=== PATIENT | female | born 1980 | race Caucasian/White ===

== ENCOUNTER → 2020-04-21 08:24 | Outpatient (BNVA) | payer MEDICAID, SELFPAY | PROVIDERS: Family Provider Physician Assistant Medical; PCP Physician Assistant Medical; Referring Provider Family Medicine; Visit Provider Anesthesiology Pain Medicine | DX: G89.29 Other chronic pain (principal); M54.41 Lumbago with sciatica, right side; M51.36 Other intervertebral disc degeneration, lumbar region; M47.816 Spondylosis without myelopathy or radiculopathy, lumbar region; M54.9 Dorsalgia, unspecified; M51.9 Unspecified thoracic, thoracolumbar and lumbosacral intervertebral disc disorder; M54.16 Radiculopathy, lumbar region; F17.210 Nicotine dependence, cigarettes, uncomplicated; Z79.899 Other long term (current) drug therapy | CPT/HCPCS: 99203 ==

== ENCOUNTER 2020-04-28 08:48 | Outpatient (CLI) | payer MEDICAID, SELFPAY ==
--- NOTE | 2020-04-28 09:00 | MR_ITS ---
WS: [id number] MRI LUMBAR SPINE NONCONTRAST TECHNIQUE: Sagittal T1, T2 and STIR imaging. Axial T1 and T2 imaging. CLINICAL INFORMATION: LUMBAR RADICULOPATHY COMPARISON: None. FINDINGS: Mild lumbar curve. No acute compression. No high-grade central canal stenosis. L1-L2: Normal L2-L3: No significant disc bulging. Mild facet arthropathy. Spinal canal and foramen are patent. L3-L4: No significant disc bulging. Moderate facet arthropathy. Spinal canal and foramen are patent. L4-L5: Minimal annular bulging. Mild left and no significant right foraminal narrowing. Moderate face t arthropathy. Slight narrowing of the subarticular recess bilaterally. L5-S1: Minimal annular bulging. Slight effacement of ventral thecal sac. Spinal canal and foramen are patent. Mild to moderate facet arthropathy. Visualized pelvic bony structures: Normal. Paravertebral soft tissues: Normal. MR/MR lumbar spine wo con* [id number] IMPRESSION: 1. Mild lumbar curve. No acute compression. No high-grade central canal stenos is. 2. Mild annular bulging L4-5 with slight narrowing of the subarticular recess bilaterally. Mild left foraminal narrowing. Moderate facet arthropathy at this level. 3. Minimal annular bulging L5-S1. Spinal canal and foramen are patent. 4. Mild to moderate facet arthropathy L3-L4 and L5-S1.
== END 2020-04-28 08:49 | disposition home or self-care (01) ==
LOC: RADWPI 08:52
PROVIDERS: PCP Physician Assistant Medical; Visit Provider Anesthesiology Pain Medicine
DX: M54.16 Radiculopathy, lumbar region (principal); M51.27 Other intervertebral disc displacement, lumbosacral region; M47.816 Spondylosis without myelopathy or radiculopathy, lumbar region; M47.817 Spondylosis without myelopathy or radiculopathy, lumbosacral region
CPT/HCPCS: 72148

== ENCOUNTER 2020-05-19 11:33 | Outpatient (CLI) | payer MEDICAID, SELFPAY ==
--- NOTE | 2020-05-19 12:15 | XR_ITS ---
WS: [id number] KUB, 05/19/2020 Clinical Data: RENAL STONE Comparison: CT abdomen and pelvis, 05/18/2020 Findings: No abnormal intraabdominal masses or calcifications are seen. There is no dilatated small bowel or ev idence of obstruction. There is a large amount of fecal material throughout the colon obscuring detail. The patient has had upper abdominal surgery. There are also clips overlying the sacrum from surgery. XR/XR KUB [id number] Impression: Negative KUB.
== END 2020-05-19 11:34 | disposition home or self-care (01) ==
LOC: RAD 11:35
PROVIDERS: PCP Physician Assistant Medical; Visit Provider Urology
DX: N20.0 Calculus of kidney (principal); G89.29 Other chronic pain; M54.41 Lumbago with sciatica, right side; F17.210 Nicotine dependence, cigarettes, uncomplicated; M47.816 Spondylosis without myelopathy or radiculopathy, lumbar region; M51.36 Other intervertebral disc degeneration, lumbar region; M54.16 Radiculopathy, lumbar region; M51.9 Unspecified thoracic, thoracolumbar and lumbosacral intervertebral disc disorder; M54.9 Dorsalgia, unspecified; Z79.891 Long term (current) use of opiate analgesic
CPT/HCPCS: 74018; 81003; 87635; 99214

== ENCOUNTER 2020-05-20 11:02 | Day surgery (SDC) | payer MEDICAID, SELFPAY ==
[2020-05-19 17:09] VITALS: BMI 46.5
[2020-05-20] VITALS (9 sets, daily range): BP systolic 133–168; BP diastolic 82–121; PULSE 88–100; RESP 12–18; TEMP 36.2–36.3; O2SAT 93–98
--- NOTE | 2020-05-20 | SCC_ITS ---
Procedure Done: 1. Right retrograde ureteropyelogram 2. Cystoscopy, ureteroscopy, laser lithotripsy, stent 78.5 seconds of fluoroscopic guidance, for a cumulative dose of 40.56 mGy, was provided to Dr. Muhammad by the radiology department. C-arm images of the abdomen were saved for the patient's permanent record. [facility]
--- NOTE | 2020-05-20 11:14 | SC_ITS ---
WS: [id number] C-arm fluoroscopy view of the abdomen for right retrograde urogram, 05/20/2020 Clinical Data: Right ureteroscopy, stone Comparison: KUB, 05/19/2020. Findings: Dr. Muhammad injected contrast into the right ureter and then placed a right ureteral stent. SC/C-arm FL for Urology Impression: Placement of right ureteral stent.
[2020-05-20] MEDS: sodium chloride 0.9% 1,000 ML 30 ML IV (12:05)
--- NOTE | 2020-05-20 12:24 | ANES.PREANE2 ---
Pre-Anesthetic Assessment Pre-Anesthetic Assessment: Height/Weight: Height 1.63 m Weight 122.924 kg Temp Pulse Resp BP Pulse Ox 97.4 F L 100 18 133/91 93 05/20/20 11:32 05/20/20 11:32 05/20/20 11:32 05/20/20 11:32 05/20/20 11:32 Preop Diagnosis: Refractory, symptomatic, right ureteral calculus Proposed Procedure: Operation Date: 05/20/20 12:55 Proposed Procedures p Laser Lithotripsy 85280 [id number] N20.1(Not Applicable) - Aleksey Muhammad MD s Cystoscopy(Not Applicable) - MD jean-claude Sanabria right Retrograde Pyelogram(Right) - MD jean-claude Sanabria Ureteroscopy(Not Applicable) - MD jean-claude Sanabria Ureteral Stent Placement(Not Applicable) - Aleksey Muhammad MD Familial anesthetic complications: none Was Beta Micheline taken within 24 hours: N/A Last intake: Intake Last Liquid Date 05/19/20 Last Liquid Time 20:00 Last Solid Date 05/19/20 Last Solid Time 13:00 Social: Social History: Tobacco and No alcohol Exam: Pre-Anes Outpt Exam: alert, oriented x 3, clear to auscultation bilaterally and regular rate & rhythm Airway: Cervical ROM: WNL MP: 4 Dentition: Other (no teeth) Metabolic: Metabolic: Morbid obesity and Thyroid Anesthetic Plan: ASA status: 2 Anesthesia: General Risk of > 500 ml blood loss (7ml/kg in children): No Meds/Allergies Current Medications: Current Medications Generic Name Dose Route Start Last Admin Trade Name Freq PRN Reason Stop Dose Admin Sodium Chloride 1,000 mls @ 30 ml s/hr 05/20/20 08:00 05/20/20 12:05 Sodium Chloride 0.9% IV 05/21/20 07:59 30 mls/hr .Q24H TOD Administration PFSH Anesthesia PFSH: Medical History History of abdominal hernia X2 Hypothyroidism Renal stones Right ureteral calculus Surgical History H/O: hysterectomy Hx of appendectomy Hx of knee surgery right Hx of laparoscopic gastric banding Family History Mother CAD (coronary artery disease) Stroke Father CAD (coronary artery disease) Other Cancer Diabetes Hypertension Social History Smoking and tobacco status: current every day smoker cigarettes Packs smoked per day: 1 Years cigarettes smoked: 28 Alcohol intake: never Marital status: Legally Current occupational status: disabled History of recent travel: No Data Anesthesia Cardiac Studies: No Data to Display
--- NOTE | 2020-05-20 12:33 | P.HPUD_ITS ---
Surgery/Procedure H&P Update DATE OF PROCEDURE: May 20, 2020 DATE H&P PERFORMED: 05/19/20 H&P UPDATE INFORMATION: I have reviewed H&P completed within last 30 days, I have examined patient prior to procedure, No changes to prior documentation and H&P is in [facility] [place] EMR on date indicated PREOP DIAGNOSIS: Refractory, symptomatic, right ureteral calculus PLANNED PROCEDURE: Operation Date: 05/20/20 12:55 Proposed Procedures p Laser Lithotripsy [id number] N20.1(Not Applicable) - Aleksey Muhammad MD s Cystoscopy(Not Applicable) - MD jean-claude Sanabria right Retrograde Pyelogram(Right) - MD jean-claude Sanabria Ureteroscopy(Not Applicable) - MD jean-claude Sanabria Ureteral Stent Placement(Not Applicable) - Aleksey Muhammad MD
[2020-05-20] MEDS: levofloxacin-dextrose 5 % 500 MG/100 ML PREMIX 100 MG IV (14:09)
--- NOTE | 2020-05-20 14:15 | P.OP_ITS ---
Operative Report Date of procedure: May 20, 2020 Pre-op Diagnosis: Refractory, symptomatic, right ureteral calculus Post-op diagnosis: same Procedure Done: 1. Right retrograde ureteropyelogram 2. Cystoscopy, ureteroscopy, laser lithotripsy, stent Implants: Right ureteral stent Pathology: Only tiny sand particles Surgeon: Sabina Anesthesia: General Estimated blood loss: minimal Urine output: Not measured Complications: None Condition: stable Disposition: PACU Brief History: Julissa is a very pleasant 39-year-old white female recently diagnosed at [place] emergency department with a large obstructing right ureteral calculus with severe pain. She was able to be managed as an outpatient but persisted having severe pain that she could marginally control at best. Thankfully she had no infection. We reviewed the option for ESWL when the machine was available on 05/24/2020 versus urgent endoscopy and because of the severity of her pain and the degree of obstruction she elected to proceed with endoscopic laser lithotripsy. Covid test is pending. Appropriate precautions will be taken. - Procedure: After urgent evaluation examination and obtaining of informed consent she was taken to the operating suite on 05/21/2020 where general anesthesia was administered without difficulty after appropriate timeout was performed, SCDs confirmed to be functioning, preoperative antibiotics administered, beta-davi protocol confirmed. Prepped and draped in usual sterile fashion in dorsolithotomy position paying careful attention to avoiding pressure points. The 21 Peruvian cystoscope with 30 degree lens was introduced into the urethral meatus and advanced into the bladder under videoscopy. The bladder was systematically examined. No stones were seen. An 8 Peruvian cone-tipped catheter was intubated into the right ureteral orifice for right retrograde ureteropyelogram: The distal ureter showed normal course and caliber. The stone was identified as a filling defect in the expected position in the ureter proximal to that point was severely dilated. No other obvious filling defects were identified. A flexible tip guidewire was then advanced up the right ureter bypassing the stone and secured to the drapes as a safety wire. A second guidewire was passed in the distal ureter was dilated with a 15 Peruvian 4 cm balloon. The second wire was also utilized forAttempted passage of a 24 cm ureteral access sheath but the sheath would not easily advanced beyond the distal ureter and for that reason it was abandoned. A 7.5 Peruvian offset semirigid ureteroscope was then advanced up the sheath over the working wire and the stone was encountered in the expected position. A 365 ?m thulium superpulse laser fiber was utilized to fragment the stone with excellent change. The fragments were flushed out of the ureter and also removed with the combination of basketing and grasping forceps. Some of the fragments migrated into the renal pelvis. The scope was then passed into the proximal ureter and no additional fragments were seen. The scope was removed and no significant fragments were identified in the ureter distal to the UPJ. A flexible ureteroscope was then passed over the safety wire into the renal pelvis and contrast was injected. Sequential examination of the renal pelvis and calyceal system revealed several stone fragments that were then completely fragmented into sand. These included the upper pole and lower pole calyx as well. Because of the inflammation at the site of the stone lodging it was decided to leave a stent indwelling and a 7 Peruvian by 26 cm double-pigtail stent without string was then advanced over the guidewire through the cystoscope into appropriate position as confirmed via fluoroscopy and cystoscopy. The procedure was completed. She tolerated the procedure well without complications and was awakened in the operating room and returned to recovery in stable condition. PLANS: 1. Anticipate discharge from outpatient surgery 2. Follow-up late next week in my office for cystoscopy and stent removal. KUB first. -
[2020-05-20] MEDS: iohexol 300 mg/mL 50 mL Btl (OR ONLY) XX (14:56)
--- NOTE | 2020-05-20 15:36 | SUR.PHASEI ---
1536- ORAL AIRWAY OUT, SIMPLE MASK AT 10LPM SAT 97%
[2020-05-20] MEDS: HYDROcodone-acetaminophen 5-325 mg Tablet 1 TAB PO (16:17)
--- NOTE | 2020-05-20 17:26 | ANE.PACU2 ---
Inpatient post-anesthesia follow up: Airway intact: Yes Vital signs: Temperature 97.2 F Pulse Rate 97 Respiratory Rate 18 Blood Pressure 160/121 Pulse Oximetry 98 Oxygen Delivery Me thod Nasal Cannula Oxygen Flow Rate 2 Fraction of Inspir ed Oxygen Hydration adequate: Yes Nausea and vomiting: No Pain level: 2 Mental status: Baseline
[2020-05-26 21:43] LABS: Stone Source RIGHT URETER STONE
== END 2020-05-20 16:45 | disposition home or self-care (01) ==
PROVIDERS: PCP Physician Assistant Medical; Visit Provider Urology
PROC: (CPT 52356; principal; 2020-05-20 12:55)
PROC: 0TJB8ZZ Inspection of Bladder, Via Natural or Artificial Opening Endoscopic (ICD-10-PCS; CPT 52000; 2020-05-20 12:55)
PROC: (CPT 74420; 2020-05-20 12:55)
PROC: 0TJ98ZZ Inspection of Ureter, Via Natural or Artificial Opening Endoscopic (ICD-10-PCS; CPT 52351; 2020-05-20 12:55)
PROC: (CPT 50605; 2020-05-20 12:55)
DX: N20.1 Calculus of ureter (principal); E66.01 Morbid (severe) obesity due to excess calories; Z68.42 Body mass index [BMI] 45.0-49.9, adult; E03.9 Hypothyroidism, unspecified; F17.210 Nicotine dependence, cigarettes, uncomplicated
CPT/HCPCS: 52356; 12345; 76000; 82365; 88300; C1725; C2625; J0330; J1100; J1956; J2405; J2704; J3010; J7030

== ENCOUNTER 2020-05-28 08:44 | Outpatient (CLI) | payer MEDICAID, SELFPAY ==
--- NOTE | 2020-05-28 09:30 | XR_ITS ---
WS: [id number] XR KUB [id number] REASON FOR EXAM: URETERAL STONE FINDINGS: Small calculus over the lower pole the right kidney confirmed with CT scan 05/18/2020. Ureteral stent in place on the right. The right ureteral calculus demonstrated on the CT scan is not identified along the course of the ureteral stent or within the confines of the bladder. No other significant findings. XR/XR KUB [id number] IMPRESSION: Right ureteral stent. Previously identified right ureteral calculus no longer i dentifiable. Small right renal calculus.
== END 2020-05-28 08:45 | disposition home or self-care (01) ==
LOC: RAD 08:45
PROVIDERS: PCP Physician Assistant Medical; Visit Provider Urology
DX: N20.1 Calculus of ureter (principal); N20.0 Calculus of kidney; Z96.0 Presence of urogenital implants
CPT/HCPCS: 74018; 81003

== ENCOUNTER 2020-09-28 13:26 | Outpatient (CLI) | payer MEDICAID, SELFPAY ==
--- NOTE | 2020-09-28 13:15 | XRR_ITS ---
PROCEDURE INFORMATION: Exam: XR Abdomen Exam date and time: 09/28/2020 1:33 PM Age: 39 years old Clinical indication: Condition or disease; Kidney or ureter condition; Calculus (stone) in kidney; Prior surgery; Surgery type: Hernia, lap band, appendectomy, hyst; Additional info: Renal stones TECHNIQUE: Imaging protocol: XR of the abdomen. Views: Frontal supine view of the abdomen. 1 View. COMPARISON: CR XR KUB [id number] 05/28/2020 8:53 AM FINDINGS: Tubes, catheters and devices: Interval removal of previously visualized right double-J catheter. Surgical clips overlying the right pelvis. Gastrointestinal tract: Prominent stool. Mild gaseous dilatation of the stomach with underlying lap band. Organs: Evaluation of the renal fossa is limited due to overlying bowel gas and stool. Vasculature: Multiple subcentimeter pelvic calcifications, the majority of which are believed to be vascular in etiology. If urolithiasis is of clinical concern, CT may be of benefit for further evaluation. Bones/joints: Mild degenerative change. Asymmetric right sacroiliac joint sclerosis. XR/XR KUB [id number] IMPRESSION: 1. Evaluation of the renal fossa is limited due to overlying bowel gas and stool. 2. Multiple subcentimeter pelvic calcifications, the majority of which are believed to be vascular in etiology. 3. Additional findings as described above.
== END 2020-09-28 13:27 | disposition home or self-care (01) ==
LOC: RAD 13:28
PROVIDERS: PCP Physician Assistant Medical; Visit Provider Urology
DX: N20.0 Calculus of kidney (principal)
CPT/HCPCS: 74018; 81003

== ENCOUNTER 2020-10-25 10:27 | Outpatient (CLI) | payer MEDICAID, SELFPAY ==
--- NOTE | 2020-10-25 10:34 | XRR_ITS ---
PROCEDURE INFORMATION: Exam: XR Lumbosacral Spine Exam date and time: 10/25/2020 10:37 AM Age: 39 years old Clinical indication: Low back pain; Prior surgery; Surgery type: Lap band TECHNIQUE: Imaging protocol: XR of the lumbosacral spine. Views: 2 or 3 views. COMPARISON: MR lumbar spine wo con* [id number] 04/28/2020 9:06 AM FINDINGS: Bones/joints: Mild degenerative change. Anatomic alignment, without instability. Other: Vascular calcification. XR/XR lumbar spine f/e only [id number] IMPRESSION: Mild degenerative change.
== END 2020-10-25 10:28 | disposition home or self-care (01) ==
LOC: RAD 10:31
PROVIDERS: PCP Physician Assistant Medical; Visit Provider Nurse Practitioner
DX: M54.5 Low back pain (principal)
CPT/HCPCS: 72120

== ENCOUNTER 2020-10-29 18:31 | Emergency (ER) | payer MEDICAID, SELFPAY ==
[2020-10-29 18:57] VITALS: BP 145/93; PULSE 85; RESP 21; TEMP 36.6; O2SAT 96; BMI 46.7
--- NOTE | 2020-10-29 19:09 | ED_ITS ---
HPI - Abdominal Pain General: Chief Complaint: Abdominal Pain Stated Complaint: ab pain Time Seen by Provider: 10/29/20 19:06 Source: patient Mode of arrival: ambulatory Limitations: no limitations History of Present Illness: HPI narrative: 39-year-old female states been having left side abdominal pain over the last 2 weeks. States she had a cough and she has been concerned that she may have disrupted mesh she has in her abdomen for hernia. States she has had sharp pain is worse with movement and cough. States improved respiratory the pain is currently 7 out of 10. Denies any vomiting or diarrhea. Associated Symptoms: Denies chills, dysuria and fever(s) Review of Systems Const: Denies: fever(s), chills, body aches or change in appetite Eyes: Denies: blurry vision or eye discomfort ENMT: Denies: throat pain or dental pain Card: Denies: chest pain Resp: Denies: dyspnea GI: Reports: abdominal pain : Denies: dysuria Musc: Denies: neck pain or back pain Skin/Breast: Denies: rash Neuro: Denies: headache(s) Psych: Denies: depression Ney/Lymph: Denies: easy bruising All/Imm: Denies: urticaria PFSH ED 2 PFSH: Medical History DM2 (diabetes mellitus, type 2) Dyslipidemia History of abdominal hernia X2 Hypothyroidism Low back pain with sciatica Major depressive disorder without psychotic features Renal stones Right ureteral calculus Surgical History H/O: hysterectomy Hx of appendectomy Hx of knee surgery right Hx of laparoscopic gastric banding Family History Mother CAD (coronary artery disease) Stroke Father CAD (coronary artery disease) Other Cancer Diabetes Hypertension Social History Smoking and tobacco status: current every day smoker cigarettes Packs smoked per day: 1 Years cigarettes smoked: 28 Alcohol intake: never Marital status: Legally Current occupational status: disabled History of recent travel: No Physical Exam Const: COMMON NORMALS: no acute distress, patient oriented x3 and healthy appearing HENMT: COMMON NORMALS: normocephalic and atraumatic HEAD & SCALP: normocephalic and atraumatic Eye: COMMON NORMALS: Equal, round and reactive pupils present and EOMs intact bilaterally PUPIL: Yes Equal, round and reactive pupils present Neck/C-Spine: COMMON NORMALS: full ROM and supple Chest: COMMONS NORMALS: normal inspection of the chest and normal palpation of entire chest wall Resp: COMMON NORMALS: normal respiratory effort, No retractions, No use of accessory muscles and clear to auscultation bilaterally AUSCULTATION: clear to auscultation bilaterally Cardio: COMMON NORMALS: regular rate, regular rhythm and No murmurs present (Cardio) RATE: regular rate RHYTHM: regular rhythm GI: COMMON NORMALS: Normal to inspection, nondistended, normoactive bowel sounds present, Soft to palpation and no masses PALPATION: Yes Soft to palpation OTHER: diffuse tenderness Extremity: COMMON NORMALS: normal to inspection and full ROM Neuro: COMMON NORMALS: patient oriented x3, moves all extremities and no focal motor deficits Psych: COMMON NORMALS: mental status grossly normal, Normal thought process present and cooperative THOUGHT PROCESS: Normal thought process present Skin: COMMON NORMALS: no rashes or lesions noted and no wounds GENERAL SKIN EXAM: no rashes or lesions noted Course Vital Signs: Vital signs: Vital Signs Temperature 97.8 F 10/29/20 18:57 Pulse Rate 85 10/29/20 18:57 Respiratory Rate 21 H 10/29/20 18:57 Blood Pressure 145/93 10/29/20 18:57 Pulse Oximetry 96 10/29/20 18:57 MDM - Abdominal Pain MDM Narrative: Medical decision making narrative: Patient presents here with abdominal pain. CT showed a possible small kidney stone. Her pain is much improved here. Other findings are all normal. She is stable for discharge and return if worsening. She understands agrees to plan. Lab Data: Labs: Lab Results 10/29/20 10/29/20 10/29/20 Range/Units 19:15 19:15 19:26 WBC 11.7 H (4.0-10.0) 10^3/ uL RBC 5.58 H (4.1-5.3) 10^6/u L Hgb 16.0 H (11.5-15.3) g/dL Hct 47.9 H (37.0-47.0) % MCV 85.8 (81-99) fL MCH 28.7 (28.0-34.0) pg MCHC 33.4 (30.0-36.0) g/dL RDW 13.0 (12.1-15.1) % Plt Count 213 (130-400) 10^3/c mm MPV 13.0 H (7.4-10.4) fL Neut % (Auto) 61.7 % Lymph % (Auto) 28.9 % [place] % (Auto) 6.2 % Eos % (Auto) 2.4 % Baso % (Auto) 0.5 % Neut # (Auto) 7.19 (1.8-7.7) 10^3/u L Lymph # (Auto) 3.4 (0.8-4.8) 10^3/u L [place] # (Auto) 0.7 (0.2-0.9) 10^3/u L Eos # (Auto) 0.3 (0.0-0.8) 10^3/u L Baso # (Auto) 0.1 (0.0-0.1) 10^3/u L Nucleated RBC % (a uto) 0 % Nucleated RBCs # 0.0 /100WBC Sodium (136-145) mmol/L Potassium (3.5-5.1) mmol/L Chloride (98-107) mmol/L Carbon Dioxide (22-29) mmol/L Anion Gap (5-19) BUN (6-20) mg/dL Creatinine (0.5-0.9) mg/dL GFR Calculation (90-130) mL/min Glucose (65-115) mg/dL Calculated Osmolal ity (285-295) mOsm/k g Calcium (8.5-10.5) mg/dL Total Bilirubin (0.15-1.2) mg/dL AST (0-32) U/L ALT (0-33) U/L Alkaline Phosphata se (35-105) IU/L Total Protein (6.6-8.7) g/dL Albumin (3.5-5.2) g/dL Globulin (1.3-4.6) g/dL Lipase (13-60) U/L HCG, Qual Negative (Negative) Urine Color Yellow (Yellow) Urine Appearance Clear (CLEAR) Urine pH 5 (5-7) Ur Specific Gravit y 1.010 (1.005-1.030) Urine Protein Neg (Negative) Urine Glucose (UA) Norm (Normal) Urine Ketones Negative (Negative) Urine Blood Neg (Negative) Urine Nitrate Negative (Negative) Urine Bilirubin Neg (Negative) Urine Urobilinogen Norm (Negative) mg/dL Ur Leukocyte Quynh ase 1+ H (Negative) Urine RBC 0-4 H (0-2) /hpf Urine WBC 5-10 H (0-5) /hpf Ur Squamous Epith Cells 5-10 H (0-5) /hpf Amorphous Sediment Not Reportable Urine Bacteria Trace (NONE) /hpf 10/29/20 Range/Units 19:26 WBC (4.0-10.0) 10^3/ uL RBC (4.1-5.3) 10^6/u L Hgb (11.5-15.3) g/dL Hct (37.0-47.0) % MCV (81-99) fL MCH (28.0-34.0) pg MCHC (30.0-36.0) g/dL RDW (12.1-15.1) % Plt Count (130-400) 10^3/c mm MPV (7.4-10.4) fL Neut % (Auto) % Lymph % (Auto) % [place] % (Auto) % Eos % (Auto) % Baso % (Auto) % Neut # (Auto) (1.8-7.7) 10^3/u L Lymph # (Auto) (0.8-4.8) 10^3/u L [place] # (Auto) (0.2-0.9) 10^3/u L Eos # (Auto) (0.0-0.8) 10^3/u L Baso # (Auto) (0.0-0.1) 10^3/u L Nucleated RBC % (a uto) % Nucleated RBCs # /100WBC Sodium 135 L (136-145) mmol/L Potassium 4.1 (3.5-5.1) mmol/L Chloride 98 (98-107) mmol/L Carbon Dioxide 26 (22-29) mmol/L Anion Gap 15.1 (5-19) BUN 8 (6-20) mg/dL Creatinine 0.6 (0.5-0.9) mg/dL GFR Calculation 110.2 (90-130) mL/min Glucose 111 (65-115) mg/dL Calculated Osmolal ity 279 L (285-295) mOsm/k g Calcium 9.0 (8.5-10.5) mg/dL Total Bilirubin 0.2 (0.15-1.2) mg/dL AST 15 (0-32) U/L ALT 20 (0-33) U/L Alkaline Phosphata se 83 (35-105) IU/L Total Protein 7.3 (6.6-8.7) g/dL Albumin 4.0 (3.5-5.2) g/dL Globulin 3.3 (1.3-4.6) g/dL Lipase 28 (13-60) U/L HCG, Qual (Negative) Urine Color (Yellow) Urine Appearance (CLEAR) Urine pH (5-7) Ur Specific Gravit y (1.005-1.030) Urine Protein (Negative) Urine Glucose (UA) (Normal) Urine Ketones (Negative) Urine Blood (Negative) Urine Nitrate (Negative) Urine Bilirubin (Negative) Urine Urobilinogen (Negative) mg/dL Ur Leukocyte Quynh ase (Negative) Urine RBC (0-2) /hpf Urine WBC (0-5) /hpf Ur Squamous Epith Cells (0-5) /hpf Amorphous Sediment Urine Bacteria (NONE) /hpf Imaging Data ^: CT Abd/Pel: Attestation: I personally reviewed and interpreted this imaging study as follows: Radiologist's impression: [address] [address] [address] Scan Report Signed Patient: Julissa Avalos Unit #: [id number] : 1980 Age/Sex: 39 / F ADM Date: 10/29/20 Loc: ER Room/Bed: Attending Dr: Ordering Provider/Ordering MD: Ajay Coffman MD Date of Service: 10/29/20 Procedure(s): CT abdomen pelvis w con* [id number] Accession Number(s): [id number] Report Number: [id number] PROCEDURE INFORMATION: Exam: CT Abdomen And Pelvis With Contrast Exam date and time: 10/29/2020 7:56 PM Age: 39 years old Clinical indication: Abdominal pain; Localized; Left lower quadrant (llq); Prior surgery; Surgery type: Hernia. Appy. Hyst. Lap band. ; Patient HX: Llq pain. ; Additional info: Abd pain TECHNIQUE: Imaging protocol: Computed tomography of the abdomen and pelvis with contrast. Total images: 273 Radiation optimization: All CT scans at this facility use at least one of these dose optimization techniques: automated exposure control; mA and/or kV adjustment per patient size (includes targeted exams where dose is matched to clinical indication); or iterative reconstruction. Contrast material: OMNI 300; Contrast volume: 95 ml; Contrast route: INTRAVENOUS (IV); COMPARISON: CT Abdomen/Pelvis Renal [id number] 05/18/2020 8:03 AM RADIATION DOSE METRICS: Total DLP (mGy-cm): 1821.42 FINDINGS: Lungs: Limited assessment of the lung bases fails to reveal evidence for acute cardiopulmonary process. Scant right pleural effusion. Liver: Diffuse fatty infiltration of the liver with hepatomegaly. No visible hepatic mass or cystic structure. Gallbladder and bile ducts: Normal. No calcified stones. No ductal dilation. Pancreas: Pancreas unremarkable. No visible pancreatic ductal ectasia. Spleen: Normal. No splenomegaly. Adrenal glands: Adrenal glands unremarkable. Kidneys and ureters: Minimal left pelvicaliectasis to a tiny 2 mm proximal left ureterolithiasis (series 2, image 48 and series 602, image 37). No visible residual nephrolithiasis. No hydronephrosis, nephrolithiasis, or ureterolithiasis right kidney. Stomach and bowel: Gastric banding procedure. Assessment of the hollow viscus fails to reveal evidence of active or acute pathology. Nonobstructed bowel pattern. No visible acute diverticulitis. No visible adynamic or reactive ileus. Appendix: Status post appendectomy. Intraperitoneal space: No visible pneumoperitoneum or intraperitoneal ascites. No visible evidence of mesenteric lymphadenitis or active mesenteritis/panniculitis. Vasculature: Portal vein patent. The abdominal aorta is nonaneurysmal. Mild arterial sclerotic disease. Lymph nodes: No current visible evidence of active mesenteric or retroperitoneal lymphadenopathy. Urinary bladder: Urinary bladder unremarkable. Reproductive: Status post hysterectomy. Bones/joints: No visible active or acute osseous pathology. Mild scoliotic curvature of the spine. Soft tissues: Unremarkable. Other findings: Marked obesity. CT/CT abdomen pelvis w con* [id number] IMPRESSION: Minimal left pelvicaliectasis to a tiny 2 mm proximal left ureterolithiasis. No visible residual nephrolithiasis. Radiation Dose CTDIVOL = (mGy): DLP = 1821 Discharge Plan Discharge Patient Disposition: Home Clinical Impression: Abdominal pain Qualifiers: Abdominal location: left upper quadrant Qualified Code(s): R10.12 - Left upper quadrant pain Condition: Stable Prescriptions: New ondansetron 4 mg tablet,disintegrating 4 mg PO Q6H PRN (Reason: nausea and vomiting) Qty: 14 RF: 0 tramadol 50 mg tablet 50 mg PO Q8H PRN (Reason: pain) Qty: 20 RF: 0 No Action Vraylar 3 mg capsule 3 mg PO DAILY@0900 RF: 0 doxazosin 2 mg tablet 2 mg PO DAILY@1999 RF: 0 propranolol 10 mg tablet 10 mg PO BID@ RF: 0 levothyroxine 88 mcg capsule 88 mcg PO DAILY@0900 RF: 0 metformin 1,000 mg tablet 1,000 mg PO BID@ RF: 0 cetirizine 10 mg Tablet 10 mg PO DAILY@0900 RF: 0 gabapentin 300 mg Capsule 300 mg PO TID@,, RF: 0 glipizide 5 mg Tablet 5 mg PO DAILY@0900 RF: 0 Lunesta 1 mg Tablet 1 mg PO BEDTIME@1999 RF: 0 hydrochlorothiazide 12.5 mg Tablet 12.5 mg PO DAILY@0900 RF: 0 Discharge Orders: Discharge ED (Routine); Ordered 10/29/20 Ordered By: Ajay Coffman Referrals: Joe White [Primary Care Provider] - Discharge Diet: Advance as tolerated Discharge Activity: Resume usual activity Patient Instructions: Abdominal Pain (ED), Opioid Safety Coding Level of Care Code ED [employer] for [employer] Fwd Exam Comprehensive
[2020-10-29] MEDS: HYDROmorphone 1 mg/mL INJ 1 mL IVP (19:26)
[2020-10-29] MEDS: ondansetron 2 mg/ML SDV 2 mL 4 MG IVP (19:26)
[2020-10-29 19:30] LABS: Basophils # 0.1 10^3/uL (0.0-0.1); Basophils % 0.5 %; Eosinophils # 0.3 10^3/uL (0.0-0.8); Eosinophils % 2.4 %; Hematocrit 47.9 % (37.0-47.0); Lymphocytes # 3.4 10^3/uL (0.8-4.8); Lymphocytes % 28.9 %; Mean Corpuscular HGB Conc 33.4 g/dL (30.0-36.0); Mean Corpuscular Hemoglobin 28.7 pg (28.0-34.0); Mean Corpuscular Volume 85.8 fL (81-99); Monocytes # 0.7 10^3/uL (0.2-0.9); Monocytes % 6.2 %; Neutrophils # 7.19 10^3/uL (1.8-7.7); Neutrophils % 61.7 %; Nucleated Red Blood Cells % 0 %; Platelet Count 213 10^3/cmm (130-400); Red Blood Count 5.58 10^6/uL (4.1-5.3); White Blood Count 11.7 10^3/uL (4.0-10.0)
[2020-10-29 19:35] LABS: Add Urine Microscopic? YES; Bilirubin Urine Neg (Negative); Blood Urine Neg (Negative); Glucose Urine UA Norm (Normal); Ketones Urine Negative (Negative); Leukocyte Esterase Urine 1+ (Negative); Nitrate Urine Negative (Negative); Protein Urine Neg (Negative); Urine Appearance Clear (CLEAR); Urine Color Yellow (Yellow); Urobilinogen Urine Norm (Negative); pH Urine 5 (5-7)
[2020-10-29 19:37] LABS: Add Urine Culture? No; Bacteria Urine TRACE /hpf; RBC Urine 0-4 /hpf (0-2)
[2020-10-29 19:38] LABS: HCG Qualitative Urine. Negative (Negative)
[2020-10-29 19:45] LABS: Alanine Aminotransferase 20 U/L (0-33); Alkaline Phosphatase 83 IU/L (35-105); Anion Gap 15.1 (5-19); Aspartate Amino Transferase 15 U/L (0-32); Blood Urea Nitrogen 8 mg/dL (6-20); Carbon Dioxide 26 mmol/L (22-29); Chloride 98 mmol/L (98-107); Globulin 3.3 g/dL (1.3-4.6); Glomerular Filtration Rate 110.2 mL/min (90-130); Glucose 111 mg/dL (65-115); Lipase 28 U/L (13-60); Osmolality Calculated 279 mOsm/kg (285-295); Potassium 4.1 mmol/L (3.5-5.1); Sodium 135 mmol/L (136-145); Total Bilirubin 0.2 mg/dL (0.15-1.2); Total Protein 7.3 g/dL (6.6-8.7)
[2020-10-29] MEDS: iohexol 300 mg/mL 100 mL Btl IV (20:02)
[2020-10-29 20:50] VITALS: BP 153/115; PULSE 72; RESP 18; O2SAT 96
== END 2020-10-29 20:50 | disposition home or self-care (01) ==
PROVIDERS: Emergency Provider Emergency Medicine; PCP Physician Assistant Medical
DX: R10.12 Left upper quadrant pain (principal); Z79.84 Long term (current) use of oral hypoglycemic drugs; E11.9 Type 2 diabetes mellitus without complications; E78.5 Hyperlipidemia, unspecified; F17.210 Nicotine dependence, cigarettes, uncomplicated; Z87.442 Personal history of urinary calculi
CPT/HCPCS: 74177; 80053; 81001; 81025; 83690; 85025; 96374; 96375; 99283; J1170; J2405; Q9967

== ENCOUNTER 2020-11-23 14:20 | Outpatient (CLI) | payer MEDICAID, SELFPAY ==
--- NOTE | 2020-11-23 14:45 | XRR_ITS ---
PROCEDURE INFORMATION: Exam: XR Abdomen Exam date and time: 11/23/2020 2:31 PM Age: 39 years old Clinical indication: Condition or disease; Kidney or ureter condition; Calculus (stone) in kidney; Prior surgery; Surgery type: Lab band, hernia mesh, appendectomy, hysterectomy; Additional info: N20.0 - calculus of kidney TECHNIQUE: Imaging protocol: XR of the abdomen. Views: Frontal supine view of the abdomen. 1 View. COMPARISON: CT abdomen pelvis w con* [id number] 10/29/2020 8:00 PM FINDINGS: Gastrointestinal tract: Normal. No bowel dilation. There is a evidence of bariatric surgical procedure present in the EG junction area. Organs: The kidneys are obscured by colonic contents. No definite right side urinary tract stones are documented. There is a faint density in the left upper quadrant which appears to be a 2 mm stone in the projection of the the left kidney. This finding was not seen on prior CT examination Bones/joints: Unremarkable. XR/XR KUB [id number] IMPRESSION: 1. No acute findings. 2. Possible left renal stone 3. Status post bariatric surgery
== END 2020-11-23 14:21 | disposition home or self-care (01) ==
PROVIDERS: PCP Physician Assistant Medical; Visit Provider Urology
DX: N20.0 Calculus of kidney (principal); Z98.84 Bariatric surgery status
CPT/HCPCS: 74018; 81003

== ENCOUNTER 2021-02-25 12:19 | Emergency (ER) | payer MEDICAID, SELFPAY ==
[2021-02-25 13:36] VITALS: BP 135/91; PULSE 76; RESP 18; TEMP 36.7; O2SAT 95; BMI 46.0
--- NOTE | 2021-02-25 13:52 | XR_ITS ---
WS: [id number] Thoracic spine, AP and lateral views, 02/25/2021 Clinical Data: bilateral mid back pain Comparison: None. Findings: No compression fractures are seen. The disc heights are normal. The paravertebral regions are normal. 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 A gastric band is noted in the left upper quadrant. 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
--- NOTE | 2021-02-25 13:53 | W.ED.BACK ---
HPI - Back Pain/Injury General: Chief Complaint: Back Pain/Injury Stated Complaint: ABD N/V Time Seen by Provider: 02/25/21 13:49 Source: patient Mode of arrival: ambulatory Limitations: no limitations History of Present Illness: HPI Narrative: 40-year-old female presents to the ER today for mid back pain that started 5 days ago. Patient reports she woke up with this pain but denies any injury or new activities over the weekend that might have caused it. Patient reports it started on her sides and radiates into her mid back. It is located on both sides however the right is worse than the left. She reports it is worse with movement and with deep breathing. Patient reports the pain is gotten so bad over the last 2 days she has had nausea and vomiting due to pain. She denies any urinary symptoms at this time. She reports no other symptoms associated with this pain. Patient denies taking anything for the pain at home at this time. Denies headache, fever, shortness of breath, chest pain, diarrhea, constipation, change in bowel or bladder habits. MD elicited complaint: back pain Onset (ago): day(s) (5) Timing: constant Severity: moderate Similar Symptoms Previously: No Quality: sharp Location: thoracic spine Exacerbating factors: movement Relieving factors: none Associated symptoms: Reports nausea (secondary to pain) and vomiting; Deny abdominal pain, chills, dysuria, fatigue, fever(s), hematuria or urinary urgency Review of Systems Const: Denies: fever(s), chills or fatigue ENMT: Denies: throat pain, nasal discharge or nasal congestion Card: Denies: chest pain or palpitations Resp: Denies: dyspnea or wheezing GI: Reports: nausea (secondary to pain) and vomiting; Denies: abdominal pain, diarrhea or constipation : Reports: flank pain (Bilateral); Denies: difficulty voiding, dysuria, urinary frequency, urinary urgency, urinary hesitancy or hematuria Musc: Reports: back pain (Thoracic, bilateral); Denies: limited range of motion Skin/Breast: Denies: rash Neuro: Denies: headache(s) Psych: Denies: anxiety or depression [facility] ED PFSH: Medical History DM2 (diabetes mellitus, type 2) Dyslipidemia History of abdominal hernia X2 Hypothyroidism Low back pain with sciatica Major depressive disorder without psychotic features Renal stones Right ureteral calculus Surgical History H/O: hysterectomy Hx of appendectomy Hx of knee surgery right Hx of laparoscopic gastric banding Family History Mother CAD (coronary artery disease) Stroke Father CAD (coronary artery disease) Other Cancer Diabetes Hypertension Social History Smoking and tobacco status: current every day smoker cigarettes Packs smoked per day: 1 Years cigarettes smoked: 28 Alcohol intake: never Marital status: Legally Current occupational status: disabled History of recent travel: No Physical Exam Const: COMMON NORMALS: no acute distress and patient oriented x3 GENERAL APPEARANCE: cooperative and comfortable NUTRITIONAL APPEARANCE: obese Neck/C-Spine: COMMON NORMALS: no JVD Lymph: LYMPHATIC: no lymphadenopathy noted Chest: COMMONS NORMALS: normal inspection of the chest and normal palpation of entire chest wall Resp: COMMON NORMALS: normal respiratory effort, No retractions, No use of accessory muscles and clear to auscultation bilaterally AUSCULTATION: clear to auscultation bilaterally, no rales, no rhonchi and no wheezes Cardio: COMMON NORMALS: no JVD, regular rate, regular rhythm and No murmurs present (Cardio) RATE: regular rate RHYTHM: regular rhythm GI: COMMON NORMALS: Normal to inspection, nondistended, normoactive bowel sounds present, Soft to palpation and non-tender PALPATION: Yes Soft to palpation : COMMON NORMALS: Yes no CVA tenderness and Yes normal external appearance BLADDER/KIDNEY EXAM: Yes no CVA tenderness Back/Pelvis: COMMON NORMALS: no CVA tenderness and thoracic and lumbar spine normal to inspection THORACIC SPINE/UPPER BACK: Yes ROM limited (secondary to pain), Yes pain with ROM and No thoracic spinal tenderness Extremity: COMMON NORMALS: normal to inspection and full ROM Neuro: COMMON NORMALS: patient oriented x3 Psych: COMMON NORMALS: mental status grossly normal and Normal thought process present THOUGHT PROCESS: Normal thought process present Skin: COMMON NORMALS: no rashes or lesions noted GENERAL SKIN EXAM: no rashes or lesions noted Course ED course: We will get x-ray of thoracic spine. Vital Signs: Vital signs: Vital Signs Temperature 98.1 F 02/25/21 13:36 Pulse Rate 76 02/25/21 13:36 Respiratory Rate 18 02/25/21 13:36 Blood Pressure 135/91 02/25/21 13:36 Pulse Oximetry 95 02/25/21 13:36 MDM - Back Pain/Injury Imaging Data^: xray t spine: Radiologist's impression: [address] [place] [address] XRay Report Signed Patient: Julissa Avalos Unit #: [id number] : 1980 Age/Sex: 40 / F ADM Date: 02/25/21 Loc: ER Room/Bed: Attending Dr: Ordering Provider/Ordering MD: Brianne Buckner Date of Service: 02/25/21 Procedure(s): XR thoracic spine 2V [id number] Accession Number(s): [id number] Report Number: [id number] WS: [id number] Thoracic spine, AP and lateral views, 02/25/2021 Clinical Data: bilateral mid back pain Comparison: None. Findings: No compression fractures are seen. The disc heights are normal. The paravertebral regions are normal. 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 A gastric band is noted in the left upper quadrant. 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 Dictated By: Kerline Talbot MD Signed By: Kerline Talbot MD Signed Date/Time: 02/25/211410 DD/ 09 Critical Care Time Critical Care Time: Critical Care Time: No Discharge Plan Discharge Patient Disposition: Home Clinical Impression: Acute costochondritis Condition: Stable Prescriptions: New naproxen 500 mg tablet 500 mg PO BID PRN (Reason: pain) Qty: 20 RF: 0 Medrol ([place]) 4 mg tablets,dose pack See Rx Instructions PO .COMPLEX Qty: 21 RF: 0 Zofran 4 mg tablet 4 mg PO Q8H PRN (Reason: nausea and vomiting) 4 Days RF: 0 No Action Vraylar 3 mg capsule 3 mg PO DAILY@0900 RF: 0 doxazosin 2 mg tablet 2 mg PO DAILY@2000 RF: 0 propranolol 10 mg tablet 10 mg PO BID@09,20 RF: 0 levothyroxine 88 mcg capsule 88 mcg PO DAILY@00 RF: 0 eszopiclone [Lunesta] 3 mg tablet PO RF: 0 hydrocodone-acetaminophen 10-325 mg tablet 1 tab PO Q4H PRNRF: 0 metformin 1,000 mg tablet 1,000 mg PO BID@ RF: 0 cetirizine 10 mg Tablet 10 mg PO DAILY@00 RF: 0 gabapentin 300 mg Capsule 300 mg PO TID@ RF: 0 glipizide 5 mg Tablet 5 mg PO DAILY@899 RF: 0 hydrochlorothiazide 12.5 mg Tablet 12.5 mg PO DAILY@0900 RF: 0 ondansetron 4 mg tablet,disintegrating 4 mg PO Q6H PRN (Reason: nausea and vomiting) Qty: 14 RF: 0 Discharge Orders: Discharge ED (Routine); Ordered 02/25/21 Ordered By: Brianne Buckner Referrals: Joe White [Primary Care Provider] - Discharge Diet: Diabetic Discharge Activity: Resume usual activity Patient Instructions: Pleurisy (ED), Opioid Safety Activity Restrictions/Additional Instructions: Take Medrol Dosepak and naproxen as prescribed. Take Zofran as prescribed. Warm moist heat and muscle rub topically recommended but do not use together. Follow-up with PCP next week as discussed if no improvement. Return to the ER with any new or worsening symptoms. Coding Level of Care Code ED [employer] for [employer] Exam Comprehensive
--- NOTE | 2021-02-25 14:31 | ED_ITS ---
HPI - Back Pain/Injury General: Chief Complaint: Back Pain/Injury Stated Complaint: ABD N/V Time Seen by Provider: 02/25/21 13:49 Source: patient Limitations: no limitations History of Present Illness: Severity: moderate Similar Symptoms Previously: No Quality: sharp Exacerbating factors: movement Relieving factors: none PFSH ED PFSH: Medical History DM2 (diabetes mellitus, type 2) Dyslipidemia History of abdominal hernia X2 Hypothyroidism Low back pain with sciatica Major depressive disorder without psychotic features Renal stones Right ureteral calculus Surgical History H/O: hysterectomy Hx of appendectomy Hx of knee surgery right Hx of laparoscopic gastric banding Family History Mother CAD (coronary artery disease) Stroke Father CAD (coronary artery disease) Other Cancer Diabetes Hypertension Social History Smoking and tobacco status: current every day smoker cigarettes Packs smoked per day: 1 Years cigarettes smoked: 28 Alcohol intake: never Marital status: Legally Current occupational status: disabled History of recent travel: No Course Vital Signs: Vital signs: Vital Signs Temperature 98.1 F 02/25/21 13:36 Pulse Rate 76 02/25/21 13:36 Respiratory Rate 18 02/25/21 13:36 Blood Pressure 135/91 02/25/21 13:36 Pulse Oximetry 95 02/25/21 13:36 MDM - Back Pain/Injury MDM Narrative: Medical decision making narrative: X-ray of thoracic spine done in ER. Normal thoracic spine x-ray other than mild degenerative disease. Based on history and physical exam this is likely a costochondritis given bilateral radiating pain. We will treat with anti-inflammatory and steroid at this time I am aware patient is a diabetic and we discussed that this will likely raise her sugars while taking them. Follow-up with primary care in 1 week if no improvement. Discharge Plan Discharge Patient Disposition: Home Clinical Impression: Acute costochondritis Condition: Stable Prescriptions: New naproxen 500 mg tablet 500 mg PO BID PRN (Reason: pain) Qty: 20 RF: 0 Medrol (Eduardo) 4 mg tablets,dose pack See Rx Instructions PO .COMPLEX Qty: 21 RF: 0 Zofran 4 mg tablet 4 mg PO Q8H PRN (Reason: nausea and vomiting) 4 Days RF: 0 No Action Vraylar 3 mg capsule 3 mg PO DAILY@0900 RF: 0 doxazosin 2 mg tablet 2 mg PO DAILY@1999 RF: 0 propranolol 10 mg tablet 10 mg PO BID@,20 RF: 0 levothyroxine 88 mcg capsule 88 mcg PO DAILY@0900 RF: 0 eszopiclone [Lunesta] 3 mg tablet PO RF: 0 hydrocodone-acetaminophen 10-325 mg tablet 1 tab PO Q4H PRNRF: 0 metformin 1,000 mg tablet 1,000 mg PO BID@, RF: 0 cetirizine 10 mg Tablet 10 mg PO DAILY@00 RF: 0 gabapentin 300 mg Capsule 300 mg PO TID@,, RF: 0 glipizide 5 mg Tablet 5 mg PO DAILY@0900 RF: 0 hydrochlorothiazide 12.5 mg Tablet 12.5 mg PO DAILY@0900 RF: 0 ondansetron 4 mg tablet,disintegrating 4 mg PO Q6H PRN (Reason: nausea and vomiting) Qty: 14 RF: 0 Discharge Orders: Discharge ED (Routine); Ordered 02/25/21 Ordered By: Brianne Buckner Referrals: Joe White [Primary Care Provider] - Discharge Diet: Diabetic Discharge Activity: Resume usual activity Patient Instructions: Pleurisy (ED), Opioid Safety Activity Restrictions/Additional Instructions: Take Medrol Dosepak and naproxen as prescribed. Take Zofran as prescribed. Warm moist heat and muscle rub topically recommended but do not use together. Follow-up with PCP next week as discussed if no improvement. Return to the ER with any new or worsening symptoms. Coding Level of Care Code ED Scarfer Operator for Alcides Biggs
[2021-02-25] MEDS: ondansetron 4 MG Tablet PO (14:36)
[2021-02-25 14:41] VITALS: BP 139/90; PULSE 72; RESP 18; O2SAT 95
== END 2021-02-25 14:38 | disposition home or self-care (01) ==
PROVIDERS: Emergency Provider Physician Assistant; PCP Physician Assistant Medical
DX: M94.0 Chondrocostal junction syndrome [Tietze] (principal); Z79.84 Long term (current) use of oral hypoglycemic drugs; E11.9 Type 2 diabetes mellitus without complications; E78.5 Hyperlipidemia, unspecified; F17.210 Nicotine dependence, cigarettes, uncomplicated
CPT/HCPCS: 72070; 99282; Q0162

== ENCOUNTER 2021-03-17 07:42 | Outpatient (CLI) | payer MEDICAID, SELFPAY ==
--- NOTE | 2021-03-17 | XR_ITS ---
WS: [id number] Exam: XR KUB [id number] Date/Time of Exam: 03/17/2021 8:01 AM Reason For Exam: KIDNEY PAIN Comparison 11/23/2020. No bowel obstruction or free air. No calcifications seen in the region of the kidneys. Moderate amoun t retained stool throughout the colon. Surgical clips in the right abdomen and pelvis. No sign of org an enlargement. Regional bony structures are intact. XR/XR KUB [id number] IMPRESSION: 1. No acute abdominal finding. 2. Constipation.
== END 2021-03-17 07:43 | disposition home or self-care (01) ==
LOC: RAD 07:45
PROVIDERS: PCP Physician Assistant Medical; Visit Provider Urology
DX: N23 Unspecified renal colic (principal); K59.00 Constipation, unspecified
CPT/HCPCS: 74018; 81003

== ENCOUNTER 2021-04-02 23:22 | Emergency (ER) | payer MEDICAID, SELFPAY ==
--- NOTE | 2021-04-02 23:25 | XRR_ITS ---
PROCEDURE INFORMATION: Exam: XR Chest Exam date and time: 04/02/2021 11:25 PM Age: 40 years old Clinical indication: Pain; Chest pressure; Additional info: Cp TECHNIQUE: Imaging protocol: XR of the chest. Views: 1 view. COMPARISON: CR Chest 1 [place] [id number] 02/03/2019 1:10 AM FINDINGS: Lungs: Strandy opacities are seen in lower hemithoraces bilaterally likely representing atelectasis. Pleural spaces: Unremarkable. No pleural effusion. No pneumothorax. Heart/Mediastinum: Unremarkable. No cardiomegaly. Bones/joints: Unremarkable. XR/XR chest 1V portable [id number] IMPRESSION: Probable bilateral basilar atelectasis Radiation Dose CTDIVOL = (mGy): DLP = (mGy-cm)
[2021-04-02 23:36] VITALS: BP 138/88; PULSE 86; RESP 18; TEMP 36.6; O2SAT 95; BMI 51.0
[2021-04-03 00:19] LABS: Basophils % 0.5 %; Eosinophils # 0.2 10^3/uL (0.0-0.8); Eosinophils % 2.1 %; Hematocrit 45.4 % (37.0-47.0); Lymphocytes # 2.9 10^3/uL (0.8-4.8); Lymphocytes % 33.3 %; Mean Corpuscular Hemoglobin 29.2 pg (28.0-34.0); Mean Corpuscular Volume 88.5 fl (81-99); Mean Platelet Volume 13.2 fL (7.4-10.4); Monocytes # 0.6 10^3/uL (0.2-0.9); Monocytes % 7.1 %; Neutrophils # 4.94 10^3/uL (1.8-7.7); Neutrophils % 56.5 %; Nucleated Red Blood Cells % 0 %; Platelet Count 190 10^3/cmm (130-400); Red Blood Count 5.13 10^6/uL (4.1-5.3); Red Cell Distribution Width 13.2 % (12.1-15.1); White Blood Count 8.7 10^3/uL (4.0-10.0)
--- NOTE | 2021-04-03 00:19 | W.ED.CHESTPA ---
HPI - Chest Pain General: Chief Complaint: Chest Pain Stated Complaint: Chest Pains For 20 Hours Time Seen by Provider: 04/02/21 23:26 Source: patient Mode of arrival: ambulatory Limitations: no limitations History of Present Illness: HPI narrative: 40-year-old female states she been having constant chest pain over the last 20 hours. States been a pressure type pain in the left side of her chest. She denies any nausea or shortness of breath. States been worsening with exertion. She denies any history of heart issues. She does have a history of high blood pressure, high cholesterol and diabetes. Denies any vomiting or diarrhea. Associated symptoms: Deny abdominal pain, dyspnea, fever(s), nausea or vomiting Review of Systems Const: Denies: fever(s), chills, body aches or change in appetite Eyes: Denies: blurry vision or eye discomfort ENMT: Denies: throat pain or dental pain Card: Reports: chest pain Resp: Denies: dyspnea GI: Denies: abdominal pain, nausea, vomiting or diarrhea : Denies: dysuria Musc: Denies: neck pain or back pain Skin/Breast: Denies: rash Neuro: Denies: headache(s) Psych: Denies: depression Ney/Lymph: Denies: easy bruising All/Imm: Denies: urticaria PFSH ED PFSH: Medical History DM2 (diabetes mellitus, type 2) Dyslipidemia History of abdominal hernia X2 Hypothyroidism Low back pain with sciatica Major depressive disorder without psychotic features Renal stones Right ureteral calculus Surgical History H/O: hysterectomy Hx of appendectomy Hx of knee surgery right Hx of laparoscopic gastric banding Family History Mother CAD (coronary artery disease) Stroke Father CAD (coronary artery disease) Other Cancer Diabetes Hypertension Social History Smoking and tobacco status: current every day smoker cigarettes Packs smoked per day: 1 Years cigarettes smoked: 28 Alcohol intake: never Marital status: Legally Current occupational status: disabled History of recent travel: No Physical Exam Const: COMMON NORMALS: no acute distress, patient oriented x3 and healthy appearing HENMT: COMMON NORMALS: normocephalic and atraumatic HEAD & SCALP: normocephalic and atraumatic Eye: COMMON NORMALS: Equal, round and reactive pupils present and EOMs intact bilaterally PUPIL: Yes Equal, round and reactive pupils present Neck/C-Spine: COMMON NORMALS: full ROM and supple Chest: COMMONS NORMALS: normal inspection of the chest and normal palpation of entire chest wall Resp: COMMON NORMALS: normal respiratory effort, No retractions, No use of accessory muscles and clear to auscultation bilaterally AUSCULTATION: clear to auscultation bilaterally Cardio: COMMON NORMALS: regular rate, regular rhythm and No murmurs present (Cardio) RATE: regular rate RHYTHM: regular rhythm GI: COMMON NORMALS: Normal to inspection, nondistended, normoactive bowel sounds present, Soft to palpation, non-tender and no masses PALPATION: Yes Soft to palpation Extremity: COMMON NORMALS: normal to inspection and full ROM Neuro: COMMON NORMALS: patient oriented x3, moves all extremities and no focal motor deficits Psych: COMMON NORMALS: mental status grossly normal, Normal thought process present and cooperative THOUGHT PROCESS: Normal thought process present Skin: COMMON NORMALS: no rashes or lesions noted and no wounds GENERAL SKIN EXAM: no rashes or lesions noted Course Vital Signs: Vital signs: Vital Signs Temperature 97.8 F 04/02/21 23:36 Pulse Rate 86 04/02/21 23:36 Respiratory Rate 18 04/02/21 23:36 Blood Pressure 138/88 04/02/21 23:36 Pulse Oximetry 95 04/02/21 23:36 MDM - Chest Pain MDM Narrative: Medical decision making narrative: Patient presents with chest pain that is atypical in nature. Its been constant both of her troponins here are negative. Her pain is resolved I feel she is stable for discharge at this point. I informed her she needs to follow-up with PCP and have an outpatient stress test. I states if her pain returns she is return to the ER immediately. She understands agrees to plan. Lab Data: Labs: Lab Results 04/03/21 04/03/21 04/03/21 00:08 00:08 00:08 WBC 8.7 10^3/uL 10^3/ uL (4.0-10.0) RBC 5.13 10^6/uL 10^6 /uL (4.1-5.3) Hgb 15.0 g/dL g/dL (11.5-15.3) Hct 45.4 % % (37.0-47.0) MCV 88.5 fl fl (81-99) MCH 29.2 pg pg (28.0-34.0) MCHC 33.0 g/dL g/dL (30.0-36.0) RDW 13.2 % % (12.1-15.1) Plt Count 190 10^3/cmm 10^3 /cmm (130-400) MPV 13.2 fL H fL (7.4-10.4) Neut % (Auto) 56.5 % % Lymph % (Auto) 33.3 % % [place] % (Auto) 7.1 % % Eos % (Auto) 2.1 % % Baso % (Auto) 0.5 % % Neut # (Auto) 4.94 10^3/uL 10^3 /uL (1.8-7.7) Lymph # (Auto) 2.9 10^3/uL 10^3/ uL (0.8-4.8) [place] # (Auto) 0.6 10^3/uL 10^3/ uL (0.2-0.9) Eos # (Auto) 0.2 10^3/uL 10^3/ uL (0.0-0.8) Baso # (Auto) 0.0 10^3/uL 10^3/ uL (0.0-0.1) Nucleated RBC % (a uto) 0 % % Nucleated RBCs # 0.0 /100WBC /100W BC Sodium 138 mmol/L mmol/L (136-145) Potassium 4.3 mmol/L mmol/L (3.5-5.1) Chloride 102 mmol/L mmol/L (98-107) Carbon Dioxide 25 mmol/L mmol/L (22-29) Anion Gap 15.3 (5-19) BUN 8 mg/dL mg/dL (6-20) Creatinine 0.6 mg/dL mg/dL (0.5-0.9) GFR Calculation 109.6 mL/min mL/m in (90-130) Glucose 162 mg/dL H mg/dL (65-115) Calculated Osmolal ity 288 mOsm/kg mOsm/ kg (285-295) Calcium 9.3 mg/dL mg/dL (8.5-10.5) Total Bilirubin 0.2 mg/dL mg/dL (0.15-1.2) AST 18 U/L U/L (0-32) ALT 18 U/L U/L (0-33) Alkaline Phosphata se 66 IU/L IU/L (35-105) Troponin T Baselin e 6 ng/L ng/L (0-10) Troponin T 120 Min [place] Troponin T Total Protein 6.8 g/dL g/dL (6.6-8.7) Albumin 4.2 g/dL g/dL (3.5-5.2) Globulin 2.6 g/dL g/dL (1.3-4.6) 04/03/21 02:05 WBC RBC Hgb Hct MCV MCH MCHC RDW Plt Count MPV Neut % (Auto) Lymph % (Auto) [place] % (Auto) Eos % (Auto) Baso % (Auto) Neut # (Auto) Lymph # (Auto) [place] # (Auto) Eos # (Auto) Baso # (Auto) Nucleated RBC % (a uto) Nucleated RBCs # Sodium Potassium Chloride Carbon Dioxide Anion Gap BUN Creatinine GFR Calculation Glucose Calculated Osmolal ity Calcium Total Bilirubin AST ALT Alkaline Phosphata se Troponin T Baselin e Troponin T 120 Min [place] 6.00 ng/L ng/L (0-10) Delta Troponin T 0 ABS# ABS# (0-10) Total Protein Albumin Globulin Imaging Data^: CXR: Attestation: I personally reviewed and interpreted this imaging study as follows: Radiologist's impression: [address] [place] [id number] XRay Report Signed Patient: Julissa Avalos Unit #: [id number] : 1980 Age/Sex: 40 / F ADM Date: 04/02/21 Loc: ER Room/Bed: Attending Dr: Ordering Provider/Ordering MD: Ajay Coffman MD Date of Service: 04/02/21 Procedure(s): XR chest 1V portable [id number] Accession Number(s): [id number] Report Number: [id number] PROCEDURE INFORMATION: Exam: XR Chest Exam date and time: 04/02/2021 11:25 PM Age: 40 years old Clinical indication: Pain; Chest pressure; Additional info: Cp TECHNIQUE: Imaging protocol: XR of the chest. Views: 1 view. COMPARISON: CR Chest 1 [place] [id number] 02/03/2019 1:10 AM FINDINGS: Lungs: Strandy opacities are seen in lower hemithoraces bilaterally likely representing atelectasis. Pleural spaces: Unremarkable. No pleural effusion. No pneumothorax. Heart/Mediastinum: Unremarkable. No cardiomegaly. Bones/joints: Unremarkable. XR/XR chest 1V portable [id number] IMPRESSION: Probable bilateral basilar atelectasis Radiation Dose CTDIVOL = (mGy): DLP = (mGy-cm) Dictated By: Hema Gore MD Signed By: Hema Gore MD Signed Date/Time: 04/03/216 DD/ EKG Data^: EKG 1: Attestation: I personally reviewed and interpreted this EKG as follows: EKG interpretation date: 04/02/21 EKG interpretation time: 23:34 Interpretation: nsr hr [address] or t wave abnormalities qrs 97 qtc 394 EKG 2: Attestation: I personally reviewed and interpreted this EKG as follows: EKG interpretation date: 04/03/21 EKG interpretation time: 02:15 Interpretation: nsr hr [address] or t wave abnormalities qrs 86 qtc 389 Discharge Plan Discharge Patient Disposition: Home Clinical Impression: Chest pain Qualifiers: Chest pain type: unspecified Qualified Code(s): R07.9 - Chest pain, unspecified Condition: Stable Prescriptions: No Action doxazosin 2 mg tablet 2 mg PO DAILY@1999 RF: 0 propranolol 10 mg tablet 10 mg PO BID@ RF: 0 levothyroxine 88 mcg capsule 88 mcg PO DAILY@899 RF: 0 eszopiclone [Lunesta] 3 mg tablet PO RF: 0 hydrocodone-acetaminophen 10-325 mg tablet 1 tab PO Q4H PRNRF: 0 metformin 1,000 mg tablet 1,000 mg PO BID@ RF: 0 cetirizine 10 mg Tablet 10 mg PO DAILY@00 RF: 0 gabapentin 300 mg Capsule 300 mg PO TID@09,12,20 RF: 0 glipizide 5 mg Tablet 5 mg PO DAILY@0900 RF: 0 hydrochlorothiazide 12.5 mg Tablet 12.5 mg PO DAILY@0900 RF: 0 ondansetron 4 mg tablet,disintegrating 4 mg PO Q6H PRN (Reason: nausea and vomiting) Qty: 14 RF: 0 Discharge Orders: Discharge ED (Routine); Ordered 04/03/21 Ordered By: Ajay Coffman Discharge Diet: Advance as tolerated Discharge Activity: Resume usual activity Patient Instructions: Chest Pain (ED) Coding Level of Care Code ED Customer Support Technician for Alcides Fwd Exam Comprehensive
[2021-04-03 00:42] VITALS: BP 138/88; PULSE 94; RESP 20; O2SAT 97
[2021-04-03] MEDS: nitroglycerin 0.4 mg sublingual Tablet SUBLINGUAL ×2 (00:45→01:27)
[2021-04-03 00:47] LABS: Alanine Aminotransferase 18 U/L (0-33); Albumin Level 4.2 g/dL (3.5-5.2); Alkaline Phosphatase 66 IU/L (35-105); Anion Gap 15.3 (5-19); Aspartate Amino Transferase 18 U/L (0-32); Blood Urea Nitrogen 8 mg/dL (6-20); Calcium 9.3 mg/dL (8.5-10.5); Carbon Dioxide 25 mmol/L (22-29); Chloride 102 mmol/L (98-107); Globulin 2.6 g/dL (1.3-4.6); Glomerular Filtration Rate 109.6 mL/min (90-130); Glucose 162 mg/dL (65-115); Osmolality Calculated 288 mOsm/kg (285-295); Potassium 4.3 mmol/L (3.5-5.1); Sodium 138 mmol/L (136-145); Total Bilirubin 0.2 mg/dL (0.15-1.2); Total Protein 6.8 g/dL (6.6-8.7)
[2021-04-03 00:48] LABS: Troponin(5th) Baseline 6 ng/L (0-10)
--- NOTE | 2021-04-03 01:25 | ECG_ITS ---
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 Measurements Intervals [place] Rate: 70 P: 60 OK: 206 QRS: -68 QRSD: 86 T: 59 QT: 368 QTc: 399 Interpretive Statements SINUS RHYTHM LOW QRS VOLTAGE IN PRECORDIAL LEADS [QRS DEFLECTION < 1.0 mV IN CHEST LEADS] POSSIBLE RIGHT VENTRICULAR CONDUCTION DELAY [RSR (QR) IN V1/V2] LEFT ANTERIOR FASCICULAR BLOCK [QRS AXIS <= -45, QR IN I, RS IN II] Compared to ECG 02/03/2019 00:21:35 Low QRS voltage now present Left anterior fascicular block now present Electronically Signed On 04-03-2021 21:26:56 CDT by Nancy Bowser M.D. [email or web address]
[2021-04-03 01:42] VITALS: BP 152/91
[2021-04-03 02:42] VITALS: BP 122/84
[2021-04-03 02:57] LABS: Troponin 5 2HR Delta 0 ABS# (0-10)
[2021-04-03 03:43] VITALS: BP 134/88; PULSE 84; RESP 20; O2SAT 97
== END 2021-04-03 03:30 | disposition home or self-care (01) ==
PROVIDERS: Emergency Provider Emergency Medicine
DX: R07.9 Chest pain, unspecified (principal); Z79.84 Long term (current) use of oral hypoglycemic drugs; E11.9 Type 2 diabetes mellitus without complications; E78.5 Hyperlipidemia, unspecified; F17.210 Nicotine dependence, cigarettes, uncomplicated
CPT/HCPCS: 71045; 80053; 84484; 85025; 93005; 99283

== ENCOUNTER 2021-05-09 11:17 | Outpatient (CLI) | payer MEDICAID, SELFPAY ==
--- NOTE | 2021-05-09 | USCV_ITS ---
Dobutamine Stress Echo Julissa Avalos Age: 40 Gender: F : 1980 Exam Date: 05/09/2021 13:06 Ordering Phys: Annamarie Laboy MD Technologist: Pippa Watters Exam Location: [facility] [place] Indication: CHEST PAIN Rhythm: Sinus Patient History: HTN, DLD Cardiac Medications: PROPANOLOL Medications in past 24 hours: NONE Contrast: Optison Total Dose (mL): 3 Stress Results Protocol: Pharmacologic Peak Dose (???g/kg/min): 60 Duration (min:sec): 17:48 Atropine:(mg) 0.5 Target HR: 151 Double Product: 62075 Resting HR: 62 Resting BP: 132 / 86 Peak HR: 155 Peak BP: 153 / 86 Max Predicted HR: 178 87 % Max Predicted HR Stress Summary: The hemodynamic response to stress was normal. BP Response: Normal Reason for Termination: The patients target heart rate was achieved Cardiac Symptoms: Short of Breath ECG Analysis Resting EKG: Stress EKG: Arrhythmia: MEASUREMENTS (Male/Female) Normal Values FINDINGS Baseline: Normal left ventricle ejection fraction estimated EF of 60%. No wall motion abnormality. At low mid and peak dose of dobutamine no significant wall motion abnormality noted, augmentation of cavity was good. Left ventricle ejection fraction improved and hyperdynamic Post dobutamine recovery: No new wall motion abnormality noted. CONCLUSIONS Echocardiographic portion of the dobutamine stress echo was not suggestive of ischemia. EKG segment will be documented separately. Isabela Garcia MD (Electronically Signed) Final Date: 10 May 2021 10:42 S
[2021-05-09 12:10] VITALS: BMI 49.2
--- NOTE | 2021-05-09 12:42 | ECG_ITS ---
[facility] Test Date: 2021-05-09 Pat Name: Julissa Avalos Department: Room: Gender: Female Grab Operator: : 1980 Requested By: Annamarie Roberts Order Number: [id number] Andrew MD: EUGENIO CRAWFORD Interpretive Statements NAME OF STUDY: DOBUTAMINE STRESS ECHOCARDIOGRAM INDICATION: Chest Pain EXERCISE DATA: The patient was exercised by dobutamine protocol. Baseline heart rate was 72 beats per minute. Baseline blood pressure was 128/88 millimeters of mercury. Target heart rate was 178 beats per minute. Maximum heart rate achieved was 158, which was 88 % of the target heart rate. Maximum blood pressure was 158/97 millimeters of mercury. The reason for ending the test was completion of the protocol. The patient did not report any symptoms. ELECTROCARDIOGRAM: BASELINE: Showed sinus rhythm, normal axis, incomplete right bundle branch bloc, no significant ST-T changes at the baseline noted. EXERCISE: At the peak exercise level, no significant ST-T changes suggestive of ischemia noted. RECOVERY: During the recovery period, heart rate dropped appropriately. No significant ST-T changes in the recovery suggestive of ischemia noted. CONCLUSION: 1. Dobutamine infusion unremarkable 2. Heart rate response was appropriate. 3. Blood pressure response was appropriate. 4. Symptoms not suggestive of ischemia. 5. Electrocardiogram portion of the stress test was not suggestive of ischemia. 6. Nuclear scan will be documented separately. Electronically Signed On 05-10-2021 17:10:10 MUD ANALYSIS WELL LOGGING CAPTAIN by EUGENIO CRAWFORD [id number]
[2021-05-09] MEDS: sodium chloride 0.9% 250 ML 75 ML IV (13:06)
[2021-05-09] MEDS: DOBUTamine drip 500 MG/250 ML PREMIX 40 MG IV (13:13)
[2021-05-09] MEDS: atropine 0.1 mg/mL Syr 10 mL 0.5 MG IVP (13:26)
[2021-05-09] MEDS: metoprolol tartrate 1 mg/1 mL SDV 5 mL 5 MG IVP (13:38)
[2021-05-09] MEDS: perflutren protein-a microsphr 0.22 mg/mL SDV 3 mL IV (13:56)
--- NOTE | 2021-05-09 14:09 | SUR.PHASEII ---
DOBUTAMINE INFUSIONS Unable to document on the MAR for Dobutrex infusion. Protocol followed for CDL infusion of Dobutrex at 10 mcg/kg/min every three minutes. Patient received a total of 60 mcg/kg/min on the protocol to achieve desired HR.
[2021-05-09 14:12] VITALS: BP 115/75; PULSE 99
== END 2021-05-09 11:18 | disposition home or self-care (01) ==
LOC: CDL 11:20
PROVIDERS: PCP Family Medicine; Visit Provider Family Medicine
DX: R07.9 Chest pain, unspecified (principal)
CPT/HCPCS: 93017; 93350; 93352; J0461; J1250; J3490; J7050; Q9956

== ENCOUNTER 2021-05-31 12:25 | Outpatient (CLI) | payer MEDICAID, SELFPAY ==
--- NOTE | 2021-05-31 12:00 | XR_ITS ---
WS: [id number] XR KUB [id number] REASON FOR EXAM: RIGHT FLANK PAIN FINDINGS: Gastric lap band device remains in place. No urinary tract calculi are identified. No free air or retroperitoneal air. Bowel gas pattern is unremarkable. No mass identified. XR/XR KUB [id number] IMPRESSION: No urinary tract calculi. No other significant abdominal abnormality.
== END 2021-05-31 12:26 | disposition home or self-care (01) ==
LOC: RAD 12:27
PROVIDERS: PCP Family Medicine; Visit Provider Urology
DX: R10.9 Unspecified abdominal pain (principal); N20.0 Calculus of kidney
CPT/HCPCS: 74018; 81003

== ENCOUNTER → 2021-07-06 11:21 | Outpatient (BNVA) | payer MEDICAID, SELFPAY | PROVIDERS: PCP Family Medicine; Visit Provider Nurse Practitioner | DX: F43.12 Post-traumatic stress disorder, chronic (principal); F31.81 Bipolar II disorder; F17.210 Nicotine dependence, cigarettes, uncomplicated | CPT/HCPCS: 99215 ==

== ENCOUNTER → 2021-08-17 08:23 | Outpatient (BNVA) | payer MEDICAID, SELFPAY | PROVIDERS: PCP Family Medicine; Visit Provider Nurse Practitioner | DX: F43.12 Post-traumatic stress disorder, chronic (principal); F31.81 Bipolar II disorder; F17.210 Nicotine dependence, cigarettes, uncomplicated | CPT/HCPCS: 99214 ==

== ENCOUNTER → 2021-09-28 09:10 | Outpatient (BNVA) | payer MEDICAID, SELFPAY | PROVIDERS: PCP Family Medicine; Visit Provider Nurse Practitioner | DX: F43.12 Post-traumatic stress disorder, chronic (principal); F31.81 Bipolar II disorder; F17.210 Nicotine dependence, cigarettes, uncomplicated | CPT/HCPCS: 99214 ==

== ENCOUNTER 2021-11-21 05:26 | Emergency (ER) | payer MEDICAID, SELFPAY ==
[2021-11-21 05:44] VITALS: BP 102/65; PULSE 74; RESP 16; TEMP 36.8; O2SAT 95; BMI 49.4
--- NOTE | 2021-11-21 07:05 | ED_ITS ---
HPI - Extremity Problem General: Chief complaint: Extremity Injury, Lower Stated complaint: Leg Pains Time Seen by Provider: 11/21/21 06:06 Source: patient Mode of arrival: ambulatory Limitations: no limitations History of Present Illness: 40-year-old female presents emergency room with complaint of bilateral lower extremity pain. She denies any swelling no shortness of breath. She complains of pain. Over the low back radiating bilaterally into lower extremities down to the level of her feet. She has no previous injury no previous surgeries. MD Complaint: extremity pain Onset (ago): minute(s) Pain Consistency: constant Location: lower extremity (Bilateral) Quality: burning Radiation: distal Relieving factors: other (Supine) Exacerbating factors: weight bearing and walking Associated symptoms: Deny arthralgias, chest pain, fever(s), myalgias, rash or short of breath Review of Systems Const: Denies: fever(s) or chills ENMT: Denies: throat pain, ear or mastoid pain, nasal discharge or nasal congestion Card: Denies: chest pain Resp: Denies: dyspnea, productive cough or non-productive cough GI: Denies: abdominal pain, nausea, vomiting, hematemesis, coffee ground emesis, diarrhea, constipation, bloating, hematochezia or melena : Denies: flank pain, difficulty voiding, dysuria, urinary frequency or urinary urgency Skin/Breast: Denies: rash PFSH ED PFSH: Medical History Bipolar 2 disorder DM2 (diabetes mellitus, type 2) Dyslipidemia History of abdominal hernia X2 Hypothyroidism Low back pain with sciatica Major depressive disorder without psychotic features Nicotine dependence, cigarettes, uncomplicated Post-traumatic stress disorder, chronic Psychiatric care Renal stones Right ureteral calculus Urgency incontinence Surgical History H/O: hysterectomy Hx of appendectomy Hx of knee surgery right Hx of laparoscopic gastric banding Family History Mother CAD (coronary artery disease) Stroke Father CAD (coronary artery disease) Other Cancer Diabetes Hypertension Social History Alcohol intake: never Marital status: Legally Current occupational status: disabled History of recent travel: No Physical Exam Const: COMMON NORMALS: no acute distress GENERAL APPEARANCE: cooperative and comfortable ORIENTATION/CONSCIOUSNESS: Yes awake, Yes oriented to person, Yes oriented to place and Yes oriented to time HENMT: COMMON NORMALS: normocephalic, atraumatic and hearing grossly normal bilaterally HEAD & SCALP: normocephalic and atraumatic Neck/C-Spine: COMMON NORMALS: no JVD Resp: COMMON NORMALS: normal respiratory effort, No retractions, No use of accessory muscles and clear to auscultation bilaterally AUSCULTATION: clear to auscultation bilaterally Cardio: COMMON NORMALS: no JVD, regular rate, regular rhythm and No murmurs present (Cardio) RATE: regular rate RHYTHM: regular rhythm Back/Pelvis: OTHER: Straight leg raising bilaterally elicits pain down the lateral portion of the mid thigh down to the great toe. Dorsum plantar flex strength is 5 of 5 sensation normal, unable to elicit deep tendon reflexes in lower extremities here is a scar on the right knee from a total knee arthroplasty. Extremity: COMMON NORMALS: normal to inspection, capillary refill normal, no clubbing, cyanosis or edema, no calf tenderness and no pedal edema Neuro: SENSORIUM/ORIENTATION: Yes oriented to person, Yes oriented to place and Yes oriented to time Skin: COMMON NORMALS: no rashes or lesions noted GENERAL SKIN EXAM: no rashes or lesions noted Course Vital Signs: Vital signs: Vital Signs Temperature 98.2 F 11/21/21 05:44 Pulse Rate 74 11/21/21 05:44 Respiratory Rate 16 11/21/21 05:44 Blood Pressure 102/65 11/21/21 05:44 Pulse Oximetry 95 11/21/21 05:44 MDM - Extremity (Nontraumatic) Medical Decision Making Patient lists allergies to NSAIDs she has hydrocodone at home she is already taking baclofen. Put her on a prednisone taper gave her dexamethasone 10 mg IM started on a p.o. taper and follow-up with her primary care doctor to evaluate further symptoms persist. Medical Records I reviewed the patient's medical records. Lab Data I reviewed the patient's lab results. Discharge Plan Discharge Patient Disposition: Home Clinical Impression: Lumbar radiculopathy Condition: Stable Prescriptions: New prednisone 20 mg tablet 20 mg PO TID Qty: 15 0RF Rx Instructions: 1 p.o. 3 times daily x3 days, 1 p.o. twice daily x2 days, 1 p.o. daily x2 days No Action Lantus U-100 Insulin 100 unit/mL solution 8 unit SUBCUT TID 0RF insulin aspart U-100 [Novolog Flexpen U-100 Insulin] 100 unit/mL (3 mL) insulin pen 10 unit SUBCUT .at bed 0RF trazodone 100 mg tablet 300 mg PO .HS Qty: 90 2RF Rx Instructions: take 2 to 3 tabs at bedtime as needed for sleep. prazosin 2 mg capsule 4 mg PO .HS Qty: 60 1RF citalopram [Celexa] 10 mg tablet 10 mg PO DAILY Qty: 30 2RF Vraylar 3 mg capsule 3 mg PO .HS Qty: 30 2RF propranolol 10 mg tablet 10 mg PO BID@09,20 0RF levothyroxine 88 mcg capsule 88 mcg PO DAILY@0900 0RF hydrocodone-acetaminophen 10-325 mg tablet 1 tab PO Q4H PRN0RF metformin 1,000 mg tablet 1,000 mg PO BID@09,20 0RF lisinopril 20 mg tablet 20 mg PO DAILY 0RF oxybutynin chloride 10 mg tablet extended release 24hr 10 mg PO DAILY Qty: 30 12RF baclofen 20 mg tablet 40 mg PO BID 0RF cetirizine 10 mg Tablet 10 mg PO DAILY@0900 0RF gabapentin 300 mg Capsule 300 mg PO TID@09,12,20 0RF Discharge Orders: Discharge ED (Routine); Ordered 11/21/21 Ordered By: Tong Owens Referrals: Annamarie Laboy MD [Primary Care Provider] - Discharge Diet: Usual diet Discharge Activity: Increase activity as tolerated Patient Instructions: Opioid Safety Activity Restrictions/Additional Instructions: Start steroid taper p.o. this evening. Follow-up with your primary care doctor within the next week if symptoms are not improving. Coding Level of Care Code ED [facility]
== END 2021-11-21 07:08 | disposition home or self-care (01) ==
PROVIDERS: Emergency Provider Family Medicine; PCP Family Medicine
DX: M54.16 Radiculopathy, lumbar region (principal)
CPT/HCPCS: 99283

== ENCOUNTER → 2021-11-29 14:14 | Outpatient (BNVA) | payer MEDICAID, SELFPAY | PROVIDERS: PCP Family Medicine; Visit Provider Urology | DX: N20.0 Calculus of kidney (principal); N30.00 Acute cystitis without hematuria; N39.41 Urge incontinence; R33.9 Retention of urine, unspecified | CPT/HCPCS: 51798; 81003; 87077; 87086; 87186; 99213 ==

== ENCOUNTER 2022-02-10 13:14 | Emergency (ER) | payer MEDICAID, SELFPAY ==
[2022-02-10 13:26] VITALS: BP 143/94; PULSE 68; RESP 16; TEMP 36.7; O2SAT 97; BMI 46.8
[2022-02-10 13:33] VITALS: BP 143/94; PULSE 68; RESP 16; TEMP 36.7; O2SAT 97
--- NOTE | 2022-02-10 14:04 | ED_ITS ---
HPI - Headache General: Chief Complaint: Headache Stated Complaint: Extreme Headache Time Seen by Provider: 02/10/22 13:39 Source: patient Mode of arrival: ambulatory Limitations: no limitations History of Present Illness: 41-year-old female presents to the ER today for a headache that began yesterday morning. Patient reports this headache is similar to her typical migraines however in a different location. Patient reports this is behind her ears and in the back of her head. Patient denies any recent illness or anything to have triggered this migraine. She reports she used to have medication at home however they stopped it because it was not effective. Patient did try taking home medication including Tylenol, ibuprofen, and her hydrocodone at home. Patient reports nothing is touching the pain. She reports nausea and vomiting associated. Reports light sensitivity but denies any aura. Patient denies any dizziness. Patient is still taking in fluids okay. Patient reports she did not sleep well due to the headache last night despite taking her trazodone at bedtime. Review of Systems General: Reports: 10 or more systems reviewed and unremarkable except in HPI and below PFSH ED PFSH: Medical History Bipolar 2 disorder DM2 (diabetes mellitus, type 2) Dyslipidemia History of abdominal hernia X2 Hypothyroidism Low back pain with sciatica Major depressive disorder without psychotic features Nicotine dependence, cigarettes, uncomplicated Post-traumatic stress disorder, chronic Psychiatric care Renal stones Right ureteral calculus Urgency incontinence Surgical History H/O: hysterectomy Hx of appendectomy Hx of knee surgery right Hx of laparoscopic gastric banding Family History Mother CAD (coronary artery disease) Stroke Father CAD (coronary artery disease) Other Cancer Diabetes Hypertension Social History Smoking and tobacco status: current every day smoker cigarettes Packs smoked per day: 1 Years cigarettes smoked: 28 Alcohol intake: never Household members: family Housing: House Marital status: Legally Current occupational status: employed History of recent travel: No Physical Exam Const: COMMON NORMALS: patient oriented x3, no limitations and alert; apparent distress (appears uncomfortable) and negative for average body habitus (obese) Eye: COMMON NORMALS: Equal, round and reactive pupils present and conjunctivae normal CONJUNCTIVA: Yes conjunctivae normal PUPIL: Yes Equal, round and reactive pupils present OTHER: L TM slightly injected with fluid behind TM, R TM and canal WNL Neck/C-Spine: COMMON NORMALS: full ROM and no lymphadenopathy Resp: COMMON NORMALS: normal respiratory effort and No retractions Cardio: COMMON NORMALS: regular rate and regular rhythm RATE: regular rate RHYTHM: regular rhythm GI: COMMON NORMALS: Normal to inspection, nondistended, normoactive bowel sounds present, Soft to palpation and non-tender PALPATION: Yes Soft to palpation Back/Pelvis: COMMON NORMALS: thoraco-lumbar ROM normal Extremity: COMMON NORMALS: normal to inspection and full ROM Neuro: COMMON NORMALS: patient oriented x3 SENSORIUM/ORIENTATION: Yes alert SPEECH: speech normal GAIT: Yes Normal gait present Psych: COMMON NORMALS: mental status grossly normal, Normal thought process present and cooperative THOUGHT PROCESS: Normal thought process present Skin: COMMON NORMALS: no rashes or lesions noted and no wounds GENERAL SKIN EXAM: no rashes or lesions noted Course ED course: 41-year-old female presents to the ER today for a headache that has been present for more than 24 hours now. Patient reports this headache is not worse than normal however is in a different location than normal. Patient reports his headache is located between her ears and the back of her head. She has tried taking her home hydrocodone and [id number] meds with no improvement. Patient reports nausea and vomiting, sensitivity to light. Patient reports she was on migraine medication however has been off for quite some time. We will start fluids and give patient Benadryl and Reglan at this time. Reevaluation(s): Reevaluation #1: Patient reports nausea has improved. She reports headache has not changed much. Patient is located in [facility] flow where there is a lot going on and bright lights at this time. I feel patient would be better if she went home and relaxed in a dark room. I discussed with patient this and she feels that would also be beneficial to her. Time: 15:59 Vital Signs: Vital signs: Vital Signs Temperature 98.0 F 02/10/22 13:33 Pulse Rate 65 02/10/22 15:45 Respiratory Rate 16 02/10/22 13:33 Blood Pressure 150/91 08/26/22 15:45 Pulse Oximetry 94 08/26/22 15:45 Oxygen Delivery Me thod 02/10/22 15:45 MDM - Headache Medical Decision Making 41-year-old female presents to the ER today for a headache that has been present for more than 24 hours now. Patient reports this headache is not worse than normal however is in a different location than normal. Patient reports his headache is located between her ears and the back of her head. She has tried taking her home hydrocodone and [id number] meds with no improvement. Patient reports nausea and vomiting, sensitivity to light. Patient reports she was on migraine medication however has been off for quite some time. We will start fluids and give patient Benadryl and Reglan at this time. His headache does not appear to be anything more than her normal headaches, just a different location. Patient was given medications and here today and reports improvement in the nausea while here. Patient is located in [place] flow and there is a lot going on while she is here including bright lights and constant sound. I feel patient would see the most improvement if she was able to go home in a controlled setting where it is dark and quiet. I will send patient home with a prescription for Reglan. Patient should take 50 mg of Benadryl when she gets home. Patient was also given 125 mg of Solu-Medrol while here. Recommended patient continue [id number] medications for symptomatic relief. Sleep recommended. If no improvement in 48 hours follow-up with PCP. Return to the ER with any new or worsening symptoms. Patient verbalized understanding and was in agreement with the treatment plan. Critical Care Time Critical Care Time: Critical Care Time: No Discharge Plan Discharge Patient Disposition: Home Clinical Impression: Migraine headache Qualifiers: Migraine type: without aura Intractability: intractable Condition: Stable Prescriptions: New promethazine 12.5 mg tablet 6.25 mg PO TID PRN (Reason: nausea and vomiting) Qty: 12 0RF Rx Instructions: 3 doses during day; last dose no later than 4 hr before bedtime No Action cyclobenzaprine 5 mg tablet 5 mg PO TID PRN Lantus U-100 Insulin 100 unit/mL solution 8 unit SUBCUT TID insulin aspart U-100 [Novolog Flexpen U-100 Insulin] 100 unit/mL (3 mL) insulin pen 10 unit SUBCUT .at bed propranolol 10 mg tablet 10 mg PO BID@09,20 hydrocodone-acetaminophen 10-325 mg tablet 1 tab PO Q4H PRN metformin 1,000 mg tablet 1,000 mg PO BID@09,20 lisinopril 20 mg tablet 20 mg PO DAILY oxybutynin chloride 10 mg tablet extended release 24hr 10 mg PO DAILY Qty: 30 12RF tizanidine 4 mg capsule 4 mg PO TID PRN Vraylar 3 mg capsule 3 mg PO .HS Qty: 30 2RF citalopram [Celexa] 10 mg tablet 10 mg PO DAILY Qty: 30 2RF prazosin 2 mg capsule 4 mg PO .HS Qty: 60 1RF trazodone 100 mg tablet 300 mg PO .HS Qty: 90 2RF Rx Instructions: take 2 to 3 tabs at bedtime as needed for sleep. cetirizine 10 mg Tablet 10 mg PO DAILY@0900 gabapentin 300 mg Capsule 300 mg PO TID@09,12,20 Discharge Orders: Discharge ED (Routine); Ordered 02/10/22 Ordered By: Brianne Buckner Referrals: Annamarie Laboy MD [Primary Care Provider] - Discharge Diet: Usual diet Discharge Activity: Increase activity as tolerated Patient Instructions: Opioid Safety Activity Restrictions/Additional Instructions: Take Benadryl as discussed. Take promethazine as prescribed. Push fluids. Rest recommended. Follow-up with PCP in 48 hours if no improvement. Return to the ER with any new or worsening symptoms. Coding Level of Care Code ED [facility] Exam Comprehensive
[2022-02-10] MEDS: sodium chloride 0.9% 1,000 ML 999 ML IV (15:14)
[2022-02-10] MEDS: metoclopramide 5 mg/mL SDV 2 mL 10 MG IVP (15:15)
[2022-02-10] MEDS: diphenhydrAMINE 50 mg/mL SDV 1mL 25 MG IVP (15:17)
[2022-02-10 15:45] VITALS: BP 150/91; PULSE 65; O2SAT 94
== END 2022-02-10 16:10 | disposition home or self-care (01) ==
PROVIDERS: Emergency Provider Physician Assistant; PCP Family Medicine
DX: G43.909 Migraine, unspecified, not intractable, without status migrainosus (principal); Z79.84 Long term (current) use of oral hypoglycemic drugs; Z79.4 Long term (current) use of insulin; E11.9 Type 2 diabetes mellitus without complications; E78.5 Hyperlipidemia, unspecified; F17.210 Nicotine dependence, cigarettes, uncomplicated
CPT/HCPCS: 96374; 96375; 99284; J1200; J2765; J2930; J7030

== ENCOUNTER → 2022-03-27 09:51 | Outpatient (BNVA) | payer MEDICAID, SELFPAY | PROVIDERS: Visit Provider Family Medicine | DX: E03.9 Hypothyroidism, unspecified (principal); E78.5 Hyperlipidemia, unspecified; E11.9 Type 2 diabetes mellitus without complications; M54.16 Radiculopathy, lumbar region; M51.36 Other intervertebral disc degeneration, lumbar region | CPT/HCPCS: 80053; 80061; 83036; 83721; 84439; 84443; 85025 ==

== ENCOUNTER 2022-04-04 10:25 | Emergency (ER) | payer MEDICAID, SELFPAY ==
[2022-04-04 10:45] VITALS: BP 172/96; PULSE 71; RESP 16; TEMP 36.4; O2SAT 95; BMI 48.2
[2022-04-04 11:40] LABS: Add Urine Microscopic? NO; Charge for UA Resulting for Rev
[2022-04-04 11:44] VITALS: BP 179/123; PULSE 78; RESP 16; O2SAT 95
--- NOTE | 2022-04-04 11:44 | ED_ITS ---
Documented by User: JACK Bailon 04/05/22 09:16 HPI - Abdominal Pain General: Chief Complaint: Abdominal Pain Stated Complaint: Stomach pain Time Seen by Provider: 04/04/22 11:34 History of Present Illness: Patient is a 41-year-old female comes to the ED with abdominal pain. Past medical history of diabetes type 2, hysterectomy, appendectomy and laparoscopic gastric banding surgery. Abdominal pain started approximately 4 days ago. Patient says she was bent over at work for an extended amount of time and then when she got up she felt a sharp pain in the middle of her abdomen. Since then she has been having 10 out of 10 pain with nausea. Pain worsens with any movement of torso. Pain is located around the periumbilical region and extends across the middle of the abdomen bilaterally. Endorses decreased appetite. Denies any episodes of emesis, fevers, chills, bladder or bowel symptoms. Associated Symptoms: Reports nausea and vomiting; Denies chills, constipation, diarrhea, dysuria, fever(s), hematochezia and hematuria Review of Systems Const: Reports: change in appetite (Decreased appetite); Denies: fever(s), chills or fatigue Eyes: Denies: change in vision or eye discomfort ENMT: Denies: throat pain, odynophagia, nasal discharge or nasal congestion Card: Denies: chest pain, palpitations, edema, swelling of feet/ankles, dyspnea on exertion or orthopnea Resp: Denies: dyspnea, productive cough or non-productive cough GI: Reports: abdominal pain, nausea and vomiting; Denies: diarrhea, constipation or hematochezia : Denies: flank pain, dysuria or hematuria Musc: Denies: neck pain, back pain or extremity swelling Skin/Breast: Denies: rash or new lesions Neuro: Denies: headache(s), numbness in extremities or weakness in extremities PFS ED PFSH: Medical History (Updated 04/04/22 @ 14:53 by Leo Escobar MD) Bipolar 2 disorder DM2 (diabetes mellitus, type 2) Dyslipidemia History of abdominal hernia X2 Hypothyroidism Low back pain with sciatica Major depressive disorder without psychotic features Morbid obesity Nicotine dependence, cigarettes, uncomplicated Post-traumatic stress disorder, chronic Psychiatric care Renal stones Right ureteral calculus Urgency incontinence Surgical History H/O: hysterectomy Hx of appendectomy Hx of knee surgery right Hx of laparoscopic gastric banding Family History Mother CAD (coronary artery disease) Stroke Father CAD (coronary artery disease) Other Cancer Diabetes Hypertension Social History Smoking and tobacco status: never smoked Alcohol intake: never Household members: family Housing: House Marital status: Legally Current occupational status: employed History of recent travel: No Female Reproductive History: Spontaneous abortions: No Physical Exam Const: COMMON NORMALS: patient oriented x3 and alert GENERAL APPEARANCE: cooperative HENMT: COMMON NORMALS: normocephalic HEAD & SCALP: normocephalic MOUTH: Normal oral and palatal mucosa present THROAT: posterior oropharynx normal and uvula midline Neck/C-Spine: COMMON NORMALS: supple GENERAL: Yes normal visual inspection Resp: COMMON NORMALS: normal respiratory effort, No retractions, No use of accessory muscles and clear to auscultation bilaterally AUSCULTATION: clear to auscultation bilaterally Cardio: COMMON NORMALS: regular rate, regular rhythm, S1 normal heart sound present, S2 normal heart sound present, No gallops present (Cardio), No clicks present (Cardio), No murmurs present (Cardio) and Peripheral pulses 2+ throughout RATE: regular rate RHYTHM: regular rhythm HEART SOUNDS: S1 normal heart sound present and S2 normal heart sound present PERIPHERAL PULSES: Peripheral pulses 2+ throughout GI: COMMON NORMALS: Normal to inspection, nondistended, normoactive bowel sounds present, Soft to palpation and no masses INSPECTION: Yes central obesity PALPATION: Yes Soft to palpation and Yes Tenderness to palpation present (GI) (Mild generalized tenderness throughout abdomen.) : COMMON NORMALS: Yes no CVA tenderness BLADDER/KIDNEY EXAM: Yes no CVA tenderness Back/Pelvis: COMMON NORMALS: no CVA tenderness Extremity: COMMON NORMALS: normal to inspection Neuro: COMMON NORMALS: patient oriented x3 SENSORIUM/ORIENTATION: Yes alert GAIT: Yes Normal gait present Skin: GENERAL SKIN EXAM: dry skin Course Vital Signs: Vital signs: Vital Signs Temperature 97.6 F 04/04/22 10:45 Pulse Rate 71 04/04/22 14:51 Respiratory Rate 16 04/04/22 14:51 Blood Pressure 166/70 04/04/22 14:51 Pulse Oximetry 98 04/04/22 14:51 Oxygen Delivery Me thod 04/04/22 10:45 MDM - Abdominal Pain Medical Decision Making Patient is a 41-year-old female comes to the ED with abdominal pain. Past medical history of diabetes type 2, hysterectomy, appendectomy and laparoscopic gastric banding surgery. Abdominal pain started approximately 4 days ago. Patient says she was bent over at work for an extended amount of time and then when she got up she felt a sharp pain in the middle of her abdomen. Vitals are stable. Patient appears nontoxic in no acute distress or pain. She has some generalized mild tenderness throughout her abdomen but rest of exam is benign. Labs are unremarkable. CT of the abdomen shows no acute findings. Patient was diagnosed with abdominal pain and was stable for discharge home. Follow-up with PCP within the next 7 to 10 days for reevaluation. Patient understood and agreed with plan. Lab Data I reviewed the patient's lab results. : 04/04/22 12:30 04/04/22 12:30 Labs/Radiology: Radiology Impressions Abdomen/Pelvis CT 04/04/22 12:33 IMPRESSION: 1. Tiny LEFT proximal ureteral calculus measuring 2 mm unchanged since October 1. No evidence of obstruction. 2. No obstructing RIGHT renal or ureteral calculi. 3. Prior hysterectomy. 4. Prior laparoscopic gastric banding. 5. Normal caliber abdominal aorta. 6. Mild sigmoid constipation. Diverticulosis. No evidence of acute diverticulitis. 7. Hepatomegaly with diffuse fatty infiltration Laboratory Results WBC 9.5 10^3/uL (4.0-10.0) 04/04/22 12:30 RBC 4.84 10^6/uL (4.1-5.3) 04/04/22 12:30 Hgb 14.6 g/dL (11.5-15.3) 04/04/22 12:30 Hct 42.2 % (37.0-47.0) 04/04/22 12:30 MCV 87.2 fl (81-99) 04/04/22 12:30 MCH 30.2 pg (28.0-34.0) 04/04/22 12:30 MCHC 34.6 g/dL (30.0-36.0) 04/04/22 12:30 RDW 12.4 % (12.1-15.1) 04/04/22 12:30 Plt Count 206 10^3/cmm (130-400) 04/04/22 12:30 MPV 12.7 fL (7.4-10.4) H 04/04/22 12:30 Neut % (Auto) 60.1 % 04/04/22 12:30 Lymph % (Auto) 29.9 % 04/04/22 12:30 [place] % (Auto) 6.3 % 04/04/22 12:30 Eos % (Auto) 2.8 % 04/04/22 12:30 Baso % (Auto) 0.5 % 04/04/22 12:30 Neut # (Auto) 5.71 10^3/uL (1.8-7.7) 04/04/22 12:30 Lymph # (Auto) 2.9 10^3/uL (0.8-4.8) 04/04/22 12:30 [place] # (Auto) 0.6 10^3/uL (0.2-0.9) 04/04/22 12:30 Eos # (Auto) 0.3 10^3/uL (0.0-0.8) 04/04/22 12:30 Baso # (Auto) 0.1 10^3/uL (0.0-0.1) 04/04/22 12:30 Nucleated RBC % (auto) 0 % 04/04/22 12:30 Nucleated RBCs # 0.0 /100WBC 04/04/22 12:30 Sodium 133 mmol/L (136-145) L 04/04/22 12:30 Potassium 4.4 mmol/L (3.5-5.1) 04/04/22 12:30 Chloride 96 mmol/L (98-107) L 04/04/22 12:30 Carbon Dioxide 26 mmol/L (22-29) 04/04/22 12:30 Anion Gap 15.4 (5-19) 04/04/22 12:30 BUN 8 mg/dL (6-20) 04/04/22 12:30 Creatinine 0.6 mg/dL (0.5-0.9) 04/04/22 12:30 GFR Calculation 109.1 mL/min (90-130) 04/04/22 12:30 Glucose 193 mg/dL (65-115) H 04/04/22 12:30 Calculated Osmolality 280 mOsm/kg (285-295) L 04/04/22 12:30 Calcium 9.6 mg/dL (8.5-10.5) 04/04/22 12:30 Total Bilirubin 0.3 mg/dL (0.15-1.2) 04/04/22 12:30 AST 17 U/L (0-32) 04/04/22 12:30 ALT 26 U/L (0-33) 04/04/22 12:30 Alkaline Phosphatase 95 U/L (35-105) 04/04/22 12:30 Total Protein 6.8 g/dL (6.6-8.7) 04/04/22 12:30 Albumin 4.2 g/dL (3.5-5.2) 04/04/22 12:30 Globulin 2.6 g/dL (1.3-4.6) 04/04/22 12:30 Lipase 22 U/L (13-60) 04/04/22 12:30 HCG, Qual Negative (Negative) 04/04/22 12:30 Urine Color Yellow (Yellow) 04/04/22 11:30 Urine Appearance Clear (CLEAR) 04/04/22 11:30 Urine pH 5 (5-7) 04/04/22 11:30 Ur Specific [place] 1.015 (1.005-1.030) 04/04/22 11:30 Urine Protein Neg (Negative) 04/04/22 11:30 Urine Glucose (UA) Norm (Normal) 04/04/22 11:30 Urine Ketones Negative (Negative) 04/04/22 11:30 Urine Blood Neg (Negative) 04/04/22 11:30 Urine Nitrate Negative (Negative) 04/04/22 11:30 Urine Bilirubin Neg (Negative) 04/04/22 11:30 Urine Urobilinogen Norm mg/dL (Negative) 04/04/22 11:30 Ur Leukocyte Esterase Negative (Negative) 04/04/22 11:30 Discharge Plan Discharge Patient Disposition: Home Clinical Impression: Abdominal pain Qualifiers: Abdominal location: generalized Qualified Code(s): R10.84 - Generalized abdominal pain Condition: Stable Prescriptions: No Action Lantus U-100 Insulin 100 unit/mL solution 8 unit SUBCUT TID propranolol 10 mg tablet 10 mg PO BID@09,20 metformin 1,000 mg tablet 1,000 mg PO BID@09,20 lisinopril 20 mg tablet 20 mg PO DAILY oxybutynin chloride 10 mg tablet extended release 24hr 10 mg PO DAILY Qty: 30 12RF Vraylar 3 mg capsule 3 mg PO .HS Qty: 30 2RF citalopram [Celexa] 10 mg tablet 10 mg PO DAILY Qty: 30 2RF prazosin 2 mg capsule 4 mg PO .HS Qty: 60 1RF trazodone 100 mg tablet 300 mg PO .HS Qty: 90 2RF Rx Instructions: take 2 to 3 tabs at bedtime as needed for sleep. insulin aspart U-100 [Novolog U-100 Insulin aspart] 100 unit/mL solution 10 unit SUBCUT DAILY Rx Instructions: 10 units at supper cetirizine 10 mg Tablet 10 mg PO DAILY@0900 gabapentin 300 mg Capsule 300 mg PO TID@,,20 Discharge Orders: Discharge ED (Routine); Ordered 04/04/22 Ordered By: Juan Pablo Dempsey Referrals: Moris Null DO [Primary Care Provider] - Discharge Diet: Advance as tolerated Discharge Activity: Resume usual activity Patient Instructions: Abdominal Pain (ED) Activity Restrictions/Additional Instructions: Follow-up with medical provider as directed in the next 5 to 7 days reevaluation. Take [id number] Tylenol and Motrin for any pain or fevers. Return to the ER or your medical provider if condition worsens. Please read and understand discharge instructions. Thank you for choosing [facility] for your healthcare needs today. Please realize this is an emergency room and that we are providing you with a medical screening exam and this may not be complete and all inclusive of all the testing and or work up that you may need to determine your ailment or severity of your illness. It is very important that you follow up as instructed or that you return to the Emergency Department should you have concerns or if your cond ition changes or worsens in any way. 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 [employer] Fwd Exam Comprehensive Documented by User: Tong Owens DO 04/05/22 10:48 HPI - Abdominal Pain General: Chief Complaint: Abdominal Pain Stated Complaint: Stomach pain Time Seen by Provider: 04/04/22 11:34 PFSH ED PFSH: Medical History (Updated 04/04/22 @ 14:53 by Leo Escobar MD) Bipolar 2 disorder DM2 (diabetes mellitus, type 2) Dyslipidemia History of abdominal hernia X2 Hypothyroidism Low back pain with sciatica Major depressive disorder without psychotic features Morbid obesity Nicotine dependence, cigarettes, uncomplicated Post-traumatic stress disorder, chronic Psychiatric care Renal stones Right ureteral calculus Urgency incontinence Surgical History H/O: hysterectomy Hx of appendectomy Hx of knee surgery right Hx of laparoscopic gastric banding Family History Mother CAD (coronary artery disease) Stroke Father CAD (coronary artery disease) Other Cancer Diabetes Hypertension Social History Smoking and tobacco status: never smoked Alcohol intake: never Household members: family Housing: House Marital status: Legally Current occupational status: employed History of recent travel: No Course Vital Signs: Vital signs: Vital Signs Temperature 97.6 F 04/04/22 10:45 Pulse Rate 71 04/04/22 14:51 Respiratory Rate 16 04/04/22 14:51 Blood Pressure 166/70 04/04/22 14:51 Pulse Oximetry 98 04/04/22 14:51 Oxygen Delivery Me thod 04/04/22 10:45 MDM - Abdominal Pain Medical Decision Making Patient is a 41-year-old female comes to the ED with abdominal pain. Past medical history of diabetes type 2, hysterectomy, appendectomy and laparoscopic gastric banding surgery. Abdominal pain started approximately 4 days ago. Patient says she was bent over at work for an extended amount of time and then when she got up she felt a sharp pain in the middle of her abdomen. Vitals are stable. Patient appears nontoxic in no acute distress or pain. She has some generalized mild tenderness throughout her abdomen but rest of exam is benign. Labs are unremarkable. CT of the abdomen shows no acute findings. Patient was diagnosed with abdominal pain and was stable for discharge home. Follow-up with PCP within the next 7 to 10 days for reevaluation. Patient understood and agreed with plan. Chart reviewed and patient discussed with midlevel. Agree with assessment and plan. Lab Data : 04/04/22 12:30 04/04/22 12:30 Labs/Radiology: Radiology Impressions Abdomen/Pelvis CT 04/04/22 12:33 IMPRESSION: 1. Tiny LEFT proximal ureteral calculus measuring 2 mm unchanged since October 2020. No evidence of obstruction. 2. No obstructing RIGHT renal or ureteral calculi. 3. Prior hysterectomy. 4. Prior laparoscopic gastric banding. 5. Normal caliber abdominal aorta. 6. Mild sigmoid constipation. Diverticulosis. No evidence of acute diverticulitis. 7. Hepatomegaly with diffuse fatty infiltration Laboratory Results WBC 9.5 10^3/uL (4.0-10.0) 04/04/22 12:30 RBC 4.84 10^6/uL (4.1-5.3) 04/04/22 12:30 Hgb 14.6 g/dL (11.5-15.3) 04/04/22 12:30 Hct 42.2 % (37.0-47.0) 04/04/22 12:30 MCV 87.2 fl (81-99) 04/04/22 12:30 MCH 30.2 pg (28.0-34.0) 04/04/22 12:30 MCHC 34.6 g/dL (30.0-36.0) 04/04/22 12:30 RDW 12.4 % (12.1-15.1) 04/04/22 12:30 Plt Count 206 10^3/cmm (130-400) 04/04/22 12:30 MPV 12.7 fL (7.4-10.4) H 04/04/22 12:30 Neut % (Auto) 60.1 % 04/04/22 12:30 Lymph % (Auto) 29.9 % 04/04/22 12:30 [place] % (Auto) 6.3 % 04/04/22 12:30 Eos % (Auto) 2.8 % 04/04/22 12:30 Baso % (Auto) 0.5 % 04/04/22 12:30 Neut # (Auto) 5.71 10^3/uL (1.8-7.7) 04/04/22 12:30 Lymph # (Auto) 2.9 10^3/uL (0.8-4.8) 04/04/22 12:30 [place] # (Auto) 0.6 10^3/uL (0.2-0.9) 04/04/22 12:30 Eos # (Auto) 0.3 10^3/uL (0.0-0.8) 04/04/22 12:30 Baso # (Auto) 0.1 10^3/uL (0.0-0.1) 04/04/22 12:30 Nucleated RBC % (auto) 0 % 04/04/22 12:30 Nucleated RBCs # 0.0 /100WBC 04/04/22 12:30 Sodium 133 mmol/L (136-145) L 04/04/22 12:30 Potassium 4.4 mmol/L (3.5-5.1) 04/04/22 12:30 Chloride 96 mmol/L (98-107) L 04/04/22 12:30 Carbon Dioxide 26 mmol/L (22-29) 04/04/22 12:30 Anion Gap 15.4 (5-19) 04/04/22 12:30 BUN 8 mg/dL (6-20) 04/04/22 12:30 Creatinine 0.6 mg/dL (0.5-0.9) 04/04/22 12:30 GFR Calculation 109.1 mL/min (90-130) 04/04/22 12:30 Glucose 193 mg/dL (65-115) H 04/04/22 12:30 Calculated Osmolality 280 mOsm/kg (285-295) L 04/04/22 12:30 Calcium 9.6 mg/dL (8.5-10.5) 04/04/22 12:30 Total Bilirubin 0.3 mg/dL (0.15-1.2) 04/04/22 12:30 AST 17 U/L (0-32) 04/04/22 12:30 ALT 26 U/L (0-33) 04/04/22 12:30 Alkaline Phosphatase 95 U/L (35-105) 04/04/22 12:30 Total Protein 6.8 g/dL (6.6-8.7) 04/04/22 12:30 Albumin 4.2 g/dL (3.5-5.2) 04/04/22 12:30 Globulin 2.6 g/dL (1.3-4.6) 04/04/22 12:30 Lipase 22 U/L (13-60) 04/04/22 12:30 HCG, Qual Negative (Negative) 04/04/22 12:30 Urine Color Yellow (Yellow) 04/04/22 11:30 Urine Appearance Clear (CLEAR) 04/04/22 11:30 Urine pH 5 (5-7) 04/04/22 11:30 Ur Specific [place] 1.015 (1.005-1.030) 04/04/22 11:30 Urine Protein Neg (Negative) 04/04/22 11:30 Urine Glucose (UA) Norm (Normal) 04/04/22 11:30 Urine Ketones Negative (Negative) 04/04/22 11:30 Urine Blood Neg (Negative) 04/04/22 11:30 Urine Nitrate Negative (Negative) 04/04/22 11:30 Urine Bilirubin Neg (Negative) 04/04/22 11:30 Urine Urobilinogen Norm mg/dL (Negative) 04/04/22 11:30 Ur Leukocyte Esterase Negative (Negative) 04/04/22 11:30 Discharge Plan Discharge Patient Disposition: Home Clinical Impression: Abdominal pain Qualifiers: Abdominal location: generalized Qualified Code(s): R10.84 - Generalized abdominal pain Condition: Stable Prescriptions: No Action Lantus U-100 Insulin 100 unit/mL solution 8 unit SUBCUT TID propranolol 10 mg tablet 10 mg PO BID@09,20 metformin 1,000 mg tablet 1,000 mg PO BID@09,20 lisinopril 20 mg tablet 20 mg PO DAILY oxybutynin chloride 10 mg tablet extended release 24hr 10 mg PO DAILY Qty: 30 12RF Vraylar 3 mg capsule 3 mg PO .HS Qty: 30 2RF citalopram [Celexa] 10 mg tablet 10 mg PO DAILY Qty: 30 2RF prazosin 2 mg capsule 4 mg PO .HS Qty: 60 1RF trazodone 100 mg tablet 300 mg PO .HS Qty: 90 2RF Rx Instructions: take 2 to 3 tabs at bedtime as needed for sleep. insulin aspart U-100 [Novolog U-100 Insulin aspart] 100 unit/mL solution 10 unit SUBCUT DAILY Rx Instructions: 10 units at supper cetirizine 10 mg Tablet 10 mg PO DAILY@0900 gabapentin 300 mg Capsule 300 mg PO TID@,, Discharge Orders: Discharge ED (Routine); Ordered 04/04/22 Ordered By: Juan Pablo Dempsey Referrals: Moris Null, [Primary Care Provider] - Discharge Diet: Advance as tolerated Discharge Activity: Resume usual activity Patient Instructions: Abdominal Pain (ED) Activity Restrictions/Additional Instructions: Follow-up with medical provider as directed in the next 5 to 7 days reevaluation. Take [id number] Tylenol and Motrin for any pain or fevers. Return to the ER or your medical provider if condition worsens. Please read and understand discharge instructions. Thank you for choosing [facility] for your healthcare needs today. Please realize this is an emergency room and that we are providing you with a medical screening exam and this may not be complete and all inclusive of all the testing and or work up that you may need to determine your ailment or severity of your illness. It is very important that you follow up as instructed or that you return to the Emergency Department should you have concerns or if your condition changes or worsens in any way. 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
[2022-04-04 12:00] LABS: Bilirubin Urine Neg (Negative); Blood Urine Neg (Negative); Glucose Urine UA Norm (Normal); Ketones Urine Negative (Negative); Nitrate Urine Negative (Negative); Protein Urine Neg (Negative); Specific Gravity, Urine 1.015 (1.005-1.030); Urine Appearance Clear (CLEAR); Urine Color Yellow (Yellow); Urobilinogen Urine Norm (Negative); pH Urine 5 (5-7)
[2022-04-04 12:01] LABS: Leukocyte Esterase Urine Negative (Negative)
--- NOTE | 2022-04-04 12:33 | CT_ITS ---
WS: [id number] CT ABDOMEN PELVIS TECHNIQUE: Noncontrast CT of the abdomen and pelvis with coronal and sagittal reformatted images. CLINICAL INFORMATION: generalized abdominal pain with nausea COMPARISON: October 29, 2020 DLP: 1218.[address] scans at [facility] use at least one of these dose optimization techniques: automated e xposure control; mA and/or kV adjustment per patient size (includes targeted exams where dose is matc hed to clinical indication); or iterative reconstruction. FINDINGS: Hepatomegaly with diffuse fatty infiltration. Enlargement of the RIGHT hepatic lobe. Gallbl adder is contracted. Lung bases are well aerated. Noncontrast spleen is normal. Adrenal glands are no rmal. No hydronephrosis in either kidney. Normal caliber abdominal aorta. No periaortic lymphadenopat hy. Sigmoid diverticulosis. No evidence of acute diverticulitis. Noncontrast pancreas is unremarkable. Tiny calculus LEFT proximal ureter measuring 2 mm unchanged sin ce October 29, 2020. No evidence of significant obstruction. Distal LEFT ureter is normal. Pelvic phlebol iths. Evidence of prior postoperative changes along the ventral abdominal wall. Prior hysterectomy. Prior l aparoscopic banding at the GE junction. CT/CT abdomen pelvis wo con [id number] IMPRESSION: 1. Tiny LEFT proximal ureteral calculus measuring 2 mm unchanged since October 1. No evidence of obstruction. 2. No obstructing RIGHT renal or ureteral calculi. 3. Prior hysterectomy. 4. Prior laparoscopic gastric banding. 5. Normal caliber abdominal aorta. 6. Mild sigmoid constipation. Diverticulosis. No evidence of acute diverticuli tis. 7. Hepatomegaly with diffuse fatty infiltration
[2022-04-04] MEDS: morphine 4 mg/mL SDV 1 mL IVP (12:35)
[2022-04-04] MEDS: ondansetron 2 mg/ML SDV 2 mL 4 MG IVP (12:35)
[2022-04-04] MEDS: sodium chloride 0.9% 500 ML 999 ML IV (12:36)
[2022-04-04 12:38] LABS: Basophils # 0.1 10^3/uL (0.0-0.1); Basophils % 0.5 %; Eosinophils # 0.3 10^3/uL (0.0-0.8); Eosinophils % 2.8 %; Hematocrit 42.2 % (37.0-47.0); Hemoglobin 14.6 g/dL (11.5-15.3); Lymphocytes # 2.9 10^3/uL (0.8-4.8); Lymphocytes % 29.9 %; Mean Corpuscular HGB Conc 34.6 g/dL (30.0-36.0); Mean Corpuscular Hemoglobin 30.2 pg (28.0-34.0); Mean Corpuscular Volume 87.2 fl (81-99); Mean Platelet Volume 12.7 fL (7.4-10.4); Monocytes # 0.6 10^3/uL (0.2-0.9); Monocytes % 6.3 %; Neutrophils # 5.71 10^3/uL (1.8-7.7); Neutrophils % 60.1 %; Nucleated Red Blood Cells % 0 %; Platelet Count 206 10^3/cmm (130-400); Red Blood Count 4.84 10^6/uL (4.1-5.3); Red Cell Distribution Width 12.4 % (12.1-15.1); White Blood Count 9.5 10^3/uL (4.0-10.0)
[2022-04-04 12:49] LABS: HCG, Serum Qual Negative (Negative)
[2022-04-04 12:56] LABS: Alanine Aminotransferase 26 U/L (0-33); Albumin Level 4.2 g/dL (3.5-5.2); Alkaline Phosphatase 95 U/L (35-105); Anion Gap 15.4 (5-19); Aspartate Amino Transferase 17 U/L (0-32); Blood Urea Nitrogen 8 mg/dL (6-20); Calcium 9.6 mg/dL (8.5-10.5); Carbon Dioxide 26 mmol/L (22-29); Chloride 96 mmol/L (98-107); Globulin 2.6 g/dL (1.3-4.6); Glomerular Filtration Rate 109.1 mL/min (90-130); Glucose 193 mg/dL (65-115); Lipase 22 U/L (13-60); Osmolality Calculated 280 mOsm/kg (285-295); Potassium 4.4 mmol/L (3.5-5.1); Sodium 133 mmol/L (136-145); Total Bilirubin 0.3 mg/dL (0.15-1.2); Total Protein 6.8 g/dL (6.6-8.7)
[2022-04-04 14:00] VITALS: BP 168/90
[2022-04-04 14:40] VITALS: BP 172/98
[2022-04-04 14:51] VITALS: BP 166/70; PULSE 71; RESP 16; O2SAT 98
== END 2022-04-04 14:53 | disposition home or self-care (01) ==
PROVIDERS: Emergency Provider Physician Assistant; PCP Family Medicine
DX: R10.84 Generalized abdominal pain (principal); Z79.4 Long term (current) use of insulin; Z79.84 Long term (current) use of oral hypoglycemic drugs; E11.9 Type 2 diabetes mellitus without complications; E78.5 Hyperlipidemia, unspecified
CPT/HCPCS: 74176; 80053; 81003; 83690; 84703; 85025; 96361; 96374; 96375; 99285; J2270; J2405; J7040

== ENCOUNTER 2022-05-13 10:24 | Emergency (ER) | payer MEDICAID, SELFPAY ==
[2022-05-13 10:30] VITALS: BP 160/102; PULSE 86; RESP 18; TEMP 36.6; O2SAT 97; BMI 48.5
--- NOTE | 2022-05-13 10:49 | ED_ITS ---
HPI - Skin/Abscess/Foreign Bdy General: Chief complaint: Skin/Abscess/Foreign Body Stated complaint: Both feet are in pain, had surgery Time Seen by Provider: 05/13/22 10:27 History of Present Illness: Patient is a 41-year-old female who comes to the ED with postsurgical bilateral great toe pain. Patient had both great toenails removed back on May 08. She has been changing the bandages daily and using peroxide to clean him and then applying triple antibiotic and a new bandage. She is having increased pain and erythema of both great toes. Left toe is more painful and red than right great toe. She rates the pain currently at 10 out of 10. Denies any fevers or chills. Associated symptoms: Deny chills, fever(s), nausea or vomiting Review of Systems Const: Denies: fever(s), chills or fatigue Eyes: Denies: change in vision or eye discomfort ENMT: Denies: throat pain, odynophagia, nasal discharge or nasal congestion Card: Denies: chest pain, palpitations, edema, swelling of feet/ankles, dyspnea on exertion or orthopnea Resp: Denies: dyspnea, productive cough or non-productive cough GI: Denies: abdominal pain, nausea, vomiting, diarrhea, constipation or hematochezia : Denies: flank pain, dysuria or hematuria Musc: Reports: extremity pain (Bilateral great toes) and extremity swelling (Bilateral great toe); Denies: neck pain or back pain Skin/Breast: Denies: rash or new lesions Neuro: Denies: headache(s), numbness in extremities or weakness in extremities PFS ED PFSH: Medical History Bipolar 2 disorder DM2 (diabetes mellitus, type 2) Dyslipidemia History of abdominal hernia X2 Hypothyroidism Low back pain with sciatica Major depressive disorder without psychotic features Morbid obesity Nicotine dependence, cigarettes, uncomplicated Post-traumatic stress disorder, chronic Psychiatric care Renal stones Right ureteral calculus Urgency incontinence Surgical History H/O: hysterectomy Hx of appendectomy Hx of knee surgery right Hx of laparoscopic gastric banding Family History Mother CAD (coronary artery disease) Stroke Father CAD (coronary artery disease) Other Cancer Diabetes Hypertension Social History Smoking and tobacco status: current every day smoker cigarettes Packs smoked per day: 1 Years cigarettes smoked: 28 Alcohol intake: never Household members: family Housing: House Marital status: Legally Current occupational status: employed History of recent travel: No Female Reproductive History: Spontaneous abortions: No Physical Exam Const: COMMON NORMALS: no acute distress, patient oriented x3 and alert HENMT: COMMON NORMALS: normocephalic HEAD & SCALP: normocephalic MOUTH: Normal oral and palatal mucosa present THROAT: posterior oropharynx normal and uvula midline Neck/C-Spine: COMMON NORMALS: supple GENERAL: Yes normal visual inspection Resp: COMMON NORMALS: normal respiratory effort, No retractions, No use of accessory muscles and clear to auscultation bilaterally AUSCULTATION: clear to auscultation bilaterally Cardio: COMMON NORMALS: regular rate, regular rhythm, S1 normal heart sound present, S2 normal heart sound present, No gallops present (Cardio), No clicks present (Cardio), No murmurs present (Cardio) and Peripheral pulses 2+ throughout RATE: regular rate RHYTHM: regular rhythm HEART SOUNDS: S1 normal heart sound present and S2 normal heart sound present PERIPHERAL PULSES: Peripheral pulses 2+ throughout GI: COMMON NORMALS: Normal to inspection, nondistended, normoactive bowel sounds present, Soft to palpation, non-tender and no masses PALPATION: Yes Soft to palpation : COMMON NORMALS: Yes no CVA tenderness BLADDER/KIDNEY EXAM: Yes no CVA tenderness Back/Pelvis: COMMON NORMALS: no CVA tenderness Extremity: NARRATIVE EXTREMITY EXAM: Left great toe swelling, erythema and warmth on distal end of toe around cuticle region. Tender to the touch. No red streaking in foot or ankle. Findings suggestive of cellulitis. Right great toe swelling, erythema and warmth on distal end of toe around cuticle region tender to the touch no red streaking in foot or ankle. Finding suggestive of cellulitis. Neuro: COMMON NORMALS: patient oriented x3 SENSORIUM/ORIENTATION: Yes alert GAIT: Yes Normal gait present Skin: GENERAL SKIN EXAM: dry skin Course Vital Signs: Vital signs: Vital Signs Temperature 98 F 05/13/22 10:30 Pulse Rate 88 05/13/22 11:24 Respiratory Rate 16 05/13/22 11:24 Blood Pressure 160/102 05/13/22 10:30 Pulse Oximetry 93 05/13/22 11:24 Oxygen Delivery Me thod 05/13/22 10:30 MDM - Skin/Abscess/Foreign Bdy Medicial Decision Making Patient is a 41-year-old female who comes to the ED with postsurgical bilateral great toe pain. Patient had both great toenails removed back on May 08. Exam of patient shows cellulitis developing on great toes bilaterally. Patient was given a shot of Rocephin here in the ED and discharged home with a prescription for tramadol for pain and Keflex. Told to follow-up with surgeon at next scheduled appointment this coming week. Patient understood and agreed with plan. Discharge Plan Discharge Patient Disposition: Home Clinical Impression: Cellulitis, wound, post-operative Condition: Stable Prescriptions: New cephalexin 500 mg capsule 500 mg PO Q6H 7 Days Qty: 28 0RF No Action propranolol 10 mg tablet 10 mg PO BID@09,20 metformin 1,000 mg tablet 1,000 mg PO BID@09,20 oxybutynin chloride 10 mg tablet extended release 24hr 10 mg PO DAILY Qty: 30 12RF mirtazapine [Remeron] 15 mg tablet 15 mg PO .HS Qty: 30 1RF prazosin 2 mg capsule 4 mg PO .HS Qty: 60 1RF citalopram [Celexa] 20 mg tablet 20 mg PO DAILY Qty: 30 1RF Vraylar 3 mg capsule 3 mg PO .HS Qty: 30 1RF tramadol 50 mg tablet 50 mg PO TID PRN (Reason: pain) Qty: 90 0RF tizanidine 4 mg tablet 4 mg PO TID PRN (Reason: muscle spasticity) Qty: 90 0RF insulin aspart U-100 [Novolog U-100 Insulin aspart] 100 unit/mL solution 10 unit SUBCUT TID Rx Instructions: 10 units with meals. insulin glargine [Lantus U-100 Insulin] 100 unit/mL solution 15 unit SUBCUT DAILY nitrofurantoin macrocrystal 100 mg capsule 100 mg PO BID Qty: 14 0RF Rx Instructions: must administer with a meal/food lidocaine (PF) 20 mg/mL (2 %) solution 20 mg peripheral nerve block ONCE Qty: 2 0RF lidocaine (PF) 20 mg/mL (2 %) solution 20 mg peripheral nerve block ONCE Qty: 2 0RF silver nitrate applicators 75-25 % stick 1 applic topical ONCE Qty: 4 0RF cetirizine 10 mg Tablet 10 mg PO DAILY@0900 gabapentin 300 mg Capsule 300 mg PO TID@09,12,20 Discharge Orders: Discharge ED (Routine); Ordered 05/13/22 Ordered By: Juan Pablo Dempsey Referrals: Moris Null, [Primary Care Provider] - Discharge Diet: Regular Discharge Activity: Increase activity as tolerated Patient Instructions: Cellulitis (ED) Activity Restrictions/Additional Instructions: Follow-up with surgeon at next appointment this coming Sunday. take medications as prescribed. Return to the ER or your medical provider if condition worsens. Please read and understand discharge instructions. Thank you for choosing [facility] for your healthcare needs today. Please realize this is an emergency room and that we are providing you with a medical screening exam and this may not be complete and all inclusive of all the testing and or work up that you may need to determine your ailment or severity of your illness. It is very important that you follow up as instructed or that you return to the Emergency Department should you have concerns or if your condition changes or worsens in any way. Stand Alone Forms: Work/School Release Coding Level of Care Code ED Cone Worker for Alcides Fwd Exam Comprehensive
[2022-05-13] MEDS: cefTRIAXone 1,000 MG in lidocaine 1% 2.1 ML 2 MG IM (11:14)
[2022-05-13] MEDS: HYDROcodone-acetaminophen 7.5-325 mg Tablet 1 TAB PO (11:16)
[2022-05-13 11:24] VITALS: PULSE 88; RESP 16; O2SAT 93
== END 2022-05-13 11:22 | disposition home or self-care (01) ==
PROVIDERS: Emergency Provider Physician Assistant; PCP Family Medicine
DX: L03.032 Cellulitis of left toe (principal); L03.031 Cellulitis of right toe
CPT/HCPCS: 96372; 99284; J0696

== ENCOUNTER 2022-05-30 09:38 | Outpatient (CLI) | payer MEDICAID, SELFPAY ==
--- NOTE | 2022-05-30 09:46 | XR_ITS ---
WS: [id number] KUB, AP view, 05/30/2022 Clinical Data: Renal Stones Comparison: KUB, 05/31/2021 Findings: No abnormal intraabdominal masses or calcifications are seen. There is no dilatated small bowel or ev idence of obstruction. There are surgical clips overlying the right SI joint. There are surgical clips in the left upper antonio drant. There is a radiopaque catheter overlying the left upper quadrant. XR/XR KUB [id number] Impression: Negative KUB.
== END 2022-05-30 09:39 | disposition home or self-care (01) ==
LOC: RAD 09:42
PROVIDERS: PCP Family Medicine; Visit Provider Urology
DX: N20.0 Calculus of kidney (principal); N39.41 Urge incontinence; R35.89 Other polyuria; N30.00 Acute cystitis without hematuria
CPT/HCPCS: 74018; 99214

== ENCOUNTER → 2022-06-20 17:35 | Outpatient (BNVA) | payer MEDICAID, SELFPAY | PROVIDERS: PCP Family Medicine; Visit Provider Nurse Practitioner Family | DX: R39.9 Unspecified symptoms and signs involving the genitourinary system (principal) | CPT/HCPCS: 81000 ==

== ENCOUNTER 2022-07-13 07:41 | Outpatient (CLI) | payer MEDICAID, SELFPAY ==
--- NOTE | 2022-07-13 08:35 | MM_ITS ---
WS: [id number] BILATERAL SCREENING DIGITAL TOMOSYNTHESIS MAMMOGRAM WITH CAD HISTORY: Breast cancer screening COMPARISON: None available. Bilateral CC and MLO views with tomosynthesis and synthetic mammography submitted. Computer aided det ection analyzed. Breast composition: There are scattered areas of fibroglandular density. No suspicious masses, microc alcifications or architectural distortion. There are a few very minimal benign calcifications. MM/[place] [id number] IMPRESSION: BI-RADS: 2-Benign FOLLOW UP: 1 Year Follow-up
== END 2022-07-13 07:42 | disposition home or self-care (01) ==
LOC: RAD 07:41
PROVIDERS: PCP Family Medicine; Visit Provider Family Medicine
DX: Z12.31 Encounter for screening mammogram for malignant neoplasm of breast (principal)
CPT/HCPCS: 77063; 77067

== ENCOUNTER 2022-08-08 01:15 | Emergency (ER) | payer MEDICAID, SELFPAY ==
[2022-08-08 01:20] VITALS: BP 147/100; PULSE 102; RESP 18; TEMP 35.9; O2SAT 90; BMI 47.9
--- NOTE | 2022-08-08 01:31 | W.ED.FEMALGU ---
HPI - Female Genitourinary General: Chief complaint: Urogenital-Female Stated complaint: Private Area Pain Time Seen by Provider: 08/08/22 01:16 History of Present Illness: Patient is a 41-year-old female comes to the ED with left groin pain and swelling. Patient says yesterday she started developing a tender nodule on the left side of her groin. Today pain and swelling got significantly worse. She states she has a history of cysts in this area and has had to have them drained before. She rates the pain currently a 6 out of 10. Today she also endorses having some bloody drainage from tender area. Endorses having some hematuria. Denies fevers, nausea/vomiting, abdominal pain, dysuria. Associated symptoms: Deny abdominal pain, headache(s) or nausea Review of Systems Const: Denies: fever(s), chills or fatigue Eyes: Denies: change in vision or eye discomfort ENMT: Denies: throat pain, odynophagia, nasal discharge or nasal congestion Card: Denies: chest pain, palpitations, edema, swelling of feet/ankles, dyspnea on exertion or orthopnea Resp: Denies: dyspnea, productive cough or non-productive cough GI: Denies: abdominal pain, nausea, vomiting, diarrhea, constipation or hematochezia : Reports: other (Left groin/buttock area pain and swelling); Denies: flank pain, dysuria or hematuria Musc: Denies: neck pain, back pain or extremity swelling Skin/Breast: Denies: rash or new lesions Neuro: Denies: headache(s), numbness in extremities or weakness in extremities PFS ED PFSH: Medical History Bipolar 2 disorder DM2 (diabetes mellitus, type 2) Dyslipidemia History of abdominal hernia X2 Hypothyroidism Low back pain with sciatica Major depressive disorder without psychotic features Morbid obesity Nicotine dependence, cigarettes, uncomplicated Post-traumatic stress disorder, chronic Psychiatric care Urgency incontinence Urolithiasis Surgical History H/O: hysterectomy Hx of appendectomy Hx of knee surgery right Hx of laparoscopic gastric banding Family History Mother CAD (coronary artery disease) Stroke Father CAD (coronary artery disease) Other Cancer Diabetes Hypertension Social History Smoking and tobacco status: current every day smoker cigarettes Packs smoked per day: 1 Years cigarettes smoked: 28 Alcohol intake: never Household members: family Housing: House Marital status: Legally Current occupational status: employed Female Reproductive History: Spontaneous abortions: No Physical Exam Const: COMMON NORMALS: no acute distress, patient oriented x3 and alert GENERAL APPEARANCE: cooperative and comfortable HENMT: COMMON NORMALS: normocephalic HEAD & SCALP: normocephalic MOUTH: Normal oral and palatal mucosa present THROAT: posterior oropharynx normal and uvula midline Neck/C-Spine: COMMON NORMALS: supple GENERAL: Yes normal visual inspection Resp: COMMON NORMALS: normal respiratory effort, No retractions, No use of accessory muscles and clear to auscultation bilaterally AUSCULTATION: clear to auscultation bilaterally Cardio: COMMON NORMALS: regular rate, regular rhythm, S1 normal heart sound present, S2 normal heart sound present, No gallops present (Cardio), No clicks present (Cardio), No murmurs present (Cardio) and Peripheral pulses 2+ throughout RATE: regular rate RHYTHM: regular rhythm HEART SOUNDS: S1 normal heart sound present and S2 normal heart sound present PERIPHERAL PULSES: Peripheral pulses 2+ throughout GI: COMMON NORMALS: Normal to inspection, nondistended, normoactive bowel sounds present, Soft to palpation, non-tender and no masses PALPATION: Yes Soft to palpation : COMMON NORMALS: Yes no CVA tenderness BLADDER/KIDNEY EXAM: Yes no CVA tenderness OTHER: Bottom of left buttock, just inferior to vagina?swollen and tender nodule with some erythema as well. Small open wound with a little bloody drainage. Fluctuant and induration. It appears to be the start of superficial skin abscess. swelling does not involve the vagina and is not a Bartholin cyst. Back/Pelvis: COMMON NORMALS: no CVA tenderness Extremity: COMMON NORMALS: normal to inspection Neuro: COMMON NORMALS: patient oriented x3 SENSORIUM/ORIENTATION: Yes alert GAIT: Yes Normal gait present Skin: GENERAL SKIN EXAM: dry skin Procedures Abscess I/D Site: apollo-rectal (Left buttock-area cleaned with CHG swab) Side (if applicable): left Sedation/analgesia: other (4 mg of morphine given to help with pain) Local Anesthetic: lidocaine 1% Amount of anesthesia used (mL): 3 Technique: incised with #11 blade Amount of fluid expressed (mL): 2 Irrigation: No Packing used?: plain Course Vital Signs: Vital signs: Vital Signs Temperature 98.0 F 08/08/22 02:28 Pulse Rate 78 08/08/22 02:28 Respiratory Rate 18 08/08/22 02:28 Blood Pressure 147/100 08/08/22 01:20 Pulse Oximetry 98 08/08/22 02:28 Oxygen Delivery Me thod 08/08/22 01:20 MDM - Female Medical Decision Making Patient is a 41-year-old female comes to the ED with left groin pain and swelling. Patient says yesterday she started developing a tender nodule on the left side of her groin. Today pain and swelling got significantly worse. She states she has a history of cysts in this area and has had to have them drained before. She rates the pain currently a 6 out of 10. Today she also endorses having some bloody drainage from tender area. Endorses having some hematuria. Denies fevers, nausea/vomiting, abdominal pain, dysuria. Vitals are stable. Patient appears nontoxic in no acute distress or pain. Exam shows Bottom of left buttock, just inferior to vagina?swollen and tender nodule with some erythema as well. Small open wound with a little bloody drainage. Fluctuant and induration. It appears to be the start of superficial skin abscess. Swelling does not involve the vagina and is not a Bartholin cyst. Abscess culture pending. UA unremarkable. Lidocaine 1% was used as local and IM morphine given to help with pain as well. Abscess I&D performed with 11 blade. Packing placed. Patient was given dose of clindamycin here in the ED. She was diagnosed with an abscess and discharged home with a prescription for clindamycin. She was told to have abscess packing removed within the next 24 to 48 hours. Follow-up with PCP within the next couple days for reevaluation. Return to ED precautions given. Patient understood and agreed with plan. Lab Data I reviewed the patient's lab results. Laboratory Results HCG, Qual Negative (Negative) 08/08/22 01:35 Urine Color Yellow (Yellow) 08/08/22 01:35 Urine Appearance Clear (CLEAR) 08/08/22 01:35 Urine pH 6 (5-7) 08/08/22 01:35 Ur Specific [place] 1.010 (1.005-1.030) 08/08/22 01:35 Urine Protein Neg (Negative) 08/08/22 01:35 Urine Glucose (UA) 4+ (Normal) H 08/08/22 01:35 Urine Ketones Negative (Negative) 08/08/22 01:35 Urine Blood 2+ (Negative) H 08/08/22 01:35 Urine Nitrate Negative (Negative) 08/08/22 01:35 Urine Bilirubin Neg (Negative) 08/08/22 01:35 Urine Urobilinogen Norm mg/dL (Negative) 08/08/22 01:35 Ur Leukocyte Esterase Trace (Negative) H 08/08/22 01:35 Urine RBC 0-4 /hpf (0-2) H 08/08/22 01:35 Urine WBC 0-4 /hpf (0-5) H 08/08/22 01:35 Ur Squamous Epith Cells 0-4 /hpf (0-5) H 08/08/22 01:35 Amorphous Sediment Not Reportable 08/08/22 01:35 Urine Bacteria Trace /hpf (NONE) 08/08/22 01:35 Urine Yeast Trace /hpf 08/08/22 01:35 Discharge Plan Discharge Patient Disposition: Home Clinical Impression: Abscess of buttock, left Condition: Stable Prescriptions: New clindamycin HCl 150 mg capsule 300 mg PO Q6H 10 Days Qty: 80 0RF No Action propranolol 10 mg tablet 10 mg PO BID@09,20 metformin 1,000 mg tablet 1,000 mg PO BID@09,20 oxybutynin chloride 10 mg tablet extended release 24hr 10 mg PO DAILY Qty: 30 12RF mirtazapine 45 mg tablet 45 mg PO .HS Qty: 30 2RF Vraylar 3 mg capsule 3 mg PO .HS Qty: 30 2RF citalopram [Celexa] 20 mg tablet 20 mg PO DAILY Qty: 30 2RF prazosin 2 mg capsule 4 mg PO .HS Qty: 60 2RF fluconazole [Diflucan] 150 mg tablet See Rx Instructions .ROUTE .COMPLEX 14 Days Qty: 4 0RF Rx Instructions: Take one tab on day 1, 4, 7, 14. insulin aspart U-100 [Novolog U-100 Insulin aspart] 100 unit/mL solution 10 unit SUBCUT TID Rx Instructions: 10 units with meals. insulin glargine [Lantus U-100 Insulin] 100 unit/mL solution 15 unit SUBCUT DAILY lidocaine (PF) 20 mg/mL (2 %) solution 20 mg peripheral nerve block ONCE Qty: 2 0RF lidocaine (PF) 20 mg/mL (2 %) solution 20 mg peripheral nerve block ONCE Qty: 2 0RF silver nitrate applicators 75-25 % stick 1 applic topical ONCE Qty: 4 0RF tizanidine 4 mg tablet See Rx Instructions .ROUTE .COMPLEX Qty: 90 0RF Dose Instruction: TAKE 1 TABLET BY MOUTH THREE TIMES DAILY NEEDED FOR MUSCLE SPASMS Rx Instructions: TAKE 1 TABLET BY MOUTH THREE TIMES DAILY NEEDED FOR MUSCLE SPASMS tramadol 50 mg tablet 50 mg PO TID PRN (Reason: pain) Qty: 90 0RF cetirizine 10 mg Tablet 10 mg PO DAILY@0900 gabapentin 300 mg Capsule 300 mg PO TID@09,12,20 Discharge Orders: Discharge ED (Routine); Ordered 08/08/22 Ordered By: Juan Pablo Dempsey Referrals: Moris Null DO [Primary Care Provider] - Discharge Diet: Regular Discharge Activity: Increase activity as tolerated Patient Instructions: Abscess (ED), Abscess Follow-up (ED) Activity Restrictions/Additional Instructions: Follow-up with your PCP within the next 2 to 3 days for reevaluation. Have packing removed within the next 24 to 48 hours. Clean area with soap and water daily and cover with bandage. Take medications as prescribed. Return to the ER or your medical provider if condition worsens. Please read and understand discharge instructions. Thank you for choosing [facility] for your healthcare needs today. Please realize this is an emergency room and that we are providing you with a medical screening exam and this may not be complete and all inclusive of all the testing and or work up that you may need to determine your ailment or severity of your illness. It is very important that you follow up as instructed or that you return to the Emergency Department should you have concerns or if your condition changes or worsens in any way. Coding Level of Care Code ED Information Coder for Alcides Biggs
[2022-08-08 01:44] LABS: HCG Qualitative Urine. Negative (Negative)
[2022-08-08 01:48] VITALS: RESP 18
[2022-08-08] MEDS: morphine 4 mg/mL SDV 1 mL IM (01:48)
[2022-08-08 01:52] LABS: Add Urine Culture? Yes; Add Urine Microscopic? YES; Bacteria Urine TRACE /hpf; Bilirubin Urine Neg (Negative); Blood Urine 2+ (Negative); Glucose Urine UA 4+ (Normal); Ketones Urine Negative (Negative); Leukocyte Esterase Urine Trace (Negative); Nitrate Urine Negative (Negative); Protein Urine Neg (Negative); RBC Urine 0-4 /hpf (0-2); Squamous Epithelial Cell Urine 0-4 /hpf (0-5); Urine Appearance Clear (CLEAR); Urine Color Yellow (Yellow); Urobilinogen Urine Norm (Negative); WBC Urine 0-4 /hpf (0-5); pH Urine 6 (5-7)
[2022-08-08] MEDS: clindamycin 150 mg Capsule 300 MG PO (02:16)
[2022-08-08] MEDS: lidocaine 1% INJ 10 mL (per mL) 5 ML INJECTION (02:17)
[2022-08-08 02:28] VITALS: PULSE 78; RESP 18; TEMP 36.7; O2SAT 98
== END 2022-08-08 02:31 | disposition home or self-care (01) ==
PROVIDERS: Emergency Provider Physician Assistant; PCP Family Medicine
DX: L02.31 Cutaneous abscess of buttock (principal); Z79.84 Long term (current) use of oral hypoglycemic drugs; Z79.4 Long term (current) use of insulin; F17.210 Nicotine dependence, cigarettes, uncomplicated; E11.9 Type 2 diabetes mellitus without complications; E78.5 Hyperlipidemia, unspecified
CPT/HCPCS: 81001; 81025; 87070; 87075; 87086; 87205; 96372; 99284; J2270

== ENCOUNTER 2022-08-13 13:29 | Emergency (ER) | payer MEDICAID, SELFPAY ==
[2022-08-13 13:47] VITALS: BP 153/125; PULSE 97; RESP 20; TEMP 36.8; O2SAT 94; BMI 47.9
--- NOTE | 2022-08-13 14:23 | CTR_ITS ---
PROCEDURE INFORMATION: Exam: CT Pelvis With Contrast Exam date and time: 08/13/2022 3:00 PM Age: 41 years old Clinical indication: Pelvic pain; Additional info: Abscess to left perineum area, i d with packing previously, currently on TECHNIQUE: Imaging protocol: Computed tomography of the pelvis with contrast. Radiation optimization: All CT scans at this facility use at least one of these dose optimization techniques: automated exposure control; mA and/or kV adjustment per patient size (includes targeted exams where dose is matched to clinical indication); or iterative reconstruction. Contrast material: OMNI 350; Contrast volume: 100 ml; Contrast route: INTRAVENOUS (IV); REPORTING DATA: Count of CT and Cardiac NM exams in prior 12 months: This patient has received [address] and 0 known cardiac nuclear medicine studies in the 12 months prior to the current study. COMPARISON: CT abdomen pelvis wo con [id number] 04/04/2022 12:53 PM RADIATION DOSE METRICS: Total DLP (mGy-cm): 979.55 FINDINGS: Stomach and bowel: Visualized small bowel and colon are unremarkable. Appendix: No evidence of appendicitis. Intraperitoneal space: Surgical clips noted in the right lower abdomen. Lymph nodes: Unremarkable. No enlarged lymph nodes. Urinary bladder: Normal. No mass. Reproductive: The uterus is surgically absent. Bones/joints: Unremarkable. No acute fracture. No dislocation. Soft tissues: Along the medial aspect of the left upper thigh, there is tiny amount of subcutaneous emphysema, mild stranding of the adjacent fat and thickening of the overlying skin, concerning for cellulitis. No fluid collection seen. CT/CT pelvis w con* [id number] IMPRESSION: Imaging findings of cellulitis with small amount of subcutaneous emphysema about the medial aspect of the left upper thigh. No abscess identified.
--- NOTE | 2022-08-13 14:26 | W.ED.WOUNDLC ---
HPI - Wound/Laceration General: Chief Complaint: Wound/Laceration Stated Complaint: Knot in vaginal area Time Seen by Provider: 08/13/22 13:50 Source: patient Mode of arrival: ambulatory Limitations: no limitations History of Present Illness: Patient presents emergency department today accompanied by family for evaluation treatment of continued and worsening left inner groin/perineal region infection. Patient was originally seen here in the ER on 08/08. She was diagnosed with a skin abscess just inferiorly and towards the left groin which was incised and drained. There is only scant amount of purulent accumulation that came out but, wound culture was obtained. Culture indicated normal jahaira growth with gram-positive cocci present-most likely staph. Patient reports she has a history of these in the past. She has had staph infections and reports she has been hospitalized for several days due to them. Patient is a diabetic on insulin but states her blood sugars seem well controlled. She comes in as she is in significant pain from both the area of wound infection and for the development of a rash in the vulvovaginal region. Patient reports she was in so much pain today her boss came in to relieve her and told her to come to the emergency room. Patient has been taking clindamycin since her last evaluation. She reports she is starting to have some diarrhea from it but has not had any vomiting. Review of Systems General: Reports: 10 or more systems reviewed and unremarkable except in HPI and below Skin/Breast: Reports: rash, pruritus, erythema, skin pain, skin tenderness, skin swelling and non-healing lesions PFSH ED PFSH: Medical History Bipolar 2 disorder DM2 (diabetes mellitus, type 2) Dyslipidemia History of abdominal hernia X2 Hypothyroidism Low back pain with sciatica Major depressive disorder without psychotic features Morbid obesity Nicotine dependence, cigarettes, uncomplicated Post-traumatic stress disorder, chronic Psychiatric care Urgency incontinence Urolithiasis Surgical History H/O: hysterectomy Hx of appendectomy Hx of knee surgery right Hx of laparoscopic gastric banding Family History Mother CAD (coronary artery disease) Stroke Father CAD (coronary artery disease) Other Cancer Diabetes Hypertension Social History Smoking and tobacco status: current every day smoker cigarettes Packs smoked per day: 1 Years cigarettes smoked: 28 Alcohol intake: never Household members: family Housing: House Marital status: Legally Current occupational status: employed Female Reproductive History: Spontaneous abortions: No Physical Exam Const: COMMON NORMALS: no acute distress, patient oriented x3 and alert; negative for average body habitus (Large body habitus) HENMT: COMMON NORMALS: normocephalic, atraumatic, hearing grossly normal bilaterally and moist oral mucous membranes HEAD & SCALP: normocephalic and atraumatic Eye: COMMON NORMALS: Equal, round and reactive pupils present, EOMs intact bilaterally and conjunctivae normal CONJUNCTIVA: Yes conjunctivae normal PUPIL: Yes Equal, round and reactive pupils present Neck/C-Spine: COMMON NORMALS: no JVD Lymph: LYMPHATIC: no lymphadenopathy noted Resp: COMMON NORMALS: normal respiratory effort, No retractions and No use of accessory muscles Cardio: COMMON NORMALS: no JVD and regular rate RATE: regular rate : OTHER: Patient has a beefy red rash affecting the bilateral groins up over the top of the mons, through the vaginal region and up until the anus and perineum. Currently has Desitin on the area so is somewhat difficult to fully ascertain the characteristics but, does not appear to be blistered or vesicular. No signs of bleeding. Patient has a gaping wound proximally 1.25 cm in length and 1 cm wide noted to the left innermost groin/perineum region next to the inferior vaginal opening. There is no active bleeding but, it does appear to have some thick yellow and green accumulation adhered to the geiger of the wound. There is significant erythema and induration to this area different than the characteristics of the all of her groin and vulvovaginal rash the patient has developed. Patient can hardly stand any type of palpation or examination to this area. Extremity: COMMON NORMALS: normal to inspection, full ROM and capillary refill normal Neuro: COMMON NORMALS: patient oriented x3 SENSORIUM/ORIENTATION: Yes alert Psych: COMMON NORMALS: mental status grossly normal, cooperative, normal affect, speech normal and activity/motor behavior normal SPEECH: Yes normal speech Course Vital Signs: Vital signs: Vital Signs Temperature 98.2 F 08/13/22 13:47 Pulse Rate 97 08/13/22 13:47 Respiratory Rate 18 08/13/22 14:49 Blood Pressure 161/111 08/13/22 16:46 Pulse Oximetry 94 08/13/22 13:47 Oxygen Delivery Me thod 08/13/22 13:47 MDM - Wound/Laceration Medical Decision Making Patient presents emergency department today for evaluation treatment of new onset vulvovaginitis and rash as well as continued pain from previous I&D. Patient's previous I&D does appear still open and will most likely need to heal by secondary intention. The area of significantly indurated and erythematous and, given its location and diabetic history, did proceed on with a CT examination to rule out a Rony's gangrene or deeper abscess. Patient's lab work showed her blood sugar was almost 500. She had no significant elevated white blood cell count. CT was negative for Rony's however, does still indicate an area of cellulitis. Patient is most likely experiencing yeast infection secondary to her blood sugars and antibiotic use however, it does appear she is having some GI upset due to to the clindamycin and, does not seem to be working very well for her to cover the infection. After discussing with Dr. Salas, we will switch her to doxycycline and treat for the yeast infection. I also provided her topical nystatin to help with immediate relief of irritation and friction in the area. Patient was also given IV pain medicine while here which worked until discharge when patient indicated her pain was returning. Dr. Salas had provided her a prescription for [place] and we encouraged her to go get the medication picked up. I also encouraged her to have a wound check with her primary care doctor this week and we also discussed return precautions. DDx: Gordon's gangrene, abscess, cellulitis, open wound, side effect of clindamycin, vulvovaginitis/yeast infection Lab Data 08/13/22 14:47 08/13/22 14:[address] 08/13/22 14:23 IMPRESSION: Imaging findings of cellulitis with small amount of subcutaneous emphysema about the medial aspect of the left upper thigh. No abscess identified. Laboratory Results WBC 8.8 10^3/uL (4.0-10.0) 08/13/22 14:47 RBC 5.31 10^6/uL (4.1-5.3) H 08/13/22 14:47 Hgb 15.2 g/dL (11.5-15.3) 08/13/22 14:47 Hct 45.4 % (37.0-47.0) 08/13/22 14:47 MCV 85.5 fl (81-99) 08/13/22 14:47 MCH 28.6 pg (28.0-34.0) 08/13/22 14:47 MCHC 33.5 g/dL (30.0-36.0) 08/13/22 14:47 RDW 12.4 % (12.1-15.1) 08/13/22 14:47 Plt Count 205 10^3/cmm (130-400) 08/13/22 14:47 MPV 12.6 fL (7.4-10.4) H 08/13/22 14:47 Neut % (Auto) 69.1 % 08/13/22 14:47 Lymph % (Auto) 20.9 % 08/13/22 14:47 [place] % (Auto) 6.4 % 08/13/22 14:47 Eos % (Auto) 2.8 % 08/13/22 14:47 Baso % (Auto) 0.5 % 08/13/22 14:47 Neut # (Auto) 6.08 10^3/uL (1.8-7.7) 08/13/22 14:47 Lymph # (Auto) 1.8 10^3/uL (0.8-4.8) 08/13/22 14:47 [place] # (Auto) 0.6 10^3/uL (0.2-0.9) 08/13/22 14:47 Eos # (Auto) 0.3 10^3/uL (0.0-0.8) 08/13/22 14:47 Baso # (Auto) 0.0 10^3/uL (0.0-0.1) 08/13/22 14:47 Nucleated RBC % (auto) 0 % 08/13/22 14:47 Nucleated RBCs # 0.0 /100WBC 08/13/22 14:47 Sodium 129 mmol/L (136-145) L 08/13/22 14:47 Potassium 4.5 mmol/L (3.5-5.1) 08/13/22 14:47 Chloride 90 mmol/L (98-107) L 08/13/22 14:47 Carbon Dioxide 25 mmol/L (22-29) 08/13/22 14:47 Anion Gap 18.5 (5-19) 08/13/22 14:47 BUN 5 mg/dL (6-20) L 08/13/22 14:47 Creatinine 0.7 mg/dL (0.5-0.9) 08/13/22 14:47 GFR Calculation 91.3 mL/min (90-130) 08/13/22 14:47 Glucose 474 mg/dL (65-115) H 08/13/22 14:47 Calculated Osmolality 286 mOsm/kg (285-295) 08/13/22 14:47 Lactic Acid 2.2 mmol/L (0.5-2.2) 08/13/22 14:47 Calcium 9.5 mg/dL (8.5-10.5) 08/13/22 14:47 Total Bilirubin 0.2 mg/dL (0.15-1.2) 08/13/22 14:47 AST 19 U/L (0-32) 08/13/22 14:47 ALT 27 U/L (0-33) 08/13/22 14:47 Alkaline Phosphatase 182 U/L (35-105) H 08/13/22 14:47 Total Protein 6.8 g/dL (6.6-8.7) 08/13/22 14:47 Albumin 4.0 g/dL (3.5-5.2) 08/13/22 14:47 Globulin 2.8 g/dL (1.3-4.6) 08/13/22 14:47 Urine Color Straw (Yellow) 08/13/22 14:50 Urine Appearance Clear (CLEAR) 08/13/22 14:50 Urine pH 5 (5-7) 08/13/22 14:50 Ur Specific [place] 1.010 (1.005-1.030) 08/13/22 14:50 Urine Protein Neg (Negative) 08/13/22 14:50 Urine Glucose (UA) 4+ (Normal) H 08/13/22 14:50 Urine Ketones Negative (Negative) 08/13/22 14:50 Urine Blood Neg (Negative) 08/13/22 14:50 Urine Nitrate Negative (Negative) 08/13/22 14:50 Urine Bilirubin Neg (Negative) 08/13/22 14:50 Urine Urobilinogen Norm mg/dL (Negative) 08/13/22 14:50 Ur Leukocyte Esterase Trace (Negative) H 08/13/22 14:50 Urine RBC None /hpf (0-2) 08/13/22 14:50 Urine WBC 0-4 /hpf (0-5) H 08/13/22 14:50 Ur Squamous Epith Cells 0-4 /hpf (0-5) H 08/13/22 14:50 Amorphous Sediment Not Reportable 08/13/22 14:50 Urine Bacteria Trace /hpf (NONE) 08/13/22 14:50 Discharge Plan Discharge Patient Disposition: Home Clinical Impression: Cellulitis, Yeast dermatitis Condition: Stable Prescriptions: New doxycycline hyclate 100 mg tablet 100 mg PO BID 10 Days Qty: 20 0RF fluconazole 150 mg tablet 150 mg PO Q3D Qty: 2 1RF nystatin 100,000 unit/gram cream 1 applic topical BID Qty: 30 0RF hydrocodone-acetaminophen 5-325 mg tablet 1 tab PO Q8H PRN (Reason: pain) Qty: 10 0RF No Action propranolol 10 mg tablet 10 mg PO BID@09,20 metformin 1,000 mg tablet 1,000 mg PO BID@09,20 oxybutynin chloride 10 mg tablet extended release 24hr 10 mg PO DAILY Qty: 30 12RF mirtazapine 45 mg tablet 45 mg PO .HS Qty: 30 2RF Vraylar 3 mg capsule 3 mg PO .HS Qty: 30 2RF citalopram [Celexa] 20 mg tablet 20 mg PO DAILY Qty: 30 2RF prazosin 2 mg capsule 4 mg PO .HS Qty: 60 2RF fluconazole [Diflucan] 150 mg tablet See Rx Instructions .ROUTE .COMPLEX 14 Days Qty: 4 0RF Rx Instructions: Take one tab on day 1, 4, 7, 14. insulin aspart U-100 [Novolog U-100 Insulin aspart] 100 unit/mL solution 10 unit SUBCUT TID Rx Instructions: 10 units with meals. insulin glargine [Lantus U-100 Insulin] 100 unit/mL solution 15 unit SUBCUT DAILY lidocaine (PF) 20 mg/mL (2 %) solution 20 mg peripheral nerve block ONCE Qty: 2 0RF lidocaine (PF) 20 mg/mL (2 %) solution 20 mg peripheral nerve block ONCE Qty: 2 0RF silver nitrate applicators 75-25 % stick 1 applic topical ONCE Qty: 4 0RF tizanidine 4 mg tablet See Rx Instructions .ROUTE .COMPLEX Qty: 90 0RF Dose Instruction: TAKE 1 TABLET BY MOUTH THREE TIMES DAILY NEEDED FOR MUSCLE SPASMS Rx Instructions: TAKE 1 TABLET BY MOUTH THREE TIMES DAILY NEEDED FOR MUSCLE SPASMS tramadol 50 mg tablet 50 mg PO TID PRN (Reason: pain) Qty: 90 0RF cetirizine 10 mg Tablet 10 mg PO DAILY@0900 gabapentin 300 mg Capsule 300 mg PO TID@09,12,20 clindamycin HCl 150 mg capsule 300 mg PO Q6H 10 Days Qty: 80 0RF Discharge Orders: Discharge ED (Routine); Ordered 08/13/22 Ordered By: Meghan Dyson Referrals: Moris Null, [Primary Care Provider] - Discharge Diet: Diabetic Discharge Activity: Increase activity as tolerated Patient Instructions: Cellulitis (ED), Skin Yeast Infection (ED), Opioid Safety Activity Restrictions/Additional Instructions: CT examination today does not show concerns of Rony's-a deep skin infection of the perineum. You still have signs of a superficial cellulitis affecting the skin without signs of an active abscess however, you do still have an open wound from the incision made several days ago. You may wish to keep bandaging on top of this area as it heals. This area will heal by secondary intention-meaning that the inside will need to fill up with granulation tissue before will fully close. This could take a week or 2. I believe the clindamycin is causing your diarrhea and, your blood sugar was nearly 500 here in the emergency room today and I believe the combination of elevated blood sugars and antibiotic use have caused you to have a severe vulvovaginal yeast infection. I am providing you some oral medication to take to help with the symptoms as you will most likely continue to fight a yeast infection while you are on antibiotics and have elevated blood sugars. However, in the meantime I have also provided you a topical yeast medicine for direct comfort and relief of any rubbing and chafing in the area. I would like you to take a couple of days off to closely watch your condition and recommend a follow-up appointment in 48 hours with your primary care doctor. Stand Alone Forms: Work/School Release Coding Level of Care Code ED Match Up Worker for Alcides Biggs
[2022-08-13 14:49] VITALS: RESP 18
[2022-08-13] MEDS: morphine 4 mg/mL SDV 1 mL IVP (14:49)
[2022-08-13 15:03] LABS: Basophils % 0.5 %; Eosinophils # 0.3 10^3/uL (0.0-0.8); Eosinophils % 2.8 %; Hematocrit 45.4 % (37.0-47.0); Hemoglobin 15.2 g/dL (11.5-15.3); Lymphocytes # 1.8 10^3/uL (0.8-4.8); Lymphocytes % 20.9 %; Mean Corpuscular HGB Conc 33.5 g/dL (30.0-36.0); Mean Corpuscular Hemoglobin 28.6 pg (28.0-34.0); Mean Corpuscular Volume 85.5 fl (81-99); Mean Platelet Volume 12.6 fL (7.4-10.4); Monocytes # 0.6 10^3/uL (0.2-0.9); Monocytes % 6.4 %; Neutrophils # 6.08 10^3/uL (1.8-7.7); Neutrophils % 69.1 %; Nucleated Red Blood Cells % 0 %; Platelet Count 205 10^3/cmm (130-400); Red Blood Count 5.31 10^6/uL (4.1-5.3); Red Cell Distribution Width 12.4 % (12.1-15.1); White Blood Count 8.8 10^3/uL (4.0-10.0)
[2022-08-13] MEDS: iohexol 350 mg/mL 500 mL Btl (per mL) IV (15:04)
[2022-08-13 15:32] LABS: Lactic Sepsis W/Reflex 2.2 mmol/L (0.5-2.2)
[2022-08-13 15:33] LABS: Alanine Aminotransferase 27 U/L (0-33); Alkaline Phosphatase 182 U/L (35-105); Anion Gap 18.5 (5-19); Aspartate Amino Transferase 19 U/L (0-32); Blood Urea Nitrogen 5 mg/dL (6-20); Calcium 9.5 mg/dL (8.5-10.5); Carbon Dioxide 25 mmol/L (22-29); Chloride 90 mmol/L (98-107); Globulin 2.8 g/dL (1.3-4.6); Glomerular Filtration Rate 91.3 mL/min (90-130); Glucose 474 mg/dL (65-115); Osmolality Calculated 286 mOsm/kg (285-295); Potassium 4.5 mmol/L (3.5-5.1); Sodium 129 mmol/L (136-145); Total Bilirubin 0.2 mg/dL (0.15-1.2); Total Protein 6.8 g/dL (6.6-8.7)
[2022-08-13 15:39] LABS: Bilirubin Urine Neg (Negative); Blood Urine Neg (Negative); Glucose Urine UA 4+ (Normal); Ketones Urine Negative (Negative); Leukocyte Esterase Urine Trace (Negative); Nitrate Urine Negative (Negative); Protein Urine Neg (Negative); Urine Appearance Clear (CLEAR); Urine Color Straw (Yellow); Urobilinogen Urine Norm (Negative); pH Urine 5 (5-7)
[2022-08-13 15:40] LABS: Add Urine Culture? No; Add Urine Microscopic? YES; Bacteria Urine TRACE /hpf; Squamous Epithelial Cell Urine 0-4 /hpf (0-5); WBC Urine 0-4 /hpf (0-5)
[2022-08-13 16:31] LABS: Reflex Lactate Order REFLEX LACTIC ORDERD
[2022-08-13 16:46] VITALS: BP 161/111
== END 2022-08-13 16:47 | disposition home or self-care (01) ==
PROVIDERS: Emergency Provider Physician Assistant; PCP Family Medicine
DX: L30.8 Other specified dermatitis (principal); L03.314 Cellulitis of groin; Z79.84 Long term (current) use of oral hypoglycemic drugs; Z79.4 Long term (current) use of insulin; F17.210 Nicotine dependence, cigarettes, uncomplicated; E11.9 Type 2 diabetes mellitus without complications; E78.5 Hyperlipidemia, unspecified
CPT/HCPCS: 36415; 72193; 80053; 81001; 83605; 85025; 87040; 96374; 99285; J2270; Q9967

== ENCOUNTER → 2022-08-16 08:46 | Outpatient (BNVA) | payer MEDICAID, SELFPAY | PROVIDERS: PCP Family Medicine; Visit Provider Family Medicine Adult Medicine | DX: E11.9 Type 2 diabetes mellitus without complications (principal); Z79.4 Long term (current) use of insulin; B37.31 Acute candidiasis of vulva and vagina; Z87.19 Personal history of other diseases of the digestive system; Z98.890 Other specified postprocedural states | CPT/HCPCS: 82962 ==

== ENCOUNTER 2022-09-13 18:36 | Emergency (ER) | payer MEDICAID, SELFPAY ==
[2022-09-13 18:42] VITALS: BP 159/106; PULSE 101; RESP 17; TEMP 36.6; O2SAT 96; BMI 45.6
[2022-09-13 18:49] LABS: Glucose Point of Care > 600 mg/dL (70-110)
[2022-09-13 19:27] LABS: Basophils % 0.2 %; Eosinophils % 0.2 %; Hematocrit 48.2 % (37.0-47.0); Lymphocytes % 10.5 %; Mean Corpuscular HGB Conc 33.2 g/dL (30.0-36.0); Mean Corpuscular Hemoglobin 28.7 pg (28.0-34.0); Mean Corpuscular Volume 86.5 fl (81-99); Mean Platelet Volume 12.8 fL (7.4-10.4); Monocytes # 0.1 10^3/uL (0.2-0.9); Monocytes % 0.8 %; Neutrophils # 8.46 10^3/uL (1.8-7.7); Neutrophils % 87.4 %; Nucleated Red Blood Cells % 0 %; Platelet Count 196 10^3/cmm (130-400); Red Blood Count 5.57 10^6/uL (4.1-5.3); Red Cell Distribution Width 12.5 % (12.1-15.1); White Blood Count 9.7 10^3/uL (4.0-10.0)
[2022-09-13 19:44] LABS: Slide Review Slide Review Perform
[2022-09-13 19:51] LABS: Ketone (Acetest) Serum Negative (Negative)
[2022-09-13 21:10] LABS: Alanine Aminotransferase 34 U/L (0-33); Albumin Level 4.1 g/dL (3.5-5.2); Alkaline Phosphatase 135 U/L (35-105); Anion Gap 21.3 (5-19); Aspartate Amino Transferase 35 U/L (0-32); Blood Urea Nitrogen 7 mg/dL (6-20); Calcium 9.1 mg/dL (8.5-10.5); Carbon Dioxide 20 mmol/L (22-29); Chloride 88 mmol/L (98-107); Glomerular Filtration Rate 91.3 mL/min (90-130); Potassium 4.3 mmol/L (3.5-5.1); Sodium 125 mmol/L (136-145); Total Bilirubin 0.3 mg/dL (0.15-1.2); Total Protein 7.1 g/dL (6.6-8.7)
[2022-09-13 21:19] LABS: Osmolality Calculated 299 mOsm/kg (285-295)
[2022-09-13 21:21] VITALS: BP 161/97; PULSE 91; RESP 16; O2SAT 94
--- NOTE | 2022-09-13 21:23 | ED_ITS ---
HPI - General Adult General: Chief complaint: General Medical Stated complaint: High Glucose Time Seen by Provider: 09/13/22 20:57 Source: patient Mode of arrival: ambulatory Limitations: no limitations History of Present Illness: 41-year-old female who is a diabetic states her sugars been running high over the last 2 days it is over 600 here states she been taking her insulin as prescribed states she has had vomiting over the last 2 days as well. She denies any fever denies any pain anywhere denies any worsening improving factors. Associated symptoms: Reports nausea and vomiting; Deny chest pain, dyspnea, headache(s) or rash Review of Systems Const: Denies: fever(s), chills, body aches or change in appetite Eyes: Denies: blurry vision or eye discomfort ENMT: Denies: throat pain or dental pain Card: Denies: chest pain Resp: Denies: dyspnea GI: Reports: nausea and vomiting : Denies: dysuria Musc: Denies: neck pain or back pain Skin/Breast: Denies: rash Neuro: Denies: headache(s) Psych: Denies: depression Ney/Lymph: Denies: easy bruising All/Imm: Denies: urticaria PFSH ED PFSH: Medical History Bipolar 2 disorder DM2 (diabetes mellitus, type 2) Dyslipidemia History of abdominal hernia X2 Hypothyroidism Low back pain with sciatica Major depressive disorder without psychotic features Morbid obesity Nicotine dependence, cigarettes, uncomplicated Post-traumatic stress disorder, chronic Psychiatric care Uncontrolled diabetes mellitus Urgency incontinence Urolithiasis Surgical History H/O: hysterectomy History of hernia repair Hx of appendectomy Hx of knee surgery right Hx of laparoscopic gastric banding Family History Mother CAD (coronary artery disease) Stroke Father CAD (coronary artery disease) Other Cancer Diabetes Hypertension Social History Smoking and tobacco status: current every day smoker cigarettes Packs smoked per day: 1 Years cigarettes smoked: 28 Alcohol intake: never Household members: family Housing: House Marital status: Legally Current occupational status: employed Female Reproductive History: Spontaneous abortions: No Physical Exam Const: COMMON NORMALS: no acute distress, patient oriented x3 and healthy appearing HENMT: COMMON NORMALS: normocephalic and atraumatic HEAD & SCALP: normocephalic and atraumatic Eye: COMMON NORMALS: Equal, round and reactive pupils present and EOMs intact bilaterally PUPIL: Yes Equal, round and reactive pupils present Neck/C-Spine: COMMON NORMALS: full ROM and supple Chest: COMMONS NORMALS: normal inspection of the chest and normal palpation of entire chest wall Resp: COMMON NORMALS: normal respiratory effort, No retractions, No use of accessory muscles and clear to auscultation bilaterally AUSCULTATION: clear to auscultation bilaterally Cardio: COMMON NORMALS: regular rate, regular rhythm and No murmurs present (Cardio) RATE: regular rate RHYTHM: regular rhythm GI: COMMON NORMALS: Normal to inspection, nondistended, normoactive bowel sounds present, Soft to palpation, non-tender and no masses PALPATION: Yes Soft to palpation Extremity: COMMON NORMALS: normal to inspection and full ROM Neuro: COMMON NORMALS: patient oriented x3, moves all extremities and no focal motor deficits Psych: COMMON NORMALS: mental status grossly normal, Normal thought process present and cooperative THOUGHT PROCESS: Normal thought process present Skin: COMMON NORMALS: no rashes or lesions noted and no wounds GENERAL SKIN EXAM: no rashes or lesions noted Course Vital Signs: Vital signs: Vital Signs Temperature 97.9 F 09/13/22 18:42 Pulse Rate 91 09/13/22 21:21 Respiratory Rate 16 09/13/22 21:21 Blood Pressure 161/97 09/13/22 21:21 Pulse Oximetry 94 09/13/22 21:21 Oxygen Delivery Me thod 09/13/22 18:42 MDM - General Adult Medical Decision Making Patient presents here with hyperglycemia she is not in DKA her blood sugars improved she feels improved she is stable for discharge she is to follow-up with her PCP and return if worsening she understands agrees to plan. Lab Data 09/13/22 19:00 09/13/22 19:00 Laboratory Results WBC 9.7 10^3/uL (4.0-10.0) 09/13/22 19:00 RBC 5.57 10^6/uL (4.1-5.3) H 09/13/22 19:00 Hgb 16.0 g/dL (11.5-15.3) H 09/13/22 19:00 Hct 48.2 % (37.0-47.0) H 09/13/22 19:00 MCV 86.5 fl (81-99) 09/13/22 19:00 MCH 28.7 pg (28.0-34.0) 09/13/22 19:00 MCHC 33.2 g/dL (30.0-36.0) 09/13/22 19:00 RDW 12.5 % (12.1-15.1) 09/13/22 19:00 Plt Count 196 10^3/cmm (130-400) 09/13/22 19:00 MPV 12.8 fL (7.4-10.4) H 09/13/22 19:00 Neut % (Auto) 87.4 % 09/13/22 19:00 Lymph % (Auto) 10.5 % 09/13/22 19:00 [place] % (Auto) 0.8 % 09/13/22 19:00 Eos % (Auto) 0.2 % 09/13/22 19:00 Baso % (Auto) 0.2 % 09/13/22 19:00 Neut # (Auto) 8.46 10^3/uL (1.8-7.7) H 09/13/22 19:00 Lymph # (Auto) 1.0 10^3/uL (0.8-4.8) 09/13/22 19:00 [place] # (Auto) 0.1 10^3/uL (0.2-0.9) L 09/13/22 19:00 Eos # (Auto) 0.0 10^3/uL (0.0-0.8) 09/13/22 19:00 Baso # (Auto) 0.0 10^3/uL (0.0-0.1) 09/13/22 19:00 Nucleated RBC % (auto) 0 % 09/13/22 19:00 Nucleated RBCs # 0.0 /100WBC 09/13/22 19:00 Specimen Type Arterial 09/13/22 23:21 Sample Site Radial, left 09/13/22 23:21 ABG pH 7.38 (7.35-7.45) 09/13/22 23:21 ABG pCO2 38.1 mmHg (35-45) 09/13/22 23:21 ABG pO2 75.5 mmHg (80.0-100.0) L 09/13/22 23:21 ABG HCO3 22.4 mmol/L (22-26) 09/13/22 23:21 ABG Base Excess -2.4 mmol/L (-2.0-2.0) L 09/13/22 23:21 [place] Test Pos 09/13/22 23:21 Hematocrit 48.2 % (37-47) H 09/13/22 23:21 O2 Delivery Device None 09/13/22 23:21 Drilling Field Professional ID [email or web address] 09/13/22 23:21 Sodium 125 mmol/L (136-145) L 09/13/22 19:00 Potassium 4.3 mmol/L (3.5-5.1) 09/13/22 19:00 Chloride 88 mmol/L (98-107) L 09/13/22 19:00 Carbon Dioxide 20 mmol/L (22-29) L 09/13/22 19:00 Anion Gap 21.3 (5-19) H 09/13/22 19:00 BUN 7 mg/dL (6-20) 09/13/22 19:00 Creatinine 0.7 mg/dL (0.5-0.9) 09/13/22 19:00 GFR Calculation 91.3 mL/min (90-130) 09/13/22 19:00 Glucose 840 mg/dL (65-115) H* 09/13/22 19:00 POC Glucose 376 mg/dL (70-110) H 09/14/22 00:00 Calculated Osmolality 299 mOsm/kg (285-295) H 09/13/22 19:00 Calcium 9.1 mg/dL (8.5-10.5) 09/13/22 19:00 Total Bilirubin 0.3 mg/dL (0.15-1.2) 09/13/22 19:00 AST 35 U/L (0-32) H 09/13/22 19:00 ALT 34 U/L (0-33) H 09/13/22 19:00 Alkaline Phosphatase 135 U/L (35-105) H 09/13/22 19:00 Total Protein 7.1 g/dL (6.6-8.7) 09/13/22 19:00 Albumin 4.1 g/dL (3.5-5.2) 09/13/22 19:00 Globulin 3.0 g/dL (1.3-4.6) 09/13/22 19:00 Urine Color Straw (Yellow) 09/13/22 22:24 Urine Appearance Clear (CLEAR) 09/13/22 22:24 Urine pH 5 (5-7) 09/13/22 22:24 Ur Specific [place] 1.010 (1.005-1.030) 09/13/22 22:24 Urine Protein Neg (Negative) 09/13/22 22:24 Urine Glucose (UA) 4+ (Normal) H 09/13/22 22:24 Urine Ketones 1+ (Negative) H 09/13/22 22:24 Urine Blood Neg (Negative) 09/13/22 22:24 Urine Nitrate Negative (Negative) 09/13/22 22:24 Urine Bilirubin Neg (Negative) 09/13/22 22:24 Urine Urobilinogen Norm mg/dL (Negative) 09/13/22 22:24 Ur Leukocyte Esterase Negative (Negative) 09/13/22 22:24 Serum Ketones Negative (Negative) 09/13/22 19:00 Discharge Plan Discharge Patient Disposition: Home Clinical Impression: Hyperglycemia, Vomiting Condition: Stable Prescriptions: New ondansetron 4 mg tablet,disintegrating 4 mg PO Q6H PRN (Reason: nausea and vomiting) Qty: 14 0RF No Action propranolol 10 mg tablet 10 mg PO BID@09,20 oxybutynin chloride 10 mg tablet extended release 24hr 10 mg PO DAILY Qty: 30 12RF fluconazole 150 mg tablet 150 mg PO DAILY 7 Days Qty: 7 1RF (DME) glucometer and strips 100 See Rx Instructions .Route .MEDSUPPLY Qty: 1 0RF Rx Instructions: check her glucose 3 times a day and adjust sliding scale insulin fluconazole [Diflucan] 150 mg tablet See Rx Instructions .ROUTE .COMPLEX Qty: 4 0RF Rx Instructions: Take one tab by mouth on Day 1, 4, 7, 10. nystatin 100,000 unit/gram powder 1 applic topical BID Qty: 60 1RF insulin glargine [Lantus U-100 Insulin] 100 unit/mL solution 30 unit SUBCUT DAILY Qty: 10 1RF (DME) diabetic supplies[facility] See Rx Instructions .ROUTE .MEDSUPPLY Qty: 1 3RF Rx Instructions: Diabetic shoes with 3 pair of inserts lidocaine (PF) 20 mg/mL (2 %) solution 20 mg peripheral nerve block ONCE Qty: 2 0RF lidocaine (PF) 20 mg/mL (2 %) solution 20 mg peripheral nerve block ONCE Qty: 2 0RF silver nitrate applicators 75-25 % stick 1 applic topical ONCE Qty: 4 0RF citalopram [Celexa] 20 mg tablet 20 mg PO DAILY Qty: 30 2RF prazosin 2 mg capsule 4 mg PO .HS Qty: 60 2RF Vraylar 3 mg capsule 3 mg PO .HS Qty: 30 2RF ondansetron 8 mg tablet,disintegrating 8 mg PO Q8H PRN (Reason: nausea and vomiting) 5 Days Qty: 15 0RF prednisone 20 mg tablet 60 mg PO DAILY 5 Days Qty: 15 0RF albuterol sulfate 90 mcg/actuation HFA aerosol inhaler 2 inh inhalation Q6H PRN (Reason: shortness of breath or wheezing) Qty: 6.7 0RF tizanidine 4 mg tablet See Rx Instructions .ROUTE .COMPLEX Qty: 90 0RF Dose Instruction: TAKE 1 TABLET BY MOUTH THREE TIMES DAILY NEEDED FOR MUSCLE SPASMS Rx Instructions: TAKE 1 TABLET BY MOUTH THREE TIMES DAILY NEEDED FOR MUSCLE SPASMS tramadol 50 mg tablet 50 mg PO TID PRN (Reason: pain) Qty: 90 0RF insulin aspart U-100 100 unit/mL (3 mL) insulin pen 20 unit SUBCUT TID Qty: 15 1RF Rx Instructions: Take 20 units TID with meals. gabapentin 300 mg capsule 300 mg PO TID@09,12,20 Qty: 90 2RF mirtazapine 45 mg tablet 45 mg PO .HS Qty: 30 2RF cetirizine 10 mg Tablet 10 mg PO DAILY@0900 nystatin 100,000 unit/gram cream 1 applic topical BID Qty: 30 0RF Discharge Orders: Discharge ED (Routine); Ordered 09/14/22 Ordered By: Ajay Coffman Referrals: Moris Null DO [Primary Care Provider] - 1-3 days Discharge Diet: Advance as tolerated Discharge Activity: Resume usual activity Patient Instructions: Diabetic Hyperglycemia (ED) Coding Level of Care Code ED Survey Research Manager for Alcides Biggs
[2022-09-13] MEDS: sodium chloride 0.9% 1,000 ML 999 ML IV ×2 (21:25→22:25)
[2022-09-13] MEDS: insulin regular-human 100 units/1 mL 10 UNIT IVP ×2 (21:25→21:53)
[2022-09-13 21:26] LABS: Glucose 840 mg/dL (65-115)
[2022-09-13 22:27] LABS: Add Urine Microscopic? NO; Charge for UA Resulting for Rev
[2022-09-13 22:41] LABS: Bilirubin Urine Neg (Negative); Blood Urine Neg (Negative); Glucose Urine UA 4+ (Normal); Leukocyte Esterase Urine Negative (Negative); Nitrate Urine Negative (Negative); Protein Urine Neg (Negative); Urine Appearance Clear (CLEAR); Urine Color Straw (Yellow); Urobilinogen Urine Norm (Negative); pH Urine 5 (5-7)
[2022-09-13 22:42] LABS: Ketones Urine 1+ (Negative)
[2022-09-13] MEDS: insulin regular-human 100 units/1 mL 8 UNIT IVP (23:20)
[2022-09-13 23:32] LABS: ABG PCO2 38.1 mmHg (35-45); ABG PH Result 7.38 (7.35-7.45); Arterial Blood Gas Hematocrit 48.2 % (37-47); Base Excess ABG -2.4 mmol/L (-2.0-2.0); Blood Gas Allen Test Pos; Blood Gas Sample Site Radial, left; Blood Gas Sample Type Arterial; HCO3 ABG 22.4 mmol/L (22-26); PO2 ABG 75.5 mmHg (80.0-100.0)
[2022-09-13 23:35] LABS: Glucose Point of Care 450 mg/dL (70-110)
[2022-09-14] VITALS: BP 132/68; PULSE 102; RESP 16; O2SAT 99
[2022-09-14 00:04] LABS: Glucose Point of Care 376 mg/dL (70-110)
[2022-09-15 15:16] LABS: Glucose Point of Care > 600 mg/dL (70-110)
[2022-09-15 15:16] LABS: Glucose Point of Care 468 mg/dL (70-110)
== END 2022-09-14 00:51 | disposition home or self-care (01) ==
PROVIDERS: Emergency Provider Emergency Medicine; PCP Family Medicine
DX: E11.65 Type 2 diabetes mellitus with hyperglycemia (principal); R11.11 Vomiting without nausea; Z79.4 Long term (current) use of insulin; F17.210 Nicotine dependence, cigarettes, uncomplicated; E78.5 Hyperlipidemia, unspecified
CPT/HCPCS: 36415; 36416; 36600; 80053; 81003; 82009; 82803; 82962; 85025; 96361; 96374; 96376; 99284; J1815; J7030

== ENCOUNTER → 2022-10-02 14:52 | Outpatient (BNVA) | payer MEDICAID, SELFPAY | PROVIDERS: PCP Family Medicine; Visit Provider Family Medicine | DX: N39.41 Urge incontinence (principal); N39.0 Urinary tract infection, site not specified | CPT/HCPCS: 81000 ==

== ENCOUNTER 2022-10-24 11:59 | Emergency (ER) | payer MEDICAID, SELFPAY ==
[2022-10-24 12:13] VITALS: BP 154/83; PULSE 89; RESP 18; TEMP 36.3; O2SAT 97
--- NOTE | 2022-10-24 12:21 | ECG_ITS ---
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 Measurements Intervals [place] Rate: 89 P: 144 OR: 192 QRS: -33 QRSD: 94 T: 147 QT: 359 QTc: 439 Interpretive Statements ECTOPIC ATRIAL RHYTHM LEFT AXIS DEVIATION [QRS AXIS < -30] LOW QRS VOLTAGE IN PRECORDIAL LEADS [QRS DEFLECTION < 1.0 mV IN CHEST LEADS] POSSIBLE ANTERIOR MYOCARDIAL INFARCTION , OF INDETERMINATE AGE [30 ms Q WAVE IN V3/V4, OR R < 0.2 mV IN V4] Compared to ECG 04/03/2021 02:15:32 Ectopic atrial rhythm now present Left-axis deviation now present Myocardial infarct finding now present Sinus rhythm no longer present Left anterior fascicular block no longer present Electronically Signed On 10-24-2022 16:57:37 CDT by Jae Calzada M.D. [email or web address]
--- NOTE | 2022-10-24 12:25 | XRR_ITS ---
PROCEDURE INFORMATION: Exam: XR Chest Exam date and time: 10/24/2022 1:11 PM Age: 41 years old Clinical indication: Pain; Angina pectoris; Additional info: Cp TECHNIQUE: Imaging protocol: Radiologic exam of the chest. Views: 1 view. COMPARISON: CR XR chest 1V portable [id number] 04/02/2021 11:56 PM FINDINGS: Lungs: No consolidation. Pleural spaces: Unremarkable. No pleural effusion. No pneumothorax. Heart/Mediastinum: No cardiomegaly. Bones/joints: No acute findings. XR/XR chest 1V portable [id number] IMPRESSION: No acute findings.
--- NOTE | 2022-10-24 12:25 | ECG_ITS ---
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 Measurements Intervals [place] Rate: 90 P: 147 PA: 191 QRS: -37 QRSD: 85 T: 138 QT: 352 QTc: 431 Interpretive Statements ECTOPIC ATRIAL RHYTHM LEFT AXIS DEVIATION [QRS AXIS < -30] LOW QRS VOLTAGE IN PRECORDIAL LEADS [QRS DEFLECTION < 1.0 mV IN CHEST LEADS] POSSIBLE ANTERIOR MYOCARDIAL INFARCTION , OF INDETERMINATE AGE [30 ms Q WAVE IN V3/V4, OR R < 0.2 mV IN V4] Compared to ECG 04/03/2021 02:15:32 Ectopic atrial rhythm now present Left-axis deviation now present Myocardial infarct finding now present Sinus rhythm no longer present Left anterior fascicular block no longer present Electronically Signed On 10-24-2022 16:57:44 CDT by Jae Calzada M.D. [id number]
[2022-10-24 13:26] LABS: Basophils % 0.2 %; Eosinophils # 0.2 10^3/uL (0.0-0.8); Eosinophils % 2.5 %; Hematocrit 46.5 % (37.0-47.0); Hemoglobin 15.5 g/dL (11.5-15.3); Lymphocytes # 1.9 10^3/uL (0.8-4.8); Mean Corpuscular HGB Conc 33.3 g/dL (30.0-36.0); Mean Corpuscular Hemoglobin 28.5 pg (28.0-34.0); Mean Corpuscular Volume 85.6 fl (81-99); Mean Platelet Volume 12.4 fL (7.4-10.4); Monocytes # 0.5 10^3/uL (0.2-0.9); Monocytes % 5.9 %; Neutrophils # 5.71 10^3/uL (1.8-7.7); Neutrophils % 67.9 %; Nucleated Red Blood Cells % 0 %; Platelet Count 185 10^3/cmm (130-400); Red Blood Count 5.43 10^6/uL (4.1-5.3); White Blood Count 8.4 10^3/uL (4.0-10.0)
[2022-10-24 13:46] LABS: Troponin(5th) Baseline 6 ng/L (0-10)
[2022-10-24 13:54] LABS: Alanine Aminotransferase 23 U/L (0-33); Alkaline Phosphatase 118 U/L (35-105); Anion Gap 16.2 (5-19); Aspartate Amino Transferase 16 U/L (0-32); Blood Urea Nitrogen 9 mg/dL (6-20); Calcium 8.8 mg/dL (8.5-10.5); Carbon Dioxide 26 mmol/L (22-29); Chloride 99 mmol/L (98-107); Globulin 2.6 g/dL (1.3-4.6); Glomerular Filtration Rate 134.7 mL/min (90-130); Glucose 377 mg/dL (65-115); NT Pro B Type Natriuretic Pept 36 pg/mL (0-125); Osmolality Calculated 298 mOsm/kg (285-295); Potassium 4.2 mmol/L (3.5-5.1); Sodium 137 mmol/L (136-145); Total Bilirubin 0.5 mg/dL (0.15-1.2); Total Protein 6.6 g/dL (6.6-8.7)
== END 2022-10-24 16:09 | disposition left against medical advice (07) ==
PROVIDERS: Emergency Provider Family Medicine; PCP Family Medicine
DX: Z53.21 Procedure and treatment not carried out due to patient leaving prior to being seen by health care provider (principal)
CPT/HCPCS: 36415; 71045; 80053; 83880; 84484; 85025; 93005

== ENCOUNTER 2022-11-14 15:29 | Emergency (ER) | payer MEDICAID, SELFPAY ==
[2022-11-14 15:32] VITALS: BP 201/142; PULSE 90; RESP 18; TEMP 36.7; O2SAT 96
--- NOTE | 2022-11-14 15:44 | W.ED.GENADLT ---
HPI - General Adult General: Chief complaint: General Medical Stated complaint: HIGH BLOOD SUGAR Time Seen by Provider: 11/14/22 15:40 History of Present Illness: Patient presents to the ER with complaints of high blood pressure. Patient says her blood pressure was over 500 at work and she is feeling horrible and a coworker called 911. Patient is an insulin requiring diabetic to use both Lantus and NovoLog. Patient's admits to not missing any doses. Patient does states she has not eaten anything today. MD complaint: Hyperglycemia Onset (ago): hour(s) (Just prior to calling EMS) Relieving factors: none Exacerbating factors: none Associated symptoms: Reports no associated symptoms Treatments prior to arrival: none Review of Systems General: Reports: 10 or more systems reviewed and unremarkable except in HPI and below PFSH ED PFSH: Medical History Bipolar 2 disorder DM2 (diabetes mellitus, type 2) Dyslipidemia History of abdominal hernia X2 Hypothyroidism Low back pain with sciatica Major depressive disorder without psychotic features Morbid obesity Nicotine dependence, cigarettes, uncomplicated Post-traumatic stress disorder, chronic Psychiatric care Uncontrolled diabetes mellitus Urgency incontinence Urolithiasis Surgical History H/O: hysterectomy History of hernia repair Hx of appendectomy Hx of knee surgery right Hx of laparoscopic gastric banding Family History Mother CAD (coronary artery disease) Stroke Father CAD (coronary artery disease) Other Cancer Diabetes Hypertension Social History Smoking and tobacco status: current every day smoker cigarettes Packs smoked per day: 1 Years cigarettes smoked: 28 Alcohol intake: never Substance/Drug Use: never Household members: family Housing: House Marital status: Legally Current occupational status: employed Female Reproductive History: Spontaneous abortions: No Physical Exam Const: COMMON NORMALS: no acute distress, average body habitus, patient oriented x3, no limitations, healthy appearing, alert and well nourished HENMT: COMMON NORMALS: normocephalic, atraumatic, hearing grossly normal bilaterally, external ears normal, Normal external nose present and moist oral mucous membranes HEAD & SCALP: normocephalic and atraumatic NOSE: Normal external nose present EXTERNAL EAR: Yes external ears normal Eye: COMMON NORMALS: Equal, round and reactive pupils present, EOMs intact bilaterally, conjunctivae normal and no scleral icterus CONJUNCTIVA: Yes conjunctivae normal PUPIL: Yes Equal, round and reactive pupils present Neck/C-Spine: COMMON NORMALS: full ROM, no lymphadenopathy, supple, no meningeal signs, no JVD and Thyroid normal THYROID: Thyroid normal Lymph: LYMPHATIC: no lymphadenopathy noted Chest: COMMONS NORMALS: normal inspection of the chest and normal palpation of entire chest wall Resp: COMMON NORMALS: normal respiratory effort, No retractions, No use of accessory muscles and clear to auscultation bilaterally AUSCULTATION: clear to auscultation bilaterally Cardio: COMMON NORMALS: no JVD, regular rate, S1 normal heart sound present, S2 normal heart sound present, No gallops present (Cardio), No clicks present (Cardio) and No murmurs present (Cardio) RATE: regular rate HEART SOUNDS: S1 normal heart sound present and S2 normal heart sound present GI: COMMON NORMALS: Normal to inspection, nondistended, normoactive bowel sounds present, Soft to palpation, non-tender, No hepatosplenomegaly present and no masses PALPATION: Yes Soft to palpation and Yes No hepatosplenomegaly present : COMMON NORMALS: Yes no CVA tenderness BLADDER/KIDNEY EXAM: Yes no CVA tenderness Back/Pelvis: COMMON NORMALS: no CVA tenderness Neuro: COMMON NORMALS: patient oriented x3 SENSORIUM/ORIENTATION: Yes alert MENINGEAL SIGNS: Yes no meningeal signs Course Vital Signs: Vital signs: Vital Signs Temperature 98.1 F 11/14/22 15:32 Pulse Rate 90 11/14/22 15:32 Respiratory Rate 18 11/14/22 15:32 Blood Pressure 201/142 11/14/22 15:32 Pulse Oximetry 96 11/14/22 15:32 Oxygen Delivery Me thod Room Air 11/14/22 15:32 [facility] - General Adult Medical Decision Making Patient presents to the ER with complaint of hyperglycemia. Patient is an insulin requiring diabetic. Patient states she did take her normal amount of insulin. Lab work was obtained which did show up glucose of 407. Ketones negative. Urine was negative except for 4+ glucose. Patient was given 15 units of IV insulin and 1 L normal saline fluid. Patient sugar trended down over the next couple hours to the 200s. Patient will be discharged home patient is to check her sugar frequently and adjust her insulin as needed. Patient should follow-up with her family practice doctor within 1 week or as needed. Differential Diagnosis Hyperglycemia, urinary tract infection, uncontrolled diabetes Medical Records I reviewed the patient's medical records. Lab Data I reviewed the patient's lab results. 11/14/22 16:00 11/14/22 16:00 Laboratory Results WBC 9.6 10^3/uL (4.0-10.0) 11/14/22 16:00 RBC 5.35 10^6/uL (4.1-5.3) H 11/14/22 16:00 Hgb 15.7 g/dL (11.5-15.3) H 11/14/22 16:00 Hct 45.7 % (37.0-47.0) 11/14/22 16:00 MCV 85.4 fl (81-99) 11/14/22 16:00 MCH 29.3 pg (28.0-34.0) 11/14/22 16:00 MCHC 34.4 g/dL (30.0-36.0) 11/14/22 16:00 RDW 12.9 % (12.1-15.1) 11/14/22 16:00 Plt Count 201 10^3/cmm (130-400) 11/14/22 16:00 MPV 13.0 fL (7.4-10.4) H 11/14/22 16:00 Neut % (Auto) 69.8 % 11/14/22 16:00 Lymph % (Auto) 22.0 % 11/14/22 16:00 [place] % (Auto) 5.3 % 11/14/22 16:00 Eos % (Auto) 2.0 % 11/14/22 16:00 Baso % (Auto) 0.4 % 11/14/22 16:00 Neut # (Auto) 6.71 10^3/uL (1.8-7.7) 11/14/22 16:00 Lymph # (Auto) 2.1 10^3/uL (0.8-4.8) 11/14/22 16:00 [place] # (Auto) 0.5 10^3/uL (0.2-0.9) 11/14/22 16:00 Eos # (Auto) 0.2 10^3/uL (0.0-0.8) 11/14/22 16:00 Baso # (Auto) 0.0 10^3/uL (0.0-0.1) 11/14/22 16:00 Nucleated RBC % (auto) 0 % 11/14/22 16:00 Nucleated RBCs # 0.0 /100WBC 11/14/22 16:00 Sodium 133 mmol/L (136-145) L 11/14/22 16:00 Potassium 4.0 mmol/L (3.5-5.1) 11/14/22 16:00 Chloride 98 mmol/L (98-107) 11/14/22 16:00 Carbon Dioxide 23 mmol/L (22-29) 11/14/22 16:00 Anion Gap 16.0 (5-19) 11/14/22 16:00 BUN 6 mg/dL (6-20) 11/14/22 16:00 Creatinine 0.5 mg/dL (0.5-0.9) 11/14/22 16:00 GFR Calculation 134.7 mL/min (90-130) H 11/14/22 16:00 Glucose 407 mg/dL (65-115) H 11/14/22 16:00 POC Glucose 360 mg/dL (70-110) H 11/14/22 16:50 Calculated Osmolality 291 mOsm/kg (285-295) 11/14/22 16:00 Calcium 9.2 mg/dL (8.5-10.5) 11/14/22 16:00 Magnesium 1.7 mg/dL (1.7-2.3) 11/14/22 16:00 Total Bilirubin 0.3 mg/dL (0.15-1.2) 11/14/22 16:00 AST 16 U/L (0-32) 11/14/22 16:00 ALT 24 U/L (0-33) 11/14/22 16:00 Alkaline Phosphatase 118 U/L (35-105) H 11/14/22 16:00 Total Protein 7.0 g/dL (6.6-8.7) 11/14/22 16:00 Albumin 4.0 g/dL (3.5-5.2) 11/14/22 16:00 Globulin 3.0 g/dL (1.3-4.6) 11/14/22 16:00 Urine Color Yellow (Yellow) 11/14/22 15:48 Urine Appearance Clear (CLEAR) 11/14/22 15:48 Urine pH 6 (5-7) 11/14/22 15:48 Ur Specific Peak 1.015 (1.005-1.030) 11/14/22 15:48 Urine Protein Neg (Negative) 11/14/22 15:48 Urine Glucose (UA) 4+ (Normal) H 11/14/22 15:48 Urine Ketones Negative (Negative) 11/14/22 15:48 Urine Blood Neg (Negative) 11/14/22 15:48 Urine Nitrate Negative (Negative) 11/14/22 15:48 Urine Bilirubin Neg (Negative) 11/14/22 15:48 Urine Urobilinogen Norm mg/dL (Negative) 11/14/22 15:48 Ur Leukocyte Esterase Negative (Negative) 11/14/22 15:48 Serum Ketones Negative (Negative) 11/14/22 16:00 Discharge Plan Discharge Patient Disposition: Home Clinical Impression: Hyperglycemia due to diabetes mellitus Condition: Stable Prescriptions: No Action propranolol 10 mg tablet 10 mg PO BID@09,20 oxybutynin chloride 10 mg tablet extended release 24hr 10 mg PO DAILY Qty: 30 12RF fluconazole 150 mg tablet 150 mg PO DAILY 7 Days Qty: 7 1RF (DME) glucometer and strips 100 See Rx Instructions .Route .MEDSUPPLY Qty: 1 0RF Rx Instructions: check her glucose 3 times a day and adjust sliding scale insulin nystatin 100,000 unit/gram powder 1 applic topical BID Qty: 60 1RF (DME) [facility] .ROUTE .MEDSUPPLY Qty: 1 3RF Rx Instructions: Diabetic shoes with 3 pair of inserts lidocaine (PF) 20 mg/mL (2 %) solution 20 mg peripheral nerve block ONCE Qty: 2 0RF lidocaine (PF) 20 mg/mL (2 %) solution 20 mg peripheral nerve block ONCE Qty: 2 0RF silver nitrate applicators 75-25 % stick 1 applic topical ONCE Qty: 4 0RF citalopram [Celexa] 20 mg tablet 20 mg PO DAILY Qty: 30 2RF prazosin 2 mg capsule 4 mg PO .HS Qty: 60 2RF Vraylar 3 mg capsule 3 mg PO .HS Qty: 30 2RF ondansetron 8 mg tablet,disintegrating 8 mg PO Q8H PRN (Reason: nausea and vomiting) 5 Days Qty: 15 0RF prednisone 20 mg tablet 60 mg PO DAILY 5 Days Qty: 15 0RF albuterol sulfate 90 mcg/actuation HFA aerosol inhaler 2 inh inhalation Q6H PRN (Reason: shortness of breath or wheezing) Qty: 6.7 0RF insulin glargine [Lantus U-100 Insulin] 100 unit/mL solution 40 unit SUBCUT DAILY Qty: 10 6RF fluconazole [Diflucan] 150 mg tablet See Rx Instructions .ROUTE .COMPLEX Qty: 4 0RF Rx Instructions: Take one tab by mouth on Day 1, 4, 7, 10. metronidazole 500 mg tablet 500 mg PO BID Qty: 14 0RF gabapentin 300 mg capsule 300 mg PO TID@09,12,20 Qty: 90 2RF mirtazapine 45 mg tablet 45 mg PO .HS Qty: 30 2RF insulin aspart U-100 [Novolog FlexPen U-100 Insulin] 100 unit/mL (3 mL) insulin pen See Rx Instructions .ROUTE .COMPLEX Qty: 15 0RF Dose Instruction: ADMINISTER 20 UNITS UNDER THE SKIN THREE TIMES DAILY WITH MEALS Rx Instructions: ADMINISTER 20 UNITS UNDER THE SKIN THREE TIMES DAILY WITH MEALS tizanidine 4 mg tablet See Rx Instructions .ROUTE .COMPLEX Qty: 90 0RF Dose Instruction: TAKE 1 TABLET BY MOUTH THREE TIMES DAILY NEEDED FOR MUSCLE SPASMS Rx Instructions: TAKE 1 TABLET BY MOUTH THREE TIMES DAILY NEEDED FOR MUSCLE SPASMS tramadol 50 mg tablet 50 mg PO TID PRN (Reason: pain) Qty: 90 0RF cetirizine 10 mg Tablet 10 mg PO DAILY@0900 nystatin 100,000 unit/gram cream 1 applic topical BID Qty: 30 0RF ondansetron 4 mg tablet,disintegrating 4 mg PO Q6H PRN (Reason: nausea and vomiting) Qty: 14 0RF Discharge Orders: Discharge ED (Routine); Ordered 11/14/22 Ordered By: Dillon Huerta Referrals: Moris Null DO [Primary Care Provider] - 1 week Patient Instructions: Diabetic Hyperglycemia (ED) Activity Restrictions/Additional Instructions: Please check your sugar frequently. Please push clear liquids. Please follow-up with your family practice doctor within 1 week or sooner as needed. Coding Level of Care Code ED Forging Roll Operator for Alcides Biggs
[2022-11-14] MEDS: sodium chloride 0.9% 1,000 ML 999 ML IV (16:04)
[2022-11-14 16:15] LABS: Add Urine Microscopic? NO; Charge for UA Resulting for Rev
[2022-11-14 16:18] LABS: Basophils % 0.4 %; Eosinophils # 0.2 10^3/uL (0.0-0.8); Hematocrit 45.7 % (37.0-47.0); Hemoglobin 15.7 g/dL (11.5-15.3); Lymphocytes # 2.1 10^3/uL (0.8-4.8); Mean Corpuscular HGB Conc 34.4 g/dL (30.0-36.0); Mean Corpuscular Hemoglobin 29.3 pg (28.0-34.0); Mean Corpuscular Volume 85.4 fl (81-99); Monocytes # 0.5 10^3/uL (0.2-0.9); Monocytes % 5.3 %; Neutrophils # 6.71 10^3/uL (1.8-7.7); Neutrophils % 69.8 %; Nucleated Red Blood Cells % 0 %; Platelet Count 201 10^3/cmm (130-400); Red Blood Count 5.35 10^6/uL (4.1-5.3); Red Cell Distribution Width 12.9 % (12.1-15.1); White Blood Count 9.6 10^3/uL (4.0-10.0)
[2022-11-14 16:20] LABS: Ketone (Acetest) Serum Negative (Negative)
[2022-11-14 16:26] LABS: Urine Appearance Clear (CLEAR); Urine Color Yellow (Yellow)
[2022-11-14 16:27] LABS: Bilirubin Urine Neg (Negative); Blood Urine Neg (Negative); Glucose Urine UA 4+ (Normal); Ketones Urine Negative (Negative); Leukocyte Esterase Urine Negative (Negative); Nitrate Urine Negative (Negative); Protein Urine Neg (Negative); Specific Gravity, Urine 1.015 (1.005-1.030); Urobilinogen Urine Norm (Negative); pH Urine 6 (5-7)
[2022-11-14 16:29] LABS: Alanine Aminotransferase 24 U/L (0-33); Alkaline Phosphatase 118 U/L (35-105); Aspartate Amino Transferase 16 U/L (0-32); Blood Urea Nitrogen 6 mg/dL (6-20); Calcium 9.2 mg/dL (8.5-10.5); Carbon Dioxide 23 mmol/L (22-29); Chloride 98 mmol/L (98-107); Glomerular Filtration Rate 134.7 mL/min (90-130); Glucose 407 mg/dL (65-115); Magnesium 1.7 mg/dL (1.7-2.3); Osmolality Calculated 291 mOsm/kg (285-295); Sodium 133 mmol/L (136-145); Total Bilirubin 0.3 mg/dL (0.15-1.2)
[2022-11-14 16:53] LABS: Glucose Point of Care 360 mg/dL (70-110)
[2022-11-14] MEDS: insulin regular-human 100 units/1 mL 15 UNIT IVP (16:58)
[2022-11-14 17:44] LABS: Glucose Point of Care 237 mg/dL (70-110)
== END 2022-11-14 17:55 | disposition home or self-care (01) ==
PROVIDERS: Emergency Provider Emergency Medicine; PCP Family Medicine
DX: E11.65 Type 2 diabetes mellitus with hyperglycemia (principal); Z79.4 Long term (current) use of insulin; F17.210 Nicotine dependence, cigarettes, uncomplicated; E78.5 Hyperlipidemia, unspecified
CPT/HCPCS: 36415; 36416; 80053; 81003; 82009; 82962; 83735; 85025; 96361; 96374; 99284; J1815; J7030

== ENCOUNTER → 2022-12-27 11:37 | Outpatient (BNVA) | payer MEDICAID, SELFPAY | PROVIDERS: PCP Family Medicine; Visit Provider Nurse Practitioner Family | DX: R30.0 Dysuria (principal); N30.01 Acute cystitis with hematuria | CPT/HCPCS: 81000 ==

== ENCOUNTER 2022-12-29 12:27 | Emergency (ER) | payer MEDICAID, SELFPAY ==
[2022-12-29] VITALS (16 sets, daily range): BP systolic 120–184; BP diastolic 72–120; PULSE 89; RESP 16; TEMP 36.5; O2SAT 87–97; BMI 43.9
[2022-12-29 14:17] LABS: Basophils # 0.1 10^3/uL (0.0-0.1); Basophils % 0.4 %; Eosinophils # 0.2 10^3/uL (0.0-0.8); Eosinophils % 1.4 %; Hematocrit 51.6 % (37.0-47.0); Hemoglobin 17.6 g/dL (11.5-15.3); Lymphocytes # 1.4 10^3/uL (0.8-4.8); Lymphocytes % 12.6 %; Mean Corpuscular HGB Conc 34.1 g/dL (30.0-36.0); Mean Corpuscular Hemoglobin 28.8 pg (28.0-34.0); Mean Corpuscular Volume 84.5 fl (81-99); Mean Platelet Volume 12.2 fL (7.4-10.4); Monocytes # 0.5 10^3/uL (0.2-0.9); Monocytes % 4.7 %; Neutrophils # 9.07 10^3/uL (1.8-7.7); Neutrophils % 80.4 %; Nucleated Red Blood Cells % 0 %; Platelet Count 195 10^3/cmm (130-400); Red Blood Count 6.11 10^6/uL (4.1-5.3); Red Cell Distribution Width 12.1 % (12.1-15.1); White Blood Count 11.3 10^3/uL (4.0-10.0)
--- NOTE | 2022-12-29 14:20 | CTR_ITS ---
PROCEDURE INFORMATION: Exam: CT Abdomen And Pelvis With Contrast Exam date and time: 12/29/2022 3:00 PM Age: 42 years old Clinical indication: Abdominal pain; Prior surgery; Surgery date: 6+ months; Surgery type: Lap band, hysto; Additional info: Central abdominal pain, n/v TECHNIQUE: Imaging protocol: Computed tomography of the abdomen and pelvis with contrast. Radiation optimization: All CT scans at this facility use at least one of these dose optimization techniques: automated exposure control; mA and/or kV adjustment per patient size (includes targeted exams where dose is matched to clinical indication); or iterative reconstruction. Contrast material: OMNI 350; Contrast volume: 100 ml; Contrast route: INTRAVENOUS (IV); REPORTING DATA: Count of CT and Cardiac NM exams in prior 12 months: This patient has received 2 known CTs and 0 known cardiac nuclear medicine studies in the 12 months prior to the current study. COMPARISON: CT pelvis w con* [id number] 08/13/2022 3:00 PM RADIATION DOSE METRICS: Total DLP (mGy-cm): 1213.25 FINDINGS: Liver: Hepatic steatosis. Gallbladder and bile ducts: Normal. No calcified stones. No ductal dilation. Pancreas: Normal. No ductal dilation. Spleen: Normal. No splenomegaly. Adrenal glands: Normal. No mass. Kidneys and ureters: Normal. No hydronephrosis. Stomach and bowel: Prominent fluid in the small bowel without dilation suggestive of an enteritis. Constipation. Gastric band seen in place about the upper stomach. Appendix: No evidence of appendicitis. Intraperitoneal space: Unremarkable. No free air. No significant fluid collection. Vasculature: Unremarkable. No abdominal aortic aneurysm. Lymph nodes: Unremarkable. No enlarged lymph nodes. Urinary bladder: Unremarkable as visualized. Reproductive: Unremarkable as visualized. Bones/joints: Unremarkable. No acute fracture. Soft tissues: Unremarkable. CT/CT abdomen pelvis w con* [id number] IMPRESSION: 1. Prominent fluid in the small bowel without dilation suggestive of an enteritis. 2. Constipation. 3. Gastric band seen in place about the upper stomach.
--- NOTE | 2022-12-29 14:22 | ED_ITS ---
HPI - Abdominal Pain General: Chief Complaint: Abdominal Pain Stated Complaint: N/stomach pain Time Seen by Provider: 12/29/22 13:53 History of Present Illness: Patient is a 42-year-old female comes to the ED with abdominal pain. Symptoms started approximately 4 days ago. Patient says she woke up in the middle the night 4 days ago and was having central abdominal pain with nausea and vomiting. Denies any worsening or improving factors. Denies any fevers, diarrhea, blood in the stool or hematuria. Patient does endorse some dysuria. Associated Symptoms: Reports nausea and vomiting; Denies chills, constipation, diarrhea, dysuria, fever(s), hematochezia and hematuria Review of Systems Const: Denies: fever(s), chills or fatigue Eyes: Denies: change in vision or eye discomfort ENMT: Denies: throat pain, odynophagia, nasal discharge or nasal congestion Card: Denies: chest pain, palpitations, edema, swelling of feet/ankles, dyspnea on exertion or orthopnea Resp: Denies: dyspnea, productive cough or non-productive cough GI: Reports: abdominal pain, nausea and vomiting; Denies: diarrhea, constipation or hematochezia : Denies: flank pain, dysuria or hematuria Musc: Denies: neck pain, back pain or extremity swelling Skin/Breast: Denies: rash or new lesions Neuro: Denies: headache(s), numbness in extremities or weakness in extremities PFSH ED PFSH: Medical History Bipolar 2 disorder DM2 (diabetes mellitus, type 2) Dyslipidemia History of abdominal hernia X2 Hypothyroidism Low back pain with sciatica Major depressive disorder without psychotic features Morbid obesity Nicotine dependence, cigarettes, uncomplicated Post-traumatic stress disorder, chronic Psychiatric care Uncontrolled diabetes mellitus Urgency incontinence Urolithiasis Surgical History H/O: hysterectomy History of hernia repair Hx of appendectomy Hx of knee surgery right Hx of laparoscopic gastric banding Family History Mother CAD (coronary artery disease) Stroke Father CAD (coronary artery disease) Other Cancer Diabetes Hypertension Social History Smoking and tobacco status: current every day smoker cigarettes Packs smoked per day: 1 Years cigarettes smoked: 28 Alcohol intake: never Substance/Drug Use: never Household members: family Housing: House Marital status: Legally Current occupational status: employed Female Reproductive History: Spontaneous abortions: No Physical Exam Const: COMMON NORMALS: patient oriented x3 and alert HENMT: COMMON NORMALS: normocephalic HEAD & SCALP: normocephalic MOUTH: Normal oral and palatal mucosa present THROAT: posterior oropharynx normal and uvula midline Neck/C-Spine: COMMON NORMALS: supple GENERAL: Yes normal visual inspection Resp: COMMON NORMALS: normal respiratory effort, No retractions, No use of accessory muscles and clear to auscultation bilaterally AUSCULTATION: clear to auscultation bilaterally Cardio: COMMON NORMALS: regular rate, regular rhythm, S1 normal heart sound present, S2 normal heart sound present, No gallops present (Cardio), No clicks present (Cardio), No murmurs present (Cardio) and Peripheral pulses 2+ throughout RATE: regular rate RHYTHM: regular rhythm HEART SOUNDS: S1 normal heart sound present and S2 normal heart sound present PERIPHERAL PULSES: Peripheral pulses 2+ throughout GI: COMMON NORMALS: Normal to inspection, nondistended, normoactive bowel sounds present, Soft to palpation and no masses PALPATION: Yes Soft to palpation and Yes Tenderness to palpation present (GI) Details: other (Central abdominal tenderness.) : COMMON NORMALS: Yes no CVA tenderness BLADDER/KIDNEY EXAM: Yes no CVA tenderness Back/Pelvis: COMMON NORMALS: no CVA tenderness Extremity: COMMON NORMALS: normal to inspection Neuro: COMMON NORMALS: patient oriented x3 SENSORIUM/ORIENTATION: Yes alert GAIT: Yes Normal gait present Skin: GENERAL SKIN EXAM: dry skin Course Vital Signs: Vital signs: Vital Signs Temperature 97.7 F 12/29/22 12:35 Pulse Rate 89 12/29/22 12:35 Respiratory Rate 16 12/29/22 15:58 Blood Pressure 130/100 12/29/22 17:15 Pulse Oximetry 92 12/29/22 17:15 Oxygen Delivery Me thod Room Air 12/29/22 12:35 MDM - Abdominal Pain Medical Decision Making Patient is a 42-year-old female comes to the ED with abdominal pain. Symptoms started approximately 4 days ago. Patient says she woke up in the middle the night 4 days ago and was having central abdominal pain with nausea and vomiting. Denies any worsening or improving factors. Denies any fevers, diarrhea, blood in the stool or hematuria. Patient does endorse some dysuria. Vitals are stable. Patient has some central abdominal tenderness but rest of exam is benign. White blood cell count 11.3 and glucose was 362. Rest of CBC and CMP are unremarkable. Lipase is unremarkable. Troponins negative. hCG serum negative. CT of abdomen pelvis shows signs of enteritis and constipation but no other acute findings noted. UA was unremarkable. Patient's symptoms improved after 1 L of IV fluids, nausea meds and pain meds. She was able to tolerate p.o. fluids. Patient was also given 6 units of insulin here in the ED. She was stable for discharge home and diagnosed with enteritis, hyperglycemia due to type 2 diabetes and constipation. She was told to follow-up with her PCP within the next week for reevaluation. She was sent home with a prescription for dicyclomine and nausea med. Patient instructed to continue using her insulin at home as prescribed. Strict return to ED precautions given. Patient understood and agreed with plan. Lab Data I reviewed the patient's lab results. 12/29/22 14:10 12/29/22 14:10 Labs/Radiology: Radiology Impressions Abdomen/Pelvis CT 12/29/22 14:20 IMPRESSION: 1. Prominent fluid in the small bowel without dilation suggestive of an enteritis. 2. Constipation. 3. Gastric band seen in place about the upper stomach. Laboratory Results WBC 11.3 10^3/uL (4.0-10.0) H 12/29/22 14:10 RBC 6.11 10^6/uL (4.1-5.3) H 12/29/22 14:10 Hgb 17.6 g/dL (11.5-15.3) H 12/29/22 14:10 Hct 51.6 % (37.0-47.0) H 12/29/22 14:10 MCV 84.5 fl (81-99) 12/29/22 14:10 MCH 28.8 pg (28.0-34.0) 12/29/22 14:10 MCHC 34.1 g/dL (30.0-36.0) 12/29/22 14:10 RDW 12.1 % (12.1-15.1) 12/29/22 14:10 Plt Count 195 10^3/cmm (130-400) 12/29/22 14:10 MPV 12.2 fL (7.4-10.4) H 12/29/22 14:10 Neut % (Auto) 80.4 % 12/29/22 14:10 Lymph % (Auto) 12.6 % 12/29/22 14:10 Maries % (Auto) 4.7 % 12/29/22 14:10 Eos % (Auto) 1.4 % 12/29/22 14:10 Baso % (Auto) 0.4 % 12/29/22 14:10 Neut # (Auto) 9.07 10^3/uL (1.8-7.7) H 12/29/22 14:10 Lymph # (Auto) 1.4 10^3/uL (0.8-4.8) 12/29/22 14:10 [place]ies # (Auto) 0.5 10^3/uL (0.2-0.9) 12/29/22 14:10 Eos # (Auto) 0.2 10^3/uL (0.0-0.8) 12/29/22 14:10 Baso # (Auto) 0.1 10^3/uL (0.0-0.1) 12/29/22 14:10 Nucleated RBC % (auto) 0 % 12/29/22 14:10 Nucleated RBCs # 0.0 /100WBC 12/29/22 14:10 Sodium 133 mmol/L (136-145) L 12/29/22 14:10 Potassium 4.4 mmol/L (3.5-5.1) 12/29/22 14:10 Chloride 93 mmol/L (98-107) L 12/29/22 14:10 Carbon Dioxide 25 mmol/L (22-29) 12/29/22 14:10 Anion Gap 19.4 (5-19) H 12/29/22 14:10 BUN 8 mg/dL (6-20) 12/29/22 14:10 Creatinine 0.7 mg/dL (0.5-0.9) 12/29/22 14:10 GFR Calculation 90.9 mL/min (90-130) 12/29/22 14:10 Glucose 362 mg/dL (65-115) H 12/29/22 14:10 Calculated Osmolality 289 mOsm/kg (285-295) 12/29/22 14:10 Calcium 9.5 mg/dL (8.5-10.5) 12/29/22 14:10 Total Bilirubin 0.5 mg/dL (0.15-1.2) 12/29/22 14:10 AST 18 U/L (0-32) 12/29/22 14:10 ALT 31 U/L (0-33) 12/29/22 14:10 Alkaline Phosphatase 150 U/L (35-105) H 12/29/22 14:10 Troponin T Baseline 6 ng/L (0-10) 12/29/22 14:10 Troponin T 120 Minute 6.00 ng/L (0-10) 12/29/22 16:00 Delta Troponin T 0 ABS# (0-10) 12/29/22 16:00 Total Protein 7.8 g/dL (6.6-8.7) 12/29/22 14:10 Albumin 4.4 g/dL (3.5-5.2) 12/29/22 14:10 Globulin 3.4 g/dL (1.3-4.6) 12/29/22 14:10 Lipase 34 U/L (13-60) 12/29/22 14:10 HCG, Qual Negative (Negative) 12/29/22 14:10 Urine Color Yellow (Yellow) 12/29/22 15:31 Urine Appearance Clear (CLEAR) 12/29/22 15:31 Urine pH 6 (5-7) 12/29/22 15:31 Ur Specific [place] 1.015 (1.005-1.030) 12/29/22 15:31 Urine Protein Trace (Negative) 12/29/22 15:31 Urine Glucose (UA) 4+ (Normal) H 12/29/22 15:31 Urine Ketones 1+ (Negative) H 12/29/22 15:31 Urine Blood Neg (Negative) 12/29/22 15:31 Urine Nitrate Negative (Negative) 12/29/22 15:31 Urine Bilirubin Neg (Negative) 12/29/22 15:31 Urine Urobilinogen Norm mg/dL (Negative) 12/29/22 15:31 Ur Leukocyte Esterase Trace (Negative) H 12/29/22 15:31 Urine RBC 0-4 /hpf (0-2) H 12/29/22 15:31 Urine WBC 5-10 /hpf (0-5) H 12/29/22 15:31 Ur Squamous Epith Cells 15-25 /hpf (0-5) H 12/29/22 15:31 Amorphous Sediment Not Reportable 12/29/22 15:31 Urine Bacteria 1+ /hpf (NONE) H 12/29/22 15:31 Urine Mucus 1+ /hpf 12/29/22 15:31 EKG Data EKG 1: EKG interpretation date: 12/29/22 Interpretation: Sinus rhythm, 69 bpm, no ST segment elevation or depression seen. Discharge Plan Discharge Patient Disposition: Home Clinical Impression: Enteritis, Hyperglycemia due to type 2 diabetes mellitus Constipation Qualifiers: Constipation type: unspecified constipation type Qualified Code(s): K59.00 - Co nstipation, unspecified Condition: Stable Prescriptions: New ondansetron 4 mg tablet,disintegrating 4 mg PO Q8H PRN (Reason: nausea and vomiting) Qty: 20 0RF dicyclomine 20 mg tablet 20 mg PO QID PRN (Reason: Abdominal cramping pain) Qty: 20 0RF No Action (DME) glucometer and strips 100 See Rx Instructions .Route .MEDSUPPLY Qty: 1 0RF Rx Instructions: check her glucose 3 times a day and adjust sliding scale insulin (DME) diabetic supplies, miscellan. Misc See Rx Instructions .ROUTE .MEDSUPPLY Qty: 1 3RF Rx Instructions: Diabetic shoes with 3 pair of inserts Vraylar 3 mg capsule 3 mg PO .HS Qty: 30 2RF citalopram [Celexa] 20 mg tablet 20 mg PO DAILY Qty: 30 2RF prazosin 2 mg capsule 4 mg PO .HS Qty: 60 2RF hydroxyzine HCl 50 mg tablet 50 mg PO .HS Qty: 30 2RF albuterol sulfate 90 mcg/actuation HFA aerosol inhaler 2 inh inhalation Q6H PRN (Reason: shortness of breath or wheezing) Qty: 6.7 0RF tramadol 50 mg tablet 50 mg PO TID PRN (Reason: pain) Qty: 90 0RF gabapentin 300 mg capsule 300 mg PO TID@09,12,20 Qty: 90 2RF cetirizine 10 mg Tablet 10 mg PO DAILY@0900 PRN (Reason: Allergic Symptoms) Lantus U-100 Insulin 100 unit/mL solution 25 unit SUBCUT DAILY tizanidine 4 mg tablet 4 mg PO TID PRN (Reason: Muscle Spasm) Novolog FlexPen U-100 Insulin 100 unit/mL (3 mL) insulin pen 40 unit SUBCUT TID Discharge Orders: Discharge ED (Routine); Ordered 12/29/22 Ordered By: Juan Pablo Dempsey Referrals: Moris Null, [Primary Care Provider] - Discharge Diet: Advance as tolerated and Clear Liquid Discharge Activity: Increase activity as tolerated Patient Instructions: Constipation (DC), Enteritis (ED) Activity Restrictions/Additional Instructions: Follow-up with medical provider as directed in the next 5-7 days for reevaluation. Wear liquid diet for the next 24 hours and slowly advance diet as tolerated. Take [id number] MiraLAX for the next 2 to 3 days to help with bowel movements. Remember to check your blood sugars daily and to take your insulin. Take medications as prescribed. Return to the ER or your medical provider if condition worsens. Please read and understand discharge instructions. Thank you for choosing [facility] for your healthcare needs today. Please realize this is an emergency room and that we are providing you with a medical screening exam and this may not be complete and all inclusive of all the testing and or work up that you may need to determine your ailment or severity of your illness. It is very important that you follow up as instructed or that you return to the Emergency Department should you have concerns or if your condition changes or worsens in any way. Coding Level of Care Code ED Marine Equipment Design Engineer for Alcides Biggs
[2022-12-29] MEDS: morphine 4 mg/mL SDV 1 mL IVP (14:41)
[2022-12-29] MEDS: ondansetron 2 mg/ML SDV 2 mL 4 MG IVP (14:41)
[2022-12-29] MEDS: sodium chloride 0.9% 1,000 ML 999 ML IV (14:43)
[2022-12-29 14:45] LABS: HCG, Serum Qual Negative (Negative)
--- NOTE | 2022-12-29 14:47 | ECG_ITS ---
[facility] Test Date: 2022-12-29 Pat Name: Julissa Avalos Department: Room: Gender: Female Claim Agent: : 1980 Requested By: Juan Pablo Dempsey Order Number: [id number] Andrew MD: Nancy Bowser M.D. Measurements Intervals [place] Rate: 75 P: 69 MT: 188 QRS: 9 QRSD: 94 T: 67 QT: 391 QTc: 439 Interpretive Statements SINUS RHYTHM INDETERMINATE AXIS LOW QRS VOLTAGE IN PRECORDIAL LEADS [QRS DEFLECTION < 1.0 mV IN CHEST LEADS] POSSIBLE ANTERIOR MYOCARDIAL INFARCTION , OF INDETERMINATE AGE [30 ms Q WAVE IN V3/V4, OR R < 0.2 mV IN V4] Compared to ECG 10/24/2022 12:21:49 Indeterminate axis now present Ectopic atrial rhythm no longer present Left-axis deviation no longer present Myocardial infarct finding still present Electronically Signed On 12-29-2022 21:30:56 CDT by Nancy Bowser M.D. [id number]
[2022-12-29 14:48] LABS: Troponin(5th) Baseline 6 ng/L (0-10)
[2022-12-29 14:49] LABS: Alanine Aminotransferase 31 U/L (0-33); Albumin Level 4.4 g/dL (3.5-5.2); Alkaline Phosphatase 150 U/L (35-105); Anion Gap 19.4 (5-19); Aspartate Amino Transferase 18 U/L (0-32); Blood Urea Nitrogen 8 mg/dL (6-20); Calcium 9.5 mg/dL (8.5-10.5); Carbon Dioxide 25 mmol/L (22-29); Chloride 93 mmol/L (98-107); Globulin 3.4 g/dL (1.3-4.6); Glomerular Filtration Rate 90.9 mL/min (90-130); Glucose 362 mg/dL (65-115); Lipase 34 U/L (13-60); Osmolality Calculated 289 mOsm/kg (285-295); Potassium 4.4 mmol/L (3.5-5.1); Sodium 133 mmol/L (136-145); Total Bilirubin 0.5 mg/dL (0.15-1.2); Total Protein 7.8 g/dL (6.6-8.7)
[2022-12-29] MEDS: iohexol 350 mg/mL 500 mL Btl (per mL) IV (15:13)
[2022-12-29 15:53] LABS: Glucose Urine UA 4+ (Normal); Ketones Urine 1+ (Negative); Protein Urine Trace (Negative); Specific Gravity, Urine 1.015 (1.005-1.030); Urine Appearance Clear (CLEAR); Urine Color Yellow (Yellow); pH Urine 6 (5-7)
[2022-12-29 15:54] LABS: Add Urine Microscopic? YES; Bilirubin Urine Neg (Negative); Blood Urine Neg (Negative); Leukocyte Esterase Urine Trace (Negative); Nitrate Urine Negative (Negative); Urobilinogen Urine Norm (Negative)
[2022-12-29 15:55] LABS: Add Urine Culture? No; Bacteria Urine 1+ /hpf; Mucus Urine 1+ /hpf; RBC Urine 0-4 /hpf (0-2); Squamous Epithelial Cell Urine 15-25 /hpf (0-5)
[2022-12-29] MEDS: HYDROmorphone 1 mg/mL INJ 1 mL IVP (15:58)
[2022-12-29] MEDS: insulin regular-human 100 units/1 mL 6 UNIT IVP (16:18)
--- NOTE | 2022-12-29 16:19 | PC.PHAR ---
PT STATES SHE TAKES VENOLIN PRN, NOVOLOG HAS BEEN INCREASED TO 40 UNITS TID CF, LANTUS HAS BEEN DECREASED TO 25 UNITS.
--- NOTE | 2022-12-29 16:49 | ECG_ITS ---
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 Measurements Intervals [place] Rate: 69 P: 66 CA: 195 QRS: -11 QRSD: 88 T: 65 QT: 396 QTc: 426 Interpretive Statements SINUS RHYTHM INDETERMINATE AXIS LOW QRS VOLTAGE IN PRECORDIAL LEADS [QRS DEFLECTION < 1.0 mV IN CHEST LEADS] POSSIBLE ANTERIOR MYOCARDIAL INFARCTION , PROBABLY OLD [30 ms Q WAVE IN V3/V4, OR R < 0.2 mV IN V4] Compared to ECG 12/29/2022 14:47:16 No significant changes Electronically Signed On 12-29-2022 21:34:04 CDT by Nancy Bowser M.D. [id number]
[2022-12-29 17:10] LABS: Troponin 5 2HR Delta 0 ABS# (0-10)
== END 2022-12-29 17:17 | disposition home or self-care (01) ==
PROVIDERS: Emergency Provider Physician Assistant; PCP Family Medicine
DX: K59.00 Constipation, unspecified (principal); K52.9 Noninfective gastroenteritis and colitis, unspecified; E11.65 Type 2 diabetes mellitus with hyperglycemia; Z79.4 Long term (current) use of insulin; F17.210 Nicotine dependence, cigarettes, uncomplicated; E78.5 Hyperlipidemia, unspecified
CPT/HCPCS: 36415; 74177; 80053; 81001; 83690; 84484; 84703; 85025; 93005; 96361; 96374; 96375; 99285; J1170; J1815; J2270; J2405; J7030; Q9967

== ENCOUNTER 2023-01-09 13:36 | Emergency (ER) | payer MEDICAID, SELFPAY ==
[2023-01-09 13:43] VITALS: BP 138/96; PULSE 94; RESP 18; TEMP 36.4; O2SAT 97; BMI 43.4
[2023-01-09 16:23] VITALS: BP 137/93; PULSE 74; RESP 16; TEMP 36.6; O2SAT 94
[2023-01-09 16:32] LABS: HCG, Serum Qual Negative (Negative)
[2023-01-09 16:36] LABS: Alanine Aminotransferase 31 U/L (0-33); Albumin Level 3.9 g/dL (3.5-5.2); Alkaline Phosphatase 124 U/L (35-105); Anion Gap 14.1 (5-19); Aspartate Amino Transferase 22 U/L (0-32); Blood Urea Nitrogen 7 mg/dL (6-20); Calcium 8.6 mg/dL (8.5-10.5); Carbon Dioxide 26 mmol/L (22-29); Chloride 97 mmol/L (98-107); Globulin 2.9 g/dL (1.3-4.6); Glucose 254 mg/dL (65-115); Lipase 57 U/L (13-60); Osmolality Calculated 283 mOsm/kg (285-295); Potassium 4.1 mmol/L (3.5-5.1); Sodium 133 mmol/L (136-145); Total Bilirubin 0.3 mg/dL (0.15-1.2); Total Protein 6.8 g/dL (6.6-8.7)
--- NOTE | 2023-01-09 16:44 | USR_ITS ---
PROCEDURE INFORMATION: Exam: US Abdomen, Limited; Right Upper Quadrant Exam date and time: 01/09/2023 4:48 PM Age: 42 years old Clinical indication: Abdominal pain; Acute; Additional info: Ruq abd pain, neg CT about 2 weeks ago TECHNIQUE: Imaging protocol: Real time ultrasound of the abdomen with image documentation. Limited exam focused on the right upper quadrant. COMPARISON: CT abdomen pelvis w con* [id number] 12/29/2022 3:00 PM FINDINGS: Liver: Diffuse hyperechogenicity of the liver. The liver measures 22.4 cm in length. Gallbladder: 4 mm nonshadowing sludge ball or polyp. No gallstone. The gallbladder wall thickness is normal. Biliary ducts: The common bile duct measures 4.3 mm. Pancreas: Visualized pancreas is unremarkable. Right kidney: Normal. No mass. No hydronephrosis. Intraperitoneal space: No ascites. US/US abdomen limited [id number] IMPRESSION: 1. Enlarged hyperechoic liver, consistent with steatosis/steatohepatitis. 2. 4 mm polyp or sludge ball in the gallbladder. No evidence for acute cholecystitis.
--- NOTE | 2023-01-09 16:48 | ED_ITS ---
HPI - Abdominal Pain General: Chief Complaint: Abdominal Pain Stated Complaint: abd pain, pt thinks gallbladder Time Seen by Provider: 01/09/23 15:56 History of Present Illness: Presents to the ER with complaints of right upper quadrant abdominal pain that severe in nature as patient rates it a 10 out of 10 sharp pain that [place]. Patient has nausea vomiting. Patient thinks it is her gallbladder. Patient had a CT scan of the abdomen and pelvis approximately 2 weeks ago which was negative for any gallbladder issues. Review of Systems General: Reports: 10 or more systems reviewed and unremarkable except in HPI and below PFSH ED PFSH: Medical History Bipolar 2 disorder DM2 (diabetes mellitus, type 2) Dyslipidemia History of abdominal hernia X2 Hypothyroidism Insomnia Low back pain with sciatica Major depressive disorder without psychotic features Morbid obesity Nicotine dependence, cigarettes, uncomplicated Post-traumatic stress disorder, chronic Psychiatric care Uncontrolled diabetes mellitus Urgency incontinence Urolithiasis Surgical History H/O: hysterectomy History of hernia repair Hx of appendectomy Hx of knee surgery right Hx of laparoscopic gastric banding Family History Mother CAD (coronary artery disease) Stroke Father CAD (coronary artery disease) Other Cancer Diabetes Hypertension Social History Smoking and tobacco status: current every day smoker cigarettes Packs smoked per day: 1 Years cigarettes smoked: 28 Alcohol intake: never Substance/Drug Use: never Household members: family Housing: House Marital status: Legally Current occupational status: employed Female Reproductive History: Spontaneous abortions: No Physical Exam Const: COMMON NORMALS: no acute distress, average body habitus, patient oriented x3, no limitations, healthy appearing, alert and well nourished HENMT: COMMON NORMALS: normocephalic, atraumatic, hearing grossly normal bilaterally, external ears normal, Normal external nose present and moist oral mucous membranes HEAD & SCALP: normocephalic and atraumatic NOSE: Normal external nose present EXTERNAL EAR: Yes external ears normal Eye: COMMON NORMALS: Equal, round and reactive pupils present, EOMs intact bilaterally, conjunctivae normal and no scleral icterus CONJUNCTIVA: Yes conjunctivae normal PUPIL: Yes Equal, round and reactive pupils present Neck/C-Spine: COMMON NORMALS: full ROM, no lymphadenopathy, supple, no meningeal signs, no JVD and Thyroid normal THYROID: Thyroid normal Chest: COMMONS NORMALS: normal inspection of the chest and normal palpation of entire chest wall Resp: COMMON NORMALS: normal respiratory effort, No retractions, No use of accessory muscles and clear to auscultation bilaterally AUSCULTATION: clear to auscultation bilaterally Cardio: COMMON NORMALS: no JVD, regular rate, regular rhythm, S1 normal heart sound present, S2 normal heart sound present, No gallops present (Cardio), No clicks present (Cardio), No murmurs present (Cardio) and No rub (Cardio) RATE: regular rate RHYTHM: regular rhythm HEART SOUNDS: S1 normal heart sound present and S2 normal heart sound present GI: COMMON NORMALS: Normal to inspection, nondistended, normoactive bowel sounds present, Soft to palpation, No hepatosplenomegaly present and no masses; negative for non-tender (Tender to palpation right upper quadrant.) PALPATION: Yes Soft to palpation and Yes No hepatosplenomegaly present : COMMON NORMALS: Yes no CVA tenderness BLADDER/KIDNEY EXAM: Yes no CVA tenderness Back/Pelvis: COMMON NORMALS: no CVA tenderness Neuro: COMMON NORMALS: patient oriented x3 SENSORIUM/ORIENTATION: Yes alert MENINGEAL SIGNS: Yes no meningeal signs Course Vital Signs: Vital signs: Vital Signs Temperature 97.9 F 01/09/23 16:23 Pulse Rate 74 01/09/23 16:23 Respiratory Rate 16 01/09/23 16:23 Blood Pressure 137/93 01/09/23 16:23 Pulse Oximetry 94 01/09/23 16:23 Oxygen Delivery Me thod Room Air 01/09/23 16:23 MDM - Abdominal Pain Medical Decision Making Presents to the ER with complaints of right upper quadrant abdominal pain with nausea. Patient rates pain a 10 out of 10. Patient was seen approximately 2 weeks ago and had a negative CT scan today she had a negative ultrasound as well as blood work that was unremarkable. Patient was given Toradol and Zofran which seemed to help with the pain and nausea. Urine did show she might have a slight urinary tract infection however this was a mildly contaminated specimen. Patie nt be treated with antibiotics and mild pain medicine and sent home to follow-up with her PCP that she already has appointment with in approximately 1 week. Differential Diagnosis Likely abdominal pain; Unlikely acute appendicitis, calculus of kidney, constipation, diverticulitis, endometriosis, gastroenteritis, pancreatitis or small bowel obstruction Medical Records I reviewed the patient's medical records. Lab Data I reviewed the patient's lab results. 01/09/23 16:42 01/09/23 16:00 Labs/Radiology: Radiology Impressions Abdomen Ultrasound 01/09/23 16:44 IMPRESSION: 1. Enlarged hyperechoic liver, consistent with steatosis/steatohepatitis. 2. 4 mm polyp or sludge ball in the gallbladder. No evidence for acute cholecystitis. Laboratory Results WBC 10.3 10^3/uL (4.0-10.0) H 01/09/23 16:42 Corrected WBC Cancelled 01/09/23 16:00 RBC 5.68 10^6/uL (4.1-5.3) H 01/09/23 16:42 Hgb 16.6 g/dL (11.5-15.3) H 01/09/23 16:42 Hct 48.0 % (37.0-47.0) H 01/09/23 16:42 MCV 84.5 fl (81-99) 01/09/23 16:42 MCH 29.2 pg (28.0-34.0) 01/09/23 16:42 MCHC 34.6 g/dL (30.0-36.0) 01/09/23 16:42 RDW 11.9 % (12.1-15.1) L 01/09/23 16:42 Plt Count 197 10^3/cmm (130-400) 01/09/23 16:42 MPV 12.0 fL (7.4-10.4) H 01/09/23 16:42 Gran % Cancelled 01/09/23 16:00 Neut % (Auto) 64.7 % 01/09/23 16:42 Lymph % (Auto) 27.3 % 01/09/23 16:42 Elbert % (Auto) 4.8 % 01/09/23 16:42 Eos % (Auto) 2.5 % 01/09/23 16:42 Baso % (Auto) 0.3 % 01/09/23 16:42 Neut # (Auto) 6.65 10^3/uL (1.8-7.7) 01/09/23 16:42 Lymph # (Auto) 2.8 10^3/uL (0.8-4.8) 01/09/23 16:42 Elbert # (Auto) 0.5 10^3/uL (0.2-0.9) 01/09/23 16:42 Eos # (Auto) 0.3 10^3/uL (0.0-0.8) 01/09/23 16:42 Baso # (Auto) 0.0 10^3/uL (0.0-0.1) 01/09/23 16:42 Absolute Gran (auto) Cancelled 01/09/23 16:00 Nucleated RBC % (auto) 0 % 01/09/23 16:42 Nucleated RBCs # 0.0 /100WBC 01/09/23 16:42 Sodium 133 mmol/L (136-145) L 01/09/23 16:00 Potassium 4.1 mmol/L (3.5-5.1) 01/09/23 16:00 Chloride 97 mmol/L (98-107) L 01/09/23 16:00 Carbon Dioxide 26 mmol/L (22-29) 01/09/23 16:00 Anion Gap 14.1 (5-19) 01/09/23 16:00 BUN 7 mg/dL (6-20) 01/09/23 16:00 Creatinine 0.5 mg/dL (0.5-0.9) 01/09/23 16:00 GFR Calculation 134.0 mL/min (90-130) H 01/09/23 16:00 Glucose 254 mg/dL (65-115) H 01/09/23 16:00 Calculated Osmolality 283 mOsm/kg (285-295) L 01/09/23 16:00 Calcium 8.6 mg/dL (8.5-10.5) 01/09/23 16:00 Total Bilirubin 0.3 mg/dL (0.15-1.2) 01/09/23 16:00 AST 22 U/L (0-32) 01/09/23 16:00 ALT 31 U/L (0-33) 01/09/23 16:00 Alkaline Phosphatase 124 U/L (35-105) H 01/09/23 16:00 Total Protein 6.8 g/dL (6.6-8.7) 01/09/23 16:00 Albumin 3.9 g/dL (3.5-5.2) 01/09/23 16:00 Globulin 2.9 g/dL (1.3-4.6) 01/09/23 16:00 Lipase 57 U/L (13-60) 01/09/23 16:00 HCG, Qual Negative (Negative) 01/09/23 16:00 Urine Color Yellow (Yellow) 01/09/23 17:00 Urine Appearance Hazy (CLEAR) A 01/09/23 17:00 Urine pH 6 (5-7) 01/09/23 17:00 Ur Specific [place] 1.020 (1.005-1.030) 01/09/23 17:00 Urine Protein Neg (Negative) 01/09/23 17:00 Urine Glucose (UA) 2+ (Normal) H 01/09/23 17:00 Urine Ketones 1+ (Negative) H 01/09/23 17:00 Urine Blood Neg (Negative) 01/09/23 17:00 Urine Nitrate Negative (Negative) 01/09/23 17:00 Urine Bilirubin Neg (Negative) 01/09/23 17:00 Urine Urobilinogen 1 mg/dL (Negative) H 01/09/23 17:00 Ur Leukocyte Esterase 1+ (Negative) H 01/09/23 17:00 Urine RBC 0-4 /hpf (0-2) H 01/09/23 17:00 Urine WBC 10-15 /hpf (0-5) H 01/09/23 17:00 Ur Squamous Epith Cells 5-10 /hpf (0-5) H 01/09/23 17:00 Amorphous Sediment Not Reportable 01/09/23 17:00 Urine Bacteria 3+ /hpf (NONE) H 01/09/23 17:00 Urine Mucus 3+ /hpf 01/09/23 17:00 Discharge Plan Discharge Patient Disposition: Home Clinical Impression: Intermittent right upper quadrant abdominal pain Urinary tract infection Qualifiers: Urinary tract infection type: acute cystitis Hematuria presence: with hematuria Qualified Code(s): N30.01 - Acute cystitis with hematuria Nausea & vomiting Qualifiers: Vomiting type: unspecified Qualified Code(s): R11.2 - Nausea with vomiting, unspecified Condition: Stable Prescriptions: New ciprofloxacin HCl 500 mg tablet 500 mg PO Q12H Qty: 20 0RF meloxicam 7.5 mg tablet 7.5 mg PO .Twice daily PRN (Reason: pain) Qty: 14 0RF ondansetron HCl 4 mg tablet 4 mg PO TID PRN (Reason: nausea and vomiting) Qty: 14 0RF No Action (DME) glucometer and strips 100 See Rx Instructions .Route .MEDSUPPLY Qty: 1 0RF Rx Instructions: check her glucose 3 times a day and adjust sliding scale insulin (DME) diabetic supplies, miscellan. Misc See Rx Instructions .ROUTE .MEDSUPPLY Qty: 1 3RF Rx Instructions: Diabetic shoes with 3 pair of inserts Vraylar 3 mg capsule 3 mg PO .HS Qty: 30 2RF citalopram [Celexa] 20 mg tablet 20 mg PO DAILY Qty: 30 2RF prazosin 2 mg capsule 4 mg PO .HS Qty: 60 2RF hydroxyzine HCl 50 mg tablet 50 mg PO .HS Qty: 30 2RF eszopiclone [Lunesta] 1 mg tablet 1 mg PO .HS Qty: 30 1RF albuterol sulfate 90 mcg/actuation HFA aerosol inhaler 2 inh inhalation Q6H PRN (Reason: shortness of breath or wheezing) Qty: 6.7 0RF tramadol 50 mg tablet 50 mg PO TID PRN (Reason: pain) Qty: 90 0RF gabapentin 300 mg capsule 300 mg PO TID@09,12,20 Qty: 90 2RF cetirizine 10 mg Tablet 10 mg PO DAILY@0900 PRN (Reason: Allergic Symptoms) Lantus U-100 Insulin 100 unit/mL solution 25 unit SUBCUT DAILY tizanidine 4 mg tablet 4 mg PO TID PRN (Reason: Muscle Spasm) Novolog FlexPen U-100 Insulin 100 unit/mL (3 mL) insulin pen 40 unit SUBCUT TID ondansetron 4 mg tablet,disintegrating 4 mg PO Q8H PRN (Reason: nausea and vomiting) Qty: 20 0RF dicyclomine 20 mg tablet 20 mg PO QID PRN (Reason: Abdominal cramping pain) Qty: 20 0RF Discharge Orders: Discharge ED (Routine); Ordered 01/09/23 Ordered By: Dillon Huerta Referrals: Moris Null DO [Primary Care Provider] - Patient Instructions: Abdominal Pain (ED), Urinary Tract Infection - Women Activity Restrictions/Additional Instructions: Take all your medicine as prescribed as directed. Please keep your appointment with your primary care physician in approximately 1 week as previously scheduled. Coding Level of Care Code ED Banquet Supervisor for Alcides Biggs
[2023-01-09 17:00] LABS: Basophils % 0.3 %; Eosinophils # 0.3 10^3/uL (0.0-0.8); Eosinophils % 2.5 %; Hemoglobin 16.6 g/dL (11.5-15.3); Lymphocytes # 2.8 10^3/uL (0.8-4.8); Lymphocytes % 27.3 %; Mean Corpuscular HGB Conc 34.6 g/dL (30.0-36.0); Mean Corpuscular Hemoglobin 29.2 pg (28.0-34.0); Mean Corpuscular Volume 84.5 fl (81-99); Monocytes # 0.5 10^3/uL (0.2-0.9); Monocytes % 4.8 %; Neutrophils # 6.65 10^3/uL (1.8-7.7); Neutrophils % 64.7 %; Nucleated Red Blood Cells % 0 %; Platelet Count 197 10^3/cmm (130-400); Red Blood Count 5.68 10^6/uL (4.1-5.3); Red Cell Distribution Width 11.9 % (12.1-15.1); White Blood Count 10.3 10^3/uL (4.0-10.0)
[2023-01-09] MEDS: ketorolac 30 mg/mL INJ IVP (17:01)
[2023-01-09] MEDS: ondansetron 2 mg/ML SDV 2 mL 4 MG IVP (17:01)
[2023-01-09 17:30] LABS: Bilirubin Urine Neg (Negative); Blood Urine Neg (Negative); Glucose Urine UA 2+ (Normal); Ketones Urine 1+ (Negative); Nitrate Urine Negative (Negative); Protein Urine Neg (Negative); Urine Appearance Hazy (CLEAR); Urine Color Yellow (Yellow); Urobilinogen Urine 1 mg/dL (Negative); pH Urine 6 (5-7)
[2023-01-09 17:31] LABS: Add Urine Culture? Yes; Add Urine Microscopic? YES; Bacteria Urine 3+ /hpf; Leukocyte Esterase Urine 1+ (Negative); Mucus Urine 3+ /hpf; RBC Urine 0-4 /hpf (0-2)
== END 2023-01-09 17:58 | disposition home or self-care (01) ==
PROVIDERS: Physician Assistant; Emergency Provider Emergency Medicine; PCP Family Medicine
DX: N30.01 Acute cystitis with hematuria (principal); R10.11 Right upper quadrant pain; R11.2 Nausea with vomiting, unspecified; Z79.4 Long term (current) use of insulin; F17.210 Nicotine dependence, cigarettes, uncomplicated; E11.9 Type 2 diabetes mellitus without complications; E78.5 Hyperlipidemia, unspecified
CPT/HCPCS: 76705; 80053; 81001; 83690; 84703; 85025; 87086; 96374; 96375; 99284; J1885; J2405

== ENCOUNTER → 2023-01-25 08:50 | Outpatient (BNVA) | payer MEDICAID, SELFPAY | PROVIDERS: PCP Family Medicine; Visit Provider Surgery | DX: K80.20 Calculus of gallbladder without cholecystitis without obstruction (principal) | CPT/HCPCS: 99203 ==

== ENCOUNTER → 2023-02-27 09:39 | Outpatient (BNVA) | payer MEDICAID, SELFPAY | PROVIDERS: PCP Family Medicine; Visit Provider Family Medicine | DX: R39.9 Unspecified symptoms and signs involving the genitourinary system (principal) | CPT/HCPCS: 81000 ==

== ENCOUNTER 2023-03-01 07:46 | Day surgery (SDC) | payer MEDICAID, SELFPAY ==
[2023-02-28 12:53] VITALS: BMI 43.0
[2023-03-01] VITALS (15 sets, daily range): BP systolic 85–158; BP diastolic 57–104; PULSE 59–81; RESP 14–23; TEMP 36.1–36.3; O2SAT 90–97
[2023-03-01] MEDS: sodium chloride 0.9% 1,000 ML 30 ML IV (08:27)
[2023-03-01 08:28] LABS: Glucose Point of Care 278 mg/dL (70-110)
--- NOTE | 2023-03-01 08:58 | P.ANESASSM_ITS ---
Pre-Anesthetic Assessment Height/Weight: Height 1.63 m Weight 113.852 kg Temp Pulse Resp BP Pulse Ox O2 Del Method 97 F L 78 18 115/81 97 Room Air 03/01/23 07:56 03/01/23 07:56 03/01/23 07:56 03/01/23 07:56 03/01/23 07:56 03/01/23 07:56 Operation Date: 03/01/23 09:50 Proposed Procedures p [id number] lap kirstie K80.20(Not Applicable) - Holden Alarcon DO Familial anesthetic complications: none Was Beta Micheline taken within 24 hours: N/A Was Clonidine taken within 24 hours: N/A Last intake: Intake Last Liquid Date 02/28/23 Last Liquid Time 20:00 Last Solid Date 02/28/23 Last Solid Time 20:00 Social Tobacco and No alcohol Exam alert, oriented x 3 and regular rate & rhythm Airway Submandibular: within normal limits Cervical ROM: within normal limits Mallampati: Class II Dentition: false Pulmonary Asthma and Chronic Obstructive Pulmonary Disease GI Gastroesophageal Reflux Disease Metabolic Diabetes Mellitus, Hyperlipidemia and Morbid Ob[place] [facility] [place] Lower Back Pain and Osteoarthritis/DJD Neuropsych Anxiety and Depression Anesthetic Plan ASA status: 3 Anesthesia: General Medications/Allergies Home Medications Medication Instructions Recorded Confirmed Last Taken Type cetirizine 10 mg tablet 10 mg PO DAILY@0900 PRN Allergic 10/29/20 02/28/23 02/28/23 History Symptoms glucometer and strips 100 #1 ea 08/16/22 02/27/23 Unknown Rx diabetic supplies, miscellan. #1 ea 08/22/22 02/27/23 Unknown Rx albuterol sulfate 90 mcg/actuation 2 inh inhalation Q6H PRN shortness 09/13/22 02/28/23 Unknown Rx aerosol inhaler of breath or wheezing #6.7 grams cariprazine 3 mg capsule (Vraylar) 3 mg PO .HS #30 caps 12/01/22 02/28/23 02/28/23 Rx citalopram 20 mg tablet (Celexa) 20 mg PO DAILY #30 tabs 12/01/22 02/28/23 02/28/23 Rx prazosin 2 mg capsule 4 mg PO .HS #60 caps 12/01/22 02/28/23 02/28/23 Rx insulin glargine 100 unit/mL 25 unit SUBCUT DAILY 12/29/22 02/28/23 02/28/23 History subcutaneous solution (Lantus U-100 Insulin) ondansetron 4 mg disintegrating 4 mg PO Q8H PRN nausea and 12/29/22 02/28/23 02/28/23 Rx tablet vomiting #20 tabs eszopiclone 1 mg tablet (Lunesta) 1 mg PO .HS #30 tabs 01/08/23 02/28/23 02/28/23 Rx insulin aspart U-100 100 unit/mL 40 unit (0.4 mL) SUBCUT TID #30 mL 01/10/23 02/28/23 02/28/23 Rx (3 mL) subcutaneous pen (Novolog FlexPen U-100 Insulin aspart) omeprazole 40 mg capsule,delayed 40 mg PO DAILY #30 caps 01/16/23 02/28/23 02/28/23 Rx release tramadol 50 mg tablet 50 mg PO TID PRN pain #90 tabs 01/24/23 02/28/23 02/28/23 Rx tizanidine 4 mg tablet See Rx Instructions .Route 02/23/23 02/28/23 02/28/23 Rx .COMPLEX #90 tabs fluconazole 150 mg tablet 150 mg PO Q3D 7 days #3 tabs 02/27/23 02/28/23 Unknown Rx (Diflucan) gabapentin 300 mg capsule See Rx Instructions .Route 02/27/23 02/28/23 02/28/23 Rx .COMPLEX #120 caps Allergies Allergy/AdvReac Type Severity Reaction Status Date / Time codeine Allergy Intermediate HALLUCINATI Verified 03/01/23 07:55 ONS latex Allergy Intermediate HIVES Verified 03/01/23 07:55 aspirin Allergy RASH Verified 03/01/23 07:55 oxycodone [From Percocet] Allergy RASH Verified 03/01/23 07:55 topiramate [From Topamax] Allergy RASH Verified 03/01/23 07:55 sumatriptan AdvReac Intermediate SOB; Verified 03/01/23 07:55 WHEEZING; DIZZINESS Current Medications Generic Name Dose Route Start Last Admin Trade Name Freq PRN Reason Stop Dose Admin Sodium Chloride 1,000 mls @ 30 mls/hr 03/01/23 08:00 03/01/23 08:27 Sodium Chloride 0.9% IV 03/02/23 07:59 30 mls/hr .Q24H TOD Administration PFSH Anesthesia Medical History (Updated 01/25/23 @ 09:43 by Holden Alarcon DO) Bipolar 2 disorder DM2 (diabetes mellitus, type 2) Dyslipidemia History of abdominal hernia X2 Hypothyroidism Insomnia Low back pain with sciatica Major depressive disorder without psychotic features Morbid obesity Nicotine dependence, cigarettes, uncomplicated Post-traumatic stress disorder, chronic Psychiatric care Uncontrolled diabetes mellitus Urgency incontinence Urolithiasis Surgical History (Updated 01/25/23 @ 09:43 by Holden Alarcon DO) H/O: hysterectomy History of hernia repair Hx of appendectomy Hx of colonoscopy 2009 Hx of knee surgery right Hx of laparoscopic gastric banding Family History Mother CAD (coronary artery disease) Stroke Father CAD (coronary artery disease) Other Cancer Diabetes Hypertension Social History Smoking and tobacco status: current every day smoker cigarettes Packs smoked per day: 1 Years cigarettes smoked: 28 Alcohol intake: never Substance/Drug Use: never Household members: family Housing: House Marital status: Legally Current occupational status: employed Female Reproductive History Spontaneous abortions: No Data Anesthesia Cardiac Studies: Stress Echocardiogram 05/09/21
--- NOTE | 2023-03-01 09:07 | PM.HP ---
Providers/Chief Complaint Primary Care Provider: Moris Null DO Chief Complaint: K80.20 History of Present Illness Julissa Avalos is a 42 year old female Review of Systems General: Reports: 10 or more systems reviewed and unremarkable except in HPI and below Medications/Allergies Home Medications Medication Instructions Recorded Confirmed Last Taken Type cetirizine 10 mg tablet 10 mg PO DAILY@0900 PRN Allergic 10/29/20 02/28/23 02/28/23 History Symptoms glucometer and strips 100 #1 ea 08/16/22 02/27/23 Unknown Rx diabetic supplies, miscellan. #1 ea 08/22/22 02/27/23 Unknown Rx albuterol sulfate 90 mcg/actuation 2 inh inhalation Q6H PRN shortness 09/13/22 02/28/23 Unknown Rx aerosol inhaler of breath or wheezing #6.7 grams cariprazine 3 mg capsule (Vraylar) 3 mg PO .HS #30 caps 12/01/22 02/28/23 02/28/23 Rx citalopram 20 mg tablet (Celexa) 20 mg PO DAILY #30 tabs 12/01/22 02/28/23 02/28/23 Rx prazosin 2 mg capsule 4 mg PO .HS #60 caps 12/01/22 02/28/23 02/28/23 Rx insulin glargine 100 unit/mL 25 unit SUBCUT DAILY 12/29/22 02/28/23 02/28/23 History subcutaneous solution (Lantus U-100 Insulin) ondansetron 4 mg disintegrating 4 mg PO Q8H PRN nausea and 12/29/22 02/28/23 02/28/23 Rx tablet vomiting #20 tabs eszopiclone 1 mg tablet (Lunesta) 1 mg PO .HS #30 tabs 01/08/23 02/28/23 02/28/23 Rx insulin aspart U-100 100 unit/mL 40 unit (0.4 mL) SUBCUT TID #30 mL 01/10/23 02/28/23 02/28/23 Rx (3 mL) subcutaneous pen (Novolog FlexPen U-100 Insulin aspart) omeprazole 40 mg capsule,delayed 40 mg PO DAILY #30 caps 01/16/23 02/28/23 02/28/23 Rx release tramadol 50 mg tablet 50 mg PO TID PRN pain #90 tabs 01/24/23 02/28/23 02/28/23 Rx tizanidine 4 mg tablet See Rx Instructions .Route 02/23/23 02/28/23 02/28/23 Rx .COMPLEX #90 tabs fluconazole 150 mg tablet 150 mg PO Q3D 7 days #3 tabs 02/27/23 02/28/23 Unknown Rx (Diflucan) gabapentin 300 mg capsule See Rx Instructions .Route 02/27/23 02/28/23 02/28/23 Rx .COMPLEX #120 caps Allergies Allergy/AdvReac Type Severity Reaction Status Date / Time codeine Allergy Intermediate HALLUCINATI Verified 03/01/23 07:55 ONS latex Allergy Intermediate HIVES Verified 03/01/23 07:55 aspirin Allergy RASH Verified 03/01/23 07:55 oxycodone [From Percocet] Allergy RASH Verified 03/01/23 07:55 topiramate [From Topamax] Allergy RASH Verified 03/01/23 07:55 sumatriptan AdvReac Intermediate SOB; Verified 03/01/23 07:55 WHEEZING; DIZZINESS PFSH Acute PFSH: Medical History (Updated 01/25/23 @ 09:43 by Holden Alarcon DO) Bipolar 2 disorder DM2 (diabetes mellitus, type 2) Dyslipidemia History of abdominal hernia X2 Hypothyroidism Insomnia Low back pain with sciatica Major depressive disorder without psychotic features Morbid obesity Nicotine dependence, cigarettes, uncomplicated Post-traumatic stress disorder, chronic Psychiatric care Uncontrolled diabetes mellitus Urgency incontinence Urolithiasis Surgical History (Updated 01/25/23 @ 09:43 by Holden Alarcon DO) H/O: hysterectomy History of hernia repair Hx of appendectomy Hx of colonoscopy 2009 Hx of knee surgery right Hx of laparoscopic gastric banding Family History Mother CAD (coronary artery disease) Stroke Father CAD (coronary artery disease) Other Cancer Diabetes Hypertension Social History Smoking and tobacco status: current every day smoker cigarettes Packs smoked per day: 1 Years cigarettes smoked: 28 Alcohol intake: never Substance/Drug Use: never Household members: family Housing: House Marital status: Legally Current occupational status: employed Female Reproductive History: Spontaneous abortions: No Vitals/I&O/Wt Last Vital Signs Temp 97 F L 03/01/23 07:56 Pulse 78 03/01/23 07:56 Resp 18 03/01/23 07:56 BP 115/81 03/01/23 07:56 Pulse Ox 97 03/01/23 07:56 O2 Del Method Room Air 03/01/23 07:56 Weight last 48 hrs Weight 251 lb A&P Assessment and plan (1) Symptomatic cholelithiasis: Plan Laparoscopic cholecystectomy Attestations Medical Necessity Statement*: Home Coding Level of Care Code Acute Code for Chg Fwd Diagnoses Symptomatic cholelithiasis K80.20
[2023-03-01] MEDS: ceFAZolin 2,000 MG in sodium chloride 0.9% (plus) 50 ML 100 MG IV (09:43)
[2023-03-01] MEDS: lidocaine-epi 2% 20 mL INJ INJECTION (10:16)
--- NOTE | 2023-03-01 10:37 | PM.OP ---
Operative Report Date of procedure: March 01, 2023 Pre-op diagnosis: Symptomatic cholelithiasis Post-op diagnosis: Symptomatic cholelithiasis Extensive intra-abdominal adhesions Procedure done: Laparoscopic cholecystectomy Extensive laparoscopic lysis of adhesions Implants: None Specimens removed/disposition: Gallbladder Surgeon: Holden Alarcon DO Anesthesia: General Estimated blood loss (mL): 5 Complications: None apparent Brief History: This is a very pleasant 42-year-old female whose had multiple abdominal surgeries that presented to my office with symptomatic cholelithiasis. Laparoscopic cholecystectomy was indicated. The risk and benefits were explained and documented Procedure: Patient was wheeled in operative room placed on the OR table in supine position general endotracheal intubation was achieved by department anesthesia. The abdomen was inspected prepped and draped in usual sterile fashion. Timeout was performed. All present were in agreement. A 5 mm incision was placed over Bell's point in the left upper quadrant and Veress needle was used to bring intra-abdominal insufflation to 15 mmHg. A 5 mm trocar was then placed through this incision using Optiview. There were very extensive adhesions throughout the abdomen. I put a 10 mm trocar just proximal to the previous trocar. I then got the laparoscopic Enseal and spent greater than 30 minutes lysing adhesions to bring down enough of the adhesions to see the gallbladder while also avoiding the Lap-Band tubing. Another 5 mm trocar was placed just medial to the 10 mm trocar. The gallbladder was grasped and elevated the triangle ONEL was isolated bluntly. The cystic duct was triply clipped medially and singly clipped distally. The cystic artery was then doubly clipped medially and singly clipped distally. The cystic duct and cystic artery were then transected with Metzenbaum scissors. Electrocautery was then used to take the gallbladder off the liver bed. Gallbladder was removed via an Endo Catch bag. The liver bed was inspected irrigated and suctioned. Hemostasis was noted. All ports were removed. Skin was closed with 4-0 Monocryl in an interrupted subcuticular fashion. Skin glue was applied. Patient tolerated procedure well.
[2023-03-01] MEDS: ondansetron 2 mg/ML SDV 2 mL 4 MG IVP ×2 (10:57→11:29)
[2023-03-01] MEDS: fentaNYL 50 mcg/mL INJ 2mL IVP ×2 (11:06→11:25)
--- NOTE | 2023-03-01 14:02 | ANE.PACU2 ---
Inpatient post-anesthesia follow up: Airway intact: Yes Vital signs: Temperature 97.3 F Pulse Rate 81 Respiratory Rate 18 Blood Pressure 128/87 Pulse Oximetry 94 Oxygen Delivery Me thod Nasal Cannula Oxygen Flow Rate 4 Fraction of Inspir ed Oxygen Hydration adequate: Yes Nausea and vomiting: No Pain level: 3 Mental status: Baseline
== END 2023-03-01 12:30 | disposition home or self-care (01) ==
PROVIDERS: PCP Family Medicine; Visit Provider Surgery
PROC: 0FT44ZZ Resection of Gallbladder, Percutaneous Endoscopic Approach (ICD-10-PCS; CPT 47562; principal; 2023-03-01 09:40)
DX: K81.1 Chronic cholecystitis (principal); K66.0 Peritoneal adhesions (postprocedural) (postinfection); K21.9 Gastro-esophageal reflux disease without esophagitis; J44.9 Chronic obstructive pulmonary disease, unspecified; E11.9 Type 2 diabetes mellitus without complications; E78.5 Hyperlipidemia, unspecified; E66.01 Morbid (severe) obesity due to excess calories; Z68.41 Body mass index [BMI] 40.0-44.9, adult; Z79.4 Long term (current) use of insulin; Z79.84 Long term (current) use of oral hypoglycemic drugs; F17.210 Nicotine dependence, cigarettes, uncomplicated
CPT/HCPCS: 47562; 36416; 82962; 88304; J0690; J1100; J1170; J1200; J2250; J2405; J2704; J2710; J3010; J3490; J7030

== ENCOUNTER 2023-03-06 17:28 | Emergency (ER) | payer MEDICAID, SELFPAY ==
[2023-03-06 17:41] VITALS: BP 123/81; PULSE 62; RESP 16; TEMP 37.2; O2SAT 95; BMI 43.4
--- NOTE | 2023-03-06 18:34 | W.ED.ABDPA2 ---
HPI - Abdominal Pain General: Chief Complaint: Abdominal Pain Stated Complaint: abd pain, gallbladder surgery on the 14th Time Seen by Provider: 03/06/23 18:31 Source: patient Mode of arrival: ambulatory Limitations: no limitations History of Present Illness: Patient is a nice 42-year-old female who presents to ED today with a complaint of abdominal pain. Patient underwent cholecystectomy by Dr. Alarcon 5 days ago. She states gallbladder was removed secondary to biliary colic-like symptoms and findings of a gallbladder polyp/sludge ball. Patient states since the surgery she has had progressively worsening abdominal pain. She states she has been taking her nausea medications but states she could not fill her hydrocodone because [facility] told her they were out of this medication. She states she has not been able to eat since the surgery stating that she vomits everything up. Looking at Dr. Alarcon's operative note it looks like he also performed extensive lysis of adhesions. Patient has a history of lap band. Patient has been having normal bowel movements and passing flatulence. She states she has not been running fevers although reports she did feel sweaty while waiting in the waiting room. She has not noticed any yellowing to her skin or eyes. MD elicited complaint: abdominal pain Onset (ago): day(s) Pain Consistency: constant Location: RUQ Severity: severe Quality: sharp Radiation: none Migration to: no migration Exacerbating factors: eating and movement Relieving factors: nothing Context: recent surgery/procedure Associated Symptoms: Reports nausea and vomiting; Denies change in bowel habits, chills, diarrhea, dysuria, fever(s), hematochezia, hematemesis and melena Related Data: Patient : No Review of Systems Const: Reports: other (reports she was sweating while in waiting room); Denies: fever(s), chills, body aches, fatigue or malaise Card: Denies: chest pain, palpitations, swelling of feet/ankles, lightheadedness or dyspnea on exertion Resp: Denies: dyspnea GI: Reports: abdominal pain, nausea and vomiting; Denies: hematemesis, diarrhea, change in bowel habits, hematochezia or melena : Denies: flank pain, difficulty voiding, dysuria, urinary frequency, urinary urgency or urinary hesitancy Musc: Denies: neck pain, back pain, extremity pain or joint pain Skin/Breast: Denies: rash Neuro: Denies: headache(s), numbness in extremities, weakness in extremities, sensory changes or dizziness PFSH ED PFSH: Medical History Bipolar 2 disorder DM2 (diabetes mellitus, type 2) Dyslipidemia History of abdominal hernia X2 Hypothyroidism Insomnia Low back pain with sciatica Major depressive disorder without psychotic features Morbid obesity Nicotine dependence, cigarettes, uncomplicated Post-traumatic stress disorder, chronic Psychiatric care Uncontrolled diabetes mellitus Urgency incontinence Urolithiasis Surgical History H/O: hysterectomy History of hernia repair Hx of appendectomy Hx of colonoscopy 2010 Hx of knee surgery right Hx of laparoscopic gastric banding Family History Mother CAD (coronary artery disease) Stroke Father CAD (coronary artery disease) Other Cancer Diabetes Hypertension Social History Smoking and tobacco status: current every day smoker cigarettes Packs smoked per day: 1 Years cigarettes smoked: 28 Alcohol intake: never Substance/Drug Use: never Household members: family Housing: House Marital status: Legally Current occupational status: employed Female Reproductive History: Spontaneous abortions: No Physical Exam Const: COMMON NORMALS: no acute distress, patient oriented x3, no limitations and alert GENERAL APPEARANCE: cooperative NUTRITIONAL APPEARANCE: obese ORIENTATION/CONSCIOUSNESS: Yes awake, Yes oriented to person, Yes oriented to place and Yes oriented to time Resp: COMMON NORMALS: normal respiratory effort and clear to auscultation bilaterally AUSCULTATION: clear to auscultation bilaterally Cardio: COMMON NORMALS: regular rate and regular rhythm RATE: regular rate RHYTHM: regular rhythm GI: INSPECTION: Yes other (lap incisions healing okay; central abdominal ecchymosis) AUSCULTATION: Yes normoactive bowel sounds PALPATION: Yes Tenderness to palpation present (GI) (diffusely but max tenderness to RUQ), Yes Guarding due to palpation present (GI) and No Rigid due to palpation : COMMON NORMALS: Yes no CVA tenderness BLADDER/KIDNEY EXAM: Yes no CVA tenderness Back/Pelvis: COMMON NORMALS: no CVA tenderness, thoracic and lumbar spine normal to inspection, no thoracic nor lumbar tenderness and thoraco-lumbar ROM normal Extremity: COMMON NORMALS: normal to inspection GENERAL: Yes normal exam except as noted Neuro: EMELINA COMA SCALE: document GCS findings [place] coma scale eye opening: Spontaneous [place] coma scale verbal response: Orientated Emelina coma scale motor response: Obey commands [place] coma scale total score: 15 COMMON NORMALS: patient oriented x3, moves all extremities, no focal motor deficits and no sensory deficits noted SENSORIUM/ORIENTATION: Yes alert, Yes oriented to person, Yes oriented to place and Yes oriented to time Course Vital Signs: Vital signs: Vital Signs Temperature 98.9 F 03/06/23 17:41 Pulse Rate 69 03/06/23 21:00 Respiratory Rate 18 03/06/23 19:48 Blood Pressure 118/78 03/06/23 21:00 Pulse Oximetry 93 03/06/23 21:00 Oxygen Delivery Me thod Room Air 03/06/23 21:00 MDM - Abdominal Pain Medical Decision Making Patient's vital signs are stable. Her blood work overall unremarkable. Her liver enzymes as well as her lipase are not concerning for complication. CT scan showing normal postop findings within her gallbladder fossa. Radiologist did comment on some diffuse mild subcutaneous edema anteriorly over her abdomen with mild cellulitis needing to be ruled out. Spoke with Dr. Huerta in regards to findings. We agreed to place patient on oral Keflex. We will have case management get her set up for follow-up with Dr. Alarcon. Return ED precautions given. I will give her a new prescription for pain meds with recommendation she take to a different pharmacy in order to fill. I will give her pain medications for this evening as pharmacies are closed. Lab Data 03/06/23 18:54 03/06/23 18:54 Labs/Radiology: Radiology Impressions Abdomen/Pelvis CT 03/06/23 18:41 IMPRESSION: 1. The patient has had an interval cholecystectomy. Small amount of fluid in the gallbladder fossa with small amount of pneumoperitoneum and small amount of soft tissue emphysema, likely due to recent surgery. 2. Diffuse, mild subcutaneous edema anteriorly over the abdomen. This may also be secondary to recent surgery. Mild cellulitis cannot be ruled out. Recommend clinical correlation. 3. Stable moderate fatty infiltration of the liver. ADDENDUM: 03/06/232036 Urgent results were discussed with Idalmis Ziegler on 03/06/2023 at 8:36 PM CDT. Laboratory Results WBC 12.01 10^3/uL (3.29-11.43) H 03/06/23 18:54 RBC 5.26 10^6/uL (3.85-5.65) 03/06/23 18:54 Hgb 15.20 g/dL (11.27-16.99) 03/06/23 18:54 Hct 44.7 % (36-47) 03/06/23 18:54 MCV 85.0 fl (85-98) 03/06/23 18:54 MCH 28.9 pg (27-33) 03/06/23 18:54 MCHC 34.0 g/dL (30-55) 03/06/23 18:54 RDW 12.3 % (12.1-15.1) 03/06/23 18:54 Plt Count 230 10^3/cmm (157-399) 03/06/23 18:54 MPV 12.4 fL (7.4-10.4) H 03/06/23 18:54 Neut % (Auto) 63.9 % 03/06/23 18:54 Lymph % (Auto) 23.6 % 03/06/23 18:54 [place] % (Auto) 5.9 % 03/06/23 18:54 Eos % (Auto) 5.7 % 03/06/23 18:54 Baso % (Auto) 0.4 % 03/06/23 18:54 Neut # (Auto) 7.67 10^3/uL (1.8-7.7) 03/06/23 18:54 Lymph # (Auto) 2.8 10^3/uL (0.8-4.8) 03/06/23 18:54 [place] # (Auto) 0.7 10^3/uL (0.2-0.9) 03/06/23 18:54 Eos # (Auto) 0.7 10^3/uL (0.0-0.8) 03/06/23 18:54 Baso # (Auto) 0.1 10^3/uL (0.0-0.1) 03/06/23 18:54 Nucleated RBC % (auto) 0 % 03/06/23 18:54 Nucleated RBCs # 0.0 /100WBC 03/06/23 18:54 Sodium 133 mmol/L (136-145) L 03/06/23 18:54 Potassium 4.1 mmol/L (3.5-5.1) 03/06/23 18:54 Chloride 96 mmol/L (98-107) L 03/06/23 18:54 Carbon Dioxide 29 mmol/L (22-29) 03/06/23 18:54 Anion Gap 12.1 (5-19) 03/06/23 18:54 BUN 4 mg/dL (6-20) L 03/06/23 18:54 Creatinine 0.5 mg/dL (0.5-0.9) 03/06/23 18:54 GFR Calculation 134.0 mL/min (90-130) H 03/06/23 18:54 Glucose 363 mg/dL (65-115) H 03/06/23 18:54 Calculated Osmolality 288 mOsm/kg (285-295) 03/06/23 18:54 Calcium 8.9 mg/dL (8.5-10.5) 03/06/23 18:54 Total Bilirubin 0.3 mg/dL (0.15-1.2) 03/06/23 18:54 AST 28 U/L (0-32) 03/06/23 18:54 ALT 36 U/L (0-33) H 03/06/23 18:54 Alkaline Phosphatase 169 U/L (35-105) H 03/06/23 18:54 Total Protein 6.9 g/dL (6.6-8.7) 03/06/23 18:54 Albumin 3.8 g/dL (3.5-5.2) 03/06/23 18:54 Globulin 3.1 g/dL (1.3-4.6) 03/06/23 18:54 Lipase 18 U/L (13-60) 03/06/23 18:54 HCG, Qual Negative (Negative) 03/06/23 18:54 Urine Color Yellow (Yellow) 03/06/23 19:16 Urine Appearance Clear (CLEAR) 03/06/23 19:16 Urine pH 8 (5-7) H 03/06/23 19:16 Ur Specific Bernie 1.010 (1.005-1.030) 03/06/23 19:16 Urine Protein Trace (Negative) 03/06/23 19:16 Urine Glucose (UA) 4+ (Normal) H 03/06/23 19:16 Urine Ketones Negative (Negative) 03/06/23 19:16 Urine Blood Neg (Negative) 03/06/23 19:16 Urine Nitrate Negative (Negative) 03/06/23 19:16 Urine Bilirubin Neg (Negative) 03/06/23 19:16 Prot Sulfosalicylic Acd Negative (Negative) 03/06/23 19:16 Urine Urobilinogen 1 mg/dL (Negative) H 03/06/23 19:16 Ur Leukocyte Esterase Trace (Negative) H 03/06/23 19:16 Urine RBC None /hpf (0-2) 03/06/23 19:16 Urine WBC 0-4 /hpf (0-5) H 03/06/23 19:16 Ur Squamous Epith Cells 0-4 /hpf (0-5) H 03/06/23 19:16 Amorphous Sediment Not Reportable 03/06/23 19:16 Urine Bacteria Trace /hpf (NONE) 03/06/23 19:16 All radiology interpretation(s) finalized by discharge Discharge Plan Discharge Patient Disposition: Home Clinical Impression: Postoperative abdominal pain, Cellulitis of abdominal wall Condition: Stable Prescriptions: New hydrocodone-acetaminophen 5-325 mg tablet 1 tab PO Q6H PRN (Reason: pain) Qty: 14 0RF cephalexin 500 mg capsule 500 mg PO Q6H 7 Days Qty: 28 0RF No Action (DME) glucometer and strips 100 See Rx Instructions .Route .MEDSUPPLY Qty: 1 0RF Rx Instructions: check her glucose 3 times a day and adjust sliding scale insulin (DME) diabetic supplies, miscellan. Misc See Rx Instructions .ROUTE .MEDSUPPLY Qty: 1 3RF Rx Instructions: Diabetic shoes with 3 pair of inserts gabapentin 300 mg capsule See Rx Instructions .ROUTE .COMPLEX Qty: 120 5RF Dose Instruction: TAKE 1 CAPSULE BY MOUTH THREE TIMES DAILY AT 9 AM, NOON, AND 8 PM Rx Instructions: Take 1 capsule by mouth at 9a and 12p and two capsules at bedtime. fluconazole [Diflucan] 150 mg tablet 150 mg PO Q3D 7 Days Qty: 3 0RF albuterol sulfate 90 mcg/actuation HFA aerosol inhaler 2 inh inhalation Q6H PRN (Reason: shortness of breath or wheezing) Qty: 6.7 0RF eszopiclone [Lunesta] 3 mg tablet 3 mg PO .HS Qty: 30 2RF Vraylar 3 mg capsule 3 mg PO .HS Qty: 30 2RF citalopram [Celexa] 20 mg tablet 20 mg PO DAILY Qty: 30 2RF prazosin 2 mg capsule 4 mg PO .HS Qty: 60 2RF omeprazole 40 mg capsule,delayed release(DR/EC) 40 mg PO DAILY Qty: 30 2RF insulin aspart U-100 [Novolog FlexPen U-100 Insulin] 100 unit/mL (3 mL) insulin pen 40 unit SUBCUT TID Qty: 30 6RF tramadol 50 mg tablet 50 mg PO TID PRN (Reason: pain) Qty: 90 5RF Hold Instructions: Resume on 03/06/23. tizanidine 4 mg tablet See Rx Instructions .ROUTE .COMPLEX Qty: 90 0RF Dose Instruction: TAKE 1 TABLET BY MOUTH THREE TIMES DAILY NEEDED FOR MUSCLE SPASMS Rx Instructions: TAKE 1 TABLET BY MOUTH THREE TIMES DAILY NEEDED FOR MUSCLE SPASMS cetirizine 10 mg Tablet 10 mg PO DAILY@0900 PRN (Reason: Allergic Symptoms) insulin glargine [Lantus U-100 Insulin] 100 unit/mL solution 25 unit SUBCUT DAILY ondansetron 4 mg tablet,disintegrating 4 mg PO Q8H PRN (Reason: nausea and vomiting) Qty: 20 0RF hydrocodone-acetaminophen 10-325 mg tablet 1 tab PO Q6H PRN (Reason: pain) Qty: 20 0RF Rx Instructions: May take half of a tab at a time Dulcolax Stool Softener (dss) 100 mg capsule 100 mg PO BID Qty: 14 0RF hydrocodone-acetaminophen 5-325 mg tablet 1 tab PO Q6H PRN (Reason: pain) Qty: 10 0RF Discharge Orders: Discharge ED (Routine); Ordered 03/06/23 Ordered By: Idalmis Gilbert Referrals: Moris Null DO [Primary Care Provider] - Patient Instructions: Abdominal Pain (ED), Opioid Safety, Pain Management Activity Restrictions/Additional Instructions: We will have case management reach out to you and try to get you a sooner appointment with your surgeon Dr. Alarcon. Have written you a new prescription for pain medications that you can take to a different pharmacy to fill. We will place you on antibiotics as your CT scan showed some possible mild cellulitis starting over your abdomen. You need to return to the emergency department for worsening abdominal pain, repetitive episodes of vomiting, fevers, generally feeling worse or unwell, or any other concerns you may have. I hope you begin to feel better soon. Coding Level of Care Code ED Benzene Still Utility Operator for Alcides Biggs
--- NOTE | 2023-03-06 18:41 | CTR_ITS ---
PROCEDURE INFORMATION: Exam: CT Abdomen And Pelvis With Contrast Exam date and time: 03/06/2023 7:01 PM Age: 42 years old Clinical indication: Abdominal pain; Acute; Prior surgery; Surgery date: 3-7 days post-operative; Surgery type: Choley 5 days agosex; Additional info: Severe abdominal pain, n/v, cholecystectomy 5 days ago TECHNIQUE: Imaging protocol: Computed tomography of the abdomen and pelvis with contrast. Radiation optimization: All CT scans at this facility use at least one of these dose optimization techniques: automated exposure control; mA and/or kV adjustment per patient size (includes targeted exams where dose is matched to clinical indication); or iterative reconstruction. Contrast material: OMNI 350; Contrast volume: 100 ml; Contrast route: INTRAVENOUS (IV); REPORTING DATA: Count of CT and Cardiac NM exams in prior 12 months: This patient has received 3 known CTs and 0 known cardiac nuclear medicine studies in the 12 months prior to the current study. COMPARISON: CT abdomen pelvis w con* [id number] 12/29/2022 3:00 PM RADIATION DOSE METRICS: Total DLP (mGy-cm): 1156.03 FINDINGS: Lungs: Visualized lungs are clear. Pleural spaces: No pleural effusion. Heart: Visualized portions of the heart are unremarkable. Liver: Stable moderate enlargement of the liver measuring 23 cm in length (series 5, image 35). Diffuse, moderately decreased density in the liver. Findings are stable and consistent with moderate fatty infiltration. Gallbladder and bile ducts: The patient has had an interval cholecystectomy. Small amount of fluid in the gallbladder fossa with small amount of pneumoperitoneum and small amount of soft tissue emphysema, likely due to recent surgery. No biliary ductal dilatation. Pancreas: The pancreas is unremarkable. No pancreatic ductal dilatation. Spleen: The spleen is unremarkable. Adrenal glands: The right and left adrenal glands are unremarkable. Kidneys and ureters: The right and left kidneys are unremarkable. The right and left ureters are unremarkable. Stomach and bowel: Stable findings consistent with a prior gastric banding procedure. No acute abnormality in the small bowel. No acute abnormality in the colon. Appendix: Stable changes consistent with a previous appendectomy. Intraperitoneal space: No ascites. No loculated fluid collections to suggest an abscess. See also under gallbladder and bile ducts . Vasculature: Stable mild atherosclerotic calcifications in the visualized arteries. No evidence for aortic aneurysm or aortic dissection. Hepatic veins, portal veins, splenic vein, and SMV are patent. Lymph nodes: No lymphadenopathy. Urinary bladder: The bladder is incompletely filled, which can limit evaluation. No focal abnormality in the bladder however. Reproductive: Stable changes consistent with a previous hysterectomy and bilateral oophorectomy. Bones/joints: Degenerative changes in the spine and hips. Soft tissues: Diffuse, mild subcutaneous edema anteriorly over the abdomen. CT/CT abdomen pelvis w con* [id number] IMPRESSION: 1. The patient has had an interval cholecystectomy. Small amount of fluid in the gallbladder fossa with small amount of pneumoperitoneum and small amount of soft tissue emphysema, likely due to recent surgery. 2. Diffuse, mild subcutaneous edema anteriorly over the abdomen. This may also be secondary to recent surgery. Mild cellulitis cannot be ruled out. Recommend clinical correlation. 3. Stable moderate fatty infiltration of the liver.
[2023-03-06] MEDS: iohexol 350 mg/mL 500 mL Btl (per mL) IV (19:13)
[2023-03-06 19:14] LABS: Basophils # 0.1 10^3/uL (0.0-0.1); Basophils % 0.4 %; Eosinophils # 0.7 10^3/uL (0.0-0.8); Eosinophils % 5.7 %; Hematocrit 44.7 % (36-47); Lymphocytes # 2.8 10^3/uL (0.8-4.8); Lymphocytes % 23.6 %; Mean Corpuscular Hemoglobin 28.9 pg (27-33); Mean Platelet Volume 12.4 fL (7.4-10.4); Monocytes # 0.7 10^3/uL (0.2-0.9); Monocytes % 5.9 %; Neutrophils # 7.67 10^3/uL (1.8-7.7); Neutrophils % 63.9 %; Nucleated Red Blood Cells % 0 %; Platelet Count 230 10^3/cmm (157-399); Red Blood Count 5.26 10^6/uL (3.85-5.65); Red Cell Distribution Width 12.3 % (12.1-15.1); White Blood Count 12.01 10^3/uL (3.29-11.43)
[2023-03-06 19:33] LABS: HCG, Serum Qual Negative (Negative)
[2023-03-06 19:44] LABS: Alanine Aminotransferase 36 U/L (0-33); Albumin Level 3.8 g/dL (3.5-5.2); Alkaline Phosphatase 169 U/L (35-105); Anion Gap 12.1 (5-19); Aspartate Amino Transferase 28 U/L (0-32); Blood Urea Nitrogen 4 mg/dL (6-20); Calcium 8.9 mg/dL (8.5-10.5); Carbon Dioxide 29 mmol/L (22-29); Chloride 96 mmol/L (98-107); Globulin 3.1 g/dL (1.3-4.6); Glucose 363 mg/dL (65-115); Lipase 18 U/L (13-60); Osmolality Calculated 288 mOsm/kg (285-295); Potassium 4.1 mmol/L (3.5-5.1); Sodium 133 mmol/L (136-145); Total Bilirubin 0.3 mg/dL (0.15-1.2); Total Protein 6.9 g/dL (6.6-8.7)
[2023-03-06 19:45] LABS: Add Urine Microscopic? YES; Bilirubin Urine Neg (Negative); Blood Urine Neg (Negative); Glucose Urine UA 4+ (Normal); Ketones Urine Negative (Negative); Leukocyte Esterase Urine Trace (Negative); Nitrate Urine Negative (Negative); Protein Urine Trace (Negative); Sulfosalicylic Acid Urine Negative (Negative); Urine Appearance Clear (CLEAR); Urine Color Yellow (Yellow); Urobilinogen Urine 1 mg/dL (Negative); pH Urine 8 (5-7)
[2023-03-06 19:46] LABS: Add Urine Culture? No; Bacteria Urine TRACE /hpf; Squamous Epithelial Cell Urine 0-4 /hpf (0-5); WBC Urine 0-4 /hpf (0-5)
[2023-03-06] MEDS: ondansetron 2 mg/ML SDV 2 mL 4 MG IVP (19:47)
[2023-03-06 19:48] VITALS: RESP 18; O2SAT 92
[2023-03-06] MEDS: morphine 4 mg/mL SDV 1 mL IVP (19:48)
[2023-03-06 19:56] VITALS: BP 118/78; PULSE 69; O2SAT 91
[2023-03-06 21:00] VITALS: BP 118/78; PULSE 69; O2SAT 93
[2023-03-06 21:40] VITALS: BP 136/89; PULSE 80; RESP 16
--- NOTE | 2023-03-07 08:00 | PC.SOCIAL ---
General Surgery Referral Referral message to general surgery at this time. Clinic to contact patient with appt date/time.
== END 2023-03-06 22:00 | disposition home or self-care (01) ==
PROVIDERS: Emergency Medicine; Emergency Provider Physician Assistant; PCP Family Medicine
DX: G89.18 Other acute postprocedural pain (principal); R10.11 Right upper quadrant pain; L03.311 Cellulitis of abdominal wall; Z79.4 Long term (current) use of insulin; F17.210 Nicotine dependence, cigarettes, uncomplicated; E11.9 Type 2 diabetes mellitus without complications; E78.5 Hyperlipidemia, unspecified; Z90.49 Acquired absence of other specified parts of digestive tract
CPT/HCPCS: 74177; 80053; 81001; 83690; 84703; 85025; 96374; 96375; 99285; J2270; J2405; Q9967

== ENCOUNTER → 2023-03-14 14:34 | Outpatient (BNVA) | payer MEDICAID, SELFPAY | PROVIDERS: PCP Family Medicine; Visit Provider Surgery | DX: Z90.49 Acquired absence of other specified parts of digestive tract (principal); Z98.890 Other specified postprocedural states | CPT/HCPCS: 99024 ==

== ENCOUNTER → 2023-04-02 10:44 | Outpatient (BNVA) | payer MEDICAID, SELFPAY | PROVIDERS: PCP Family Medicine; Visit Provider Family Medicine | DX: E11.9 Type 2 diabetes mellitus without complications | CPT/HCPCS: 80048; 83036 ==

== ENCOUNTER → 2023-04-19 08:18 | Outpatient (BNVA) | payer MEDICAID, SELFPAY | PROVIDERS: PCP Family Medicine; Referring Provider Family Medicine; Visit Provider Orthopaedic Surgery | DX: M54.42 Lumbago with sciatica, left side; M54.41 Lumbago with sciatica, right side; G89.29 Other chronic pain | CPT/HCPCS: 72100; 99204 ==

== ENCOUNTER 2023-05-23 07:44 | Outpatient (CLI) | payer MEDICAID, SELFPAY ==
--- NOTE | 2023-05-23 08:00 | MR_ITS ---
WS: [id number] MRI LUMBAR SPINE NONCONTRAST TECHNIQUE: Sagittal T1, T2 and STIR imaging. Axial T1 and T2 imaging. CLINICAL INFORMATION: lumbar pain COMPARISON: MRI 04/28/2020 FINDINGS: Mild lumbar curve. No acute compression. No high-grade central canal stenosis. 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 L1-L2: Normal. L2-L3: Normal. L3-L4: Mild annular bulging. Spinal canal and foramen are patent. Mild facet arthropathy. Mild narrow ing of the LEFT subarticular recess. L4-L5: Mild annular bulging. Moderate facet arthropathy. Spinal canal and foramen are patent. Mild na rrowing of the subarticular recess. L5-S1: Mild annular bulging. Mild arthropathy. Spinal canal and foramen are patent. Visualized pelvic bony structures: Normal. Paravertebral soft tissues: Normal. IMPRESSION: 1. Mild lumbar curve. No acute compression. No high-grade central canal stenosis. 2. Mild annular bulging L3-4 with slight narrowing of the LEFT subarticular recess. 3. Mild annular bulge L4-5 with slight effacement of ventral thecal sac and slight narrowing of the subarticular recess bilaterally. 4. Mild to moderate facet arthropathy L3-L5. 5. Overall no significant changes since 2019
== END 2023-05-23 07:45 | disposition home or self-care (01) ==
LOC: RAD 07:44
PROVIDERS: PCP Family Medicine; Visit Provider Orthopaedic Surgery
DX: M54.40 Lumbago with sciatica, unspecified side (principal); M51.36 Other intervertebral disc degeneration, lumbar region; M48.061 Spinal stenosis, lumbar region without neurogenic claudication; M47.816 Spondylosis without myelopathy or radiculopathy, lumbar region
CPT/HCPCS: 72148

== ENCOUNTER → 2023-05-28 10:05 | Outpatient (BNVA) | payer MEDICAID, SELFPAY | PROVIDERS: PCP Family Medicine; Visit Provider Family Medicine | DX: E11.9 Type 2 diabetes mellitus without complications (principal) | CPT/HCPCS: 80048; 83036 ==

== ENCOUNTER 2023-06-03 11:35 | Emergency (ER) | payer MEDICAID, SELFPAY ==
[2023-06-03 11:44] VITALS: BP 128/86; PULSE 89; RESP 16; TEMP 36.3; O2SAT 92
--- NOTE | 2023-06-03 12:22 | ED_ITS ---
HPI - Nausea/Vomiting/Diarrhea 2 General: Chief complaint: Nausea/Vomiting/Diarrhea Stated complaint: abd pain, N/V Time Seen by Provider: 06/03/23 12:00 Source: patient Mode of arrival: ambulatory Limitations: no limitations History of Present Illness: 42-year-old female states she has had ab dominal pain its been epigastric in nature over the last 2 weeks states she started having nausea vomiting diarrhea last night with some worsening pain rates her pain a 5 out of 10 denies any fevers denies any worsening proving factors. Associated nausea: Yes Associated symtoms: Reports nausea; Denies chest pain or headache(s) Review of Systems 2 Const: Denies: fever(s), chills, body aches or change in appetite ENMT: Denies: throat pain or dental pain Card: Denies: chest pain Resp: Denies: dyspnea GI: Reports: abdominal pain, nausea, vomiting and diarrhea Musc: Denies: neck pain or back pain Skin/Breast: Denies: rash Neuro: Denies: headache(s) PFSH ED 2 PFSH: Medical History Insomnia Uncontrolled diabetes mellitus Urolithiasis Morbid obesity Bipolar 2 disorder Post-traumatic stress disorder, chronic Nicotine dependence, cigarettes, uncomplicated Psychiatric care Urgency incontinence Major depressive disorder without psychotic features DM2 (diabetes mellitus, type 2) Dyslipidemia Low back pain with sciatica Hypothyroidism History of abdominal hernia X2 Surgical History Hx laparoscopic cholecystectomy 03/01/23 Dr. Alarcon Hx of colonoscopy 2010 History of hernia repair Hx of knee surgery right H/O: hysterectomy Hx of appendectomy Hx of laparoscopic gastric banding Family History Mother CAD (coronary artery disease) Stroke Father CAD (coronary artery disease) Other Cancer Diabetes Hypertension Social History Smoking and tobacco/nicotine status: current every day tobacco/nicotine user cigarettes Packs smoked per day: 1 Years cigarettes smoked: 28 Alcohol intake: never Substance/Drug Use: never Household members: family Housing: House Marital status: Legally Current occupational status: employed Female Reproductive History: Spontaneous abortions: No Physical Exam 2 Const: COMMON NORMALS: no acute distress, patient oriented x3 and healthy appearing HENMT: COMMON NORMALS: normocephalic and atraumatic HEAD & SCALP: n ormocephalic and atraumatic Neck/C-Spine: COMMON NORMALS: full ROM and supple Chest: COMMONS NORMALS: normal inspection of the chest and normal palpation of entire chest wall Resp: COMMON NORMALS: normal respiratory effort, No retractions, No use of accessory muscles and clear to auscultation bilaterally AUSCULTATION: clear to auscultation bilaterally Cardio: COMMON NORMALS: regular rate, regular rhythm and No murmurs present (Cardio) RATE: regular rate RHYTHM: regular rhythm GI: COMMON NORMALS: Normal to inspection, nondistended, normoactive bowel sounds present, Soft to palpation, non-tender and no masses PALPATION: Yes Soft to palpation Extremity: COMMON NORMALS: normal to inspection and full ROM Neuro: COMMON NORMALS: patient oriented x3, moves all extremities and no focal motor deficits Psych: COMMON NORMALS: mental status grossly normal, Normal thought process present and cooperative THOUGHT PROCESS: Normal thought process present Skin: COMMON NORMALS: no rashes or lesions noted and no wounds GENERAL SKIN EXAM: no rashes or lesions noted Course 2 Vital Signs: Vital signs: Vital Signs Temperature 97.4 F L 06/03/23 11:44 Pulse Rate 72 06/03/23 14:03 Respiratory Rate 15 06/03/23 12:29 Blood Pressure 129/75 06/03/23 14:03 Pulse Oximetry 93 06/03/23 14:03 Oxygen Delivery Me thod Room Air 06/03/23 12:29 MDM - Nausea/Vomiting/Diarrhea Medical Decision Making Patient presents with vomiting diarrhea abdominal cramping is likely a viral gastroenteritis normal exam here is benign white counts normal no signs of acute surgical abdomen we will prescribe nausea meds for home she is follow-up PCP and return if worsening she understands agrees to plan. Medical Records I reviewed the patient's medical records. Lab Data I reviewed the patient's lab results. 06/03/23 12:19 06/03/23 12:19 Laboratory Results WBC 9.57 10^3/uL (3.29-11.43) 06/03/23 12:19 RBC 5.37 10^6/uL (3.85-5.65) 06/03/23 12:19 Hgb 15.40 g/dL (11.27-16.99) 06/03/23 12:19 Hct 45.8 % (36-47) 06/03/23 12:19 MCV 85.3 fl (85-98) 06/03/23 12:19 MCH 28.7 pg (27-33) 06/03/23 12:19 MCHC 33.6 g/dL (30-55) 06/03/23 12:19 RDW 12.5 % (12.1-15.1) 06/03/23 12:19 Plt Count 209 10^3/cmm (157-399) 06/03/23 12:19 MPV 12.7 fL (7.4-10.4) H 06/03/23 12:19 Neut % (Auto) 67.9 % 06/03/23 12:19 Lymph % (Auto) 22.7 % 06/03/23 12:19 [place] % (Auto) 5.7 % 06/03/23 12:19 Eos % (Auto) 2.8 % 06/03/23 12:19 Baso % (Auto) 0.5 % 06/03/23 12:19 Neut # (Auto) 6.49 10^3/uL (1.8-7.7) 06/03/23 12:19 Lymph # (Auto) 2.2 10^3/uL (0.8-4.8) 06/03/23 12:19 [place] # (Auto) 0.6 10^3/uL (0.2-0.9) 06/03/23 12:19 Eos # (Auto) 0.3 10^3/uL (0.0-0.8) 06/03/23 12:19 Baso # (Auto) 0.1 10^3/uL (0.0-0.1) 06/03/23 12:19 Nucleated RBC % (auto) 0 % 06/03/23 12:19 Nucleated RBCs # 0.0 /100WBC 06/03/23 12:19 Sodium 134 mmol/L (136-145) L 06/03/23 12:19 Potassium 4.4 mmol/L (3.5-5.1) 06/03/23 12:19 Chloride 96 mmol/L (98-107) L 06/03/23 12:19 Carbon Dioxide 29 mmol/L (22-29) 06/03/23 12:19 Anion Gap 13.4 (5-19) 06/03/23 12:19 BUN 9 mg/dL (6-20) 06/03/23 12:19 Creatinine 0.6 mg/dL (0.5-0.9) 06/03/23 12:19 GFR Calculation 108.6 mL/min (90-130) 06/03/23 12:19 Glucose 350 mg/dL (65-115) H 06/03/23 12:19 Calculated Osmolality 291 mOsm/kg (285-295) 06/03/23 12:19 Calcium 9.4 mg/dL (8.5-10.5) 06/03/23 12:19 Total Bilirubin 0.5 mg/dL (0.15-1.2) 06/03/23 12:19 AST 26 U/L (0-32) 06/03/23 12:19 ALT 26 U/L (0-33) 06/03/23 12:19 Alkaline Phosphatase 123 U/L (35-105) H 06/03/23 12:19 Total Protein 6.7 g/dL (6.6-8.7) 06/03/23 12:19 Albumin 4.1 g/dL (3.5-5.2) 06/03/23 12:19 Globulin 2.6 g/dL (1.3-4.6) 06/03/23 12:19 Lipase 26 U/L (13-60) 06/03/23 12:19 HCG, Qual Negative (Negative) 06/03/23 12:19 Urine Color Yellow (Yellow) 06/03/23 12:45 Urine Appearance Cloudy (CLEAR) A 06/03/23 12:45 Urine pH 6 (5-7) 06/03/23 12:45 Ur Specific [place] 1.020 (1.005-1.030) 06/03/23 12:45 Urine Protein Neg (Negative) 06/03/23 12:45 Urine Glucose (UA) 4+ (Normal) H 06/03/23 12:45 Urine Ketones Negative (Negative) 06/03/23 12:45 Urine Blood Neg (Negative) 06/03/23 12:45 Urine Nitrate Negative (Negative) 06/03/23 12:45 Urine Bilirubin Neg (Negative) 06/03/23 12:45 Urine Urobilinogen Norm mg/dL (Negative) 06/03/23 12:45 Ur Leukocyte Esterase Trace (Negative) H 06/03/23 12:45 Urine RBC None /hpf (0-2) 06/03/23 12:45 Urine WBC 5-10 /hpf (0-5) H 06/03/23 12:45 Ur Squamous Epith Cells 10-15 /hpf (0-5) H 06/03/23 12:45 Amorphous Sediment Not Reportable 06/03/23 12:45 Urine Bacteria 1+ /hpf (NONE) H 06/03/23 12:45 No radiology studies performed this visit Discharge Plan Discharge Patient Disposition: Home Clinical Impression: Vomiting Qualifiers: Vomiting type: unspecified Nausea presence: with nausea Qualified Code(s): R 11.2 - Nausea with vomiting, unspecified Diarrhea Qualifiers: Diarrhea type: unspecified type Qualified Code(s): R19.7 - Diarrhea, unspecified Abdominal pain Qualifiers: Abdominal location: generalized Qualified Code(s): R10.84 - Generalized abdominal pain Condition: Stable Prescriptions: New Reglan 10 mg tablet 10 mg PO Q6H PRN (Reason: nausea and vomiting) Qty: 20 0RF No Action (DME) diabetic supplies, miscellan. Misc See Rx Instructions .ROUTE .MEDSUPPLY Qty: 1 3RF Rx Instructions: Diabetic shoes with 3 pair of inserts gabapentin 300 mg capsule See Rx Instructions .ROUTE .COMPLEX Qty: 120 5RF Dose Instruction: TAKE 1 CAPSULE BY MOUTH THREE TIMES DAILY AT 9 AM, NOON, AND 8 PM Rx Instructions: Take 1 capsule by mouth at 9a and 12p and two capsules at bedtime. (DME) glucometer and strips 100 See Rx Instructions .Route .MEDSUPPLY Qty: 1 11RF Rx Instructions: check her glucose 3 times a day and adjust sliding scale insulin omeprazole 40 mg capsule,delayed release(DR/EC) 40 mg PO DAILY Qty: 90 2RF tizanidine 4 mg tablet See Rx Instructions .ROUTE .COMPLEX Qty: 90 2RF Dose Instruction: TAKE 1 TABLET BY MOUTH THREE TIMES DAILY NEEDED FOR MUSCLE SPASMS Rx Instructions: TAKE 1 TABLET BY MOUTH THREE TIMES DAILY NEEDED FOR MUSCLE SPASMS tramadol 50 mg tablet 50 mg PO TID PRN (Reason: pain) Qty: 90 5RF Hold Instructions: Resume on 03/06/23. hydrocortisone 1 % cream 1 applic topical TID PRN (Reason: skin irritation) Qty: 28.35 0RF albuterol sulfate 90 mcg/actuation HFA aerosol inhaler 2 inh inhalation Q6H PRN (Reason: shortness of breath or wheezing) Qty: 6.7 0RF eszopiclone [Lunesta] 3 mg tablet 3 mg PO .HS Qty: 30 2RF Vraylar 3 mg capsule 3 mg PO .HS Qty: 30 2RF citalopram [Celexa] 20 mg tablet 20 mg PO DAILY Qty: 30 2RF prazosin 2 mg capsule 4 mg PO .HS Qty: 60 2RF insulin aspart U-100 [Novolog FlexPen U-100 Insulin] 100 unit/mL (3 mL) insulin pen 40 unit SUBCUT TID Qty: 30 6RF cetirizine 10 mg Tablet 10 mg PO DAILY@0900 PRN (Reason: Allergic Symptoms) insulin glargine [Lantus U-100 Insulin] 100 unit/mL solution 25 unit SUBCUT DAILY ondansetron 4 mg tablet,disintegrating 4 mg PO Q8H PRN (Reason: nausea and vomiting) Qty: 20 0RF Dulcolax Stool Softener (dss) 100 mg capsule 100 mg PO BID Qty: 14 0RF Discharge Orders: Discharge ED (Routine); Ordered 06/03/23 Ordered By: Ajay Coffman Referrals: Moris Null DO [Primary Care Provider] - 1-3 days Discharge Diet: Advance as tolerated Discharge Activity: Resume usual activity Patient Instructions: Gastroenteritis (ED), Abdominal Pain (ED) Coding Level of Care Code ED Biopharmaceutical Rep for Alcides Biggs
[2023-06-03 12:29] VITALS: BP 136/90; RESP 15; O2SAT 97
[2023-06-03] MEDS: metoclopramide 5 mg/mL SDV 2 mL 10 MG IVP (12:37)
[2023-06-03] MEDS: diphenhydrAMINE 50 mg/mL SDV 1mL IVP (12:37)
[2023-06-03] MEDS: sodium chloride 0.9% 1,000 ML 999 ML IV (12:38)
[2023-06-03 12:45] LABS: Basophils # 0.1 10^3/uL (0.0-0.1); Basophils % 0.5 %; Eosinophils # 0.3 10^3/uL (0.0-0.8); Eosinophils % 2.8 %; Hematocrit 45.8 % (36-47); Lymphocytes # 2.2 10^3/uL (0.8-4.8); Lymphocytes % 22.7 %; Mean Corpuscular HGB Conc 33.6 g/dL (30-55); Mean Corpuscular Hemoglobin 28.7 pg (27-33); Mean Corpuscular Volume 85.3 fl (85-98); Mean Platelet Volume 12.7 fL (7.4-10.4); Monocytes # 0.6 10^3/uL (0.2-0.9); Monocytes % 5.7 %; Neutrophils # 6.49 10^3/uL (1.8-7.7); Neutrophils % 67.9 %; Nucleated Red Blood Cells % 0 %; Platelet Count 209 10^3/cmm (157-399); Red Blood Count 5.37 10^6/uL (3.85-5.65); Red Cell Distribution Width 12.5 % (12.1-15.1); White Blood Count 9.57 10^3/uL (3.29-11.43)
[2023-06-03 13:03] LABS: Alanine Aminotransferase 26 U/L (0-33); Albumin Level 4.1 g/dL (3.5-5.2); Alkaline Phosphatase 123 U/L (35-105); Anion Gap 13.4 (5-19); Aspartate Amino Transferase 26 U/L (0-32); Blood Urea Nitrogen 9 mg/dL (6-20); Calcium 9.4 mg/dL (8.5-10.5); Carbon Dioxide 29 mmol/L (22-29); Chloride 96 mmol/L (98-107); Globulin 2.6 g/dL (1.3-4.6); Glomerular Filtration Rate 108.6 mL/min (90-130); Glucose 350 mg/dL (65-115); Lipase 26 U/L (13-60); Osmolality Calculated 291 mOsm/kg (285-295); Potassium 4.4 mmol/L (3.5-5.1); Sodium 134 mmol/L (136-145); Total Bilirubin 0.5 mg/dL (0.15-1.2); Total Protein 6.7 g/dL (6.6-8.7)
[2023-06-03 13:28] LABS: Protein Urine Neg (Negative); Urine Appearance Cloudy (CLEAR); Urine Color Yellow (Yellow); pH Urine 6 (5-7)
[2023-06-03 13:29] LABS: Add Urine Culture? No; Add Urine Microscopic? YES; Bacteria Urine 1+ /hpf; Bilirubin Urine Neg (Negative); Blood Urine Neg (Negative); Glucose Urine UA 4+ (Normal); Ketones Urine Negative (Negative); Leukocyte Esterase Urine Trace (Negative); Nitrate Urine Negative (Negative); Urobilinogen Urine Norm (Negative)
[2023-06-03 13:36] LABS: HCG, Serum Qual Negative (Negative)
[2023-06-03 14:03] VITALS: BP 129/75; PULSE 72; O2SAT 93
== END 2023-06-03 14:10 | disposition home or self-care (01) ==
PROVIDERS: Emergency Provider Emergency Medicine; PCP Family Medicine
DX: R11.2 Nausea with vomiting, unspecified (principal); R19.7 Diarrhea, unspecified; R10.84 Generalized abdominal pain; Z79.4 Long term (current) use of insulin; E11.9 Type 2 diabetes mellitus without complications; E78.5 Hyperlipidemia, unspecified; F17.210 Nicotine dependence, cigarettes, uncomplicated
CPT/HCPCS: 80053; 81001; 83690; 84703; 85025; 96361; 96374; 96375; 99284; J1200; J2765; J7030

== ENCOUNTER → 2023-06-07 08:46 | Outpatient (BNVA) | payer MEDICAID, SELFPAY | PROVIDERS: PCP Family Medicine; Visit Provider Orthopaedic Surgery | DX: M47.816 Spondylosis without myelopathy or radiculopathy, lumbar region; M48.061 Spinal stenosis, lumbar region without neurogenic claudication | CPT/HCPCS: 72100; 99214 ==

== ENCOUNTER → 2023-06-08 15:09 | Outpatient (BNVA) | payer MEDICAID, SELFPAY | PROVIDERS: PCP Family Medicine; Visit Provider Nurse Practitioner Family | DX: R50.9 Fever, unspecified (principal) | CPT/HCPCS: 87426 ==

== ENCOUNTER 2023-08-02 14:38 | Emergency (ER) | payer MEDICAID, SELFPAY ==
--- NOTE | 2023-08-02 14:47 | XR_ITS ---
WS: [id number] Left shoulder, 2 views, 08/02/2023 Clinical Data: pain Comparison: None. Findings: No fractures or dislocations are seen. The AC joint is normal. The adjacent left clavicle, left scapu la and ribs are normal. The soft tissues are unremarkable. Impression: Negative left shoulder.
[2023-08-02 14:52] VITALS: BP 125/85; PULSE 86; RESP 17; TEMP 36.8; O2SAT 95; BMI 41.5
--- NOTE | 2023-08-02 14:56 | W.ED.EXTPRO ---
HPI - Extremity Problem General: Chief complaint: Extremity Problem,Nontraumatic Stated complaint: Left Shoulder Pain Time Seen by Provider: 08/02/23 14:56 History of Present Illness: 42-year-old female comes in today for complaints of injury to the left shoulder area. Patient tripped last this morning around 11 causing her to catch herself with her right arm that hit her left shoulder against the door frame. Since then patient has anterior shoulder pain and discomfort. Patient has not been able to move the shoulder due to pain. No obvious deformity is noted. No obvious dislocation is noted. Review of Systems General: Reports: 10 or more systems reviewed and unremarkable except in HPI and below Musc: Reports: joint pain (Left shoulder) PFSH ED PFSH: Medical History Insomnia Uncontrolled diabetes mellitus Urolithiasis Morbid obesity Bipolar 2 disorder Post-traumatic stress disorder, chronic Nicotine dependence, cigarettes, uncomplicated Psychiatric care Urgency incontinence Major depressive disorder without psychotic features DM2 (diabetes mellitus, type 2) Dyslipidemia Low back pain with sciatica Hypothyroidism History of abdominal hernia X2 Surgical History Hx laparoscopic cholecystectomy 03/01/23 Dr. Alarcon Hx of colonoscopy 2010 History of hernia repair Hx of knee surgery right H/O: hysterectomy Hx of appendectomy Hx of laparoscopic gastric banding Family History Mother CAD (coronary artery disease) Stroke Father CAD (coronary artery disease) Other Cancer Diabetes Hypertension Social History Smoking and tobacco/nicotine status: current every day tobacco/nicotine user cigarettes Packs smoked per day: 1 Years cigarettes smoked: 28 Alcohol intake: never Substance/Drug Use: never Household members: family Housing: House Marital status: Legally Current occupational status: employed Female Reproductive History: Spontaneous abortions: No Physical Exam Const: COMMON NORMALS: alert HENMT: COMMON NORMALS: normocephalic HEAD & SCALP: normocephalic Neck/C-Spine: COMMON NORMALS: full ROM Resp: COMMON NORMALS: normal respiratory effort and clear to auscultation bilaterally AUSCULTATION: clear to auscultation bilaterally Cardio: COMMON NORMALS: regular rate RATE: regular rate GI: COMMON NORMALS: non-tender Back/Pelvis: COMMON NORMALS: thoracic and lumbar spine normal to inspection Extremity: LEFT UPPER EXTREMITY: Yes shoulder joint (No palpable dislocation, no obvious deformity) Left shoulder joint: Yes inspection, Yes palpation, Yes ROM (Guarded and reduced due to pain) and Yes neurovascular exam Neuro: SENSORIUM/ORIENTATION: Yes alert Skin: COMMON NORMALS: turgor normal GENERAL SKIN EXAM: turgor normal Course Vital Signs: Vital signs: Vital Signs Temperature 98.3 F 08/02/23 14:52 Pulse Rate 86 08/02/23 14:52 Respiratory Rate 17 08/02/23 14:52 Blood Pressure 125/85 08/02/23 14:52 Pulse Oximetry 95 08/02/23 14:52 Oxygen Delivery Me thod Room Air 08/02/23 14:52 MDM - Extremity (Nontraumatic) Medical Decision Making 42-year-old female comes in with injury to the left shoulder. On exam patient has anterior tenderness of the shoulder. Guarded movement due to pain. No obvious crepitus of the clavicle, some muscle tenderness noted, no bruising noted, distal pulses and sensation are intact. Differential diagnosis includes dislocation, contusion, fracture. X-rays of the shoulder are unremarkable. Reviewed exam with patient with recommendations for treatment and follow-up. Patient reported understanding agreed to plan. All radiology interpretation(s) finalized by discharge Discharge Plan Discharge Patient Disposition: Home Clinical Impression: Contusion of left shoulder Qualifiers: Encounter type: initial encounter Qualified Code(s): S40.012A - Contusion of left shoulder, initial encounter Condition: Stable Prescriptions: New diclofenac sodium 75 mg tablet,delayed release (DR/EC) 75 mg PO BID Qty: 20 0RF hydrocodone-acetaminophen 5-325 mg tablet 1 tab PO Q8H PRN (Reason: pain) Qty: 7 0RF No Action (DME) diabetic supplies, miscellan. Misc See Rx Instructions .ROUTE .MEDSUPPLY Qty: 1 3RF Rx Instructions: Diabetic shoes with 3 pair of inserts gabapentin 300 mg capsule See Rx Instructions .ROUTE .COMPLEX Qty: 120 5RF Dose Instruction: TAKE 1 CAPSULE BY MOUTH THREE TIMES DAILY AT 9 AM, NOON, AND 8 PM Rx Instructions: Take 1 capsule by mouth at 9a and 12p and two capsules at bedtime. (DME) glucometer and strips 100 See Rx Instructions .Route .MEDSUPPLY Qty: 1 11RF Rx Instructions: check her glucose 3 times a day and adjust sliding scale insulin omeprazole 40 mg capsule,delayed release(DR/EC) 40 mg PO DAILY Qty: 90 2RF hydrocortisone 1 % cream 1 applic topical TID PRN (Reason: skin irritation) Qty: 28.35 0RF (DME) Blood Glucose Test Strip See Rx Instructions .MEDSUPPLY Qty: 200 12RF Rx Instructions: Use as directed with glucometer to check blood sugar Victoza 2-Eduardo 0.6 mg/0.1 mL (18 mg/3 mL) pen injector See Rx Instructions SUBCUT .COMPLEX Qty: 6 2RF Rx Instructions: inject 0.6mg subcutaneously once daily x 7 days; then 1.2mg daily. tizanidine 4 mg tablet See Rx Instructions .ROUTE .COMPLEX Qty: 90 2RF Dose Instruction: TAKE 1 TABLET BY MOUTH THREE TIMES DAILY NEEDED FOR MUSCLE SPASMS Rx Instructions: TAKE 1 TABLET BY MOUTH THREE TIMES DAILY NEEDED FOR MUSCLE SPASMS tramadol 50 mg tablet 50 mg PO TID PRN (Reason: pain) Qty: 90 5RF Hold Instructions: Resume on 03/06/23. albuterol sulfate 90 mcg/actuation HFA aerosol inhaler 2 inh inhalation Q6H PRN (Reason: shortness of breath or wheezing) Qty: 6.7 0RF eszopiclone [Lunesta] 3 mg tablet 3 mg PO .HS Qty: 30 2RF citalopram [Celexa] 20 mg tablet 20 mg PO DAILY Qty: 30 2RF Vraylar 3 mg capsule 3 mg PO .HS Qty: 30 2RF prazosin 2 mg capsule 4 mg PO .HS Qty: 60 2RF insulin aspart U-100 [Novolog FlexPen U-100 Insulin] 100 unit/mL (3 mL) insulin pen 40 unit SUBCUT TID Qty: 30 6RF cetirizine 10 mg Tablet 10 mg PO DAILY@0900 PRN (Reason: Allergic Symptoms) insulin glargine [Lantus U-100 Insulin] 100 unit/mL solution 25 unit SUBCUT DAILY ondansetron 4 mg tablet,disintegrating 4 mg PO Q8H PRN (Reason: nausea and vomiting) Qty: 20 0RF Dulcolax Stool Softener (dss) 100 mg capsule 100 mg PO BID Qty: 14 0RF Reglan 10 mg tablet 10 mg PO Q6H PRN (Reason: nausea and vomiting) Qty: 20 0RF Discharge Orders: Discharge ED (Routine); Ordered 08/02/23 Ordered By: Josh Ruiz Referrals: Moris Null DO [Primary Care Provider] - Discharge Diet: Usual diet Discharge Activity: Increase activity as tolerated Patient Instructions: Contusion in Adults (ED) Activity Restrictions/Additional Instructions: Activity as tolerated. Use acetaminophen and diclofenac to control pain. Do not use diclofenac with ibuprofen or naproxen as these are similar medications and may be harmful for your stomach or kidneys if used together. Use hydrocodone for severe pain. Use ice or heat for further pain relief. Follow-up with primary care in 1 week for recheck. Return to ED for new concerns. Coding Level of Care Code ED Hydrotreater Operator for Alcides Biggs
[2023-08-02] MEDS: HYDROcodone-acetaminophen 7.5-325 mg Tablet 1 TAB PO (15:26)
== END 2023-08-02 15:58 | disposition home or self-care (01) ==
PROVIDERS: Emergency Provider Nurse Practitioner Family; PCP Family Medicine
DX: S40.012A Contusion of left shoulder, initial encounter (principal); Z79.4 Long term (current) use of insulin; F17.210 Nicotine dependence, cigarettes, uncomplicated; E11.9 Type 2 diabetes mellitus without complications; E78.5 Hyperlipidemia, unspecified; W18.49XA Other slipping, tripping and stumbling without falling, initial encounter
CPT/HCPCS: 73030; 99283

== ENCOUNTER 2023-09-23 17:06 | Inpatient (IN) | payer MEDICAID, SELFPAY ==
[2023-09-23] VITALS (7 sets, daily range): BP systolic 142–159; BP diastolic 91–100; PULSE 62–96; RESP 16–18; TEMP 36.3–36.7; O2SAT 91–95; BMI 40.1
--- NOTE | 2023-09-23 17:07 | ECG_ITS ---
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 Measurements Intervals [place] Rate: 89 P: 59 OK: 191 QRS: -52 QRSD: 92 T: 32 QT: 347 QTc: 423 Interpretive Statements SINUS RHYTHM LOW QRS VOLTAGE IN PRECORDIAL LEADS [QRS DEFLECTION < 1.0 mV IN CHEST LEADS] LEFT ANTERIOR FASCICULAR BLOCK [QRS AXIS <= -45, QR IN I, RS IN II] POSSIBLE ANTERIOR MYOCARDIAL INFARCTION , PROBABLY OLD [30 ms Q WAVE IN V3/V4, OR R < 0.2 mV IN V4] Compared to ECG 12/29/2022 16:49:38 Left anterior fascicular block now present Indeterminate axis no longer present Myocardial infarct finding still present Electronically Signed On 09-24-2023 13:16:33 CDT by Jae Calzada M.D. [email or web address]
--- NOTE | 2023-09-23 17:16 | ED_ITS ---
HPI - Chest Pain 2 General: Chief Complaint: Chest Pain Stated Complaint: Chest pains Time Seen by Provider: 09/23/23 17:16 History of Present Illness: 42-year-old female presents to the emerg ency department with complaints of left- sided chest pain that started approximately 20 minutes prior to arrival here in the emergency department. She states her chest pain radiates to her jaw and left arm. She states she did become diaphoretic and nauseated at the time of her chest pain. She states her chest pain is a 6 out of 10 sharp and pressure- like. 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 Patient states that she is currently under significant amount of increased life stressors given that she has recently lost her mother at the end of August 2023. Patient does endorse past medical history of diabetes, hypertension, high cholesterol, morbid obesity, daily cigarette/tobacco use. Associated symptoms: Reports diaphoresis and nausea; Deny syncope Review of Systems 2 General: Reports: 10 or more systems reviewed and unremarkable except in HPI and below Const: Reports: diaphoresis Card: Reports: chest pain; Denies: irregular heart rhythm or syncope GI: Reports: nausea PFSH ED 2 PFSH: Medical History Insomnia Uncontrolled diabetes mellitus Urolithiasis Morbid obesity Bipolar 2 disorder Post-traumatic stress disorder, chronic Nicotine dependence, cigarettes, uncomplicated Psychiatric care Urgency incontinence Major depressive disorder without psychotic features DM2 (diabetes mellitus, type 2) Dyslipidemia Low back pain with sciatica Hypothyroidism History of abdominal hernia X2 Surgical History Hx laparoscopic cholecystectomy 03/01/23 Dr. Alarcon Hx of colonoscopy 2010 History of hernia repair Hx of knee surgery right H/O: hysterectomy Hx of appendectomy Hx of laparoscopic gastric banding Family History Mother CAD (coronary artery disease) Stroke Father CAD (coronary artery disease) Other Cancer Diabetes Hypertension Social History Smoking and tobacco/nicotine status: current every day tobacco/nicotine user cigarettes Packs smoked per day: 1 Years cigarettes smoked: 28 Alcohol intake: never Substance/Drug Use: never Household members: family Housing: House Marital status: Legally Current occupational status: employed Female Reproductive History: Spontaneous abortions: No Physical Exam 2 Narrative: EXAM NARRATIVE: Constitutional: the patient appears well nourished and of normal development. Vital signs as documented. No acute distress at present. Alert and oriented-to person, place, time and situation. Head, eyes, ears, nose, mouth, throat: Normocephalic, atraumatic. Pupils-equal, round, reactive to light. No scleral icterus. Normal-appearing external ears. Normal appearing nasal turbinates, no drainage. No obvious oral lesions, posterior oropharynx without erythema or exudates. Neck: Supple, trachea is midline, no lymphadenopathy, no jugular venous distension, thyromegaly, or carotid bruits. Carotid upstrokes are brisk bilaterally. Lungs: clear to auscultation to all lung snider. Symmetrical rise and fall of chest, no obvious signs of increased work of breathing at present. Cardiac: Regular rate and rhythm, positive S1, S2. No murmurs, rubs or gallops that I can appreciate Abdomen: Soft, non-tender to palpation, normal active bowel sounds to all quadrants. No palpable masses, no organomegaly and abdominal bruits. Extremities: 2+ pulses in the upper extremities that are equal bilaterally, 2+ pulses in the lower extremities that are equal bilaterally. Non-edematous. Moves all extremities well, sensation to all extremities are noted. Skin: Warm, dry, intact. Course 2 Vital Signs: Vital signs: Vital Signs Temperature 97.4 F L 09/23/23 22:48 Pulse Rate 61 09/24/23 00:03 Respiratory Rate 18 09/23/23 22:48 Blood Pressure 152/91 09/23/23 22:48 Pulse Oximetry 98 09/24/23 00:03 Oxygen Delivery Me thod Room Air 09/24/23 00:03 Fraction of Inspir ed Oxygen 21 09/24/23 00:03 MDM - Chest Pain Medical Decision Making Physical exam completed and documented, I will obtain serial cardiac enzymes, serial twelve-lead EKGs, chest x-ray, CBC, CMP, urinalysis, B-type natriuretic peptide, PT/PTT/INR, and a chest x-ray. I have held the cardiac dose aspirin given the patient's allergy. I have ordered loading dose of heparin and heparin drip. I have reviewed previous and pertinent medical records for assist in obtaining beneficial medical information to improved the care and treatment of the patient. I have consulted the hospitalist for admission to the hospital for NSTEMI given the patient's delta change of -12 and her persistent low chest pain. Patient does have a heart score of 5 points concerning for moderate score which ranges from 4-6 points, risk of mace of 12 to 16% with the patient's delta change of 12 patient is considered high risk and consistent with need for admission to the hospital service for additional cardiac evaluation. Differential diagnosis includes NSTEMI, electrolyte abnormality, atypical chest pain, pneumonia, pericarditis, stress response, anxiety, Medical Records I reviewed the patient's medical records. Lab Data I reviewed the patient's lab results. 09/23/23 17:48 09/23/23 17:48 Radiology Impressions Chest X-Ray 09/23/23 17:17 IMPRESSION: No acute cardiopulmonary disease. Laboratory Results WBC 9.17 10^3/uL (3.29-11.43) 09/23/23 17:48 RBC 5.25 10^6/uL (3.85-5.65) 09/23/23 17:48 Hgb 15.40 g/dL (11.27-16.99) 09/23/23 17:48 Hct 45.2 % (36-47) 09/23/23 17:48 MCV 86.1 fl (85-98) 09/23/23 17:48 MCH 29.3 pg (27-33) 09/23/23 17:48 MCHC 34.1 g/dL (30-55) 09/23/23 17:48 RDW 12.3 % (12.1-15.1) 09/23/23 17:48 Plt Count 188 10^3/cmm (157-399) 09/23/23 17:48 MPV 12.8 fL (7.4-10.4) H 09/23/23 17:48 Neut % (Auto) 66.7 % 09/23/23 17:48 Lymph % (Auto) 25.4 % 09/23/23 17:48 Clarke % (Auto) 4.3 % 09/23/23 17:48 Eos % (Auto) 2.7 % 09/23/23 17:48 Baso % (Auto) 0.4 % 09/23/23 17:48 Neut # (Auto) 6.11 10^3/uL (1.8-7.7) 09/23/23 17:48 Lymph # (Auto) 2.3 10^3/uL (0.8-4.8) 09/23/23 17:48 Clarke # (Auto) 0.4 10^3/uL (0.2-0.9) 09/23/23 17:48 Eos # (Auto) 0.3 10^3/uL (0.0-0.8) 09/23/23 17:48 Baso # (Auto) 0.0 10^3/uL (0.0-0.1) 09/23/23 17:48 Nucleated RBC % (auto) 0 % 09/23/23 17:48 Nucleated RBCs # 0.0 /100WBC 09/23/23 17:48 PT 12.30 SECONDS (12.1-14.9) 09/23/23 17:48 INR 0.89 (0.8-1.2) 09/23/23 17:48 Sodium 136 mmol/L (136-145) 09/23/23 17:48 Potassium 4.2 mmol/L (3.5-5.1) 09/23/23 17:48 Chloride 99 mmol/L (98-107) 09/23/23 17:48 Carbon Dioxide 26 mmol/L (22-29) 09/23/23 17:48 Anion Gap 15.2 (5-19) 09/23/23 17:48 BUN 8 mg/dL (6-20) 09/23/23 17:48 Creatinine 0.5 mg/dL (0.5-0.9) 09/23/23 17:48 GFR Calculation 134.0 mL/min (90-130) H 09/23/23 17:48 Glucose 362 mg/dL (65-115) H 09/23/23 17:48 Estimat Average Glucose 266 09/23/23 17:48 Hemoglobin A1c 10.9 % (4.0-6.0) H 09/23/23 17:48 Calculated Osmolality 295 mOsm/kg (285-295) 09/23/23 17:48 Calcium 9.6 mg/dL (8.5-10.5) 09/23/23 17:48 Total Bilirubin 0.3 mg/dL (0.15-1.2) 09/23/23 17:48 AST 20 U/L (0-32) 09/23/23 17:48 ALT 23 U/L (0-33) 09/23/23 17:48 Alkaline Phosphatase 113 U/L (35-105) H 09/23/23 17:48 Troponin T Baseline 18 ng/L (0-10) H 09/23/23 17:48 Troponin T 120 Minute 6.00 ng/L (0-10) 09/23/23 20:00 Delta Troponin T -12.00 ABS# (0-10) L 09/23/23 20:00 NT-Pro-B Natriuret Pep 61 pg/mL (0-125) 09/23/23 17:48 Total Protein 6.1 g/dL (6.6-8.7) L 09/23/23 17:48 Albumin 4.0 g/dL (3.5-5.2) 09/23/23 17:48 Globulin 2.1 g/dL (1.3-4.6) 09/23/23 17:48 Lipase 29 U/L (13-60) 09/23/23 17:48 All radiology interpretation(s) finalized by discharge EKG Data EKG 1: Interpretation: Twelve-lead EKG at 1709 and reviewed at 1710 demonstrates sinus rhythm, ventricular rate 89, MI interval 191, QRS duration 92, QT 347, QTc 394 there is significant motion artifact and respiration variant noted on the EKG. At present there is no significant ST elevation or depression noted. Discharge Plan Discharge Patient Disposition: Admitted As Inpatient Admit Provider: Jeff Edwards Clinical Impression: Acute non-ST elevation myocardial infarction (NSTEMI) Chest pain Qualifiers: Chest pain type: unspecified Qualified Code(s): R07.9 - Chest pain, unspecified Condition: Stable Coding Level of Care Code ED Senior Technical Specialist for Alcides Biggs
--- NOTE | 2023-09-23 17:17 | XRR_ITS ---
PROCEDURE INFORMATION: Exam: XR Chest Exam date and time: 09/23/2023 5:31 PM Age: 42 years old Clinical indication: Chest wall pain; Additional info: Cxp TECHNIQUE: Imaging protocol: Radiologic exam of the chest. Views: 1 view. COMPARISON: CR XR chest 1V portable [id number] 10/24/2022 1:11 PM FINDINGS: Lungs: No consolidation. Pleural spaces: Unremarkable. No pleural effusion. No pneumothorax. Heart/Mediastinum: The cardiomediastinal silhouette is within normal limits. Diaphragm: Stable mild elevation of the right hemidiaphragm. Bones/joints: No acute osseous abnormalities are seen. XR/XR chest 1V portable [id number] IMPRESSION: No acute cardiopulmonary disease.
[2023-09-23 18:03] LABS: Basophils % 0.4 %; Eosinophils # 0.3 10^3/uL (0.0-0.8); Eosinophils % 2.7 %; Hematocrit 45.2 % (36-47); Lymphocytes # 2.3 10^3/uL (0.8-4.8); Lymphocytes % 25.4 %; Mean Corpuscular HGB Conc 34.1 g/dL (30-55); Mean Corpuscular Hemoglobin 29.3 pg (27-33); Mean Corpuscular Volume 86.1 fl (85-98); Mean Platelet Volume 12.8 fL (7.4-10.4); Monocytes # 0.4 10^3/uL (0.2-0.9); Monocytes % 4.3 %; Neutrophils # 6.11 10^3/uL (1.8-7.7); Neutrophils % 66.7 %; Nucleated Red Blood Cells % 0 %; Platelet Count 188 10^3/cmm (157-399); Red Blood Count 5.25 10^6/uL (3.85-5.65); Red Cell Distribution Width 12.3 % (12.1-15.1); White Blood Count 9.17 10^3/uL (3.29-11.43)
[2023-09-23 18:17] LABS: INR 0.89 (0.8-1.2)
[2023-09-23 18:22] LABS: Troponin(5th) Baseline 18 ng/L (0-10)
[2023-09-23 18:24] LABS: Alanine Aminotransferase 23 U/L (0-33); Alkaline Phosphatase 113 U/L (35-105); Anion Gap 15.2 (5-19); Aspartate Amino Transferase 20 U/L (0-32); Blood Urea Nitrogen 8 mg/dL (6-20); Calcium 9.6 mg/dL (8.5-10.5); Carbon Dioxide 26 mmol/L (22-29); Chloride 99 mmol/L (98-107); Creatinine Clr Calc Pharmacy 170.6265; Globulin 2.1 g/dL (1.3-4.6); Glucose 362 mg/dL (65-115); Lipase 29 U/L (13-60); Osmolality Calculated 295 mOsm/kg (285-295); Potassium 4.2 mmol/L (3.5-5.1); Sodium 136 mmol/L (136-145); Total Bilirubin 0.3 mg/dL (0.15-1.2); Total Protein 6.1 g/dL (6.6-8.7)
--- NOTE | 2023-09-23 19:07 | ECG_ITS ---
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 Measurements Intervals [place] Rate: 69 P: 71 AK: 207 QRS: -63 QRSD: 90 T: 51 QT: 395 QTc: 424 Interpretive Statements SINUS RHYTHM LOW QRS VOLTAGE IN PRECORDIAL LEADS [QRS DEFLECTION < 1.0 mV IN CHEST LEADS] POSSIBLE RIGHT VENTRICULAR CONDUCTION DELAY [RSR (QR) IN V1/V2] LEFT ANTERIOR FASCICULAR BLOCK [QRS AXIS <= -45, QR IN I, RS IN II] Compared to ECG 09/23/2023 17:09:44 Myocardial infarct finding no longer present Electronically Signed On 09-24-2023 13:21:43 CDT by Jae Calzada M.D. [id number]
--- NOTE | 2023-09-23 22:21 | PM.HP ---
Providers/Chief Complaint Admitting Physician: Jeff Edwards MD Primary Care Provider: Moris Null DO Chief Complaint: Chest pains History of Present Illness Julissa Avalos is a 42 year old female with a past medical history of obesity, type 2 diabetes mellitus, insulin-dependent, who presents [facility] for chest pain. Patient tells me that recently she has been out under a lot of stress, her mother roughly 3 weeks ago she had been dealing with stress, today she started develop left-sided substernal chest pain radiating down her left arm, no shortness of breath no diaphoresis no prior history of chest pain, her blood sugars have been running higher, in the 300s, she is taking all her medications as prescribed Review of Systems Const: Denies: fever(s) Card: Reports: chest pain Resp: Denies: dyspnea Medications/Allergies Home Medications Medication Instructions Recorded Confirmed Last Taken Type diabetic supplies, miscellan. #1 ea 08/22/22 08/28/23 Unknown Rx albuterol sulfate 90 mcg/actuation 2 inh inhalation Q6H PRN shortness 09/13/22 08/28/23 Unknown Rx aerosol inhaler of breath or wheezing #6.7 grams insulin glargine 100 unit/mL 25 unit SUBCUT DAILY 12/29/22 08/28/23 02/28/23 History subcutaneous solution (Lantus U-100 Insulin) ondansetron 4 mg disintegrating 4 mg PO Q8H PRN nausea and 12/29/22 08/28/23 02/28/23 Rx tablet vomiting #20 tabs insulin aspart U-100 100 unit/mL 40 unit (0.4 mL) SUBCUT TID #30 mL 01/10/23 08/28/23 02/28/23 Rx (3 mL) subcutaneous pen (Novolog FlexPen U-100 Insulin aspart) gabapentin 300 mg capsule See Rx Instructions .Route 02/27/23 08/28/23 02/28/23 Rx .COMPLEX #120 caps docusate sodium 100 mg capsule 100 mg PO BID #14 caps 03/01/23 08/28/23 Unknown Rx (Dulcolax Stool Softener (docusate)) omeprazole 40 mg capsule,delayed 40 mg PO DAILY #90 caps 04/17/23 08/28/23 Unknown Rx release glucometer and strips 100 #1 ea 05/28/23 08/28/23 Unknown Rx metoclopramide HCl 10 mg tablet 10 mg PO Q6H PRN nausea and 06/03/23 08/28/23 Unknown Rx (Reglan) vomiting #20 tabs liraglutide 0.6 mg/0.1 mL (18 mg/3 See Rx Instructions SUBCUT 06/06/23 08/28/23 Unknown Rx mL) subcutaneous pen injector .COMPLEX #6 mL (Victoza 2-Eduardo) tizanidine 4 mg tablet See Rx Instructions .Route 07/03/23 08/28/23 Unknown Rx .COMPLEX #90 tabs tramadol 50 mg tablet 50 mg PO TID PRN pain #90 tabs 07/03/23 08/28/23 Unknown Rx cariprazine 3 mg capsule (Vraylar) 3 mg PO .HS #30 caps 07/18/23 08/28/23 Unknown Rx citalopram 20 mg tablet (Celexa) 20 mg PO DAILY #30 tabs 07/18/23 08/28/23 Unknown Rx eszopiclone 3 mg tablet (Lunesta) 3 mg PO .HS #30 tabs 07/18/23 08/28/23 Unknown Rx prazosin 2 mg capsule 4 mg (2 x 2 mg) PO .HS #60 caps 07/18/23 08/28/23 Unknown Rx diclofenac sodium 75 mg 75 mg PO BID #20 tabs 08/02/23 08/28/23 Unknown Rx tablet,delayed release blood sugar diagnostic (Blood #200 ea 08/09/23 08/28/23 Unknown Rx Glucose Test strips) cetirizine 10 mg tablet 10 mg PO DAILY@0900 PRN Allergic 08/28/23 08/28/23 Unknown Rx Symptoms #30 tabs permethrin 5 % topical cream 1 applic topical Q14D 2 doses #60 08/28/23 08/28/23 Unknown Rx grams pen needle, diabetic 32 gauge x #100 ea 09/05/23 Unknown Rx 5/32 (Comfort EZ Pen [place]) syringe with needle 6 mL (Monoject #300 ea 09/05/23 Unknown Rx Safety Syringes) Allergies Allergy/AdvReac Type Severity Reaction Status Date / Time codeine Allergy Intermediate HALLUCINATI Verified 09/13/23 11:47 ONS latex Allergy Intermediate HIVES Verified 09/13/23 11:47 aspirin Allergy RASH Verified 09/13/23 11:47 oxycodone [From Percocet] Allergy RASH Verified 09/13/23 11:47 topiramate [From Topamax] Allergy RASH Verified 09/13/23 11:47 sumatriptan AdvReac Intermediate SOB; Verified 09/13/23 11:47 WHEEZING; DIZZINESS PFSH Acute PFSH: Medical History Insomnia Uncontrolled diabetes mellitus Urolithiasis Morbid obesity Bipolar 2 disorder Post-traumatic stress disorder, chronic Nicotine dependence, cigarettes, uncomplicated Psychiatric care Urgency incontinence Major depressive disorder without psychotic features DM2 (diabetes mellitus, type 2) Dyslipidemia Low back pain with sciatica Hypothyroidism History of abdominal hernia X2 Surgical History Hx laparoscopic cholecystectomy 03/01/23 Dr. Alarcon Hx of colonoscopy 2010 History of hernia repair Hx of knee surgery right H/O: hysterectomy Hx of appendectomy Hx of laparoscopic gastric banding Family History Mother CAD (coronary artery disease) Stroke Father CAD (coronary artery disease) Other Cancer Diabetes Hypertension Social History Smoking and tobacco/nicotine status: current every day tobacco/nicotine user cigarettes Packs smoked per day: 1 Years cigarettes smoked: 28 Alcohol intake: never Substance/Drug Use: never Household members: family Housing: House Marital status: Legally Current occupational status: employed Female Reproductive History: Spontaneous abortions: No Vitals/I&O/Wt Last Vital Signs Temp 98.1 F 09/23/23 17:09 Pulse 74 09/23/23 21:58 Resp 18 09/23/23 21:58 BP 142/93 09/23/23 21:58 Pulse Ox 91 09/23/23 21:58 O2 Del Method Room Air 09/23/23 21:58 Weight last 48 hrs Weight 106.141 kg Physical Exam Const: COMMON NORMALS: no acute distress and patient oriented x3 HENMT: COMMON NORMALS: normocephalic HEAD & SCALP: normocephalic Eye: COMMON NORMALS: Equal, round and reactive pupils present and EOMs intact bilaterally Neck/C-Spine: COMMON NORMALS: no JVD Resp: COMMON NORMALS: normal respiratory effort, No retractions, No use of accessory muscles and clear to auscultation bilaterally AUSCULTATION: clear to auscultation bilaterally Cardio: COMMON NORMALS: regular rate, regular rhythm, S1 normal heart sound present and S2 normal heart sound present RATE: regular rate RHYTHM: regular rhythm HEART SOUNDS: S1 normal heart sound present and S2 normal heart sound present GI: COMMON NORMALS: Normal to inspection, nondistended, normoactive bowel sounds present, Soft to palpation and non-tender Extremity: COMMON NORMALS: no pedal edema Neuro: COMMON NORMALS: patient oriented x3, CN's II-XII intact bilaterally and moves all extremities Psych: COMMON NORMALS: mental status grossly normal Data 09/23/23 17:48 09/23/23 17:48 A&P Assessment and plan (1) Chest pain: Qualifiers: Chest pain type: unspecified Qualified Code(s): R07.9 - Chest pain, unspecified (2) DM2 (diabetes mellitus, type 2): Qualifiers: Diabetes mellitus long term care phlebotomist insulin use: with mcfp use Diabetes mellitus complication status: without complication Qualified Code(s): E11.9 - Type 2 diabetes mellitus without complications; Z79.4 - technician terminal and repeater (current) use of insulin (3) Hypothyroidism: Qualifiers: Hypothyroidism type: acquired Qualified Code(s): E03.9 - Hypothyroidism, unspecified (4) Morbid obesity: (5) Dyslipidemia: (6) Bipolar 2 disorder: Plan Chest pain -Serial EKGs, serial troponins, telemetry monitoring -Has aspirin allergy, has a rash, will give her 75 mg p.o. Plavix -Continue statin, -Coreg 3.125 twice daily ? Nitro as needed for chest pain -Cardiac echo -N.p.o. midnight, for cardiac stress test tomorrow morning ? Decrease Lantus to 10 units at bedtime, moderate dose sliding scale -Due to increased anxiety I will to add on Xanax 0.25 mg twice daily for anxiety episode ? Check lipid panel, A1c -Full code ? Lovenox for DVT prophylaxis Attestations Medical Necessity Statement*: Patient requires hospitalization, outpatient observation, for chest pain Diagnoses Chest pain R07.9 Chest pain type: unspecified Type 2 diabetes mellitus without complication, with long-term current use of insulin E11.9; Z79.4 Diabetes mellitus long term care phlebotomist insulin use: with mcfp use Diabetes mellitus complication status: without complication Acquired hypothyroidism E03.9 Hypothyroidism type: acquired Morbid obesity E66.01 Dyslipidemia E78.5 Bipolar 2 disorder F31.81
[2023-09-23] MEDS: heparin 5,000 unit/mL INJ 1 mL 4000 UNIT IVP (22:25)
--- NOTE | 2023-09-23 22:36 | ECG_ITS ---
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 Interpretive Statements NAME OF STUDY: LEXISCAN SESTAMIBI STRESS TEST INDICATION: [Chest Pain, ] Procedure: At the baseline, the blood pressure was 112/76 mmHg with a heart rate of 73 bpm. The electrocardiogram showed normal sinus rhythm, normal axis with normal ST and T's. The Lexiscan was infused over a period of 20 seconds. A total of 0.4 mg of Lexiscan was infused. The stress phase was continued for a total of 5 minutes. Heart rate was at the end of stress phase was 91 bpm and a blood pressure of 122/73 mmHg. The EKG at the peak infusion revealed normal sinus rhythm with no significant ST-T wave changes. Sestamibi was injected 20 seconds after the Lexiscan infusion. Blood pressure at the end of recovery phase was 124/81 mmHg with a heart rate of 92 bpm. Conclusion: 1. Normal EKG response to Lexiscan infusion 2. No Lexiscan induced chest pain or cardiac arrhythmia. 3. Normal blood pressure and heart rate response. 4. Sestamibi/sestamibi perfusion scan pending; see separate report. Electronically Signed On 10-04-2023 12:19:57 CDT by Jae Calzada M.D. [id number]
[2023-09-23 22:48] LABS: Glucose Point of Care 194 mg/dL (70-110)
[2023-09-23 22:52] LABS: NT Pro B Type Natriuretic Pept 61 pg/mL (0-125)
[2023-09-23] MEDS: clopidogrel 75 mg Tablet PO (23:00)
[2023-09-23] MEDS: gabapentin 300 mg Capsule 600 MG PO (23:00)
[2023-09-23] MEDS: atorvastatin 40 mg Tablet PO (23:00)
[2023-09-23] MEDS: enoxaparin 40 mg/0.4 mL Syringe SUBCUT (23:00)
[2023-09-23] MEDS: prazosin 1 mg Capsule 4 MG PO (23:00)
[2023-09-23] MEDS: carvedilol 3.125 mg Tablet PO (23:00)
[2023-09-23 23:04] LABS: Estmated Average Glucose 266; Hemoglobin A1C 10.9 % (4.0-6.0)
--- NOTE | 2023-09-23 23:07 | ECG_ITS ---
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 Measurements Intervals [place] Rate: 66 P: 66 ND: 208 QRS: -67 QRSD: 85 T: 33 QT: 386 QTc: 406 Interpretive Statements SINUS RHYTHM LEFT AXIS DEVIATION [QRS AXIS < -30] LOW QRS VOLTAGE IN PRECORDIAL LEADS [QRS DEFLECTION < 1.0 mV IN CHEST LEADS] POSSIBLE RIGHT VENTRICULAR CONDUCTION DELAY [RSR (QR) IN V1/V2] Compared to ECG 09/23/2023 19:21:48 Left-axis deviation now present Left anterior fascicular block no longer present Electronically Signed On 09-24-2023 13:21:30 CDT by Jae Calzada M.D. [id number]
[2023-09-23] MEDS: insulin glargine 100 units/1 mL 10 UNIT SUBCUT (23:28)
[2023-09-23 23:40] LABS: Chol HDL Ratio 6.16 mg/dL (0.0-4.40); Cholesterol 197 mg/dL (0-200); HDL Cholesterol 32 mg/dL (60-100); Thyroid Stimulating Hormone 1.84 uIU/mL (0.27-4.20); Triglycerides 421 mg/dL (0-150)
[2023-09-24] VITALS (13 sets, daily range): BP systolic 107–134; BP diastolic 71–87; PULSE 58–91; RESP 14–20; TEMP 36.3–36.6; O2SAT 92–100
[2023-09-24 00:10] LABS: LDL Cholesterol Direct 102 mg/dL (0-100)
[2023-09-24 00:59] LABS: Basophils % 0.4 %; Eosinophils # 0.3 10^3/uL (0.0-0.8); Eosinophils % 3.1 %; Hematocrit 43.6 % (36-47); Lymphocytes # 3.8 10^3/uL (0.8-4.8); Mean Corpuscular HGB Conc 34.6 g/dL (30-55); Mean Corpuscular Hemoglobin 29.2 pg (27-33); Mean Corpuscular Volume 84.3 fl (85-98); Mean Platelet Volume 13.1 fL (7.4-10.4); Monocytes # 0.5 10^3/uL (0.2-0.9); Monocytes % 4.6 %; Neutrophils # 5.14 10^3/uL (1.8-7.7); Neutrophils % 52.5 %; Nucleated Red Blood Cells % 0 %; Platelet Count 203 10^3/cmm (157-399); Red Blood Count 5.17 10^6/uL (3.85-5.65); Red Cell Distribution Width 12.1 % (12.1-15.1); White Blood Count 9.78 10^3/uL (3.29-11.43)
[2023-09-24 01:04] LABS: Anion Gap 12.2 (5-19); Blood Urea Nitrogen 7 mg/dL (6-20); Calcium 9.3 mg/dL (8.5-10.5); Carbon Dioxide 29 mmol/L (22-29); Chloride 102 mmol/L (98-107); Creatinine Clr Calc Pharmacy 219.7601; Glomerular Filtration Rate 173.4 mL/min (90-130); Glucose 209 mg/dL (65-115); Magnesium 1.8 mg/dL (1.7-2.3); Osmolality Calculated 292 mOsm/kg (285-295); Phosphorus 3.7 mg/dL (2.5-4.5); Potassium 4.2 mmol/L (3.5-5.1); Sodium 139 mmol/L (136-145)
[2023-09-24 06:26] LABS: Glucose Point of Care 214 mg/dL (70-110)
[2023-09-24] MEDS: regadenoson 0.4 Mg/5 ml Syringe 0.400000000000000022 MG IVP (07:23)
--- NOTE | 2023-09-24 08:00 | NMCV_ITS ---
NM bart perf SPECT r/s* [id number] Julissa Avalos Age: 42 Gender: F : 1980 Exam Date: 09/24/2023 06:27 Ordering Phys: Jeff Edwards MD Technologist: IGNACIO Alvarez Exam Location: [facility] Indications: CHEST PAIN STRESS TEST Please [facility] IMAGE PROTOCOL Rest/Stress 1 Lexiscan Day Radiopharmaceutical Dose (mCi) Administration Site Administered by Rest: Tc-99m 10.2 IV IGNACIO Coulter Sestamibi Stress:Tc-99m 33.0 IV IGNACIO Coulter Sestamibi Rest: 24-Sep-2023 60 Discovery 630 Stress: 24-Sep-2023 30 Discovery 630 0.4mg Lexiscan. Images obtained in supine and prone position. SPECT RESULTS Technical Quality: Excellent Raw Data Analysis: Normal Image Corrections: No attenuation or motion correction applied Summed Stress Score: 2 Summed Rest Score: 3 Summed Difference Score: 2 PERFUSION FINDINGS There is a small sized, mild intensity, reversible perfusion defect noted in apical lateral wall. This is consistent with small area of ischemia in left circumflex artery territory. FUNCTIONAL RESULTS (calculated via Gated SPECT) Stress Image LV EF (%): 75 Stress EDV (mL):101 TID: 0.71 Stress ESV (mL):25 FUNCTIONAL FINDINGS: There is normal left ventricular systolic function. IMPRESSIONS 1. Small area of ischemia seen in left circumflex artery territory. 2. LV systolic function is normal Jae Calzada MD (Electronically Signed) Final Date: 24 September 2023 12:03 S
--- NOTE | 2023-09-24 08:07 | PC.PHAR ---
pt in stress test per ms nurse-nurse unsure how long test will take-will check back to complete med rec
[2023-09-24] MEDS: citalopram 20 mg Tablet PO (08:24)
[2023-09-24] MEDS: carvedilol 3.125 mg Tablet PO ×2 (08:24→18:03)
[2023-09-24] MEDS: gabapentin 300 mg Capsule PO ×2 (08:24→13:05)
[2023-09-24] MEDS: insulin lispro 100 unit/1 mL SUBCUT ×3 (08:24→18:03)
[2023-09-24] MEDS: pantoprazole DR 40 mg Tablet PO (08:24)
[2023-09-24] MEDS: acetaminophen 325 mg Tablet 650 MG PO (08:43)
--- NOTE | 2023-09-24 09:50 | PC.PHAR ---
pt states she takes care of her own medications-pt states she no longer has any kind of inhalers-pt states she had a build up of her novolog flexpen and lantus u-100 vial- pt states uses novolog flexpen u-100 ss tid ext shows last filled 40units tid filled 01/10/23 21d/s-pt states uses lantus u-100 35 units hs ext shows last filled 10/03/22 40 units daily- pt states victoza was not covered by insurance never started-notes are made in the pharmacy comments
--- NOTE | 2023-09-24 10:13 | PC.CHAP ---
Pastoral Care Encounter/Spiritual Assessment Type of Contact [] Declined licensed sales assistant visit [] Patient/Family/Request visit [] Outpatient visit [] Follow-up visit [] Physician referral [] Code/Alert [X] Routine visit [] Staff referral [] Actively dying [X] Patient sleeping [] Family support [] [] Out of room [] Palliative care [] [] Receiving care in room [] Pre-surgical visit [] Trauma [] Long length of stay [] ICU visit [] Other: Relational/Emotional Strength [] Patient feels connected with others/family/visitors/staff [] Distress [] Loneliness/isolation [] Abandonment Spirituality of Patient [] Person of Charlene [] Attends Confucianist of their Charlene [] Believes in Prayer [] Reads Bible or Islam materials [] There are Spiritual issues to be addressed Field Service Technician Poultry Interventions [X] Prayer [] Active listening [] Non-anxious presence [] Spiritual/emotional support [] Crisis/trauma care [] Spiritual counseling [] Bereavement support [] Provided bereavement packet [] Provided Bible/devotional materials [] Provided toy/stuffed animal, coloring book to patient or family member [] Provided Communion [] Anointing/[place]ard [] Salvation [] Completed spiritual assessment [] Other: Impact on Illness or Injury [] Angry [] Fearful [] Anxious [] Often cries [] Exhaustion [] Unable to work [] Unable to attend yazdanism [] Unable to walk/stand [] Unable to read [] Unable to drive [] Unable to eat/drink [] Unable to sleep [] Unable to be with family [] Patient intubated [] Other: Summary Time spent with patient
--- NOTE | 2023-09-24 10:30 | USCV_ITS ---
Julissa Avalos Age: 42 Gender: F : 1980 Exam Date: 09/24/2023 10:28 Ordering Phys: Jeff Edwards MD Technologist: [place] [facility] [place]: chest pain BP: 134 / 73 HR: 66 Rhythm: Sinus Technical Quality: Adequate MEASUREMENTS (Male / Female) Normal Values 2D ECHO LV Diastolic Diameter PLAX 4.7 cm 4.2 - 5.9 / 3.9 - 5.3 cm IVS Diastolic Thickness 1.1 cm 0.6 - 1.0 / 0.6 - 0.9 cm IVS Systolic Thickness 1.5 cm LVPW Diastolic Thickness 1.0 cm 0.6 - 1.0 / 0.6 - 0.9 cm LVPW Systolic Thickness 1.5 cm LVOT Diameter 2.1 cm LV Ejection Fraction 2D Teich 65.2 % LV Ejection Fraction MOD 2C 64.7 % LV Ejection Fraction 2C AL 64.8 % LA Diameter 3.7 cm RA Systolic Volume 4C AL 43.2 ml RA Systolic Volume 4C MOD 40.2 ml Aorta at Sinotubular Diameter 3.0 cm M-MODE LA Ao Ratio MM 1.3 AV Cusp Separation MM 3.0 cm DOPPLER AV Peak Velocity 125.0 cm/s LVOT Peak Velocity 89.0 cm/s AV Area Cont Eq vti 2.5 cm squared AV Area Cont Eq pk 2.4 cm squared MV Peak Velocity 99.0 cm/s MV Area PHT 3.7 cm squared Mitral E to A Ratio 1.2 TV Peak Velocity 173.5 cm/s TR Peak Velocity 181.0 cm/s TR Peak Gradient 13.1 mmHg TV Peak E Velocity 111.0 cm/s Right Atrial Pressure 3.0 mmHg Pulmonary Artery Systolic Pressu 16.1 mmHg PV Peak Velocity 98.0 cm/s FINDINGS Left Ventricle Normal left ventricular size and systolic function, 64%. No regional wall motion abnormalities. Right Ventricle The right ventricle is normal in size and function. Right Atrium The right atrium is normal in size. Left Atrium Upper limit of normal size Mitral Valve Trace mitral valve regurgitation. Aortic Valve No gross abnormalities noted Tricuspid Valve Trace tricuspid valve regurgitation. Pulmonic Valve No gross abnormalities noted Pericardium Normal pericardium without effusion. Aorta Normal ascending aorta dimension. IVC The inferior vena cava appears normal. CONCLUSIONS Normal left ventricular size and systolic function, 64%. No regional wall motion abnormalities. Trace mitral valve regurgitation. Trace tricuspid valve regurgitation. There is no pericardial effusion. There are no intracardiac masses. Compared to the study from 04/10/2019, there may not be a significant change Dr Maurisio Andrade MD [facility] (Electronically Signed) Final Date: 24 September 2023 14:27 S
--- NOTE | 2023-09-24 10:45 | P.PN_ITS ---
Subjective 2 Subjective: Seen at bedside this AM after stress test no CP this AM at rest. states when she went to walk to the bathroom she developed some squeezing CP. states it only occures on exertion, not at rest. significant Fx for OK and HF in both parents. Vitals/I&O/Wt Last Vital Signs Temp 97.8 F 09/24/23 08:00 Pulse 70 09/24/23 08:39 Resp 18 09/24/23 08:00 BP 124/81 09/24/23 08:00 Pulse Ox 94 09/24/23 08:39 O2 Del Method Room Air 09/24/23 08:00 FiO2 21 09/24/23 08:39 Weight last 48 hrs Weight 247 lb 8 oz Weight 246 lb 9.6 oz Weight 234 lb Physical Exam 2 Narrative: General: AOx3, no acute distress, well developed, well nourished, appears stated age psych: appropriate mood and affect. good judgment and insight. No suicidal or homicidal ideation. Head: atraumatic, normocephalic, no mass/lesions Ears: clear external auditory canals, Hearing intact Eyes: conjunctiva clear w/o exudate or hemorrhage. non-icteric, EOM intact, PERRLA. no signs of nystagmus Nose: nasal mucosa pink, septum midline Oropharynx: poor dentition, pink moist mucosa, non-deviated tongue, no buccal nodules/lesions. no pharyngeal exudate Neck: FROM, no lymphadenopathy Chest: atraumatic, symmetrical CVD: RRR, normal S1 and S2, no M/R/G. 2+ pulse x 4 extremities, no JVD, no carotid bruit. Lungs: clear lung sounds in all snider, no rhonchi, wheezing, rales. Abdomen: morbid obesity,NT, ND, soft, NABS. No hepatosplenomegaly, no mass. umbilicus midline w/o herniation Skin:? no rash, vesicles, lesions. Data 09/24/23 00:00 09/24/23 00:00 A&P Assessment and plan (1) Chest pain: Qualifiers: Chest pain type: unspecified Qualified Code(s): R07.9 - Chest pain, unspecified (2) DM2 (diabetes mellitus, type 2): Qualifiers: Diabetes mellitus complication status: without complication Diabetes mellitus long-term insulin use: with associate agent insurance sales use Qualified Code(s): E11.9 - Type 2 diabetes mellitus without complications; Z79.4 - [place] se[place] (current) use of insulin (3) Hypothyroidism: Qualifiers: Hypothyroidism type: acquired Qualified Code(s): E03.9 - Hypothyroidism, unspecified (4) Morbid obesity: (5) Dyslipidemia: (6) Bipolar 2 disorder: Plan Chest pain -EKG's, troponins and telemetry negative for abnormalities -chest pain on movement. not at rest. will await Stress test. concerning for CAD. possibly needs angiogram -ECHO: EF 64%. no regional wall abnormalities. trace valvular abnormalities. no significant changes from 2019 plan -continue BIPAP -pending Stress test -continue coreg BID, statin, plavis -lantus 10u qhs, with moderate sliding scale insulin -Xanax added for anxiety -FULL CODE -Lovenox for DVT prophylaxis Attestations 2 Medical Necessity Statement*: will require 2 overnight stays for chest pain and CAD management Coding Level of Care Code Acute Code for Chg Fwd Diagnoses Chest pain R07.9 Chest pain type: unspecified Type 2 diabetes mellitus without complication, with long-term current use of insulin E11.9; Z79.4 Diabetes mellitus complication status: without complication Diabetes mellitus long-term insulin use: with long-term use Acquired hypothyroidism E03.9 Hypothyroidism type: acquired Morbid obesity E66.01 Dyslipidemia E78.5 Bipolar 2 disorder F31.81
[2023-09-24 10:46] LABS: Glucose Point of Care 192 mg/dL (70-110)
[2023-09-24 16:44] LABS: Glucose Point of Care 233 mg/dL (70-110)
[2023-09-24] MEDS: tizanidine 4 mg Tablet PO (18:03)
[2023-09-24] MEDS: prazosin 1 mg Capsule 4 MG PO (20:28)
[2023-09-24] MEDS: gabapentin 300 mg Capsule 600 MG PO (20:28)
[2023-09-24] MEDS: atorvastatin 40 mg Tablet PO (20:29)
[2023-09-24 20:50] LABS: Glucose Point of Care 186 mg/dL (70-110)
[2023-09-24] MEDS: insulin glargine 100 units/1 mL 10 UNIT SUBCUT (21:05)
[2023-09-24] MEDS: enoxaparin 40 mg/0.4 mL Syringe SUBCUT (22:07)
[2023-09-25] VITALS (14 sets, daily range): BP systolic 106–137; BP diastolic 72–92; PULSE 61–73; RESP 14–20; TEMP 36.3–37; O2SAT 91–96
[2023-09-25] MEDS: TRAMadol 50 mg Tablet PO (01:47)
[2023-09-25 05:22] LABS: Basophils % 0.3 %; Eosinophils # 0.3 10^3/uL (0.0-0.8); Eosinophils % 2.9 %; Hematocrit 42.9 % (36-47); Lymphocytes % 33.5 %; Mean Corpuscular HGB Conc 33.8 g/dL (30-55); Mean Corpuscular Hemoglobin 29.1 pg (27-33); Mean Platelet Volume 12.8 fL (7.4-10.4); Monocytes # 0.5 10^3/uL (0.2-0.9); Monocytes % 5.8 %; Neutrophils # 5.15 10^3/uL (1.8-7.7); Neutrophils % 57.2 %; Nucleated Red Blood Cells % 0 %; Platelet Count 211 10^3/cmm (157-399); Red Blood Count 4.99 10^6/uL (3.85-5.65); Red Cell Distribution Width 12.2 % (12.1-15.1); White Blood Count 9.01 10^3/uL (3.29-11.43)
[2023-09-25 05:54] LABS: Alanine Aminotransferase 23 U/L (0-33); Albumin Level 3.5 g/dL (3.5-5.2); Alkaline Phosphatase 97 U/L (35-105); Anion Gap 16.2 (5-19); Aspartate Amino Transferase 26 U/L (0-32); Blood Urea Nitrogen 8 mg/dL (6-20); Calcium 9.2 mg/dL (8.5-10.5); Carbon Dioxide 25 mmol/L (22-29); Chloride 101 mmol/L (98-107); Creatinine Clr Calc Pharmacy 176.1526; Globulin 2.7 g/dL (1.3-4.6); Glucose 253 mg/dL (65-115); Magnesium 1.8 mg/dL (1.7-2.3); Osmolality Calculated 293 mOsm/kg (285-295); Phosphorus 4.6 mg/dL (2.5-4.5); Potassium 4.2 mmol/L (3.5-5.1); Sodium 138 mmol/L (136-145); Total Bilirubin 0.4 mg/dL (0.15-1.2); Total Protein 6.2 g/dL (6.6-8.7)
[2023-09-25 06:28] LABS: Glucose Point of Care 219 mg/dL (70-110)
[2023-09-25] MEDS: carvedilol 3.125 mg Tablet PO ×2 (08:41→17:52)
[2023-09-25] MEDS: gabapentin 300 mg Capsule PO ×2 (08:41→12:34)
[2023-09-25] MEDS: pantoprazole DR 40 mg Tablet PO (08:41)
[2023-09-25] MEDS: insulin lispro 100 unit/1 mL SUBCUT ×3 (08:43→17:53)
[2023-09-25] MEDS: citalopram 20 mg Tablet PO (08:43)
--- NOTE | 2023-09-25 08:54 | PC.CHAP ---
Pastoral Care Encounter/Spiritual Assessment Type of Contact [] Declined loss prevention detective visit [] Patient/Family/Request visit [] Outpatient visit [] Follow-up visit [] Physician referral [] Code/Alert [x] Routine visit [] Staff referral [] Actively dying [] Patient sleeping [] Family support [] [] Out of room [] Palliative care [] [] Receiving care in room [] Pre-surgical visit [] Trauma [] Long length of stay [] ICU visit [] Other: Relational/Emotional Strength [x] Patient feels connected with others/family/visitors/staff [] Distress [] Loneliness/isolation [] Abandonment Spirituality of Patient [x] Person of Charlene [] Attends Restoration of their Charlene [x] Believes in Prayer [] Reads Bible or Mandaeism materials [] There are Spiritual issues to be addressed Orthotist Prosthetist Interventions [x] Prayer [x] Active listening [] Non-anxious presence [x] Spiritual/emotional support [] Crisis/trauma care [] Spiritual counseling [] Bereavement support [] Provided bereavement packet [] Provided Bible/devotional materials [] Provided toy/stuffed animal, coloring book to patient or family member [] Provided Communion [] Anointing/[place] [] Salvation [x] Completed spiritual assessment [] Other: Impact on Illness or Injury [] Angry [] Fearful [] Anxious [] Often cries [] Exhaustion [] Unable to work [] Unable to attend judaism [] Unable to walk/stand [] Unable to read [] Unable to drive [] Unable to eat/drink [] Unable to sleep [] Unable to be with family [] Patient intubated [] Other: Summary Time spent with patient 5 min
--- NOTE | 2023-09-25 09:01 | PM.PN ---
Subjective Subjective: seen this AM sitting at bedside eating lunch. states last night she developed CP while in the shower. stats this AM she is feeling improved. has not attempted much movement thus no CP. Medications: Reviewed: Yes Vitals/I&O/Wt Last Vital Signs Temp 97.8 F 09/25/23 08:00 Pulse 73 09/25/23 08:00 Resp 17 09/25/23 08:00 BP 106/72 09/25/23 08:00 Pulse Ox 91 09/25/23 08:00 O2 Del Method Room Air 09/25/23 08:00 FiO2 21 09/25/23 07:44 09/24/23 09/25/23 09/25/23 22:59 06:59 14:59 Intake Total 480 / 480 240 / 240 Balance 480 / 480 240 / 240 Weight last 48 hrs Weight 247 lb 7 oz Weight 247 lb 8 oz Weight 246 lb 9.6 oz Weight 234 lb Physical Exam Narrative: General: AOx3, no acute distress, well developed, well nourished, appears stated age psych: appropriate mood and affect. good judgment and insight. No suicidal or homicidal ideation. Chest: atraumatic, symmetrical CVD: RRR, normal S1 and S2, no M/R/G. 2+ pulse x 4 extremities, no JVD, no carotid bruit. no MELISSA Lungs: clear lung sounds in all snider, no rhonchi, wheezing, rales. Abdomen: morbid obesity,NT, ND Skin:? no rash, vesicles, lesions. Data 09/25/23 04:42 09/25/23 04:42 A&P Assessment and plan (1) Chest pain: Qualifiers: Chest pain type: unspecified Qualified Code(s): R07.9 - Chest pain, unspecified (2) DM2 (diabetes mellitus, type 2): Qualifiers: Diabetes mellitus complication status: without complication Diabetes mellitus group home insulin use: with demolition engineer use Qualified Code(s): E11.9 - Type 2 diabetes mellitus without complications; Z79.4 - traveling phlebotomist (current) use of insulin (3) Hypothyroidism: Qualifiers: Hypothyroidism type: acquired Qualified Code(s): E03.9 - Hypothyroidism, unspecified (4) Morbid obesity: (5) Dyslipidemia: (6) Bipolar 2 disorder: Plan Chest pain -EKG's, troponins and telemetry negative for abnormalities -chest pain on movement. not at rest. will await Stress test. -ECHO: EF 64%. no regional wall abnormalities. trace valvular abnormalities. no significant changes from 2019 -nuclear perfusion scan 09/24/23 1. Small area of ischemia seen in left circumflex artery territory. 2. LV systolic function is normal plan -continue BIPAP at night -pending Stress test result. -discussed and consulted Dr. Andrade. abnormal nuc perfusion scan with exertional CP. consulted for possible agniogram -continue coreg BID, statin, plavix -lantus 10u qhs, with moderate sliding scale insulin -Xanax added for anxiety -FULL CODE -Lovenox for DVT prophylaxis Attestations Medical Necessity Statement*: will require 2 overnight stays for chest pain Coding Level of Care Code 05402 Diagnoses Chest pain R07.9 Chest pain type: unspecified Type 2 diabetes mellitus without complication, with long-term current use of insulin E11.9; Z79.4 Diabetes mellitus complication status: without complication Diabetes mellitus group home insulin use: with demolition engineer use Acquired hypothyroidism E03.9 Hypothyroidism type: acquired Morbid obesity E66.01 Dyslipidemia E78.5 Bipolar 2 disorder F31.81
[2023-09-25 10:47] LABS: Glucose Point of Care 220 mg/dL (70-110)
[2023-09-25 16:44] LABS: Glucose Point of Care 189 mg/dL (70-110)
--- NOTE | 2023-09-25 18:52 | P.CONIM_ITS ---
Providers/Reason For Consult 2 Consulting Physician/Specialty*: HEIDI Andrade MD/cardiology Reason for Consult*: Patient with a chest pain and abnormal Myocardial perfusion imaging Requesting Physician: Dr. Winters Attending Physician: Delroy Blankenship MD Primary Care Provider: Moris Null DO History of Present Illness History of Present Illness Julissa Avalos is a 42 year old female Is admitted to hospital through the emergency room where she presented with complaints of chest pain. Myocardial infarction was ruled out. She had a Myocardial perfusion imaging which was abnormal. Cardiology consult is requested for further cardiac evaluation recommendations. This patient is known to have type 1 diabetes , morbid obesity, sleep apnea , Dyslipidemiaand essential benign hypertension. She apparently has been in her baseline state of health up until last Sunday when she started having mid substernal chest pain. 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 The pain radiated to the left shoulder, to the left side of the neck and the left arm. Intensity of the pain was moderate. She had associated shortness of breath, nausea, sweating and some palpitations. Because of the persistence of the symptoms, she was brought to the emergency room. The pain may have lasted for couple of hours and then gradually started subsiding. She did not have any other associated symptoms. She has no previous history for coronary disease, myocardial infarction or congestive heart failure. As of now she has no chest pain while resting in the bed. She gets up and walk around the floor, she started having chest tightness/heaviness. This patient has a strong family history for premature atherosclerotic heart disease. Her mother had a myocardial infarction at the age of 49. Father had coronary intervention in his 50s. Details are not available. Patient is with no children. She has been smoking a pack a day for the last 30 years or so. No alcohol abuse or any substance abuse. She may have lost around 50 pounds within the last 1 year. She been trying to lose some weight. She has been under a lot of stress lately especially since she lost her mother a few months ago. Review of Systems 2 Narrative: CONSTITUTIONAL: No fever or chills. Lost around 50 pounds in the last 1 year EYES: No blurring of vision or other visual disturbances lately. ENT: No hoarseness of voice, auditory disturbances or sore throat. CARDIOVASCULAR: As mentioned above. RESPIRATORY: No significant cough. GASTROINTESTINAL: No hematemesis or melena. GENITOURINARY: No dysuria or hematuria. INTEGUMENTARY: No skin rashes or history of skin cancer. NEURO: No transient ischemic attacks or amaurosis. PSYCHIATRIC: No history of psychosis or major depression. HEMATOLOGIC: No bleeding disorders or significant anemia. ENDOCRINE: type 1 diabetes? MUSCULOSKELETAL: No recent joint pain or swelling. ALLERGY/IMMUNOLOGY: As mentioned above. Medications/Allergies Home Medications Medication Instructions Recorded Confirmed Last Taken Type diabetic supplies, miscellan. #1 ea 08/22/22 09/24/23 Unknown Rx insulin glargine 100 unit/mL 35 unit SUBCUT BEDTIME 12/29/22 09/24/23 02/28/23 History subcutaneous solution (Lantus U-100 Insulin) ondansetron 4 mg disintegrating 4 mg PO Q8H PRN nausea and 12/29/22 09/24/23 02/28/23 Rx tablet vomiting #20 tabs gabapentin 300 mg capsule See Rx Instructions .Route 02/27/23 09/24/23 02/28/23 Rx .COMPLEX #120 caps omeprazole 40 mg capsule,delayed 40 mg PO DAILY #90 caps 04/17/23 09/24/23 Unknown Rx release glucometer and strips 100 #1 ea 05/28/23 09/24/23 Unknown Rx metoclopramide HCl 10 mg tablet 10 mg PO Q6H PRN nausea and 06/03/23 09/24/23 Unknown Rx (Reglan) vomiting #20 tabs tramadol 50 mg tablet 50 mg PO TID PRN pain #90 tabs 07/03/23 09/24/23 Unknown Rx blood sugar diagnostic (Blood #200 ea 08/09/23 09/24/23 Unknown Rx Glucose Test strips) cetirizine 10 mg tablet 10 mg PO DAILY@0900 PRN Allergic 08/28/23 09/24/23 Unknown Rx Symptoms #30 tabs pen needle, diabetic 32 gauge x #100 ea 09/05/23 09/24/23 Unknown Rx 5/32 (Comfort EZ Pen [facility]) syringe with needle 6 mL (Monoject #300 ea 09/05/23 09/24/23 Unknown Rx Safety Syringes) cariprazine 3 mg capsule (Vraylar) 3 mg PO BEDTIME 09/24/23 09/24/23 Unknown History citalopram 20 mg tablet 20 mg PO QAM 09/24/23 09/24/23 Unknown History eszopiclone 3 mg tablet 3 mg PO BEDTIME 09/24/23 09/24/23 Unknown History insulin aspart U-100 100 unit/mL See Rx Instructions .Route .COMPLEX 09/24/23 09/24/23 Unknown History (3 mL) subcutaneous pen (Novolog FlexPen U-100 Insulin aspart) prazosin 2 mg capsule 4 mg PO BEDTIME 09/24/23 09/24/23 Unknown History tizanidine 4 mg tablet 4 mg PO TID PRN Muscle Spasm 09/24/23 09/24/23 Unknown History Allergies Allergy/AdvReac Type Severity Reaction Status Date / Time codeine Allergy Intermediate HALLUCINATI Verified 09/24/23 09:49 ONS latex Allergy Intermediate HIVES Verified 09/24/23 09:49 aspirin Allergy RASH Verified 09/24/23 09:49 oxycodone [From Percocet] Allergy RASH Verified 09/24/23 09:49 topiramate [From Topamax] Allergy RASH Verified 09/24/23 09:49 sumatriptan AdvReac Intermediate SOB; Verified 09/24/23 09:49 WHEEZING; DIZZINESS Current Medications Generic Name Dose Route Start Last Admin Trade Name Freq PRN Reason Stop Dose Admin Acetaminophen 650 mg 09/24/23 08:31 09/24/23 08:43 Acetaminophen 325 Mg Tablet PO 650 mg Q6H PRN Administration MILD PAIN Atorvastatin Calcium 40 mg 09/23/23 22:36 09/24/23 20:29 Atorvastatin 40 Mg Tablet PO 40 mg BEDTIME TOD Administration Carvedilol 3.125 mg 09/23/23 22:36 09/25/23 17:52 Carvedilol 3.125 Mg Tablet PO 3.125 mg BID TOD Administration Citalopram Hydrobromide 20 mg 09/24/23 09:00 09/25/23 08:43 Citalopram 20 Mg Tablet PO 20 mg DAILY TOD Administration Citalopram Hydrobromide 20 mg 09/25/23 06:00 09/25/23 06:08 Citalopram 20 Mg Tablet PO Not Given QAM TOD Enoxaparin Sodium 40 mg 09/23/23 22:36 09/24/23 22:07 Enoxaparin 40 Mg/0.4 Ml Syringe SUBCUT 40 mg Q24H TOD Administration Gabapentin 600 mg 09/23/23 22:36 09/24/23 20:28 Gabapentin 300 Mg Capsule PO 600 mg BEDTIME TOD Administration Gabapentin 300 mg 09/24/23 09:00 09/25/23 12:34 Gabapentin 300 Mg Capsule PO 300 mg 0900,1200 TOD Administration Insulin Glargine 10 unit 09/23/23 22:36 09/24/23 21:05 Insulin Glargine 100 Units/1 Ml SUBCUT 10 unit BEDTIME TOD Administration Insulin Human Lispro 0 unit 09/24/23 08:00 09/25/23 17:53 Insulin Lispro 100 Unit/1 Ml SUBCUT 6 unit TIDWM TOD Administration Protocol Pantoprazole Sodium 40 mg 09/24/23 09:00 09/25/23 08:[address] 40 Mg Tablet PO 40 mg DAILY TOD Administration Prazosin HCl 4 mg 09/23/23 23:00 09/24/23 20:28 Prazosin 1 Mg Capsule PO 4 mg BEDTIME TOD Administration Tizanidine HCl 4 mg 09/24/23 15:22 09/24/23 18:03 Tizanidine 4 Mg Tablet PO 4 mg TID PRN Administration Muscle Spasm Tramadol HCl 50 mg 09/25/23 01:26 09/25/23 01:47 Tramadol 50 Mg Tablet PO 50 mg TID PRN Administration MODERATE PAIN PFSH Acute 2 PFSH: Medical History Insomnia Uncontrolled diabetes mellitus Urolithiasis Morbid obesity Bipolar 2 disorder Post-traumatic stress disorder, chronic Nicotine dependence, cigarettes, uncomplicated Psychiatric care Urgency incontinence Major depressive disorder without psychotic features DM2 (diabetes mellitus, type 2) Dyslipidemia Low back pain with sciatica Hypothyroidism History of abdominal hernia X2 Surgical History Hx laparoscopic cholecystectomy 03/01/23 Dr. Alarcon Hx of colonoscopy 2010 History of hernia repair Hx of knee surgery right H/O: hysterectomy Hx of appendectomy Hx of laparoscopic gastric banding Family History Mother CAD (coronary artery disease) Stroke Father CAD (coronary artery disease) Other Cancer Diabetes Hypertension Social History Smoking and tobacco/nicotine status: current every day tobacco/nicotine user cigarettes Packs smoked per day: 1 Years cigarettes smoked: 28 Alcohol intake: never Substance/Drug Use: never Household members: family Housing: House Marital status: Legally Current occupational status: employed Female Reproductive History: Spontaneous abortions: No Vitals/I&O/Wt Last Vital Signs Temp 97.3 F L 09/25/23 16:00 Pulse 62 09/25/23 16:00 Resp 16 09/25/23 16:00 BP 137/92 09/25/23 16:00 Pulse Ox 95 09/25/23 16:00 O2 Del Method Room Air 09/25/23 16:00 FiO2 21 09/25/23 13:50 09/25/23 09/25/23 09/25/23 06:59 14:59 22:59 Intake Total 480 / 480 240 / 720 Balance 480 / 480 240 / 720 Weight last 48 hrs Weight 247 lb 7 oz Weight 247 lb 8 oz Weight 246 lb 9.6 oz Data 09/25/23 04:42 09/25/23 04:42 Other Labs: Laboratory Last Values WBC 9.01 10^3/uL (3.29-11.43) 09/25/23 04:42 RBC 4.99 10^6/uL (3.85-5.65) 09/25/23 04:42 Hgb 14.50 g/dL (11.27-16.99) 09/25/23 04:42 Hct 42.9 % (36-47) 09/25/23 04:42 MCV 86.0 fl (85-98) 09/25/23 04:42 MCH 29.1 pg (27-33) 09/25/23 04:42 MCHC 33.8 g/dL (30-55) 09/25/23 04:42 RDW 12.2 % (12.1-15.1) 09/25/23 04:42 Plt Count 211 10^3/cmm (157-399) 09/25/23 04:42 MPV 12.8 fL (7.4-10.4) H 09/25/23 04:42 Neut % (Auto) 57.2 % 09/25/23 04:42 Lymph % (Auto) 33.5 % 09/25/23 04:42 [place] % (Auto) 5.8 % 09/25/23 04:42 Eos % (Auto) 2.9 % 09/25/23 04:42 Baso % (Auto) 0.3 % 09/25/23 04:42 Neut # (Auto) 5.15 10^3/uL (1.8-7.7) 09/25/23 04:42 Lymph # (Auto) 3.0 10^3/uL (0.8-4.8) 09/25/23 04:42 [place]aston # (Auto) 0.5 10^3/uL (0.2-0.9) 09/25/23 04:42 Eos # (Auto) 0.3 10^3/uL (0.0-0.8) 09/25/23 04:42 Baso # (Auto) 0.0 10^3/uL (0.0-0.1) 09/25/23 04:42 Nucleated RBC % (auto) 0 % 09/25/23 04:42 Nucleated RBCs # 0.0 /100WBC 09/25/23 04:42 PT 12.30 SECONDS (12.1-14.9) 09/23/23 17:48 INR 0.89 (0.8-1.2) 09/23/23 17:48 Sodium 138 mmol/L (136-145) 09/25/23 04:42 Potassium 4.2 mmol/L (3.5-5.1) 09/25/23 04:42 Chloride 101 mmol/L (98-107) 09/25/23 04:42 Carbon Dioxide 25 mmol/L (22-29) 09/25/23 04:42 Anion Gap 16.2 (5-19) 09/25/23 04:42 BUN 8 mg/dL (6-20) 09/25/23 04:42 Creatinine 0.5 mg/dL (0.5-0.9) 09/25/23 04:42 GFR Calculation 134.0 mL/min (90-130) H 09/25/23 04:42 Glucose 253 mg/dL (65-115) H 09/25/23 04:42 POC Glucose 189 mg/dL (70-110) H 09/25/23 16:38 Estimat Average Glucose 266 09/23/23 17:48 Hemoglobin A1c 10.9 % (4.0-6.0) H 09/23/23 17:48 Calculated Osmolality 293 mOsm/kg (285-295) 09/25/23 04:42 Calcium 9.2 mg/dL (8.5-10.5) 09/25/23 04:42 Phosphorus 4.6 mg/dL (2.5-4.5) H 09/25/23 04:42 Magnesium 1.8 mg/dL (1.7-2.3) 09/25/23 04:42 Total Bilirubin 0.4 mg/dL (0.15-1.2) 09/25/23 04:42 AST 26 U/L (0-32) 09/25/23 04:42 ALT 23 U/L (0-33) 09/25/23 04:42 Alkaline Phosphatase 97 U/L (35-105) 09/25/23 04:42 Troponin T Baseline 18 ng/L (0-10) H 09/23/23 17:48 Troponin T 120 Minute 6.00 ng/L (0-10) 09/23/23 20:00 Delta Troponin T -12.00 ABS# (0-10) L 09/23/23 20:00 Troponin T Hi Sens 6Hr 6.00 ng/L (0-10) 09/23/23 23:44 Troponin T Hi Sens 6Hr Delta -12.00 ng/L (0-12) L 09/23/23 23:44 NT-Pro-B Natriuret Pep 61 pg/mL (0-125) 09/23/23 17:48 Total Protein 6.2 g/dL (6.6-8.7) L 09/25/23 04:42 Albumin 3.5 g/dL (3.5-5.2) 09/25/23 04:42 Globulin 2.7 g/dL (1.3-4.6) 09/25/23 04:42 Triglycerides 421 mg/dL (0-150) H 09/23/23 Unknown Cholesterol 197 mg/dL (0-200) 09/23/23 Unknown LDL Cholesterol Direct 102 mg/dL (0-100) H 09/23/23 Unknown LDL Cholesterol, Calc Not Reportable 09/23/23 Unknown HDL Cholesterol 32 mg/dL (60-100) L 09/23/23 Unknown LDL/HDL Ratio Not Reportable 09/23/23 Unknown Cholesterol/HDL Ratio 6.16 mg/dL (0.0-4.40) H 09/23/23 Unknown Lipase 29 U/L (13-60) 09/23/23 17:48 TSH 1.84 uIU/mL (0.27-4.20) 09/23/23 Unknown EKG 1: My Interpretation: The EKG on 09/23/2023 revealed as normal sinus rhythm with a preoperative progression. Left axis deviation. Low voltage complexes in the precordial leads. Other data: Myocardial perfusion imaging on 09/24/2023 Small area of reversible defect in the distribution of the left circumflex artery. Normal LV ejection fraction of 75%. No significant wall motion abnormalities Echocardiogram done on 09/24/2023 Normal left ventricular size and systolic function, 64%. No regional wall motion abnormalities. Trace mitral valve regurgitation. Trace tricuspid valve regurgitation. There is no pericardial effusion. There are no intracardiac masses. Compared to the study from 04/10/2019, there may not be a significant change A&P Assessment and plan (1) Chest pain: The patient's prolonged episode of chest pain is suggestive of unstable angina. The EKG changes are nonspecific. In view of her multiple risk factors and the abnormal Myocardial perfusion imaging, most likely she may have underlying coronary artery disease causing the unstable anginal symptoms. Because of her ongoing chest pain with exertion, in order to further evaluate her coronary status, she may benefit from a cardiac catheterization. Qualifiers: Chest pain type: unspecified Qualified Code(s): R07.9 - Chest pain, unspecified (2) Morbid obesity: Patient is trying to lose weight. She already lost around 50 pounds within the last 1 year. (3) Uncontrolled diabetes mellitus: Her blood sugar seems to be getting under control. She seems to have type II on diabetes. Qualifiers: Diabetes mellitus type: type 2 Glycemic state: with hyperglycemia Qualified Code(s): E11.65 - Type 2 diabetes mellitus with hyperglycemia (4) Dyslipidemia: May continue on the current medications. (5) Nicotine dependence, cigarettes, uncomplicated: Strongly advised to quit smoking. (6) HOMER (obstructive sleep apnea): Patient is on CPAP. (7) Benign hypertension: The blood pressure seems to be getting under control. Need to optimize the antihypertensive medications. Plan The implications of all the test results were discussed with the patient. In view of her multiple factors including the family history of for premature atherosclerotic heart disease, in order to further evaluate her coronary status, a left heart catheterization with a coronary angiogram would be appropriate. The risk of bleeding, hematoma, vascular injury, myocardial infarction, myocardial perforation, malignant cardiac arrhythmias ,CVA, renal failure and other concomitant complications were explained in detail. Patient understood this well and consented to proceed. We may go ahead and do schedule the patient for a cardiac catheterization in the morning. Based on the results, further recommendations will be made. Since we do not have a surgical service if the patient requires open heart surgery,, she may need to be transferred to another facility. This also was discussed with the patient in detail which she understood well Coding Level of Care Code 21119 Diagnoses Chest pain R07.9 Chest pain type: unspecified Morbid obesity E66.01 Uncontrolled type 2 diabetes mellitus with hyperglycemia E11.65 Diabetes mellitus type: type 2 Glycemic state: with hyperglycemia Dyslipidemia E78.5 Nicotine dependence, cigarettes, uncomplicated F17.210 HOMER (obstructive sleep apnea) G47.33 Benign hypertension I10
[2023-09-25] MEDS: sodium chloride 0.9% 1,000 ML 50 ML IV (20:01)
[2023-09-25] MEDS: gabapentin 300 mg Capsule 600 MG PO (20:02)
[2023-09-25] MEDS: diphenhydrAMINE 50 mg Capsule PO (20:02)
[2023-09-25] MEDS: prazosin 1 mg Capsule 4 MG PO (20:02)
[2023-09-25] MEDS: atorvastatin 40 mg Tablet PO (20:02)
[2023-09-25] MEDS: insulin glargine 100 units/1 mL 10 UNIT SUBCUT (20:03)
[2023-09-25] MEDS: amlodipine 5 mg Tablet PO (20:03)
[2023-09-25] MEDS: clopidogrel 300 mg Tablet PO (20:03)
[2023-09-25 20:14] LABS: Glucose Point of Care 271 mg/dL (70-110)
[2023-09-25] MEDS: enoxaparin 40 mg/0.4 mL Syringe SUBCUT (22:22)
[2023-09-26] VITALS (57 sets, daily range): BP systolic 100–152; BP diastolic 62–108; PULSE 58–102; RESP 14–34; TEMP 36.3–36.4; O2SAT 89–95
[2023-09-26] MEDS: diphenhydrAMINE 50 mg Capsule PO (04:39)
--- NOTE | 2023-09-26 05:13 | XACV_ITS ---
Exam Room: [facility] Ht: 163 cm Wt: 112 kg BSA: 2.31 m2 Gender: Female : 1980 Any Known Allergies: Other Exam Priority: Routine Procedure(s): Procedure Description: Diagnostic procedure Procedure Description: Left Heart Catheterization Procedure Description: Left ventriculography Procedure Description: Coronary Angiography Raymond PASTRANA; Diagnostic Cath Status: Urgent Diagnostic Findings * The left main is a medium caliber vessel with no significant stenotic lesions. * The left anterior descending artery is a medium caliber vessel which appears to wraparound the LV apex minimally. The proximal to mid LAD was found to have 20 to 30% eccentric narrowing. The first diagonal branch was found to have minimal ostial narrowing. No other significant stenotic lesions were noted. * The left circumflex artery appears to be a codominant vessel. The first obtuse marginal branch was found to have around 30% ostial narrowing. The proximal segment of the first obtuse marginal artery have another segment of narrowing of around 30%. * The right coronary artery was found to have around 50% concentric narrowing just before the terminal bifurcation. The PDA and the PLV branches were found to have minimal intimal irregularities. The PLV branch appears to be rudimentary. Conclusions 1. This 42-year-old white female with multiple risk factors of coronary disease presenting with a prolonged episode of chest pain. Myocardial perfusion imaging revealing a small area of reversible defect in the distribution of the circumflex artery. Because of her ongoing chest symptoms, in order to further evaluate the coronary status, a cardiac catheterization was recommended. Patient underwent left heart catheterization with left and right coronary angiogram and LV angiogram today. The findings are as follows. 2. Mild diffuse coronary artery disease. Normal LV ejection fraction. Features of left-ventricular diastolic dysfunction, LVEDP of 20 mmHg. Diagnostic RX Recommendation: medical therapy and/or counseling LV EDP: 22 mmHg Ventriculography Ejection Fraction: 60.0 % Left Ventriculography Findings: * LV gram was performed in the WINN view. The LV cavity appears to be normal size. LV ejection fraction was around 60%. No filling defects are noted. No severe mitral valve prolapse or mitral regurgitation. Pressures Phase:Rest AO : 102 / 71 ( 85 ) @ 7:19:00 AM 85 / 62 ( 73 ) @ 7:22:00 AM 118 / 92 ( 106 ) @ 7:28:00 AM 126 / 83 ( 102 ) @ 7:35:00 AM 126 / 83 ( 103 ) @ 7:35:00 AM 203 / 110 ( 123 ) @ 7:38:00 AM LV : 131 / 0 / 22 @ 7:34:00 AM 127 / 4 / 25 @ 7:35:00 AM 130 / 5 / 25 @ 7:35:00 AM Valves Phase:DefaultPhase AV : 6.0 @ 6:49:34 AM 6.0 @ 6:49:34 AM AV Mean Gradient: 10.0 @ 6:49:34 AM Clinical Evaluation EBL: 5mL-10mL Procedural Details Procedure Consent Obtained. Pre-Procedure Time Out. Identified patient by full name and date of as verbalized by the patient/guarantor. Does the consent match the physician's order: Yes. Accurate & Complete Informed Consent: Yes. Inpatient/Outpatient History & Physical on Chart: Yes. If H&P is completed, is and addenduem needed: No; If yes, is the addendum complete: N/A. Visualize and Verify Site with Patient/Guarantor: N/A. Relevant Radiology Images available: Yes. Pre-op teaching completed and patient verbalized understanding. The risks, benefits, and alternatives of sedation and/or procedure were discussed by physician. The patient agrees to continue. Procedure started. [facility] Clinical Fraility Score: 3: Managing Well. [place] [employer] Indications: Other. Chest Pain Symptom Assessment: Atypical Angina. Correct patient, site and procedure confirmed by cath team. Current diagnosis: Chest Pain. PERRLA. Strong, equal hand perioperative manager bilaterally. Lungs clear x 5 lobes. IV Site on Arrival: 18 gauge in the left anticubital. IV Fluids: 0.9% NaCl at KVO. 0 mL infused prior to field laborer. Oxygen started at 2liters/min via nasal canula. right groin was prepped with chloroprep then draped in the usual sterile fashion. right radial was prepped with chloroprep then draped in the usual sterile fashion. Physician notified. Baseline sample Acquired. HR: 0 BPM. Current Diagnosis : Chest Pain. Physician arrived. Glucose checked. Results: 223. Physician scrubbed in. Immediate Pre-Procedure Time Out. Correct Patient: Yes; Correct Procedure: Yes; Correct Site: Yes; Correct Patient Position: Yes; Correct Supplies: Yes; Dried Flammable Prep: Yes; Blood Products Available: N/A;. Lidocaine 1% infiltrated to the right radial. Arterial access obtained. A 5 eritrean Hay catheter in over wire. Multiple views taken of left coronary artery. Catheter redirected to the RCA. Catheter removed over the exchange wire. A 5 eritrean JR4 catheter in over wire. Multiple views taken of right coronary artery. Catheter removed over the exchange wire. A 5 eritrean Angled Pig catheter in over wire. EDP Sample taken: LV 131/-1,22; HR: 70 BPM; SpO2: 91%. LV gram performed in WINN @ 10 mL/second for a total of 30 mL. EDP Sample taken: LV 127/4,25; HR: 75 BPM; SpO2: 91%. Pullback taken: LV 130/5,25; AO 126/83(102); Mean: 10mmHg, Peak to Peak: 6mmHg, SEP: 16sec/min; HR: 72 BPM; SpO2: 91%. Physician review of cine films. Catheter removed over the exchange wire. Vital chart was stopped. Physician scrubbed out. A TR Band was successful obtaining hemostatsis at the Right Radial artery insertion site. Post Procedure: Pulses reassessed and unchanged. PERRLA. Strong, equal hand perioperative manager bilaterally. No VTE prophylaxis required. Medication's Wasted: Nitro = 49.6 mg. Medication's Wasted: Lidocaine 1% = 14 mL. Medication's Wasted: Heparin = 1000 units. Medication's Wasted: Other = Fentanyl 25mcg Versed 1 mg. Total IV fluids: 38 mL. Complications: None. Estimated blood loss: 5mL-10mL. Responsiveness - Normal response to verbal stimuli; alert and oriented, PERRLA. Airway - Unaffected, no intervention required; spontaneous ventilation. Circulation: W/N/L, pulses unchanged. Nausea/Vomiting: No. Procedure completed. Patient transferred by wheelchair to CPRU. Access Site Site: Right Radial artery Sheath Size: 6 Fr Hemostasis Method: TR Band Hemostasis Success: Successful Procedure Medications Start: 6:08 AM Stop: 6:08 AM Medication: Versed Amount: 1 mg Route: I.V. Start: 6:08 AM Stop: 6:08 AM Medication: Fentanyl Amount: 25 mcg Route: I.V. Start: 6:13 AM Stop: 6:13 AM Medication: Versed Amount: 1 mg Route: I.V. Start: 6:16 AM Stop: 6:16 AM Medication: Nitrogylcerin Amount: 200 mcg Route: I.A. Start: 6:16 AM Stop: 6:16 AM Medication: Verapamil Amount: 5 mg Route: I.A. Start: 6:18 AM Stop: 6:18 AM Medication: Heparin Amount: 5000 units Route: I.V. Start: 6:21 AM Stop: 6:21 AM Medication: Fentanyl Amount: 25 mcg Route: I.V. Start: 6:27 AM Stop: 6:27 AM Medication: Versed Amount: 1 mg Route: I.V. Start: 6:31 AM Stop: 6:31 AM Medication: Nitrogylcerin Amount: 200 mcg Route: I.A. Start: 6:31 AM Stop: 6:31 AM Medication: Fentanyl Amount: 25 mcg Route: I.V. Start: 6:36 AM Stop: 6:36 AM Medication: Zofran (ondansetron) Amount: 4 mg Route: I.V. I, the attending physician, have reviewed and verified all procedure medications. Yes, all medications given per verbal order History/Risk Factors Hypertension: No Dyslipidemia: Yes Peripheral Arterial Disease (PAD): No Myocardial Infarction (DE): No Obesity: Yes Renal Disease: No Tobacco Use: Current/Recent(w/in 1 year) Prior Interventions PCI: No CABG: No Valve Surgery: No Report Signatures Finalized by Dr Maurisio Andrade MD [facility] on 09/26/2023 09:16 AM
[2023-09-26] MEDS: citalopram 20 mg Tablet PO ×2 (05:15→08:48)
[2023-09-26 05:34] LABS: Basophils % 0.5 %; Eosinophils # 0.3 10^3/uL (0.0-0.8); Eosinophils % 2.9 %; Hematocrit 45.1 % (36-47); Lymphocytes # 2.9 10^3/uL (0.8-4.8); Mean Corpuscular HGB Conc 33.3 g/dL (30-55); Mean Corpuscular Hemoglobin 29.2 pg (27-33); Mean Corpuscular Volume 87.9 fl (85-98); Mean Platelet Volume 12.3 fL (7.4-10.4); Monocytes # 0.5 10^3/uL (0.2-0.9); Monocytes % 5.6 %; Neutrophils # 5.01 10^3/uL (1.8-7.7); Neutrophils % 57.7 %; Nucleated Red Blood Cells % 0 %; Platelet Count 193 10^3/cmm (157-399); Red Blood Count 5.13 10^6/uL (3.85-5.65); Red Cell Distribution Width 12.1 % (12.1-15.1); White Blood Count 8.69 10^3/uL (3.29-11.43)
[2023-09-26 05:52] LABS: Blood Urea Nitrogen 9 mg/dL (6-20); Calcium 9.1 mg/dL (8.5-10.5); Carbon Dioxide 25 mmol/L (22-29); Chloride 100 mmol/L (98-107); Creatinine Clr Calc Pharmacy 176.4092; Glucose 198 mg/dL (65-115); Magnesium 1.6 mg/dL (1.7-2.3); Osmolality Calculated 284 mOsm/kg (285-295); Phosphorus 4.6 mg/dL (2.5-4.5); Sodium 135 mmol/L (136-145)
[2023-09-26 06:06] LABS: Glucose Point of Care 223 mg/dL (70-110)
--- NOTE | 2023-09-26 06:07 | W.PM.OPSUD ---
Surgery/Procedure H&P Update DATE OF PROCEDURE: September 26, 2023 DATE H&P PERFORMED: 09/25/23 H&P UPDATE INFORMATION: I have reviewed H&P completed within last 30 days, I have examined patient prior to procedure and No changes to prior documentation PREOP DIAGNOSIS: ASHD PRIMARY INDICATION FOR PROCEDURE: achest pain/ abnormal stress test/ multiple risk factors PLANNED PROCEDURE: Operation Date: 09/26/23 06:00 Proposed Procedures p Cardiac Catheterization with angio and poss PCI(Not Applicable) - Maurisio Andrade MD PATIENT REASSESSED PRIOR TO SEDATION, WITH NO CHANGE NOTED: Yes PHYSICAL EXAM: alert, oriented x 3, clear to auscultation bilaterally and regular rate & rhythm AIRWAY EVAL/ANESTHESIA PLAN: normal airway, see other exam findings, ASA III, Monitored Anesthesia, Local Anesthesia, Risks, benefits & alternatives of sedation and/or procedure discussed and Patient agrees to continue as planned
[2023-09-26 07:52] LABS: Glucose Point of Care 206 mg/dL (70-110)
[2023-09-26] MEDS: insulin lispro 100 unit/1 mL SUBCUT ×2 (08:46→12:25)
[2023-09-26] MEDS: TRAMadol 50 mg Tablet PO (08:46)
[2023-09-26] MEDS: nicotine 21 mg Patch 1 PATCH TRANSDERMA (08:47)
[2023-09-26] MEDS: gabapentin 300 mg Capsule PO ×2 (08:47→12:25)
[2023-09-26] MEDS: pantoprazole DR 40 mg Tablet PO (08:48)
[2023-09-26] MEDS: carvedilol 3.125 mg Tablet PO (08:48)
--- NOTE | 2023-09-26 10:07 | PC.NURSE ---
received from cardiac mill laborer via w/c at 0725.report recieved.pt is alert and awake.denies pain at present.sr on monitor.right wrist with tr band on and inflated.right hand is warm to touch and with brisk capillary refill.palpable radial pulse noted distal to tr band.no hematoma noted.pt instructed in activity restrictions s/p radial artery procedure..and instructed to notify staff for any bleeding,pain,numbness...or for any concerns at all.pt verb understanding of instructions
[2023-09-26 12:05] LABS: Glucose Point of Care 199 mg/dL (70-110)
--- NOTE | 2023-09-26 13:45 | PM.PN ---
Subjective Subjective: Patient underwent left heart catheterization with left and right coronary angiogram and LV angiogram today She was found to have mild diffuse coronary artery disease. LVEDP was found to be elevated suggesting left-ventricular diastolic dysfunction Medications: Medication Review Details: Current Medications Acetaminophen (Acetaminophen 325 Mg Tablet) 650 mg PO Q6H PRN PRN Reason: MILD PAIN Last Admin: 09/24/23 08:43 Dose: 650 mg Al Hydrox/Mg Hydrox/Simethicone (Bfyp-Wby-Qelkigkox-Vandana 30 Ml Udc) 30 ml PO Q15M PRN PRN Reason: INDIGESTION Alprazolam (Alprazolam 0.5 Mg Tablet) 0.25 mg PO BID PRN PRN Reason: ANXIETY Amlodipine Besylate (Amlodipine 5 Mg Tablet) 5 mg PO DAILY [facility] Last Admin: 09/26/23 08:50 Dose: Not Given Atorvastatin Calcium (Atorvastatin 40 Mg Tablet) 40 mg PO BEDTIME [facility] Last Admin: 09/25/23 20:02 Dose: 40 mg Atropine Sulfate (Atropine 1 Mg/Ml Sdv 1 Ml) 0.5 mg IVP PRN PRN PRN Reason: Symptomatic bradycardia Carvedilol (Carvedilol 3.125 Mg Tablet) 3.125 mg PO BID [facility] Last Admin: 09/26/23 08:48 Dose: 3.125 mg Citalopram Hydrobromide (Citalopram 20 Mg Tablet) 20 mg PO DAILY [facility] Last Admin: 09/26/23 08:48 Dose: 20 mg Citalopram Hydrobromide (Citalopram 20 Mg Tablet) 20 mg PO QAM [facility] Last Admin: 09/26/23 05:15 Dose: 20 mg Enoxaparin Sodium (Enoxaparin 40 Mg/0.4 Ml Syringe) 40 mg SUBCUT Q24H [facility] Last Admin: 09/25/23 22:22 Dose: 40 mg Fentanyl (Fentanyl 50 Mcg/Ml Inj 2ml) 50 mcg IVP PRN PRN PRN Reason: Prior to sheath removal Gabapentin (Gabapentin 300 Mg Capsule) 600 mg PO BEDTIME [facility] Last Admin: 09/25/23 20:02 Dose: 600 mg Gabapentin (Gabapentin 300 Mg Capsule) 300 mg PO 0900,1200 [facility] Last Admin: 09/26/23 12:25 Dose: 300 mg Dextrose (D5w) 500 mls @ 0 mls/hr IV ONCE PRN; Protocol PRN Reason: Adult Acute Hypoglycemia Prot Dextrose (D10w) 125 mls @ 750 mls/hr IV PRN PRN; Protocol PRN Reason: Adult Acute Hypoglycemia Nursing Protocol Dextrose (D10w) 250 mls @ 1,000 mls/hr IV PRN PRN; Protocol PRN Reason: Adult Acute Hypoglycemia Nursing Protocol Sodium Chloride (Sodium Chloride 0.9%) 1,000 mls @ 50 mls/hr IV .Q20H ONE Stop: 09/26/23 15:13 Last Admin: 09/25/23 20:01 Dose: 50 mls/hr Insulin Glargine (Insulin Glargine 100 Units/1 Ml) 10 unit SUBCUT BEDTIME TOD Last Admin: 09/25/23 20:03 Dose: 10 unit Insulin Human Lispro (Insulin Lispro 100 Unit/1 Ml) 0 unit SUBCUT TIDWM TOD; Protocol Last Admin: 09/26/23 12:25 Dose: 6 unit Magnesium Hydroxide (Magnesium Hydroxide 30 Ml Udc) 30 ml PO DAILY PRN PRN Reason: CONSTIPATION Nicotine (Nicotine 21 Mg Patch) 1 patch TRANSDERMA DAILY [facility] Last Admin: 09/26/23 08:47 Dose: 1 patch Nitroglycerin (Nitroglycerin 0.4 Mg Sublingual Tablet) 0.4 mg SUBLINGUAL Q5M PRN PRN Reason: CHEST PAIN Non-Formulary Medication (Cariprazine [Vraylar]) 3 mg PO BEDTIME TOD Ondansetron HCl (Ondansetron 2 Mg/Ml Sdv 2 Ml) 4 mg IVP Q8H PRN PRN Reason: vomiting, or N/V if npo Ondansetron HCl (Ondansetron 2 Mg/Ml Sdv 2 Ml) 4 mg IVP Q2M PRN PRN Reason: NAUSEA Pantoprazole Sodium (Pantoprazole Dr 40 Mg Tablet) 40 mg PO DAILY [facility] Last Admin: 09/26/23 08:48 Dose: 40 mg Prazosin HCl (Prazosin 1 Mg Capsule) 4 mg PO BEDTIME TOD Last Admin: 09/25/23 20:02 Dose: 4 mg Temazepam (Temazepam 15 Mg Capsule) 15 mg PO BEDTIME PRN PRN Reason: INSOMNIA Tizanidine HCl (Tizanidine 4 Mg Tablet) 4 mg PO TID PRN PRN Reason: Muscle Spasm Last Admin: 09/24/23 18:03 Dose: 4 mg Tramadol HCl (Tramadol 50 Mg Tablet) 50 mg PO TID PRN PRN Reason: MODERATE PAIN Last Admin: 09/26/23 08:46 Dose: 50 mg Vitals/I&O/Wt Last Vital Signs Temp 97.6 F 09/26/23 04:56 Pulse 58 L 09/26/23 07:15 Resp 15 09/26/23 07:15 BP 113/78 09/26/23 07:15 Pulse Ox 92 09/26/23 07:15 O2 Del Method Nasal Cannula 09/26/23 07:15 O2 Flow Rate 2 09/26/23 07:15 FiO2 21 09/26/23 04:00 09/25/23 09/26/23 09/26/23 22:59 06:59 14:59 Intake Total 480 / 960 240 / 240 Balance 480 / 960 240 / 240 Weight last 48 hrs Weight 248 lb 1 oz Weight 247 lb 7 oz Physical Exam Narrative: GENERAL: The patient is alert and oriented times three. Not in any acute distress. HEENT: No significant pallor, icterus or lymphadenopathy.Oral cavity: There are no mucous membrane lesions. NECK: Trachea appears to be central. No masses noted. No JVD or thyromegaly appreciated. RESPIRATORY: Chest is symmetrical. No intercostals muscle retraction or any accessory muscle activation. There is no chest wall tenderness. Breath sounds are heard bilaterally. No rales or rhonchi heard. No evidence of any consolidation. BREASTS: Deferred. HEART: The heart sounds are normal. No S3 or S4. No significant murmurs. No pericardial rub ABDOMEN: No vessel pulsations or distention. No tenderness. No organomegaly appreciated. Bowel sounds are normally heard. : Deferred. RECTAL: Deferred. LYMPHATIC: No lymphadenopathy noted in the neck. EXTREMITIES: No edema or cyanosis. No clubbing. MUSCULOSKELETAL: No acute joint deformities or swelling SKIN: There are no significant rashes or ecchymosis NEUROPSYCHIATRIC: The patient is alert and oriented x3. Appears to be in a good mood. No tremors or rigidity noted. Data 09/26/23 05:24 09/26/23 05:24 Other Labs: Laboratory Last Values WBC 8.69 10^3/uL (3.29-11.43) 04/10/24 05:24 RBC 5.13 10^6/uL (3.85-5.65) 09/26/23 05:24 Hgb 15.00 g/dL (11.27-16.99) 09/26/23 05:24 Hct 45.1 % (36-47) 09/26/23 05:24 MCV 87.9 fl (85-98) 09/26/23 05:24 MCH 29.2 pg (27-33) 09/26/23 05:24 MCHC 33.3 g/dL (30-55) 09/26/23 05:24 RDW 12.1 % (12.1-15.1) 09/26/23 05:24 Plt Count 193 10^3/cmm (157-399) 09/26/23 05:24 MPV 12.3 fL (7.4-10.4) H 09/26/23 05:24 Neut % (Auto) 57.7 % 09/26/23 05:24 Lymph % (Auto) 33.0 % 09/26/23 05:24 Cherry % (Auto) 5.6 % 09/26/23 05:24 Eos % (Auto) 2.9 % 09/26/23 05:24 Baso % (Auto) 0.5 % 09/26/23 05:24 Neut # (Auto) 5.01 10^3/uL (1.8-7.7) 09/26/23 05:24 Lymph # (Auto) 2.9 10^3/uL (0.8-4.8) 09/26/23 05:24 Cherry # (Auto) 0.5 10^3/uL (0.2-0.9) 09/26/23 05:24 Eos # (Auto) 0.3 10^3/uL (0.0-0.8) 09/26/23 05:24 Baso # (Auto) 0.0 10^3/uL (0.0-0.1) 09/26/23 05:24 Nucleated RBC % (auto) 0 % 09/26/23 05:24 Nucleated RBCs # 0.0 /100WBC 09/26/23 05:24 PT 12.30 SECONDS (12.1-14.9) 09/23/23 17:48 INR 0.89 (0.8-1.2) 09/23/23 17:48 Sodium 135 mmol/L (136-145) L 09/26/23 05:24 Potassium 4.0 mmol/L (3.5-5.1) 09/26/23 05:24 Chloride 100 mmol/L (98-107) 09/26/23 05:24 Carbon Dioxide 25 mmol/L (22-29) 09/26/23 05:24 Anion Gap 14.0 (5-19) 09/26/23 05:24 BUN 9 mg/dL (6-20) 09/26/23 05:24 Creatinine 0.5 mg/dL (0.5-0.9) 09/26/23 05:24 GFR Calculation 134.0 mL/min (90-130) H 09/26/23 05:24 Glucose 198 mg/dL (65-115) H 09/26/23 05:24 POC Glucose 199 mg/dL (70-110) H 09/26/23 12:02 Estimat Average Glucose 266 09/23/23 17:48 Hemoglobin A1c 10.9 % (4.0-6.0) H 09/23/23 17:48 Calculated Osmolality 284 mOsm/kg (285-295) L 09/26/23 05:24 Calcium 9.1 mg/dL (8.5-10.5) 09/26/23 05:24 Phosphorus 4.6 mg/dL (2.5-4.5) H 09/26/23 05:24 Magnesium 1.6 mg/dL (1.7-2.3) L 09/26/23 05:24 Total Bilirubin 0.4 mg/dL (0.15-1.2) 09/25/23 04:42 AST 26 U/L (0-32) 09/25/23 04:42 ALT 23 U/L (0-33) 09/25/23 04:42 Alkaline Phosphatase 97 U/L (35-105) 09/25/23 04:42 Troponin T Baseline 18 ng/L (0-10) H 09/23/23 17:48 Troponin T 120 Minute 6.00 ng/L (0-10) 09/23/23 20:00 Delta Troponin T -12.00 ABS# (0-10) L 09/23/23 20:00 Troponin T Hi Sens 6Hr 6.00 ng/L (0-10) 09/23/23 23:44 Troponin T Hi Sens 6Hr Delta -12.00 ng/L (0-12) L 09/23/23 23:44 NT-Pro-B Natriuret Pep 61 pg/mL (0-125) 09/23/23 17:48 Total Protein 6.2 g/dL (6.6-8.7) L 09/25/23 04:42 Albumin 3.5 g/dL (3.5-5.2) 09/25/23 04:42 Globulin 2.7 g/dL (1.3-4.6) 09/25/23 04:42 Triglycerides 421 mg/dL (0-150) H 09/23/23 Unknown Cholesterol 197 mg/dL (0-200) 09/23/23 Unknown LDL Cholesterol Direct 102 mg/dL (0-100) H 09/23/23 Unknown LDL Cholesterol, Calc Not Reportable 09/23/23 Unknown HDL Cholesterol 32 mg/dL (60-100) L 09/23/23 Unknown LDL/HDL Ratio Not Reportable 09/23/23 Unknown Cholesterol/HDL Ratio 6.16 mg/dL (0.0-4.40) H 09/23/23 Unknown Lipase 29 U/L (13-60) 09/23/23 17:48 TSH 1.84 uIU/mL (0.27-4.20) 09/23/23 Unknown A&P Assessment and plan (1) Chest pain: Possible microvascular disease/LV diastolic dysfunction Patient be started on isosorbide mononitrate 30 mg p.o. daily Qualifiers: Chest pain type: unspecified Qualified Code(s): R07.9 - Chest pain, unspecified (2) Morbid obesity: Patient is trying to lose weight. She already lost around 50 pounds within the last 1 year. (3) Uncontrolled diabetes mellitus: Her blood sugar seems to be getting under control. She seems to have type II on diabetes. Qualifiers: Diabetes mellitus type: type 2 Glycemic state: with hyperglycemia Qualified Code(s): E11.65 - Type 2 diabetes mellitus with hyperglycemia (4) Dyslipidemia: May continue on the current medications. (5) Nicotine dependence, cigarettes, uncomplicated: Strongly advised to quit smoking. (6) HOMER (obstructive sleep apnea): Patient is on CPAP. (7) Benign hypertension: The blood pressure seems to be getting under control. Need to optimize the antihypertensive medications. Plan Isosorbide mononitrate 30 mg p.o. daily. Other medications may be continued. Appointment the [facility] in a week to be seen by the nurse practitioner Appoint with me in the office in 2 months Attestations Medical Necessity Statement*: Disposition as per the primary Coding Level of Care Code Acute Code for g Fwd Diagnoses Chest pain R07.9 Chest pain type: unspecified Morbid obesity E66.01 Uncontrolled type 2 diabetes mellitus with hyperglycemia E11.65 Diabetes mellitus type: type 2 Glycemic state: with hyperglycemia Dyslipidemia E78.5 Nicotine dependence, cigarettes, uncomplicated F17.210 HOMER (obstructive sleep apnea) G47.33 Benign hypertension I10
--- NOTE | 2023-09-26 14:32 | P.DS_ITS ---
Discharge Providers Date of Admission: 09/24/23 10:45 Date of Discharge: September 26, 2023 Attending Provider at Admission: Jeff Edwards MD Attending Provider at Discharge: Lin Leigh MD Primary Care Provider: Moris Null DO Diagnoses at Discharge Discharge Diagnosis (1) Chest pain: Status: Acute Qualifiers: Chest pain type: unspecified Qualified Code(s): R07.9 - Chest pain, unspecified (2) Morbid obesity: Status: Acute (3) Uncontrolled diabetes mellitus: Status: Acute Qualifiers: Diabetes mellitus type: type 2 Glycemic state: with hyperglycemia Qualified Code(s): E11.65 - Type 2 diabetes mellitus with hyperglycemia (4) Dyslipidemia: Status: Acute (5) Nicotine dependence, cigarettes, uncomplicated: Status: Acute (6) HOMER (obstructive sleep apnea): Status: Acute (7) Benign hypertension: Status: Acute Reason for Visit Reason for Visit: Chest pains Hospital Course Hospital Course Ms Julissa Avalos is a 42 old woman with past medical history of obesity, type 2 diabetes who presented for further evaluation of chest pain. She was admitted for further evaluation and management. Patient's EKG was negative for STEMI. Troponins was not elevated. She was evaluated by cardiology and underwent cardiac catheterization which showed mild diffuse CAD. No interventions were done. Patient's chest pain was thought to be possibly due to microvascular disease. She was started on Imdur. She was also started Coreg, amlodipine for her blood pressure. She will follow-up with her PCP and cardiology outpatient. Physical Exam Const: COMMON NORMALS: no acute distress, patient oriented x3 and alert HENMT: COMMON NORMALS: normocephalic, atraumatic, external ears normal, Normal external nose present, moist oral mucous membranes and oropharynx normal HEAD & SCALP: normocephalic and atraumatic NOSE: Normal external nose present EXTERNAL EAR: Yes external ears normal Eye: COMMON NORMALS: Equal, round and reactive pupils present, EOMs intact bilaterally, conjunctivae normal and no scleral icterus CONJUNCTIVA: Yes conjunctivae normal PUPIL: Yes Equal, round and reactive pupils present Neck/C-Spine: COMMON NORMALS: full ROM, no lymphadenopathy and no JVD Chest: COMMONS NORMALS: normal inspection of the chest Resp: COMMON NORMALS: normal respiratory effort and clear to auscultation bilaterally AUSCULTATION: clear to auscultation bilaterally OTHER: No wheezes or crackles Cardio: COMMON NORMALS: no JVD, regular rate, regular rhythm, S1 normal heart sound present and S2 normal heart sound present RATE: regular rate RHYTHM: regular rhythm HEART SOUNDS: S1 normal heart sound present and S2 normal heart sound present GI: COMMON NORMALS: Normal to inspection, nondistended, normoactive bowel sounds present, Soft to palpation and non-tender PALPATION: Yes Soft to palpation Extremity: COMMON NORMALS: normal to inspection and no pedal edema Neuro: COMMON NORMALS: patient oriented x3 SENSORIUM/ORIENTATION: Yes alert OTHER: No gross focal deficits Discharge Data Studies Completed and Pending Completed Studies During Hospitalization Category Date Time Status [employer] request for service Routine Exams 09/26/23 05:13 Completed Sestamibi Stress Test Request Routine Exams 09/23/23 22:36 Draft XR chest 1V portable [id number] Stat Exams 09/23/23 17:17 Completed NM bart perf SPECT r/s* [id number] Routine Nuc Med 09/24/23 08:00 Completed CV. echo complete* [id number] Routine Ultrasound 09/24/23 10:30 Completed Radiology Impressions Chest X-Ray 09/23/23 17:17 IMPRESSION: No acute cardiopulmonary disease. Laboratory Results WBC 8.69 10^3/uL (3.29-11.43) 09/26/23 05:24 RBC 5.13 10^6/uL (3.85-5.65) 09/26/23 05:24 Hgb 15.00 g/dL (11.27-16.99) 09/26/23 05:24 Hct 45.1 % (36-47) 09/26/23 05:24 MCV 87.9 fl (85-98) 09/26/23 05:24 MCH 29.2 pg (27-33) 09/26/23 05:24 MCHC 33.3 g/dL (30-55) 09/26/23 05:24 RDW 12.1 % (12.1-15.1) 09/26/23 05:24 Plt Count 193 10^3/cmm (157-399) 09/26/23 05:24 MPV 12.3 fL (7.4-10.4) H 09/26/23 05:24 Neut % (Auto) 57.7 % 09/26/23 05:24 Lymph % (Auto) 33.0 % 09/26/23 05:24 Butler % (Auto) 5.6 % 09/26/23 05:24 Eos % (Auto) 2.9 % 09/26/23 05:24 Baso % (Auto) 0.5 % 09/26/23 05:24 Neut # (Auto) 5.01 10^3/uL (1.8-7.7) 09/26/23 05:24 Lymph # (Auto) 2.9 10^3/uL (0.8-4.8) 09/26/23 05:24 Butler # (Auto) 0.5 10^3/uL (0.2-0.9) 09/26/23 05:24 Eos # (Auto) 0.3 10^3/uL (0.0-0.8) 09/26/23 05:24 Baso # (Auto) 0.0 10^3/uL (0.0-0.1) 09/26/23 05:24 Nucleated RBC % (auto) 0 % 09/26/23 05:24 Nucleated RBCs # 0.0 /100WBC 09/26/23 05:24 PT 12.30 SECONDS (12.1-14.9) 09/23/23 17:48 INR 0.89 (0.8-1.2) 09/23/23 17:48 Sodium 135 mmol/L (136-145) L 09/26/23 05:24 Potassium 4.0 mmol/L (3.5-5.1) 09/26/23 05:24 Chloride 100 mmol/L (98-107) 09/26/23 05:24 Carbon Dioxide 25 mmol/L (22-29) 09/26/23 05:24 Anion Gap 14.0 (5-19) 09/26/23 05:24 BUN 9 mg/dL (6-20) 09/26/23 05:24 Creatinine 0.5 mg/dL (0.5-0.9) 09/26/23 05:24 GFR Calculation 134.0 mL/min (90-130) H 09/26/23 05:24 Glucose 198 mg/dL (65-115) H 09/26/23 05:24 POC Glucose 199 mg/dL (70-110) H 09/26/23 12:02 Estimat Average Glucose 266 09/23/23 17:48 Hemoglobin A1c 10.9 % (4.0-6.0) H 09/23/23 17:48 Calculated Osmolality 284 mOsm/kg (285-295) L 09/26/23 05:24 Calcium 9.1 mg/dL (8.5-10.5) 09/26/23 05:24 Phosphorus 4.6 mg/dL (2.5-4.5) H 09/26/23 05:24 Magnesium 1.6 mg/dL (1.7-2.3) L 09/26/23 05:24 Total Bilirubin 0.4 mg/dL (0.15-1.2) 09/25/23 04:42 AST 26 U/L (0-32) 09/25/23 04:42 ALT 23 U/L (0-33) 09/25/23 04:42 Alkaline Phosphatase 97 U/L (35-105) 09/25/23 04:42 Troponin T Baseline 18 ng/L (0-10) H 09/23/23 17:48 Troponin T 120 Minute 6.00 ng/L (0-10) 09/23/23 20:00 Delta Troponin T -12.00 ABS# (0-10) L 09/23/23 20:00 Troponin T Hi Sens 6Hr 6.00 ng/L (0-10) 09/23/23 23:44 Troponin T Hi Sens 6Hr Delta -12.00 ng/L (0-12) L 09/23/23 23:44 NT-Pro-B Natriuret Pep 61 pg/mL (0-125) 09/23/23 17:48 Total Protein 6.2 g/dL (6.6-8.7) L 09/25/23 04:42 Albumin 3.5 g/dL (3.5-5.2) 09/25/23 04:42 Globulin 2.7 g/dL (1.3-4.6) 09/25/23 04:42 Triglycerides 421 mg/dL (0-150) H 09/23/23 Unknown Cholesterol 197 mg/dL (0-200) 09/23/23 Unknown LDL Cholesterol Direct 102 mg/dL (0-100) H 09/23/23 Unknown LDL Cholesterol, Calc Not Reportable 09/23/23 Unknown HDL Cholesterol 32 mg/dL (60-100) L 09/23/23 Unknown LDL/HDL Ratio Not Reportable 09/23/23 Unknown Cholesterol/HDL Ratio 6.16 mg/dL (0.0-4.40) H 09/23/23 Unknown Lipase 29 U/L (13-60) 09/23/23 17:48 TSH 1.84 uIU/mL (0.27-4.20) 09/23/23 Unknown Vitals Last Vital Signs Temp 97.6 F 09/26/23 04:56 Pulse 58 L 09/26/23 07:15 Resp 15 09/26/23 07:15 BP 113/78 09/26/23 07:15 Pulse Ox 92 09/26/23 07:15 O2 Del Method Nasal Cannula 09/26/23 07:15 O2 Flow Rate 2 09/26/23 07:15 FiO2 21 09/26/23 04:00 Discharge Plan Discharge Patient Disposition: Home Condition: Stable Prescriptions: New atorvastatin 40 mg Tablet 40 mg PO BEDTIME 30 Days Qty: 30 0RF isosorbide mononitrate 30 mg Tablet Extended Release 24 Hr 30 mg PO DAILY 30 Days Qty: 30 0RF carvedilol 3.125 mg Tablet 3.125 mg PO BID 30 Days Qty: 60 0RF amlodipine 5 mg Tablet 5 mg PO DAILY 30 Days Qty: 30 0RF Continued (DME) diabetic supplies, miscellan. Misc See Rx Instructions .ROUTE .MEDSUPPLY Qty: 1 3RF Rx Instructions: Diabetic shoes with 3 pair of inserts gabapentin 300 mg capsule See Rx Instructions .ROUTE .COMPLEX Qty: 120 5RF Dose Instruction: TAKE 1 CAPSULE BY MOUTH THREE TIMES DAILY AT 9 AM, NOON, AND 8 PM Rx Instructions: Take 1 capsule (300mg) by mouth at 9am and 12pm and two capsules (600mg) at bedtime. (DME) glucometer and strips 100 See Rx Instructions .Route .MEDSUPPLY Qty: 1 11RF Rx Instructions: check her glucose 3 times a day and adjust sliding scale insulin omeprazole 40 mg capsule,delayed release(DR/EC) 40 mg PO DAILY Qty: 90 2RF tramadol 50 mg tablet 50 mg PO TID PRN (Reason: pain) Qty: 90 5RF Hold Instructions: Resume on 03/06/23. cetirizine 10 mg tablet 10 mg PO DAILY@0900 PRN (Reason: Allergic Symptoms) Qty: 30 2RF (DME) Blood Glucose Test Strip See Rx Instructions .MEDSUPPLY Qty: 200 12RF Rx Instructions: Use as directed with glucometer to check blood sugar (DME) Monoject Safety Syringes 6 mL syringe See Rx Instructions .Route Qty: 300 0RF Rx Instructions: Use once a day to inject Lantus. (DME) pen needle, diabetic [Comfort EZ Pen [place]] 32 gauge x 5/32 needle See Rx Instructions .Route Qty: 100 2RF Rx Instructions: Use 3 times a day to inject Novolog tizanidine 4 mg tablet 4 mg PO TID PRN (Reason: Muscle Spasm) citalopram 20 mg tablet 20 mg PO QAM prazosin 2 mg capsule 4 mg PO BEDTIME Novolog FlexPen U-100 Insulin 100 unit/mL (3 mL) insulin pen See Rx Instructions .ROUTE .COMPLEX Rx Instructions: sliding sclae tid eszopiclone 3 mg tablet 3 mg PO BEDTIME Vraylar 3 mg capsule 3 mg PO BEDTIME insulin glargine [Lantus U-100 Insulin] 100 unit/mL solution 35 unit SUBCUT BEDTIME ondansetron 4 mg tablet,disintegrating 4 mg PO Q8H PRN (Reason: nausea and vomiting) Qty: 20 0RF metoclopramide HCl [Reglan] 10 mg tablet 10 mg PO Q6H PRN (Reason: nausea and vomiting) Qty: 20 0RF Discharge Orders: Discharge Order (Routine); Ordered 09/26/23 Ordered By: Lin Leigh Referrals: Moris Null DO [Primary Care Provider] - 10/04/23 10:45 am () Verito Luo FNP [Nurse Practitioner] - 10/09/23 1:30 pm Discharge Diet: Usual diet Discharge Activity: Increase activity as tolerated Patient Instructions: Amlodipine (By mouth), Isosorbide Mononitrate (By mouth) (Imdur, Imdur ER, Ismo), Atorvastatin (By mouth), Carvedilol (By mouth) (Coreg, Coreg CR, Hypertenevide-12.5), Heart Catheterization (DC), Chest Pain Stoplight, Opioid Safety, Post Angiogram Home Care Instructions Discharge Attestations Time Spent in Discharge Care*: less than 30 min Quality Metrics Clinical Quality Measures [ No reported AMI, CVA or VTE this stay] Coding Level of Care Code Acute Code for Chg Fwd Diagnoses Chest pain R07.9 Chest pain type: unspecified Morbid obesity E66.01 Uncontrolled type 2 diabetes mellitus with hyperglycemia E11.65 Diabetes mellitus type: type 2 Glycemic state: with hyperglycemia Dyslipidemia E78.5 Nicotine dependence, cigarettes, uncomplicated F17.210 HOMER (obstructive sleep apnea) G47.33 Benign hypertension I10
--- NOTE | 2023-09-26 15:33 | PC.NURSE ---
tr band slowly deflated and eventually removed at 1300.site w/o hematoma.right hand remained warm and with brisk capillary refill.palpable radial pulse noted.site dressed with bandaid.pt instructed in activity restrictions s/p tr band removal.instructed to notify staff for any bleeding,pain,numbness,or for any concerns at all.pt verb understanding of instructions
--- NOTE | 2023-09-26 15:36 | PC.NURSE ---
discharge instructions given and explained.pt verb understanding.discharged via w/c to exit at this time.sister to drive pt home.
== END 2023-09-26 15:36 | disposition home or self-care (01) | DRG 287 ==
LOC: ER 17:18 → MEDSURG 21:32 → CSU 09-26 07:26
PROVIDERS: Emergency Medicine; Family Medicine; Internal Medicine Cardiovascular Disease; Admitting Provider Family Medicine; Emergency Provider Internal Medicine; PCP Family Medicine; Visit Provider Student in an Organized Health Care Education/Training Program
PROC: 4A023N7 Measurement of Cardiac Sampling and Pressure, Left Heart, Percutaneous Approach (ICD-10-PCS; principal; 2023-09-26 06:00)
DX: I20.81 Angina pectoris with coronary microvascular dysfunction (principal); Z68.41 Body mass index [BMI] 40.0-44.9, adult; E66.01 Morbid (severe) obesity due to excess calories; E11.65 Type 2 diabetes mellitus with hyperglycemia; G47.33 Obstructive sleep apnea (adult) (pediatric); E78.5 Hyperlipidemia, unspecified; F17.210 Nicotine dependence, cigarettes, uncomplicated; I10 Essential (primary) hypertension; Z79.4 Long term (current) use of insulin; F41.9 Anxiety disorder, unspecified; Z63.4 Disappearance and death of family member; F32.9 Major depressive disorder, single episode, unspecified
CPT/HCPCS: 12345; 36415; 36416; 71045; 78452; 80048; 80053; 80061; 82962; 83036; 83690; 83721; 83735; 83880; 84100; 84443; 84484; 85025; 85610; 93005; 93017; 93306; 93458; 94660; 94664; 96365; 96372; 96374; 96375; 99152; 99153; 99285; A9500; C1769; C1887; C1894; G0378; J1644; J1650; J1815; J2250; J2405; J2785; J3010; J3490; J7030; Q0163; Q9967

== ENCOUNTER → 2023-10-09 14:10 | Outpatient (BNVA) | payer SELFPAY ==
[2023-09-26 14:30] VITALS: BP 113/78; BMI 42.6
== END ==
PROVIDERS: PCP Family Medicine; Visit Provider Nurse Practitioner Family
DX: I25.10 Atherosclerotic heart disease of native coronary artery without angina pectoris (principal)
CPT/HCPCS: 36415; 80048

== ENCOUNTER 2023-10-28 16:58 | Emergency (ER) | payer MEDICAID, SELFPAY ==
[2023-09-26 14:30] VITALS: BP 113/78; BMI 42.6
[2023-10-28 17:01] VITALS: BP 134/86; PULSE 85; RESP 18; TEMP 36.6; O2SAT 95; BMI 41.3
--- NOTE | 2023-10-28 17:08 | W.ED.ABDPA2 ---
HPI - Abdominal Pain General: Chief Complaint: Abdominal Pain Stated Complaint: N/V, blood in vomit Time Seen by Provider: 10/28/23 17:02 Source: patient Mode of arrival: ambulatory Limitations: no limitations History of Present Illness: 42-year-old female states over the last 4 days she has been having vomiting along with diarrhea she states she has had some slight abdominal cramping and a small amount of blood in her vomitus. States she has had multiple episodes of vomiting. She states she has been around multiple sick contacts a person in room states she just gotten over the same type of symptoms. She denies any severe pain denies any fevers. Associated Symptoms: Reports diarrhea, nausea and vomiting; Denies chills, dysuria and fever(s) Review of Systems Const: Denies: fever(s), chills, body aches or change in appetite ENMT: Denies: throat pain or dental pain Card: Denies: chest pain Resp: Denies: dyspnea GI: Reports: abdominal pain, nausea, vomiting and diarrhea : Denies: dysuria Musc: Denies: neck pain or back pain Skin/Breast: Denies: rash Neuro: Denies: headache(s) PFSH ED PFSH: Medical History Atherosclerosis of [place] coronary artery without angina pectoris Chest pain Insomnia Uncontrolled diabetes mellitus Urolithiasis Morbid obesity Bipolar 2 disorder Post-traumatic stress disorder, chronic Nicotine dependence, cigarettes, uncomplicated Psychiatric care Urgency incontinence Major depressive disorder without psychotic features DM2 (diabetes mellitus, type 2) Dyslipidemia Low back pain with sciatica Hypothyroidism History of abdominal hernia X2 Surgical History Hx laparoscopic cholecystectomy 03/01/23 Dr. Alarcon Hx of colonoscopy 2010 History of hernia repair Hx of knee surgery right H/O: hysterectomy Hx of appendectomy Hx of laparoscopic gastric banding Family History Mother CAD (coronary artery disease) Stroke Father CAD (coronary artery disease) Other Cancer Diabetes Hypertension Social History Smoking and tobacco/nicotine status: current every day tobacco/nicotine user cigarettes Packs smoked per day: 1 Years cigarettes smoked: 28 Alcohol intake: never Substance/Drug Use: never Household members: family Housing: House Marital status: Legally Current occupational status: employed Female Reproductive History: Spontaneous abortions: No Physical Exam Const: COMMON NORMALS: no acute distress, patient oriented x3 and healthy appearing HENMT: COMMON NORMALS: normocephalic and atraumatic HEAD & SCALP: normocephalic and atraumatic Eye: COMMON NORMALS: conjunctivae normal CONJUNCTIVA: Yes conjunctivae normal Neck/C-Spine: COMMON NORMALS: full ROM and supple Chest: COMMONS NORMALS: normal inspection of the chest Resp: COMMON NORMALS: normal respiratory effort, No retractions, No use of accessory muscles and clear to auscultation bilaterally AUSCULTATION: clear to auscultation bilaterally Cardio: COMMON NORMALS: regular rate, regular rhythm and No murmurs present (Cardio) RATE: regular rate RHYTHM: regular rhythm GI: COMMON NORMALS: Normal to inspection, nondistended, normoactive bowel sounds present, Soft to palpation, non-tender and no masses PALPATION: Yes Soft to palpation Extremity: COMMON NORMALS: normal to inspection and full ROM Neuro: COMMON NORMALS: patient oriented x3, moves all extremities and no focal motor deficits Psych: COMMON NORMALS: mental status grossly normal, Normal thought process present and cooperative THOUGHT PROCESS: Normal thought process present Skin: COMMON NORMALS: no rashes or lesions noted and no wounds GENERAL SKIN EXAM: no rashes or lesions noted Course Vital Signs: Vital signs: Vital Signs Temperature 97.8 F 10/28/23 21:13 Pulse Rate 79 10/28/23 21:13 Respiratory Rate 16 10/28/23 21:13 Blood Pressure 131/85 10/28/23 21:13 Pulse Oximetry 96 10/28/23 21:13 Oxygen Delivery Me thod Room Air 10/28/23 17:01 MDM - Abdominal Pain Medical Decision Making Patient presents here with vomiting is likely gastroenteritis patient feels improved after Zofran and fluids I did talk with Dr. Rivers pending lab Medical Records I reviewed the patient's medical records. Lab Data I reviewed the patient's lab results. 10/28/23 17:23 10/28/23 17:23 Labs/Radiology: Laboratory Results WBC 6.23 10^3/uL (3.29-11.43) 10/28/23 17:23 RBC 5.35 10^6/uL (3.85-5.65) 10/28/23 17:23 Hgb 15.40 g/dL (11.27-16.99) 10/28/23 17:23 Hct 46.1 % (36-47) 10/28/23 17:23 MCV 86.2 fl (85-98) 10/28/23 17:23 MCH 28.8 pg (27-33) 10/28/23 17: MCHC 33.4 g/dL (30-55) 10/28/23 17:23 RDW 12.5 % (12.1-15.1) 10/28/23 17:23 Plt Count 191 10^3/cmm (157-399) 10/28/23 17:23 MPV 12.9 fL (7.4-10.4) H 10/28/23 17:23 Neut % (Auto) 62.3 % 10/28/23 17:23 Lymph % (Auto) 26.5 % 10/28/23 17:23 [place] % (Auto) 7.7 % 10/28/23 17:23 Eos % (Auto) 2.9 % 10/28/23 17:23 Baso % (Auto) 0.3 % 10/28/23 17:23 Neut # (Auto) 3.88 10^3/uL (1.8-7.7) 10/28/23 17:23 Lymph # (Auto) 1.7 10^3/uL (0.8-4.8) 10/28/23 17:23 [place] # (Auto) 0.5 10^3/uL (0.2-0.9) 10/28/23 17:23 Eos # (Auto) 0.2 10^3/uL (0.0-0.8) 10/28/23 17:23 Baso # (Auto) 0.0 10^3/uL (0.0-0.1) 10/28/23 17:23 Nucleated RBC % (auto) 0 % 10/28/23 17: Nucleated RBCs # 0.0 /100WBC 10/28/23 17:23 Sodium 135 mmol/L (136-145) L 10/28/23 17:23 Potassium 4.0 mmol/L (3.5-5.1) 10/28/23 17:23 Chloride 99 mmol/L (98-107) 10/28/23 17:23 Carbon Dioxide 27 mmol/L (22-29) 10/28/23 17:23 Anion Gap 13.0 (5-19) 10/28/23 17:23 BUN 10 mg/dL (6-20) 10/28/23 17:23 Creatinine 0.6 mg/dL (0.5-0.9) 10/28/23 17:23 GFR Calculation 108.6 mL/min (90-130) 10/28/23 17:23 Glucose 306 mg/dL (65-115) H 10/28/23 17:23 Calculated Osmolality 291 mOsm/kg (285-295) 10/28/23 17:23 Calcium 8.2 mg/dL (8.5-10.5) L 10/28/23 17:23 Total Bilirubin 0.3 mg/dL (0.15-1.2) 10/28/23 17:23 AST 25 U/L (0-32) 10/28/23 17:23 ALT 44 U/L (0-33) H 10/28/23 17:23 Alkaline Phosphatase 161 U/L (35-105) H 10/28/23 17:23 Total Protein 6.7 g/dL (6.6-8.7) 10/28/23 17:23 Albumin 3.7 g/dL (3.5-5.2) 10/28/23 17:23 Globulin 3.0 g/dL (1.3-4.6) 10/28/23 17:23 Lipase 18 U/L (13-60) 10/28/23 17:23 HCG, Qual Negative (Negative) 10/28/23 17:23 Urine Color Yellow (Yellow) 10/28/23 18:10 Urine Appearance Clear (CLEAR) 10/28/23 18:10 Urine pH 5 (5-7) 10/28/23 18:10 Ur Specific [place] 1.025 (1.005-1.030) 10/28/23 18:10 Urine Protein 1+ (Negative) H 10/28/23 18:10 Urine Glucose (UA) 2+ (Normal) H 10/28/23 18:10 Urine Ketones 1+ (Negative) H 10/28/23 18:10 Urine Blood Neg (Negative) 10/28/23 18:10 Urine Nitrate Positive (Negative) H 10/28/23 18:10 Urine Bilirubin 1+ (Negative) H 10/28/23 18:10 Urine Urobilinogen 1 mg/dL (Negative) H 10/28/23 18:10 Ur Leukocyte Esterase Trace (Negative) H 10/28/23 18:10 Urine RBC 0-4 /hpf (0-2) H 10/28/23 18:10 Urine WBC 5-10 /hpf (0-5) H 10/28/23 18:10 Ur Squamous Epith Cells 5-10 /hpf (0-5) H 10/28/23 18:10 Amorphous Sediment Trace /hpf 10/28/23 18:10 Urine Bacteria 2+ /hpf (NONE) H 10/28/23 18:10 Urine Mucus 2+ /hpf 10/28/23 18:10 No radiology studies performed this visit Discharge Plan Discharge Patient Disposition: Home Clinical Impression: Nausea vomiting and diarrhea Condition: Stable Prescriptions: New ondansetron 4 mg tablet,disintegrating 4 mg PO Q6H PRN (Reason: nausea and vomiting) Qty: 14 0RF No Action (DME) diabetic supplies, miscellan. Misc See Rx Instructions .ROUTE .MEDSUPPLY Qty: 1 3RF Rx Instructions: Diabetic shoes with 3 pair of inserts gabapentin 300 mg capsule See Rx Instructions .ROUTE .COMPLEX Qty: 120 5RF Dose Instruction: TAKE 1 CAPSULE BY MOUTH THREE TIMES DAILY AT 9 AM, NOON, AND 8 PM Rx Instructions: Take 1 capsule (300mg) by mouth at 9am and 12pm and two capsules (600mg) at bedtime. (DME) glucometer and strips 100 See Rx Instructions .Route .MEDSUPPLY Qty: 1 11RF Rx Instructions: check her glucose 3 times a day and adjust sliding scale insulin omeprazole 40 mg capsule,delayed release(DR/EC) 40 mg PO DAILY Qty: 90 2RF tramadol 50 mg tablet 50 mg PO TID PRN (Reason: pain) Qty: 90 5RF Hold Instructions: Resume on 03/06/23. (DME) Dexcom G7 [employer] Misc See Rx Instructions .MEDSUPPLY Qty: 1 0RF Rx Instructions: Use as directed for checking blood sugar (DME) Dexcom G7 Sensor Device See Rx Instructions .MEDSUPPLY Qty: 2 12RF Rx Instructions: Change every 10 days; Use as directed to check blood sugar nystatin 100,000 unit/gram powder 1 applic topical BID Qty: 60 2RF ondansetron 8 mg tablet,disintegrating 8 mg PO Q8H PRN (Reason: nausea and vomiting) 5 Days Qty: 15 0RF cetirizine 10 mg tablet 10 mg PO DAILY@0900 PRN (Reason: Allergic Symptoms) Qty: 30 2RF isosorbide mononitrate 30 mg tablet extended release 24 hr 30 mg PO DAILY Qty: 90 1RF (DME) Blood Glucose Test Strip See Rx Instructions .MEDSUPPLY Qty: 200 12RF Rx Instructions: Use as directed with glucometer to check blood sugar (DME) Monoject Safety Syringes 6 mL syringe See Rx Instructions .Route Qty: 300 0RF Rx Instructions: Use once a day to inject Lantus. (DME) pen needle, diabetic [Comfort EZ Pen [place]] 32 gauge x 5/32 needle See Rx Instructions .Route Qty: 100 2RF Rx Instructions: Use 3 times a day to inject Novolog tizanidine 4 mg tablet 4 mg PO TID PRN (Reason: Muscle Spasm) Qty: 60 2RF insulin glargine [Lantus U-100 Insulin] 100 unit/mL solution 40 unit SUBCUT BEDTIME Qty: 10 5RF Vraylar 3 mg capsule 3 mg PO BEDTIME Qty: 30 2RF (DME) pen needle, diabetic [TechLITE Pen Needle] 31 gauge x 5/16 needle See Rx Instructions .Route Qty: 100 2RF Rx Instructions: As directed citalopram 20 mg tablet 20 mg PO QAM prazosin 2 mg capsule 4 mg PO BEDTIME Novolog FlexPen U-100 Insulin 100 unit/mL (3 mL) insulin pen See Rx Instructions .ROUTE .COMPLEX Rx Instructions: sliding sclae tid eszopiclone 3 mg tablet 3 mg PO BEDTIME ondansetron 4 mg tablet,disintegrating 4 mg PO Q8H PRN (Reason: nausea and vomiting) Qty: 20 0RF metoclopramide HCl [Reglan] 10 mg tablet 10 mg PO Q6H PRN (Reason: nausea and vomiting) Qty: 20 0RF Discharge Orders: Discharge ED (Routine); Ordered 10/28/23 Ordered By: Jerrell Rivers Referrals: Moris Null, [Primary Care Provider] - 1-3 days Discharge Diet: Advance as tolerated Discharge Activity: Resume usual activity Patient Instructions: Acute Nausea and Vomiting (ED), Acute Diarrhea (ED) Activity Restrictions/Additional Instructions: Take your Zofran at home every 4 hours while awake for the next 24 hours whether you are nauseated or not. Follow a liquid diet for the next 24 hours. If no vomiting, you may add food back to your diet, and use Zofran as needed. Return for any problems. See your doctor this week. Stand Alone Forms: Work/School Release Coding Level of Care Code ED Bi Report Developer for Alc[employer] Biggs
[2023-10-28 17:40] LABS: Basophils % 0.3 %; Eosinophils # 0.2 10^3/uL (0.0-0.8); Eosinophils % 2.9 %; Hematocrit 46.1 % (36-47); Lymphocytes # 1.7 10^3/uL (0.8-4.8); Lymphocytes % 26.5 %; Mean Corpuscular HGB Conc 33.4 g/dL (30-55); Mean Corpuscular Hemoglobin 28.8 pg (27-33); Mean Corpuscular Volume 86.2 fl (85-98); Mean Platelet Volume 12.9 fL (7.4-10.4); Monocytes # 0.5 10^3/uL (0.2-0.9); Monocytes % 7.7 %; Neutrophils # 3.88 10^3/uL (1.8-7.7); Neutrophils % 62.3 %; Nucleated Red Blood Cells % 0 %; Platelet Count 191 10^3/cmm (157-399); Red Blood Count 5.35 10^6/uL (3.85-5.65); Red Cell Distribution Width 12.5 % (12.1-15.1); White Blood Count 6.23 10^3/uL (3.29-11.43)
[2023-10-28 17:56] LABS: HCG, Serum Qual Negative (Negative)
[2023-10-28 17:58] LABS: Alanine Aminotransferase 44 U/L (0-33); Albumin Level 3.7 g/dL (3.5-5.2); Alkaline Phosphatase 161 U/L (35-105); Aspartate Amino Transferase 25 U/L (0-32); Blood Urea Nitrogen 10 mg/dL (6-20); Calcium 8.2 mg/dL (8.5-10.5); Carbon Dioxide 27 mmol/L (22-29); Chloride 99 mmol/L (98-107); Creatinine Clr Calc Pharmacy 144.5876; Glomerular Filtration Rate 108.6 mL/min (90-130); Glucose 306 mg/dL (65-115); Lipase 18 U/L (13-60); Osmolality Calculated 291 mOsm/kg (285-295); Sodium 135 mmol/L (136-145); Total Bilirubin 0.3 mg/dL (0.15-1.2); Total Protein 6.7 g/dL (6.6-8.7)
--- NOTE | 2023-10-28 18:05 | PC.NURSE ---
meds delayed due to needing an ultrasound IV.
[2023-10-28 19:04] LABS: Add Urine Microscopic? YES; Bilirubin Urine 1+ (Negative); Blood Urine Neg (Negative); Glucose Urine UA 2+ (Normal); Ketones Urine 1+ (Negative); Leukocyte Esterase Urine Trace (Negative); Nitrate Urine Positive (Negative); Protein Urine 1+ (Negative); Specific Gravity, Urine 1.025 (1.005-1.030); Urine Appearance Clear (CLEAR); Urine Color Yellow (Yellow); Urobilinogen Urine 1 mg/dL (Negative); pH Urine 5 (5-7)
[2023-10-28 19:05] LABS: Add Urine Culture? Yes; Amorphous Sediment Urine TRACE /hpf; Bacteria Urine 2+ /hpf; Mucus Urine 2+ /hpf; RBC Urine 0-4 /hpf (0-2)
[2023-10-28] MEDS: diphenhydrAMINE 50 mg/mL SDV 1mL IM (19:21)
[2023-10-28] MEDS: metoclopramide 5 mg/mL SDV 2 mL 10 MG IM (19:21)
[2023-10-28] MEDS: ondansetron 2 mg/ML SDV 2 mL 4 MG IM (20:29)
[2023-10-28 21:13] VITALS: BP 131/85; PULSE 79; RESP 16; TEMP 36.6; O2SAT 96
== END 2023-10-28 21:13 | disposition home or self-care (01) ==
PROVIDERS: Emergency Medicine; Emergency Provider Emergency Medicine; PCP Family Medicine
DX: R11.2 Nausea with vomiting, unspecified (principal); R19.7 Diarrhea, unspecified; Z79.4 Long term (current) use of insulin; F17.210 Nicotine dependence, cigarettes, uncomplicated; I25.10 Atherosclerotic heart disease of native coronary artery without angina pectoris; E11.9 Type 2 diabetes mellitus without complications; E78.5 Hyperlipidemia, unspecified
CPT/HCPCS: 36415; 80053; 81001; 83690; 84703; 85025; 87086; 96372; 99284; J1200; J2405; J2765

== ENCOUNTER → 2023-10-30 11:21 | Outpatient (BNVA) | payer MEDICAID, SELFPAY ==
[2023-09-26 14:30] VITALS: BP 113/78; BMI 42.6
== END ==
PROVIDERS: PCP Family Medicine; Visit Provider Internal Medicine Cardiovascular Disease
DX: I25.10 Atherosclerotic heart disease of native coronary artery without angina pectoris (principal); E78.5 Hyperlipidemia, unspecified; F17.210 Nicotine dependence, cigarettes, uncomplicated; I10 Essential (primary) hypertension; E11.65 Type 2 diabetes mellitus with hyperglycemia; F31.81 Bipolar II disorder
CPT/HCPCS: 99214

== ENCOUNTER 2023-11-24 14:46 | Emergency (ER) | payer MEDICAID, SELFPAY ==
[2023-09-26 14:30] VITALS: BP 113/78; BMI 42.6
[2023-11-24 14:49] VITALS: BP 154/99; PULSE 95; RESP 18; TEMP 36.8; O2SAT 94; BMI 42.4
--- NOTE | 2023-11-24 15:00 | XRR_ITS ---
PROCEDURE INFORMATION: Exam: XR Chest Exam date and time: 11/24/2023 3:34 PM Age: 42 years old Clinical indication: Shortness of breath; Patient HX: SOB TECHNIQUE: Imaging protocol: Radiologic exam of the chest. Views: 1 view. COMPARISON: CR XR chest 1V portable [id number] 09/23/2023 5:31 PM FINDINGS: Lungs: Both lungs demonstrate diffuse interstitial coarsening which is felt to be chronic. No lung mass or infiltrate. Pleural spaces: Unremarkable. No pleural effusion. No pneumothorax. Heart/Mediastinum: Unremarkable. No cardiomegaly. Bones/joints: Unremarkable. XR/XR chest 1V portable [id number] IMPRESSION: No acute findings.
--- NOTE | 2023-11-24 15:07 | ED_ITS ---
HPI - Nausea/Vomiting/Diarrhea 2 General: Chief complaint: Nausea/Vomiting/Diarrhea Stated complaint: N/V/D Time Seen by Provider: 11/24/23 14:49 Source: patient Mode of arrival: EMS Limitations: no limitations History of Present Illness: Patient is a 42-year-old female presenting to the emergency department via ambulance complaining of nausea vomiting and diarrhea for the past 2 days. Patient notes too many episodes of vomiting count, states that she recently had a STEMI and September. She did not have stents placed at that time, but now follows cardiology and last saw playback operator last month. She did not have these types of symptoms with her prior MA, but she is noting some shortness of breath and dizziness. She also notes an episode at 0130 this morning where she was lying in bed and blacked out and states it took her significant other about 10 minutes to wake her up. Patient only notes this 1 episode states this has never happened before. She does note that during the episode she vomited and nearly aspirated. No history of seizures reported. Patient is not reporting any chest pain at this time or palpitations. She is not currently on any blood thinners. Past medical history includes type 2 diabetes on insulin, hypokalemia, high cholesterol, and a psychiatric history. Patient is noting a decreased appetite, blood sugar on arrival was 290. MD elicited complaint: nausea, vomiting and diarrhea Pertinent past history: other (MA in September) Onset (ago): day(s) Description of vomiting: watery and bilious Associated nausea: Yes Associated abdominal pain: No Location of pain: None Exacerbating factors: eating Relieving factors: none Associated symtoms: Reports dizziness, malaise and nausea; Denies chest pain, dysuria, headache(s) or palpitations Review of Systems 2 General: Reports: 10 or more systems reviewed and unremarkable except in HPI and below Const: Reports: change in appetite and malaise; Denies: fever(s) or chills Card: Reports: lightheadedness; Denies: chest pain or palpitations Resp: Reports: dyspnea; Denies: productive cough or wheezing GI: Reports: nausea, vomiting and diarrhea; Denies: abdominal pain or constipation : Denies: flank pain, dysuria or hematuria Musc: Denies: neck pain, back pain, extremity pain or joint pain Skin/Breast: Denies: rash Neuro: Reports: dizziness; Denies: headache(s), numbness in extremities or weakness in extremities PFSH ED 2 PFSH: Medical History Atherosclerosis of [place] coronary artery without angina pectoris Chest pain Insomnia Uncontrolled diabetes mellitus Urolithiasis Morbid obesity Bipolar 2 disorder Post-traumatic stress disorder, chronic Nicotine dependence, cigarettes, uncomplicated Psychiatric care Urgency incontinence Major depressive disorder without psychotic features DM2 (diabetes mellitus, type 2) Dyslipidemia Low back pain with sciatica Hypothyroidism History of abdominal hernia X2 Surgical History Hx laparoscopic cholecystectomy 03/01/23 Dr. Alarcon Hx of colonoscopy 2010 History of hernia repair Hx of knee surgery right H/O: hysterectomy Hx of appendectomy Hx of laparoscopic gastric banding Family History Mother CAD (coronary artery disease) Stroke Father CAD (coronary artery disease) Other Cancer Diabetes Hypertension Social History Smoking and tobacco/nicotine status: current every day tobacco/nicotine user cigarettes Packs smoked per day: 1 Years cigarettes smoked: 28 Alcohol intake: never Substance/Drug Use: never Household members: family Housing: House Marital status: Legally Current occupational status: employed Female Reproductive History: Spontaneous abortions: No Physical Exam 2 Const: COMMON NORMALS: no acute distress, patient oriented x3, no limitations, alert and well nourished GENERAL APPEARANCE: cooperative, ill appearing and appears older than stated age NUTRITIONAL APPEARANCE: obese morbidly obese ORIENTATION/CONSCIOUSNESS: Yes awake HENMT: COMMON NORMALS: normocephalic, atraumatic, hearing grossly normal bilaterally, external ears normal, Normal external nose present and Normal nasal mucous membranes and turbinates present HEAD & SCALP: normocephalic and atraumatic NOSE: Normal external nose present and Normal nasal mucous membranes and turbinates present EXTERNAL EAR: Yes external ears normal O THER: Dry oral mucosa Eye: COMMON NORMALS: Equal, round and reactive pupils present, EOMs intact bilaterally, conjunctivae normal and normal visual snider by confrontation C ONJUNCTIVA: Yes conjunctivae normal PUPIL: Yes Equal, round and reactive pupils present Neck/C-Spine: COMMON NORMALS: full ROM, supple, no meningeal signs and no JVD Resp: COMMON NORMALS: normal respiratory effort, No retractions, No use of accessory muscles and clear to auscultation bilaterally AUSCULTATION: clear to auscultation bilaterally, no crackles, no rales, no rhonchi and no wheezes Cardio: COMMON NORMALS: no JVD, regular rate, regular rhythm, S1 normal heart sound present, S2 normal heart sound present, No gallops present (Cardio), No clicks present (Cardio), No murmurs present (Cardio), No rub (Cardio) and Peripheral pulses 2+ throughout RATE: regular rate RHYTHM: regular rhythm HEART SOUNDS: S1 normal heart sound present and S2 normal heart sound present PERIPHERAL PULSES: Peripheral pulses 2+ throughout GI: COMMON NORMALS: Normal to inspection, nondistended, normoactive bowel sounds present, Soft to palpation, non-tender, No hepatosplenomegaly present and no masses AUSCULTATION: Yes normoactive bowel sounds PALPATION: Yes Soft to palpation, No Guarding due to palpation present (GI), No Rigid due to palpation and Yes No hepatosplenomegaly present RECTAL EXAM: deferred : COMMON NORMALS: Yes no CVA tenderness BLADDER/KIDNEY EXAM: Yes no CVA tenderness Back/Pelvis: COMMON NORMALS: no CVA tenderness Extremity: COMMON NORMALS: normal to inspection and full ROM Neuro: COMMON NORMALS: patient oriented x3, moves all extremities, no focal motor deficits and no sensory deficits noted SENSORIUM/ORIENTATION: Yes alert MENINGEAL SIGNS: Yes no meningeal signs Psych: COMMON NORMALS: mental status grossly normal, cooperative and speech normal SPEECH: Yes normal speech Skin: COMMON NORMALS: no rashes or lesions noted GENERAL SKIN EXAM: no rashes or lesions noted Course 2 Vital Signs: Vital signs: Vital Signs Temperature 98.2 F 11/24/23 14:49 Pulse Rate 87 11/24/23 15:44 Respiratory Rate 16 11/24/23 15:44 Blood Pressure 154/99 11/24/23 15:44 Pulse Oximetry 90 11/24/23 15:44 Oxygen Delivery Me thod Room Air 11/24/23 15:44 MDM - Nausea/Vomiting/Diarrhea Medical Decision Making Patient was brought in by ambulance for evaluation of nausea vomiting and diarrhea for the past 2 days. Pertinent medical history of an MA back in September. Also has a history of type 2 diabetes on insulin. Her examination overall was unremarkable though she did appear clinically dehydrated. Her vitals were unremarkable and condition has remained stable throughout the ED course. She was started on a liter of fluids as well as IV Zofran. Her CBC and CMP overall unremarkable, demonstrating some hyperglycemia which seems to be baseline for patient. Serum ketones were negative. Arterial blood gas did not demonstrate any significant abnormalities. Her urinalysis did reveal evidence of a urinary tract infection, which likely could be contributing to patient's symptoms. Her chest x-ray additionally was unremarkable and her EKG revealed normal sinus rhythm rate [address] segment changes. Patient does feel better after receiving fluids and Zofran, and will discharge home with antibiotics. She also states she has Zofran at home that she will continue to take for nausea and vomiting. I urged her to increase her fluid intake and to follow-up with primary care for further outpatient evaluation. Strict return precautions given at this time. I did discuss this case with supervising physician, Dr. Huerta, who agrees with disposition. Lab Data 11/24/23 15:32 11/24/23 15:32 Radiology Impressions Chest X-Ray 11/24/23 15:00 IMPRESSION: No acute findings. Laboratory Results WBC 14.29 10^3/uL (3.29-11.43) H 11/24/23 15:32 RBC 5.24 10^6/uL (3.85-5.65) 11/24/23 15:32 Hgb 15.00 g/dL (11.27-16.99) 11/24/23 15:32 Hct 43.5 % (36-47) 11/24/23 15:32 MCV 83.0 fl (85-98) L 11/24/23 15:32 MCH 28.6 pg (27-33) 11/24/23 15:32 MCHC 34.5 g/dL (30-55) 11/24/23 15:32 RDW 12.2 % (12.1-15.1) 11/24/23 15:32 Plt Count 178 10^3/cmm (157-399) 11/24/23 15:32 MPV 12.9 fL (7.4-10.4) H 11/24/23 15:32 Neut % (Auto) 76.9 % 11/24/23 15:32 Lymph % (Auto) 15.0 % 11/24/23 15:32 [place] % (Auto) 5.9 % 11/24/23 15:32 Eos % (Auto) 1.5 % 11/24/23 15:32 Baso % (Auto) 0.3 % 11/24/23 15:32 Neut # (Auto) 10.96 10^3/uL (1.8-7.7) H 11/24/23 15:32 Lymph # (Auto) 2.2 10^3/uL (0.8-4.8) 11/24/23 15:32 [place] # (Auto) 0.9 10^3/uL (0.2-0.9) 11/24/23 15:32 Eos # (Auto) 0.2 10^3/uL (0.0-0.8) 11/24/23 15:32 Baso # (Auto) 0.1 10^3/uL (0.0-0.1) 11/24/23 15:32 Nucleated RBC % (auto) 0 % 11/24/23 15:32 Nucleated RBCs # 0.0 /100WBC 11/24/23 15:32 Specimen Type Arterial 11/24/23 15:55 Sample Site Brachial, left 11/24/23 15:55 ABG pH 7.43 (7.35-7.45) 11/24/23 15:55 ABG pCO2 42.4 mmHg (35-45) 11/24/23 15:55 ABG pO2 51.4 mmHg (80.0-100.0) L 11/24/23 15:55 ABG PO2/FiO2 Ratio 0 11/24/23 15:55 ABG HCO3 28.1 mmol/L (22-26) H 11/24/23 15:55 ABG O2 Saturation 89.8 11/24/23 15:55 ABG Base Excess 3.3 mmol/L (-2.0-2.0) H 11/24/23 15:55 Kendrick Test Pos 11/24/23 15:55 A-a O2 Gradient 5.9 mmHg (5-10) 11/24/23 15:55 Hematocrit 44.8 % (37-47) 11/24/23 15:55 Hgb O2 Saturation 83.1 % (95-100) L 11/24/23 15:55 Carboxyhemoglobin 7.9 %THgb (0.4-20.1) 11/24/23 15:55 Methemoglobin < 0.0 % (0.4-1.5) L 11/24/23 15:55 Total Hemoglobin 14.6 g/dL (12-16) 11/24/23 15:55 Sodium 136.0 mmol/L (131-143) 11/24/23 15:55 Potassium 4.0 mmol/L (3.5-5.0) 11/24/23 15:55 Glucose 191.0 mg/dL (70-115) H 11/24/23 15:55 Ionized Calcium 1.1 mmol/L (1.1-1.4) 11/24/23 15:55 O2 Delivery Device Room air 11/24/23 15:55 FiO2 21.0 % 11/24/23 15:55 Material Distributor ID Cak 11/24/23 15:55 Sodium 133 mmol/L (136-145) L 11/24/23 15:32 Potassium 4.2 mmol/L (3.5-5.1) 11/24/23 15:32 Chloride 95 mmol/L (98-107) L 11/24/23 15:32 Carbon Dioxide 28 mmol/L (22-29) 11/24/23 15:32 Anion Gap 14.2 (5-19) 11/24/23 15:32 BUN 6 mg/dL (6-20) 11/24/23 15:32 Creatinine 0.5 mg/dL (0.5-0.9) 11/24/23 15:32 GFR Calculation 134.0 mL/min (90-130) H 11/24/23 15:32 Glucose 218 mg/dL (65-115) H 11/24/23 15:32 Calculated Osmolality 280 mOsm/kg (285-295) L 11/24/23 15:32 Calcium 8.5 mg/dL (8.5-10.5) 11/24/23 15:32 Total Bilirubin 0.7 mg/dL (0.15-1.2) 11/24/23 15:32 AST 11 U/L (0-32) 11/24/23 15:32 ALT 17 U/L (0-33) 11/24/23 15:32 Alkaline Phosphatase 126 U/L (35-105) H 11/24/23 15:32 Troponin T Baseline < 6 ng/L (0-10) 11/24/23 15:32 Total Protein 6.6 g/dL (6.6-8.7) 11/24/23 15:32 Albumin 3.6 g/dL (3.5-5.2) 11/24/23 15:32 Globulin 3.0 g/dL (1.3-4.6) 11/24/23 15:32 Lipase 16 U/L (13-60) 11/24/23 15:32 Urine Color Yellow (Yellow) 11/24/23 15:32 Urine Appearance Slightly cloudy (CLEAR) 11/24/23 15:32 Urine pH 8 (5-7) H 11/24/23 15:32 Ur Specific [place] 1.015 (1.005-1.030) 11/24/23 15:32 Urine Protein Neg (Negative) 11/24/23 15:32 Urine Glucose (UA) Norm (Normal) 11/24/23 15:32 Urine Ketones Negative (Negative) 11/24/23 15:32 Urine Blood Neg (Negative) 11/24/23 15:32 Urine Nitrate Negative (Negative) 11/24/23 15:32 Urine Bilirubin Neg (Negative) 11/24/23 15:32 Prot Sulfosalicylic Acd Negative (Negative) 11/24/23 15:32 Urine Urobilinogen Norm mg/dL (Negative) 11/24/23 15:32 Ur Leukocyte Esterase Trace (Negative) H 11/24/23 15:32 Urine RBC None /hpf (0-2) 11/24/23 15:32 Urine WBC 25-40 /hpf (0-5) H 11/24/23 15:32 Ur Squamous Epith Cells 0-4 /hpf (0-5) H 11/24/23 15:32 Amorphous Sediment Not Reportable 11/24/23 15:32 Urine Bacteria 2+ /hpf (NONE) H 11/24/23 15:32 Serum Ketones Negative (Negative) 11/24/23 15:32 All radiology interpretation(s) finalized by discharge Discharge Plan Discharge Patient Disposition: Home Clinical Impression: Urinary tract infection, Dehydration Condition: Stable Prescriptions: New cefdinir 300 mg capsule 300 mg PO BID 10 Days Qty: 20 0RF No Action (DME) diabetic supplies, miscellan. Misc See Rx Instructions .ROUTE .MEDSUPPLY Qty: 1 3RF Rx Instructions: Diabetic shoes with 3 pair of inserts (DME) glucometer and strips 100 See Rx Instructions .Route .MEDSUPPLY Qty: 1 11RF Rx Instructions: check her glucose 3 times a day and adjust sliding scale insulin omeprazole 40 mg capsule,delayed release(DR/EC) 40 mg PO DAILY Qty: 90 2RF tramadol 50 mg tablet 50 mg PO TID PRN (Reason: pain) Qty: 90 5RF Hold Instructions: Resume on 03/06/23. (DME) Dexcom G7 Internal Audit Director [facility] See Rx Instructions .MEDSUPPLY Qty: 1 0RF Rx Instructions: Use as directed for checking blood sugar nystatin 100,000 unit/gram powder 1 applic topical BID Qty: 60 2RF ondansetron 8 mg tablet,disintegrating 8 mg PO Q8H PRN (Reason: nausea and vomiting) 5 Days Qty: 15 0RF eszopiclone 3 mg tablet 3 mg PO BEDTIME Qty: 30 2RF citalopram 20 mg tablet 20 mg PO QAM Qty: 30 2RF prazosin 2 mg capsule 4 mg PO BEDTIME Qty: 60 2RF cetirizine 10 mg tablet 10 mg PO DAILY@0900 PRN (Reason: Allergic Symptoms) Qty: 30 2RF (DME) Dexcom G7 Sensor Device See Rx Instructions .MEDSUPPLY Qty: 3 12RF Rx Instructions: Change every 10 days; Use as directed to check blood sugar carvedilol 3.125 mg tablet 3.125 mg PO BID Qty: 60 5RF Rx Instructions: must administer with a meal/food atorvastatin [Lipitor] 40 mg tablet 40 mg PO DAILY Qty: 30 5RF (DME) Blood Glucose Test Strip See Rx Instructions .MEDSUPPLY Qty: 200 12RF Rx Instructions: Use as directed with glucometer to check blood sugar (DME) Monoject Safety Syringes 6 mL syringe See Rx Instructions .Route Qty: 300 0RF Rx Instructions: Use once a day to inject Lantus. (DME) pen needle, diabetic [Comfort EZ Pen [place]] 32 gauge x 5/32 needle See Rx Instructions .Route Qty: 100 2RF Rx Instructions: Use 3 times a day to inject Novolog tizanidine 4 mg tablet 4 mg PO TID PRN (Reason: Muscle Spasm) Qty: 60 2RF insulin glargine [Lantus U-100 Insulin] 100 unit/mL solution 40 unit SUBCUT BEDTIME Qty: 10 5RF Vraylar 3 mg capsule 3 mg PO BEDTIME Qty: 30 2RF (DME) pen needle, diabetic [TechLITE Pen Needle] 31 gauge x 5/16 needle See Rx Instructions .Route Qty: 100 2RF Rx Instructions: As directed gabapentin 300 mg capsule See Rx Instructions .ROUTE .COMPLEX Qty: 120 5RF Dose Instruction: TAKE 1 CAPSULE BY MOUTH THREE TIMES DAILY AT 9 AM, NOON, AND 8 PM Rx Instructions: Take 1 capsule (300mg) by mouth at 9am and 12pm and two capsules (600mg) at bedtime. Novolog FlexPen U-100 Insulin 100 unit/mL (3 mL) insulin pen See Rx Instructions .ROUTE .COMPLEX Rx Instructions: sliding sclae tid Discharge Orders: Discharge ED (Routine); Ordered 11/24/23 Ordered By: Zenon Lombardi Referrals: Moris Null, [Primary Care Provider] - Discharge Diet: As Directed Discharge Activity: Increase activity as tolerated Patient Instructions: Dehydration (ED), Urinary Tract Infection in Women (ED) Activity Restrictions/Additional Instructions: Increase your fluid intake at home. Antibiotics as prescribed. Take Zofran that you already have at home for nausea. Follow-up with your primary care provider for further outpatient evaluation. Return with any new or worsening symptoms you may have. Coding Level of Care Code ED Pattern Worker for Alcides Biggs
[2023-11-24] MEDS: ondansetron 2 mg/ML SDV 2 mL 4 MG IVP (15:36)
[2023-11-24] MEDS: sodium chloride 0.9% 1,000 ML 999 ML IV (15:37)
[2023-11-24 15:44] VITALS: BP 154/99; PULSE 87; RESP 16; O2SAT 90
[2023-11-24 15:44] LABS: Basophils # 0.1 10^3/uL (0.0-0.1); Basophils % 0.3 %; Eosinophils # 0.2 10^3/uL (0.0-0.8); Eosinophils % 1.5 %; Hematocrit 43.5 % (36-47); Lymphocytes # 2.2 10^3/uL (0.8-4.8); Mean Corpuscular HGB Conc 34.5 g/dL (30-55); Mean Corpuscular Hemoglobin 28.6 pg (27-33); Mean Platelet Volume 12.9 fL (7.4-10.4); Monocytes # 0.9 10^3/uL (0.2-0.9); Monocytes % 5.9 %; Neutrophils # 10.96 10^3/uL (1.8-7.7); Neutrophils % 76.9 %; Nucleated Red Blood Cells % 0 %; Platelet Count 178 10^3/cmm (157-399); Red Blood Count 5.24 10^6/uL (3.85-5.65); Red Cell Distribution Width 12.2 % (12.1-15.1); White Blood Count 14.29 10^3/uL (3.29-11.43)
[2023-11-24 15:50] LABS: Specific Gravity, Urine 1.015 (1.005-1.030); Urine Appearance Slightly Cloudy (CLEAR); Urine Color Yellow (Yellow); pH Urine 8 (5-7)
[2023-11-24 15:51] LABS: Add Urine Culture? Yes; Add Urine Microscopic? YES; Bacteria Urine 2+ /hpf; Bilirubin Urine Neg (Negative); Blood Urine Neg (Negative); Glucose Urine UA Norm (Normal); Ketones Urine Negative (Negative); Leukocyte Esterase Urine Trace (Negative); Nitrate Urine Negative (Negative); Protein Urine Neg (Negative); Squamous Epithelial Cell Urine 0-4 /hpf (0-5); Sulfosalicylic Acid Urine Negative (Negative); Urobilinogen Urine Norm (Negative); WBC Urine 25-40 /hpf (0-5)
[2023-11-24 16:06] LABS: Alanine Aminotransferase 17 U/L (0-33); Albumin Level 3.6 g/dL (3.5-5.2); Alkaline Phosphatase 126 U/L (35-105); Anion Gap 14.2 (5-19); Aspartate Amino Transferase 11 U/L (0-32); Blood Urea Nitrogen 6 mg/dL (6-20); Calcium 8.5 mg/dL (8.5-10.5); Carbon Dioxide 28 mmol/L (22-29); Chloride 95 mmol/L (98-107); Creatinine Clr Calc Pharmacy 175.9722; Glucose 218 mg/dL (65-115); Lipase 16 U/L (13-60); Osmolality Calculated 280 mOsm/kg (285-295); Potassium 4.2 mmol/L (3.5-5.1); Sodium 133 mmol/L (136-145); Total Bilirubin 0.7 mg/dL (0.15-1.2); Total Protein 6.6 g/dL (6.6-8.7)
[2023-11-24 16:06] LABS: ABG PCO2 42.4 mmHg (35-45); ABG PH Result 7.43 (7.35-7.45); Alveolar-Arterial Oxygen Gradi 5.9 mmHg (5-10); Arterial Blood Gas Hematocrit 44.8 % (37-47); Base Excess ABG 3.3 mmol/L (-2.0-2.0); Blood Gas Allen Test Pos; Blood Gas Operator Identificat CAK; Blood Gas Sample Site Brachial, left; Blood Gas Sample Type Arterial; Carboxyhemoglobin 7.9 %THgb (0.4-20.1); HCO3 ABG 28.1 mmol/L (22-26); HGB O2 Sat 83.1 % (95-100); Ionized Calcium Level - ABG 1.1 mmol/L (1.1-1.4); Methemoglobin < 0.0 % (0.4-1.5); Oxygen Device ROOM AIR; Oxygen Saturation ABG 89.8; PO2 ABG 51.4 mmHg (80.0-100.0); PO2 FiO2 Ratio Arterial Blood 0; Total Hemoglobin 14.6 g/dL (12-16)
[2023-11-24 16:07] LABS: Troponin(5th) Baseline < 6 ng/L (0-10)
[2023-11-24 16:44] LABS: Ketone (Acetest) Serum Negative (Negative)
--- NOTE | 2023-11-24 17:01 | ECG_ITS ---
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 Measurements Intervals [place] Rate: 96 P: 59 MS: 193 QRS: -64 QRSD: 83 T: 46 QT: 338 QTc: 429 Interpretive Statements SINUS RHYTHM LOW QRS VOLTAGE IN PRECORDIAL LEADS [QRS DEFLECTION < 1.0 mV IN CHEST LEADS] LEFT ANTERIOR FASCICULAR BLOCK [QRS AXIS <= -45, QR IN I, RS IN II] POSSIBLE ANTERIOR MYOCARDIAL INFARCTION , PROBABLY OLD [30 ms Q WAVE IN V3/V4, OR R < 0.2 mV IN V4] Compared to ECG 09/23/2023 23:40:01 Left anterior fascicular block now present Myocardial infarct finding now present Left-axis deviation no longer present Electronically Signed On 11-25-2023 20:37:42 CDT by Maurisio Andrade M.D. [id number]
[2023-11-24 17:07] VITALS: BP 148/96; PULSE 111; RESP 16; TEMP 36.8; O2SAT 92
== END 2023-11-24 17:09 | disposition home or self-care (01) ==
PROVIDERS: Emergency Provider Physician Assistant; PCP Family Medicine
DX: N39.0 Urinary tract infection, site not specified (principal); E86.0 Dehydration; Z79.4 Long term (current) use of insulin; F17.210 Nicotine dependence, cigarettes, uncomplicated; I25.10 Atherosclerotic heart disease of native coronary artery without angina pectoris; E11.9 Type 2 diabetes mellitus without complications; E78.5 Hyperlipidemia, unspecified
CPT/HCPCS: 36600; 71045; 80051; 80053; 81001; 82009; 82330; 82805; 83690; 84484; 85025; 87077; 87086; 87186; 93005; 96374; 99285; J2405; J7030

== ENCOUNTER 2023-12-13 20:38 | Emergency (ER) | payer MEDICAID, SELFPAY ==
[2023-09-26 14:30] VITALS: BP 113/78; BMI 42.6
[2023-12-13 20:42] VITALS: BP 153/101; PULSE 85; RESP 18; TEMP 36.4; O2SAT 94; BMI 41.5
--- NOTE | 2023-12-13 20:52 | CTR_ITS ---
PROCEDURE INFORMATION: Exam: CT Head Without Contrast Exam date and time: 12/13/2023 9:15 PM Age: 43 years old Clinical indication: Injury or trauma; Fall; Other: Pain; Additional info: Fall, head injury TECHNIQUE: Imaging protocol: Computed tomography of the head without contrast. Radiation optimization: All CT scans at this facility use at least one of these dose optimization techniques: automated exposure control; mA and/or kV adjustment per patient size (includes targeted exams where dose is matched to clinical indication); or iterative reconstruction. COMPARISON: CT head wo con* [id number] 02/03/2019 1:06 AM RADIATION DOSE METRICS: Total DLP (mGy-cm): 1063.5 FINDINGS: Brain: Normal. No hemorrhage. Unremarkable white matter. No mass effect. Cerebral ventricles: No ventriculomegaly. Paranasal sinuses: Small polyp or retention cyst in the right frontal sinus. The other sinuses are clear. No fluid level. Mastoid air cells: Visualized mastoid air cells are well aerated. Bones: Unremarkable. No acute fracture. Soft tissues: Unremarkable. CT/CT head wo con* [id number] IMPRESSION: 1. No acute intracranial abnormality.
--- NOTE | 2023-12-13 20:55 | ED_ITS ---
HPI - Headache General: Chief Complaint: Headache Stated Complaint: migraine 3 days,getting worse fell hit quaker toda Time Seen by Provider: 12/13/23 20:52 History of Present Illness: Hyperlipidemia, hypertension, bipolar 2, obesity, PTSD, diabetes and a history of migraines who presents to the emergency room with a migraine for the last 3 days. She says this is just like when she used to have migraines but she has not had 1 in quite some time. She has not been on any medications for a while. She says she was on Topamax but now she is allergic to it. She has had photophobia and phonophobia. Nausea. She said she had a syncopal episode and fell and does not remember this but when she woke up the side of her head hurt. This was yesterday. Currently no focal motor deficits. No altered mental status. No chest pain. No shortness of breath. No abdominal pain. Review of Systems Narrative: Constitutional symptoms: Negative except as documented in HPI. Skin symptoms: Negative except as documented in HPI. Eye symptoms: Negative except as documented in HPI. ENMT symptoms: Negative except as documented in HPI. Respiratory symptoms: Negative except as documented in HPI. Cardiovascular symptoms: Negative except as documented in HPI. Gastrointestinal symptoms: Negative except as documented in HPI. Genitourinary symptoms: Negative except as documented in HPI. Musculoskeletal symptoms: Negative except as documented in HPI. Neurologic symptoms: Negative except as documented in HPI. Psychiatric symptoms: Negative except as documented in HPI. Endocrine symptoms: Negative except as documented in HPI. [facility] ED PFSH: Medical History Atherosclerosis of [place] coronary artery without angina pectoris Chest pain Insomnia Uncontrolled diabetes mellitus Urolithiasis Morbid obesity Bipolar 2 disorder Post-traumatic stress disorder, chronic Nicotine dependence, cigarettes, uncomplicated Psychiatric care Urgency incontinence Major depressive disorder without psychotic features DM2 (diabetes mellitus, type 2) Dyslipidemia Low back pain with sciatica Hypothyroidism History of abdominal hernia X2 Surgical History Hx laparoscopic cholecystectomy 03/01/23 Dr. Alarcon Hx of colonoscopy 2010 History of hernia repair Hx of knee surgery right H/O: hysterectomy Hx of appendectomy Hx of laparoscopic gastric banding Family History Mother CAD (coronary artery disease) Stroke Father CAD (coronary artery disease) Other Cancer Diabetes Hypertension Social History Smoking and tobacco/nicotine status: current every day tobacco/nicotine user cigarettes Packs smoked per day: 1 Years cigarettes smoked: 28 Alcohol intake: never Substance/Drug Use: never Household members: family Housing: House Marital status: Legally Current occupational status: employed Female Reproductive History: Spontaneous abortions: No Physical Exam Narrative: EXAM NARRATIVE: General: Alert, no acute distress. Skin: warm and dry Head: Normocephalic Neck: Trachea midline Eye: Extraocular movements are intact. Ears, nose, mouth and throat: Tacky oral mucosa Respiratory: Respirations are non-labored Musculoskeletal: Normal ROM Neurological: Alert and oriented, No focal neurological deficit observed. Psychiatric: Cooperative, appropriate mood & affect. Course Vital Signs: Vital signs: Vital Signs Temperature 97.6 F 12/13/23 20:42 Pulse Rate 85 12/13/23 20:42 Respiratory Rate 18 12/13/23 20:42 Blood Pressure 153/101 12/13/23 20:42 Pulse Oximetry 94 12/13/23 20:42 Oxygen Delivery Me thod Room Air 12/13/23 20:42 MDM - Headache Medical Decision Making CT head: No acute intracranial process. no intracranial hemorrhage, no evidence of infarct. no evidence of acute fracture.This was reviewed and interpreted by myself the ER physician. Assessment and plan: Migraine headache Head injury ?IV Depacon, IV Zofran, IV Toradol and IV fluids. - Discharged home - Discussed plan with patient. Answered any questions. - Evaluation and treatment of this problem were appropriate in the emergency setting. XR interpretation done by ED provider, pending radiology final review Discharge Plan Discharge Patient Disposition: Home Clinical Impression: Migraine Qualifiers: Migraine type: other Status migrainosus presence: without status migrainosus Intractability: intractable Qualified Code(s): G43.819 - Other migraine, intractable, without status migrainosus Condition: Stable Prescriptions: No Action (DME) diabetic supplies, miscellan. Misc See Rx Instructions .ROUTE .MEDSUPPLY Qty: 1 3RF Rx Instructions: Diabetic shoes with 3 pair of inserts (DME) glucometer and strips 100 See Rx Instructions .Route .MEDSUPPLY Qty: 1 11RF Rx Instructions: check her glucose 3 times a day and adjust sliding scale insulin omeprazole 40 mg capsule,delayed release(DR/EC) 40 mg PO DAILY Qty: 90 2RF tramadol 50 mg tablet 50 mg PO TID PRN (Reason: pain) Qty: 90 5RF Hold Instructions: Resume on 03/06/23. 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 Misc See Rx Instructions .MEDSUPPLY Qty: 1 0RF Rx Instructions: Use as directed for checking blood sugar nystatin 100,000 unit/gram powder 1 applic topical BID Qty: 60 2RF ondansetron 8 mg tablet,disintegrating 8 mg PO Q8H PRN (Reason: nausea and vomiting) 5 Days Qty: 15 0RF eszopiclone 3 mg tablet 3 mg PO BEDTIME Qty: 30 2RF prazosin 2 mg capsule 4 mg PO BEDTIME Qty: 60 2RF cetirizine 10 mg tablet 10 mg PO DAILY@0900 PRN (Reason: Allergic Symptoms) Qty: 30 2RF (DME) Dexcom G7 Sensor Device See Rx Instructions .MEDSUPPLY Qty: 3 12RF Rx Instructions: Change every 10 days; Use as directed to check blood sugar carvedilol 3.125 mg tablet 3.125 mg PO BID Qty: 60 5RF Rx Instructions: must administer with a meal/food atorvastatin [Lipitor] 40 mg tablet 40 mg PO DAILY Qty: 30 5RF (DME) Blood Glucose Test Strip See Rx Instructions .MEDSUPPLY Qty: 200 12RF Rx Instructions: Use as directed with glucometer to check blood sugar (DME) Monoject Safety Syringes 6 mL syringe See Rx Instructions .Route Qty: 300 0RF Rx Instructions: Use once a day to inject Lantus. (DME) pen needle, diabetic [Comfort EZ Pen [place]] 32 gauge x 5/32 needle See Rx Instructions .Route Qty: 100 2RF Rx Instructions: Use 3 times a day to inject Novolog tizanidine 4 mg tablet 4 mg PO TID PRN (Reason: Muscle Spasm) Qty: 60 2RF Vraylar 3 mg capsule 3 mg PO BEDTIME Qty: 30 2RF (DME) pen needle, diabetic [TechLITE Pen Needle] 31 gauge x 5/16 needle See Rx Instructions .Route Qty: 100 2RF Rx Instructions: As directed gabapentin 300 mg capsule See Rx Instructions .ROUTE .COMPLEX Qty: 120 5RF Dose Instruction: TAKE 1 CAPSULE BY MOUTH THREE TIMES DAILY AT 9 AM, NOON, AND 8 PM Rx Instructions: Take 1 capsule (300mg) by mouth at 9am and 12pm and two capsules (600mg) at bedtime. citalopram 20 mg tablet 20 mg PO QAM Qty: 30 2RF Novolog FlexPen U-100 Insulin 100 unit/mL (3 mL) insulin pen See Rx Instructions .ROUTE .COMPLEX Rx Instructions: sliding sclae tid Discharge Orders: Discharge ED (Routine); Ordered 12/13/23 Ordered By: Lori Leung Referrals: Moris Null DO [Primary Care Provider] - 1-3 days Discharge Diet: Usual diet Discharge Activity: Increase activity as tolerated Patient Instructions: Migraine Headache (ED) Activity Restrictions/Additional Instructions: Thank you for choosing [facility] for your healthcare needs today. Please realize this is an emergency room and that we are providing you with a medical screening exam and this may not be complete and all inclusive of all the testing and or work up that you may need to determine your ailment or severity of your illness. You have been screened and evaluated and felt safe for discharge. Health conditions do change or evolve sometimes and as such it is important that you follow up with your Primary Doctor to be re checked, 3-5 days is a general good time frame for follow up. You are always welcome to return to the ED for re assessment if your symptoms are worsening or you have new concerns Coding Level of Care Code ED Garbage Truck Dispatcher for Alcides Biggs
[2023-12-13] MEDS: sodium chloride 0.9% 1,000 ML 999 ML IV (21:55)
[2023-12-13] MEDS: valproic acid inj 500 MG in sodium chloride 0.9% 50 ML 55 MG IV (21:55)
[2023-12-13] MEDS: ketorolac 30 mg/mL INJ IVP (21:55)
[2023-12-13] MEDS: ondansetron 2 mg/ML SDV 2 mL 4 MG IVP (21:55)
[2023-12-13 21:57] VITALS: PULSE 80; RESP 16; O2SAT 96
[2023-12-13 22:00] VITALS: PULSE 98; RESP 18; O2SAT 99
[2023-12-13 22:05] VITALS: PULSE 89; RESP 16; O2SAT 99
[2023-12-13] MEDS: diphenhydrAMINE 50 mg/mL SDV 1mL IVP (23:26)
[2023-12-13] MEDS: metoclopramide 5 mg/mL SDV 2 mL 10 MG IVP (23:26)
[2023-12-14] VITALS: PULSE 82; RESP 16; O2SAT 95
[2023-12-14 00:36] VITALS: BP 163/87; PULSE 60; O2SAT 95
== END 2023-12-14 00:37 | disposition home or self-care (01) ==
PROVIDERS: Emergency Provider Emergency Medicine; PCP Family Medicine
DX: G43.819 Other migraine, intractable, without status migrainosus (principal); Z79.4 Long term (current) use of insulin; F17.210 Nicotine dependence, cigarettes, uncomplicated; I25.10 Atherosclerotic heart disease of native coronary artery without angina pectoris; E11.9 Type 2 diabetes mellitus without complications; E78.5 Hyperlipidemia, unspecified
CPT/HCPCS: 70450; 96374; 96375; 99285; J1200; J1885; J2405; J2765; J3490; J7030

== ENCOUNTER 2023-12-17 13:38 | Emergency (ER) | payer MEDICAID, SELFPAY ==
[2023-09-26 14:30] VITALS: BP 113/78; BMI 42.6
[2023-12-17 13:40] VITALS: BP 125/83; PULSE 92; RESP 18; TEMP 36.8; O2SAT 94
--- NOTE | 2023-12-17 13:42 | ECG_ITS ---
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 Measurements Intervals [place] Rate: 93 P: 52 [place]: 189 QRS: -37 QRSD: 82 T: 31 QT: 350 QTc: 436 Interpretive Statements SINUS RHYTHM LEFT AXIS DEVIATION [QRS AXIS < -30] LOW QRS VOLTAGE IN PRECORDIAL LEADS [QRS DEFLECTION < 1.0 mV IN CHEST LEADS] POSSIBLE ANTERIOR MYOCARDIAL INFARCTION , OF INDETERMINATE AGE [30 ms Q WAVE IN V3/V4, OR R < 0.2 mV IN V4] Compared to ECG 11/24/2023 14:51:43 Left-axis deviation now present Left anterior fascicular block no longer present Myocardial infarct finding still present Electronically Signed On 12-18-2023 21:52:11 CDT by Maurisio Andrade M.D. [email or web address]/[id number]
--- NOTE | 2023-12-17 13:42 | XR_ITS ---
WS: [id number] XR chest 1V portable [id number] REASON FOR EXAM: chest pain FINDINGS: The chest is unchanged compared to 11/24/2023. Mild tortuosity of the thoracic aorta. Mild cardiomegaly. Calcified granulomas disease in both hemithoraces. No acute or subacute pulmonary parenchymal or pleural abnormality. No lung nodule or lung mass. No adenopathy. Mild levoscoliosis of the thoracic spine with moderate degenerative spondylosis. XR/XR chest 1V portable [id number] IMPRESSION: Stable chest with mild cardiomegaly. No acute chest abnormality.
[2023-12-17 14:29] LABS: Basophils % 0.4 %; Eosinophils # 0.2 10^3/uL (0.0-0.8); Eosinophils % 2.3 %; Hematocrit 42.8 % (36-47); Lymphocytes # 2.7 10^3/uL (0.8-4.8); Lymphocytes % 29.3 %; Mean Corpuscular HGB Conc 33.6 g/dL (30-55); Mean Corpuscular Hemoglobin 28.3 pg (27-33); Mean Corpuscular Volume 84.3 fl (85-98); Mean Platelet Volume 13.4 fL (7.4-10.4); Monocytes # 0.5 10^3/uL (0.2-0.9); Monocytes % 5.6 %; Neutrophils # 5.77 10^3/uL (1.8-7.7); Neutrophils % 62.1 %; Nucleated Red Blood Cells % 0 %; Platelet Count 178 10^3/cmm (157-399); Red Blood Count 5.08 10^6/uL (3.85-5.65); Red Cell Distribution Width 12.4 % (12.1-15.1); White Blood Count 9.29 10^3/uL (3.29-11.43)
[2023-12-17 14:52] LABS: Troponin(5th) Baseline < 6 ng/L (0-10)
[2023-12-17 14:55] LABS: HCG, Serum Qual Negative (Negative)
[2023-12-17 15:01] LABS: Alanine Aminotransferase 14 U/L (0-33); Alkaline Phosphatase 109 U/L (35-105); Anion Gap 10.9 (5-19); Aspartate Amino Transferase 12 U/L (0-32); Blood Urea Nitrogen 10 mg/dL (6-20); Calcium 9.2 mg/dL (8.5-10.5); Carbon Dioxide 29 mmol/L (22-29); Chloride 100 mmol/L (98-107); Creatinine Clr Calc Pharmacy 143.4202; Globulin 2.3 g/dL (1.3-4.6); Glomerular Filtration Rate 108.1 mL/min (90-130); Glucose 254 mg/dL (65-115); Osmolality Calculated 288 mOsm/kg (285-295); Potassium 4.9 mmol/L (3.5-5.1); Sodium 135 mmol/L (136-145); Total Bilirubin 0.4 mg/dL (0.15-1.2); Total Protein 6.3 g/dL (6.6-8.7)
--- NOTE | 2023-12-17 15:22 | ED_ITS ---
HPI - Chest Pain 2 General: Chief Complaint: Chest Pain Stated Complaint: chest pain Time Seen by Provider: 12/17/23 15:20 History of Present Illness: 43-year-old female with a history of obe sity, hypertension, hyperlipidemia, insulin-dependent diabetes and nonocclusive coronary artery disease diagnosed on a cath she tells me a couple months back. She says she had a heart attack at that time but they did not see enough occlusion to put in a stent. She presents today with chest pain in her left chest that goes into her left neck that started about 30 minutes before she arrived here. No cough. No shortness of breath. No abdominal pain. No nausea or vomiting. No altered mental status. No focal motor deficits. No lower extremity swelling Review of Systems 2 Narrative: Constitutional symptoms: Negative except as documented in HPI. Skin symptoms: Negative except as documented in HPI. Eye symptoms: Negative except as documented in HPI. ENMT symptoms: Negative except as documented in HPI. Respiratory symptoms: Negative except as documented in HPI. Cardiovascular symptoms: Negative except as documented in HPI. Gastrointestinal symptoms: Negative except as documented in HPI. Genitourinary symptoms: Negative except as documented in HPI. Musculoskeletal symptoms: Negative except as documented in HPI. Neurologic symptoms: Negative except as documented in HPI. Psychiatric symptoms: Negative except as documented in HPI. Endocrine symptoms: Negative except as documented in HPI. PFSH ED 2 PFSH: Medical History Atherosclerosis of [place] coronary artery without angina pectoris Chest pain Insomnia Uncontrolled diabetes mellitus Urolithiasis Morbid obesity Bipolar 2 disorder Post-traumatic stress disorder, chronic Nicotine dependence, cigarettes, uncomplicated Psychiatric care Urgency incontinence Major depressive disorder without psychotic features DM2 (diabetes mellitus, type 2) Dyslipidemia Low back pain with sciatica Hypothyroidism History of abdominal hernia X2 Surgical History Hx laparoscopic cholecystectomy 03/01/23 Dr. Alarcon Hx of colonoscopy 2010 History of hernia repair Hx of knee surgery right H/O: hysterectomy Hx of appendectomy Hx of laparoscopic gastric banding Family History Mother CAD (coronary artery disease) Stroke Father CAD (coronary artery disease) Other Cancer Diabetes Hypertension Social History (Reviewed 06/12/24 @ 10:11 by KATHRYN Vidal Smoking and tobacco/nicotine status: current every day tobacco/nicotine user cigarettes Packs smoked per day: 1 Years cigarettes smoked: 28 Alcohol intake: never Substance/Drug Use: never Household members: family Housing: House Marital status: Legally Current occupational status: employed Female Reproductive History: Spontaneous abortions: No Physical Exam 2 Narrative: EXAM NARRATIVE: General: Alert, no acute distress. Skin: Warm, dry. Head: Normocephalic, atraumatic. Neck: Supple, trachea midline. Eye: Extraocular movements are intact. Ears, nose, mouth and throat: mucosa moist. Cardiovascular: Regular, Normal peripheral perfusion. Respiratory: Lungs are clear to auscultation, respirations are non-labored, breath sounds are equal, Symmetrical chest wall expansion. Gastrointestinal: Soft, Nontender, Non distended Musculoskeletal: Normal ROM, no deformity. Neurological: Alert and oriented, No focal neurological deficit observed. Psychiatric: Cooperative, appropriate mood & affect. Course 2 Vital Signs: Vital signs: Vital Signs Temperature 98.2 F 12/17/23 13:40 Pulse Rate 72 12/17/23 15:45 Respiratory Rate 20 H 12/17/23 15:45 Blood Pressure 144/90 12/17/23 15:45 Pulse Oximetry 94 12/17/23 15:45 Oxygen Delivery Me thod Room Air 12/17/23 13:40 MDM - Chest Pain Medical Decision Making Differential diagnosis for patient with chest pain includes but is not limited to and based on the above HPI, review of systems and physical exam: Pneumonia. unstable angina. angina. Acute coronary syndrome / DC. Pulmonary embolism. Costochondritis / musculoskeletal. Pleurisy. Pericarditis. Esophageal spasm. Pancreatis. Cholecystitis. Orders placed to evaluate differential diagnosis based on the above differential, HPI and physical exam EKG: Time 1339. Rate 93. Normal sinus rhythm, No ST-T changes, no ectopy, normal TX & QRS intervals, This was reviewed and interpreted by myself the ER physician at 1345 Chest x-ray: No acute process. No infiltrate. No pneumothorax. This was reviewed and interpreted by myself the ER physician. Lab Review: Laboratory results were reviewed and interpreted by myself the emergency room physician. Lab work is completely unremarkable. No leukocytosis. No anemia. No renal failure. Glucose is elevated at 254. Serial troponins are negative. I reviewed the patient's medical record. Emergency Department Assessment of Chest Pain Score (EDACS) from [employer] on 12/17/2023 All calculations should be rechecked by clinician prior to use RESULT SUMMARY: 7 points Low risk by the EDACS Score. If the patient also has: (1) EKG without new ischemic changes and (2) negative initial and 2-hour troponins, then this patient is safe for discharge to early outpatient follow-up investigation (or proceed to earlier inpatient testing). If EKG with ischemic changes or positive troponin, they are not low risk and require normal risk stratification. INPUTS: Age ?> 43 years Sex ?> 0 = Female Known coronary artery disease or >= risk factors ?> 0 = No Diaphoresis ?> 0 = No Pain radiates to arm, shoulder, neck, or jaw ?> 5 = Yes Pain occurred or worsened with inspiration ?> 0 = No Pain is reproduced by palpation ?> 0 = No Reexamination: Patient remained stable. She is chest pain-free on discharge. No increased work of breathing. No altered mental status. Assessment and plan: Noncardiac chest pain - Discharged home - Discussed findings and plan with patient. Answered any questions. - All laboratory values were reviewed and interpreted personally by myself, the ER physician - All imaging was reviewed and interpreted personally by myself, the ER physician. - Evaluation and treatment of this problem were appropriate in the emergency setting Lab Data 12/17/23 14:15 12/17/23 14:15 Radiology Impressions Chest X-Ray 12/17/23 13:42 IMPRESSION: Stable chest with mild cardiomegaly. No acute chest abnormality. Laboratory Results WBC 9.29 10^3/uL (3.29-11.43) 12/17/23 14:15 RBC 5.08 10^6/uL (3.85-5.65) 12/17/23 14:15 Hgb 14.40 g/dL (11.27-16.99) 12/17/23 14:15 Hct 42.8 % (36-47) 12/17/23 14:15 MCV 84.3 fl (85-98) L 12/17/23 14:15 MCH 28.3 pg (27-33) 12/17/23 14:15 MCHC 33.6 g/dL (30-55) 12/17/23 14:15 RDW 12.4 % (12.1-15.1) 12/17/23 14:15 Plt Count 178 10^3/cmm (157-399) 12/17/23 14:15 MPV 13.4 fL (7.4-10.4) H 12/17/23 14:15 Neut % (Auto) 62.1 % 12/17/23 14:15 Lymph % (Auto) 29.3 % 12/17/23 14:15 [place] % (Auto) 5.6 % 12/17/23 14:15 Eos % (Auto) 2.3 % 12/17/23 14:15 Baso % (Auto) 0.4 % 12/17/23 14:15 Neut # (Auto) 5.77 10^3/uL (1.8-7.7) 12/17/23 14:15 Lymph # (Auto) 2.7 10^3/uL (0.8-4.8) 12/17/23 14:15 [place] # (Auto) 0.5 10^3/uL (0.2-0.9) 12/17/23 14:15 Eos # (Auto) 0.2 10^3/uL (0.0-0.8) 12/17/23 14:15 Baso # (Auto) 0.0 10^3/uL (0.0-0.1) 12/17/23 14:15 Nucleated RBC % (auto) 0 % 12/17/23 14:15 Nucleated RBCs # 0.0 /100WBC 12/17/23 14:15 Sodium 135 mmol/L (136-145) L 12/17/23 14:15 Potassium 4.9 mmol/L (3.5-5.1) 12/17/23 14:15 Chloride 100 mmol/L (98-107) 12/17/23 14:15 Carbon Dioxide 29 mmol/L (22-29) 12/17/23 14:15 Anion Gap 10.9 (5-19) 12/17/23 14:15 BUN 10 mg/dL (6-20) 12/17/23 14:15 Creatinine 0.6 mg/dL (0.5-0.9) 12/17/23 14:15 GFR Calculation 108.1 mL/min (90-130) 12/17/23 14:15 Glucose 254 mg/dL (65-115) H 12/17/23 14:15 Calculated Osmolality 288 mOsm/kg (285-295) 12/17/23 14:15 Calcium 9.2 mg/dL (8.5-10.5) 12/17/23 14:15 Total Bilirubin 0.4 mg/dL (0.15-1.2) 12/17/23 14:15 AST 12 U/L (0-32) 12/17/23 14:15 ALT 14 U/L (0-33) 12/17/23 14:15 Alkaline Phosphatase 109 U/L (35-105) H 12/17/23 14:15 Troponin T Baseline < 6 ng/L (0-10) 12/17/23 14:15 Troponin T 120 Minute 6.00 ng/L (0-10) 12/17/23 16:04 Delta Troponin T 0.16397 ABS# (0-10) 12/17/23 16:04 Total Protein 6.3 g/dL (6.6-8.7) L 12/17/23 14:15 Albumin 4.0 g/dL (3.5-5.2) 12/17/23 14:15 Globulin 2.3 g/dL (1.3-4.6) 12/17/23 14:15 HCG, Qual Negative (Negative) 12/17/23 14:15 All radiology interpretation(s) finalized by discharge Discharge Plan Discharge Patient Disposition: Home Clinical Impression: Non-cardiac chest pain Condition: Stable Prescriptions: No Action (DME) diabetic supplies, miscellan. Misc See Rx Instructions .ROUTE .MEDSUPPLY Qty: 1 3RF Rx Instructions: Diabetic shoes with 3 pair of inserts (DME) glucometer and strips 100 See Rx Instructions .Route .MEDSUPPLY Qty: 1 11RF Rx Instructions: check her glucose 3 times a day and adjust sliding scale insulin omeprazole 40 mg capsule,delayed release(DR/EC) 40 mg PO DAILY Qty: 90 2RF tramadol 50 mg tablet 50 mg PO TID PRN (Reason: pain) Qty: 90 5RF Hold Instructions: Resume on 03/06/23. 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 Misc See Rx Instructions .MEDSUPPLY Qty: 1 0RF Rx Instructions: Use as directed for checking blood sugar nystatin 100,000 unit/gram powder 1 applic topical BID Qty: 60 2RF ondansetron 8 mg tablet,disintegrating 8 mg PO Q8H PRN (Reason: nausea and vomiting) 5 Days Qty: 15 0RF eszopiclone 3 mg tablet 3 mg PO BEDTIME Qty: 30 2RF prazosin 2 mg capsule 4 mg PO BEDTIME Qty: 60 2RF (DME) Dexcom G7 Sensor Device See Rx Instructions .MEDSUPPLY Qty: 3 12RF Rx Instructions: Change every 10 days; Use as directed to check blood sugar carvedilol 3.125 mg tablet 3.125 mg PO BID Qty: 60 5RF Rx Instructions: must administer with a meal/food atorvastatin [Lipitor] 40 mg tablet 40 mg PO DAILY Qty: 30 5RF (DME) Blood Glucose Test Strip See Rx Instructions .MEDSUPPLY Qty: 200 12RF Rx Instructions: Use as directed with glucometer to check blood sugar (DME) Monoject Safety Syringes 6 mL syringe See Rx Instructions .Route Qty: 300 0RF Rx Instructions: Use once a day to inject Lantus. (DME) pen needle, diabetic [Comfort EZ Pen [place]] 32 gauge x 5/32 needle See Rx Instructions .Route Qty: 100 2RF Rx Instructions: Use 3 times a day to inject Novolog tizanidine 4 mg tablet 4 mg PO TID PRN (Reason: Muscle Spasm) Qty: 60 2RF Vraylar 3 mg capsule 3 mg PO BEDTIME Qty: 30 2RF (DME) pen needle, diabetic [TechLITE Pen Needle] 31 gauge x 5/16 needle See Rx Instructions .Route Qty: 100 2RF Rx Instructions: As directed gabapentin 300 mg capsule See Rx Instructions .ROUTE .COMPLEX Qty: 120 5RF Dose Instruction: TAKE 1 CAPSULE BY MOUTH THREE TIMES DAILY AT 9 AM, NOON, AND 8 PM Rx Instructions: Take 1 capsule (300mg) by mouth at 9am and 12pm and two capsules (600mg) at bedtime. citalopram 20 mg tablet 20 mg PO QAM Qty: 30 2RF cetirizine 10 mg tablet See Rx Instructions .ROUTE .COMPLEX Qty: 90 0RF Dose Instruction: TAKE 1 TABLET BY MOUTH DAILY AT 9 AM NEEDED FOR ALLERGY SYMPTOMS Rx Instructions: TAKE 1 TABLET BY MOUTH DAILY AT 9 AM NEEDED FOR ALLERGY SYMPTOMS Novolog FlexPen U-100 Insulin 100 unit/mL (3 mL) insulin pen See Rx Instructions .ROUTE .COMPLEX Rx Instructions: sliding sclae tid Discharge Orders: Discharge ED (Routine); Ordered 12/17/23 Ordered By: Lori Leung Referrals: Moris Null DO [Primary Care Provider] - Discharge Diet: Usual diet Discharge Activity: Increase activity as tolerated Patient Instructions: Noncardiac Chest Pain (ED) Activity Restrictions/Additional Instructions: Thank you for choosing [facility] for your healthcare needs today. Please realize this is an emergency room and that we are providing you with a medical screening exam and this may not be complete and all inclusive of all the testing and or work up that you may need to determine your ailment or severity of your illness. You have been screened and evaluated and felt safe for discharge. Health conditions do change or evolve sometimes and as such it is important that you follow up with your Primary Doctor to be re checked, 3-5 days is a general good time frame for follow up. You are always welcome to return to the ED for re assessment if your symptoms are worsening or you have new concerns Coding Level of Care Code ED Human Resource Statistician for Alcides Biggs
--- NOTE | 2023-12-17 15:42 | ECG_ITS ---
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 Measurements Intervals [place] Rate: 65 P: 61 [place]: 189 QRS: -14 QRSD: 82 T: 46 QT: 415 QTc: 432 Interpretive Statements SINUS RHYTHM SEPTAL MYOCARDIAL INFARCTION , OF INDETERMINATE AGE [40+ ms Q WAVE IN V1/V2] MODERATE T-WAVE ABNORMALITY, CONSIDER ANTERIOR ISCHEMIA [-0.1+ mV T-WAVE IN V3/V4] Compared to ECG 12/17/2023 13:39:27 T-wave abnormality now present Possible ischemia now present Left-axis deviation no longer present Myocardial infarct finding still present Electronically Signed On 12-18-2023 22:07:12 CDT by Maurisio Andrade M.D. [id number]
[2023-12-17 15:45] VITALS: BP 144/90; PULSE 72; RESP 20; O2SAT 94
[2023-12-17 16:30] LABS: Troponin 5 2HR Delta 0.00001 ABS# (0-10)
== END 2023-12-17 17:48 | disposition home or self-care (01) ==
PROVIDERS: Physician Assistant; Emergency Provider Emergency Medicine; PCP Family Medicine
DX: R07.89 Other chest pain (principal); Z79.4 Long term (current) use of insulin; F17.210 Nicotine dependence, cigarettes, uncomplicated; I25.10 Atherosclerotic heart disease of native coronary artery without angina pectoris; E11.9 Type 2 diabetes mellitus without complications; E78.5 Hyperlipidemia, unspecified
CPT/HCPCS: 36415; 71045; 80053; 84484; 84703; 85025; 93005; 99285

== ENCOUNTER 2024-01-02 10:38 | Outpatient (CLI) | payer MEDICAID, SELFPAY ==
[2023-09-26 14:30] VITALS: BP 113/78; BMI 42.6
--- NOTE | 2024-01-02 10:48 | XRR_ITS ---
PROCEDURE INFORMATION: Exam: XR Lumbosacral Spine Exam date and time: 01/02/2024 11:01 AM Age: 43 years old Clinical indication: Injury or trauma; Fall; Blunt trauma (contusions or hematomas); Additional info: Fall with injury TECHNIQUE: Imaging protocol: Radiologic exam of the lumbosacral spine. Views: 2 or 3 views. COMPARISON: CR XR lumbar spine 2-3V* [id number] 06/07/2023 8:44 AM FINDINGS: Bones/joints: Moderate multilevel spondylosis of the lumbar spine with facet arthrosis and osteophytosis. No evidence of acute fracture or subluxation. The sacrum and coccyx are partially obscured by bowel gas/stool. Soft tissues: Grossly unremarkable. Clips noted projecting in the pelvis. A reservoir and catheter are noted projecting over the midabdomen related to gastric band. XR/XR lumbar spine 2-3V* [id number] IMPRESSION: 1. No evidence of acute fracture or subluxation of the lumbar spine. If there is ongoing clinical concern, consider correlation with CT.
== END 2024-01-02 10:39 | disposition home or self-care (01) ==
PROVIDERS: PCP Family Medicine; Visit Provider Family Medicine
DX: M47.896 Other spondylosis, lumbar region (principal); M25.78 Osteophyte, vertebrae; W19.XXXA Unspecified fall, initial encounter; T14.90XA Injury, unspecified, initial encounter; Z98.84 Bariatric surgery status
CPT/HCPCS: 72100

== ENCOUNTER 2024-01-17 13:12 | Emergency (ER) | payer MEDICAID, SELFPAY ==
[2023-09-26 14:30] VITALS: BP 113/78; BMI 42.6
[2024-01-17 13:17] VITALS: BP 126/85; PULSE 83; RESP 16; TEMP 36.7; O2SAT 95; BMI 41.7
--- NOTE | 2024-01-17 13:37 | XR_ITS ---
WS: [id number] Portable AP upright chest, 01/17/2024 Clinical Data: weakness Comparison: Portable chest, 12/17/2023 Findings: No nodules, masses or effusions are seen. The heart is slightly enlarged. The pulmonary vas cularity is not increased. No pneumonia or pneumothorax is seen. XR/XR chest 1V portable [id number] Impression: Minimal cardiomegaly.
--- NOTE | 2024-01-17 13:37 | CT_ITS ---
WS: [id number] CT HEAD TECHNIQUE: Noncontrast CT of the head obtained from the skullbase to the vertex. CLINICAL INFORMATION: weakness COMPARISON: CT 12/13/2023 DLP: 1095.[address] scans at [facility] use at least one of these dose optimization techniques: automated e xposure control; mA and/or kV adjustment per patient size (includes targeted exams where dose is matc hed to clinical indication); or iterative reconstruction. FINDINGS: No evidence of intracranial hemorrhage or mass effect. Ventricular system and basal cisterns are mejias nt. Mild small vessel changes with mild parenchymal volume loss. No extra-axial fluid collections. No evidence of mass or mass effect. Vascular calcification. Paranasal sinuses and mastoid air cells are well aerated. .Normal visualized soft tissues. CT/CT head wo con* [id number] IMPRESSION: 1. No evidence of intracranial hemorrhage or mass effect. 2. No acute intracranial findings.
--- NOTE | 2024-01-17 13:38 | ECG_ITS ---
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 Measurements Intervals [place] Rate: 71 P: 70 [place]: 200 QRS: 46 QRSD: 89 T: 62 QT: 410 QTc: 446 Interpretive Statements SINUS RHYTHM INDETERMINATE AXIS LOW QRS VOLTAGE IN PRECORDIAL LEADS [QRS DEFLECTION < 1.0 mV IN CHEST LEADS] POSSIBLE ANTERIOR MYOCARDIAL INFARCTION , PROBABLY OLD [30 ms Q WAVE IN V3/V4, OR R < 0.2 mV IN V4] Compared to ECG 12/17/2023 15:42:29 Indeterminate axis now present Low QRS voltage now present T-wave abnormality no longer present Possible ischemia no longer present Myocardial infarct finding still present Electronically Signed On 01-17-2024 15:34:03 CDT by Jae Calzada M.D. [id number]
--- NOTE | 2024-01-17 13:40 | ED_ITS ---
HPI - Weakness 2 General: Chief complaint: Weakness Stated complaint: dizziness, fainting Time Seen by Provider: 01/17/24 13:20 Source: patient Mode of arrival: ambulatory Limitations: no limitations History of Present Illness: 43-year-old female states that over the last 3 days she has been having some fatigue along with lightheadedness. States she had some vomiting and diffuse abdominal pain and states she has had lightheadedness where she felt like she is get a pass out. She denies any vertigo she denies a headache denies any chest pain Associated symptoms: Reports nausea and vomiting; Denies chest pain, chills, fever(s) or headache(s) Review of Systems 2 Const: Denies: fever(s), chills, body aches or change in appetite ENMT: Denies: throat pain or dental pain Card: Reports: lightheadedness and pre-syncope; Denies: chest pain Resp: Denies: dyspnea GI: Reports: nausea and vomiting; Denies: abdominal pain or diarrhea Musc: Denies: neck pain or back pain Skin/Breast: Denies: rash Neuro: Denies: headache(s) PFSH ED 2 PFSH: Medical History Atherosclerosis of [place] coronary artery without angina pectoris Chest pain Insomnia Uncontrolled diabetes mellitus Urolithiasis Morbid obesity Bipolar 2 disorder Post-traumatic stress disorder, chronic Nicotine dependence, cigarettes, uncomplicated Psychiatric care Urgency incontinence Major depressive disorder without psychotic features DM2 (diabetes mellitus, type 2) Dyslipidemia Low back pain with sciatica Hypothyroidism History of abdominal hernia X2 Surgical History Hx laparoscopic cholecystectomy 03/01/23 Dr. Alarcon Hx of colonoscopy 2009 History of hernia repair Hx of knee surgery right H/O: hysterectomy Hx of appendectomy Hx of laparoscopic gastric banding Family History Mother CAD (coronary artery disease) Stroke Father CAD (coronary artery disease) Other Cancer Diabetes Hypertension Social History Smoking and tobacco/nicotine status: current every day tobacco/nicotine user cigarettes Packs smoked per day: 1 Years cigarettes smoked: 28 Alcohol intake: never Substance/Drug Use: never Household members: family Housing: House Marital status: Legally Current occupational status: employed Female Reproductive History: Spontaneous abortions: No Physical Exam 2 Const: COMMON NORMALS: no acute distress, patient oriented x3 and healthy appearing HENMT: COMMON NORMALS: normocephalic and atraumatic HEAD & SCALP: n ormocephalic and atraumatic Eye: COMMON NORMALS: Equal, round and reactive pupils present and EOMs intact bilaterally PUPIL: Yes Equal, round and reactive pupils present Neck/C-Spine: COMMON NORMALS: full ROM and supple Chest: COMMONS NORMALS: normal inspection of the chest and normal palpation of entire chest wall Resp: COMMON NORMALS: normal respiratory effort, No retractions, No use of accessory muscles and clear to auscultation bilaterally AUSCULTATION: clear to auscultation bilaterally Cardio: COMMON NORMALS: regular rate, regular rhythm and No murmurs present (Cardio) RATE: regular rate RHYTHM: regular rhythm GI: COMMON NORMALS: Normal to inspection, nondistended, normoactive bowel sounds present, Soft to palpation, non-tender and no masses PALPATION: Yes Soft to palpation Extremity: COMMON NORMALS: normal to inspection and full ROM Neuro: COMMON NORMALS: patient oriented x3, moves all extremities and no focal motor deficits Psych: COMMON NORMALS: mental status grossly normal, Normal thought process present and cooperative THOUGHT PROCESS: Normal thought process present Skin: COMMON NORMALS: no rashes or lesions noted and no wounds GENERAL SKIN EXAM: no rashes or lesions noted Course 2 Vital Signs: Vital signs: Vital Signs Temperature 98.1 F 01/17/24 13:17 Pulse Rate 83 01/17/24 13:17 Respiratory Rate 16 01/17/24 13:17 Blood Pressure 126/85 01/17/24 13:17 Pulse Oximetry 95 01/17/24 13:17 MDM - Weakness Medical Decision Making Patient presents here with lightheadedness likely from some dehydration given IV fluids here she feels improved blood works normal head CT is normal she has no signs of posterior stroke able to ambulate without any difficulty she stable for discharge follow-up with PCP return if worsening Medical Records I reviewed the patient's medical records. Lab Data I reviewed the patient's lab results. 01/17/24 13:52 01/17/24 13:52 Radiology Impressions Chest X-Ray 01/17/24 13:37 Impression: Minimal cardiomegaly. Head CT 01/17/24 13:37 IMPRESSION: 1. No evidence of intracranial hemorrhage or mass effect. 2. No acute intracranial findings. Laboratory Results WBC 8.07 10^3/uL (3.29-11.43) 01/17/24 13:52 RBC 5.21 10^6/uL (3.85-5.65) 01/17/24 13:52 Hgb 14.80 g/dL (11.27-16.99) 01/17/24 13:52 Hct 44.1 % (36-47) 01/17/24 13:52 MCV 84.6 fl (85-98) L 01/17/24 13:52 MCH 28.4 pg (27-33) 01/17/24 13:52 MCHC 33.6 g/dL (30-55) 01/17/24 13:52 RDW 12.6 % (12.1-15.1) 01/17/24 13:52 Plt Count 183 10^3/cmm (157-399) 01/17/24 13:52 MPV 12.9 fL (7.4-10.4) H 01/17/24 13:52 Neut % (Auto) 56.4 % 01/17/24 13:52 Lymph % (Auto) 33.2 % 01/17/24 13:52 [place] % (Auto) 6.4 % 01/17/24 13:52 Eos % (Auto) 3.0 % 01/17/24 13:52 Baso % (Auto) 0.6 % 01/17/24 13:52 Neut # (Auto) 4.55 10^3/uL (1.8-7.7) 01/17/24 13:52 Lymph # (Auto) 2.7 10^3/uL (0.8-4.8) 01/17/24 13:52 [place] # (Auto) 0.5 10^3/uL (0.2-0.9) 01/17/24 13:52 Eos # (Auto) 0.2 10^3/uL (0.0-0.8) 01/17/24 13:52 Baso # (Auto) 0.1 10^3/uL (0.0-0.1) 01/17/24 13:52 Nucleated RBC % (auto) 0 % 01/17/24 13:52 Nucleated RBCs # 0.0 /100WBC 01/17/24 13:52 Sodium 137 mmol/L (136-145) 01/17/24 13:52 Potassium 4.0 mmol/L (3.5-5.1) 01/17/24 13:52 Chloride 102 mmol/L (98-107) 01/17/24 13:52 Carbon Dioxide 23 mmol/L (22-29) 01/17/24 13:52 Anion Gap 16.0 (5-19) 01/17/24 13:52 BUN 8 mg/dL (6-20) 01/17/24 13:52 Creatinine 0.5 mg/dL (0.5-0.9) 01/17/24 13:52 GFR Calculation 133.4 mL/min (90-130) H 01/17/24 13:52 Glucose 214 mg/dL (65-115) H 01/17/24 13:52 Calculated Osmolality 289 mOsm/kg (285-295) 01/17/24 13:52 Calcium 9.0 mg/dL (8.5-10.5) 01/17/24 13:52 Total Bilirubin 0.5 mg/dL (0.15-1.2) 01/17/24 13:52 AST 12 U/L (0-32) 01/17/24 13:52 ALT 17 U/L (0-33) 01/17/24 13:52 Alkaline Phosphatase 104 U/L (35-105) 01/17/24 13:52 Total Protein 6.6 g/dL (6.6-8.7) 01/17/24 13:52 Albumin 3.8 g/dL (3.5-5.2) 01/17/24 13:52 Globulin 2.8 g/dL (1.3-4.6) 01/17/24 13:52 Lipase 20 U/L (13-60) 01/17/24 13:52 Urine Color Yellow (Yellow) 01/17/24 14:27 Urine Appearance Clear (CLEAR) 01/17/24 14:27 Urine pH 5.5 (5-7) 01/17/24 14:27 Ur Specific [place] 1.019 (1.005-1.030) 01/17/24 14:27 Urine Protein Negative (Negative) 01/17/24 14:27 Urine Glucose (UA) 2+ (Normal) H 01/17/24 14:27 Urine Ketones Negative (Negative) 01/17/24 14:27 Urine Blood Negative (Negative) 01/17/24 14:27 Urine Nitrate Negative (Negative) 01/17/24 14:27 Urine Bilirubin Negative (Negative) 01/17/24 14:27 Urine Urobilinogen 1.0 mg/dL (Negative) 01/17/24 14:27 Ur Leukocyte Esterase Negative (Negative) 01/17/24 14:27 Amorphous Sediment Not Reportable 01/17/24 14:27 All radiology interpretation(s) finalized by discharge EKG Data EKG 1: I personally reviewed and interpreted this EKG as follows: EKG interpretation date: 01/17/24 EKG interpretation time: 13:42 Interpretation: nsr hr [address] or t wave abnormalities qrs 89 qtc 432 Discharge Plan Discharge Patient Disposition: Home Clinical Impression: Near syncope, Vomiting Condition: Stable Prescriptions: New ondansetron 4 mg tablet,disintegrating 4 mg PO Q6H PRN (Reason: nausea and vomiting) Qty: 14 0RF No Action (DME) diabetic supplies, miscellan. Misc See Rx Instructions .ROUTE .MEDSUPPLY Qty: 1 3RF Rx Instructions: Diabetic shoes with 3 pair of inserts (DME) glucometer and strips 100 See Rx Instructions .Route .MEDSUPPLY Qty: 1 11RF Rx Instructions: check her glucose 3 times a day and adjust sliding scale insulin omeprazole 40 mg capsule,delayed release(DR/EC) 40 mg PO DAILY Qty: 90 2RF tramadol 50 mg tablet 50 mg PO TID PRN (Reason: pain) Qty: 90 5RF Hold Instructions: Resume on 03/06/23. insulin glargine [Lantus U-100 Insulin] 100 unit/mL solution 50 unit SUBCUT BEDTIME Qty: 10 5RF nystatin 100,000 unit/gram powder 1 applic topical BID Qty: 60 2RF ondansetron 8 mg tablet,disintegrating 8 mg PO Q8H PRN (Reason: nausea and vomiting) 5 Days Qty: 15 0RF eszopiclone 3 mg tablet 3 mg PO BEDTIME Qty: 30 2RF prazosin 2 mg capsule 4 mg PO BEDTIME Qty: 60 2RF (DME) Dexcom G7 Sensor Device See Rx Instructions .MEDSUPPLY Qty: 3 12RF Rx Instructions: Change every 10 days; Use as directed to check blood sugar carvedilol 3.125 mg tablet 3.125 mg PO BID Qty: 60 5RF atorvastatin [Lipitor] 40 mg tablet 40 mg PO DAILY Qty: 30 5RF (DME) Blood Glucose Test Strip See Rx Instructions .MEDSUPPLY Qty: 200 12RF Rx Instructions: Use as directed with glucometer to check blood sugar (DME) Monoject Safety Syringes 6 mL syringe See Rx Instructions .Route Qty: 300 0RF Rx Instructions: Use once a day to inject Lantus. (DME) pen needle, diabetic [Comfort EZ Pen [place]] 32 gauge x 5/32 needle See Rx Instructions .Route Qty: 100 2RF Rx Instructions: Use 3 times a day to inject Novolog Vraylar 3 mg capsule 3 mg PO BEDTIME Qty: 30 2RF (DME) pen needle, diabetic [TechLITE Pen Needle] 31 gauge x 5/16 needle See Rx Instructions .Route Qty: 100 2RF Rx Instructions: As directed gabapentin 300 mg capsule See Rx Instructions .ROUTE .COMPLEX Qty: 120 5RF Dose Instruction: TAKE 1 CAPSULE BY MOUTH THREE TIMES DAILY AT 9 AM, NOON, AND 8 PM Rx Instructions: Take 1 capsule (300mg) by mouth at 9am and 12pm and two capsules (600mg) at bedtime. citalopram 20 mg tablet 20 mg PO QAM Qty: 30 2RF cetirizine 10 mg tablet See Rx Instructions .ROUTE .COMPLEX Qty: 90 0RF Dose Instruction: TAKE 1 TABLET BY MOUTH DAILY AT 9 AM NEEDED FOR ALLERGY SYMPTOMS Rx Instructions: TAKE 1 TABLET BY MOUTH DAILY AT 9 AM NEEDED FOR ALLERGY SYMPTOMS tizanidine 4 mg tablet 4 mg PO TID PRN (Reason: Muscle Spasm) Qty: 60 2RF (DME) Dexcom G7 Swinging Cut Off Saw Operator Misc See Rx Instructions .MEDSUPPLY Qty: 1 0RF Rx Instructions: Use as directed for checking blood sugar insulin aspart U-100 [Novolog FlexPen U-100 Insulin] 100 unit/mL (3 mL) insulin pen See Rx Instructions .ROUTE .COMPLEX Rx Instructions: TAKE PER SLIDING SCALE 3 TIMES DAILY. Discharge Orders: Discharge ED (Routine); Ordered 01/17/24 Ordered By: Ajay Coffman Referrals: Moris Null DO [Primary Care Provider] - 4-7 days Discharge Diet: Advance as tolerated Discharge Activity: Resume usual activity Patient Instructions: Near Syncope (ED) Coding Level of Care Code ED Storm Sash Maker for Alcides Biggs
[2024-01-17 14:00] LABS: Basophils # 0.1 10^3/uL (0.0-0.1); Basophils % 0.6 %; Eosinophils # 0.2 10^3/uL (0.0-0.8); Hematocrit 44.1 % (36-47); Lymphocytes # 2.7 10^3/uL (0.8-4.8); Lymphocytes % 33.2 %; Mean Corpuscular HGB Conc 33.6 g/dL (30-55); Mean Corpuscular Hemoglobin 28.4 pg (27-33); Mean Corpuscular Volume 84.6 fl (85-98); Mean Platelet Volume 12.9 fL (7.4-10.4); Monocytes # 0.5 10^3/uL (0.2-0.9); Monocytes % 6.4 %; Neutrophils # 4.55 10^3/uL (1.8-7.7); Neutrophils % 56.4 %; Nucleated Red Blood Cells % 0 %; Platelet Count 183 10^3/cmm (157-399); Red Blood Count 5.21 10^6/uL (3.85-5.65); Red Cell Distribution Width 12.6 % (12.1-15.1); White Blood Count 8.07 10^3/uL (3.29-11.43)
[2024-01-17 14:15] LABS: Alanine Aminotransferase 17 U/L (0-33); Albumin Level 3.8 g/dL (3.5-5.2); Alkaline Phosphatase 104 U/L (35-105); Aspartate Amino Transferase 12 U/L (0-32); Blood Urea Nitrogen 8 mg/dL (6-20); Carbon Dioxide 23 mmol/L (22-29); Chloride 102 mmol/L (98-107); Creatinine Clr Calc Pharmacy 172.5116; Globulin 2.8 g/dL (1.3-4.6); Glomerular Filtration Rate 133.4 mL/min (90-130); Glucose 214 mg/dL (65-115); Lipase 20 U/L (13-60); Osmolality Calculated 289 mOsm/kg (285-295); Sodium 137 mmol/L (136-145); Total Bilirubin 0.5 mg/dL (0.15-1.2); Total Protein 6.6 g/dL (6.6-8.7)
[2024-01-17 14:33] LABS: Charge for UA Resulting for Rev
[2024-01-17 14:36] LABS: Bilirubin Urine Negative (Negative); Blood Urine Negative (Negative); Glucose Urine UA 2+ (Normal); Ketones Urine Negative (Negative); Leukocyte Esterase Urine Negative (Negative); Nitrate Urine Negative (Negative); Protein Urine Negative (Negative); Specific Gravity, Urine 1.019 (1.005-1.030); Urine Appearance Clear (CLEAR); Urine Color Yellow (Yellow); pH Urine 5.5 (5-7)
[2024-01-17 15:07] VITALS: BP 132/87; PULSE 79; RESP 16; TEMP 36.7; O2SAT 96
== END 2024-01-17 15:08 | disposition home or self-care (01) ==
PROVIDERS: Emergency Provider Emergency Medicine; PCP Family Medicine
DX: R55 Syncope and collapse (principal); R11.10 Vomiting, unspecified; F17.210 Nicotine dependence, cigarettes, uncomplicated; E11.9 Type 2 diabetes mellitus without complications; E66.01 Morbid (severe) obesity due to excess calories; Z68.41 Body mass index [BMI] 40.0-44.9, adult
CPT/HCPCS: 36415; 70450; 71045; 80053; 81003; 81015; 83690; 85025; 93005; 99285; J2405; J7030

== ENCOUNTER → 2024-02-29 09:51 | Outpatient (BNVA) | payer MEDICAID, SELFPAY ==
[2023-09-26 14:30] VITALS: BP 113/78; BMI 42.6
== END ==
PROVIDERS: PCP Family Medicine; Visit Provider Family Medicine
DX: Z76.89 Persons encountering health services in other specified circumstances (principal); Z98.84 Bariatric surgery status; Z79.4 Long term (current) use of insulin; I10 Essential (primary) hypertension; I25.10 Atherosclerotic heart disease of native coronary artery without angina pectoris; E78.5 Hyperlipidemia, unspecified; E11.9 Type 2 diabetes mellitus without complications; E03.9 Hypothyroidism, unspecified; K21.9 Gastro-esophageal reflux disease without esophagitis; E66.01 Morbid (severe) obesity due to excess calories; M54.42 Lumbago with sciatica, left side; M54.41 Lumbago with sciatica, right side; G89.29 Other chronic pain; F17.210 Nicotine dependence, cigarettes, uncomplicated
CPT/HCPCS: 80053; 82043; 82306; 82607; 83036; 84443

== ENCOUNTER 2024-03-09 06:47 | Emergency (ER) | payer MEDICAID, SELFPAY ==
[2023-09-26 14:30] VITALS: BP 113/78; BMI 42.6
[2024-03-09 06:55] VITALS: BP 120/73; PULSE 66; RESP 18; TEMP 36.7; O2SAT 93; BMI 41.7
--- NOTE | 2024-03-09 07:08 | W.ED.HA ---
HPI - Headache General: Chief Complaint: Headache Stated Complaint: migraine Time Seen by Provider: 03/09/24 06:59 History of Present Illness: 43-year-old female with history of migraines who presents emergency room with a migraine headache is been present for about 4 days. Ldin-hew-wnsetfw medications have not helped. She has had photophobia. Phonophobia. Nausea and vomiting. No altered mental status. No head injuries. No focal motor deficits. No abdominal pain. No fevers. No cough Related Data Home Medications Medication Instructions Recorded Confirmed insulin aspart U-100 100 unit/mL See Rx Instructions .Route .COMPLEX 09/24/23 02/29/24 (3 mL) subcutaneous pen (Novolog FlexPen U-100 Insulin aspart) Previous Rx's Medication Instructions Recorded diabetic supplies, miscellan. #1 ea 08/22/22 glucometer and strips 100 #1 ea 05/28/23 blood sugar diagnostic (Blood #200 ea 08/09/23 Glucose Test strips) pen needle, diabetic 32 gauge x #100 ea 09/05/23 (Comfort EZ Pen [place]) syringe with needle 6 mL (Monoject #300 ea 09/05/23 Safety Syringes) nystatin 100,000 unit/gram topical 1 applic topical BID #60 grams 10/04/23 powder pen needle, diabetic 31 gauge x #100 ea 10/25/2310/31 (TechLITE Pen Needle) ondansetron 8 mg disintegrating 8 mg PO Q8H PRN nausea and 10/27/23 tablet vomiting 5 days #15 tabs atorvastatin 40 mg tablet (Lipitor) 40 mg PO DAILY #30 tabs 10/30/23 carvedilol 3.125 mg tablet 3.125 mg PO BID #60 tabs 10/30/23 blood-glucose sensor (Dexcom G7 #3 ea 10/31/23 Sensor device) gabapentin 300 mg capsule See Rx Instructions .Route 11/22/23 .COMPLEX #120 caps insulin glargine 100 unit/mL 50 unit (0.5 mL) SUBCUT BEDTIME 11/28/23 subcutaneous solution (Lantus #10 mL U-100 Insulin) tizanidine 4 mg tablet 4 mg PO TID PRN Muscle Spasm #60 12/19/23 tabs blood-glucose meter,continuous #1 ea 12/27/23 (Dexcom G7 Research Quality Assurance Specialist) ondansetron 4 mg disintegrating 4 mg PO Q6H PRN nausea and 01/17/24 tablet vomiting #14 tabs cariprazine 3 mg capsule (Vraylar) 3 mg PO BEDTIME #30 caps 01/18/24 citalopram 20 mg tablet 20 mg PO QAM #30 tabs 01/18/24 eszopiclone 3 mg tablet 3 mg PO BEDTIME #30 tabs 01/18/24 prazosin 2 mg capsule 4 mg (2 x 2 mg) PO BEDTIME #60 caps 01/18/24 tramadol 50 mg tablet 50 mg PO TID PRN pain #90 tabs 01/22/24 omeprazole 40 mg capsule,delayed 40 mg PO DAILY #90 caps 02/11/24 release cetirizine 10 mg tablet See Rx Instructions .Route 02/19/24 .COMPLEX #90 tabs empagliflozin 25 mg tablet 25 mg PO DAILY #30 tabs 02/29/24 famotidine 20 mg tablet 20 mg PO DAILY #30 tabs 02/29/24 insulin glargine-yfgn 100 unit/mL 60 unit (0.6 mL) SUBCUT .qpm #15 mL 02/29/24 (3 mL) subcutaneous pen cholecalciferol (vitamin D3) 50 50 mcg PO DAILY #30 caps 03/02/24 mcg (2,000 unit) capsule Allergies Allergy/AdvReac Type Severity Reaction Status Date / Time codeine Allergy Intermediate HALLUCINATI Verified 02/29/24 08:47 ONS latex Allergy Intermediate HIVES Verified 02/29/24 08:47 aspirin Allergy RASH Verified 02/29/24 08:47 oxycodone [From Percocet] Allergy RASH Verified 02/29/24 08:47 topiramate [From Topamax] Allergy RASH Verified 02/29/24 08:47 sumatriptan AdvReac Intermediate SOB; Verified 02/29/24 08:47 WHEEZING; DIZZINESS Review of Systems Narrative: Constitutional symptoms: Negative except as documented in HPI. Skin symptoms: Negative except as documented in HPI. Eye symptoms: Negative except as documented in HPI. ENMT symptoms: Negative except as documented in HPI. Respiratory symptoms: Negative except as documented in HPI. Cardiovascular symptoms: Negative except as documented in HPI. Gastrointestinal symptoms: Negative except as documented in HPI. Genitourinary symptoms: Negative except as documented in HPI. Musculoskeletal symptoms: Negative except as documented in HPI. Neurologic symptoms: Negative except as documented in HPI. Psychiatric symptoms: Negative except as documented in HPI. Endocrine symptoms: Negative except as documented in HPI. PFSH ED PFSH: Medical History (Updated 03/09/24 @ 07:13 by Lori Leung MD) HOMER (obstructive sleep apnea) on BIPAP Diabetic neuropathy associated with type 2 diabetes mellitus Uncontrolled type 2 diabetes mellitus with insulin therapy Facet arthritis, degenerative, lumbar spine Atherosclerosis of [place] coronary artery without angina pectoris Insomnia Urolithiasis Morbid obesity Bipolar 2 disorder Post-traumatic stress disorder, chronic Nicotine dependence, cigarettes, uncomplicated Psychiatric care Major depressive disorder without psychotic features Dyslipidemia Low back pain with sciatica Hypothyroidism Surgical History (Updated 02/29/24 @ 09:22 by Mikaela Hernadez MD) Hx of percutaneous transluminal coronary angioplasty History of total knee arthroplasty Right--has had 2 TKA--first in [facility]--got infected then had another TKA at [facility] Hx laparoscopic cholecystectomy 03/01/23 Dr. Alarcon Hx of colonoscopy 2009 History of hernia repair umbilical and abdominal R side H/O: hysterectomy w/ BSO; had precancerous cells age 14, then had hyst for menometrorrhagia Hx of appendectomy 2005 Hx of laparoscopic gastric banding 2009 Family History Mother CAD (coronary artery disease) Stroke Father CAD (coronary artery disease) Other Cancer Diabetes Hypertension Social History (Updated 02/29/24 @ 09:26 by Mikaela Hernadez MD) Smoking and tobacco/nicotine status: current every day tobacco/nicotine user cigarettes Packs smoked per day: 1.5 Years cigarettes smoked: 28 Alcohol intake: never Substance/Drug Use: never Household members: significant other Housing: House Marital status: / Number of children: 0 Current occupational status: employed Current occupation: [employer] and [employer] Female Reproductive History: Spontaneous abortions: No Physical Exam Narrative: EXAM NARRATIVE: General: Alert, no acute distress. Skin: warm and dry Head: Normocephalic Neck: Trachea midline Eye: Extraocular movements are intact. Ears, nose, mouth and throat: Oral mucosa moist Respiratory: Respirations are non-labored Musculoskeletal: Normal ROM Neurological: Alert and oriented, No focal neurological deficit observed. Psychiatric: Cooperative, appropriate mood & affect. Course Vital Signs: Vital signs: Vital Signs Temperature 98.1 F 03/09/24 06:55 Pulse Rate 66 03/09/24 06:55 Respiratory Rate 18 03/09/24 06:55 Blood Pressure 120/73 03/09/24 06:55 Pulse Oximetry 93 03/09/24 06:55 Oxygen Delivery Me thod Room Air 03/09/24 06:55 MDM - Headache Medical Decision Making Assessment and plan: Migraine headache - 50 mg IV Benadryl - 30 mg IV Toradol - 10 mg IV Reglan - 8 mg IV Benadryl - 60 mg IV Norflex - 1 L normal saline bolus - Discharged home - Discussed plan with patient. Answered any questions. - Evaluation and treatment of this problem were appropriate in the emergency setting. No radiology studies performed this visit Discharge Plan Discharge Patient Disposition: Home Clinical Impression: Migraine Condition: Stable Prescriptions: No Action (DME) diabetic supplies, miscellan. Misc See Rx Instructions .ROUTE .MEDSUPPLY Qty: 1 3RF Rx Instructions: Diabetic shoes with 3 pair of inserts (DME) glucometer and strips 100 See Rx Instructions .Route .MEDSUPPLY Qty: 1 11RF Rx Instructions: check her glucose 3 times a day and adjust sliding scale insulin insulin glargine [Lantus U-100 Insulin] 100 unit/mL solution 50 unit SUBCUT BEDTIME Qty: 10 5RF nystatin 100,000 unit/gram powder 1 applic topical BID Qty: 60 2RF ondansetron 8 mg tablet,disintegrating 8 mg PO Q8H PRN (Reason: nausea and vomiting) 5 Days Qty: 15 0RF (DME) Dexcom G7 Sensor Device See Rx Instructions .MEDSUPPLY Qty: 3 12RF Rx Instructions: Change every 10 days; Use as directed to check blood sugar carvedilol 3.125 mg tablet 3.125 mg PO BID Qty: 60 5RF atorvastatin [Lipitor] 40 mg tablet 40 mg PO DAILY Qty: 30 5RF citalopram 20 mg tablet 20 mg PO QAM Qty: 30 2RF Vraylar 3 mg capsule 3 mg PO BEDTIME Qty: 30 2RF eszopiclone 3 mg tablet 3 mg PO BEDTIME Qty: 30 2RF prazosin 2 mg capsule 4 mg PO BEDTIME Qty: 60 2RF insulin glargine-yfgn 100 unit/mL (3 mL) insulin pen 60 unit SUBCUT .qpm Qty: 15 5RF empagliflozin 25 mg tablet 25 mg PO DAILY Qty: 30 5RF Rx Instructions: on insulin, failed metformin; uncontrolled famotidine 20 mg tablet 20 mg PO DAILY Qty: 30 1RF cholecalciferol (vitamin D3) 50 mcg (2,000 unit) capsule 50 mcg PO DAILY Qty: 30 11RF (DME) Blood Glucose Test Strip See Rx Instructions .MEDSUPPLY Qty: 200 12RF Rx Instructions: Use as directed with glucometer to check blood sugar (DME) Monoject Safety Syringes 6 mL syringe See Rx Instructions .Route Qty: 300 0RF Rx Instructions: Use once a day to inject Lantus. (DME) pen needle, diabetic [Comfort EZ Pen [place]] 32 gauge x 5/32 needle See Rx Instructions .Route Qty: 100 2RF Rx Instructions: Use 3 times a day to inject Novolog (DME) pen needle, diabetic [TechLITE Pen Needle] 31 gauge x 5/16 needle See Rx Instructions .Route Qty: 100 2RF Rx Instructions: As directed gabapentin 300 mg capsule See Rx Instructions .ROUTE .COMPLEX Qty: 120 5RF Dose Instruction: TAKE 1 CAPSULE BY MOUTH THREE TIMES DAILY AT 9 AM, NOON, AND 8 PM Rx Instructions: Take 1 capsule (300mg) by mouth at 9am and 12pm and two capsules (600mg) at bedtime. tizanidine 4 mg tablet 4 mg PO TID PRN (Reason: Muscle Spasm) Qty: 60 2RF (DME) Dexcom G7 Research Quality Assurance Specialist Misc See Rx Instructions .MEDSUPPLY Qty: 1 0RF Rx Instructions: Use as directed for checking blood sugar tramadol 50 mg tablet 50 mg PO TID PRN (Reason: pain) Qty: 90 3RF Hold Instructions: Resume on 03/06/23. omeprazole 40 mg capsule,delayed release(DR/EC) 40 mg PO DAILY Qty: 90 0RF cetirizine 10 mg tablet See Rx Instructions .ROUTE .COMPLEX Qty: 90 0RF Dose Instruction: TAKE 1 TABLET BY MOUTH DAILY AT 9 AM NEEDED FOR ALLERGY SYMPTOMS Rx Instructions: TAKE 1 TABLET BY MOUTH DAILY AT 9 AM NEEDED FOR ALLERGY SYMPTOMS insulin aspart U-100 [Novolog FlexPen U-100 Insulin] 100 unit/mL (3 mL) insulin pen See Rx Instructions .ROUTE .COMPLEX Rx Instructions: TAKE PER SLIDING SCALE 3 TIMES DAILY. ondansetron 4 mg tablet,disintegrating 4 mg PO Q6H PRN (Reason: nausea and vomiting) Qty: 14 0RF Discharge Orders: Discharge ED (Routine); Ordered 03/09/24 Ordered By: Lori Leung Referrals: Mikaela Hernadez MD [Primary Care Provider] - Discharge Diet: Usual diet Discharge Activity: Resume usual activity Patient Instructions: Migraine Headache (ED) Activity Restrictions/Additional Instructions: Thank you for choosing [facility] for your healthcare needs today. Please realize this is an emergency room and that we are providing you with a medical screening exam and this may not be complete and all inclusive of all the testing and or work up that you may need to determine your ailment or severity of your illness. You have been screened and evaluated and felt safe for discharge. Health conditions do change or evolve sometimes and as such it is important that you follow up with your Primary Doctor to be re checked, 3-5 days is a general good time frame for follow up. You are always welcome to return to the ED for re assessment if your symptoms are worsening or you have new concerns Coding Level of Care Code ED Medical Lab Director for [facility]
[2024-03-09] MEDS: sodium chloride 0.9% 1,000 ML 999 ML IV (07:50)
[2024-03-09] MEDS: diphenhydrAMINE 50 mg/mL SDV 1mL IVP (07:52)
[2024-03-09] MEDS: orphenadrine 30 mg/mL Inj 2 mL 60 MG IVP (07:54)
[2024-03-09] MEDS: ondansetron 2 mg/ML SDV 2 mL 8 MG IVP (07:56)
[2024-03-09] MEDS: metoclopramide 5 mg/mL SDV 2 mL 10 MG IVP (07:56)
[2024-03-09] MEDS: ketorolac 30 mg/mL INJ IVP (08:00)
[2024-03-09 09:15] VITALS: BP 102/66; PULSE 63; O2SAT 93
== END 2024-03-09 09:24 | disposition home or self-care (01) ==
PROVIDERS: Emergency Provider Emergency Medicine; PCP Family Medicine
DX: G43.909 Migraine, unspecified, not intractable, without status migrainosus (principal); Z79.4 Long term (current) use of insulin
CPT/HCPCS: 96374; 96375; 99284; J1200; J1885; J2360; J2405; J2765; J7030

== ENCOUNTER 2024-03-24 15:11 | Emergency (ER) | payer MEDICAID, SELFPAY ==
[2023-09-26 14:30] VITALS: BP 113/78; BMI 42.6
[2024-03-24 15:18] VITALS: BP 139/83; PULSE 78; RESP 18; TEMP 36.5; O2SAT 95; BMI 40.8
--- NOTE | 2024-03-24 15:37 | XRR_ITS ---
PROCEDURE INFORMATION: Exam: XR Lumbosacral Spine Exam date and time: 03/24/2024 3:42 PM Age: 43 years old Clinical indication: Pain and injury or trauma; Fall; Blunt trauma (contusions or hematomas); Low back pain; Additional info: Back pain/fall TECHNIQUE: Imaging protocol: Radiologic exam of the lumbosacral spine. Views: 2 or 3 views. COMPARISON: CR XR lumbar spine 2-3V* [id number] 01/02/2024 11:01 AM FINDINGS: Tubes, catheters and devices: Previous gastric lap band as noted with prior exam. Bones/joints: Lumbar vertebral body heights appear maintained. AP view demonstrates slight lumbar dextroscoliosis. Alignment is otherwise unremarkable. No significant spondylolisthesis or subluxation. Disc spaces appear fairly well maintained without significant or prominent narrowing. Mild spondylotic change lower lumbar spine. No fracture or compression deformity is seen. Visualized sacrum and coccyx show no acute abnormality. Soft tissues: No significant paravertebral soft tissue abnormality. Small amount of vascular calcification abdominal aorta. Surgical clips upper pelvis, as noted with prior exam. XR/XR lumbar spine 2-3V* [id number] IMPRESSION: No acute findings.
--- NOTE | 2024-03-24 15:37 | W.ED.BACK ---
HPI - Back Pain/Injury General: Chief Complaint: Back Pain/Injury Stated Complaint: fall Time Seen by Provider: 03/24/24 15:24 Source: patient Mode of arrival: ambulatory Limitations: no limitations History of Present Illness: Patient is a 43-year-old female presents to ED today along with her significant other for evaluation of lower back pain. She states 2 days ago she was getting out of bed when she accidentally tripped over one of her puppies and fell and landed on her lower back. She states she has baseline chronic lower back pain but states that it has been worse since the fall. She has been taking her normal Zanaflex and Tramadol but this is not helping. She does not complain of saddle anesthesia or urinary retention/bowel incontinence. She is ambulatory here. MD elicited complaint: back injury Pertinent past history: recent trauma Onset (ago): day(s) Timing: constant Severity: severe Similar Symptoms Previously: Yes Location: lumbar spine Radiation: none Exacerbating factors: movement, sitting upright, walking and lifting Relieving factors: none Context: fall Associated symptoms: Reports no associated symptoms; Deny dysuria, fever(s), nausea, syncope or vomiting Treatments prior to arrival: prescription analgesics Work related injury: No Related Data Home Medications Medication Instructions Recorded Confirmed insulin aspart U-100 100 unit/mL See Rx Instructions .Route .COMPLEX 09/24/23 02/29/24 (3 mL) subcutaneous pen (Novolog FlexPen U-100 Insulin aspart) Previous Rx's Medication Instructions Recorded diabetic supplies, miscellan. #1 ea 08/22/22 glucometer and strips 100 #1 ea 05/28/23 blood sugar diagnostic (Blood #200 ea 08/09/23 Glucose Test strips) pen needle, diabetic 32 gauge x #100 ea 09/05/23 (Comfort EZ Pen Dumas) syringe with needle 6 mL (Monoject #300 ea 09/05/23 Safety Syringes) nystatin 100,000 unit/gram topical 1 applic topical BID #60 grams 10/04/23 powder pen needle, diabetic 31 gauge x #100 ea 10/25/2310/31 (TechLITE Pen Needle) ondansetron 8 mg disintegrating 8 mg PO Q8H PRN nausea and 10/27/23 tablet vomiting 5 days #15 tabs atorvastatin 40 mg tablet (Lipitor) 40 mg PO DAILY #30 tabs 10/30/23 carvedilol 3.125 mg tablet 3.125 mg PO BID #60 tabs 10/30/23 blood-glucose sensor (Dexcom G7 #3 ea 10/31/23 Sensor device) gabapentin 300 mg capsule See Rx Instructions .Route 11/22/23 .COMPLEX #120 caps insulin glargine 100 unit/mL 50 unit (0.5 mL) SUBCUT BEDTIME 11/28/23 subcutaneous solution (Lantus #10 mL U-100 Insulin) tizanidine 4 mg tablet 4 mg PO TID PRN Muscle Spasm #60 12/19/23 tabs blood-glucose meter,continuous #1 ea 12/27/23 (Dexcom G7 [employer]) ondansetron 4 mg disintegrating 4 mg PO Q6H PRN nausea and 01/17/24 tablet vomiting #14 tabs cariprazine 3 mg capsule (Vraylar) 3 mg PO BEDTIME #30 caps 01/18/24 citalopram 20 mg tablet 20 mg PO QAM #30 tabs 01/18/24 eszopiclone 3 mg tablet 3 mg PO BEDTIME #30 tabs 01/18/24 prazosin 2 mg capsule 4 mg (2 x 2 mg) PO BEDTIME #60 caps 01/18/24 tramadol 50 mg tablet 50 mg PO TID PRN pain #90 tabs 01/22/24 omeprazole 40 mg capsule,delayed 40 mg PO DAILY #90 caps 02/11/24 release cetirizine 10 mg tablet See Rx Instructions .Route 02/19/24 .COMPLEX #90 tabs empagliflozin 25 mg tablet 25 mg PO DAILY #30 tabs 02/29/24 famotidine 20 mg tablet 20 mg PO DAILY #30 tabs 02/29/24 insulin glargine-yfgn 100 unit/mL 60 unit (0.6 mL) SUBCUT .qpm #15 mL 02/29/24 (3 mL) subcutaneous pen cholecalciferol (vitamin D3) 50 50 mcg PO DAILY #30 caps 03/02/24 mcg (2,000 unit) capsule dexamethasone 6 mg tablet 6 mg PO DAILY #6 tabs 03/24/24 diclofenac sodium 50 mg 50 mg PO Q12H PRN pain #14 tabs 03/24/24 tablet,delayed release Allergies Allergy/AdvReac Type Severity Reaction Status Date / Time codeine Allergy Intermediate HALLUCINATI Verified 03/24/24 15:21 ONS latex Allergy Intermediate HIVES Verified 03/24/24 15:21 aspirin Allergy RASH Verified 03/24/24 15:21 oxycodone [From Percocet] Allergy RASH Verified 03/24/24 15:21 topiramate [From Topamax] Allergy RASH Verified 03/24/24 15:21 sumatriptan AdvReac Intermediate SOB; Verified 03/24/24 15:21 WHEEZING; DIZZINESS Review of Systems Const: Denies: fever(s) Card: Denies: chest pain, palpitations, syncope or pre-syncope Resp: Denies: dyspnea GI: Denies: nausea or vomiting : Denies: flank pain, dysuria or vaginal odor Musc: Reports: back pain; Denies: neck pain, extremity pain, extremity swelling, joint pain or joint swelling Skin/Breast: Denies: rash Neuro: Denies: headache(s), numbness in extremities, weakness in extremities or sensory changes PFSH ED PFSH: Medical History HOMER (obstructive sleep apnea) on BIPAP Diabetic neuropathy associated with type 2 diabetes mellitus Uncontrolled type 2 diabetes mellitus with insulin therapy Facet arthritis, degenerative, lumbar spine Atherosclerosis of [place] coronary artery without angina pectoris Insomnia Urolithiasis Morbid obesity Bipolar 2 disorder Post-traumatic stress disorder, chronic Nicotine dependence, cigarettes, uncomplicated Psychiatric care Major depressive disorder without psychotic features Dyslipidemia Low back pain with sciatica Hypothyroidism Surgical History Hx of percutaneous transluminal coronary angioplasty History of total knee arthroplasty Right--has had 2 TKA--first in [facility]--got infected then had another TKA at [facility] Hx laparoscopic cholecystectomy 03/01/23 Dr. Alarcon Hx of colonoscopy 2009 History of hernia repair umbilical and abdominal R side H/O: hysterectomy w/ BSO; had precancerous cells age 14, then had hyst for menometrorrhagia Hx of appendectomy 2005 Hx of laparoscopic gastric banding 2009 Family History Mother CAD (coronary artery disease) Stroke Father CAD (coronary artery disease) Other Cancer Diabetes Hypertension Social History (Reviewed 03/24/24 @ 15:56 by AVINASH Best Smoking and tobacco/nicotine status: current every day tobacco/nicotine user cigarettes Packs smoked per day: 1.5 Years cigarettes smoked: 28 Alcohol intake: never Substance/Drug Use: never Household members: significant other Housing: House Marital status: / Number of children: 0 Current occupational status: employed Current occupation: [employer] and [employer] Female Reproductive History: Spontaneous abortions: No Physical Exam Const: COMMON NORMALS: no acute distress, patient oriented x3, no limitations and alert GENERAL APPEARANCE: cooperative NUTRITIONAL APPEARANCE: obese morbidly obese (BMI 40.9) ORIENTATION/CONSCIOUSNESS: Yes awake, Yes oriented to person, Yes oriented to place and Yes oriented to time HENMT: COMMON NORMALS: normocephalic and atraumatic HEAD & SCALP: normal to inspection, normocephalic and atraumatic Back/Pelvis: THORACIC SPINE/UPPER BACK: No thoracic spinal tenderness and No paraspinal muscle tenderness LUMBAR SPINE/LOWER BACK: Yes lumbar spinal tenderness and No paraspinal muscle tenderness PELVIS: Yes buttocks normal and No sciatic notch tenderness SACROILIAC JOINTS: Yes SI joints normal SACRUM: no tenderness COCCYX: no tenderness Extremity: GENERAL: Yes normal exam except as noted Neuro: COMMON NORMALS: patient oriented x3, moves all extremities, no focal motor deficits and no sensory deficits noted SENSORIUM/ORIENTATION: Yes alert, Yes oriented to person, Yes oriented to place and Yes oriented to time Skin: COMMON NORMALS: no rashes or lesions noted GENERAL SKIN EXAM: no rashes or lesions noted Course Vital Signs: Vital signs: Vital Signs Temperature 97.7 F 03/24/24 15:18 Pulse Rate 78 03/24/24 15:18 Respiratory Rate 18 03/24/24 15:18 Blood Pressure 139/83 03/24/24 15:18 Pulse Oximetry 95 03/24/24 15:18 Oxygen Delivery Me thod Room Air 03/24/24 15:18 MDM - Back Pain/Injury Medical Decision Making I do not visualize any acute fractures on her lumbar XR. She has no acute neurologic deficits. She can continue her muscle relaxer and tramadol. Will place her on steroids as well as an NSAID. She can follow-up with primary care later this week for continued discomfort. Return to ED precautions given. Medical Records I reviewed the patient's medical records. XR interpretation done by ED provider, pending radiology final review Discharge Plan Discharge Patient Disposition: Home Clinical Impression: Injury of low back Qualifiers: Encounter type: initial encounter Qualified Code(s): S39.92XA - Unspecified injury of lower back, initial encounter Condition: Stable Prescriptions: New dexamethasone 6 mg tablet 6 mg PO DAILY Qty: 6 0RF diclofenac sodium 50 mg tablet,delayed release (DR/EC) 50 mg PO Q12H PRN (Reason: pain) Qty: 14 0RF No Action (DME) diabetic supplies, miscellan. Misc See Rx Instructions .ROUTE .MEDSUPPLY Qty: 1 3RF Rx Instructions: Diabetic shoes with 3 pair of inserts (DME) glucometer and strips 100 See Rx Instructions .Route .MEDSUPPLY Qty: 1 11RF Rx Instructions: check her glucose 3 times a day and adjust sliding scale insulin insulin glargine [Lantus U-100 Insulin] 100 unit/mL solution 50 unit SUBCUT BEDTIME Qty: 10 5RF nystatin 100,000 unit/gram powder 1 applic topical BID Qty: 60 2RF ondansetron 8 mg tablet,disintegrating 8 mg PO Q8H PRN (Reason: nausea and vomiting) 5 Days Qty: 15 0RF (DME) Dexcom G7 Sensor Device See Rx Instructions .MEDSUPPLY Qty: 3 12RF Rx Instructions: Change every 10 days; Use as directed to check blood sugar carvedilol 3.125 mg tablet 3.125 mg PO BID Qty: 60 5RF atorvastatin [Lipitor] 40 mg tablet 40 mg PO DAILY Qty: 30 5RF citalopram 20 mg tablet 20 mg PO QAM Qty: 30 2RF Vraylar 3 mg capsule 3 mg PO BEDTIME Qty: 30 2RF eszopiclone 3 mg tablet 3 mg PO BEDTIME Qty: 30 2RF prazosin 2 mg capsule 4 mg PO BEDTIME Qty: 60 2RF insulin glargine-yfgn 100 unit/mL (3 mL) insulin pen 60 unit SUBCUT .qpm Qty: 15 5RF empagliflozin 25 mg tablet 25 mg PO DAILY Qty: 30 5RF Rx Instructions: on insulin, failed metformin; uncontrolled famotidine 20 mg tablet 20 mg PO DAILY Qty: 30 1RF cholecalciferol (vitamin D3) 50 mcg (2,000 unit) capsule 50 mcg PO DAILY Qty: 30 11RF (DME) Blood Glucose Test Strip See Rx Instructions .MEDSUPPLY Qty: 200 12RF Rx Instructions: Use as directed with glucometer to check blood sugar (DME) Monoject Safety Syringes 6 mL syringe See Rx Instructions .Route Qty: 300 0RF Rx Instructions: Use once a day to inject Lantus. (DME) pen needle, diabetic [Comfort EZ Pen Dumas] 32 gauge x 5/32 needle See Rx Instructions .Route Qty: 100 2RF Rx Instructions: Use 3 times a day to inject Novolog (DME) pen needle, diabetic [TechLITE Pen Needle] 31 gauge x 5/16 needle See Rx Instructions .Route Qty: 100 2RF Rx Instructions: As directed gabapentin 300 mg capsule See Rx Instructions .ROUTE .COMPLEX Qty: 120 5RF Dose Instruction: TAKE 1 CAPSULE BY MOUTH THREE TIMES DAILY AT 9 AM, NOON, AND 8 PM Rx Instructions: Take 1 capsule (300mg) by mouth at 9am and 12pm and two capsules (600mg) at bedtime. tizanidine 4 mg tablet 4 mg PO TID PRN (Reason: Muscle Spasm) Qty: 60 2RF (DME) Dexcom G7 [employer] Misc See Rx Instructions .MEDSUPPLY Qty: 1 0RF Rx Instructions: Use as directed for checking blood sugar tramadol 50 mg tablet 50 mg PO TID PRN (Reason: pain) Qty: 90 3RF Hold Instructions: Resume on 03/06/23. omeprazole 40 mg capsule,delayed release(DR/EC) 40 mg PO DAILY Qty: 90 0RF cetirizine 10 mg tablet See Rx Instructions .ROUTE .COMPLEX Qty: 90 0RF Dose Instruction: TAKE 1 TABLET BY MOUTH DAILY AT 9 AM NEEDED FOR ALLERGY SYMPTOMS Rx Instructions: TAKE 1 TABLET BY MOUTH DAILY AT 9 AM NEEDED FOR ALLERGY SYMPTOMS insulin aspart U-100 [Novolog FlexPen U-100 Insulin] 100 unit/mL (3 mL) insulin pen See Rx Instructions .ROUTE .COMPLEX Rx Instructions: TAKE PER SLIDING SCALE 3 TIMES DAILY. ondansetron 4 mg tablet,disintegrating 4 mg PO Q6H PRN (Reason: nausea and vomiting) Qty: 14 0RF Discharge Orders: Discharge ED (Routine); Ordered 03/24/24 Ordered By: Idalmis Gilbert Referrals: Mikaela Hernadez MD [Primary Care Provider] - Activity Restrictions/Additional Instructions: As we discussed, you can continue your Zanaflex and Tramadol in addition to the medications prescribed to you today. Please follow-up with your primary care provider later this week for reevaluation of symptoms do not seem to be improving. You may return to the emergency department for severe worsening back pain, trouble ambulating, numbness to your legs, trouble urinating or fecal incontinence, or any other concerns you may have. Coding Level of Care Code ED [employer] Specialist for Alcides Biggs
[2024-03-24] MEDS: ketorolac 60 mg/2 mL INJ IM (16:07)
[2024-03-24] MEDS: morphine 4 mg/mL SDV 1 mL IM (16:07)
[2024-03-24] MEDS: dexamethasone 10 mg/mL INJ IM (16:08)
[2024-03-24 17:10] VITALS: BP 131/84; PULSE 69; RESP 16; O2SAT 97
== END 2024-03-24 17:10 | disposition home or self-care (01) ==
PROVIDERS: Emergency Provider Physician Assistant; PCP Family Medicine
DX: S39.92XA Unspecified injury of lower back, initial encounter (principal); Z79.4 Long term (current) use of insulin; F17.210 Nicotine dependence, cigarettes, uncomplicated; Z98.61 Coronary angioplasty status; E11.40 Type 2 diabetes mellitus with diabetic neuropathy, unspecified; E78.5 Hyperlipidemia, unspecified; W01.0XXA Fall on same level from slipping, tripping and stumbling without subsequent striking against object, initial encounter
CPT/HCPCS: 72100; 96372; 99284; J1100; J1885; J2270

== ENCOUNTER 2024-04-02 15:21 | Emergency (ER) | payer MEDICAID, SELFPAY ==
[2023-09-26 14:30] VITALS: BP 113/78; BMI 42.6
[2024-04-02 15:26] VITALS: BP 125/86; PULSE 87; RESP 16; TEMP 36.6; O2SAT 95; BMI 40.8
--- NOTE | 2024-04-02 16:08 | W.ED.GENADLT ---
HPI - General Adult General: Chief complaint: General Medical Stated complaint: heartburn and copper taste in mouth Time Seen by Provider: 04/02/24 15:42 History of Present Illness: 43-year-old female who presents emergency room complaining of heartburn and reflux symptoms last week and a half she has been using omeprazole with only minimal relief of symptoms. She contacted her doctor today she told her that she had a metallic taste in her mouth and she was directed to the emergency room. She denies any medic easy melena hematemesis coffee-ground emesis no chest pain or shortness of breath Associated symptoms: Deny chest pain, dyspnea, nausea, rash or vomiting Related Data Home Medications Medication Instructions Recorded Confirmed insulin aspart U-100 100 unit/mL See Rx Instructions .Route .COMPLEX 09/24/23 03/26/24 (3 mL) subcutaneous pen (Novolog FlexPen U-100 Insulin aspart) Previous Rx's Medication Instructions Recorded diabetic supplies, miscellan. #1 ea 08/22/22 glucometer and strips 100 #1 ea 05/28/23 blood sugar diagnostic (Blood #200 ea 08/09/23 Glucose Test strips) pen needle, diabetic 32 gauge x #100 ea 09/05/23 (Comfort EZ Pen [place]) syringe with needle 6 mL (Monoject #300 ea 09/05/23 Safety Syringes) nystatin 100,000 unit/gram topical 1 applic topical BID #60 grams 10/04/23 powder pen needle, diabetic 31 gauge x #100 ea 10/25/2310/31 (TechLITE Pen Needle) ondansetron 8 mg disintegrating 8 mg PO Q8H PRN nausea and 10/27/23 tablet vomiting 5 days #15 tabs carvedilol 3.125 mg tablet 3.125 mg PO BID #60 tabs 10/30/23 blood-glucose sensor (Dexcom G7 #3 ea 10/31/23 Sensor device) gabapentin 300 mg capsule See Rx Instructions .Route 11/22/23 .COMPLEX #120 caps tizanidine 4 mg tablet 4 mg PO TID PRN Muscle Spasm #60 12/19/23 tabs blood-glucose meter,continuous #1 ea 12/27/23 (Dexcom G7 Rotary Swaging Machine Operator) ondansetron 4 mg disintegrating 4 mg PO Q6H PRN nausea and 01/17/24 tablet vomiting #14 tabs cariprazine 3 mg capsule (Vraylar) 3 mg PO BEDTIME #30 caps 01/18/24 citalopram 20 mg tablet 20 mg PO QAM #30 tabs 01/18/24 eszopiclone 3 mg tablet 3 mg PO BEDTIME #30 tabs 01/18/24 prazosin 2 mg capsule 4 mg (2 x 2 mg) PO BEDTIME #60 caps 01/18/24 tramadol 50 mg tablet 50 mg PO TID PRN pain #90 tabs 01/22/24 omeprazole 40 mg capsule,delayed 40 mg PO DAILY #90 caps 02/11/24 release cetirizine 10 mg tablet See Rx Instructions .Route 02/19/24 .COMPLEX #90 tabs empagliflozin 25 mg tablet 25 mg PO DAILY #30 tabs 02/29/24 famotidine 20 mg tablet 20 mg PO DAILY #30 tabs 02/29/24 insulin glargine-yfgn 100 unit/mL 60 unit (0.6 mL) SUBCUT .qpm #15 mL 02/29/24 (3 mL) subcutaneous pen cholecalciferol (vitamin D3) 50 50 mcg PO DAILY #30 caps 03/02/24 mcg (2,000 unit) capsule diclofenac sodium 50 mg 50 mg PO Q12H PRN pain #14 tabs 03/24/24 tablet,delayed release insulin glargine 100 unit/mL (3 60 unit (0.6 mL) SUBCUT QAM #45 mL 03/26/24 mL) subcutaneous pen (Lantus Solostar U-100 Insulin) atorvastatin 40 mg tablet (Lipitor) 40 mg PO DAILY #90 tabs 03/27/24 Allergies Allergy/AdvReac Type Severity Reaction Status Date / Time codeine Allergy Intermediate HALLUCINATI Verified 03/26/24 11:31 ONS latex Allergy Intermediate HIVES Verified 03/26/24 11:31 aspirin Allergy RASH Verified 03/26/24 11:31 oxycodone [From Percocet] Allergy RASH Verified 03/26/24 11:31 topiramate [From Topamax] Allergy RASH Verified 03/26/24 11:31 sumatriptan AdvReac Intermediate SOB; Verified 03/26/24 11:31 WHEEZING; DIZZINESS Review of Systems Const: Denies: fever(s) or chills Card: Denies: chest pain Resp: Denies: dyspnea GI: Reports: heartburn; Denies: abdominal pain, nausea, vomiting, hematemesis or hematochezia : Denies: dysuria, urinary frequency or urinary urgency Musc: Denies: neck pain or back pain Skin/Breast: Denies: rash PFSH ED PFSH: Medical History Pain management contract signed tramadol; 03.26.24 HOMER (obstructive sleep apnea) on BIPAP Diabetic neuropathy associated with type 2 diabetes mellitus Uncontrolled type 2 diabetes mellitus with insulin therapy Facet arthritis, degenerative, lumbar spine Atherosclerosis of [place] coronary artery without angina pectoris Insomnia Urolithiasis Morbid obesity Bipolar 2 disorder Post-traumatic stress disorder, chronic Nicotine dependence, cigarettes, uncomplicated Psychiatric care Major depressive disorder without psychotic features Dyslipidemia Low back pain with sciatica Hypothyroidism Surgical History Hx of percutaneous transluminal coronary angioplasty History of total knee arthroplasty Right--has had 2 TKA--first in [place]--got infected then had another TKA at [facility] Hx laparoscopic cholecystectomy 03/01/23 Dr. Alarcon Hx of colonoscopy 2009 History of hernia repair umbilical and abdominal R side H/O: hysterectomy w/ BSO; had precancerous cells age 14, then had hyst for menometrorrhagia Hx of appendectomy 2005 Hx of laparoscopic gastric banding 2009 Family History Mother CAD (coronary artery disease) Stroke Father CAD (coronary artery disease) Other Cancer Diabetes Hypertension Social History Smoking and tobacco/nicotine status: current every day tobacco/nicotine user cigarettes Packs smoked per day: 1.5 Years cigarettes smoked: 28 Alcohol intake: never Substance/Drug Use: never Household members: significant other Housing: House Marital status: / Number of children: 0 Current occupational status: employed Current occupation: [employer] Female Reproductive History: Spontaneous abortions: No Physical Exam Const: COMMON NORMALS: no acute distress GENERAL APPEARANCE: cooperative and comfortable ORIENTATION/CONSCIOUSNESS: Yes awake, Yes oriented to person, Yes oriented to place and Yes oriented to time HENMT: COMMON NORMALS: normocephalic, atraumatic and hearing grossly normal bilaterally HEAD & SCALP: normocephalic and atraumatic Resp: COMMON NORMALS: normal respiratory effort, No retractions, No use of accessory muscles and clear to auscultation bilaterally AUSCULTATION: clear to auscultation bilaterally Cardio: COMMON NORMALS: regular rate, regular rhythm and No murmurs present (Cardio) RATE: regular rate RHYTHM: regular rhythm GI: COMMON NORMALS: Soft to palpation and No hepatosplenomegaly present AUSCULTATION: Yes normoactive bowel sounds PALPATION: Yes Soft to palpation, No Tenderness to palpation present (GI), No Guarding due to palpation present (GI) and Yes No hepatosplenomegaly present Extremity: COMMON NORMALS: normal to inspection, capillary refill normal, no clubbing, cyanosis or edema, no calf tenderness and no pedal edema Neuro: SENSORIUM/ORIENTATION: Yes oriented to person, Yes oriented to place and Yes oriented to time Skin: COMMON NORMALS: no rashes or lesions noted GENERAL SKIN EXAM: no rashes or lesions noted Course Vital Signs: Vital signs: Vital Signs Temperature 97.8 F 04/02/24 15:26 Pulse Rate 88 04/02/24 16:33 Respiratory Rate 16 04/02/24 15:26 Blood Pressure 146/78 04/02/24 16:33 Pulse Oximetry 98 04/02/24 16:33 Oxygen Delivery Me thod Room Air 04/02/24 15:26 MDM - General Adult Medical Decision Making Exam unremarkable. No signs of acute GI bleed. Will discharge patient home have her follow-up with primary care. Lab Data 04/02/24 16:56 04/02/24 16:56 Laboratory Results WBC 11.03 10^3/uL (3.29-11.43) 04/02/24 16:56 RBC 5.72 10^6/uL (3.85-5.65) H 04/02/24 16:56 Hgb 16.40 g/dL (11.27-16.99) 04/02/24 16:56 Hct 51.2 % (36-47) H 04/02/24 16:56 MCV 89.5 fl (85-98) 04/02/24 16:56 MCH 28.7 pg (27-33) 04/02/24 16:56 MCHC 32.0 g/dL (30-55) 04/02/24 16:56 RDW 13.2 % (12.1-15.1) 04/02/24 16:56 Plt Count 197 10^3/cmm (157-399) 04/02/24 16:56 MPV 13.3 fL (7.4-10.4) H 04/02/24 16:56 Neut % (Auto) 62.2 % 04/02/24 16:56 Lymph % (Auto) 26.4 % 04/02/24 16:56 [place] % (Auto) 6.7 % 04/02/24 16:56 Eos % (Auto) 3.4 % 04/02/24 16:56 Baso % (Auto) 0.8 % 04/02/24 16:56 Neut # (Auto) 6.87 10^3/uL (1.8-7.7) 04/02/24 16:56 Lymph # (Auto) 2.9 10^3/uL (0.8-4.8) 04/02/24 16:56 [place] # (Auto) 0.7 10^3/uL (0.2-0.9) 04/02/24 16:56 Eos # (Auto) 0.4 10^3/uL (0.0-0.8) 04/02/24 16:56 Baso # (Auto) 0.1 10^3/uL (0.0-0.1) 04/02/24 16:56 Nucleated RBC % (auto) 0 % 04/02/24 16:56 Nucleated RBCs # 0.0 /100WBC 04/02/24 16:56 Sodium 136 mmol/L (136-145) 04/02/24 16:56 Potassium 4.2 mmol/L (3.5-5.1) 04/02/24 16:56 Chloride 101 mmol/L (98-107) 04/02/24 16:56 Carbon Dioxide 26 mmol/L (22-29) 04/02/24 16:56 Anion Gap 13.2 (5-19) 04/02/24 16:56 BUN 10 mg/dL (6-20) 04/02/24 16:56 Creatinine 0.6 mg/dL (0.5-0.9) 04/02/24 16:56 GFR Calculation 108.1 mL/min (90-130) 04/02/24 16:56 Glucose 396 mg/dL (65-115) H 04/02/24 16:56 Calculated Osmolality 298 mOsm/kg (285-295) H 04/02/24 16:56 Calcium 9.1 mg/dL (8.5-10.5) 04/02/24 16:56 Total Bilirubin 0.3 mg/dL (0.15-1.2) 04/02/24 16:56 AST 13 U/L (0-32) 04/02/24 16:56 ALT 25 U/L (0-33) 04/02/24 16:56 Alkaline Phosphatase 138 U/L (35-105) H 04/02/24 16:56 Total Protein 7.0 g/dL (6.6-8.7) 04/02/24 16:56 Albumin 4.2 g/dL (3.5-5.2) 04/02/24 16:56 Globulin 2.8 g/dL (1.3-4.6) 04/02/24 16:56 All radiology interpretation(s) finalized by discharge Discharge Plan Discharge Patient Disposition: Home Clinical Impression: GERD without esophagitis Condition: Stable Prescriptions: No Action (DME) diabetic supplies, miscellan. Misc See Rx Instructions .ROUTE .MEDSUPPLY Qty: 1 3RF Rx Instructions: Diabetic shoes with 3 pair of inserts (DME) glucometer and strips 100 See Rx Instructions .Route .MEDSUPPLY Qty: 1 11RF Rx Instructions: check her glucose 3 times a day and adjust sliding scale insulin nystatin 100,000 unit/gram powder 1 applic topical BID Qty: 60 2RF ondansetron 8 mg tablet,disintegrating 8 mg PO Q8H PRN (Reason: nausea and vomiting) 5 Days Qty: 15 0RF (DME) Dexcom G7 Sensor Device See Rx Instructions .MEDSUPPLY Qty: 3 12RF Rx Instructions: Change every 10 days; Use as directed to check blood sugar carvedilol 3.125 mg tablet 3.125 mg PO BID Qty: 60 5RF citalopram 20 mg tablet 20 mg PO QAM Qty: 30 2RF Vraylar 3 mg capsule 3 mg PO BEDTIME Qty: 30 2RF eszopiclone 3 mg tablet 3 mg PO BEDTIME Qty: 30 2RF prazosin 2 mg capsule 4 mg PO BEDTIME Qty: 60 2RF insulin glargine-yfgn 100 unit/mL (3 mL) insulin pen 60 unit SUBCUT .qpm Qty: 15 5RF empagliflozin 25 mg tablet 25 mg PO DAILY Qty: 30 5RF Rx Instructions: on insulin, failed metformin; uncontrolled famotidine 20 mg tablet 20 mg PO DAILY Qty: 30 1RF cholecalciferol (vitamin D3) 50 mcg (2,000 unit) capsule 50 mcg PO DAILY Qty: 30 11RF insulin glargine [Lantus Solostar U-100 Insulin] 100 unit/mL (3 mL) insulin pen 60 unit SUBCUT QAM Qty: 45 0RF (DME) Blood Glucose Test Strip See Rx Instructions .MEDSUPPLY Qty: 200 12RF Rx Instructions: Use as directed with glucometer to check blood sugar (DME) Monoject Safety Syringes 6 mL syringe See Rx Instructions .Route Qty: 300 0RF Rx Instructions: Use once a day to inject Lantus. (DME) pen needle, diabetic [Comfort EZ Pen [place]] 32 gauge x 5/32 needle See Rx Instructions .Route Qty: 100 2RF Rx Instructions: Use 3 times a day to inject Novolog (DME) pen needle, diabetic [TechLITE Pen Needle] 31 gauge x 5/16 needle See Rx Instructions .Route Qty: 100 2RF Rx Instructions: As directed gabapentin 300 mg capsule See Rx Instructions .ROUTE .COMPLEX Qty: 120 5RF Dose Instruction: TAKE 1 CAPSULE BY MOUTH THREE TIMES DAILY AT 9 AM, NOON, AND 8 PM Rx Instructions: Take 1 capsule (300mg) by mouth at 9am and 12pm and two capsules (600mg) at bedtime. tizanidine 4 mg tablet 4 mg PO TID PRN (Reason: Muscle Spasm) Qty: 60 2RF (DME) Dexcom G7 Rotary Swaging Machine Operator Misc See Rx Instructions .MEDSUPPLY Qty: 1 0RF Rx Instructions: Use as directed for checking blood sugar tramadol 50 mg tablet 50 mg PO TID PRN (Reason: pain) Qty: 90 3RF Hold Instructions: Resume on 03/06/23. omeprazole 40 mg capsule,delayed release(DR/EC) 40 mg PO DAILY Qty: 90 0RF cetirizine 10 mg tablet See Rx Instructions .ROUTE .COMPLEX Qty: 90 0RF Dose Instruction: TAKE 1 TABLET BY MOUTH DAILY AT 9 AM NEEDED FOR ALLERGY SYMPTOMS Rx Instructions: TAKE 1 TABLET BY MOUTH DAILY AT 9 AM NEEDED FOR ALLERGY SYMPTOMS atorvastatin [Lipitor] 40 mg tablet 40 mg PO DAILY Qty: 90 2RF insulin aspart U-100 [Novolog FlexPen U-100 Insulin] 100 unit/mL (3 mL) insulin pen See Rx Instructions .ROUTE .COMPLEX Rx Instructions: TAKE PER SLIDING SCALE 3 TIMES DAILY. diclofenac sodium 50 mg tablet,delayed release (DR/EC) 50 mg PO Q12H PRN (Reason: pain) Qty: 14 0RF ondansetron 4 mg tablet,disintegrating 4 mg PO Q6H PRN (Reason: nausea and vomiting) Qty: 14 0RF Discharge Orders: Discharge ED (Routine); Ordered 04/02/24 Ordered By: Tong Owens Referrals: Mikaela Hernadez MD [Primary Care Provider] - Patient Instructions: Opioid Safety, Pain Management Activity Restrictions/Additional Instructions: Thank you for choosing [facility] for your healthcare needs today. It is very important that you follow up as instructed or that you return to the Emergency Department should you have concerns or if your condition changes or worsens in any way. Continue current medications no changes follow-up with your primary care doctor as needed. Coding Level of Care Code ED Fruit Worker for Alcides Biggs
[2024-04-02 16:33] VITALS: BP 146/78; PULSE 88; O2SAT 98
[2024-04-02 17:21] LABS: Basophils # 0.1 10^3/uL (0.0-0.1); Basophils % 0.8 %; Eosinophils # 0.4 10^3/uL (0.0-0.8); Eosinophils % 3.4 %; Hematocrit 51.2 % (36-47); Lymphocytes # 2.9 10^3/uL (0.8-4.8); Lymphocytes % 26.4 %; Mean Corpuscular Hemoglobin 28.7 pg (27-33); Mean Corpuscular Volume 89.5 fl (85-98); Mean Platelet Volume 13.3 fL (7.4-10.4); Monocytes # 0.7 10^3/uL (0.2-0.9); Monocytes % 6.7 %; Neutrophils # 6.87 10^3/uL (1.8-7.7); Neutrophils % 62.2 %; Nucleated Red Blood Cells % 0 %; Platelet Count 197 10^3/cmm (157-399); Red Blood Count 5.72 10^6/uL (3.85-5.65); Red Cell Distribution Width 13.2 % (12.1-15.1); White Blood Count 11.03 10^3/uL (3.29-11.43)
[2024-04-02 17:34] LABS: Slide Review Slide Review Perform
[2024-04-02 17:40] LABS: Alanine Aminotransferase 25 U/L (0-33); Albumin Level 4.2 g/dL (3.5-5.2); Alkaline Phosphatase 138 U/L (35-105); Anion Gap 13.2 (5-19); Aspartate Amino Transferase 13 U/L (0-32); Blood Urea Nitrogen 10 mg/dL (6-20); Calcium 9.1 mg/dL (8.5-10.5); Carbon Dioxide 26 mmol/L (22-29); Chloride 101 mmol/L (98-107); Creatinine Clr Calc Pharmacy 142.0639; Globulin 2.8 g/dL (1.3-4.6); Glomerular Filtration Rate 108.1 mL/min (90-130); Glucose 396 mg/dL (65-115); Osmolality Calculated 298 mOsm/kg (285-295); Potassium 4.2 mmol/L (3.5-5.1); Sodium 136 mmol/L (136-145); Total Bilirubin 0.3 mg/dL (0.15-1.2)
[2024-04-02 17:58] VITALS: BP 169/100; PULSE 69; O2SAT 98
== END 2024-04-02 18:00 | disposition home or self-care (01) ==
PROVIDERS: Emergency Provider Family Medicine; PCP Family Medicine
DX: K21.9 Gastro-esophageal reflux disease without esophagitis (principal); E11.40 Type 2 diabetes mellitus with diabetic neuropathy, unspecified; Z79.4 Long term (current) use of insulin; Z79.02 Long term (current) use of antithrombotics/antiplatelets; F17.210 Nicotine dependence, cigarettes, uncomplicated; I25.10 Atherosclerotic heart disease of native coronary artery without angina pectoris; E78.5 Hyperlipidemia, unspecified; Z98.61 Coronary angioplasty status
CPT/HCPCS: 36415; 80053; 85025; 99283

== ENCOUNTER 2024-04-13 08:44 | Emergency (ER) | payer MEDICAID, SELFPAY ==
[2023-09-26 14:30] VITALS: BP 113/78; BMI 42.6
[2024-04-13 09:03] VITALS: BP 116/67; PULSE 71; RESP 18; TEMP 36.7; O2SAT 93; BMI 41.0
--- NOTE | 2024-04-13 09:07 | ED_ITS ---
HPI - General Adult General: Chief complaint: Skin/Abscess/Foreign Body Stated complaint: blisters on hands and feet Time Seen by Provider: 04/13/24 09:02 History of Present Illness: Patient presents to the ER with complaints of blisters on her hands feet and mouth. Is been going on for couple days. Patient is around children. Patient has never had this before. Patient denies any nausea vomiting fevers chills cough cold sore throats etc. Related Data Home Medications Medication Instructions Recorded Confirmed insulin aspart U-100 100 unit/mL See Rx Instructions .Route .COMPLEX 09/24/23 03/26/24 (3 mL) subcutaneous pen (Novolog FlexPen U-100 Insulin aspart) Previous Rx's Medication Instructions Recorded diabetic supplies, miscellan. #1 ea 08/22/22 glucometer and strips 100 #1 ea 05/28/23 blood sugar diagnostic (Blood #200 ea 08/09/23 Glucose Test strips) pen needle, diabetic 32 gauge x #100 ea 09/05/23 5/32 (Comfort EZ Pen [place]) syringe with needle 6 mL (Monoject #300 ea 09/05/23 Safety Syringes) nystatin 100,000 unit/gram topical 1 applic topical BID #60 grams 10/04/23 powder pen needle, diabetic 31 gauge x #100 ea 10/25/23/16 (TechLITE Pen Needle) ondansetron 8 mg disintegrating 8 mg PO Q8H PRN nausea and 10/27/23 tablet vomiting 5 days #15 tabs carvedilol 3.125 mg tablet 3.125 mg PO BID #60 tabs 10/30/23 blood-glucose sensor (Dexcom G7 #3 ea 10/31/23 Sensor device) gabapentin 300 mg capsule See Rx Instructions .Route 11/22/23 .COMPLEX #120 caps tizanidine 4 mg tablet 4 mg PO TID PRN Muscle Spasm #60 12/19/23 tabs blood-glucose meter,continuous #1 ea 12/27/23 (Dexcom G7 Software Quality Analyst) ondansetron 4 mg disintegrating 4 mg PO Q6H PRN nausea and 01/17/24 tablet vomiting #14 tabs cariprazine 3 mg capsule (Vraylar) 3 mg PO BEDTIME #30 caps 01/18/24 citalopram 20 mg tablet 20 mg PO QAM #30 tabs 01/18/24 eszopiclone 3 mg tablet 3 mg PO BEDTIME #30 tabs 01/18/24 prazosin 2 mg capsule 4 mg (2 x 2 mg) PO BEDTIME #60 caps 01/18/24 tramadol 50 mg tablet 50 mg PO TID PRN pain #90 tabs 01/22/24 omeprazole 40 mg capsule,delayed 40 mg PO DAILY #90 caps 02/11/24 release cetirizine 10 mg tablet See Rx Instructions .Route 02/19/24 .COMPLEX #90 tabs empagliflozin 25 mg tablet 25 mg PO DAILY #30 tabs 02/29/24 famotidine 20 mg tablet 20 mg PO DAILY #30 tabs 02/29/24 insulin glargine-yfgn 100 unit/mL 60 unit (0.6 mL) SUBCUT .qpm #15 mL 02/29/24 (3 mL) subcutaneous pen cholecalciferol (vitamin D3) 50 50 mcg PO DAILY #30 caps 03/02/24 mcg (2,000 unit) capsule diclofenac sodium 50 mg 50 mg PO Q12H PRN pain #14 tabs 03/24/24 tablet,delayed release insulin glargine 100 unit/mL (3 60 unit (0.6 mL) SUBCUT QAM #45 mL 03/26/24 mL) subcutaneous pen (Lantus Solostar U-100 Insulin) atorvastatin 40 mg tablet (Lipitor) 40 mg PO DAILY #90 tabs 04/04/24 CPAP supplies #1 ea 04/07/24 Allergies Allergy/AdvReac Type Severity Reaction Status Date / Time codeine Allergy Intermediate HALLUCINATI Verified 03/26/24 11:31 ONS latex Allergy Intermediate HIVES Verified 03/26/24 11:31 aspirin Allergy RASH Verified 03/26/24 11:31 oxycodone [From Percocet] Allergy RASH Verified 03/26/24 11:31 topiramate [From Topamax] Allergy RASH Verified 03/26/24 11:31 sumatriptan AdvReac Intermediate SOB; Verified 03/26/24 11:31 WHEEZING; DIZZINESS Review of Systems General: Reports: 10 or more systems reviewed and unremarkable except in HPI and below PFSH ED PFSH: Medical History Pain management contract signed tramadol; 10.9.24 HOMER (obstructive sleep apnea) on BIPAP Diabetic neuropathy associated with type 2 diabetes mellitus Uncontrolled type 2 diabetes mellitus with insulin therapy Facet arthritis, degenerative, lumbar spine Atherosclerosis of [place] coronary artery without angina pectoris Insomnia Urolithiasis Morbid obesity Bipolar 2 disorder Post-traumatic stress disorder, chronic Nicotine dependence, cigarettes, uncomplicated Psychiatric care Major depressive disorder without psychotic features Dyslipidemia Low back pain with sciatica Hypothyroidism Surgical History Hx of percutaneous transluminal coronary angioplasty History of total knee arthroplasty Right--has had 2 TKA--first in [place]--got infected then had another TKA at [facility] Hx laparoscopic cholecystectomy 03/01/23 Dr. Alarcon Hx of colonoscopy 2009 History of hernia repair umbilical and abdominal R side H/O: hysterectomy w/ BSO; had precancerous cells age 14, then had hyst for menometrorrhagia Hx of appendectomy 2005 Hx of laparoscopic gastric banding 2009 Family History Mother CAD (coronary artery disease) Stroke Father CAD (coronary artery disease) Other Cancer Diabetes Hypertension Social History Smoking and tobacco/nicotine status: current every day tobacco/nicotine user cigarettes Packs smoked per day: 1.5 Years cigarettes smoked: 28 Alcohol intake: never Substance/Drug Use: never Household members: significant other Housing: House Marital status: / Number of children: 0 Current occupational status: employed Current occupation: [employer] Female Reproductive History: Spontaneous abortions: No Physical Exam Const: COMMON NORMALS: no acute distress, average body habitus, patient oriented x3, no limitations, healthy appearing, alert and well nourished HENMT: COMMON NORMALS: normocephalic, atraumatic, hearing grossly normal bilaterally, external ears normal, Normal external nose present and moist oral mucous membranes HEAD & SCALP: normocephalic and atraumatic NOSE: Normal external nose present EXTERNAL EAR: Yes external ears normal Neck/C-Spine: COMMON NORMALS: no JVD Chest: COMMONS NORMALS: normal inspection of the chest and normal palpation of entire chest wall Resp: COMMON NORMALS: normal respiratory effort, No retractions, No use of accessory muscles and clear to auscultation bilaterally AUSCULTATION: clear to auscultation bilaterally Cardio: COMMON NORMALS: no JVD, regular rate, regular rhythm, S1 normal heart sound present, S2 normal heart sound present, No gallops present (Cardio), No clicks present (Cardio), No murmurs present (Cardio) and No rub (Cardio) RATE: regular rate RHYTHM: regular rhythm HEART SOUNDS: S1 normal heart sound present and S2 normal heart sound present Neuro: COMMON NORMALS: patient oriented x3 SENSORIUM/ORIENTATION: Yes alert Skin: NARRATIVE SKIN EXAM: Multiple small blisters on hands feet and mouth MDM - General Adult Medical Decision Making Patient has clinical ychv-ushv-ewx-mouth disease. Patient be discharged home. Medical Records I reviewed the patient's medical records. Lab Data I reviewed the patient's lab results. No radiology studies performed this visit Discharge Plan Discharge Patient Disposition: Home Clinical Impression: Hand, foot and mouth disease (HFMD) Condition: Stable Prescriptions: No Action (DME) diabetic supplies, miscellan. Misc See Rx Instructions .ROUTE .MEDSUPPLY Qty: 1 3RF Rx Instructions: Diabetic shoes with 3 pair of inserts (DME) glucometer and strips 100 See Rx Instructions .Route .MEDSUPPLY Qty: 1 11RF Rx Instructions: check her glucose 3 times a day and adjust sliding scale insulin nystatin 100,000 unit/gram powder 1 applic topical BID Qty: 60 2RF ondansetron 8 mg tablet,disintegrating 8 mg PO Q8H PRN (Reason: nausea and vomiting) 5 Days Qty: 15 0RF (DME) Dexcom G7 Sensor Device See Rx Instructions .MEDSUPPLY Qty: 3 12RF Rx Instructions: Change every 10 days; Use as directed to check blood sugar carvedilol 3.125 mg tablet 3.125 mg PO BID Qty: 60 5RF citalopram 20 mg tablet 20 mg PO QAM Qty: 30 2RF Vraylar 3 mg capsule 3 mg PO BEDTIME Qty: 30 2RF eszopiclone 3 mg tablet 3 mg PO BEDTIME Qty: 30 2RF prazosin 2 mg capsule 4 mg PO BEDTIME Qty: 60 2RF insulin glargine-yfgn 100 unit/mL (3 mL) insulin pen 60 unit SUBCUT .qpm Qty: 15 5RF empagliflozin 25 mg tablet 25 mg PO DAILY Qty: 30 5RF Rx Instructions: on insulin, failed metformin; uncontrolled famotidine 20 mg tablet 20 mg PO DAILY Qty: 30 1RF cholecalciferol (vitamin D3) 50 mcg (2,000 unit) capsule 50 mcg PO DAILY Qty: 30 11RF insulin glargine [Lantus Solostar U-100 Insulin] 100 unit/mL (3 mL) insulin pen 60 unit SUBCUT QAM Qty: 45 0RF (DME) Blood Glucose Test Strip See Rx Instructions .MEDSUPPLY Qty: 200 12RF Rx Instructions: Use as directed with glucometer to check blood sugar (DME) Monoject Safety Syringes 6 mL syringe See Rx Instructions .Route Qty: 300 0RF Rx Instructions: Use once a day to inject Lantus. (DME) pen needle, diabetic [Comfort EZ Pen [place]] 32 gauge x 5/32 needle See Rx Instructions .Route Qty: 100 2RF Rx Instructions: Use 3 times a day to inject Novolog (DME) pen needle, diabetic [TechLITE Pen Needle] 31 gauge x 5/16 needle See Rx Instructions .Route Qty: 100 2RF Rx Instructions: As directed gabapentin 300 mg capsule See Rx Instructions .ROUTE .COMPLEX Qty: 120 5RF Dose Instruction: TAKE 1 CAPSULE BY MOUTH THREE TIMES DAILY AT 9 AM, NOON, AND 8 PM Rx Instructions: Take 1 capsule (300mg) by mouth at 9am and 12pm and two capsules (600mg) at bedtime. tizanidine 4 mg tablet 4 mg PO TID PRN (Reason: Muscle Spasm) Qty: 60 2RF (DME) Dexcom G7 Software Quality Analyst Misc See Rx Instructions .MEDSUPPLY Qty: 1 0RF Rx Instructions: Use as directed for checking blood sugar tramadol 50 mg tablet 50 mg PO TID PRN (Reason: pain) Qty: 90 3RF Hold Instructions: Resume on 03/06/23. omeprazole 40 mg capsule,delayed release(DR/EC) 40 mg PO DAILY Qty: 90 0RF cetirizine 10 mg tablet See Rx Instructions .ROUTE .COMPLEX Qty: 90 0RF Dose Instruction: TAKE 1 TABLET BY MOUTH DAILY AT 9 AM NEEDED FOR ALLERGY SYMPTOMS Rx Instructions: TAKE 1 TABLET BY MOUTH DAILY AT 9 AM NEEDED FOR ALLERGY SYMPTOMS atorvastatin [Lipitor] 40 mg tablet 40 mg PO DAILY Qty: 90 2RF (DME) CPAP supplies See Rx Instructions .Route .MEDSUPPLY Qty: 1 0RF Rx Instructions: As directed insulin aspart U-100 [Novolog FlexPen U-100 Insulin] 100 unit/mL (3 mL) insulin pen See Rx Instructions .ROUTE .COMPLEX Rx Instructions: TAKE PER SLIDING SCALE 3 TIMES DAILY. diclofenac sodium 50 mg tablet,delayed release (DR/EC) 50 mg PO Q12H PRN (Reason: pain) Qty: 14 0RF ondansetron 4 mg tablet,disintegrating 4 mg PO Q6H PRN (Reason: nausea and vomiting) Qty: 14 0RF Discharge Orders: Discharge ED (Routine); Ordered 04/13/24 Ordered By: Dillon Huerta Referrals: Mikaela Hernadez MD [Primary Care Provider] - 1 week Patient Instructions: Cpcq-Axwn-Qrzzr Disease Activity Restrictions/Additional Instructions: You have been diagnosed with pnvt-hklq-hll-mouth disease which is caused back a coxsackie type virus. There is no definitive treatment. Treatment is symptomatic. It is usually self-limiting. Please follow-up with your family practitioner in the next 7 days as needed. Coding Level of Care Code ED Exchange Teller for Alcides Biggs
[2024-04-13 09:10] VITALS: BP 116/67; PULSE 71; O2SAT 95
[2024-04-13 09:21] VITALS: BP 116/67; PULSE 71; O2SAT 95
== END 2024-04-13 09:22 | disposition home or self-care (01) ==
PROVIDERS: Emergency Provider Emergency Medicine; PCP Family Medicine
DX: B08.4 Enteroviral vesicular stomatitis with exanthem (principal)
CPT/HCPCS: 99281

== ENCOUNTER → 2024-04-28 10:39 | Outpatient (BNVA) | payer MEDICAID, SELFPAY ==
[2023-09-26 14:30] VITALS: BP 113/78; BMI 42.6
== END ==
PROVIDERS: PCP Family Medicine; Visit Provider Internal Medicine Cardiovascular Disease
DX: R00.2 Palpitations (principal); I25.10 Atherosclerotic heart disease of native coronary artery without angina pectoris; E78.5 Hyperlipidemia, unspecified; F17.210 Nicotine dependence, cigarettes, uncomplicated; I10 Essential (primary) hypertension
CPT/HCPCS: 99214

== ENCOUNTER 2024-05-01 18:40 | Emergency (ER) | payer MEDICAID, SELFPAY ==
[2023-09-26 14:30] VITALS: BP 113/78; BMI 42.6
--- NOTE | 2024-05-01 18:46 | ECG_ITS ---
[facility] Test Date: 2024-05-01 Pat Name: Julissa Avalos Department: Room: Gender: Female Improvement Analyst: : 1980 Requested By: Dillon Huerta Order Number: [id number] Andrew MD: Maurisio Andrade M.D. Measurements Intervals [place] Rate: 77 P: 50 VA: 189 QRS: -75 QRSD: 87 T: 32 QT: 362 QTc: 410 Interpretive Statements SINUS RHYTHM LEFT AXIS DEVIATION [QRS AXIS < -30] LOW QRS VOLTAGE IN PRECORDIAL LEADS [QRS DEFLECTION < 1.0 mV IN CHEST LEADS] POSSIBLE ANTERIOR MYOCARDIAL INFARCTION , PROBABLY OLD [30 ms Q WAVE IN V3/V4, OR R < 0.2 mV IN V4] Compared to ECG 01/17/2024 13:42:49 Left-axis deviation now present Indeterminate axis no longer present Myocardial infarct finding still present Electronically Signed On 05-02-2024 22:35:41 OPERATOR ENGINEER by Maurisio Andrade M.D. [email or web address]
[2024-05-01 18:51] VITALS: BP 137/90; PULSE 71; RESP 18; TEMP 36.4; O2SAT 97; BMI 40.8
[2024-05-01 19:37] LABS: Basophils % 0.4 %; Eosinophils # 0.2 10^3/uL (0.0-0.8); Eosinophils % 2.3 %; Hematocrit 48.2 % (36-47); Lymphocytes # 3.2 10^3/uL (0.8-4.8); Lymphocytes % 30.4 %; Mean Corpuscular HGB Conc 34.9 g/dL (30-55); Mean Corpuscular Hemoglobin 29.1 pg (27-33); Mean Corpuscular Volume 83.4 fl (85-98); Mean Platelet Volume 12.8 fL (7.4-10.4); Monocytes # 0.7 10^3/uL (0.2-0.9); Monocytes % 6.8 %; Neutrophils # 6.34 10^3/uL (1.8-7.7); Neutrophils % 59.9 %; Nucleated Red Blood Cells % 0 %; Platelet Count 215 10^3/cmm (157-399); Red Blood Count 5.78 10^6/uL (3.85-5.65); White Blood Count 10.57 10^3/uL (3.29-11.43)
[2024-05-01 19:52] LABS: Troponin(5th) Baseline < 6 ng/L (0-10)
[2024-05-01 19:58] LABS: Anion Gap 12.4 (5-19); Blood Urea Nitrogen 8 mg/dL (6-20); Calcium 8.9 mg/dL (8.5-10.5); Carbon Dioxide 31 mmol/L (22-29); Chloride 97 mmol/L (98-107); Creatinine Clr Calc Pharmacy 121.7691; Glomerular Filtration Rate 90.5 mL/min (90-130); Glucose 260 mg/dL (65-115); Osmolality Calculated 289 mOsm/kg (285-295); Potassium 4.4 mmol/L (3.5-5.1); Sodium 136 mmol/L (136-145)
== END 2024-05-01 20:20 | disposition left against medical advice (07) ==
PROVIDERS: Emergency Medicine; Emergency Provider Family Medicine; PCP Family Medicine
DX: Z53.21 Procedure and treatment not carried out due to patient leaving prior to being seen by health care provider (principal)
CPT/HCPCS: 80048; 84484; 85025; 93005; 99285

== ENCOUNTER 2024-05-29 03:15 | Emergency (ER) | payer MEDICAID, SELFPAY ==
[2023-09-26 14:30] VITALS: BP 113/78; BMI 42.6
[2024-05-29] VITALS (11 sets, daily range): BP systolic 91–118; BP diastolic 50–79; PULSE 59–74; RESP 15–18; TEMP 36.4; O2SAT 92–97; BMI 42.9
--- NOTE | 2024-05-29 03:44 | W.ED.ABDPA2 ---
Documented by User: Dillon HuertaDO 05/29/24 03:45 HPI - Abdominal Pain General: Chief Complaint: Abdominal Pain Stated Complaint: Pain Back Left Side Time Seen by Provider: 05/29/24 03:22 History of Present Illness: Presents to the ER with complaints of left flank pain and painful urination for the last 3 days. Patient says it has been getting worse. Patient has had this pain before when she had a kidney stone. Patient denies any nausea vomiting fevers chills. Related Data Home Medications Medication Instructions Recorded Confirmed insulin aspart U-100 100 unit/mL See Rx Instructions .Route .COMPLEX 09/24/23 05/29/24 (3 mL) subcutaneous pen (Novolog FlexPen U-100 Insulin aspart) empagliflozin 25 mg tablet 25 mg PO DAILY 05/29/24 05/29/24 (Jardiance) Previous Rx's Medication Instructions Recorded diabetic supplies, miscellan. #1 ea 08/22/22 glucometer and strips 100 #1 ea 05/28/23 blood sugar diagnostic (Blood #200 ea 08/09/23 Glucose Test strips) pen needle, diabetic 32 gauge x #100 ea 09/05/23 (Comfort EZ Pen Hamilton) syringe with needle 6 mL (Monoject #300 ea 09/05/23 Safety Syringes) nystatin 100,000 unit/gram topical 1 applic topical BID #60 grams 10/04/23 powder pen needle, diabetic 31 gauge x #100 ea 10/25/2310/31 (TechLITE Pen Needle) ondansetron 8 mg disintegrating 8 mg PO Q8H PRN nausea and 10/27/23 tablet vomiting 5 days #15 tabs carvedilol 3.125 mg tablet 3.125 mg PO BID #60 tabs 10/30/23 blood-glucose sensor (Dexcom G7 #3 ea 10/31/23 Sensor device) gabapentin 300 mg capsule See Rx Instructions .Route 11/22/23 .COMPLEX #120 caps blood-glucose meter,continuous #1 ea 12/27/23 (Dexcom G7 Costumed Character Entertainer) prazosin 2 mg capsule 4 mg (2 x 2 mg) PO BEDTIME #60 caps 01/18/24 insulin glargine 100 unit/mL (3 60 unit (0.6 mL) SUBCUT QAM #45 mL 03/26/24 mL) subcutaneous pen (Lantus Solostar U-100 Insulin) atorvastatin 40 mg tablet (Lipitor) 40 mg PO DAILY #90 tabs 04/04/24 CPAP supplies #1 ea 04/24/24 tizanidine 4 mg tablet 4 mg PO TID PRN Muscle Spasm #60 04/24/24 tabs cariprazine 4.5 mg capsule 4.5 mg PO DAILY #30 caps 04/25/24 (Vraylar) citalopram 20 mg tablet 20 mg PO QAM #30 tabs 04/25/24 eszopiclone 3 mg tablet 3 mg PO BEDTIME #30 tabs 04/25/24 tramadol 50 mg tablet 50 mg PO TID PRN pain #90 tabs 05/26/24 hydrocodone 5 mg-acetaminophen 325 1 tab PO Q6H PRN pain #20 tabs 05/29/24 mg tablet tamsulosin 0.4 mg capsule 0.4 mg PO DAILY #20 caps 05/29/24 Allergies Allergy/AdvReac Type Severity Reaction Status Date / Time codeine Allergy Intermediate HALLUCINATI Verified 05/29/24 03:32 ONS latex Allergy Intermediate HIVES Verified 05/29/24 03:32 aspirin Allergy RASH Verified 05/29/24 03:32 oxycodone [From Percocet] Allergy RASH Verified 05/29/24 03:32 topiramate [From Topamax] Allergy RASH Verified 05/29/24 03:32 sumatriptan AdvReac Intermediate SOB; Verified 05/29/24 03:32 WHEEZING; DIZZINESS Review of Systems General: Reports: 10 or more systems reviewed and unremarkable except in HPI and below PFSH ED PFSH: Medical History Pain management contract signed tramadol; 10.9.24 HOMER (obstructive sleep apnea) on BIPAP Diabetic neuropathy associated with type 2 diabetes mellitus Uncontrolled type 2 diabetes mellitus with insulin therapy Facet arthritis, degenerative, lumbar spine Atherosclerosis of [place] coronary artery without angina pectoris Insomnia Urolithiasis Morbid obesity Bipolar 2 disorder Post-traumatic stress disorder, chronic Nicotine dependence, cigarettes, uncomplicated Psychiatric care Major depressive disorder without psychotic features Dyslipidemia Low back pain with sciatica Hypothyroidism Surgical History Hx of percutaneous transluminal coronary angioplasty History of total knee arthroplasty Right--has had 2 TKA--first in [place]--got infected then had another TKA at [facility] Hx laparoscopic cholecystectomy 03/01/23 Dr. Alarcon Hx of colonoscopy 2009 History of hernia repair umbilical and abdominal R side H/O: hysterectomy w/ BSO; had precancerous cells age 14, then had hyst for menometrorrhagia Hx of appendectomy 2005 Hx of laparoscopic gastric banding 2009 Family History Mother CAD (coronary artery disease) Stroke Father CAD (coronary artery disease) Other Cancer Diabetes Hypertension Social History Smoking and tobacco/nicotine status: current every day tobacco/nicotine user cigarettes Packs smoked per day: 1.5 Years cigarettes smoked: 28 Alcohol intake: never Substance/Drug Use: never Household members: significant other Housing: House Marital status: / Number of children: 0 Current occupational status: employed Current occupation: [employer] and [employer] Female Reproductive History: Spontaneous abortions: No Physical Exam Const: COMMON NORMALS: no acute distress, average body habitus, patient oriented x3, no limitations, healthy appearing, alert and well nourished HENMT: COMMON NORMALS: normocephalic, atraumatic, hearing grossly normal bilaterally, external ears normal, Normal external nose present and moist oral mucous membranes HEAD & SCALP: normocephalic and atraumatic NOSE: Normal external nose present EXTERNAL EAR: Yes external ears normal Neck/C-Spine: COMMON NORMALS: full ROM, no lymphadenopathy, supple, no meningeal signs, no JVD and Thyroid normal THYROID: Thyroid normal Chest: COMMONS NORMALS: normal inspection of the chest and normal palpation of entire chest wall Resp: COMMON NORMALS: normal respiratory effort, No retractions, No use of accessory muscles and clear to auscultation bilaterally AUSCULTATION: clear to auscultation bilaterally Cardio: COMMON NORMALS: no JVD, regular rate, regular rhythm, S1 normal heart sound present, S2 normal heart sound present, No gallops present (Cardio), No clicks present (Cardio), No murmurs present (Cardio) and No rub (Cardio) RATE: regular rate RHYTHM: regular rhythm HEART SOUNDS: S1 normal heart sound present and S2 normal heart sound present GI: COMMON NORMALS: Normal to inspection, nondistended, normoactive bowel sounds present, Soft to palpation, non-tender, No hepatosplenomegaly present and no masses PALPATION: Yes Soft to palpation and Yes No hepatosplenomegaly present Neuro: COMMON NORMALS: patient oriented x3 SENSORIUM/ORIENTATION: Yes alert MENINGEAL SIGNS: Yes no meningeal signs Course Vital Signs: Vital signs: Vital Signs Temperature 97.6 F 05/29/24 03:27 Pulse Rate 68 05/29/24 08:15 Respiratory Rate 17 05/29/24 06:30 Blood Pressure 108/69 05/29/24 08:15 Pulse Oximetry 95 05/29/24 08:15 Oxygen Delivery Me thod Room Air 05/29/24 08:00 MDM - Abdominal Pain Medical Records I reviewed the patient's medical records. Lab Data I reviewed the patient's lab results. 05/29/24 03:45 05/29/24 03:45 Labs/Radiology: Radiology Impressions Abdomen/Pelvis CT 05/29/24 04:43 IMPRESSION: Nonobstructive urinary stone just beyond the left ureteropelvic junction. Laboratory Results WBC 9.55 10^3/uL (3.29-11.43) 05/29/24 03:45 RBC 5.50 10^6/uL (3.85-5.65) 05/29/24 03:45 Hgb 16.00 g/dL (11.27-16.99) 05/29/24 03:45 Hct 47.7 % (36-47) H 05/29/24 03:45 MCV 86.7 fl (85-98) 05/29/24 03:45 MCH 29.1 pg (27-33) 05/29/24 03:45 MCHC 33.5 g/dL (30-55) 05/29/24 03:45 RDW 13.0 % (12.1-15.1) 05/29/24 03:45 Plt Count 181 10^3/cmm (157-399) 05/29/24 03:45 MPV 12.1 fL (7.4-10.4) H 05/29/24 03:45 Neut % (Auto) 50.6 % 05/29/24 03:45 Lymph % (Auto) 37.7 % 05/29/24 03:45 Wirt % (Auto) 7.5 % 05/29/24 03:45 Eos % (Auto) 3.5 % 05/29/24 03:45 Baso % (Auto) 0.4 % 05/29/24 03:45 Neut # (Auto) 4.83 10^3/uL (1.8-7.7) 05/29/24 03:45 Lymph # (Auto) 3.6 10^3/uL (0.8-4.8) 05/29/24 03:45 Wirt # (Auto) 0.7 10^3/uL (0.2-0.9) 05/29/24 03:45 Eos # (Auto) 0.3 10^3/uL (0.0-0.8) 05/29/24 03:45 Baso # (Auto) 0.0 10^3/uL (0.0-0.1) 05/29/24 03:45 Nucleated RBC % (auto) 0 % 05/29/24 03:45 Nucleated RBCs # 0.0 /100WBC 05/29/24 03:45 Sodium 135 mmol/L (136-145) L 05/29/24 03:45 Potassium 3.8 mmol/L (3.5-5.1) 05/29/24 03:45 Chloride 99 mmol/L (98-107) 05/29/24 03:45 Carbon Dioxide 24 mmol/L (22-29) 05/29/24 03:45 Anion Gap 15.8 (5-19) 05/29/24 03:45 BUN 6 mg/dL (6-20) 05/29/24 03:45 Creatinine 0.6 mg/dL (0.5-0.9) 05/29/24 03:45 GFR Calculation 108.1 mL/min (90-130) 05/29/24 03:45 Glucose 311 mg/dL (65-115) H 05/29/24 03:45 Calculated Osmolality 289 mOsm/kg (285-295) 05/29/24 03:45 Calcium 9.3 mg/dL (8.5-10.5) 05/29/24 03:45 Total Bilirubin 0.4 mg/dL (0.15-1.2) 05/29/24 03:45 AST 15 U/L (0-32) 05/29/24 03:45 ALT 21 U/L (0-33) 05/29/24 03:45 Alkaline Phosphatase 107 U/L (35-105) H 05/29/24 03:45 Total Protein 6.5 g/dL (6.6-8.7) L 05/29/24 03:45 Albumin 3.9 g/dL (3.5-5.2) 05/29/24 03:45 Globulin 2.6 g/dL (1.3-4.6) 05/29/24 03:45 Urine Color Yellow (Yellow) 05/29/24 03:50 Urine Appearance Clear (CLEAR) 05/29/24 03:50 Urine pH 5.5 (5-7) 05/29/24 03:50 Ur Specific [place] 1.051 (1.005-1.030) H 05/29/24 03:50 Urine Protein Negative (Negative) 05/29/24 03:50 Urine Glucose (UA) 3+ (Normal) H 05/29/24 03:50 Urine Ketones Negative (Negative) 05/29/24 03:50 Urine Blood Negative (Negative) 05/29/24 03:50 Urine Nitrate Negative (Negative) 05/29/24 03:50 Urine Bilirubin Negative (Negative) 05/29/24 03:50 Urine Urobilinogen 0.2 mg/dL (Negative) 05/29/24 03:50 Ur Leukocyte Esterase Negative (Negative) 05/29/24 03:50 Urine RBC 0-2 /hpf (0-2) 05/29/24 03:50 Urine WBC 0-5 /hpf (0-5) 05/29/24 03:50 Ur Squamous Epith Cells 0-5 /hpf (0-5) 05/29/24 03:50 Amorphous Sediment Not Reportable 05/29/24 03:50 Urine Bacteria None seen /hpf (NONE) 05/29/24 03:50 Hyaline Casts 0-4 /lpf H 05/29/24 03:50 All radiology interpretation(s) finalized by discharge Discharge Plan Discharge Patient Disposition: Home Clinical Impression: Calculus of kidney Condition: Stable Prescriptions: New hydrocodone-acetaminophen 5-325 mg tablet 1 tab PO Q6H PRN (Reason: pain) Qty: 20 0RF tamsulosin 0.4 mg capsule 0.4 mg PO DAILY Qty: 20 0RF No Action (DME) diabetic supplies[facility]an[facility] See [facility] Instructions .ROUTE .MEDSUPPLY Qty: 1 3RF Rx Instructions: Diabetic shoes with 3 pair of inserts (DME) glucometer and strips 100 See Rx Instructions .Route .MEDSUPPLY Qty: 1 11RF Rx Instructions: check her glucose 3 times a day and adjust sliding scale insulin nystatin 100,000 unit/gram powder 1 applic topical BID Qty: 60 2RF ondansetron 8 mg tablet,disintegrating 8 mg PO Q8H PRN (Reason: nausea and vomiting) 5 Days Qty: 15 0RF Vraylar 4.5 mg capsule 4.5 mg PO DAILY Qty: 30 2RF citalopram 20 mg tablet 20 mg PO QAM Qty: 30 2RF eszopiclone 3 mg tablet 3 mg PO BEDTIME Qty: 30 2RF (DME) Dexcom G7 Sensor Device See Rx Instructions .MEDSUPPLY Qty: 3 12RF Rx Instructions: Change every 10 days; Use as directed to check blood sugar carvedilol 3.125 mg tablet 3.125 mg PO BID Qty: 60 5RF prazosin 2 mg capsule 4 mg PO BEDTIME Qty: 60 2RF insulin glargine [Lantus Solostar U-100 Insulin] 100 unit/mL (3 mL) insulin pen 60 unit SUBCUT QAM Qty: 45 0RF (DME) Blood Glucose Test Strip See Rx Instructions .MEDSUPPLY Qty: 200 12RF Rx Instructions: Use as directed with glucometer to check blood sugar (DME) Monoject Safety Syringes 6 mL syringe See Rx Instructions .Route Qty: 300 0RF Rx Instructions: Use once a day to inject Lantus. (DME) pen needle, diabetic [Comfort EZ Pen [place]] 32 gauge x 5/32 needle See Rx Instructions .Route Qty: 100 2RF Rx Instructions: Use 3 times a day to inject Novolog (DME) pen needle, diabetic [TechLITE Pen Needle] 31 gauge x 5/16 needle See Rx Instructions .Route Qty: 100 2RF Rx Instructions: As directed gabapentin 300 mg capsule See Rx Instructions .ROUTE .COMPLEX Qty: 120 5RF Dose Instruction: TAKE 1 CAPSULE BY MOUTH THREE TIMES DAILY AT 9 AM, NOON, AND 8 PM Rx Instructions: Take 1 capsule (300mg) by mouth at 9am and 12pm and two capsules (600mg) at bedtime. (DME) Dexcom G7 Costumed Character Entertainer Misc See Rx Instructions .MEDSUPPLY Qty: 1 0RF Rx Instructions: Use as directed for checking blood sugar atorvastatin [Lipitor] 40 mg tablet 40 mg PO DAILY Qty: 90 2RF tizanidine 4 mg tablet 4 mg PO TID PRN (Reason: Muscle Spasm) Qty: 60 2RF (DME) CPAP supplies See Rx Instructions .Route .MEDSUPPLY Qty: 1 0RF Rx Instructions: As directed tramadol 50 mg tablet 50 mg PO TID PRN (Reason: pain) Qty: 90 3RF Hold Instructions: Resume on 03/06/23. insulin aspart U-100 [Novolog FlexPen U-100 Insulin] 100 unit/mL (3 mL) insulin pen See Rx Instructions .ROUTE .COMPLEX Rx Instructions: TAKE PER SLIDING SCALE 3 TIMES DAILY. Jardiance 25 mg tablet 25 mg PO DAILY Rx Instructions: on insulin, failed metformin; uncontrolled Discharge Orders: Discharge ED (Routine); Ordered 05/29/24 Ordered By: Tong Owens Referrals: Mikaela Hernadez MD [Primary Care Provider] - Discharge Diet: Usual diet Discharge Activity: Increase activity as tolerated Patient Instructions: Opioid Safety, Pain Management Activity Restrictions/Additional Instructions: Thank you for choosing [facility] for your healthcare needs today. It is very important that you follow up as instructed or that you return to the Emergency Department should you have concerns or if your condition changes or worsens in any way. You are seen today for flank pain. This CAT scan showed you had a kidney stone. The size of the stone was less than 5 mm and is likely to pass on its own. You should strain your urine. Take tamsulosin 1 daily. Use hydrocodone as needed for pain. Case management make arrangements for you to follow-up with urology. Coding Level of Care Code ED Therapist Occupational for [employer] Documented by User: Tong Owens DO 05/29/24 10:43 HPI - Abdominal Pain General: Chief Complaint: Abdominal Pain Stated Complaint: Pain Back Left Side Time Seen by Provider: 05/29/24 03:22 Related Data Home Medications Medication Instructions Recorded Confirmed insulin aspart U-100 100 unit/mL See Rx Instructions .Route .COMPLEX 09/24/23 05/29/24 (3 mL) subcutaneous pen (Novolog FlexPen U-100 Insulin aspart) empagliflozin 25 mg tablet 25 mg PO DAILY 05/29/24 05/29/24 (Jardiance) Previous Rx's Medication Instructions Recorded diabetic supplies, miscellan. #1 ea 08/22/22 glucometer and strips 100 #1 ea 05/28/23 blood sugar diagnostic (Blood #200 ea 08/09/23 Glucose Test strips) pen needle, diabetic 32 gauge x #100 ea 09/05/23 (Comfort EZ Pen Hamilton) syringe with needle 6 mL (Monoject #300 ea 09/05/23 Safety Syringes) nystatin 100,000 unit/gram topical 1 applic topical BID #60 grams 10/04/23 powder pen needle, diabetic 31 gauge x #100 ea 10/25/2310/31 (TechLITE Pen Needle) ondansetron 8 mg disintegrating 8 mg PO Q8H PRN nausea and 10/27/23 tablet vomiting 5 days #15 tabs carvedilol 3.125 mg tablet 3.125 mg PO BID #60 tabs 10/30/23 blood-glucose sensor (Dexcom G7 #3 ea 10/31/23 Sensor device) gabapentin 300 mg capsule See Rx Instructions .Route 11/22/23 .COMPLEX #120 caps blood-glucose meter,continuous #1 ea 12/27/23 (Dexcom G7 Costumed Character Entertainer) prazosin 2 mg capsule 4 mg (2 x 2 mg) PO BEDTIME #60 caps 01/18/24 insulin glargine 100 unit/mL (3 60 unit (0.6 mL) SUBCUT QAM #45 mL 03/26/24 mL) subcutaneous pen (Lantus Solostar U-100 Insulin) atorvastatin 40 mg tablet (Lipitor) 40 mg PO DAILY #90 tabs 04/04/24 CPAP supplies #1 ea 04/24/24 tizanidine 4 mg tablet 4 mg PO TID PRN Muscle Spasm #60 04/24/24 tabs cariprazine 4.5 mg capsule 4.5 mg PO DAILY #30 caps 04/25/24 (Vraylar) citalopram 20 mg tablet 20 mg PO QAM #30 tabs 04/25/24 eszopiclone 3 mg tablet 3 mg PO BEDTIME #30 tabs 04/25/24 tramadol 50 mg tablet 50 mg PO TID PRN pain #90 tabs 05/26/24 hydrocodone 5 mg-acetaminophen 325 1 tab PO Q6H PRN pain #20 tabs 05/29/24 mg tablet tamsulosin 0.4 mg capsule 0.4 mg PO DAILY #20 caps 05/29/24 Allergies Allergy/AdvReac Type Severity Reaction Status Date / Time codeine Allergy Intermediate HALLUCINATI Verified 05/29/24 03:32 ONS latex Allergy Intermediate HIVES Verified 05/29/24 03:32 aspirin Allergy RASH Verified 05/29/24 03:32 oxycodone [From Percocet] Allergy RASH Verified 05/29/24 03:32 topiramate [From Topamax] Allergy RASH Verified 05/29/24 03:32 sumatriptan AdvReac Intermediate SOB; Verified 05/29/24 03:32 WHEEZING; DIZZINESS [facility] ED PFSH: Medical History Pain management contract signed tramadol; 10.9.24 HOMER (obstructive sleep apnea) on BIPAP Diabetic neuropathy associated with type 2 diabetes mellitus Uncontrolled type 2 diabetes mellitus with insulin therapy Facet arthritis, degenerative, lumbar spine Atherosclerosis of [place] coronary artery without angina pectoris Insomnia Urolithiasis Morbid obesity Bipolar 2 disorder Post-traumatic stress disorder, chronic Nicotine dependence, cigarettes, uncomplicated Psychiatric care Major depressive disorder without psychotic features Dyslipidemia Low back pain with sciatica Hypothyroidism Surgical History Hx of percutaneous transluminal coronary angioplasty History of total knee arthroplasty Right--has had 2 TKA--first in [facility]--got infected then had another TKA at [facility] Hx laparoscopic cholecystectomy 03/01/23 Dr. Alarcon Hx of colonoscopy 2009 History of hernia repair umbilical and abdominal R side H/O: hysterectomy w/ BSO; had precancerous cells age 14, then had hyst for menometrorrhagia Hx of appendectomy 2005 Hx of laparoscopic gastric banding 2009 Family History Mother CAD (coronary artery disease) Stroke Father CAD (coronary artery disease) Other Cancer Diabetes Hypertension Social History Smoking and tobacco/nicotine status: current every day tobacco/nicotine user cigarettes Packs smoked per day: 1.5 Years cigarettes smoked: 28 Alcohol intake: never Substance/Drug Use: never Household members: significant other Housing: House Marital status: / Number of children: 0 Current occupational status: employed Current occupation: [employer] and [employer] Vital Signs: Vital signs: Vital Signs Temperature 97.6 F 05/29/24 03:27 Pulse Rate 68 05/29/24 08:15 Respiratory Rate 17 05/29/24 06:30 Blood Pressure 108/69 05/29/24 08:15 Pulse Oximetry 95 05/29/24 08:15 Oxygen Delivery Me thod Room Air 05/29/24 08:00 MDM - Abdominal Pain Medical Decision Making 43-year-old female care assumed at change of shift. CT read she does have a Nonobstructing left ureteral stone is rather proximal in the ureter measured at 4.7 mm. Suspect she will be able to pass this on her own her pain is well-controlled at this time will discharge home on tamsulosin hydrocodone strain her urine and have her follow-up with urology. Patient is no sign of ureteral obstruction at this time. Lab Data 05/29/24 03:45 05/29/24 03:45 Labs/Radiology: Radiology Impressions Abdomen/Pelvis CT 05/29/24 04:43 IMPRESSION: Nonobstructive urinary stone just beyond the left ureteropelvic junction. Laboratory Results WBC 9.55 10^3/uL (3.29-11.43) 05/29/24 03:45 RBC 5.50 10^6/uL (3.85-5.65) 05/29/24 03:45 Hgb 16.00 g/dL (11.27-16.99) 05/29/24 03:45 Hct 47.7 % (36-47) H 05/29/24 03:45 MCV 86.7 fl (85-98) 05/29/24 03:45 MCH 29.1 pg (27-33) 05/29/24 03:45 MCHC 33.5 g/dL (30-55) 05/29/24 03:45 RDW 13.0 % (12.1-15.1) 05/29/24 03:45 Plt Count 181 10^3/cmm (157-399) 05/29/24 03:45 MPV 12.1 fL (7.4-10.4) H 05/29/24 03:45 Neut % (Auto) 50.6 % 05/29/24 03:45 Lymph % (Auto) 37.7 % 05/29/24 03:45 Wirt % (Auto) 7.5 % 05/29/24 03:45 Eos % (Auto) 3.5 % 05/29/24 03:45 Baso % (Auto) 0.4 % 05/29/24 03:45 Neut # (Auto) 4.83 10^3/uL (1.8-7.7) 05/29/24 03:45 Lymph # (Auto) 3.6 10^3/uL (0.8-4.8) 05/29/24 03:45 Wirt # (Auto) 0.7 10^3/uL (0.2-0.9) 05/29/24 03:45 Eos # (Auto) 0.3 10^3/uL (0.0-0.8) 05/29/24 03:45 Baso # (Auto) 0.0 10^3/uL (0.0-0.1) 05/29/24 03:45 Nucleated RBC % (auto) 0 % 05/29/24 03:45 Nucleated RBCs # 0.0 /100WBC 05/29/24 03:45 Sodium 135 mmol/L (136-145) L 05/29/24 03:45 Potassium 3.8 mmol/L (3.5-5.1) 05/29/24 03:45 Chloride 99 mmol/L (98-107) 05/29/24 03:45 Carbon Dioxide 24 mmol/L (22-29) 05/29/24 03:45 Anion Gap 15.8 (5-19) 05/29/24 03:45 BUN 6 mg/dL (6-20) 05/29/24 03:45 Creatinine 0.6 mg/dL (0.5-0.9) 05/29/24 03:45 GFR Calculation 108.1 mL/min (90-130) 05/29/24 03:45 Glucose 311 mg/dL (65-115) H 05/29/24 03:45 Calculated Osmolality 289 mOsm/kg (285-295) 05/29/24 03:45 Calcium 9.3 mg/dL (8.5-10.5) 05/29/24 03:45 Total Bilirubin 0.4 mg/dL (0.15-1.2) 05/29/24 03:45 AST 15 U/L (0-32) 05/29/24 03:45 ALT 21 U/L (0-33) 05/29/24 03:45 Alkaline Phosphatase 107 U/L (35-105) H 05/29/24 03:45 Total Protein 6.5 g/dL (6.6-8.7) L 05/29/24 03:45 Albumin 3.9 g/dL (3.5-5.2) 05/29/24 03:45 Globulin 2.6 g/dL (1.3-4.6) 05/29/24 03:45 Urine Color Yellow (Yellow) 05/29/24 03:50 Urine Appearance Clear (CLEAR) 05/29/24 03:50 Urine pH 5.5 (5-7) 05/29/24 03:50 Ur Specific [place] 1.051 (1.005-1.030) H 05/29/24 03:50 Urine Protein Negative (Negative) 05/29/24 03:50 Urine Glucose (UA) 3+ (Normal) H 05/29/24 03:50 Urine Ketones Negative (Negative) 05/29/24 03:50 Urine Blood Negative (Negative) 05/29/24 03:50 Urine Nitrate Negative (Negative) 05/29/24 03:50 Urine Bilirubin Negative (Negative) 05/29/24 03:50 Urine Urobilinogen 0.2 mg/dL (Negative) 05/29/24 03:50 Ur Leukocyte Esterase Negative (Negative) 05/29/24 03:50 Urine RBC 0-2 /hpf (0-2) 05/29/24 03:50 Urine WBC 0-5 /hpf (0-5) 05/29/24 03:50 Ur Squamous Epith Cells 0-5 /hpf (0-5) 05/29/24 03:50 Amorphous Sediment Not Reportable 05/29/24 03:50 Urine Bacteria None seen /hpf (NONE) 05/29/24 03:50 Hyaline Casts 0-4 /lpf H 05/29/24 03:50 Discharge Plan Discharge Patient Disposition: Home Clinical Impression: Calculus of kidney Condition: Stable Prescriptions: New hydrocodone-acetaminophen 5-325 mg tablet 1 tab PO Q6H PRN (Reason: pain) Qty: 20 0RF tamsulosin 0.4 mg capsule 0.4 mg PO DAILY Qty: 20 0RF No Action (DME) diabetic supplies, miscellan. Misc See Rx Instructions .ROUTE .MEDSUPPLY Qty: 1 3RF Rx Instructions: Diabetic shoes with 3 pair of inserts (DME) glucometer and strips 100 See Rx Instructions .Route .MEDSUPPLY Qty: 1 11RF Rx Instructions: check her glucose 3 times a day and adjust sliding scale insulin nystatin 100,000 unit/gram powder 1 applic topical BID Qty: 60 2RF ondansetron 8 mg tablet,disintegrating 8 mg PO Q8H PRN (Reason: nausea and vomiting) 5 Days Qty: 15 0RF Vraylar 4.5 mg capsule 4.5 mg PO DAILY Qty: 30 2RF citalopram 20 mg tablet 20 mg PO QAM Qty: 30 2RF eszopiclone 3 mg tablet 3 mg PO BEDTIME Qty: 30 2RF (DME) Dexcom G7 Sensor Device See Rx Instructions .MEDSUPPLY Qty: 3 12RF Rx Instructions: Change every 10 days; Use as directed to check blood sugar carvedilol 3.125 mg tablet 3.125 mg PO BID Qty: 60 5RF prazosin 2 mg capsule 4 mg PO BEDTIME Qty: 60 2RF insulin glargine [Lantus Solostar U-100 Insulin] 100 unit/mL (3 mL) insulin pen 60 unit SUBCUT QAM Qty: 45 0RF (DME) Blood Glucose Test Strip See Rx Instructions .MEDSUPPLY Qty: 200 12RF Rx Instructions: Use as directed with glucometer to check blood sugar (DME) Monoject Safety Syringes 6 mL syringe See Rx Instructions .Route Qty: 300 0RF Rx Instructions: Use once a day to inject Lantus. (DME) pen needle, diabetic [Comfort EZ Pen [place]] 32 gauge x 5/32 needle See Rx Instructions .Route Qty: 100 2RF Rx Instructions: Use 3 times a day to inject Novolog (DME) pen needle, diabetic [TechLITE Pen Needle] 31 gauge x 5/16 needle See Rx Instructions .Route Qty: 100 2RF Rx Instructions: As directed gabapentin 300 mg capsule See Rx Instructions .ROUTE .COMPLEX Qty: 120 5RF Dose Instruction: TAKE 1 CAPSULE BY MOUTH THREE TIMES DAILY AT 9 AM, NOON, AND 8 PM Rx Instructions: Take 1 capsule (300mg) by mouth at 9am and 12pm and two capsules (600mg) at bedtime. (DME) Dexcom G7 Costumed Character Entertainer Misc See Rx Instructions .MEDSUPPLY Qty: 1 0RF Rx Instructions: Use as directed for checking blood sugar atorvastatin [Lipitor] 40 mg tablet 40 mg PO DAILY Qty: 90 2RF tizanidine 4 mg tablet 4 mg PO TID PRN (Reason: Muscle Spasm) Qty: 60 2RF (DME) CPAP supplies See Rx Instructions .Route .MEDSUPPLY Qty: 1 0RF Rx Instructions: As directed tramadol 50 mg tablet 50 mg PO TID PRN (Reason: pain) Qty: 90 3RF Hold Instructions: Resume on 03/06/23. insulin aspart U-100 [Novolog FlexPen U-100 Insulin] 100 unit/mL (3 mL) insulin pen See Rx Instructions .ROUTE .COMPLEX Rx Instructions: TAKE PER SLIDING SCALE 3 TIMES DAILY. Jardiance 25 mg tablet 25 mg PO DAILY Rx Instructions: on insulin, failed metformin; uncontrolled Discharge Orders: Discharge ED (Routine); Ordered 05/29/24 Ordered By: Tong Owens Referrals: Mikaela Hrenadez MD [Primary Care Provider] - Discharge Diet: Usual diet Discharge Activity: Increase activity as tolerated Patient Instructions: Opioid Safety, Pain Management Activity Restrictions/Additional Instructions: Thank you for choosing [facility] for your healthcare needs today. It is very important that you follow up as instructed or that you return to the Emergency Department should you have concerns or if your condition changes or worsens in any way. You are seen today for flank pain. This CAT scan showed you had a kidney stone. The size of the stone was less than 5 mm and is likely to pass on its own. You should strain your urine. Take tamsulosin 1 daily. Use hydrocodone as needed for pain. Case management make arrangements for you to follow-up with urology. 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
[2024-05-29] MEDS: ketorolac 60 mg/2 mL INJ IM (03:53)
[2024-05-29 03:56] LABS: Basophils % 0.4 %; Eosinophils # 0.3 10^3/uL (0.0-0.8); Eosinophils % 3.5 %; Hematocrit 47.7 % (36-47); Lymphocytes # 3.6 10^3/uL (0.8-4.8); Lymphocytes % 37.7 %; Mean Corpuscular HGB Conc 33.5 g/dL (30-55); Mean Corpuscular Hemoglobin 29.1 pg (27-33); Mean Corpuscular Volume 86.7 fl (85-98); Mean Platelet Volume 12.1 fL (7.4-10.4); Monocytes # 0.7 10^3/uL (0.2-0.9); Monocytes % 7.5 %; Neutrophils # 4.83 10^3/uL (1.8-7.7); Neutrophils % 50.6 %; Nucleated Red Blood Cells % 0 %; Platelet Count 181 10^3/cmm (157-399); White Blood Count 9.55 10^3/uL (3.29-11.43)
[2024-05-29 04:05] LABS: Bilirubin Urine Negative (Negative); Blood Urine Negative (Negative); Glucose Urine UA 3+ (Normal); Ketones Urine Negative (Negative); Leukocyte Esterase Urine Negative (Negative); Nitrate Urine Negative (Negative); Protein Urine Negative (Negative); Urine Appearance Clear (CLEAR); Urine Color Yellow (Yellow); Urobilinogen Urine 0.2 mg/dL (Negative); pH Urine 5.5 (5-7)
[2024-05-29 04:10] LABS: Add Urine Microscopic? YES; Bacteria Urine None Seen /hpf; Hyaline Casts Urine 0-4 /lpf; RBC Urine 0-2 /hpf (0-2); Squamous Epithelial Cell Urine 0-5 /hpf (0-5); WBC Urine 0-5 /hpf (0-5)
[2024-05-29 04:17] LABS: Alanine Aminotransferase 21 U/L (0-33); Albumin Level 3.9 g/dL (3.5-5.2); Alkaline Phosphatase 107 U/L (35-105); Anion Gap 15.8 (5-19); Aspartate Amino Transferase 15 U/L (0-32); Blood Urea Nitrogen 6 mg/dL (6-20); Calcium 9.3 mg/dL (8.5-10.5); Carbon Dioxide 24 mmol/L (22-29); Chloride 99 mmol/L (98-107); Creatinine Clr Calc Pharmacy 146.1336; Globulin 2.6 g/dL (1.3-4.6); Glomerular Filtration Rate 108.1 mL/min (90-130); Glucose 311 mg/dL (65-115); Osmolality Calculated 289 mOsm/kg (285-295); Potassium 3.8 mmol/L (3.5-5.1); Sodium 135 mmol/L (136-145); Total Bilirubin 0.4 mg/dL (0.15-1.2); Total Protein 6.5 g/dL (6.6-8.7)
--- NOTE | 2024-05-29 04:43 | CTR_ITS ---
PROCEDURE INFORMATION: Exam: CT Abdomen And Pelvis Without Contrast Exam date and time: 05/29/2024 5:11 AM Age: 43 years old Clinical indication: Abdominal pain; Other: Left flank pain; Prior surgery; Surgery date: 6+ months; Surgery type: Hysterectomy, choley, appy, hernia repair, gastric band 2009; Additional info: Left flank pain history of kidney stones TECHNIQUE: Imaging protocol: Computed tomography of the abdomen and pelvis without contrast. Radiation optimization: All CT scans at this facility use at least one of these dose optimization techniques: automated exposure control; mA and/or kV adjustment per patient size (includes targeted exams where dose is matched to clinical indication); or iterative reconstruction. COMPARISON: CT abdomen pelvis w con* [id number] 03/06/2023 7:01 PM RADIATION DOSE METRICS: Total DLP (mGy-cm): 1173.89 FINDINGS: Tubes, catheters and devices: Lap band changes are seen without evidence for acute surgical complication. Lungs: Lung bases are clear as visualized. Heart: Base of heart is unremarkable as visualized. Liver: Normal. No mass. Gallbladder and biliary ducts: Status post cholecystectomy. Pancreas: Normal. No ductal dilation. Spleen: Normal. No splenomegaly. Adrenal glands: Normal. No mass. Kidneys and ureters: Just beyond the left ureteropelvic junction there is a 4.7 mm urinary stone which does not cause significant upstream obstruction. Stomach and bowel: Unremarkable. No obstruction. No mucosal thickening. Appendix: Status post appendectomy. Intraperitoneal space: Anterior abdominal wall postsurgical change with likely underlying small anterior omental infarcts. Vasculature: Pelvic phleboliths. Lymph nodes: Unremarkable. No enlarged lymph nodes. Urinary bladder: Unremarkable as visualized. Reproductive: Unremarkable as visualized. Bones/joints: Diffuse degenerative change of the visualized osseous structures. Soft tissues: Unremarkable. CT/CT kidney stone [id number] IMPRESSION: Nonobstructive urinary stone just beyond the left ureteropelvic junction.
[2024-05-29 04:58] LABS: Specific Gravity, Urine 1.051 (1.005-1.030)
[2024-05-29] MEDS: morphine 4 mg/mL SDV 1 mL IVP (04:58)
[2024-05-29] MEDS: ondansetron 2 mg/ML SDV 2 mL 4 MG IVP (04:59)
== END 2024-05-29 08:25 | disposition home or self-care (01) ==
PROVIDERS: Emergency Medicine; Emergency Provider Family Medicine; PCP Family Medicine
DX: N20.0 Calculus of kidney (principal); Z79.4 Long term (current) use of insulin; F17.210 Nicotine dependence, cigarettes, uncomplicated; E11.40 Type 2 diabetes mellitus with diabetic neuropathy, unspecified; E78.5 Hyperlipidemia, unspecified
CPT/HCPCS: 36415; 74176; 80053; 81001; 85025; 96372; 96374; 96375; 99285; J1885; J2270; J2405

== ENCOUNTER → 2024-05-30 10:07 | Outpatient (BNVA) | payer MEDICAID, SELFPAY ==
[2023-09-26 14:30] VITALS: BP 113/78; BMI 42.6
== END ==
PROVIDERS: PCP Family Medicine; Visit Provider Family Medicine
DX: Z23 Encounter for immunization (principal); E11.9 Type 2 diabetes mellitus without complications; Z79.4 Long term (current) use of insulin; N20.9 Urinary calculus, unspecified
CPT/HCPCS: 83036; 87086

== ENCOUNTER 2024-06-08 14:24 | Emergency (ER) | payer MEDICAID, SELFPAY ==
[2023-09-26 14:30] VITALS: BP 113/78; BMI 42.6
[2024-06-08 14:28] VITALS: BP 141/87; PULSE 85; RESP 18; TEMP 36.4; O2SAT 92
[2024-06-08 15:03] LABS: Basophils # 0.1 10^3/uL (0.0-0.1); Basophils % 0.6 %; Eosinophils # 0.2 10^3/uL (0.0-0.8); Eosinophils % 2.3 %; Hematocrit 48.3 % (36-47); Lymphocytes # 2.4 10^3/uL (0.8-4.8); Mean Corpuscular HGB Conc 33.3 g/dL (30-55); Mean Corpuscular Hemoglobin 28.8 pg (27-33); Mean Corpuscular Volume 86.4 fl (85-98); Mean Platelet Volume 12.3 fL (7.4-10.4); Monocytes # 0.5 10^3/uL (0.2-0.9); Neutrophils # 5.73 10^3/uL (1.8-7.7); Nucleated Red Blood Cells % 0 %; Platelet Count 194 10^3/cmm (157-399); Red Blood Count 5.59 10^6/uL (3.85-5.65); Red Cell Distribution Width 13.2 % (12.1-15.1); White Blood Count 8.96 10^3/uL (3.29-11.43)
--- NOTE | 2024-06-08 15:06 | W.ED.ABDPA2 ---
HPI - Abdominal Pain General: Chief Complaint: Abdominal Pain Stated Complaint: stomach pain nausea Time Seen by Provider: 06/08/24 14:43 History of Present Illness: Presents to the ER with abdominal pain, nausea vomiting, headache. This all started yesterday. Patient says she feels like she did when she had a stomach virus 3 months ago except now she has a headache. Patient took her home Zofran and Reglan with limited effect. Patient said her abdominal pain is dull achy crampy and diffuse. Related Data Home Medications Medication Instructions Recorded Confirmed insulin aspart U-100 100 unit/mL See Rx Instructions .Route .COMPLEX 09/24/23 05/30/24 (3 mL) subcutaneous pen (Novolog FlexPen U-100 Insulin aspart) empagliflozin 25 mg tablet 25 mg PO DAILY 05/29/24 05/30/24 (Jardiance) Previous Rx's Medication Instructions Recorded diabetic supplies, miscellan. #1 ea 08/22/22 glucometer and strips 100 #1 ea 05/28/23 blood sugar diagnostic (Blood #200 ea 08/09/23 Glucose Test strips) pen needle, diabetic 32 gauge x #100 ea 09/05/23 (Comfort EZ Pen [place]) syringe with needle 6 mL (Monoject #300 ea 09/05/23 Safety Syringes) nystatin 100,000 unit/gram topical 1 applic topical BID #60 grams 10/04/23 powder pen needle, diabetic 31 gauge x #100 ea 10/25/2310/31 (TechLITE Pen Needle) ondansetron 8 mg disintegrating 8 mg PO Q8H PRN nausea and 10/27/23 tablet vomiting 5 days #15 tabs carvedilol 3.125 mg tablet 3.125 mg PO BID #60 tabs 10/30/23 blood-glucose sensor (Dexcom G7 #3 ea 10/31/23 Sensor device) gabapentin 300 mg capsule See Rx Instructions .Route 11/22/23 .COMPLEX #120 caps blood-glucose meter,continuous #1 ea 12/27/23 (Dexcom G7 Ass[employer] [facility]) prazosin 2 mg capsule 4 mg (2 x 2 mg) PO BEDTIME #60 caps 01/18/24 insulin glargine 100 unit/mL (3 60 unit (0.6 mL) SUBCUT QAM #45 mL 03/26/24 mL) subcutaneous pen (Lantus Solostar U-100 Insulin) atorvastatin 40 mg tablet (Lipitor) 40 mg PO DAILY #90 tabs 04/04/24 CPAP supplies #1 ea 04/24/24 tizanidine 4 mg tablet 4 mg PO TID PRN Muscle Spasm #60 04/24/24 tabs cariprazine 4.5 mg capsule 4.5 mg PO DAILY #30 caps 04/25/24 (Vraylar) citalopram 20 mg tablet 20 mg PO QAM #30 tabs 04/25/24 eszopiclone 3 mg tablet 3 mg PO BEDTIME #30 tabs 04/25/24 tramadol 50 mg tablet 50 mg PO TID PRN pain #90 tabs 05/26/24 hydrocodone 5 mg-acetaminophen 325 1 tab PO Q6H PRN pain #20 tabs 05/29/24 mg tablet tamsulosin 0.4 mg capsule 0.4 mg PO DAILY #20 caps 05/29/24 fluconazole 150 mg tablet 150 mg PO DAILY #1 tab 05/30/24 omeprazole 20 mg capsule,delayed 20 mg PO DAILY #90 caps 05/30/24 release Allergies Allergy/AdvReac Type Severity Reaction Status Date / Time codeine Allergy Intermediate HALLUCINATI Verified 06/08/24 14:32 ONS latex Allergy Intermediate HIVES Verified 06/08/24 14:32 aspirin Allergy RASH Verified 06/08/24 14:32 oxycodone [From Percocet] Allergy RASH Verified 06/08/24 14:32 topiramate [From Topamax] Allergy RASH Verified 06/08/24 14:32 sumatriptan AdvReac Intermediate SOB; Verified 06/08/24 14:32 WHEEZING; DIZZINESS Review of Systems General: Reports: 10 or more systems reviewed and unremarkable except in HPI and below PFSH ED PFSH: Medical History GERD without esophagitis Calculus of kidney L 4.7mm UVP junction on CT Encounter for chronic pain management tramadol for chronic back pain Pain management contract signed tramadol; 03.26.24 HOMER (obstructive sleep apnea) on BIPAP Diabetic neuropathy associated with type 2 diabetes mellitus Uncontrolled type 2 diabetes mellitus with insulin therapy Facet arthritis, degenerative, lumbar spine Atherosclerosis of [place] coronary artery without angina pectoris Insomnia Urolithiasis Morbid obesity Bipolar 2 disorder Post-traumatic stress disorder, chronic Nicotine dependence, cigarettes, uncomplicated Psychiatric care Major depressive disorder without psychotic features Dyslipidemia Low back pain with sciatica Hypothyroidism Surgical History Hx of percutaneous transluminal coronary angioplasty History of total knee arthroplasty Right--has had 2 TKA--first in [place]--got infected then had another TKA at [facility] Hx laparoscopic cholecystectomy 03/01/23 Dr. Alarcon Hx of colonoscopy 2009 History of hernia repair umbilical and abdominal R side H/O: hysterectomy w/ BSO; had precancerous cells age 14, then had hyst for menometrorrhagia Hx of appendectomy 2005 Hx of laparoscopic gastric banding 2009 Family History Mother CAD (coronary artery disease) Stroke Father CAD (coronary artery disease) Other Cancer Diabetes Hypertension Social History Smoking and tobacco/nicotine status: current every day tobacco/nicotine user cigarettes Packs smoked per day: 1.5 Years cigarettes smoked: 28 Alcohol intake: never Substance/Drug Use: never Household members: significant other Housing: House Marital status: / Number of children: 0 Current occupational status: employed Current occupation: [employer] and [employer] Female Reproductive History: Spontaneous abortions: No Physical Exam Const: COMMON NORMALS: no acute distress, average body habitus, patient oriented x3, no limitations, healthy appearing, alert and well nourished HENMT: COMMON NORMALS: normocephalic, atraumatic, hearing grossly normal bilaterally, external ears normal, Normal external nose present and moist oral mucous membranes HEAD & SCALP: normocephalic and atraumatic NOSE: Normal external nose present EXTERNAL EAR: Yes external ears normal Neck/C-Spine: COMMON NORMALS: no JVD Chest: COMMONS NORMALS: normal inspection of the chest and normal palpation of entire chest wall Resp: COMMON NORMALS: normal respiratory effort, No retractions, No use of accessory muscles and clear to auscultation bilaterally AUSCULTATION: clear to auscultation bilaterally Cardio: COMMON NORMALS: no JVD, regular rate, regular rhythm, S1 normal heart sound present, S2 normal heart sound present, No gallops present (Cardio), No clicks present (Cardio) and No rub (Cardio) RATE: regular rate RHYTHM: regular rhythm HEART SOUNDS: S1 normal heart sound present and S2 normal heart sound present GI: COMMON NORMALS: Normal to inspection, nondistended, normoactive bowel sounds present, Soft to palpation, No hepatosplenomegaly present and no masses; negative for non-tender (Mildly tender down low.) PALPATION: Yes Soft to palpation and Yes No hepatosplenomegaly present Neuro: COMMON NORMALS: patient oriented x3 SENSORIUM/ORIENTATION: Yes alert Course Vital Signs: Vital signs: Vital Signs Temperature 97.5 F L 06/08/24 14:28 Pulse Rate 85 06/08/24 14:28 Respiratory Rate 18 06/08/24 14:28 Blood Pressure 141/87 06/08/24 14:28 Pulse Oximetry 92 06/08/24 14:28 Oxygen Delivery Me thod Room Air 06/08/24 14:28 MDM - Abdominal Pain Medical Decision Making Lab work was obtained included CBC CMP lipase magnesium and urinalysis all essentially benign. Patient was given Compazine in the ER for nausea. Patient be discharged home to follow-up with her PCP. Medical Records I reviewed the patient's medical records. Lab Data I reviewed the patient's lab results. 06/08/24 14:57 06/08/24 14:57 Labs/Radiology: Laboratory Results WBC 8.96 10^3/uL (3.29-11.43) 06/08/24 14:57 RBC 5.59 10^6/uL (3.85-5.65) 06/08/24 14:57 Hgb 16.10 g/dL (11.27-16.99) 06/08/24 14:57 Hct 48.3 % (36-47) H 06/08/24 14:57 MCV 86.4 fl (85-98) 06/08/24 14:57 MCH 28.8 pg (27-33) 06/08/24 14:57 MCHC 33.3 g/dL (30-55) 06/08/24 14:57 RDW 13.2 % (12.1-15.1) 06/08/24 14:57 Plt Count 194 10^3/cmm (157-399) 06/08/24 14:57 MPV 12.3 fL (7.4-10.4) H 06/08/24 14:57 Neut % (Auto) 64.0 % 06/08/24 14:57 Lymph % (Auto) 27.0 % 06/08/24 14:57 [place] % (Auto) 6.0 % 06/08/24 14:57 Eos % (Auto) 2.3 % 06/08/24 14:57 Baso % (Auto) 0.6 % 06/08/24 14:57 Neut # (Auto) 5.73 10^3/uL (1.8-7.7) 06/08/24 14:57 Lymph # (Auto) 2.4 10^3/uL (0.8-4.8) 06/08/24 14:57 [place] # (Auto) 0.5 10^3/uL (0.2-0.9) 06/08/24 14:57 Eos # (Auto) 0.2 10^3/uL (0.0-0.8) 06/08/24 14:57 Baso # (Auto) 0.1 10^3/uL (0.0-0.1) 06/08/24 14:57 Nucleated RBC % (auto) 0 % 06/08/24 14:57 Nucleated RBCs # 0.0 /100WBC 06/08/24 14:57 Sodium 138 mmol/L (136-145) 06/08/24 14:57 Potassium 4.0 mmol/L (3.5-5.1) 06/08/24 14:57 Chloride 100 mmol/L (98-107) 06/08/24 14:57 Carbon Dioxide 28 mmol/L (22-29) 06/08/24 14:57 Anion Gap 14.0 (5-19) 06/08/24 14:57 BUN 8 mg/dL (6-20) 06/08/24 14:57 Creatinine 0.5 mg/dL (0.5-0.9) 06/08/24 14:57 GFR Calculation 133.4 mL/min (90-130) H 06/08/24 14:57 Glucose 196 mg/dL (65-115) H 06/08/24 14:57 Calculated Osmolality 290 mOsm/kg (285-295) 06/08/24 14:57 Calcium 9.0 mg/dL (8.5-10.5) 06/08/24 14:57 Magnesium 2.1 mg/dL (1.7-2.3) 06/08/24 14:57 Total Bilirubin 0.6 mg/dL (0.15-1.2) 06/08/24 14:57 AST 13 U/L (0-32) 06/08/24 14:57 ALT 20 U/L (0-33) 06/08/24 14:57 Alkaline Phosphatase 127 U/L (35-105) H 06/08/24 14:57 Total Protein 6.7 g/dL (6.6-8.7) 06/08/24 14:57 Albumin 3.9 g/dL (3.5-5.2) 06/08/24 14:57 Globulin 2.8 g/dL (1.3-4.6) 06/08/24 14:57 Lipase 23 U/L (13-60) 06/08/24 14:57 Urine Color Yellow (Yellow) 06/08/24 15:51 Urine Appearance Clear (CLEAR) 06/08/24 15:51 Urine pH 6.5 (5-7) 06/08/24 15:51 Ur Specific [place] 1.043 (1.005-1.030) H 06/08/24 15:51 Urine Protein Negative (Negative) 06/08/24 15:51 Urine Glucose (UA) 2+ (Normal) H 06/08/24 15:51 Urine Ketones Negative (Negative) 06/08/24 15:51 Urine Blood Negative (Negative) 06/08/24 15:51 Urine Nitrate Negative (Negative) 06/08/24 15:51 Urine Bilirubin Negative (Negative) 06/08/24 15:51 Urine Urobilinogen 0.2 mg/dL (Negative) 06/08/24 15:51 Ur Leukocyte Esterase Negative (Negative) 06/08/24 15:51 Urine RBC 6-10 /hpf (0-2) 06/08/24 15:51 Urine WBC 0-5 /hpf (0-5) 06/08/24 15:51 Ur Squamous Epith Cells 0-5 /hpf (0-5) 06/08/24 15:51 Amorphous Sediment Not Reportable 06/08/24 15:51 Urine Bacteria Trace /hpf (NONE) 06/08/24 15:51 Hyaline Casts 0-4 /lpf H 06/08/24 15:51 All radiology interpretation(s) finalized by discharge Discharge Plan Discharge Patient Disposition: Home Clinical Impression: Gastroenteritis Abdominal pain Qualifiers: Abdominal location: unspecified location Qualified Code(s): R10.9 - Unspecified abdominal pain Condition: Stable Prescriptions: No Action (DME) diabetic supplies, miscellan. Misc See Rx Instructions .ROUTE .MEDSUPPLY Qty: 1 3RF Rx Instructions: Diabetic shoes with 3 pair of inserts (DME) glucometer and strips 100 See Rx Instructions .Route .MEDSUPPLY Qty: 1 11RF Rx Instructions: check her glucose 3 times a day and adjust sliding scale insulin nystatin 100,000 unit/gram powder 1 applic topical BID Qty: 60 2RF ondansetron 8 mg tablet,disintegrating 8 mg PO Q8H PRN (Reason: nausea and vomiting) 5 Days Qty: 15 0RF Vraylar 4.5 mg capsule 4.5 mg PO DAILY Qty: 30 2RF citalopram 20 mg tablet 20 mg PO QAM Qty: 30 2RF eszopiclone 3 mg tablet 3 mg PO BEDTIME Qty: 30 2RF (DME) Dexcom G7 Sensor Device See Rx Instructions .MEDSUPPLY Qty: 3 12RF Rx Instructions: Change every 10 days; Use as directed to check blood sugar carvedilol 3.125 mg tablet 3.125 mg PO BID Qty: 60 5RF prazosin 2 mg capsule 4 mg PO BEDTIME Qty: 60 2RF fluconazole 150 mg tablet 150 mg PO DAILY Qty: 1 0RF omeprazole 20 mg capsule,delayed release(DR/EC) 20 mg PO DAILY Qty: 90 3RF insulin glargine [Lantus Solostar U-100 Insulin] 100 unit/mL (3 mL) insulin pen 60 unit SUBCUT QAM Qty: 45 0RF (DME) Blood Glucose Test Strip See Rx Instructions .MEDSUPPLY Qty: 200 12RF Rx Instructions: Use as directed with glucometer to check blood sugar (DME) Monoject Safety Syringes 6 mL syringe See Rx Instructions .Route Qty: 300 0RF Rx Instructions: Use once a day to inject Lantus. (DME) pen needle, diabetic [Comfort EZ Pen [place]] 32 gauge x 5/32 needle See Rx Instructions .Route Qty: 100 2RF Rx Instructions: Use 3 times a day to inject Novolog (DME) pen needle, diabetic [TechLITE Pen Needle] 31 gauge x 5/16 needle See Rx Instructions .Route Qty: 100 2RF Rx Instructions: As directed gabapentin 300 mg capsule See Rx Instructions .ROUTE .COMPLEX Qty: 120 5RF Dose Instruction: TAKE 1 CAPSULE BY MOUTH THREE TIMES DAILY AT 9 AM, NOON, AND 8 PM Rx Instructions: Take 1 capsule (300mg) by mouth at 9am and 12pm and two capsules (600mg) at bedtime. (DME) Dexcom G7 Assurance Services Manager [facility] Misc See Rx Instructions .MEDSUPPLY Qty: 1 0RF Rx Instructions: Use as directed for checking blood sugar atorvastatin [Lipitor] 40 mg tablet 40 mg PO DAILY Qty: 90 2RF tizanidine 4 mg tablet 4 mg PO TID PRN (Reason: Muscle Spasm) Qty: 60 2RF (DME) CPAP supplies See Rx Instructions .Route .MEDSUPPLY Qty: 1 0RF Rx Instructions: As directed tramadol 50 mg tablet 50 mg PO TID PRN (Reason: pain) Qty: 90 3RF Hold Instructions: Resume on 03/06/23. insulin aspart U-100 [Novolog FlexPen U-100 Insulin] 100 unit/mL (3 mL) insulin pen See Rx Instructions .ROUTE .COMPLEX Rx Instructions: TAKE PER SLIDING SCALE 3 TIMES DAILY. hydrocodone-acetaminophen 5-325 mg tablet 1 tab PO Q6H PRN (Reason: pain) Qty: 20 0RF tamsulosin 0.4 mg capsule 0.4 mg PO DAILY Qty: 20 0RF Jardiance 25 mg tablet 25 mg PO DAILY Rx Instructions: on insulin, failed metformin; uncontrolled Discharge Orders: Discharge ED (Routine); Ordered 06/08/24 Ordered By: Dillon Huerta Referrals: Mikaela Hernadez MD [Primary Care Provider] - 1 week Patient Instructions: Abdominal Pain (ED), Gastroenteritis (ED) Activity Restrictions/Additional Instructions: The lab work in the ER did not show any acute cause of your symptomatology. It is thought to be viral in nature. Please continue supportive care and follow-up with your PCP within next 7 days for further evaluation and treatment. 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
[2024-06-08] MEDS: prochlorperazine 10 mg Tablet PO (15:17)
[2024-06-08 15:21] LABS: Alanine Aminotransferase 20 U/L (0-33); Albumin Level 3.9 g/dL (3.5-5.2); Alkaline Phosphatase 127 U/L (35-105); Aspartate Amino Transferase 13 U/L (0-32); Blood Urea Nitrogen 8 mg/dL (6-20); Carbon Dioxide 28 mmol/L (22-29); Chloride 100 mmol/L (98-107); Creatinine Clr Calc Pharmacy 175.3603; Globulin 2.8 g/dL (1.3-4.6); Glomerular Filtration Rate 133.4 mL/min (90-130); Glucose 196 mg/dL (65-115); Lipase 23 U/L (13-60); Magnesium 2.1 mg/dL (1.7-2.3); Osmolality Calculated 290 mOsm/kg (285-295); Sodium 138 mmol/L (136-145); Total Bilirubin 0.6 mg/dL (0.15-1.2); Total Protein 6.7 g/dL (6.6-8.7)
[2024-06-08 16:16] LABS: Bilirubin Urine Negative (Negative); Blood Urine Negative (Negative); Glucose Urine UA 2+ (Normal); Ketones Urine Negative (Negative); Leukocyte Esterase Urine Negative (Negative); Nitrate Urine Negative (Negative); Protein Urine Negative (Negative); Urine Appearance Clear (CLEAR); Urine Color Yellow (Yellow); Urobilinogen Urine 0.2 mg/dL (Negative); pH Urine 6.5 (5-7)
[2024-06-08 16:21] LABS: Add Urine Microscopic? YES; Bacteria Urine Trace /hpf; Hyaline Casts Urine 0-4 /lpf; Squamous Epithelial Cell Urine 0-5 /hpf (0-5); WBC Urine 0-5 /hpf (0-5)
[2024-06-08 16:24] LABS: Specific Gravity, Urine 1.043 (1.005-1.030)
== END 2024-06-08 17:55 | disposition home or self-care (01) ==
PROVIDERS: Emergency Provider Emergency Medicine; PCP Family Medicine
DX: K52.9 Noninfective gastroenteritis and colitis, unspecified (principal); Z79.4 Long term (current) use of insulin; F17.210 Nicotine dependence, cigarettes, uncomplicated; E11.40 Type 2 diabetes mellitus with diabetic neuropathy, unspecified; E78.5 Hyperlipidemia, unspecified; I25.10 Atherosclerotic heart disease of native coronary artery without angina pectoris
CPT/HCPCS: 80053; 81001; 83690; 83735; 85025; 99283; Q0164

== ENCOUNTER → 2024-06-20 14:35 | Outpatient (BNVA) | payer MEDICAID, SELFPAY ==
[2023-09-26 14:30] VITALS: BP 113/78; BMI 42.6
== END ==
PROVIDERS: PCP Family Medicine; Visit Provider Emergency Medicine
DX: N39.0 Urinary tract infection, site not specified (principal)
CPT/HCPCS: 81000

== ENCOUNTER 2024-06-24 11:42 | Emergency (ER) | payer MEDICAID, SELFPAY ==
[2023-09-26 14:30] VITALS: BP 113/78; BMI 42.6
[2024-06-24 12:02] VITALS: BP 127/90; PULSE 81; TEMP 36.5; O2SAT 97; BMI 43.2
--- NOTE | 2024-06-24 12:12 | XRR_ITS ---
PROCEDURE INFORMATION: Exam: XR Right Knee Exam date and time: 06/24/2024 12:44 PM Age: 43 years old Clinical indication: Injury or trauma; Fall; Blunt trauma; Prior surgery; Surgery date: 6+ months; Surgery type: Right knee; Additional info: Fall/injury TECHNIQUE: Imaging protocol: Radiologic exam of the right knee. Views: 3 views. Total images: 3 COMPARISON: No relevant prior studies available. FINDINGS: Bones/joints: The patient is status post right knee replacement. Hardware projects in the expected location. Chronic appearing osseous density arising from the superomedial corner of the patella . No definite joint effusion. Soft tissues: Soft tissue calcifications are present in the subcutaneous tissues anterior to the patellar tendon. XR/XR knee RT 3V* [id number] IMPRESSION: 1. No acute appearing fracture identified. 2. Findings consistent with chronic fracture deformity at the upper pole of the patella.
--- NOTE | 2024-06-24 13:37 | W.ED.LOWEXIN ---
HPI - Extremity Injury (Lower) General: Chief Complaint: Extremity Injury, Lower Stated Complaint: R leg injury Time Seen by Provider: 06/24/24 13:13 Source: patient Mode of arrival: ambulatory Limitations: no limitations History of Present Illness: Patient is a 43-year-old female presents to ED today for evaluation of right knee injury that she sustained just earlier today after she accidentally tripped and fell. She states she twisted and then fell directly onto the right knee. She states she is having trouble hearing weight on the extremity/joint due to pain. She denies any other injuries or complaints at this time. Previous total knee replacement. complaint: knee injury Onset (ago): hour(s) Injury: Right: knee Severity: moderate Relieving factors: immobilization Exacerbating factors: weight bearing, movement and palpation Context: fall Associated symptoms: Reports no associated symptoms Other symptoms: none Related Data Home Medications Medication Instructions Recorded Confirmed insulin aspart U-100 100 unit/mL See Rx Instructions .Route .COMPLEX 09/24/23 06/20/24 (3 mL) subcutaneous pen (Novolog FlexPen U-100 Insulin aspart) empagliflozin 25 mg tablet 25 mg PO DAILY 05/29/24 06/20/24 (Jardiance) Previous Rx's Medication Instructions Recorded diabetic supplies, miscellan. #1 ea 08/22/22 glucometer and strips 100 #1 ea 05/28/23 blood sugar diagnostic (Blood #200 ea 08/09/23 Glucose Test strips) pen needle, diabetic 32 gauge x #100 ea 09/05/23 5/32 (Comfort EZ Pen [place]) syringe with needle 6 mL (Monoject #300 ea 09/05/23 Safety Syringes) nystatin 100,000 unit/gram topical 1 applic topical BID #60 grams 10/04/23 powder pen needle, diabetic 31 gauge x #100 ea 10/25/23 5/16 (TechLITE Pen Needle) ondansetron 8 mg disintegrating 8 mg PO Q8H PRN nausea and 10/27/23 tablet vomiting 5 days #15 tabs blood-glucose sensor (Dexcom G7 #3 ea 10/31/23 Sensor device) gabapentin 300 mg capsule See Rx Instructions .Route 11/22/23 .COMPLEX #120 caps blood-glucose meter,continuous #1 ea 12/27/23 (Dexcom G7 Jumpbasting [place]) insulin glargine 100 unit/mL (3 60 unit (0.6 mL) SUBCUT QAM #45 mL 03/26/24 mL) subcutaneous pen (Lantus Solostar U-100 Insulin) atorvastatin 40 mg tablet (Lipitor) 40 mg PO DAILY #90 tabs 04/04/24 CPAP supplies #1 ea 04/24/24 tizanidine 4 mg tablet 4 mg PO TID PRN Muscle Spasm #60 04/24/24 tabs cariprazine 4.5 mg capsule 4.5 mg PO DAILY #30 caps 04/25/24 (Vraylar) citalopram 20 mg tablet 20 mg PO QAM #30 tabs 04/25/24 eszopiclone 3 mg tablet 3 mg PO BEDTIME #30 tabs 04/25/24 tramadol 50 mg tablet 50 mg PO TID PRN pain #90 tabs 05/26/24 tamsulosin 0.4 mg capsule 0.4 mg PO DAILY #20 caps 05/29/24 omeprazole 20 mg capsule,delayed 20 mg PO DAILY #90 caps 05/30/24 release carvedilol 3.125 mg tablet 3.125 mg PO BID #60 tabs 06/09/24 promethazine 25 mg tablet 25 mg PO Q8H PRN nausea and 06/20/24 vomiting #30 tabs prazosin 2 mg capsule 4 mg (2 x 2 mg) PO BEDTIME #60 caps 06/23/24 Allergies Allergy/AdvReac Type Severity Reaction Status Date / Time codeine Allergy Intermediate HALLUCINATI Verified 06/24/24 12:05 ONS latex Allergy Intermediate HIVES Verified 06/24/24 12:05 aspirin Allergy RASH Verified 06/24/24 12:05 oxycodone [From Percocet] Allergy RASH Verified 06/24/24 12:05 topiramate [From Topamax] Allergy RASH Verified 06/24/24 12:05 sumatriptan AdvReac Intermediate SOB; Verified 06/24/24 12:05 WHEEZING; DIZZINESS Review of Systems Musc: Reports: joint pain (R knee); Denies: extremity pain, extremity swelling, joint swelling, joint redness or joint warmth Neuro: Denies: numbness in extremities or sensory changes PFSH ED PFSH: Medical History GERD without esophagitis Calculus of kidney L 4.7mm UVP junction on CT Encounter for chronic pain management tramadol for chronic back pain Pain management contract signed tramadol; 10.9.24 HOMER (obstructive sleep apnea) on BIPAP Diabetic neuropathy associated with type 2 diabetes mellitus Uncontrolled type 2 diabetes mellitus with insulin therapy Facet arthritis, degenerative, lumbar spine Atherosclerosis of [place] coronary artery without angina pectoris Insomnia Urolithiasis Morbid obesity Bipolar 2 disorder Post-traumatic stress disorder, chronic Nicotine dependence, cigarettes, uncomplicated Psychiatric care Major depressive disorder without psychotic features Dyslipidemia Low back pain with sciatica Hypothyroidism Surgical History Hx of percutaneous transluminal coronary angioplasty History of total knee arthroplasty Right--has had 2 TKA--first in [facility]--got infected then had another TKA at [facility] Hx laparoscopic cholecystectomy 03/01/23 Dr. Alarcon Hx of colonoscopy 2009 History of hernia repair umbilical and abdominal R side H/O: hysterectomy w/ BSO; had precancerous cells age 14, then had hyst for menometrorrhagia Hx of appendectomy 2005 Hx of laparoscopic gastric banding 2009 Family History Mother CAD (coronary artery disease) Stroke Father CAD (coronary artery disease) Other Cancer Diabetes Hypertension Social History Smoking and tobacco/nicotine status: current every day tobacco/nicotine user cigarettes Packs smoked per day: 1.5 Years cigarettes smoked: 28 Alcohol intake: never Substance/Drug Use: never Household members: significant other Housing: House Marital status: / Number of children: 0 Current occupational status: employed Current occupation: [employer] Female Reproductive History: Spontaneous abortions: No Physical Exam Const: COMMON NORMALS: no acute distress, no limitations and alert GENERAL APPEARANCE: cooperative NUTRITIONAL APPEARANCE: obese (BMI 43.3) Extremity: COMMON NORMALS: capillary refill normal, no clubbing, cyanosis or edema, no calf tenderness and no pedal edema GENERAL: Yes normal exam except as noted RIGHT LOWER EXTREMITY: Yes knee joint (TTP R anterior knee w/o obvious effusion or bony deformity) Right knee: Yes neurovascular exam (normal) Neuro: COMMON NORMALS: moves all extremities, no focal motor deficits and no sensory deficits noted SENSORIUM/ORIENTATION: Yes alert Course Vital Signs: Vital signs: Vital Signs Temperature 97.7 F 06/24/24 12:02 Pulse Rate 81 06/24/24 12:02 Blood Pressure 127/90 06/24/24 12:02 Pulse Oximetry 97 06/24/24 12:02 Oxygen Delivery Me thod Room Air 06/24/24 12:02 MDM - Extremity Injury (Lower) Medical Decision Making XR unremarkable. Her hardware appears normal. She states she has an YASMIN wrap and crutches she can use at home as needed. Recommend follow-up with PCP in 1 to 2 weeks if symptoms do not seem to be improving. Medical Records I reviewed the patient's medical records. Lab Data Radiology Impressions Knee X-Ray 06/24/24 12:12 IMPRESSION: 1. No acute appearing fracture identified. 2. Findings consistent with chronic fracture deformity at the upper pole of the patella. All radiology interpretation(s) finalized by discharge Discharge Plan Discharge Patient Disposition: Home Clinical Impression: Injury of knee, right Condition: Stable Prescriptions: No Action (DME) diabetic supplies, miscellan. Misc See Rx Instructions .ROUTE .MEDSUPPLY Qty: 1 3RF Rx Instructions: Diabetic shoes with 3 pair of inserts (DME) glucometer and strips 100 See Rx Instructions .Route .MEDSUPPLY Qty: 1 11RF Rx Instructions: check her glucose 3 times a day and adjust sliding scale insulin nystatin 100,000 unit/gram powder 1 applic topical BID Qty: 60 2RF ondansetron 8 mg tablet,disintegrating 8 mg PO Q8H PRN (Reason: nausea and vomiting) 5 Days Qty: 15 0RF Vraylar 4.5 mg capsule 4.5 mg PO DAILY Qty: 30 2RF citalopram 20 mg tablet 20 mg PO QAM Qty: 30 2RF eszopiclone 3 mg tablet 3 mg PO BEDTIME Qty: 30 2RF (DME) Dexcom G7 Sensor Device See Rx Instructions .MEDSUPPLY Qty: 3 12RF Rx Instructions: Change every 10 days; Use as directed to check blood sugar omeprazole 20 mg capsule,delayed release(DR/EC) 20 mg PO DAILY Qty: 90 3RF insulin glargine [Lantus Solostar U-100 Insulin] 100 unit/mL (3 mL) insulin pen 60 unit SUBCUT QAM Qty: 45 0RF promethazine 25 mg tablet 25 mg PO Q8H PRN (Reason: nausea and vomiting) Qty: 30 0RF (DME) Blood Glucose Test Strip See Rx Instructions .MEDSUPPLY Qty: 200 12RF Rx Instructions: Use as directed with glucometer to check blood sugar (DME) Monoject Safety Syringes 6 mL syringe See Rx Instructions .Route Qty: 300 0RF Rx Instructions: Use once a day to inject Lantus. (DME) pen needle, diabetic [Comfort EZ Pen [place]] 32 gauge x 5/32 needle See Rx Instructions .Route Qty: 100 2RF Rx Instructions: Use 3 times a day to inject Novolog (DME) pen needle, diabetic [TechLITE Pen Needle] 31 gauge x 5/16 needle See Rx Instructions .Route Qty: 100 2RF Rx Instructions: As directed gabapentin 300 mg capsule See Rx Instructions .ROUTE .COMPLEX Qty: 120 5RF Dose Instruction: TAKE 1 CAPSULE BY MOUTH THREE TIMES DAILY AT 9 AM, NOON, AND 8 PM Rx Instructions: Take 1 capsule (300mg) by mouth at 9am and 12pm and two capsules (600mg) at bedtime. (DME) Dexcom G7 Jumpbasting [place]aster Misc See Rx Instructions .MEDSUPPLY Qty: 1 0RF Rx Instructions: Use as directed for checking blood sugar atorvastatin [Lipitor] 40 mg tablet 40 mg PO DAILY Qty: 90 2RF tizanidine 4 mg tablet 4 mg PO TID PRN (Reason: Muscle Spasm) Qty: 60 2RF (DME) CPAP supplies See Rx Instructions .Route .MEDSUPPLY Qty: 1 0RF Rx Instructions: As directed tramadol 50 mg tablet 50 mg PO TID PRN (Reason: pain) Qty: 90 3RF Hold Instructions: Resume on 03/06/23. carvedilol 3.125 mg tablet 3.125 mg PO BID Qty: 60 5RF prazosin 2 mg capsule 4 mg PO BEDTIME Qty: 60 2RF insulin aspart U-100 [Novolog FlexPen U-100 Insulin] 100 unit/mL (3 mL) insulin pen See Rx Instructions .ROUTE .COMPLEX Rx Instructions: TAKE PER SLIDING SCALE 3 TIMES DAILY. tamsulosin 0.4 mg capsule 0.4 mg PO DAILY Qty: 20 0RF Jardiance 25 mg tablet 25 mg PO DAILY Rx Instructions: on insulin, failed metformin; uncontrolled Discharge Orders: Discharge ED (Routine); Ordered 06/24/24 Ordered By: Idalmis Gilbert Referrals: Mikaela Hernadez MD [Primary Care Provider] - Activity Restrictions/Additional Instructions: As we discussed, your knee x-ray here was unremarkable. I recommend you ice and elevate the extremity, weightbearing as tolerated, tylenol/motrin as needed and follow up with primary care in 1 to 2 weeks if symptoms are not improving. Stand Alone Forms: Work/School Release Coding Level of Care Code ED Shirring Machine Operator Automatic for Alcides Biggs
[2024-06-24 13:52] VITALS: BP 121/89; PULSE 71; O2SAT 96
== END 2024-06-24 13:54 | disposition home or self-care (01) ==
PROVIDERS: Emergency Provider Physician Assistant; PCP Family Medicine
DX: S89.91XA Unspecified injury of right lower leg, initial encounter (principal); Z79.4 Long term (current) use of insulin; F17.210 Nicotine dependence, cigarettes, uncomplicated; E11.40 Type 2 diabetes mellitus with diabetic neuropathy, unspecified; E78.5 Hyperlipidemia, unspecified; X58.XXXA Exposure to other specified factors, initial encounter
CPT/HCPCS: 73562; 99283

== ENCOUNTER → 2024-07-02 07:48 | Outpatient (BNVA) | payer MEDICAID, SELFPAY ==
[2023-09-26 14:30] VITALS: BP 113/78; BMI 42.6
== END ==
PROVIDERS: PCP Family Medicine; Visit Provider Podiatrist Foot & Ankle Surgery
DX: L60.3 Nail dystrophy (principal); G62.9 Polyneuropathy, unspecified; E11.9 Type 2 diabetes mellitus without complications; Z79.4 Long term (current) use of insulin
CPT/HCPCS: 99203

== ENCOUNTER → 2024-07-29 07:29 | Outpatient (BNVA) | payer MEDICAID, SELFPAY ==
[2023-09-26 14:30] VITALS: BP 113/78; BMI 42.6
== END ==
PROVIDERS: PCP Family Medicine; Visit Provider Podiatrist Foot & Ankle Surgery
DX: L60.3 Nail dystrophy (principal); G62.9 Polyneuropathy, unspecified; E11.9 Type 2 diabetes mellitus without complications; Z79.4 Long term (current) use of insulin; R23.8 Other skin changes; E11.42 Type 2 diabetes mellitus with diabetic polyneuropathy
CPT/HCPCS: 99213

== ENCOUNTER 2024-08-02 14:01 | Emergency (ER) | payer MEDICAID, SELFPAY ==
[2023-09-26 14:30] VITALS: BP 113/78; BMI 42.6
[2024-08-02 14:10] VITALS: BP 138/91; PULSE 92; RESP 16; TEMP 36.6; O2SAT 93; BMI 42.9
--- NOTE | 2024-08-02 14:30 | XRR_ITS ---
PROCEDURE INFORMATION: Exam: XR Left Knee Exam date and time: 08/02/2024 2:57 PM Age: 43 years old Clinical indication: Injury or trauma; Fall; Blunt trauma; Injury details: PT arrives pov from home with complaint of left knee pain, PT states she fell down her steps today and twisted her left knee, PT able to ambulate into triage. TECHNIQUE: Imaging protocol: Radiologic exam of the left knee. Views: 3 views. COMPARISON: No relevant prior studies available. FINDINGS: Bones/joints: No acute fracture or dislocation. Tricompartmental degenerative joint disease. Soft tissues: No radiopaque foreign body. XR/XR knee LT 3V* [id number] IMPRESSION: No acute bony findings.
--- NOTE | 2024-08-02 14:55 | ED_ITS ---
HPI - Extremity Problem General: Chief complaint: Extremity Injury, Lower Stated complaint: fell, knee injury Time Seen by Provider: 08/02/24 14:43 Source: patient Mode of arrival: ambulatory Limitations: no limitations History of Present Illness: 43-year-old female who states that she h ad fell down her steps this morning. She states she had slipped on the rain and twisted her left knee. She states she been having knee pain since then she rates the pain a 8 out of 10 states she not been able to bear weight. Denies any other injuries denies hitting her head. Associated symptoms: Deny chest pain, fever(s) or rash Related Data Home Medications ?Medication ?Instructions ?Recorded ?Confirmed empagliflozin 25 mg tablet 25 mg PO DAILY 05/29/2405/12 (Jardiance) Previous Rx's ?Medication ?Instructions ?Recorded diabetic supplies, miscellan. #1 ea 08/22/22 glucometer and strips 100 #1 ea 05/28/23 blood sugar diagnostic (Blood #200 ea 08/09/23 Glucose Test strips) pen needle, diabetic 32 gauge x #100 ea 09/05/23 (Comfort EZ Pen [place]) syringe with needle 6 mL (Monoject #300 ea 09/05/23 Safety Syringes) nystatin 100,000 unit/gram topical 1 applic topical BI D #60 grams 10/04/23 powder pen needle, diabetic 31 gauge x #100 ea 10/25/23/ (TechLITE Pen Needle) ondansetron 8 mg disintegrating 8 mg PO Q8H PRN nausea and 10/27/23 tablet vomiting 5 days #15 tabs blood-glucose sensor (Dexcom G7 #3 ea 10/31/23 Sensor device) gabapentin 300 mg capsule See Rx Instructions .Route 0 11/22/23 .COMPLEX #120 caps blood-glucose meter,continuous #1 ea 12/27/23 (Dexcom G7 Medical Billing And Coding Specialist) insulin glargine 100 unit/mL (3 60 unit (0.6 mL) SUBCU T QAM #45 mL 03/26/24 mL) subcutaneous pen (Lantus Solostar U-100 Insulin) atorvastatin 40 mg tablet (Lipitor) 40 mg PO DAILY #90 tabs 04/04/24 CPAP supplies #1 ea 04/24/24 eszopiclone 3 mg tablet 3 mg PO BEDTIME #30 tabs 02/08 tramadol 50 mg tablet 50 mg PO TID PRN pain #90 ta bs 05/26/24 tamsulosin 0.4 mg capsule 0.4 mg PO DAILY #20 caps 06/10 omeprazole 20 mg capsule,delayed 20 mg PO DAILY #90 ca ps 05/30/24 release carvedilol 3.125 mg tablet 3.125 mg PO BID #60 tabs promethazine 25 mg tablet 25 mg PO Q8H PRN nausea and 06/20/24 vomiting #30 tabs prazosin 2 mg capsule 4 mg (2 x 2 mg) PO BEDTIME # 60 caps 06/23/24 amoxicillin 875 mg-potassium 1 tab PO BID 7 days #14 t abs 07/23/24 clavulanate 125 mg tablet tizanidine 4 mg tablet 4 mg PO TID PRN Muscle Spasm #60 07/26/24 tabs cariprazine 4.5 mg capsule 4.5 mg PO DAILY #30 caps (Vraylar) citalopram 20 mg tablet 20 mg PO QAM #30 tabs insulin lispro 100 unit/mL 30 unit (0.3 mL) SUBCUT TID #15 mL 07/28/24 subcutaneous pen (Humalog KwikPen (U-100) Insulin) diabetic shoes with 3 inserts #1 ea 07/29/24 naproxen 500 mg tablet (Naprosyn) 500 mg PO BID PRN pa in #20 tabs 08/02/24 Allergies Allergy/AdvReac Type Severity Reaction Status Date / Time codeine Allergy Intermediate HALLUCINATI Verified 07/29/24 07:33 ONS latex Allergy Intermediate HIVES Verified 07/29/24 07:33 aspirin Allergy RASH Verified 07/29/24 07:33 oxycodone (From Percocet) Allergy RASH Verified 07/29/24 07:33 topiramate (From Topamax) Allergy RASH Verified 07/29/24 07:33 sumatriptan AdvReac Intermediate SOB; Verified 07/29/24 07:33 WHEEZING; DIZZINESS Review of Systems Const: Denies: fever(s), chills, body aches or change in appetite ENMT: Denies: throat pain or dental pain Card: Denies: chest pain Resp: Denies: dyspnea GI: Denies: abdominal pain, nausea, vomiting or diarrhea Musc: Reports: extremity pain; Denies: neck pain or back pain Skin/Breast: Denies: rash Neuro: Denies: headache(s) PFSH ED PFSH: Medical History GERD without esophagitis Calculus of kidney L 4.7mm UVP junction on CT Encounter for chronic pain management tramadol for chronic back pain Pain management contract signed tramadol; 10..24 HOMER (obstructive sleep apnea) on BIPAP Diabetic neuropathy associated with type 2 diabetes mellitus Uncontrolled type 2 diabetes mellitus with insulin therapy Facet arthritis, degenerative, lumbar spine Atherosclerosis of [place] coronary artery without angina pectoris Insomnia Urolithiasis Morbid obesity Bipolar 2 disorder Post-traumatic stress disorder, chronic Nicotine dependence, cigarettes, uncomplicated Psychiatric care Major depressive disorder without psychotic features Dyslipidemia Low back pain with sciatica Hypothyroidism Surgical History Hx of percutaneous transluminal coronary angioplasty History of total knee arthroplasty Right--has had 2 TKA--first in [facility]--got infected then had another TKA at [facility][1] Hx laparoscopic cholecystectomy 03/01/23 Dr. Alarcon Hx of colonoscopy 2009 History of hernia repair umbilical and abdominal R side H/O: hysterectomy w/ BSO; had precancerous cells age 14, then had hyst for menometrorrhagia Hx of appendectomy 2005 Hx of laparoscopic gastric banding 2009 Family History Mother CAD (coronary artery disease) Stroke Father CAD (coronary artery disease) Other Cancer Diabetes Hypertension Social History Smoking and tobacco/nicotine status: current every day tobacco/nicotine user cigarettes Packs smoked per day: 1.5 Years cigarettes smoked: 28 Alcohol intake: never Substance/Drug Use: never Household members: significant other Housing: House Marital status: / Number of children: 0 Current occupational status: employed Current occupation: [employer] Female Reproductive History: Spontaneous abortions: No Course Vital Signs: Vital signs: Vital Signs Temperature 97.9 F 08/02/24 14:10 Pulse Rate 92 08/02/24 14:10 Respiratory Rate 16 08/02/24 14:10 Blood Pressure 138/91 08/02/24 14:10 Pulse Oximetry 93 08/02/24 14:10 Oxygen Delivery Me thod Room Air 08/02/24 14:10 MDM - Extremity (Nontraumatic) Medical Decision Making Patient presents here with left knee pain x-ray here shows no fracture likely a sprain will place immobilizer she is to weight-bear as tolerated we will get her crutches we will get her follow-up orthopedics. Medical Records I reviewed the patient's medical records. XR interpretation done by ED provider, pending radiology final review ED provider radiology interpretation(s): xr l knee: no acute fx Discharge Plan Discharge Patient Disposition: Home Clinical Impression: Left knee sprain Condition: Stable Prescriptions: New naproxen [Naprosyn] 500 mg tablet 500 mg PO BID PRN (Reason: pain) Qty: 20 0RF No Action (DME) diabetic supplies, miscellan. Misc See Rx Instructions .ROUTE .MEDSUPPLY Qty: 1 3RF Rx Instructions: Diabetic shoes with 3 pair of inserts (DME) glucometer and strips 100 See Rx Instructions .Route .MEDSUPPLY Qty: 1 11RF Rx Instructions: check her glucose 3 times a day and adjust sliding scale insulin nystatin 100,000 unit/gram powder 1 applic topical BID Qty: 60 2RF ondansetron 8 mg tablet,disintegrating 8 mg PO Q8H PRN (Reason: nausea and vomiting) 5 Days Qty: 15 0RF eszopiclone 3 mg tablet 3 mg PO BEDTIME Qty: 30 2RF (DME) diabetic shoes with 3 inserts See Rx Instructions .Route .MEDSUPPLY Qty: 1 0RF Rx Instructions: As directed to the shoe guys (DME) Dexcom G7 Sensor Device See Rx Instructions .MEDSUPPLY Qty: 3 12RF Rx Instructions: Change every 10 days; Use as directed to check blood sugar omeprazole 20 mg capsule,delayed release(DR/EC) 20 mg PO DAILY Qty: 90 3RF insulin glargine [Lantus Solostar U-100 Insulin] 100 unit/mL (3 mL) insulin pen 60 unit SUBCUT QAM Qty: 45 0RF promethazine 25 mg tablet 25 mg PO Q8H PRN (Reason: nausea and vomiting) Qty: 30 0RF amoxicillin-pot clavulanate 875-125 mg tablet 1 tab PO BID 7 Days Qty: 14 0RF (DME) Blood Glucose Test Strip See Rx Instructions .MEDSUPPLY Qty: 200 12RF Rx Instructions: Use as directed with glucometer to check blood sugar (DME) Monoject Safety Syringes 6 mL syringe See Rx Instructions .Route Qty: 300 0RF Rx Instructions: Use once a day to inject Lantus. (DME) pen needle, diabetic [Comfort EZ Pen [place]] 32 gauge x 5/32 needle See Rx Instructions .Route Qty: 100 2RF Rx Instructions: Use 3 times a day to inject Novolog (DME) pen needle, diabetic [TechLITE Pen Needle] 31 gauge x 5/16 needle See Rx Instructions .Route Qty: 100 2RF Rx Instructions: As directed gabapentin 300 mg capsule See Rx Instructions .ROUTE .COMPLEX Qty: 120 5RF Dose Instruction: TAKE 1 CAPSULE BY MOUTH THREE TIMES DAILY AT 9 AM, NOON, AND 8 PM Rx Instructions: Take 1 capsule (300mg) by mouth at 9am and 12pm and two capsules (600mg) at bedtime. (DME) Dexcom G7 Medical Billing And Coding Specialist Misc See Rx Instructions .MEDSUPPLY Qty: 1 0RF Rx Instructions: Use as directed for checking blood sugar atorvastatin [Lipitor] 40 mg tablet 40 mg PO DAILY Qty: 90 2RF (DME) CPAP supplies See Rx Instructions .Route .MEDSUPPLY Qty: 1 0RF Rx Instructions: As directed tramadol 50 mg tablet 50 mg PO TID PRN (Reason: pain) Qty: 90 3RF carvedilol 3.125 mg tablet 3.125 mg PO BID Qty: 60 5RF prazosin 2 mg capsule 4 mg PO BEDTIME Qty: 60 2RF tizanidine 4 mg tablet 4 mg PO TID PRN (Reason: Muscle Spasm) Qty: 60 2RF Vraylar 4.5 mg capsule 4.5 mg PO DAILY Qty: 30 2RF insulin lispro [Humalog KwikPen Insulin] 100 unit/mL insulin pen 30 unit SUBCUT TID Qty: 15 5RF Rx Instructions: per sliding scale; up to 30 units tid with meals citalopram 20 mg tablet 20 mg PO QAM Qty: 30 2RF tamsulosin 0.4 mg capsule 0.4 mg PO DAILY Qty: 20 0RF Jardiance 25 mg tablet 25 mg PO DAILY Rx Instructions: on insulin, failed metformin; uncontrolled Discharge Orders: Discharge ED (Routine); Ordered 08/02/24 Ordered By: Ajay Coffman Referrals: Porsha Leal MD [Physician] - 4-7 days Mikaela Hernadez MD [Primary Care Provider] - Discharge Diet: Advance as tolerated Discharge Activity: Limit activity as instructed and Use walker/crutches as instructed Patient Instructions: Knee Sprain (ED), Knee Immobilizer (ED) Print Language: Upper Sorbian Coding Level of Care Code ED Manager News for Alcides Biggs
[2024-08-02] MEDS: HYDROcodone-acetaminophen 5-325 mg Tablet 1 TAB PO (15:06)
--- NOTE | 2024-08-05 08:11 | DCPLANNER ---
Message sent to Ortho for follow up-
== END 2024-08-02 15:26 | disposition home or self-care (01) ==
PROVIDERS: Emergency Provider Emergency Medicine; PCP Family Medicine
DX: S83.92XA Sprain of unspecified site of left knee, initial encounter (principal); Z79.4 Long term (current) use of insulin; F17.210 Nicotine dependence, cigarettes, uncomplicated; E78.5 Hyperlipidemia, unspecified; W10.9XXA Fall (on) (from) unspecified stairs and steps, initial encounter
CPT/HCPCS: 29530; 73562; 99283; E0114

== ENCOUNTER → 2024-08-25 09:17 | Outpatient (BNVA) | payer MEDICAID, SELFPAY ==
[2023-09-26 14:30] VITALS: BP 113/78; BMI 42.6
== END ==
PROVIDERS: PCP Family Medicine; Visit Provider Nurse Practitioner
DX: M17.12 Unilateral primary osteoarthritis, left knee (principal); M25.362 Other instability, left knee; Z68.41 Body mass index [BMI] 40.0-44.9, adult
CPT/HCPCS: 73560; 73565; 99204

== ENCOUNTER → 2024-08-26 07:24 | Outpatient (BNVA) | payer MEDICAID, SELFPAY ==
[2023-09-26 14:30] VITALS: BP 113/78; BMI 42.6
== END ==
PROVIDERS: PCP Family Medicine; Visit Provider Podiatrist Foot & Ankle Surgery
DX: E11.42 Type 2 diabetes mellitus with diabetic polyneuropathy (principal); L60.3 Nail dystrophy; G62.9 Polyneuropathy, unspecified; Z79.4 Long term (current) use of insulin
CPT/HCPCS: 99213

== ENCOUNTER 2024-09-05 05:21 | Emergency (ER) | payer MEDICAID, SELFPAY ==
[2023-09-26 14:30] VITALS: BP 113/78; BMI 42.6
[2024-09-05] VITALS (9 sets, daily range): BP systolic 120–146; BP diastolic 72–93; PULSE 65–99; RESP 11–19; TEMP 36.6; O2SAT 91–96; BMI 42.0
--- NOTE | 2024-09-05 05:22 | ECG_ITS ---
[facility] Date: 2024-[facility]-05 Pat Name: Julissa Avalos Department: Room: Gender: Female Child Protective Services Social Worker: : 1980 Requested By: Nilesh Wagner Order Number: [id number] Morales MD: Jae Calzada M.D. Measurements Intervals [place] Rate: 72 P: 78 HI: 195 QRS: 150 QRSD: 86 T: 86 QT: 372 QTc: 409 Interpretive Statements SINUS RHYTHM POSSIBLE RIGHT VENTRICULAR HYPERTROPHY [SOME/ALL OF: PROMINENT R IN V1, LATE TRANSITION, RAD, HAYLEE, SSS] Compared to ECG 05/01/2024 18:46:27 Left-axis deviation no longer present Myocardial infarct finding no longer present Electronically Signed On 09-06-2024 07:42:34 CDT by Jae Calzada M.D. [email or web address]
--- NOTE | 2024-09-05 05:25 | XRR_ITS ---
PROCEDURE INFORMATION: Exam: XR Chest Exam date and time: 09/05/2024 5:26 AM Age: 43 years old Clinical indication: Chest pressure; Prior surgery; Surgery date: 6+ months; Surgery type: Gb; C/O chest pain; Additional info: Cp TECHNIQUE: Imaging protocol: Radiologic exam of the chest. Views: 1 view. COMPARISON: CR XR chest 1V portable [id number] 01/17/2024 2:16 PM FINDINGS: Lungs: Unremarkable. No consolidation. Pleural spaces: Unremarkable. No pleural effusion. No pneumothorax. Heart/Mediastinum: Unremarkable. No cardiomegaly. Bones/joints: Unremarkable. XR/XR chest 1V portable [id number] IMPRESSION: No acute findings.
--- NOTE | 2024-09-05 05:33 | W.ED.CHESTPA ---
Documented by User: Nilesh Wagner MD 09/05/24 19:42 HPI - Chest Pain General: Chief Complaint: Chest Pain Stated Complaint: CP N/V Time Seen by Provider: 09/05/24 05:27 Source: patient and family Mode of arrival: ambulatory Limitations: no limitations History of Present Illness: Patient ride to the ER for chest pain. Reports that woke her up around 2:15 AM and has been persistent and so she presents to the ED here at 5:15 AM. Reports some nausea. The pain was a sharp and pressure sensation substernal and radiating across the left lower chest Related Data Home Medications ?Medication ?Instructions ?Recorded ?Confirmed empagliflozin 25 mg tablet 25 mg PO DAILY 05/29/24 09/05/24 (Jardiance) atorvastatin 40 mg tablet (Lipitor) 40 mg PO QPM 09/05/24 09/05/24 insulin lispro 100 unit/mL See Rx Instructions .Route .COMPLEX 09/05/24 09/05/24 subcutaneous pen (Humalog KwikPen (U-100) Insulin) Previous Rx's ?Medication ?Instructions ?Recorded diabetic supplies, miscellan. #1 ea 08/22/22 glucometer and strips 100 #1 ea 05/28/23 blood sugar diagnostic (Blood #200 ea 08/09/23 Glucose Test strips) pen needle, diabetic 32 gauge x #100 ea 09/05/23 5/32 (Comfort EZ Pen Wendell) syringe with needle 6 mL (Monoject #300 ea 09/05/23 Safety Syringes) pen needle, diabetic 31 gauge x #100 ea 10/25/23 5/16 (TechLITE Pen Needle) blood-glucose sensor (Dexcom G7 #3 ea 10/31/23 Sensor device) gabapentin 300 mg capsule See Rx Instructions .Route 11/22/23 .COMPLEX #120 caps blood-glucose meter,continuous #1 ea 12/27/23 (Dexcom G7 Component Overhaul Operator) insulin glargine 100 unit/mL (3 60 unit (0.6 mL) SUBCUT QAM #45 mL 03/26/24 mL) subcutaneous pen (Lantus Solostar U-100 Insulin) CPAP supplies #1 ea 04/24/24 eszopiclone 3 mg tablet 3 mg PO BEDTIME #30 tabs 04/25/24 tramadol 50 mg tablet 50 mg PO TID PRN pain #90 tabs 05/26/24 omeprazole 20 mg capsule,delayed 20 mg PO DAILY #90 caps 05/30/24 release carvedilol 3.125 mg tablet 3.125 mg PO BID #60 tabs 06/09/24 prazosin 2 mg capsule 4 mg (2 x 2 mg) PO BEDTIME #60 caps 06/23/24 tizanidine 4 mg tablet 4 mg PO TID PRN Muscle Spasm #60 07/26/24 tabs cariprazine 4.5 mg capsule 4.5 mg PO DAILY #30 caps 07/28/24 (Vraylar) citalopram 20 mg tablet 20 mg PO QAM #30 tabs 07/28/24 diabetic shoes with 3 inserts #1 ea 07/29/24 left hinged knee brace #1 ea 08/25/24 meloxicam 7.5 mg tablet 7.5 mg PO DAILY #60 tabs 08/29/24 dulaglutide 0.75 mg/0.5 mL 0.75 mg (0.5 mL) SUBCUT .qwk #1 mL 09/05/24 subcutaneous [facility] fluconazole 100 mg tablet 100 mg PO DAILY #7 tabs 09/05/24 isosorbide mononitrate 30 mg 30 mg PO DAILY #30 tabs 09/05/24 tablet,extended release 24 hr Allergies Allergy/AdvReac Type Severity Reaction Status Date / Time codeine Allergy Intermediate HALLUCINATI Verified 09/05/24 09:40 ONS latex Allergy Intermediate HIVES Verified 09/05/24 09:40 aspirin Allergy RASH Verified 09/05/24 09:40 oxycodone (From Percocet) Allergy RASH Verified 09/05/24 09:40 topiramate (From Topamax) Allergy RASH Verified 09/05/24 09:40 sumatriptan AdvReac Intermediate SOB; Verified 09/05/24 09:40 WHEEZING; DIZZINESS Review of Systems General: Reports: 10 or more systems reviewed and unremarkable except in HPI and below PFSH ED PFSH: Medical History Instability of left knee joint Primary osteoarthritis of left knee GERD without esophagitis Calculus of kidney L 4.7mm UVP junction on CT Encounter for chronic pain management tramadol for chronic back pain Pain management contract signed tramadol; 10.9.24 HOMER (obstructive sleep apnea) on BIPAP Diabetic neuropathy associated with type 2 diabetes mellitus Uncontrolled type 2 diabetes mellitus with insulin therapy Facet arthritis, degenerative, lumbar spine Atherosclerosis of jackson coronary artery without angina pectoris Insomnia Urolithiasis Morbid obesity Bipolar 2 disorder Post-traumatic stress disorder, chronic Nicotine dependence, cigarettes, uncomplicated Psychiatric care Major depressive disorder without psychotic features Dyslipidemia Low back pain with sciatica Hypothyroidism Surgical History Hx of percutaneous transluminal coronary angioplasty History of total knee arthroplasty Right--has had 2 TKA--first in [place]--got infected then had another TKA at [facility] Hx laparoscopic cholecystectomy 03/01/23 Dr. Alarcon Hx of colonoscopy 2009 History of hernia repair umbilical and abdominal R side H/O: hysterectomy w/ BSO; had precancerous cells age 14, then had hyst for menometrorrhagia Hx of appendectomy 2005 Hx of laparoscopic gastric banding 2009 Family History Mother CAD (coronary artery disease) Stroke Father CAD (coronary artery disease) Other Cancer Diabetes Hypertension Social History Smoking and tobacco/nicotine status: current every day tobacco/nicotine user cigarettes Packs smoked per day: 1.5 Years cigarettes smoked: 28 Alcohol intake: never Substance/Drug Use: never Household members: significant other Housing: House Marital status: / Number of children: 0 Current occupational status: employed Current occupation: [employer] Female Reproductive History: Spontaneous abortions: No Physical Exam Const: COMMON NORMALS: no acute distress, patient oriented x3, healthy appearing, alert and well nourished GENERAL APPEARANCE: well kempt and well developed NUTRITIONAL APPEARANCE: obese OTHER: Smell of tobacco smoke in the room so strong it [place] the nares HENMT: COMMON NORMALS: normocephalic, atraumatic, external ears normal and moist oral mucous membranes HEAD & SCALP: normocephalic and atraumatic EXTERNAL EAR: Yes external ears normal Eye: COMMON NORMALS: Equal, round and reactive pupils present, EOMs intact bilaterally and conjunctivae normal CONJUNCTIVA: Yes conjunctivae normal PUPIL: Yes Equal, round and reactive pupils present Neck/C-Spine: COMMON NORMALS: full ROM, no lymphadenopathy and supple Chest: COMMONS NORMALS: normal palpation of entire chest wall CHEST: Yes Symmetrical chest wall rise, No tenderness and No Surgical scars present (Chest) Resp: COMMON NORMALS: normal respiratory effort, No retractions, No use of accessory muscles and clear to auscultation bilaterally AUSCULTATION: clear to auscultation bilaterally Cardio: COMMON NORMALS: regular rate, regular rhythm, S1 normal heart sound present, S2 normal heart sound present, No gallops present (Cardio), No clicks present (Cardio), No murmurs present (Cardio) and No rub (Cardio) RATE: regular rate RHYTHM: regular rhythm HEART SOUNDS: S1 normal heart sound present, S2 normal heart sound present and no murmurs PERIPHERAL PULSES: other (Radial pulses 2+ and symmetric) GI: COMMON NORMALS: Soft to palpation, non-tender and no masses INSPECTION: No abdominal distension PALPATION: Yes Soft to palpation, No Guarding due to palpation present (GI) and No Rebound tenderness present : COMMON NORMALS: Yes no CVA tenderness BLADDER/KIDNEY EXAM: Yes no CVA tenderness Back/Pelvis: COMMON NORMALS: no CVA tenderness Extremity: COMMON NORMALS: normal to inspection, full ROM, capillary refill normal and no clubbing, cyanosis or edema Neuro: COMMON NORMALS: patient oriented x3 SENSORIUM/ORIENTATION: Yes alert Psych: APPEARANCE: Yes well kempt Skin: COMMON NORMALS: no rashes or lesions noted, no wounds, turgor normal and no jaundice GENERAL SKIN EXAM: no rashes or lesions noted and turgor normal Course Vital Signs: Vital signs: Vital Signs Temperature 98 F 09/05/24 05:26 Pulse Rate 73 09/05/24 08:37 Respiratory Rate 17 09/05/24 08:37 Blood Pressure 120/72 09/05/24 08:37 Pulse Oximetry 91 09/05/24 08:37 Oxygen Delivery Me thod Room Air 09/05/24 08:37 MDM - Chest Pain Medical Records I reviewed the patient's medical records. Lab Data 09/05/24 05:45 09/05/24 05:45 Radiology Impressions Chest X-Ray 09/05/24 05:25 IMPRESSION: No acute findings. Abdomen/Pelvis CT 09/05/24 07:12 Impression: No acute intra-abdominal or pelvic abnormalities are seen. Laboratory Results WBC 10.57 10^3/uL (3.29-11.43) 09/05/24 05:45 RBC 5.53 10^6/uL (3.85-5.65) 09/05/24 05:45 Hgb 15.80 g/dL (11.27-16.99) 09/05/24 05:45 Hct 48.3 % (36-47) H 09/05/24 05:45 MCV 87.3 fl (85-98) 09/05/24 05:45 MCH 28.6 pg (27-33) 09/05/24 05:45 MCHC 32.7 g/dL (30-55) 09/05/24 05:45 RDW 13.0 % (12.1-15.1) 09/05/24 05:45 Plt Count 191 10^3/cmm (157-399) 09/05/24 05:45 MPV 12.6 fL (7.4-10.4) H 09/05/24 05:45 Neut % (Auto) 54.9 % 09/05/24 05:45 Lymph % (Auto) 33.4 % 09/05/24 05:45 Harney % (Auto) 6.7 % 09/05/24 05:45 Eos % (Auto) 3.8 % 09/05/24 05:45 Baso % (Auto) 0.5 % 09/05/24 05:45 Neut # (Auto) 5.81 10^3/uL (1.8-7.7) 09/05/24 05:45 Lymph # (Auto) 3.5 10^3/uL (0.8-4.8) 09/05/24 05:45 Harney # (Auto) 0.7 10^3/uL (0.2-0.9) 09/05/24 05:45 Eos # (Auto) 0.4 10^3/uL (0.0-0.8) 09/05/24 05:45 Baso # (Auto) 0.1 10^3/uL (0.0-0.1) 09/05/24 05:45 Nucleated RBC % (auto) 0 % 09/05/24 05:45 Nucleated RBCs # 0.0 /100WBC 09/05/24 05:45 PT 12.50 SECONDS (12.1-14.9) 09/05/24 05:45 INR 0.87 (0.8-1.2) 09/05/24 05:45 APTT 24.9 SECONDS (23.9-36.7) 09/05/24 05:45 Sodium 135 mmol/L (136-145) L 09/05/24 05:45 Potassium 4.1 mmol/L (3.5-5.1) 09/05/24 05:45 Chloride 99 mmol/L (98-107) 09/05/24 05:45 Carbon Dioxide 25 mmol/L (22-29) 09/05/24 05:45 Anion Gap 15.1 (5-19) 09/05/24 05:45 BUN 9 mg/dL (6-20) 09/05/24 05:45 Creatinine 0.6 mg/dL (0.5-0.9) 09/05/24 05:45 GFR Calculation 108.1 mL/min (90-130) 09/05/24 05:45 Glucose 308 mg/dL (65-115) H 09/05/24 05:45 Calculated Osmolality 290 mOsm/kg (285-295) 09/05/24 05:45 Calcium 9.0 mg/dL (8.5-10.5) 09/05/24 05:45 Troponin T Baseline < 6 ng/L (0-10) 09/05/24 05:45 Troponin T 120 Minute 6.00 ng/L (0-10) 09/05/24 07:28 Delta Troponin T 0.32641 ABS# (0-10) 09/05/24 07:28 NT-Pro-B Natriuret Pep 72 pg/mL (0-125) 09/05/24 05:45 Lipase 75 U/L (13-60) H 09/05/24 05:45 EKG Data EKG 1: I personally reviewed and interpreted this EKG as follows: EKG interpretation date: 09/05/24 EKG interpretation time: 05:27 Prior EKG tracings: available for review (Old EKG had a greater left axis deviation) Interpretation: Sinus rhythm, mild artifact rate of 72 PA interval 195. QTc 396 QRS 86. Discharge Plan Discharge Patient Disposition: Home Clinical Impression: Atypical chest pain Condition: Stable Prescriptions: New isosorbide mononitrate 30 mg tablet extended release 24 hr 30 mg PO DAILY Qty: 30 0RF No Action (DME) diabetic supplies, miscellan. Misc See Rx Instructions .ROUTE .MEDSUPPLY Qty: 1 3RF Rx Instructions: Diabetic shoes with 3 pair of inserts (DME) glucometer and strips 100 See Rx Instructions .Route .MEDSUPPLY Qty: 1 11RF Rx Instructions: check her glucose 3 times a day and adjust sliding scale insulin eszopiclone 3 mg tablet 3 mg PO BEDTIME Qty: 30 2RF (DME) diabetic shoes with 3 inserts See Rx Instructions .Route .MEDSUPPLY Qty: 1 0RF Rx Instructions: As directed to the shoe joi fluconazole 100 mg tablet 100 mg PO DAILY Qty: 7 0RF Trulicity 0.75 mg/0.5 mL pen injector 0.75 mg SUBCUT .qwk Qty: 1 0RF (DME) left hinged knee brace See Rx Instructions .Route .MEDSUPPLY Qty: 1 0RF Rx Instructions: As directed. 99 days meloxicam 7.5 mg tablet 7.5 mg PO DAILY Qty: 60 0RF (DME) Dexcom G7 Sensor Device See Rx Instructions .MEDSUPPLY Qty: 3 12RF Rx Instructions: Change every 10 days; Use as directed to check blood sugar omeprazole 20 mg capsule,delayed release(DR/EC) 20 mg PO DAILY Qty: 90 3RF insulin glargine [Lantus Solostar U-100 Insulin] 100 unit/mL (3 mL) insulin pen 60 unit SUBCUT QAM Qty: 45 0RF (DME) Blood Glucose Test Strip See Rx Instructions .MEDSUPPLY Qty: 200 12RF Rx Instructions: Use as directed with glucometer to check blood sugar (DME) Monoject Safety Syringes 6 mL syringe See Rx Instructions .Route Qty: 300 0RF Rx Instructions: Use once a day to inject Lantus. (DME) pen needle, diabetic [Comfort EZ Pen Wendell] 32 gauge x 5/32 needle See Rx Instructions .Route Qty: 100 2RF Rx Instructions: Use 3 times a day to inject Novolog (DME) pen needle, diabetic [TechLITE Pen Needle] 31 gauge x 5/16 needle See Rx Instructions .Route Qty: 100 2RF Rx Instructions: As directed gabapentin 300 mg capsule See Rx Instructions .ROUTE .COMPLEX Qty: 120 5RF Dose Instruction: TAKE 1 CAPSULE BY MOUTH THREE TIMES DAILY AT 9 AM, NOON, AND 8 PM Rx Instructions: Take 1 capsule (300mg) by mouth at 9am and 12pm and two capsules (600mg) at bedtime. (DME) Dexcom G7 Component Overhaul Operator Misc See Rx Instructions .MEDSUPPLY Qty: 1 0RF Rx Instructions: Use as directed for checking blood sugar (DME) CPAP supplies See Rx Instructions .Route .MEDSUPPLY Qty: 1 0RF Rx Instructions: As directed tramadol 50 mg tablet 50 mg PO TID PRN (Reason: pain) Qty: 90 3RF carvedilol 3.125 mg tablet 3.125 mg PO BID Qty: 60 5RF prazosin 2 mg capsule 4 mg PO BEDTIME Qty: 60 2RF tizanidine 4 mg tablet 4 mg PO TID PRN (Reason: Muscle Spasm) Qty: 60 2RF Vraylar 4.5 mg capsule 4.5 mg PO DAILY Qty: 30 2RF citalopram 20 mg tablet 20 mg PO QAM Qty: 30 2RF Jardiance 25 mg tablet 25 mg PO DAILY Rx Instructions: on insulin, failed metformin; uncontrolled atorvastatin [Lipitor] 40 mg tablet 40 mg PO QPM insulin lispro [Humalog KwikPen Insulin] 100 unit/mL insulin pen See Rx Instructions .ROUTE .COMPLEX Rx Instructions: Per sliding scale; up to 30 units three times daily with meals. Discharge Orders: Discharge ED (Routine); Ordered 09/05/24 Ordered By: Tong Owens Referrals: Mikaela Hernadez MD [Primary Care Provider] - Discharge Diet: Usual diet Discharge Activity: Resume usual activity Patient Instructions: Opioid Safety, Pain Management Activity Restrictions/Additional Instructions: Thank you for choosing [facility] for your healthcare needs today. It is very important that you follow up as instructed or that you return to the Emergency Department should you have concerns or if your condition changes or worsens in any way. You were seen in the emergency room with complaint of chest discomfort. Cardiac enzymes are undetectable EKG does not show any acute changes. You had had a stress test and angiogram a year ago and they recommended medical management there was no critical lesions at that time. Continue all your current medications recommend starting isosorbide mononitrate 30 mg once daily and following up with furnace maintenance within the next 1 to 2 weeks. Print Language: Luxembourgish Sign Out Sign Out Data: Patient Sign Out occurred on 09/05/24 at 06:09. Patient's care was discussed, and care was transferred from Nilesh Wagner MD to Tong Owens DO. Coding Level of Care Code ED Sales Representative [employer] for [employer]g Fwd Documented by User: Tong Owens DO 09/05/24 16:03 HPI - Chest Pain General: Chief Complaint: Chest Pain Stated Complaint: CP N/V Time Seen by Provider: 09/05/24 05:27 Related Data Home Medications ?Medication ?Instructions ?Recorded ?Confirmed empagliflozin 25 mg tablet 25 mg PO DAILY 05/29/24 09/05/24 (Jardiance) atorvastatin 40 mg tablet (Lipitor) 40 mg PO QPM 09/05/24 09/05/24 insulin lispro 100 unit/mL See Rx Instructions .Route .COMPLEX 09/05/24 09/05/24 subcutaneous pen (Humalog KwikPen (U-100) Insulin) Previous Rx's ?Medication ?Instructions ?Recorded diabetic supplies, miscellan. #1 ea 08/22/22 glucometer and strips 100 #1 ea 05/28/23 blood sugar diagnostic (Blood #200 ea 08/09/23 Glucose Test strips) pen needle, diabetic 32 gauge x #100 ea 09/05/23 5/32 (Comfort EZ Pen Wendell) syringe with needle 6 mL (Monoject #300 ea 09/05/23 Safety Syringes) pen needle, diabetic 31 gauge x #100 ea 10/25/23 5/16 (TechLITE Pen Needle) blood-glucose sensor (Dexcom G7 #3 ea 10/31/23 Sensor device) gabapentin 300 mg capsule See Rx Instructions .Route 11/22/23 .COMPLEX #120 caps blood-glucose meter,continuous #1 ea 12/27/23 (Dexcom G7 Component Overhaul Operator) insulin glargine 100 unit/mL (3 60 unit (0.6 mL) SUBCUT QAM #45 mL 03/26/24 mL) subcutaneous pen (Lantus Solostar U-100 Insulin) CPAP supplies #1 ea 04/24/24 eszopiclone 3 mg tablet 3 mg PO BEDTIME #30 tabs 04/25/24 tramadol 50 mg tablet 50 mg PO TID PRN pain #90 tabs 05/26/24 omeprazole 20 mg capsule,delayed 20 mg PO DAILY #90 caps 05/30/24 release carvedilol 3.125 mg tablet 3.125 mg PO BID #60 tabs 06/09/24 prazosin 2 mg capsule 4 mg (2 x 2 mg) PO BEDTIME #60 caps 06/23/24 tizanidine 4 mg tablet 4 mg PO TID PRN Muscle Spasm #60 07/26/24 tabs cariprazine 4.5 mg capsule 4.5 mg PO DAILY #30 caps 07/28/24 (Vraylar) citalopram 20 mg tablet 20 mg PO QAM #30 tabs 07/28/24 diabetic shoes with 3 inserts #1 ea 07/29/24 left hinged knee brace #1 ea 08/25/24 meloxicam 7.5 mg tablet 7.5 mg PO DAILY #60 tabs 08/29/24 dulaglutide 0.75 mg/0.5 mL 0.75 mg (0.5 mL) SUBCUT .qwk #1 mL 09/05/24 subcutaneous pen injector (Trulicity) fluconazole 100 mg tablet 100 mg PO DAILY #7 tabs 09/05/24 isosorbide mononitrate 30 mg 30 mg PO DAILY #30 tabs 09/05/24 tablet,extended release 24 hr Allergies Allergy/AdvReac Type Severity Reaction Status Date / Time codeine Allergy Intermediate HALLUCINATI Verified 09/05/24 09:40 ONS latex Allergy Intermediate HIVES Verified 09/05/24 09:40 aspirin Allergy RASH Verified 09/05/24 09:40 oxycodone (From Percocet) Allergy RASH Verified 09/05/24 09:40 topiramate (From Topamax) Allergy RASH Verified 09/05/24 09:40 sumatriptan AdvReac Intermediate SOB; Verified 09/05/24 09:40 WHEEZING; DIZZINESS [facility] ED [facility]: Medical History Instability of left knee joint Primary osteoarthritis of left knee GERD without esophagitis Calculus of kidney L 4.7mm UVP junction on CT Encounter for chronic pain management tramadol for chronic back pain Pain management contract signed tramadol; 10.9.24 HOMER (obstructive sleep apnea) on BIPAP Diabetic neuropathy associated with type 2 diabetes mellitus Uncontrolled type 2 diabetes mellitus with insulin therapy Facet arthritis, degenerative, lumbar spine Atherosclerosis of jackson coronary artery without angina pectoris Insomnia Urolithiasis Morbid obesity Bipolar 2 disorder Post-traumatic stress disorder, chronic Nicotine dependence, cigarettes, uncomplicated Psychiatric care Major depressive disorder without psychotic features Dyslipidemia Low back pain with sciatica Hypothyroidism Surgical History Hx of percutaneous transluminal coronary angioplasty History of total knee arthroplasty Right--has had 2 TKA--first in [facility]--got infected then had another TKA at [facility] Hx laparoscopic cholecystectomy 03/01/23 Dr. Alarcon Hx of colonoscopy 2009 History of hernia repair umbilical and abdominal R side H/O: hysterectomy w/ BSO; had precancerous cells age 14, then had hyst for menometrorrhagia Hx of appendectomy 2005 Hx of laparoscopic gastric banding 2009 Family History Mother CAD (coronary artery disease) Stroke Father CAD (coronary artery disease) Other Cancer Diabetes Hypertension Social History Smoking and tobacco/nicotine status: current every day tobacco/nicotine user cigarettes Packs smoked per day: 1.5 Years cigarettes smoked: 28 Alcohol intake: never Substance/Drug Use: never Household members: significant other Housing: House Marital status: / Number of children: 0 Current occupational status: employed Current occupation: [employer] Vital Signs: Vital signs: Vital Signs Temperature 98 F 09/05/24 05:26 Pulse Rate 73 09/05/24 08:37 Respiratory Rate 17 09/05/24 08:37 Blood Pressure 120/72 09/05/24 08:37 Pulse Oximetry 91 09/05/24 08:37 Oxygen Delivery Me thod Room Air 09/05/24 08:37 MDM - Chest Pain Medical Decision Making Care assumed at change of shift. Cardiac enzymes were negative. EKG did not show any acute changes. Delta troponin did not show significant abnormalities BNP is not elevated lipase was slightly elevated but CT did not show signs of pancreatitis we will discharge patient home and have her follow-up with primary care. She did have an angiogram done within the last year did not show any significant coronary disease Lab Data 09/05/24 05:45 09/05/24 05:45 Radiology Impressions Chest X-Ray 09/05/24 05:25 IMPRESSION: No acute findings. Abdomen/Pelvis CT 09/05/24 07:12 Impression: No acute intra-abdominal or pelvic abnormalities are seen. Laboratory Results WBC 10.57 10^3/uL (3.29-11.43) 09/05/24 05:45 RBC 5.53 10^6/uL (3.85-5.65) 09/05/24 05:45 Hgb 15.80 g/dL (11.27-16.99) 09/05/24 05:45 Hct 48.3 % (36-47) H 09/05/24 05:45 MCV 87.3 fl (85-98) 09/05/24 05:45 MCH 28.6 pg (27-33) 09/05/24 05:45 MCHC 32.7 g/dL (30-55) 09/05/24 05:45 RDW 13.0 % (12.1-15.1) 09/05/24 05:45 Plt Count 191 10^3/cmm (157-399) 09/05/24 05:45 MPV 12.6 fL (7.4-10.4) H 09/05/24 05:45 Neut % (Auto) 54.9 % 09/05/24 05:45 Lymph % (Auto) 33.4 % 09/05/24 05:45 Harney % (Auto) 6.7 % 09/05/24 05:45 Eos % (Auto) 3.8 % 09/05/24 05:45 Baso % (Auto) 0.5 % 09/05/24 05:45 Neut # (Auto) 5.81 10^3/uL (1.8-7.7) 09/05/24 05:45 Lymph # (Auto) 3.5 10^3/uL (0.8-4.8) 09/05/24 05:45 Harney # (Auto) 0.7 10^3/uL (0.2-0.9) 09/05/24 05:45 Eos # (Auto) 0.4 10^3/uL (0.0-0.8) 09/05/24 05:45 Baso # (Auto) 0.1 10^3/uL (0.0-0.1) 09/05/24 05:45 Nucleated RBC % (auto) 0 % 09/05/24 05:45 Nucleated RBCs # 0.0 /100WBC 09/05/24 05:45 PT 12.50 SECONDS (12.1-14.9) 09/05/24 05:45 INR 0.87 (0.8-1.2) 09/05/24 05:45 APTT 24.9 SECONDS (23.9-36.7) 09/05/24 05:45 Sodium 135 mmol/L (136-145) L 09/05/24 05:45 Potassium 4.1 mmol/L (3.5-5.1) 09/05/24 05:45 Chloride 99 mmol/L (98-107) 09/05/24 05:45 Carbon Dioxide 25 mmol/L (22-29) 09/05/24 05:45 Anion Gap 15.1 (5-19) 09/05/24 05:45 BUN 9 mg/dL (6-20) 09/05/24 05:45 Creatinine 0.6 mg/dL (0.5-0.9) 09/05/24 05:45 GFR Calculation 108.1 mL/min (90-130) 09/05/24 05:45 Glucose 308 mg/dL (65-115) H 09/05/24 05:45 Calculated Osmolality 290 mOsm/kg (285-295) 09/05/24 05:45 Calcium 9.0 mg/dL (8.5-10.5) 09/05/24 05:45 Troponin T Baseline < 6 ng/L (0-10) 09/05/24 05:45 Troponin T 120 Minute 6.00 ng/L (0-10) 09/05/24 07:28 Delta Troponin T 0.08891 ABS# (0-10) 09/05/24 07:28 NT-Pro-B Natriuret Pep 72 pg/mL (0-125) 09/05/24 05:45 Lipase 75 U/L (13-60) H 09/05/24 05:45 All radiology interpretation(s) finalized by discharge Discharge Plan Discharge Patient Disposition: Home Clinical Impression: Atypical chest pain Condition: Stable Prescriptions: New isosorbide mononitrate 30 mg tablet extended release 24 hr 30 mg PO DAILY Qty: 30 0RF No Action (DME) diabetic supplies, miscellan. Misc See Rx Instructions .ROUTE .MEDSUPPLY Qty: 1 3RF Rx Instructions: Diabetic shoes with 3 pair of inserts (DME) glucometer and strips 100 See Rx Instructions .Route .MEDSUPPLY Qty: 1 11RF Rx Instructions: check her glucose 3 times a day and adjust sliding scale insulin eszopiclone 3 mg tablet 3 mg PO BEDTIME Qty: 30 2RF (DME) diabetic shoes with 3 inserts See Rx Instructions .Route .MEDSUPPLY Qty: 1 0RF Rx Instructions: As directed to the shoe joi fluconazole 100 mg tablet 100 mg PO DAILY Qty: 7 0RF Trulicity 0.75 mg/0.5 mL pen injector 0.75 mg SUBCUT .qwk Qty: 1 0RF (DME) left hinged knee brace See Rx Instructions .Route .MEDSUPPLY Qty: 1 0RF Rx Instructions: As directed. 99 days meloxicam 7.5 mg tablet 7.5 mg PO DAILY Qty: 60 0RF (DME) Dexcom G7 Sensor Device See Rx Instructions .MEDSUPPLY Qty: 3 12RF Rx Instructions: Change every 10 days; Use as directed to check blood sugar omeprazole 20 mg capsule,delayed release(DR/EC) 20 mg PO DAILY Qty: 90 3RF insulin glargine [Lantus Solostar U-100 Insulin] 100 unit/mL (3 mL) insulin pen 60 unit SUBCUT QAM Qty: 45 0RF (DME) Blood Glucose Test Strip See Rx Instructions .MEDSUPPLY Qty: 200 12RF Rx Instructions: Use as directed with glucometer to check blood sugar (DME) Monoject Safety Syringes 6 mL syringe See Rx Instructions .Route Qty: 300 0RF Rx Instructions: Use once a day to inject Lantus. (DME) pen needle, diabetic [Comfort EZ Pen Wendell] 32 gauge x 5/32 needle See Rx Instructions .Route Qty: 100 2RF Rx Instructions: Use 3 times a day to inject Novolog (DME) pen needle, diabetic [TechLITE Pen Needle] 31 gauge x 5/16 needle See Rx Instructions .Route Qty: 100 2RF Rx Instructions: As directed gabapentin 300 mg capsule See Rx Instructions .ROUTE .COMPLEX Qty: 120 5RF Dose Instruction: TAKE 1 CAPSULE BY MOUTH THREE TIMES DAILY AT 9 AM, NOON, AND 8 PM Rx Instructions: Take 1 capsule (300mg) by mouth at 9am and 12pm and two capsules (600mg) at bedtime. (DME) Dexcom G7 Component Overhaul Operator Misc See Rx Instructions .MEDSUPPLY Qty: 1 0RF Rx Instructions: Use as directed for checking blood sugar (DME) CPAP supplies See Rx Instructions .Route .MEDSUPPLY Qty: 1 0RF Rx Instructions: As directed tramadol 50 mg tablet 50 mg PO TID PRN (Reason: pain) Qty: 90 3RF carvedilol 3.125 mg tablet 3.125 mg PO BID Qty: 60 5RF prazosin 2 mg capsule 4 mg PO BEDTIME Qty: 60 2RF tizanidine 4 mg tablet 4 mg PO TID PRN (Reason: Muscle Spasm) Qty: 60 2RF Vraylar 4.5 mg capsule 4.5 mg PO DAILY Qty: 30 2RF citalopram 20 mg tablet 20 mg PO QAM Qty: 30 2RF Jardiance 25 mg tablet 25 mg PO DAILY Rx Instructions: on insulin, failed metformin; uncontrolled atorvastatin [Lipitor] 40 mg tablet 40 mg PO QPM insulin lispro [Humalog KwikPen Insulin] 100 unit/mL insulin pen See Rx Instructions .ROUTE .COMPLEX Rx Instructions: Per sliding scale; up to 30 units three times daily with meals. Discharge Orders: Discharge ED (Routine); Ordered 09/05/24 Ordered By: Tong Owens Referrals: Mikaela Hernadez MD [Primary Care Provider] - Discharge Diet: Usual diet Discharge Activity: Resume usual activity Patient Instructions: Opioid Safety, Pain Management Activity Restrictions/Additional Instructions: Thank you for choosing [facility] for your healthcare needs today. It is very important that you follow up as instructed or that you return to the Emergency Department should you have concerns or if your condition changes or worsens in any way. You were seen in the emergency room with complaint of chest discomfort. Cardiac enzymes are undetectable EKG does not show any acute changes. You had had a stress test and angiogram a year ago and they recommended medical management there was no critical lesions at that time. Continue all your current medications recommend starting isosorbide mononitrate 30 mg once daily and following up with furnace maintenance within the next 1 to 2 weeks. Print Language: Luxembourgish Sign Out Sign Out Data: Patient Sign Out occurred on 09/05/24 at 06:09. Patient's care was discussed, and care was transferred from Nilesh Wagner MD to Tong Owens DO. Coding Level of Care Code ED Sales Representative Wire Rope for Alcides Biggs
[2024-09-05 05:54] LABS: Basophils # 0.1 10^3/uL (0.0-0.1); Basophils % 0.5 %; Eosinophils # 0.4 10^3/uL (0.0-0.8); Eosinophils % 3.8 %; Hematocrit 48.3 % (36-47); Lymphocytes # 3.5 10^3/uL (0.8-4.8); Lymphocytes % 33.4 %; Mean Corpuscular HGB Conc 32.7 g/dL (30-55); Mean Corpuscular Hemoglobin 28.6 pg (27-33); Mean Corpuscular Volume 87.3 fl (85-98); Mean Platelet Volume 12.6 fL (7.4-10.4); Monocytes # 0.7 10^3/uL (0.2-0.9); Monocytes % 6.7 %; Neutrophils # 5.81 10^3/uL (1.8-7.7); Neutrophils % 54.9 %; Nucleated Red Blood Cells % 0 %; Platelet Count 191 10^3/cmm (157-399); Red Blood Count 5.53 10^6/uL (3.85-5.65); White Blood Count 10.57 10^3/uL (3.29-11.43)
[2024-09-05] MEDS: nitroglycerin 1 gm/inch oint Pkt 0.5 INCH TOPICAL (05:57)
[2024-09-05] MEDS: ondansetron 2 mg/ML SDV 2 mL 4 MG IVP (05:58)
[2024-09-05 06:06] LABS: INR 0.87 (0.8-1.2)
[2024-09-05 06:07] LABS: Partial Thromboplastin Time 24.9 SECONDS (23.9-36.7)
[2024-09-05 06:23] LABS: Anion Gap 15.1 (5-19); Blood Urea Nitrogen 9 mg/dL (6-20); Carbon Dioxide 25 mmol/L (22-29); Chloride 99 mmol/L (98-107); Creatinine Clr Calc Pharmacy 144.4378; Glomerular Filtration Rate 108.1 mL/min (90-130); Glucose 308 mg/dL (65-115); Lipase 75 U/L (13-60); NT Pro B Type Natriuretic Pept 72 pg/mL (0-125); Osmolality Calculated 290 mOsm/kg (285-295); Potassium 4.1 mmol/L (3.5-5.1); Sodium 135 mmol/L (136-145)
[2024-09-05 06:36] LABS: Troponin(5th) Baseline < 6 ng/L (0-10)
--- NOTE | 2024-09-05 07:00 | PC.NURSE ---
THIS NURSE ASSUMES CARE AT 0700.
--- NOTE | 2024-09-05 07:12 | CT_ITS ---
WS: [id number] CT scan of the abdomen and pelvis with IV contrast. Additional two-dimensional coronal and sagittal reconstruction was performed. 09/05/2024 Clinical Data: abd pain, nausea vomiting, elevated lipase Comparison: None. DLP: 1125.[address] scans at [facility] use at least one of these dose optimization techniques: automated exposure control; mA and/or kV adjustment per patient size (includes targeted exams where dose is matched to clinical indication); or iterative reconstruction. Findings: The lower lungs show no nodules, masses or effusions. The liver, spleen, adrenal glands and pancreas are normal. The gallbladder is absent The kidneys show equal bilateral contrast excretion with no cyst or masses. No obstruction or renal calculi are seen. The abdominal aorta is normal in size with minimal calcification in the wall. No appendicitis or diverticulitis is seen. The lap band surrounding the stomach remains in the same position. No bowel obstruction or dilatation is seen there is a moderate amount of fecal material in the colon. The bladder is unremarkable. No inguinal hernia is seen. The bones of the lower thorax, lumbar spine, pelvis, and hips show mild osteoarthritis of the thoracic and lumbar vertebra. There are postsurgical changes in the anterior subcutaneous tissue from lap band and cholecystectomy surgery.. CT/CT abdomen pelvis w con* [id number] Impression: No acute intra-abdominal or pelvic abnormalities are seen.
[2024-09-05] MEDS: iohexol 350 mg/mL 500 mL Btl (per mL) IV (07:44)
[2024-09-05 08:00] LABS: Troponin 5 2HR Delta 0.00001 ABS# (0-10)
== END 2024-09-05 09:21 | disposition home or self-care (01) ==
PROVIDERS: Emergency Medicine; Emergency Provider Family Medicine; PCP Family Medicine
DX: R07.89 Other chest pain (principal); Z79.4 Long term (current) use of insulin; F17.210 Nicotine dependence, cigarettes, uncomplicated; E78.5 Hyperlipidemia, unspecified; E11.40 Type 2 diabetes mellitus with diabetic neuropathy, unspecified
CPT/HCPCS: 71045; 74177; 80048; 83690; 83880; 84484; 85025; 85610; 85730; 93005; 96374; 99285; J2405; J9999

== ENCOUNTER → 2024-09-17 09:30 | Outpatient (BNVA) | payer SELFPAY ==
[2023-09-26 14:30] VITALS: BP 113/78; BMI 42.6
== END ==
PROVIDERS: PCP Family Medicine; Visit Provider Nurse Practitioner
DX: Z79.899 Other long term (current) drug therapy (principal)
CPT/HCPCS: 80061

== ENCOUNTER → 2024-10-13 09:02 | Outpatient (BNVA) | payer MEDICAID, SELFPAY ==
[2024-09-18 15:03] VITALS: BP 126/86; BMI 42.7
== END ==
PROVIDERS: PCP Family Medicine; Visit Provider Nurse Practitioner
DX: M17.12 Unilateral primary osteoarthritis, left knee (principal); M25.362 Other instability, left knee; Z68.41 Body mass index [BMI] 40.0-44.9, adult
CPT/HCPCS: 20610; 99214; J1100; J2795; J3301; J9999

== ENCOUNTER 2024-10-22 23:17 | Observation (INO) | payer MEDICAID, SELFPAY ==
[2024-09-18 15:03] VITALS: BP 126/86; BMI 42.7
[2024-10-22 23:20] VITALS: BP 141/90; PULSE 86; RESP 18; TEMP 36.4; O2SAT 95
[2024-10-22 23:34] LABS: Glucose Point of Care 320 mg/dL (70-110)
--- NOTE | 2024-10-22 23:35 | XRR_ITS ---
PROCEDURE INFORMATION: Exam: XR Chest Exam date and time: 10/22/2024 11:52 PM Age: 43 years old Clinical indication: Other: Dizziness TECHNIQUE: Imaging protocol: Radiologic exam of the chest. Views: 1 view. COMPARISON: CR XR chest 1V portable [id number] 09/05/2024 5:26 AM FINDINGS: Lungs: Unremarkable. No consolidation. Pleural spaces: Unremarkable. No pleural effusion. No pneumothorax. Heart/Mediastinum: Unremarkable. No cardiomegaly. Bones/joints: Unremarkable. XR/XR chest 1V portable [id number] IMPRESSION: No acute findings.
--- NOTE | 2024-10-22 23:35 | CTR_ITS ---
PROCEDURE INFORMATION: Exam: CTA Head With Contrast, Arteriography Exam date and time: 10/22/2024 11:48 PM Age: 43 years old Clinical indication: Stroke-like symptoms; Dizziness/giddiness TECHNIQUE: Imaging protocol: Computed tomographic angiography of the head with contrast. Exam focused on the arteries. 3D rendering (Not supervised by radiologist): MIP and/or 3D reconstructed images were created by the technologist. Radiation optimization: All CT scans at this facility use at least one of these dose optimization techniques: automated exposure control; mA and/or kV adjustment per patient size (includes targeted exams where dose is matched to clinical indication); or iterative reconstruction. Contrast material: OMNI 350; Contrast volume: 100 ml; Contrast route: INTRAVENOUS (IV); COMPARISON: CT head thrombolytic [id number] 10/22/2024 11:44 PM RADIATION DOSE METRICS: Total DLP (mGy-cm): 626.5 FINDINGS: ANTERIOR CIRCULATION: Right internal carotid artery: Intracranial segment is patent with no significant stenosis. No aneurysm. Right middle cerebral artery: No occlusion or significant stenosis. No aneurysm. Right anterior cerebral artery: No occlusion or significant stenosis. No aneurysm. Left internal carotid artery: Intracranial segment is patent with no significant stenosis. No aneurysm. Left middle cerebral artery: No occlusion or significant stenosis. No aneurysm. Left anterior cerebral artery: No occlusion or significant stenosis. No aneurysm. POSTERIOR CIRCULATION: Right vertebral artery: No occlusion or significant stenosis. No aneurysm. Left vertebral artery: No occlusion or significant stenosis. No aneurysm. Basilar artery: No occlusion or significant stenosis. No aneurysm. Right posterior cerebral artery: No occlusion or significant stenosis. No aneurysm. Left posterior cerebral artery: There is origin of the left posterior cerebral artery. Brain: No definite mass, mass effect, or midline shift. Cerebral ventricles: No ventriculomegaly. Bones/joints: Unremarkable. No acute fracture. Soft tissues: Unremarkable. PROCEDURE INFORMATION: Exam: CTA Neck With Contrast Exam date and time: 10/22/2024 11:48 PM Age: 43 years old Clinical indication: Stroke-like symptoms; Dizziness/giddiness TECHNIQUE: Imaging protocol: Computed tomographic angiography of the neck with contrast. Exam focused on the cervical segments of the vasculature. 3D rendering (Not supervised by radiologist): MIP and/or 3D reconstructed images were created by the technologist. Radiation optimization: All CT scans at this facility use at least one of these dose optimization techniques: automated exposure control; mA and/or kV adjustment per patient size (includes targeted exams where dose is matched to clinical indication); or iterative reconstruction. Contrast material: OMNI 350; Contrast volume: 100 ml; Contrast route: INTRAVENOUS (IV); COMPARISON: CT head thrombolytic [id number] 10/22/2024 11:44 PM RADIATION DOSE METRICS: Total DLP (mGy-cm): 626.5 FINDINGS: Right common carotid artery: No stenosis. No dissection or occlusion. Right internal carotid artery: No stenosis of the extracranial segment. No dissection or occlusion. Right external carotid artery: No occlusion or stenosis of the origin. Left common carotid artery: No stenosis. No dissection or occlusion. Left internal carotid artery: No stenosis of the extracranial segment. No dissection or occlusion. Left external carotid artery: No occlusion or stenosis of the origin. Right vertebral artery: No stenosis. No dissection or occlusion. Left vertebral artery: No stenosis. No dissection or occlusion. Soft tissues: Normal. No significant soft tissue swelling. Bones/joints: No acute fracture. CT/CT angio headneck* [id number] IMPRESSION: There is no evidence of intracranial large vessel occlusion or aneurysm. IMPRESSION: No stenosis or occlusion. REFERENCES: NASCET CRITERIA. The degree of stenosis in the cervical segment of the internal carotid artery is based on NASCET criteria. Normal is no stenosis. Mild is less than 50% stenosis. Moderate is 50-69% stenosis. Severe is 70% to 99% stenosis. Total occlusion is no detectable patent lumen.
--- NOTE | 2024-10-22 23:37 | CTR_ITS ---
PROCEDURE INFORMATION: Exam: CT Head Without Contrast Exam date and time: 10/22/2024 11:44 PM Age: 43 years old Clinical indication: Stroke-like symptoms; Dizziness/giddiness; Additional info: Symptoms of acute stroke TECHNIQUE: Imaging protocol: Computed tomography of the head without contrast. Radiation optimization: All CT scans at this facility use at least one of these dose optimization techniques: automated exposure control; mA and/or kV adjustment per patient size (includes targeted exams where dose is matched to clinical indication); or iterative reconstruction. Other technique: STROKE PROTOCOL was implemented. COMPARISON: CT head wo con* [id number] 01/17/2024 1:55 PM RADIATION DOSE METRICS: Total DLP (mGy-cm): 1066 FINDINGS: Brain: Normal. No hemorrhage. Unremarkable white matter. No mass effect. Cerebral ventricles: No ventriculomegaly. Paranasal sinuses: Visualized sinuses are unremarkable. No fluid levels. Mastoid air cells: Visualized mastoid air cells are well aerated. Bones: Unremarkable. No acute fracture. Soft tissues: Unremarkable. CT/CT head thrombolytic [id number] IMPRESSION: No acute intracranial abnormality. ASSESSMENT: ASPECTS ([place] Stroke Program Early CT Score) is 10.
--- NOTE | 2024-10-22 23:37 | ECG_ITS ---
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 Measurements Intervals [place] Rate: 75 P: 76 LA: 187 QRS: -87 QRSD: 93 T: 81 QT: 374 QTc: 418 Interpretive Statements SINUS RHYTHM INDETERMINATE AXIS POSSIBLE ANTERIOR MYOCARDIAL INFARCTION , PROBABLY OLD [30 ms Q WAVE IN V3/V4, OR R < 0.2 mV IN V4] No previous ECG available for comparison Electronically Signed On 10-22-2024 23:47:56 CDT by Maurisio Andrade M.D. [email or web address] [email or web address]
[2024-10-22 23:50] LABS: Basophils # 0.1 10^3/uL (0.0-0.1); Basophils % 0.6 %; Eosinophils # 0.4 10^3/uL (0.0-0.8); Eosinophils % 2.8 %; Hematocrit 51.5 % (36-47); Lymphocytes # 3.8 10^3/uL (0.8-4.8); Lymphocytes % 26.9 %; Mean Corpuscular HGB Conc 33.6 g/dL (30-55); Mean Corpuscular Hemoglobin 29.1 pg (27-33); Mean Corpuscular Volume 86.6 fl (85-98); Mean Platelet Volume 12.4 fL (7.4-10.4); Monocytes # 0.9 10^3/uL (0.2-0.9); Monocytes % 6.3 %; Neutrophils # 8.98 10^3/uL (1.8-7.7); Nucleated Red Blood Cells % 0 %; Platelet Count 204 10^3/cmm (157-399); Red Blood Count 5.95 10^6/uL (3.85-5.65); Red Cell Distribution Width 12.8 % (12.1-15.1); White Blood Count 14.24 10^3/uL (3.29-11.43)
[2024-10-23] VITALS (18 sets, daily range): BP systolic 100–148; BP diastolic 63–92; PULSE 62–82; RESP 15–19; TEMP 36.4–36.9; O2SAT 90–98; BMI 42.7
[2024-10-23 00:03] LABS: INR 0.87 (0.8-1.2); Partial Thromboplastin Time 23.7 SECONDS (23.9-36.7)
[2024-10-23 00:06] LABS: Alanine Aminotransferase 13 U/L (0-33); Alkaline Phosphatase 134 U/L (35-105); Aspartate Amino Transferase 12 U/L (0-32); Blood Urea Nitrogen 11 mg/dL (6-20); Calcium 9.3 mg/dL (8.5-10.5); Carbon Dioxide 24 mmol/L (22-29); Chloride 96 mmol/L (98-107); Creatinine Clr Calc Pharmacy 144.0991; Globulin 3.4 g/dL (1.3-4.6); Glomerular Filtration Rate 108.1 mL/min (90-130); Glucose 294 mg/dL (65-115); Osmolality Calculated 286 mOsm/kg (285-295); Sodium 133 mmol/L (136-145); Total Bilirubin 0.3 mg/dL (0.15-1.2); Total Protein 7.4 g/dL (6.6-8.7)
[2024-10-23 00:13] LABS: Anion Gap 16.9 (5-19); Potassium 3.9 mmol/L (3.5-5.1)
[2024-10-23 00:17] LABS: Bilirubin Urine Negative (Negative); Blood Urine Negative (Negative); Glucose Urine UA 3+ (Normal); Ketones Urine Negative (Negative); Leukocyte Esterase Urine Negative (Negative); Nitrate Urine Negative (Negative); Protein Urine Negative (Negative); Urine Appearance Clear (CLEAR); Urine Color Yellow (Yellow); pH Urine 6.5 (5-7)
[2024-10-23 00:21] LABS: Add Urine Microscopic? YES; Bacteria Urine None Seen /hpf; Hyaline Casts Urine 0-4 /lpf; RBC Urine 0-2 /hpf (0-2); Squamous Epithelial Cell Urine 0-5 /hpf (0-5); WBC Urine 0-5 /hpf (0-5)
[2024-10-23] MEDS: iohexol 350 mg/mL 500 mL Btl (per mL) IV (00:22)
[2024-10-23] MEDS: meclizine 25 mg tablet PO ×2 (00:33→12:23)
--- NOTE | 2024-10-23 00:34 | PM.HP ---
Providers/Chief Complaint Primary Care Provider: Mikaela Hernadez MD Chief Complaint: Dizzy itchy all over sweaty confused History of Present Illness Julissa Avalos is a 43 year old female with a past medical history significant for osteoarthritis, GERD, diabetes mellitus, diabetic neuropathy, bipolar 2 disorder, PTSD, nicotine use, depression, and multiple other comorbidities who presents emergency department with headache and vertigo with onset about 4 PM today. She endorses associated headache which is different than her usual headaches/migraines. Movement worsens symptoms. Denies other alleviating or aggravating factors. Reports cough about a week ago. Denies other recent infectious symptoms. Denies history of known TIA or strokes. Denies similar prior episodes. In the emergency department, vital signs were fairly unremarkable. CT head as well as CT head and neck angio were negative for acute intracranial findings. Her symptoms persisted concerning for possible posterior stroke pathology. Patient discussed with the ED provider who reportedly discussed patient with neurology Dr. Abraham. NIH score of 1. She presents for observation admission. Review of Systems Narrative: A complete review of systems was obtained and is negative except as stated in HPI. Medications/Allergies Home Medications ?Medication ?Instructions ?Recorded ?Confirmed ?Last Taken ?Type diabetic supplies, miscellan. #1 ea 08/22/22 10/13/24 Unknown Rx glucometer and strips 100 #1 ea 05/28/23 10/13/24 Unknown Rx blood sugar diagnostic (Blood #200 ea 08/09/23 10/13/24 Unknown Rx Glucose Test strips) pen needle, diabetic 32 gauge x #100 ea 09/05/23 10/13/24 Unknown Rx 5/32 (Comfort EZ Pen [place]) syringe with needle 6 mL (Monoject #300 ea 09/05/23 10/13/24 Unknown Rx Safety Syringes) pen needle, diabetic 31 gauge x #100 ea 10/25/23 10/13/24 Unknown Rx 5/16 (TechLITE Pen Needle) blood-glucose sensor (Dexcom G7 #3 ea 10/31/23 10/13/24 Unknown Rx Sensor device) gabapentin 300 mg capsule See Rx Instructions .Route 11/22/23 10/13/24 09/04/24 Rx .COMPLEX #120 caps blood-glucose meter,continuous #1 ea 12/27/23 10/13/24 Unknown Rx (Dexcom G7 Chemical Equipment Sales Engineer) insulin glargine 100 unit/mL (3 60 unit (0.6 mL) SUBCUT QAM #45 mL 03/26/24 10/13/24 09/04/24 Rx mL) subcutaneous pen (Lantus Solostar U-100 Insulin) CPAP supplies #1 ea 04/24/24 10/13/24 Unknown Rx omeprazole 20 mg capsule,delayed 20 mg PO DAILY #90 caps 05/30/24 10/13/24 09/04/24 Rx release carvedilol 3.125 mg tablet 3.125 mg PO BID #60 tabs 06/09/24 10/13/24 09/04/24 Rx diabetic shoes with 3 inserts #1 ea 07/29/24 10/13/24 Unknown Rx left hinged knee brace #1 ea 08/25/24 10/13/24 Unknown Rx meloxicam 7.5 mg tablet 7.5 mg PO DAILY #60 tabs 08/29/24 10/13/24 09/04/24 Rx atorvastatin 40 mg tablet (Lipitor) 40 mg PO QPM 09/05/24 10/13/24 09/04/24 History fluconazole 100 mg tablet 100 mg PO DAILY #7 tabs 09/05/24 10/13/24 Unknown Rx insulin lispro 100 unit/mL See Rx Instructions .Route .COMPLEX 09/05/24 10/13/24 09/04/24 History subcutaneous pen (Humalog KwikPen (U-100) Insulin) isosorbide mononitrate 30 mg 30 mg PO DAILY #30 tabs 09/05/24 10/13/24 Unknown Rx tablet,extended release 24 hr citalopram 20 mg tablet 20 mg PO QAM #30 tabs 09/17/24 10/13/24 Unknown Rx prazosin 2 mg capsule 4 mg (2 x 2 mg) PO BEDTIME #60 caps 09/17/24 10/13/24 Unknown Rx tramadol 50 mg tablet 50 mg PO TID PRN pain #90 tabs 09/22/24 10/13/24 Unknown Rx empagliflozin 25 mg tablet 25 mg PO DAILY #90 tabs 09/24/24 10/13/24 Unknown Rx (Jardiance) tizanidine 4 mg tablet 4 mg PO TID PRN Muscle Spasm #60 09/24/24 10/13/24 Unknown Rx tabs dulaglutide 0.75 mg/0.5 mL 0.75 mg (0.5 mL) SUBCUT .qwk #2 mL 10/01/24 10/13/24 Unknown Rx subcutaneous pen injector (Trulicity) dulaglutide 0.75 mg/0.5 mL mg SUBCUT 10/13/24 10/13/24 Unknown History subcutaneous pen injector (Trulicity) quetiapine 100 mg tablet (Seroquel) 100 mg PO .HS #30 tabs 10/17/24 Unknown Rx Allergies Allergy/AdvReac Type Severity Reaction Status Date / Time codeine Allergy Intermediate HALLUCINATI Verified 10/22/24 23:27 ONS latex Allergy Intermediate HIVES Verified 10/22/24 23:27 aspirin Allergy RASH Verified 10/22/24 23:27 oxycodone (From Percocet) Allergy RASH Verified 10/22/24 23:27 topiramate (From Topamax) Allergy RASH Verified 10/22/24 23:27 sumatriptan AdvReac Intermediate SOB; Verified 10/22/24 23:27 WHEEZING; DIZZINESS PFSH Acute PFSH: Medical History On combination antipsychotic drug therapy Instability of left knee joint Primary osteoarthritis of left knee GERD without esophagitis Calculus of kidney L 4.7mm UVP junction on CT Encounter for chronic pain management tramadol for chronic back pain Pain management contract signed tramadol; 10.9.24 HOMER (obstructive sleep apnea) on BIPAP Diabetic neuropathy associated with type 2 diabetes mellitus Uncontrolled type 2 diabetes mellitus with insulin therapy Facet arthritis, degenerative, lumbar spine Atherosclerosis of [place] coronary artery without angina pectoris Insomnia Urolithiasis Morbid obesity Bipolar 2 disorder Post-traumatic stress disorder, chronic Nicotine dependence, cigarettes, uncomplicated Psychiatric care Major depressive disorder without psychotic features Dyslipidemia Low back pain with sciatica Hypothyroidism Surgical History Hx of percutaneous transluminal coronary angioplasty History of total knee arthroplasty Right--has had 2 TKA--first in [facility]--got infected then had another TKA at [facility] Hx laparoscopic cholecystectomy 03/01/23 Dr. Alarcon Hx of colonoscopy 2009 History of hernia repair umbilical and abdominal R side H/O: hysterectomy w/ BSO; had precancerous cells age 14, then had hyst for menometrorrhagia Hx of appendectomy 2005 Hx of laparoscopic gastric banding 2009 Family History Mother CAD (coronary artery disease) Stroke Father CAD (coronary artery disease) Other Cancer Diabetes Hypertension Social History Smoking and tobacco/nicotine status: current every day tobacco/nicotine user cigarettes Packs smoked per day: 1.5 Years cigarettes smoked: 28 Alcohol intake: never Substance/Drug Use: never Household members: significant other Housing: House Marital status: / Number of children: 0 Current occupational status: employed 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 Appears fatigued but pleasant. Head: Normocephalic. Atraumatic. EOM intact. Left TM unremarkable. Right TM with erythema. No fluid observed behind TM. Mild cerumen in both external auditory canals. Neck: No JVD. Cardiovascular: RRR. No gallops. No murmurs. Lungs: Clear to auscultation, no use of accessory muscles, no crackles or wheezes. Skin: No jaundice. No rashes. Abdomen: Normal bowel sounds, abdomen soft and nontender. Extremities: No cyanosis or clubbing. Musculoskeletal: No swollen or erythematous joints. Neurological: Moves all 4 extremities. No myoclonus. Data 10/22/24 23:48 10/22/24 23:48 A&P Assessment and plan (1) Leukocytosis: (2) Vertigo: (3) Benign hypertension: (4) Insulin dependent type 2 diabetes mellitus: (5) Hypothyroidism: (6) Peripheral neuropathy: Plan Severe vertigo - Posterior stroke within differential - No history of TIA or stroke, patient does have multiple risk factors - CT head, CTA head and neck negative for acute findings - MRI head ordered - Telemetry monitoring - Echocardiogram if MRI reveals stroke - Trial of Antivert as needed - Benzodiazepine for refractory vertigo - Fall precautions - Therapy evaluation Leukocytosis - Monitor evidence of infection - Urinalysis and chest x-ray reviewed - Check procalcitonin Type 2 diabetes mellitus - Continue Lantus at reduced home dose - High-dose sliding scale correction - Hold other home meds due to nonformulary status - Avoid hypoglycemia Diabetic neuropathy - Continue gabapentin Hypertension - Continue Coreg Hyperlipidemia - Continue statin History of bipolar disorder History of PTSD - Continue home medications DVT prophylaxis: Lovenox CODE STATUS: Full code PDMP PDMP Reviewed: Not Reviewed Attestations Medical Necessity Statement*: Patient presents with severe vertigo associated with headache concerning for possible posterior stroke with expected hospitalization not to cross 2 midnights for further workup and treatment. Coding Level of Care Code Acute Code for Chg Fwd Diagnoses Leukocytosis D72.829 Vertigo R42 Benign hypertension I10 Insulin dependent type 2 diabetes mellitus E11.9; Z79.4 Acquired hypothyroidism E03.9 Hypothyroidism type: acquired Peripheral neuropathy G62.9
[2024-10-23 00:35] LABS: Specific Gravity, Urine 1.045 (1.005-1.030)
[2024-10-23 00:38] LABS: Amphetamines Screen Urine Negative (Negative); Barbiturates Screen Urine Negative (Negative); Benzodiazepines Screen Urine Negative (Negative); Cocaine Screen Urine Negative (Negative); Opiate Screen Urine Negative (Negative); PCP Screen Urine Negative (Negative); THC Screen Urine Negative (Negative)
--- NOTE | 2024-10-23 00:59 | W.ED.DIZZY ---
HPI - Dizziness General: Chief Complaint: Dizziness Stated Complaint: Dizzy itchy all over sweaty confused Time Seen by Provider: 10/22/24 23:31 History of Present Illness: HPI Narrative: 43-year-old female who presents emerged part with complaint of vertigo. She states that the whole room is spinning on her and she is unable to keep her balance. She also complaining of left lower extremity numbness. She denies any weakness. She states that she has been nauseated and sweaty. States symptoms started at 4 PM. Related Data Home Medications ?Medication ?Instructions ?Recorded ?Confirmed atorvastatin 40 mg tablet (Lipitor) 40 mg PO QPM 09/05/24 10/13/24 insulin lispro 100 unit/mL See Rx Instructions .Route .COMPLEX 09/05/24 10/13/24 subcutaneous pen (Humalog KwikPen (U-100) Insulin) dulaglutide 0.75 mg/0.5 mL mg SUBCUT 10/13/24 10/13/24 subcutaneous pen injector (TrulicSnapdeal) Previous Rx's ?Medication ?Instructions ?Recorded diabetic supplies, miscellan. #1 ea 08/22/22 glucometer and strips 100 #1 ea 05/28/23 blood sugar diagnostic (Blood #200 ea 08/09/23 Glucose Test strips) pen needle, diabetic 32 gauge x #100 ea 09/05/23 5/32 (Comfort EZ Pen [place]) syringe with needle 6 mL (Monoject #300 ea 09/05/23 Safety Syringes) pen needle, diabetic 31 gauge x #100 ea 10/25/23 5/16 (TechLITE Pen Needle) blood-glucose sensor (Dexcom G7 #3 ea 10/31/23 Sensor device) gabapentin 300 mg capsule See Rx Instructions .Route 11/22/23 .COMPLEX #120 caps blood-glucose meter,continuous #1 ea 12/27/23 (Dexcom G7 Education Sales Consultant) insulin glargine 100 unit/mL (3 60 unit (0.6 mL) SUBCUT QAM #45 mL 03/26/24 mL) subcutaneous pen (Lantus Solostar U-100 Insulin) CPAP supplies #1 ea 04/24/24 omeprazole 20 mg capsule,delayed 20 mg PO DAILY #90 caps 05/30/24 release carvedilol 3.125 mg tablet 3.125 mg PO BID #60 tabs 06/09/24 diabetic shoes with 3 inserts #1 ea 07/29/24 left hinged knee brace #1 ea 08/25/24 meloxicam 7.5 mg tablet 7.5 mg PO DAILY #60 tabs 08/29/24 fluconazole 100 mg tablet 100 mg PO DAILY #7 tabs 09/05/24 isosorbide mononitrate 30 mg 30 mg PO DAILY #30 tabs 09/05/24 tablet,extended release 24 hr citalopram 20 mg tablet 20 mg PO QAM #30 tabs 09/17/24 prazosin 2 mg capsule 4 mg (2 x 2 mg) PO BEDTIME #60 caps 09/17/24 tramadol 50 mg tablet 50 mg PO TID PRN pain #90 tabs 09/22/24 empagliflozin 25 mg tablet 25 mg PO DAILY #90 tabs 09/24/24 (Jardiance) tizanidine 4 mg tablet 4 mg PO TID PRN Muscle Spasm #60 09/24/24 tabs dulaglutide 0.75 mg/0.5 mL 0.75 mg (0.5 mL) SUBCUT .qwk #2 mL 10/01/24 subcutaneous pen injector (Addictive) quetiapine 100 mg tablet (Seroquel) 100 mg PO .HS #30 tabs 10/17/24 Allergies Allergy/AdvReac Type Severity Reaction Status Date / Time codeine Allergy Intermediate HALLUCINATI Verified 10/22/24 23:27 ONS latex Allergy Intermediate HIVES Verified 10/22/24 23:27 aspirin Allergy RASH Verified 10/22/24 23:27 oxycodone (From Percocet) Allergy RASH Verified 10/22/24 23:27 topiramate (From Topamax) Allergy RASH Verified 10/22/24 23:27 sumatriptan AdvReac Intermediate SOB; Verified 10/22/24 23:27 WHEEZING; DIZZINESS FOR[facility]LY [facility] ED PFSH: Medical History On combination antipsychotic drug therapy Instability of left knee joint Primary osteoarthritis of left knee GERD without esophagitis Calculus of kidney L 4.7mm UVP junction on CT Encounter for chronic pain management tramadol for chronic back pain Pain management contract signed tramadol; 10.9.24 HOMER (obstructive sleep apnea) on BIPAP Diabetic neuropathy associated with type 2 diabetes mellitus Uncontrolled type 2 diabetes mellitus with insulin therapy Facet arthritis, degenerative, lumbar spine Atherosclerosis of [place] coronary artery without angina pectoris Insomnia Urolithiasis Morbid obesity Bipolar 2 disorder Post-traumatic stress disorder, chronic Nicotine dependence, cigarettes, uncomplicated Psychiatric care Major depressive disorder without psychotic features Dyslipidemia Low back pain with sciatica Hypothyroidism Surgical History Hx of percutaneous transluminal coronary angioplasty History of total knee arthroplasty Right--has had 2 TKA--first in [facility]--got infected then had another TKA at [facility] Hx laparoscopic cholecystectomy 03/01/23 Dr. Alarcon Hx of colonoscopy 2009 History of hernia repair umbilical and abdominal R side H/O: hysterectomy w/ BSO; had precancerous cells age 14, then had hyst for menometrorrhagia Hx of appendectomy 2005 Hx of laparoscopic gastric banding 2009 Family History Mother CAD (coronary artery disease) Stroke Father CAD (coronary artery disease) Other Cancer Diabetes Hypertension Social History Smoking and tobacco/nicotine status: current every day tobacco/nicotine user cigarettes Packs smoked per day: 1.5 Years cigarettes smoked: 28 Alcohol intake: never Substance/Drug Use: never Household members: significant other Housing: House Marital status: / Number of children: 0 Current occupational status: employed Current occupation: [employer] Female Reproductive History: Spontaneous abortions: No Physical Exam Const: COMMON NORMALS: no acute distress, average body habitus, patient oriented x3, no limitations, healthy appearing, alert and well nourished Neuro: COMMON NORMALS: patient oriented x3, CN's II-XII intact bilaterally, moves all extremities and no focal motor deficits; negative for no sensory deficits noted (Decree sensation of the left lower extremity) SENSORIUM/ORIENTATION: Yes alert OTHER: Patient with vertigo that is reproducible with movement of the head but it is not fatigable and it is not lateralizing to one side versus the other. She has equal vertigo with movement of the head bilaterally. She also has continued vertigo with holding the head still. Course Vital Signs: Vital signs: Vital Signs Temperature 97.6 F 10/22/24 23:20 Pulse Rate 75 10/23/24 00:52 Respiratory Rate 18 10/22/24 23:20 Blood Pressure 135/88 10/23/24 00:52 Pulse Oximetry 94 10/23/24 00:52 Oxygen Delivery Me thod Room Air 10/23/24 00:08 MDM - Dizziness Medical Decision Making Patient presents emerged part with complaint of dizziness and vertigo as well as left lower extremity numbness. States symptoms started about 8 hours ago[address] Initial head CT and CTA of the head and neck were negative. Patient is not a thrombolytic candidate based upon time of onset of symptoms as well as CVA is not clear-cut at this time. Patient to be admitted to the hospitalist for further evaluation and treatment. Discussed with neurology who will consult. Patient not given aspirin due to allergy. Did give patient Antivert, however did not change much of her symptoms. Lab Data 10/22/24 23:48 10/22/24 23:48 Radiology Impressions Chest X-Ray 10/22/24 23:35 IMPRESSION: No acute findings. Head/Neck CTA 10/22/24 23:35 IMPRESSION: There is no evidence of intracranial large vessel occlusion or aneurysm. IMPRESSION: No stenosis or occlusion. REFERENCES: NASCET CRITERIA. The degree of stenosis in the cervical segment of the internal carotid artery is based on NASCET criteria. Normal is no stenosis. Mild is less than 50% stenosis. Moderate is 50-69% stenosis. Severe is 70% to 99% stenosis. Total occlusion is no detectable patent lumen. ADDENDUM: 10/23/24 0028 Addendum: THIS REPORT CONTAINS FINDINGS THAT MAY BE CRITICAL TO PATIENT CARE. The findings were verbally communicated via telephone conference with NOELLE CHESTER at 12:27 AM CDT on 10/23/2024. The findings were acknowledged and understood. Head CT 10/22/24 23:37 IMPRESSION: No acute intracranial abnormality. ASSESSMENT: ASPECTS ([place] Stroke Program Early CT Score) is 10. ADDENDUM: 10/23/24 0007 Addendum: THIS REPORT CONTAINS FINDINGS THAT MAY BE CRITICAL TO PATIENT CARE. The findings were verbally communicated via telephone conference with NOELLE CHESTER at 12:06 AM CDT on 10/23/2024. The findings were acknowledged and understood. Laboratory Results WBC 14.24 10^3/uL (3.29-11.43) H 10/22/24 23:48 RBC 5.95 10^6/uL (3.85-5.65) H 10/22/24 23:48 Hgb 17.30 g/dL (11.27-16.99) H 10/22/24 23:48 Hct 51.5 % (36-47) H 10/22/24 23:48 MCV 86.6 fl (85-98) 10/22/24 23:48 MCH 29.1 pg (27-33) 10/22/24 23:48 MCHC 33.6 g/dL (30-55) 10/22/24 23:48 RDW 12.8 % (12.1-15.1) 10/22/24 23:48 Plt Count 204 10^3/cmm (157-399) 10/22/24 23:48 MPV 12.4 fL (7.4-10.4) H 10/22/24 23:48 Neut % (Auto) 63.0 % 10/22/24 23:48 Lymph % (Auto) 26.9 % 10/22/24 23:48 [place] % (Auto) 6.3 % 10/22/24 23:48 Eos % (Auto) 2.8 % 10/22/24 23:48 Baso % (Auto) 0.6 % 10/22/24 23:48 Neut # (Auto) 8.98 10^3/uL (1.8-7.7) H 10/22/24 23:48 Lymph # (Auto) 3.8 10^3/uL (0.8-4.8) 10/22/24 23:48 [place] # (Auto) 0.9 10^3/uL (0.2-0.9) 10/22/24 23:48 Eos # (Auto) 0.4 10^3/uL (0.0-0.8) 10/22/24 23:48 Baso # (Auto) 0.1 10^3/uL (0.0-0.1) 10/22/24 23:48 Nucleated RBC % (auto) 0 % 10/22/24 23:48 Nucleated RBCs # 0.0 /100WBC 10/22/24 23:48 PT 12.50 SECONDS (12.1-14.9) 10/22/24 23:48 INR 0.87 (0.8-1.2) 10/22/24 23:48 APTT 23.7 SECONDS (23.9-36.7) L 10/22/24 23:48 Sodium 133 mmol/L (136-145) L 10/22/24 23:48 Potassium 3.9 mmol/L (3.5-5.1) 10/22/24 23:48 Chloride 96 mmol/L (98-107) L 10/22/24 23:48 Carbon Dioxide 24 mmol/L (22-29) 10/22/24 23:48 Anion Gap 16.9 (5-19) 10/22/24 23:48 BUN 11 mg/dL (6-20) 10/22/24 23:48 Creatinine 0.6 mg/dL (0.5-0.9) 10/22/24 23:48 GFR Calculation 108.1 mL/min (90-130) 10/22/24 23:48 Glucose 294 mg/dL (65-115) H 10/22/24 23:48 POC Glucose 320 mg/dL (70-110) H 10/22/24 23:30 Calculated Osmolality 286 mOsm/kg (285-295) 10/22/24 23:48 Calcium 9.3 mg/dL (8.5-10.5) 10/22/24 23:48 Total Bilirubin 0.3 mg/dL (0.15-1.2) 10/22/24 23:48 AST 12 U/L (0-32) 10/22/24 23:48 ALT 13 U/L (0-33) 10/22/24 23:48 Alkaline Phosphatase 134 U/L (35-105) H 10/22/24 23:48 Total Protein 7.4 g/dL (6.6-8.7) 10/22/24 23:48 Albumin 4.0 g/dL (3.5-5.2) 10/22/24 23:48 Globulin 3.4 g/dL (1.3-4.6) 10/22/24 23:48 Urine Color Yellow (Yellow) 10/23/24 00:00 Urine Appearance Clear (CLEAR) 10/23/24 00:00 Urine pH 6.5 (5-7) 10/23/24 00:00 Ur Specific Mallie 1.045 (1.005-1.030) H 10/23/24 00:00 Urine Protein Negative (Negative) 10/23/24 00:00 Urine Glucose (UA) 3+ (Normal) H 10/23/24 00:00 Urine Ketones Negative (Negative) 10/23/24 00:00 Urine Blood Negative (Negative) 10/23/24 00:00 Urine Nitrate Negative (Negative) 10/23/24 00:00 Urine Bilirubin Negative (Negative) 10/23/24 00:00 Urine Urobilinogen 1.0 mg/dL (Negative) 10/23/24 00:00 Ur Leukocyte Esterase Negative (Negative) 10/23/24 00:00 Urine RBC 0-2 /hpf (0-2) 10/23/24 00:00 Urine WBC 0-5 /hpf (0-5) 10/23/24 00:00 Ur Squamous Epith Cells 0-5 /hpf (0-5) 10/23/24 00:00 Amorphous Sediment Not Reportable 10/23/24 00:00 Urine Bacteria None seen /hpf (NONE) 10/23/24 00:00 Hyaline Casts 0-4 /lpf H 10/23/24 00:00 Urine Opiates Screen Negative ng/mL (Negative) 10/23/24 00:00 Ur Barbiturates Screen Negative ng/mL (Negative) 10/23/24 00:00 Ur Phencyclidine Scrn Negative ng/mL (Negative) 10/23/24 00:00 Ur Amphetamines Screen Negative ng/mL (Negative) 10/23/24 00:00 U Benzodiazepines Scrn Negative ng/mL (Negative) 10/23/24 00:00 Urine Cocaine Screen Negative ng/mL (Negative) 10/23/24 00:00 U Marijuana (THC) Screen Negative ng/mL (Negative) 10/23/24 00:00 All radiology interpretation(s) finalized by discharge Discharge Plan Discharge Patient Disposition: Placed in Observation Clinical Impression: Vertigo Coding Level of Care Code ED Split Leather Department Supervisor for Alcides Biggs
--- NOTE | 2024-10-23 01:14 | MR_ITS ---
WS: [id number] MRI BRAIN WITHOUT CONTRAST HISTORY: Vertigo, evaluate for stroke COMPARISON: CT 10/22/2024 TECHNIQUE: Diffusion imaging, multiplanar T1, T2 and FLAIR imaging obtained. No diffusion abnormality or acute infarct. Single FLAIR signal subcortical white matter abnormality RIGHT frontal lobe. No prior infarcts and no hemorrhage. No significant hippocampal atrophy. Ventricles and extra-axial spaces are normal. No inferior displacement of cerebellar tonsils. The sella turcica and pituitary gland are unremarkable. Dural venous sinuses and [place] demonstrate no abnormality on this unenhanced studies. Paranasal sinuses: Clear. Mastoid air cells: Normal. Calvarium and scalp: Intact. MR/MR head wo con* [id number] IMPRESSION: 1. No acute infarct or hemorrhage. 2. No prior infarcts. No significant volume loss or atrophy. 3. No abnormality noted at the cerebellopontine angle.
[2024-10-23 01:38] LABS: Procalcitonin 0.02 ng/mL (0-0.5)
--- NOTE | 2024-10-23 01:43 | PC.NURSE ---
Patient report was called to Leigh ISIDRO. All questions and concerns were addressed at time of report.
--- NOTE | 2024-10-23 01:52 | USCV_ITS ---
Julissa Avalos Age: 43 Gender: F : 1980 Exam Date: 10/23/2024 02:47 Ordering Phys: Juan Pablo Hinton MD Technologist: TAVO [place]am Location[place] [facility] [place]ication: acute stroke, dizzy, confused, long-term smoker, continues smoking, DM BP: 141 / 90 HR: 65 Rhythm: Sinus Technical Quality: Adequate MEASUREMENTS (Male / Female) Normal Values 2D ECHO LV Diastolic Diameter PLAX 4.3 cm 4.2 - 5.9 / 3.9 - 5.3 cm IVS Diastolic Thickness 1.3 cm 0.6 - 1.0 / 0.6 - 0.9 cm IVS Systolic Thickness 1.7 cm LVPW Diastolic Thickness 1.4 cm 0.6 - 1.0 / 0.6 - 0.9 cm LVPW Systolic Thickness 2.1 cm LVOT Diameter 1.8 cm LV Ejection Fraction 2D Teich 66.4 % LV Ejection Fraction MOD 4C 57.8 % LV Ejection Fraction MOD 2C 62.8 % LV Ejection Fraction 2C AL 63.4 % LA Diameter 2.8 cm Aorta at Sinotubular Diameter 2.8 cm IVC Diameter 1.5 cm M-MODE LA Ao Ratio MM 1.4 AV Cusp Separation MM 2.1 cm DOPPLER AV Peak Velocity 145.0 cm/s LVOT Peak Velocity 93.0 cm/s AV Area Cont Eq vti 1.8 cm squared AV Area Cont Eq pk 1.6 cm squared MV Peak Velocity 105.0 cm/s MV Area PHT 3.2 cm squared Mitral E to A Ratio 1.3 TV Peak E Velocity 38.0 cm/s PV Peak Velocity 86.0 cm/s FINDINGS Left Ventricle Left ventricle is normal in size. LV systolic function is normal with EF of 55-60%. No regional wall abnormalities are seen. Right Ventricle Normal in size and function Right Atrium Normal in size Left Atrium Normal in size Mitral Valve Structurally normal mitral valve. Mild mitral regurgitation. Aortic Valve Structurally normal aortic valve. No significant stenosis or regurgitation. Tricuspid Valve Insufficient TR jet to calculate RVSP Pulmonic Valve Not well visualized Pericardium Normal Aorta Normal in size IVC Appears to be normal CONCLUSIONS LV systolic function is normal with EF of 55-60%. Mild mitral regurgitation. Jae Calzada MD (Electronically Signed) Final Date: 02 Nov 2024 11:14 S
[2024-10-23] MEDS: acetaminophen 325 mg Tablet 650 MG PO ×2 (02:11→17:46)
[2024-10-23] MEDS: diazePAM 2 mg Tablet PO (02:12)
[2024-10-23 02:29] LABS: Chol HDL Ratio 3.89 mg/dL (0.0-4.40); Cholesterol 144 mg/dL (0-200); HDL Cholesterol 37 mg/dL (60-100); Triglycerides 420 mg/dL (0-150)
[2024-10-23 02:41] LABS: LDL Cholesterol Direct 62 mg/dL (0-100)
[2024-10-23 03:10] LABS: Estmated Average Glucose 255; Hemoglobin A1C 10.5 % (4.0-6.0)
[2024-10-23] MEDS: citalopram 20 mg Tablet PO (05:24)
[2024-10-23 06:35] LABS: Glucose Point of Care 193 mg/dL (70-110)
--- NOTE | 2024-10-23 08:13 | PM.CONSULT ---
Providers/Reason For Consult Consulting Physician/Specialty*: Adonay Abraham MD neurology and epilepsy Reason for Consult*: Vertigo Attending Physician: Juan Pablo Hinton MD Primary Care Provider: Mikaeal Hernadez MD History of Present Illness History of Present Illness Julissa Avalos is a 43 year old female with a history of bipolar disorder, posttraumatic stress disorder, nicotine dependence, diabetes mellitus, diabetic neuropathy, and osteoarthritis. The patient stated that she was at work at [employer]. 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 The patient stated that while standing she suddenly experienced acute onset of objective vertigo associated with profuse sweating around 4 PM on 10/22/2024. The patient presented to the [facility] emergency department and code stroke was initiated at approximately 11:30 PM on 10/22/2024. The patient denied focal weakness. The patient stated the symptoms did not improve and therefore she was brought to the [facility] emergency department by her roommate and arrived at the [facility] emergency department and code stroke was initiated at approximately 11:30 PM on 10/22/2024. Since the patient was outside of the thrombolytic window when she presented to the [facility] emergency department, the patient was not a candidate for intravenous thrombolytics and no intravenous thrombolytics were administered. Head CT and CT angiogram of the head and neck were unrevealing. Point of contact glucose Accu-Chek 320 The patient was admitted for further evaluation. I recommended the patient be placed on cardiac telemetry monitoring and undergo head MRI without contrast to assess for posterior circulation stroke. Patient was not started on aspirin since she reported she is allergic to aspirin. Patient is on Lipitor. On 10/23/2024 the patient reported that her dizziness was better she was sitting on the side of the bed eating breakfast. Drug allergies: Codeine which resulted in hallucinations Aspirin which resulted in a rash Latex which resulted in hives Oxycodone which resulted in a rash Topamax which resulted in a rash Imitrex which resulted in shortness of breath, wheezing and dizziness Current medications: Lipitor 40 mg p.o. daily Carvedilol 3.125 mg p.o. twice daily Celexa 20 mg p.o. daily Trulicity 0.75 mg subcutaneously every 7 days Empagliflozin 25 mg p.o. daily Eszopiclone 3 mg p.o. nightly Neurontin 300 mg capsules to take as directed Insulin Lispro to take as directed Isosorbide mononitrate 30 mg p.o. daily Mobic 7.5 mg p.o. daily Omeprazole 20 mg p.o. daily Seroquel 100 mg p.o. nightly Zanaflex 4 mg p.o. 3 times daily as needed Tramadol 50 mg p.o. 3 times daily, as needed Past medical history: Bipolar 2 disorder Posttraumatic stress disorder Gastroesophageal reflux disease Osteoarthritis Type II diabetes mellitus Diabetic neuropathy Obstructive sleep apnea History of percutaneous transluminal coronary angioplasty History of total knee arthroplasty Hypertension Degenerative lumbar disc disease Thoracic disc disease Lumbar radiculopathy Dyslipidemia Habits: Patient smokes 1/2 pack/day. She denied other drug use. Patient was educated on potential health risks associated with smoking. Family history: Negative for strokes Occupation: [email or web address] and [employer] Review of Systems General: Reports: 10 or more systems reviewed and unremarkable except in HPI and below Medications/Allergies Home Medications ?Medication ?Instructions ?Recorded ?Confirmed ?Last Taken ?Type gabapentin 300 mg capsule See Rx Instructions .Route 11/22/23 10/23/24 10/22/24 Rx .COMPLEX #120 caps insulin glargine 100 unit/mL (3 60 unit (0.6 mL) SUBCUT QAM #45 mL 03/26/24 10/23/24 09/04/24 Rx mL) subcutaneous pen (Lantus Solostar U-100 Insulin) omeprazole 20 mg capsule,delayed 20 mg PO DAILY #90 caps 05/30/24 10/23/24 10/22/24 Rx release carvedilol 3.125 mg tablet 3.125 mg PO BID #60 tabs 06/09/24 10/23/24 10/22/24 Rx meloxicam 7.5 mg tablet 7.5 mg PO DAILY #60 tabs 08/29/24 10/23/24 10/22/24 Rx atorvastatin 40 mg tablet (Lipitor) 40 mg PO QPM 09/05/24 10/23/24 10/22/24 History insulin lispro 100 unit/mL See Rx Instructions .Route .COMPLEX 09/05/24 10/23/24 09/04/24 History subcutaneous pen (Humalog KwikPen (U-100) Insulin) isosorbide mononitrate 30 mg 30 mg PO DAILY #30 tabs 09/05/24 10/23/24 10/22/24 Rx tablet,extended release 24 hr citalopram 20 mg tablet 20 mg PO QAM #30 tabs 09/17/24 10/23/24 10/22/24 Rx prazosin 2 mg capsule 4 mg (2 x 2 mg) PO BEDTIME #60 caps 09/17/24 10/23/24 10/22/24 Rx tramadol 50 mg tablet 50 mg PO TID PRN pain #90 tabs 09/22/24 10/23/24 10/22/24 Rx empagliflozin 25 mg tablet 25 mg PO DAILY #90 tabs 09/24/24 10/23/24 10/22/24 Rx (Jardiance) tizanidine 4 mg tablet 4 mg PO TID PRN Muscle Spasm #60 09/24/24 10/23/24 10/22/24 Rx tabs quetiapine 100 mg tablet (Seroquel) 100 mg PO .HS #30 tabs 10/17/24 10/23/24 10/22/24 Rx dulaglutide 0.75 mg/0.5 mL 0.75 mg SUBCUT Q7D 10/23/24 10/23/24 Unknown History subcutaneous pen injector (Trulicity) eszopiclone 3 mg tablet 3 mg PO QPM 10/23/24 10/23/24 Unknown History Allergies Allergy/AdvReac Type Severity Reaction Status Date / Time codeine Allergy Intermediate HALLUCINATI Verified 10/22/24 23:27 ONS latex Allergy Intermediate HIVES Verified 10/22/24 23:27 aspirin Allergy RASH Verified 10/22/24 23:27 oxycodone (From Percocet) Allergy RASH Verified 10/22/24 23:27 topiramate (From Topamax) Allergy RASH Verified 10/22/24 23:27 sumatriptan AdvReac Intermediate SOB; Verified 10/22/24 23:27 WHEEZING; DIZZINESS Current Medications Generic Name Dose Route Start Last Admin Trade Name Freq PRN Reason Stop Dose Admin Acetaminophen 650 mg 10/23/24 01:52 10/23/24 02:11 Acetaminophen 325 Mg Tablet PO 650 mg Q6H PRN Administration Mild/Mod Pain Or Temp >/= 101 Citalopram Hydrobromide 20 mg 10/23/24 06:00 10/23/24 05:24 Citalopram 20 Mg Tablet PO 20 mg QAM TOD Administration Diazepam 2 mg 10/23/24 01:52 10/23/24 02:12 Diazepam 2 Mg Tablet PO 2 mg Q6H PRN Administration Refractory Vertigo PFSH Acute PFSH: Medical History On combination antipsychotic drug therapy Instability of left knee joint Primary osteoarthritis of left knee GERD without esophagitis Calculus of kidney L 4.7mm UVP junction on CT Encounter for chronic pain management tramadol for chronic back pain Pain management contract signed tramadol; 10..24 HOMER (obstructive sleep apnea) on BIPAP Diabetic neuropathy associated with type 2 diabetes mellitus Uncontrolled type 2 diabetes mellitus with insulin therapy Facet arthritis, degenerative, lumbar spine Atherosclerosis of [place] coronary artery without angina pectoris Insomnia Urolithiasis Morbid obesity Bipolar 2 disorder Post-traumatic stress disorder, chronic Nicotine dependence, cigarettes, uncomplicated Psychiatric care Major depressive disorder without psychotic features Dyslipidemia Low back pain with sciatica Hypothyroidism Surgical History Hx of percutaneous transluminal coronary angioplasty History of total knee arthroplasty Right--has had 2 TKA--first in [place]--got infected then had another TKA at [facility] Hx laparoscopic cholecystectomy 03/01/23 Dr. Alarcon Hx of colonoscopy 2009 History of hernia repair umbilical and abdominal R side H/O: hysterectomy w/ BSO; had precancerous cells age 14, then had hyst for menometrorrhagia Hx of appendectomy 2005 Hx of laparoscopic gastric banding 2009 Family History Mother CAD (coronary artery disease) Stroke Father CAD (coronary artery disease) Other Cancer Diabetes Hypertension Social History Smoking and tobacco/nicotine status: current every day tobacco/nicotine user cigarettes Packs smoked per day: 1.5 Years cigarettes smoked: 28 Alcohol intake: never Substance/Drug Use: never Household members: significant other Housing: House Marital status: / Number of children: 0 Current occupational status: employed Current occupation: [employer] Female Reproductive History: Spontaneous abortions: No Vitals/I&O/Wt Last Vital Signs Temp 98.2 F 10/23/24 07:28 Pulse 71 10/23/24 07:28 Resp 16 10/23/24 07:28 BP 125/80 10/23/24 07:28 Pulse Ox 93 10/23/24 07:28 O2 Del Method Nasal Cannula 10/23/24 07:28 O2 Flow Rate 2 10/23/24 07:28 10/22/24 10/23/24 10/23/24 22:59 06:59 14:59 Intake Total 200 / 200 Balance 200 / 200 Weight last 48 hrs Weight 248 lb 6.4 oz Weight 249 lb Weight 244 lb Physical Exam Narrative: NIH score = 0 The patient is alert and oriented x 3. Speech fluent. Head normocephalic. Neck supple. Cranial nerves II through XII intact. Pupils 4 mm round reactive to light and accommodation. Extraocular movements intact. Motor exam nonfocal at 5/5. Throat clear. Lungs clear. Heart regular rhythm and rate. Extremities were negative for cyanosis. Data 10/22/24 23:48 10/22/24 23:48 A&P Assessment and plan (1) Vertigo: Impression: 1. Acute onset of vertigo at approximately 4 PM on 10/22/2024. The patient presented to the [facility] emergency department and code stroke was initiated around 11:30 PM on 10/22/2024. NIH score =0. Therefore patient was outside of the intravenous thrombolytic window and no intravenous thrombolytics were administered. Plan: 1. Recommend discontinuing Mobic since Mobic and other nonsteroidal anti-inflammatory medications other than aspirin have been reported to increase risk for stroke and heart disease 2. Recommend discontinuing tramadol since this medication has been reported to be associated with seizures 3. Agree with obtaining head MRI without contrast to assess for posterior circulation stroke 4. Consider Antivert for dizziness 5. Agree with Occupational Therapy, physical therapy and speech therapy evaluations 6. Address elevated serum glucose since patient has history of type 2 diabetes mellitus 7. Fall precautions 8. The patient was educated on the potential health risks associated with smoking. Patient voiced understanding. 9. Stroke education/stroke pamphlet for patient 10. Recommend cardiac evaluation to rule out cardiac causes for the patient's symptoms send CT angiogram of the head and neck was unrevealing 11. Note: Patient is allergic to aspirin 12. Recommend starting Plavix 75 mg p.o. every morning if head MRI is suggestive of posterior circulation stroke her NIH stroke protocol if no contraindications 13. Agree with continuing lipid-lowering agent per NIH stroke protocol 14. Fall precautions PDMP PDMP Reviewed: Not Reviewed Consult Attestations Medical Necessity Statement: The patient was evaluated by neurology for vertigo Coding Level of Care Code 59922 Diagnoses Vertigo R42
[2024-10-23] MEDS: pantoprazole DR 40 mg Tablet PO (08:56)
[2024-10-23] MEDS: carvedilol 3.125 mg Tablet PO ×2 (08:56→17:46)
[2024-10-23] MEDS: insulin lispro 100 unit/1 mL SUBCUT ×4 (08:56→20:55)
[2024-10-23] MEDS: isosorbide mononitrate ER 30 mg Tablet PO (08:56)
[2024-10-23 11:31] LABS: Glucose Point of Care 180 mg/dL (70-110)
[2024-10-23] MEDS: tizanidine 4 mg Tablet PO (11:40)
--- NOTE | 2024-10-23 14:20 | PM.MISC ---
Miscellaneous Note Note: Seen this morning. Patient symptoms have resolved. She states that the dizziness is improved as well. Meclizine helped. She is awaiting MRI at this time. We would review results after MRI she is also awaiting PT OT eval and speech evaluation at this time. Further recommendations will be made after reviewing all the above for decision making going forward.
--- NOTE | 2024-10-23 14:28 | PC.OT ---
OT EVALUATION ORDERS RECEIVED. WAITING MRI RESULTS TO DETERMINE IF VERTIGO OR CVA.
[2024-10-23 16:53] LABS: Glucose Point of Care 169 mg/dL (70-110)
[2024-10-23] MEDS: atorvastatin 40 mg Tablet PO (17:46)
[2024-10-23] MEDS: TRAMadol 50 mg Tablet PO (20:12)
[2024-10-23] MEDS: gabapentin 300 mg Capsule 600 MG PO (20:12)
[2024-10-23] MEDS: prazosin 1 mg Capsule 4 MG PO (20:12)
[2024-10-23 20:35] LABS: Glucose Point of Care 214 mg/dL (70-110)
[2024-10-24 03:00] VITALS: BP 92/59; PULSE 76; RESP 16; TEMP 36.8; O2SAT 91
[2024-10-24 04:52] LABS: Basophils # 0.1 10^3/uL (0.0-0.1); Basophils % 0.5 %; Eosinophils # 0.3 10^3/uL (0.0-0.8); Eosinophils % 2.1 %; Hematocrit 50.1 % (36-47); Lymphocytes % 24.1 %; Mean Corpuscular HGB Conc 32.9 g/dL (30-55); Mean Corpuscular Hemoglobin 28.6 pg (27-33); Mean Platelet Volume 12.5 fL (7.4-10.4); Monocytes # 0.8 10^3/uL (0.2-0.9); Monocytes % 6.4 %; Neutrophils # 8.38 10^3/uL (1.8-7.7); Neutrophils % 66.5 %; Nucleated Red Blood Cells % 0 %; Platelet Count 206 10^3/cmm (157-399); Red Blood Count 5.76 10^6/uL (3.85-5.65)
[2024-10-24] MEDS: citalopram 20 mg Tablet PO (05:07)
[2024-10-24 05:11] LABS: Estmated Average Glucose 229; Hemoglobin A1C 9.6 % (4.0-6.0)
[2024-10-24 05:23] LABS: Chol HDL Ratio 4.16 mg/dL (0.0-4.40); Cholesterol 158 mg/dL (0-200); HDL Cholesterol 38 mg/dL (60-100); LDL Cholesterol Calculated 70 mg/dL (50-129); LDL HDL Ratio 1.84 RATIO (0.00-3.22); Triglycerides 248 mg/dL (0-150)
[2024-10-24 05:24] LABS: Anion Gap 14.1 (5-19); Blood Urea Nitrogen 13 mg/dL (6-20); Calcium 8.8 mg/dL (8.5-10.5); Carbon Dioxide 25 mmol/L (22-29); Chloride 99 mmol/L (98-107); Creatinine Clr Calc Pharmacy 145.0487; Glomerular Filtration Rate 108.1 mL/min (90-130); Glucose 239 mg/dL (65-115); Osmolality Calculated 286 mOsm/kg (285-295); Potassium 4.1 mmol/L (3.5-5.1); Sodium 134 mmol/L (136-145)
[2024-10-24 05:53] VITALS: PULSE 68
[2024-10-24 06:25] LABS: Glucose Point of Care 231 mg/dL (70-110)
[2024-10-24 07:40] VITALS: BP 92/59; PULSE 70; RESP 16; TEMP 37; O2SAT 90
--- NOTE | 2024-10-24 08:53 | PM.DCS ---
Discharge Providers Date of Admission: 10/23/24 01:11 Date of Discharge: December 29, 2024 Attending Provider at Admission: Juan Pablo Hinton MD Attending Provider at Discharge: Ophelia Aponte MD Primary Care Provider: Mikaela Hernadez MD Diagnoses at Discharge Discharge Diagnosis 1. Vertigo: Reason for Visit Reason for Visit: Dizzy itchy all over sweaty confused Brief History: Julissa Avalos is a 43 year old female with a past medical history significant for osteoarthritis, GERD, diabetes mellitus, diabetic neuropathy, bipolar 2 disorder, PTSD, nicotine use, depression, and multiple other comorbidities who presents emergency department with headache and vertigo with onset about 4 PM today. She endorses associated headache which is different than her usual headaches/migraines. Movement worsens symptoms. Denies other alleviating or aggravating factors. Reports cough about a week ago. Denies other recent infectious symptoms. Denies history of known TIA or strokes. Denies similar prior episodes. In the emergency department, vital signs were fairly unremarkable. CT head as well as CT head and neck angio were negative for acute intracranial findings. Her symptoms persisted concerning for possible posterior stroke pathology. Patient discussed with the ED provider who reportedly discussed patient with neurology Dr. Abraham. NIH score of 1. She presents for observation admission. Hospital Course Hospital Course Patient presents the hospital with severe vertical history of TIA or stroke. She underwent evaluation with neurology who recommended we obtain an MRI to rule out posterior circulation stroke. MRI was obtained and it was negative. Neuro recommended discontinuing Mobic and other NSAIDs as they have reported increased risk for stroke and heart disease. Patient was given Antivert for dizziness at time of discharge. She was seen by PT OT as well. CT head and neck was normal. If MRI was to be suggestive of posterior circulation stroke she was recommended to start Plavix. However MRI was within normal limits. Patient dizziness improved by second day of hospitalization and she was discharged home in stable condition. All questions were answered. She was given follow-up with her primary care as an outpatient. Physical Exam Narrative: General: AOx3, no acute distress, well developed, well nourished, appears stated age Chest: atraumatic, symmetrical CVD: RRR, normal S1 and S2, no M/R/G. Lungs: clear lung sounds in all snider, no rhonchi, wheezing, rales. Abdomen: morbid obesity,NT, ND Neuro: Generally nonfocal. Discharge Data Studies Completed and Pending Completed Studies During Hospitalization Category Date Time Status CT angio headneck* [id number] Stat Cat Scan 10/22/24 23:[address] head thrombolytic [id number] Stat Cat Scan 10/22/24 23:37 Completed XR KUB portable [id number] Urgent Exams 10/24/24 11:34 Completed XR chest 1V portable [id number] Stat Exams 10/22/24 23:35 Completed MR head wo con* [id number] Stat MRI 10/23/24 01:14 Completed CV. echo complete* [id number] Routine Ultrasound 10/23/24 01:52 Completed Radiology Impressions Chest X-Ray 10/22/24 23:35 IMPRESSION: No acute findings. Head/Neck CTA 10/22/24 23:35 IMPRESSION: There is no evidence of intracranial large vessel occlusion or aneurysm. IMPRESSION: No stenosis or occlusion. REFERENCES: NASCET CRITERIA. The degree of stenosis in the cervical segment of the internal carotid artery is based on NASCET criteria. Normal is no stenosis. Mild is less than 50% stenosis. Moderate is 50-69% stenosis. Severe is 70% to 99% stenosis. Total occlusion is no detectable patent lumen. ADDENDUM: 10/23/24 0028 Addendum: THIS REPORT CONTAINS FINDINGS THAT MAY BE CRITICAL TO PATIENT CARE. The findings were verbally communicated via telephone conference with NOELLE CHESTER at 12:27 AM CDT on 10/23/2024. The findings were acknowledged and understood. Head CT 10/22/24 23:37 IMPRESSION: No acute intracranial abnormality. ASSESSMENT: ASPECTS ([place] Stroke Program Early CT Score) is 10. ADDENDUM: 10/23/24 0007 Addendum: THIS REPORT CONTAINS FINDINGS THAT MAY BE CRITICAL TO PATIENT CARE. The findings were verbally communicated via telephone conference with NOELLE CHESTER at 12:06 AM CDT on 10/23/2024. The findings were acknowledged and understood. Head MRI 10/23/24 01:14 IMPRESSION: 1. No acute infarct or hemorrhage. 2. No prior infarcts. No significant volume loss or atrophy. 3. No abnormality noted at the cerebellopontine angle. KUB X-Ray 10/24/24 11:34 IMPRESSION: No acute abnormality as above. Laboratory Results WBC 12.60 10^3/uL (3.29-11.43) H 10/24/24 04:35 RBC 5.76 10^6/uL (3.85-5.65) H 10/24/24 04:35 Hgb 16.50 g/dL (11.27-16.99) 10/24/24 04:35 Hct 50.1 % (36-47) H 10/24/24 04:35 MCV 87.0 fl (85-98) 10/24/24 04:35 MCH 28.6 pg (27-33) 10/24/24 04:35 MCHC 32.9 g/dL (30-55) 10/24/24 04:35 RDW 13.0 % (12.1-15.1) 10/24/24 04:35 Plt Count 206 10^3/cmm (157-399) 10/24/24 04:35 MPV 12.5 fL (7.4-10.4) H 10/24/24 04:35 Neut % (Auto) 66.5 % 10/24/24 04:35 Lymph % (Auto) 24.1 % 10/24/24 04:35 [place] % (Auto) 6.4 % 10/24/24 04:35 Eos % (Auto) 2.1 % 10/24/24 04:35 Baso % (Auto) 0.5 % 10/24/24 04:35 Neut # (Auto) 8.38 10^3/uL (1.8-7.7) H 10/24/24 04:35 Lymph # (Auto) 3.0 10^3/uL (0.8-4.8) 10/24/24 04:35 [place] # (Auto) 0.8 10^3/uL (0.2-0.9) 10/24/24 04:35 Eos # (Auto) 0.3 10^3/uL (0.0-0.8) 10/24/24 04:35 Baso # (Auto) 0.1 10^3/uL (0.0-0.1) 10/24/24 04:35 Nucleated RBC % (auto) 0 % 10/24/24 04:35 Nucleated RBCs # 0.0 /100WBC 10/24/24 04:35 PT 12.50 SECONDS (12.1-14.9) 10/22/24 23:48 INR 0.87 (0.8-1.2) 10/22/24 23:48 APTT 23.7 SECONDS (23.9-36.7) L 10/22/24 23:48 Sodium 134 mmol/L (136-145) L 10/24/24 04:35 Potassium 4.1 mmol/L (3.5-5.1) 10/24/24 04:35 Chloride 99 mmol/L (98-107) 10/24/24 04:35 Carbon Dioxide 25 mmol/L (22-29) 10/24/24 04:35 Anion Gap 14.1 (5-19) 10/24/24 04:35 BUN 13 mg/dL (6-20) 10/24/24 04:35 Creatinine 0.6 mg/dL (0.5-0.9) 10/24/24 04:35 GFR Calculation 108.1 mL/min (90-130) 10/24/24 04:35 Glucose 239 mg/dL (65-115) H 10/24/24 04:35 POC Glucose 268 mg/dL (70-110) H 10/24/24 11:13 Estimat Average Glucose 229 10/24/24 04:35 Hemoglobin A1c 9.6 % (4.0-6.0) H 10/24/24 04:35 Calculated Osmolality 286 mOsm/kg (285-295) 10/24/24 04:35 Calcium 8.8 mg/dL (8.5-10.5) 10/24/24 04:35 Total Bilirubin 0.3 mg/dL (0.15-1.2) 10/22/24 23:48 AST 12 U/L (0-32) 10/22/24 23:48 ALT 13 U/L (0-33) 10/22/24 23:48 Alkaline Phosphatase 134 U/L (35-105) H 10/22/24 23:48 Total Protein 7.4 g/dL (6.6-8.7) 10/22/24 23:48 Albumin 4.0 g/dL (3.5-5.2) 10/22/24 23:48 Globulin 3.4 g/dL (1.3-4.6) 10/22/24 23:48 Triglycerides 248 mg/dL (0-150) H 10/24/24 04:35 Cholesterol 158 mg/dL (0-200) 10/24/24 04:35 LDL Cholesterol Direct 62 mg/dL (0-100) 10/22/24 23:48 LDL Cholesterol, Calc 70 mg/dL (50-129) 10/24/24 04:35 HDL Cholesterol 38 mg/dL (60-100) L 10/24/24 04:35 LDL/HDL Ratio 1.84 RATIO (0.00-3.22) 10/24/24 04:35 Cholesterol/HDL Ratio 4.16 mg/dL (0.0-4.40) 10/24/24 04:35 Procalcitonin 0.02 ng/mL (0-0.5) 10/22/24 23:48 Urine Color Yellow (Yellow) 10/23/24 00:00 Urine Appearance Clear (CLEAR) 10/23/24 00:00 Urine pH 6.5 (5-7) 10/23/24 00:00 Ur Specific [place] 1.045 (1.005-1.030) H 10/23/24 00:00 Urine Protein Negative (Negative) 10/23/24 00:00 Urine Glucose (UA) 3+ (Normal) H 10/23/24 00:00 Urine Ketones Negative (Negative) 10/23/24 00:00 Urine Blood Negative (Negative) 10/23/24 00:00 Urine Nitrate Negative (Negative) 10/23/24 00:00 Urine Bilirubin Negative (Negative) 10/23/24 00:00 Urine Urobilinogen 1.0 mg/dL (Negative) 10/23/24 00:00 Ur Leukocyte Esterase Negative (Negative) 10/23/24 00:00 Urine RBC 0-2 /hpf (0-2) 10/23/24 00:00 Urine WBC 0-5 /hpf (0-5) 10/23/24 00:00 Ur Squamous Epith Cells 0-5 /hpf (0-5) 10/23/24 00:00 Amorphous Sediment Not Reportable 10/23/24 00:00 Urine Bacteria None seen /hpf (NONE) 10/23/24 00:00 Hyaline Casts 0-4 /lpf H 10/23/24 00:00 Urine Opiates Screen Negative ng/mL (Negative) 10/23/24 00:00 Ur Barbiturates Screen Negative ng/mL (Negative) 10/23/24 00:00 Ur Phencyclidine Scrn Negative ng/mL (Negative) 10/23/24 00:00 Ur Amphetamines Screen Negative ng/mL (Negative) 10/23/24 00:00 U Benzodiazepines Scrn Negative ng/mL (Negative) 10/23/24 00:00 Urine Cocaine Screen Negative ng/mL (Negative) 10/23/24 00:00 U Marijuana (THC) Screen Negative ng/mL (Negative) 10/23/24 00:00 Vitals Last Vital Signs Temp 98.0 F 10/24/24 13:04 Pulse 70 10/24/24 13:04 Resp 17 10/24/24 13:04 BP 117/82 10/24/24 13:04 Pulse Ox 95 10/24/24 13:04 O2 Del Method Room Air 10/24/24 11:14 O2 Flow Rate 2 10/23/24 07:28 Discharge Plan Discharge Patient Disposition: Home Condition: Stable Prescriptions: Continued omeprazole 20 mg capsule,delayed release(DR/EC) 20 mg PO DAILY Qty: 90 3RF Jardiance 25 mg tablet 25 mg PO DAILY Qty: 90 1RF Rx Instructions: on insulin, failed metformin; uncontrolled atorvastatin [Lipitor] 40 mg tablet 40 mg PO QPM insulin lispro [Humalog KwikPen Insulin] 100 unit/mL insulin pen See Rx Instructions .ROUTE .COMPLEX Rx Instructions: Per sliding scale; up to 30 units three times daily with meals. Trulicity 0.75 mg/0.5 mL pen injector 0.75 mg SUBCUT Q7D Changed insulin glargine [Lantus Solostar U-100 Insulin] 100 unit/mL (3 mL) insulin pen 40 unit SUBCUT QAM Qty: 45 0RF Discontinued meloxicam 7.5 mg tablet 7.5 mg PO DAILY Qty: 60 0RF tramadol 50 mg tablet 50 mg PO TID PRN (Reason: pain) Qty: 90 3RF No Action fluconazole 150 mg tablet 150 mg PO Q3D Qty: 7 0RF quetiapine [Seroquel] 100 mg tablet 100 mg PO .HS Qty: 30 2RF prazosin 2 mg capsule 4 mg PO BEDTIME Qty: 60 2RF citalopram 20 mg tablet 20 mg PO QAM Qty: 30 2RF gabapentin 300 mg capsule See Rx Instructions .ROUTE .COMPLEX Qty: 120 5RF Dose Instruction: TAKE 1 CAPSULE BY MOUTH THREE TIMES DAILY AT 9 AM, NOON, AND 8 PM Rx Instructions: Take 1 capsule (300mg) by mouth at 9am and 12pm and two capsules (600mg) at bedtime. tramadol 50 mg tablet 50 mg PO TID PRN (Reason: pain) Qty: 90 3RF (DME) Dexcom G7 Sensor Device See Rx Instructions .MEDSUPPLY Qty: 3 12RF Rx Instructions: Change every 10 days; Use as directed to check blood sugar carvedilol 3.125 mg tablet 3.125 mg PO BID Qty: 60 5RF Zepbound 2.5 mg/0.5 mL pen injector 2.5 mg SUBCUT .qwk Qty: 2 2RF tizanidine 4 mg tablet 4 mg PO TID PRN (Reason: Muscle Spasm) Qty: 60 2RF Discharge Order = DC NOW: Discharge Order (Routine); Ordered 10/24/24 Ordered By: Ophelia Aponte Other Ambulatory Orders: Complete Blood Count w/Auto (Routine) Timeframe: 3 Days Location: Determined by Patient Ordered By: Ophelia Aponte Referrals: Physical Therapy - [facility] [Provider Group] - 1-3 days Boubacar Mckoy MD [Physician, Ear, Nose, Throat] - 11/06/24 10:00 am Mikaela Hernadez MD [Primary Care Provider, [facility]] - 11/20/24 9:30 am Discharge Diet: Cardiac and Diabetic Discharge Activity: As per PT/OT instructions Patient Instructions: Meclizine (By mouth), Vertigo (ED), Leukocytosis (DC), Opioid Safety Discharge Attestations Time Spent in Discharge Care*: less than 30 min Quality Metrics Clinical Quality Measures [ No reported AMI, CVA or VTE this stay] Coding Level of Care Code Acute Code for Chg Fwd Diagnoses Vertigo R42
[2024-10-24 11:14] VITALS: BP 117/82; PULSE 70; RESP 17; TEMP 36.7; O2SAT 95
[2024-10-24 11:20] LABS: Glucose Point of Care 268 mg/dL (70-110)
--- NOTE | 2024-10-24 11:34 | XR_ITS ---
WS: [id number] XR KUB portable [id number] REASON FOR EXAM: nausea FINDINGS: Gastric pneumatic banding which appears to be in normal position with no change compared to previous examinations. There is moderate gaseous distention of the stomach. No significant distal bowel distention. No free air or retroperitoneal air. No mass or organomegaly. No urinary tract calculi identified. XR/XR KUB portable [id number] IMPRESSION: No acute abnormality as above.
[2024-10-24] MEDS: insulin lispro 100 unit/1 mL SUBCUT (11:59)
--- NOTE | 2024-10-24 12:29 | PC.OT ---
OT evaluation attempted with pt independent in ADLs and scored 15/15 on BIMS Assessment demonstrating pt is cognitively intact. Pt demonstrates no vestibular abnormalities and reports no dizziness. Pt has no concerns about safety going home. Pt demonstrates good dynamic and static sitting and standing balance. Pt reports 7/10 back pain and is referred to nursing. No OT indicated at this time due to high level of independence.
[2024-10-24 13:04] VITALS: BP 117/82; PULSE 70; RESP 17; TEMP 36.7; O2SAT 95
== END 2024-10-24 13:28 | disposition home or self-care (01) ==
LOC: ER 10-23 00:44 → MEDSURG 10-23 01:22
PROVIDERS: Admitting Provider Internal Medicine; Emergency Provider Emergency Medicine; PCP Family Medicine; Visit Provider Internal Medicine
DX: R42 Dizziness and giddiness (principal); L29.9 Pruritus, unspecified; L75.0 Bromhidrosis; K21.9 Gastro-esophageal reflux disease without esophagitis; Z79.4 Long term (current) use of insulin; G47.33 Obstructive sleep apnea (adult) (pediatric); E66.01 Morbid (severe) obesity due to excess calories; Z68.41 Body mass index [BMI] 40.0-44.9, adult; F17.210 Nicotine dependence, cigarettes, uncomplicated; E78.5 Hyperlipidemia, unspecified; E03.9 Hypothyroidism, unspecified; D72.829 Elevated white blood cell count, unspecified; I10 Essential (primary) hypertension; M19.90 Unspecified osteoarthritis, unspecified site; E11.40 Type 2 diabetes mellitus with diabetic neuropathy, unspecified; F31.9 Bipolar disorder, unspecified; F43.10 Post-traumatic stress disorder, unspecified; R51.9 Headache, unspecified
CPT/HCPCS: 36415; 36416; 70450; 70496; 70498; 70551; 71045; 74018; 80048; 80053; 80061; 80306; 81001; 82962; 83036; 83721; 84145; 85025; 85610; 85730; 92523; 92610; 93005; 93306; 94760; 96372; 97161; 97530; 99285; G0378; J1815; J8597; J9999

== ENCOUNTER 2024-11-03 14:51 | Emergency (ER) | payer MEDICAID, SELFPAY ==
[2024-10-24 15:22] VITALS: BP 117/82; BMI 42.7
[2024-11-03 14:56] VITALS: BP 127/88; PULSE 95; TEMP 36.6; O2SAT 92
--- NOTE | 2024-11-03 15:41 | ECG_ITS ---
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 Measurements Intervals [place] Rate: 97 P: 56 TN: 189 QRS: 266 QRSD: 75 T: 50 QT: 333 QTc: 424 Interpretive Statements SINUS RHYTHM POSSIBLE RIGHT VENTRICULAR HYPERTROPHY [SOME/ALL OF: PROMINENT R IN V1, LATE TRANSITION, RAD, HAYLEE, SSS] ANTERIOR MYOCARDIAL INFARCTION , PROBABLY OLD [40+ ms Q WAVE AND/OR ST/T ABNORMALITY IN V3/V4] INTERPRETATION BASED ON A DEFAULT AGE OF 40 YEARS Compared to ECG 10/22/2024 23:38:49 Indeterminate axis no longer present Myocardial infarct finding still present Electronically Signed On 11-04-2024 06:40:15 CDT by Maurisio Andrade M.D. [email or web address]
[2024-11-03 15:53] LABS: Basophils # 0.1 10^3/uL (0.0-0.1); Basophils % 0.5 %; Eosinophils # 0.4 10^3/uL (0.0-0.8); Eosinophils % 3.3 %; Hematocrit 52.1 % (36-47); Lymphocytes # 2.6 10^3/uL (0.8-4.8); Lymphocytes % 24.3 %; Mean Corpuscular HGB Conc 33.8 g/dL (30-55); Mean Corpuscular Hemoglobin 28.8 pg (27-33); Mean Corpuscular Volume 85.3 fl (85-98); Mean Platelet Volume 12.4 fL (7.4-10.4); Monocytes # 0.6 10^3/uL (0.2-0.9); Monocytes % 5.7 %; Neutrophils # 7.11 10^3/uL (1.8-7.7); Neutrophils % 65.8 %; Nucleated Red Blood Cells % 0 %; Platelet Count 222 10^3/cmm (157-399); Red Blood Count 6.11 10^6/uL (3.85-5.65); Red Cell Distribution Width 12.8 % (12.1-15.1); White Blood Count 10.81 10^3/uL (3.29-11.43)
[2024-11-03 16:04] LABS: HCG, Serum Qual Negative (Negative)
[2024-11-03 16:11] LABS: Alanine Aminotransferase 13 U/L (0-33); Albumin Level 4.2 g/dL (3.5-5.2); Alkaline Phosphatase 160 U/L (35-105); Anion Gap 17.2 (5-19); Aspartate Amino Transferase 9 U/L (0-32); Blood Urea Nitrogen 10 mg/dL (6-20); Calcium 9.2 mg/dL (8.5-10.5); Carbon Dioxide 26 mmol/L (22-29); Chloride 98 mmol/L (98-107); Creatinine Clr Calc Pharmacy 144.0991; Globulin 3.2 g/dL (1.3-4.6); Glomerular Filtration Rate 108.1 mL/min (90-130); Glucose 293 mg/dL (65-115); Osmolality Calculated 294 mOsm/kg (285-295); Potassium 4.2 mmol/L (3.5-5.1); Sodium 137 mmol/L (136-145); Total Bilirubin 0.6 mg/dL (0.15-1.2); Total Protein 7.4 g/dL (6.6-8.7)
== END 2024-11-03 16:06 | disposition left against medical advice (07) ==
PROVIDERS: Emergency Medicine; Emergency Provider Family Medicine; PCP Family Medicine
DX: Z01.89 Encounter for other specified special examinations (principal); R94.31 Abnormal electrocardiogram [ECG] [EKG]; Z53.21 Procedure and treatment not carried out due to patient leaving prior to being seen by health care provider
CPT/HCPCS: 36415; 80053; 84703; 85025; 93005

== ENCOUNTER → 2024-12-12 10:39 | Outpatient (BNVA) | payer MEDICAID, SELFPAY ==
[2024-10-24 15:22] VITALS: BP 117/82; BMI 42.7
== END ==
PROVIDERS: PCP Family Medicine; Visit Provider Student in an Organized Health Care Education/Training Program
DX: Z12.11 Encounter for screening for malignant neoplasm of colon (principal)
CPT/HCPCS: 99024; 99204

== ENCOUNTER 2024-12-19 15:33 | Emergency (ER) | payer MEDICAID, SELFPAY ==
[2024-10-24 15:22] VITALS: BP 117/82; BMI 42.7
[2024-12-19] VITALS (8 sets, daily range): BP systolic 127–155; BP diastolic 79–105; PULSE 75–94; RESP 18–20; TEMP 36.7; O2SAT 90–95; BMI 43.4
--- OUTSIDE RECORDS SUMMARY | 2024-12-19 15:38 | XMS_ITS | Clinical Summary ---
Author Organization [facility] Address [address] Alvarez: Epic Prelude ADT MICHELLE LOZADA [address] Care Team Providers Care Bank Manager Name Role Phone Siomara Laboy MD Primary Care Provider [phone] Allergies Active Allergy Reactions Criticality Noted Date Comments Aspirin, Buffered Rash Low 09/22/2008 Codeine Hallucination Medium 09/22/2008 Ketorolac Itching,Palpitations Medium 12/15/2019 Latex Hives High 09/22/2008 Naproxen Unknown 12/15/2019 Cant remember reaction Oxycodone-Acetaminoph en Rash Low 11/10/2015 Sumatriptan-Naproxen Shortness of Breath/Wheezing,Other (See Comments),Dizziness High 09/22/2008 Topiramate Rash Low 01/13/2020 Trazodone Other (See Comments) 10/17/2015 Night benavidez Medications Blood-Glucose Meter Kit Use to check sugars once daily. Dx: E11.9, #100 test strips, #100 lancets (brand covered by insurance) 1 Kit 0 1 Active HYDROcodone-ac etaminophen (NORCO) 10-325 mg Tablet Take 1 Tablet by mouth every 4 hours as needed for Pain, Moderate. Dr. Fuentes 1 Active naloxone (Narcan) 4 mg/spray Clemons, Non-Aerosol [address] time only[address] Fuentes 1 Active fluticasone propionate (FLONASE) 50 mcg/spray Clemons, Suspension nasal inhaler SHAKE LIQUID AND USE 2 SPRAYS IN EACH NOSTRIL DAILY 16 Gram 1 1 Active LEVOTHYROXINE 88 mcg tablet TAKE 1 TABLET BY MOUTH EVERY DAY RESPIRATORY THERAPY AIDE 90 Tablet 1 1 Active diphenhydrAMIN E (BENADRYL) 25 mg tablet Take 50 mg by mouth nightly as needed for Allergies. Active bipap sv ResMed VPAP-S with IPAP 12 cwp, EPAP 11 cwp, Timin 0.7 sec, Timax 2 sec, trigger medium, cycle medium, with 3 lpm oxygen supplement. Length Of Need: 99 mo, mask per patient comfort with headgear 1 per 6 month, mask only1 per 3 mo,as needed cushions per mo. Tubingheated 1 per 3 mo, water chamber 1 per 6 months, chin strap 1 per 6 months, filters disposable 2 per month, reusable 1 per 6 months. Efficacy data download feature and mask fitting. 1 Each 1 Active cariprazine (VRAYLAR) 1.5 mg Capsule capsule Take 1 Capsule (1.5 mg) by mouth daily at bedtime. 90 Capsule 1 Active Additional Information Patient taking differently: 3 mgOral DAILY AT BEDTIME, Reported on 07/29/2021 oxygen home deliveryIndica tions:Hypoxemi a Home Oxygen Concentrator yes at 3 L/M Sleep, Delivery Device: CPAP Portability: no, May provide device best for patient needs(E system,home fill, conserving device) Length of Need: 99 months 1 Each 1 Active lisinopriL (PRINIVIL) 20 mg tablet Take 1 Tablet (20 mg) by mouth daily. Start with 1/2 tab daily. Goal BP less than 140/90. 90 Tablet 3 1 Active Additional Information Patient taking differently:20 mg Oral DAILY,Goal BP less than 140/90., Reported on 12/12/2021 traZODone (DESYREL) 50 mg tablet Take 1 Tablet (50 mg) by mouth daily at bedtime. 30 Tablet 3 2 Active Additional Information Patient taking differently: 300 mgOral DAILY AT BEDTIME,Dr Rivers [facility], Reported on 07/29/2021 propranoloL (INDERAL) 10 mg tablet TAKE 1 TABLET(10 MG) BY MOUTH TWICE DAILY 180 Tablet 1 2 Active metFORMIN (GLUCOPHAGE) 1,000 mg tablet TAKE 1 TABLET(1000 MG) BY MOUTH TWICE DAILY WITH MEALS 180 Tablet 1 2 Active prazosin (MINIPRESS) 2 mg capsule Take 2 mg by mouth daily at bedtime. Dr. Rivers [facility] Active lancets (OneTouch Delica Plus Lancet) 30 gauge USE TO CHECK SUGARS DAILY 100 Each 3 2 Active varenicline (CHANTIX) 0.5 mg Tablet Take 2 Tablets (1 mg) by mouth 2 times daily. 60 Tablet 2 Active Additional Information Patient not taking.Reported on 12/12/2021 insulin aspart U-100 (NovoLOG U-100 Insulin aspart) 100 unit/mL vial 5 units daily before meals TID. 10 mL 1 2 Active Additional Information Patient taking differently: 10 Units subCUT THREE TIMES DAILY WITH MEALS, 5 units daily before meals TID., Reported on 12/12/2021 Insulin Syringe-Needle U-100 1 mL 31 gauge x 5/16 Syringe Use QHS for administration of Lantus insulin. 100 Each 3 2 Active pravastatin (PRAVACHOL) 20 mg tablet Take 1 Tablet (20 mg) by mouth daily. 90 Tablet 3 2 Active Lantus U-100 Insulin 100 unit/mL vial INJECT 5 UNITS UNDER THE SKIN DAILY AT BEDTIME 10 mL 2 Active Additional Information Patient taking differently: 8 Units subCUT DAILY AT BEDTIME, Reported on 12/12/2021 tiZANidine (ZANAFLEX) 4 mg Tablet Take 4 mg by mouth every 8 hours. Active cetirizine (ZyrTEC) 10 mg tablet TAKE 1 TABLET(10 MG) BY MOUTH DAILY 90 Tablet 3 2 Active gabapentin (NEURONTIN) 300 mg capsule TAKE 1 CAPSULE(300 MG) BY MOUTH THREE TIMES DAILY 270 Capsule 1 3 Active OneTouch Ultra Test Strip USE TO CHECK BLOOD SUGAR DAILY 100 Strip 3 3 Active atorvastatin calcium (ATORVASTATIN ORAL) Take by mouth. Activ e carvedilol (COREG CR) 10 mg Controlled Release 24 hour capsule Take 10 mg by mouth daily with breakfast. Active traMADoL (ULTRAM) 50 mg tablet Take by mouth every 6 hours as needed for Pain. Active Active Problems Problem Noted Date Diagnosed Date Hypothyroidism 06/24/2021 DM (diabetes mellitus), type 2 08/19/2020 Ventral hernia 06/07/2019 Lower abdominal pain 05/13/2019 H/O laparoscopic adjustable gastric banding 09/17 Recurrent incisional hernia 10/10/2017 Major depressive disorder, r ecurrent severe without psychotic features 09/05/2017 Post traumatic stress disorder 09/05/2017 MRSA nasal colonization 06/06/2012 Neuropathy 01/05/2012 Tobacco abuse 02/08/2010 Asthma 02/08/2010 Hyperlipidemia 08/19/2009 Sleep apnea 08/19/2009 OA (osteoarthritis) 08/19/2009 Dental caries 08/04/2009 Morbid obesity with body mass index of 40.0-49.9 09/28/2008 GERD (gastroesophageal reflux disease) Overview (10/14/2020): Esophageal blisters Hypertension Resolved Problems Problem Noted Date Diagnosed Date Resolved Date Abdominal or pelvic swelling , mass, or lump, other specified site 05/27/2012 10/08/2017 Adjustment Disorder with Mix ed Disturbance of Emotions and Conduct 11/01/2010 01/05/2012 Borderline personality disorder 11/01/2010 01/05/2012 Pneumonitis due to inhalatio n of food or vomitus 10/30/2010 01/05/2012 Overdose 10/30/2010 01/05/2012 Hypopotassemia 10/30/2010 01/05/2012 Diarrhea 10/29/2010 01/05/2012 Acute respiratory failure 10/29/2010 Chest pain 02/08/2010 01/05/2012 Dermatitis 02/08/2010 01/05/2012 Overview (10/13/2020): Left foot Dysmenorrhea 12/22/2008 12/25/2008 Ovarian cystic mass 12/22/2008 12/26/19 09 Irregular menstrual cycle 12/22/2008 PCOS (polycystic ovarian syndrome) 12/25/2008 Overview (10/13/2020): Very irregular periods. Type 2 diabetes mellitus, wi th long-term current use of insulin 04/27/2020 History of recurrent miscarr iages, not currently 12/25/2008 Encounters Date Type Department Care Team Description 12/02/2024 External Device Data [facility] ABSTRACTION Provider, Abstract 11/18/2024 External Device Data [facility] ABSTRACTION Provider, Abstract 11/07/2024 External Device Data [facility] ABSTRACTION Provider, Abstract 10/14/2024 External Device Data [facility]STRACTION Provider, Abstract 10/14/2024 External Device Data [facility] ABSTRACTION Provider, Abstract from Last 3 Months Immunizations Immunization Administration Dates Next Due (M-M-R II/PRIORIX)(12 MO UP) MEASLES, MUMPS AND RUBELLA VIRUS VACCINE, 0.5 ML IM/SUBCUT 01/22/1996 (PNEUMOVAX 23)(50 YRS UP) PN EUMOCOCCAL POLYSACCHARIDE (PPV23) 0.5 ML, IM 04/06/2009 (SPIKEVAX) (12 YRS UP PRIMAR Y SERIES) COVID-19 VACCINE - MRNA-1273(PF) 100 MCG/0.5 ML IM SUSP 04/16/2021,09/09/2020,08/12/2020 Dt Dtp Dtap Vaccine 12/18/1995 HIB, Unspecified Formulation 12/18/1995 INFLUENZA VACCINE QUADRIVALENT 6 MOS UP IM 05/21 INFLUENZA VACCINE QUADRIVALE NT 6 MOS UP PF IM 03/21/2021 IPV/OPV 12/18/1995 Influenza Seasonal Unspecifi ed Formulation IM 02/12/2020,03/02/2018 Influenza Vaccine Split 3+ Yrs IM 03/27/2011,,04/06/2009 Family History Medical History Relation Name Comments Hypertension Brother 1 No Known Problems Brother 2 Diabetes Father Hypertension Father Colon Cancer Maternal Grandfather Heart Disease Maternal Grandfather Lung Cancer Maternal Grandfather SMOKER Diabetes Maternal Grandmother Heart Disease Maternal Grandmother Diabetes Mother Heart Disease Mother Hypertension Mother Diabetes Paternal Grandmother Breast Cancer Neg Hx Ovarian Cancer Neg Hx Relation Name Status Comments Brother 1 Alive Brother 2 Alive Daughter NONE Father Alive Maternal Grandfather Maternal Grandmother Alive Mother Alive Paternal Grandfather Paternal Grandmother Sister PAT 1/2 Alive Son NONE Social History Tobacco Use Types Packs/Day Years Used Date Smoking Tobacco: Every Day Cigarettes Smokeless Tobacco: Never Tobacco Cessation:Ready to Q uit: Not Asked; Counseling Given: Not Answered Alcohol Use Standard Drinks/Week Comments No 0 (1 standard drink = 0.6 oz pur e alcohol) Feeling Safe Answer Date Recorded Are you in a relationship wi th someone who hurts you emotionally and/or physically? No 07/15/2024 Comments No Sex and Gender Information Value Date Recorded Sex Assigned at Not on file Legal Sex Female 3:34 AM SALES COMMISSIONS ANALYST Gender Identity Not on file Sexual Orientation Not on file Last Filed Vital Signs Vital Sign Reading Time Taken Comments Blood Pressure 104/69 07/15/2024 11:00 PM SALES COMMISSIONS ANALYST Pulse 79 07/15/2024 11:00 PM SALES COMMISSIONS ANALYST Temperature 35.7 C (96.2 F) 07/15/2024 8:37 PM SALES COMMISSIONS ANALYST Respiratory Rate 10 07/15/2024 11:00 PM SALES COMMISSIONS ANALYST Oxygen Saturation 91% 07/15/2024 11:00 PM SALES COMMISSIONS ANALYST Inhaled Oxygen Concentration - - Weight 111.1 kg (245 lb) 07/15/2024 8:37 PM SALES COMMISSIONS ANALYST Height 162.6 cm (5' 4 ) 07/15/2024 8:37 PM SALES COMMISSIONS ANALYST Body Mass Index 42.05 07/15/2024 8:37 PM SALES COMMISSIONS ANALYST Plan of Treatment Health Maintenance Due Date Last Done Comments HEPATITIS B VACCINES (1 of 3 - 19+ 3-dose series) 1997 Preventative Visit-Managed Medicaid 1997 DTAP/TDAP/TD VACCINES (2 - Tdap) 12/17/2005 12/18/1995 BREAST CANCER SCREENING 01/13/2021 01/14/2020 DIABETES ANNUAL FOOT EXAM 02/04/2022 02/04/2021, 09/2020 DIABETES HBA1C Q 6 MONTHS 05/20/20222021, 07/12/2021, 01/14/2021, Additional history exists DIABETES MICROALBUMIN ANNUAL SCREEN 06/24/2022 06/24/2021, 08/19/2020 LDL CHOLESTEROL ANNUAL 07/12/2022 , 01/14/2021, 07/27/2020 DIABETES ANNUAL RETINAL EXAM 12/23/2022 12/23/2021, 09/24/2020, 03/18/2020 COLORECTAL SCREENING 11/28/2023 Colorectal Cancer Screening 11/28/2023 FIT-DNA Q 3 years 11/28/2023 FIT/FOBT Q 1 year 11/28/2023 Flex Sig/CT Colonography Q 5 years 11/28/2023 COVID-19 Vaccine ( season) 2024 07/05/2023, 03/24/2022, 04/16/2021, Additional history exists INFLUENZA VACCINE (#1) 2025 , 03/21/2021, 02/12/2020, Additional history exists HPV VACCINES Aged Out No longer eligi ble based on patient's age to complete this topic Medical Devices Implanted Type Area Global Chief Experience Officer Device Identifier Shelf Expiration Date Model / Serial / Lot Clip Ligating Vesocclude Med Ti [id number] - [id number] Implanted:Qty: 1 on 07/24/2019 by Juan Pablo Bullock MD Clip N/A: Abdomen [employer] [id number] / / [id number] Mesh Soft Mesh [id number] - [id number] Implanted:11/2019 by Juan Pablo Bullock MD (Quantity not on file) Mesh N/A: Abdomen CR [employer] 02/13/2024 [id number] / / [id number] Procedures Procedure Name Priority Date/Time Associated Diagnosis Comments DIABETES EYE EXAM Routine 12/23/2021 HEMOGLOBIN A1C Routine 11/18/2021 2:41 PM CDT Controlled type 2 diabetes mellitus without complication, with long-term current use of insulin (CMS/HCC) LIPID PANEL Routine 07/12/2021 8:27 AM SALES COMMISSIONS ANALYST Controlled type 2 diabetes mellitus without complication, unspecified whether marine oil terminal superintendent insulin use (CMS/HCC) MICROALBUMIN/CREATI NINE RATIO, RANDOM UR Routine 06/24/2021 2:55 PM SALES COMMISSIONS ANALYST Controlled type 2 diabetes mellitus without complication, unspecified whether marine oil terminal superintendent insulin use (CMS/HCC) MAMMO SCREEN BILAT W OR WO CAD Routine 01/14/2020 11:37 AM CDT Breast cancer screening by mammogram from Last 3 Months or Most Recently Relevant to Health Maintenance Results * DIABETES EYE EXAM (12/23/2021) us Abstract Provider HEALTH MAINTENANCE Final Resul t * (ABNORMAL) HEMOGLOBIN A1C (11/18/2021 2:41 PM CDT) HEMOGLOBIN A1C 6.5(H) <5.7 % of total Hgb [facility] Comment: For someone without known diabetes, a hemoglobin A1c value of 6.5% or greater indicates that they may have diabetes and this should be confirmed with a follow-up test. For someone with known diabetes, a value <7% indicates that their diabetes is well controlled and a value greater than or equal to 7% indicates suboptimal control. A1c targets should be individualized based on duration of diabetes, age, comorbid conditions, and other considerations. Currently, no consensus exists regarding use of hemoglobin A1c for diagnosis of diabetes for children. ESTIMATED AVERAGE GLUCOSE (MG/DL) 140 mg/dL [facility] ESTIMATED AVERAGE GLUCOSE (MMOL/L) 7.7 mmol/L [facility] Comment: [facility] [address] [facility] [place] [address] Josh Solitario D.O., MPH Blood 11/18/2021 2:41 PM CDT 11/19/2021 3:43 AM CDT Siomara Laboy MD CHEMISTRY ORDERABLES Final Result [facility] [phone] * (ABNORMAL) LIPID PANEL (07/12/2021 8:27 AM SALES COMMISSIONS ANALYST) CHOLESTEROL 129 <200 mg/dL [facility] HDL 35(L) > OR = 50 mg/dL [facility] TRIGLYCERIDE 192(H) <150 mg/dL [facility] LDL CALCULATED 68 mg/dL (calc) [facility] Comment: Reference range: <100 Desirable range <100 mg/dL for primary prevention; <70 mg/dL for patients with CHD or diabetic patients with > or = 2 CHD risk factors. LDL-C is now calculated using the Jennifer calculation, which is a validated novel method providing better accuracy than the Friedewald equation in the estimation of LDL-C. Miky BANSAL et al. HUAN. 2013;310(19): 1365-5512 (http://education.Neokinetics.Service Route/faq/YUI664) CHOL/HDL RATIO 3.7 <5.0 (calc) [facility] TOTAL NON-HDL CHOL(LDL+VLDL) 94 <130 mg/dL (calc) [facility] Comment: For patients with diabetes plus 1 major ASCVD risk factor, treating to a non-HDL-C goal of <100 mg/dL (LDL-C of <70 mg/dL) is considered a therapeutic option. Test [facility]formed at: [facility] [address] Josh Solitario D.O., MPH Blood 07/12/2021 8:27 AM SALES COMMISSIONS ANALYST 07/13/2021 4:04 AM SALES COMMISSIONS ANALYST us Siomara Laboy MD CHEMISTRY ORDERABLES Final Result Performing Organization Address [facility] Co de Phone Number [facility] [address] [place] [address] * MICROALBUMIN/CREATININE RATIO, RANDOM UR (06/24/2021 2:55 PM SALES COMMISSIONS ANALYST) Creatinine, Urine 188 20 - 275 mg/dL [facility] MICROALBUMIN, URINE 0.6 See Note: mg/dL [facility] Comment: Reference Range: Reference Range Not established MICROALBUMIN/CREAT RATIO, UR 3 <30 mcg/mg creat [facility] Comment: The ADA defines abnormalities in albumin excretion as follows: Albuminuria Category Result (mcg/mg creatinine) Normal to Mildly increased <30 Moderately increased 30-299 Severely increased > OR = 300 The ADA recommends that at least two of three specimens collected within a 3-6 month period be abnormal before considering a patient to be within a diagnostic category. Test Performed at: [facility] [address] [place] [address] Josh Solitario D.O., MPH Urine URINE SPECIMEN OBTAINED BY CLEAN CATCH PROCEDURE / Unknown 06/24/2021 2:55 PM SALES COMMISSIONS ANALYST 06/25/2021 4:26 AM SALES COMMISSIONS ANALYST us Siomara Laboy MD URINE ORDERABLES Final Resu lt Performing Organization Address [facility]/ZIP Co de Phone Number [facility] [address] [place] [address] * MAMMO SCREEN BILAT W OR WO CAD (01/14/2020 11:37 AM CDT) Anatomical Region Laterality Modality Breast Bilateral Other Narrative 01/14/2020 1:06 PM CDT Bilateral Mammogram Reason for Exam: Screening Comparison: No prior exam(s) for comparison. Findings: Bilateral CC and MLO views were obtained. This examination was reviewed with the aid of a computer-aided detection system(CAD) Breast Composition: There are scattered areas of fibroglandular density. Impression: Negative screening mammogram. Recommendation: Routine annual follow-up Overall Assessment: Birads Category 1: Negative Procedure Note Stewart Guillen MD - 11/18/2020 Bilateral Mammogram Reason for Exam: Screening Comparison: No prior exam(s) for comparison. Findings: Bilateral CC and MLO views were obtained. This examination was reviewed with the aid of a computer-aided detection system(CAD) Breast Composition: There are scattered areas of fibroglandular density. Impression: Negative screening mammogram. Recommendation: Routine annual follow-up Overall Assessment: Birads Category 1: Negative Joe SANTIAGO MAMMO ORDERABLES Final Result from Last 3 Months or Most Recently Relevant to Health Maintenance Insurance [place] * Guarantor: JULISSA AVALOS Account Type Relation to Patient Date of Phone Billing Address Personal/Family [address] [place] [address] [employer] Medicaid Care Teams Bank Manager Relationship Specialty Start Date End Date Siomara Laboy MD [address] [phone] PCP - General Family Practice 04/19/18
[2024-12-19 16:55] LABS: Hematocrit 50.7 % (36-47); Hemoglobin 16.50 g/dL (11.27-16.99); Mean Corpuscular HGB Conc 32.5 g/dL (30-55); Mean Corpuscular Hemoglobin 28.3 pg (27-33); Mean Corpuscular Volume 86.8 fl (85-98); Nucleated Red Blood Cells % 0 %; Platelet Count 210 10^3/cmm (157-399); Red Blood Count 5.84 10^6/uL (3.85-5.65); White Blood Count 11.06 10^3/uL (3.29-11.43)
--- NOTE | 2024-12-19 17:02 | W.ED.ABDPA2 ---
HPI - Abdominal Pain General: Chief Complaint: Abdominal Pain Stated Complaint: stomach pain 3 days, nauseous Time Seen by Provider: 12/19/24 15:35 History of Present Illness: This patient is a 44 year old presenting with three days of sharp, constant abdominal pain. She says that it is made worse by eating - which makes her feel like she is going to throw up - and better when she uses both hands to squish her belly inward - then it hurts more when she lets go. She denies bladder or bowel changes. She denies fever or chills. She has had a slight cough (she is a smoker). She has had numerous surgeries - gallbladder, appendix, endometrioma, hysterectomy and oopherectomy and has mesh for a hernia. She also has a lap band. Her most recent surgery was about 2 years ago. She says this feel a little bit like when she had appendicitis. She is diabetic and says that her blood sugars have been good - between 180 and 220. She has not started or stopped any medications recently. Related Data Home Medications ?Medication ?Instructions ?Recorded ?Confirmed atorvastatin 40 mg tablet (Lipitor) 40 mg PO QPM 09/05/24 12/12/24 insulin lispro 100 unit/mL See Rx Instructions .Route .COMPLEX 09/05/24 12/12/24 subcutaneous pen (Humalog KwikPen (U-100) Insulin) dulaglutide 0.75 mg/0.5 mL 0.75 mg SUBCUT Q7D 10/23/24 12/12/24 subcutaneous pen injector (Trulicity) Previous Rx's ?Medication ?Instructions ?Recorded omeprazole 20 mg capsule,delayed 20 mg PO DAILY #90 caps 05/30/24 release empagliflozin 25 mg tablet 25 mg PO DAILY #90 tabs 09/24/24 (Jardiance) tizanidine 4 mg tablet 4 mg PO TID PRN Muscle Spasm #60 09/24/24 tabs insulin glargine 100 unit/mL (3 40 unit (0.4 mL) SUBCUT QAM #45 mL 10/24/24 mL) subcutaneous pen (Lantus Solostar U-100 Insulin) blood-glucose sensor (THEMA G7 #3 ea 10/31/24 Sensor device) gabapentin 300 mg capsule See Rx Instructions .Route 11/06/24 .COMPLEX #120 caps tramadol 50 mg tablet 50 mg PO TID PRN pain #90 tabs 11/06/24 citalopram 20 mg tablet 20 mg PO QAM #30 tabs 11/18/24 prazosin 2 mg capsule 4 mg (2 x 2 mg) PO BEDTIME #60 caps 11/18/24 quetiapine 100 mg tablet (Seroquel) 100 mg PO .HS #30 tabs 11/18/24 carvedilol 3.125 mg tablet 3.125 mg PO BID #60 tabs 12/05/24 fluconazole 150 mg tablet 150 mg PO Q3D #7 tabs 12/08/24 tirzepatide (weight loss) 2.5 2.5 mg (0.5 mL) SUBCUT .qwk #2 mL 12/15/24 mg/0.5 mL subcutaneous pen injector (Zepbound) Allergies Allergy/AdvReac Type Severity Reaction Status Date / Time metformin Allergy Severe ADR-Diarrhe Verified 12/19/24 15:43 a codeine Allergy Intermediate HALLUCINATI Verified 12/19/24 15:43 ONS latex Allergy Intermediate HIVES Verified 12/19/24 15:43 aspirin Allergy RASH Verified 12/19/24 15:43 oxycodone (From Percocet) Allergy RASH Verified 12/19/24 15:43 topiramate (From Topamax) Allergy RASH Verified 12/19/24 15:43 sumatriptan AdvReac Intermediate SOB; Verified 12/19/24 15:43 WHEEZING; DIZZINESS PFSH ED PFSH: Medical History Family history of colon cancer in father On combination antipsychotic drug therapy Instability of left knee joint Primary osteoarthritis of left knee GERD without esophagitis Calculus of kidney L 4.7mm UVP junction on CT Encounter for chronic pain management tramadol for chronic back pain Pain management contract signed tramadol; 10.9.24 HOMER (obstructive sleep apnea) on BIPAP Diabetic neuropathy associated with type 2 diabetes mellitus Uncontrolled type 2 diabetes mellitus with insulin therapy Facet arthritis, degenerative, lumbar spine Atherosclerosis of chilkoot coronary artery without angina pectoris Insomnia Urolithiasis Morbid obesity Bipolar 2 disorder Post-traumatic stress disorder, chronic Nicotine dependence, cigarettes, uncomplicated Psychiatric care Major depressive disorder without psychotic features Dyslipidemia Low back pain with sciatica Hypothyroidism Surgical History Hx of percutaneous transluminal coronary angioplasty History of total knee arthroplasty Right--has had 2 TKA--first in [facility]--got infected then had another TKA at [facility] Hx laparoscopic cholecystectomy 03/01/23 Dr. Alarcon Hx of colonoscopy 2009 History of hernia repair umbilical and abdominal R side H/O: hysterectomy w/ BSO; had precancerous cells age 14, then had hyst for menometrorrhagia Hx of appendectomy 2005 Hx of laparoscopic gastric banding 2009 Family History Mother CAD (coronary artery disease) Stroke Father CAD (coronary artery disease) Colon cancer Other Cancer Diabetes Hypertension Social History Smoking and tobacco/nicotine status: current every day tobacco/nicotine user cigarettes Packs smoked per day: 1.5 Years cigarettes smoked: 28 Alcohol intake: never Substance/Drug Use: never Household members: significant other Housing: House Marital status: / Number of children: 0 Current occupational status: employed Current occupation: [employer] Female Reproductive History: Spontaneous abortions: No Physical Exam Const: COMMON NORMALS: no acute distress, patient oriented x3, no limitations and alert GENERAL APPEARANCE: cooperative and comfortable HENMT: HEAD & SCALP: normal to inspection FACE & SINUS: normal facial exam OTHER: edentulous Eye: GENERAL EYE: appearance normal, both eyes and all related structures Neck/C-Spine: COMMON NORMALS: supple, no meningeal signs and no JVD Chest: COMMONS NORMALS: normal inspection of the chest Resp: COMMON NORMALS: normal respiratory effort, No use of accessory muscles and clear to auscultation bilaterally AUSCULTATION: clear to auscultation bilaterally Cardio: COMMON NORMALS: no JVD, regular rate, regular rhythm and No murmurs present (Cardio) RATE: regular rate RHYTHM: regular rhythm GI: AUSCULTATION: Yes Hyperactive bowel sounds present PALPATION: Yes Tenderness to palpation present (GI) (diffusely) PERCUSSION: tympanic to percussion Back/Pelvis: COMMON NORMALS: thoracic and lumbar spine normal to inspection Extremity: COMMON NORMALS: normal to inspection Neuro: COMMON NORMALS: patient oriented x3, moves all extremities, no focal motor deficits and no sensory deficits noted SENSORIUM/ORIENTATION: Yes alert MENINGEAL SIGNS: Yes no meningeal signs Psych: COMMON NORMALS: mental status grossly normal, cooperative and normal affect Skin: COMMON NORMALS: no rashes or lesions noted and turgor normal GENERAL SKIN EXAM: no rashes or lesions noted and turgor normal Course Vital Signs: Vital signs: Vital Signs Temperature 98.1 F 12/19/24 15:39 Pulse Rate 87 12/19/24 20:23 Respiratory Rate 20 H 12/19/24 19:53 Blood Pressure 151/94 12/19/24 20:23 Pulse Oximetry 90 12/19/24 20:23 Oxygen Delivery Me thod Room Air 12/19/24 19:30 MDM - Abdominal Pain Medical Decision Making Patient with extensive surgical history and medical history. Presenting with abdominal pain - but labs and CT offer no explanation. She improved while in the ED and she felt well enough to go home. She has zofran and reglan at home. She understands that if her pain worsens or she is not able to keep down flood or fluids, that she should return to the ED. Lab Data 12/19/24 16:46 12/19/24 16:46 Labs/Radiology: Radiology Impressions Abdomen/Pelvis CT 12/19/24 17:39 IMPRESSION: 1. No acute pathologic findings in the abdomen/pelvis. 2. Stable appearance of gastric band compared to 09/05/2024. Laboratory Results WBC 11.06 10^3/uL (3.29-11.43) 12/19/24 16:46 RBC 5.84 10^6/uL (3.85-5.65) H 12/19/24 16:46 Hgb 16.50 g/dL (11.27-16.99) 12/19/24 16:46 Hct 50.7 % (36-47) H 12/19/24 16:46 MCV 86.8 fl (85-98) 12/19/24 16:46 MCH 28.3 pg (27-33) 12/19/24 16:46 MCHC 32.5 g/dL (30-55) 12/19/24 16:46 RDW 13.1 % (12.1-15.1) 12/19/24 16:46 Plt Count 210 10^3/cmm (157-399) 12/19/24 16:46 MPV 12.7 fL (7.4-10.4) H 12/19/24 16:46 Neut % (Auto) 61.6 % 12/19/24 16:46 Lymph % (Auto) 29.2 % 12/19/24 16:46 [place] % (Auto) 6.1 % 12/19/24 16:46 Eos % (Auto) 2.0 % 12/19/24 16:46 Baso % (Auto) 0.6 % 12/19/24 16:46 Neut # (Auto) 6.81 10^3/uL (1.8-7.7) 12/19/24 16:46 Lymph # (Auto) 3.2 10^3/uL (0.8-4.8) 12/19/24 16:46 [place] # (Auto) 0.7 10^3/uL (0.2-0.9) 12/19/24 16:46 Eos # (Auto) 0.2 10^3/uL (0.0-0.8) 12/19/24 16:46 Baso # (Auto) 0.1 10^3/uL (0.0-0.1) 12/19/24 16:46 Nucleated RBC % (auto) 0 % 12/19/24 16:46 Nucleated RBCs # 0.0 /100WBC 12/19/24 16:46 Sodium 136 mmol/L (136-145) 12/19/24 16:46 Potassium 3.6 mmol/L (3.5-5.1) 12/19/24 16:46 Chloride 98 mmol/L (98-107) 12/19/24 16:46 Carbon Dioxide 23 mmol/L (22-29) 12/19/24 16:46 Anion Gap 18.6 (5-19) 12/19/24 16:46 BUN 10 mg/dL (6-20) 12/19/24 16:46 Creatinine 0.6 mg/dL (0.5-0.9) 12/19/24 16:46 GFR Calculation 107.6 mL/min (90-130) 12/19/24 16:46 Glucose 203 mg/dL (65-115) H 12/19/24 16:46 Calculated Osmolality 287 mOsm/kg (285-295) 12/19/24 16:46 Calcium 9.3 mg/dL (8.5-10.5) 12/19/24 16:46 Total Bilirubin 0.3 mg/dL (0.15-1.2) 12/19/24 16:46 AST 12 U/L (0-32) 12/19/24 16:46 ALT 15 U/L (0-33) 12/19/24 16:46 Alkaline Phosphatase 148 U/L (35-105) H 12/19/24 16:46 Total Protein 7.2 g/dL (6.6-8.7) 12/19/24 16:46 Albumin 3.9 g/dL (3.5-5.2) 12/19/24 16:46 Globulin 3.3 g/dL (1.3-4.6) 12/19/24 16:46 Lipase 30 U/L (13-60) 12/19/24 16:46 Urine Color Yellow (Yellow) 12/19/24 16:30 Urine Appearance Clear (CLEAR) 12/19/24 16:30 Urine pH 5.5 (5-7) 12/19/24 16:30 Ur Specific [place] 1.040 (1.005-1.030) H 12/19/24 16:30 Urine Protein Negative (Negative) 12/19/24 16:30 Urine Glucose (UA) 3+ (Normal) H 12/19/24 16:30 Urine Ketones Negative (Negative) 12/19/24 16:30 Urine Blood Negative (Negative) 12/19/24 16:30 Urine Nitrate Negative (Negative) 12/19/24 16:30 Urine Bilirubin Negative (Negative) 12/19/24 16:30 Urine Urobilinogen 0.2 mg/dL (Negative) 12/19/24 16:30 Ur Leukocyte Esterase Negative (Negative) 12/19/24 16:30 Urine RBC 0-2 /hpf (0-2) 12/19/24 16:30 Urine WBC 0-5 /hpf (0-5) 12/19/24 16:30 Ur Squamous Epith Cells 0-5 /hpf (0-5) 12/19/24 16:30 Amorphous Sediment Not Reportable 12/19/24 16:30 Urine Bacteria None seen /hpf (NONE) 12/19/24 16:30 Hyaline Casts 0.40 /lpf 12/19/24 16:30 All radiology interpretation(s) finalized by discharge Discharge Plan Discharge Patient Disposition: Home Clinical Impression: Abdominal pain, Diabetes mellitus with insulin therapy Condition: Stable Prescriptions: No Action fluconazole 150 mg tablet 150 mg PO Q3D Qty: 7 0RF quetiapine [Seroquel] 100 mg tablet 100 mg PO .HS Qty: 30 2RF prazosin 2 mg capsule 4 mg PO BEDTIME Qty: 60 2RF citalopram 20 mg tablet 20 mg PO QAM Qty: 30 2RF omeprazole 20 mg capsule,delayed release(DR/EC) 20 mg PO DAILY Qty: 90 3RF gabapentin 300 mg capsule See Rx Instructions .ROUTE .COMPLEX Qty: 120 5RF Dose Instruction: TAKE 1 CAPSULE BY MOUTH THREE TIMES DAILY AT 9 AM, NOON, AND 8 PM Rx Instructions: Take 1 capsule (300mg) by mouth at 9am and 12pm and two capsules (600mg) at bedtime. tramadol 50 mg tablet 50 mg PO TID PRN (Reason: pain) Qty: 90 3RF tizanidine 4 mg tablet 4 mg PO TID PRN (Reason: Muscle Spasm) Qty: 60 2RF Jardiance 25 mg tablet 25 mg PO DAILY Qty: 90 1RF Rx Instructions: on insulin, failed metformin; uncontrolled (DME) Dexcom G7 Sensor Device See Rx Instructions .MEDSUPPLY Qty: 3 12RF Rx Instructions: Change every 10 days; Use as directed to check blood sugar carvedilol 3.125 mg tablet 3.125 mg PO BID Qty: 60 5RF Zepbound 2.5 mg/0.5 mL pen injector 2.5 mg SUBCUT .qwk Qty: 2 2RF atorvastatin [Lipitor] 40 mg tablet 40 mg PO QPM insulin lispro [Humalog KwikPen Insulin] 100 unit/mL insulin pen See Rx Instructions .ROUTE .COMPLEX Rx Instructions: Per sliding scale; up to 30 units three times daily with meals. Trulicity 0.75 mg/0.5 mL pen injector 0.75 mg SUBCUT Q7D insulin glargine [Lantus Solostar U-100 Insulin] 100 unit/mL (3 mL) insulin pen 40 unit SUBCUT QAM Qty: 45 0RF Discharge Orders: Discharge ED (Routine); Ordered 12/19/24 Ordered By: Yesi Orozco Referrals: Mikaela Hernadez MD [Primary Care Provider, Family Practice] Patient Instructions: Abdominal Pain (ED), Opioid Safety, Pain Management, Patient Portal & Kalyn Instructions Activity Restrictions/Additional Instructions: Return to the ED if pain is not improving within a day or two - or for worse pain and vomiting. Print Language: Costa Rican Coding Level of Care Code ED [employer] Teacher for Alcides Biggs
[2024-12-19 17:05] LABS: Glucose Urine UA 3+ (Normal); Nitrate Urine Negative (Negative)
[2024-12-19 17:11] LABS: Add Urine Microscopic? YES
[2024-12-19 17:13] LABS: Specific Gravity, Urine 1.040 (1.005-1.030)
[2024-12-19 17:24] LABS: Alanine Aminotransferase 15 U/L (0-33); Albumin Level 3.9 g/dL (3.5-5.2); Alkaline Phosphatase 148 U/L (35-105); Anion Gap 18.6 (5-19); Aspartate Amino Transferase 12 U/L (0-32); Blood Urea Nitrogen 10 mg/dL (6-20); Calcium 9.3 mg/dL (8.5-10.5); Carbon Dioxide 23 mmol/L (22-29); Chloride 98 mmol/L (98-107); Creatinine Clr Calc Pharmacy 145.6022; Globulin 3.3 g/dL (1.3-4.6); Glucose 203 mg/dL (65-115); Lipase 30 U/L (13-60); Osmolality Calculated 287 mOsm/kg (285-295); Potassium 3.6 mmol/L (3.5-5.1); Sodium 136 mmol/L (136-145); Total Protein 7.2 g/dL (6.6-8.7)
--- NOTE | 2024-12-19 17:39 | CTR_ITS ---
PROCEDURE INFORMATION: Exam: CT Abdomen And Pelvis With Contrast Exam date and time: 12/19/2024 5:58 PM Age: 44 years old Clinical indication: Abdominal pain; Generalized; Prior surgery; Surgery date: 6+ months; Surgery type: Lap band. Hernia repair. Gb. Appy. Total hysterectomy. C/O diffuse abd pain with nausea x 3 days TECHNIQUE: Imaging protocol: Computed tomography of the abdomen and pelvis with contrast. Radiation optimization: All CT scans at this facility use at least one of these dose optimization techniques: automated exposure control; mA and/or kV adjustment per patient size (includes targeted exams where dose is matched to clinical indication); or iterative reconstruction. Contrast material: OMNI 350; Contrast volume: 100 ml; Contrast route: INTRAVENOUS (IV); COMPARISON: CT abdomen pelvis w con* [id number] 09/05/2024 7:38 AM RADIATION DOSE METRICS: Total DLP (mGy-cm): 1172.54 FINDINGS: Lungs: Visualized lung bases are clear. Liver: The liver is unremarkable. Gallbladder and biliary ducts: Status post cholecystectomy. No significant biliary ductal dilation. Pancreas: Mild atrophy of the pancreas. No pancreatic ductal dilation. Spleen: The spleen is unremarkable. Adrenal glands: The adrenal glands are unremarkable. Kidneys and ureters: Kidneys are normal. No hydronephrosis or nephrolithiasis. Stomach and bowel: Stable appearance of gastric band compared to 09/05/2024. Mild colonic diverticulosis. No focal evidence of acute diverticulitis. No evidence of bowel obstruction. Appendix: No evidence of acute appendicitis. Intraperitoneal space: No extraluminal free air. No significant free fluid in the abdomen or pelvis. Vasculature: Mild scattered calcific atheromatous disease of the abdominal aorta and its major branches. No abdominal aortic aneurysm. Lymph nodes: No distinct pathologically enlarged lymphadenopathy. Urinary bladder: Urinary bladder is within normal limits. Reproductive: Uterus is absent. Bones/joints: No acute osseous findings. Soft tissues: Superficial soft tissues demonstrate postsurgical changes of remote ventral midline incision. CT/CT abdomen pelvis w con* [id number] IMPRESSION: 1. No acute pathologic findings in the abdomen/pelvis. 2. Stable appearance of gastric band compared to 09/05/2024.
[2024-12-19] MEDS: fentaNYL 50 mcg/mL INJ 2mL IVP (19:53)
== END 2024-12-19 20:24 | disposition home or self-care (01) ==
PROVIDERS: Family Medicine; Emergency Provider Emergency Medicine; PCP Family Medicine
DX: R10.9 Unspecified abdominal pain (principal); E11.9 Type 2 diabetes mellitus without complications; Z97.4 Presence of external hearing-aid; F17.210 Nicotine dependence, cigarettes, uncomplicated; Z79.4 Long term (current) use of insulin
CPT/HCPCS: 36415; 74177; 80053; 81001; 83690; 85025; 96374; 99285; J3010; Q0169

== ENCOUNTER 2025-01-10 16:17 | Emergency (ER) | payer MEDICAID, SELFPAY ==
[2024-10-24 15:22] VITALS: BP 117/82; BMI 42.7
--- OUTSIDE RECORDS SUMMARY | 2025-01-10 16:22 | XMS_ITS | Clinical Summary ---
Author Organization [facility] Address [address] Alvarez: Epic Prelude ADT MICHELLE LOZADA [address] Care Team Providers Care Canteen Manager Name Role Phone Siomara Laboy MD Primary Care Provider [phone] Allergies Active Allergy Reactions Criticality Noted Date [...] Fuentes 1 Active naloxone (Narcan) 4 mg/spray [place], Non-Aerosol [address] time only[address] Fuentes 1 Active fluticasone propionate (FLONASE) 50 mcg/spray [place], Suspension nasal inhaler SHAKE LIQUID AND USE 2 SPRAYS IN EACH NOSTRIL DAILY 16 Gram 1 1 Active LEVOTHYROXINE 88 mcg tablet TAKE 1 TABLET BY MOUTH EVERY DAY RUBBER GRINDER 90 Tablet 1 1 Active diphenhydrAMIN E [...] differently: 300 mgOral DAILY AT BEDTIME,Dr Rivers [facility], Reported on 07/29/2021 propranoloL (INDERAL) 10 mg tablet TAKE 1 TABLET(10 MG) BY MOUTH TWICE DAILY 180 Tablet 1 2 Active metFORMIN (GLUCOPHAGE) 1,000 mg tablet TAKE 1 TABLET(1000 MG) BY MOUTH TWICE DAILY WITH MEALS 180 Tablet 1 2 Active prazosin (MINIPRESS) 2 mg capsule Take 2 mg by mouth daily at bedtime. Dr. Rivers [facility] Active lancets (OneTouch Delica Plus Lancet) 30 [...] Encounters Date Type Department Care Team Description 12/31/2024 External Device Data [facility]STRACTION Provider, Abstract 12/02/2024 External Device Data [facility]CTION Provider, [...] drink = 0.6 oz pur e alcohol) Comments No Sex and Gender Information Value Date Recorded Sex Assigned at Not on file Legal Sex Female 3:34 AM VENTILATOR SPECIALIST Gender Identity Not on file Sexual Orientation Not on file Last Filed Vital Signs Vital Sign Reading Time Taken Comments Blood Pressure 104/69 07/15/2024 11:00 PM VENTILATOR SPECIALIST Pulse 79 07/15/2024 11:00 PM VENTILATOR SPECIALIST Temperature 35.7 C (96.2 F) 07/15/2024 8:37 PM VENTILATOR SPECIALIST Respiratory Rate 10 07/15/2024 11:00 PM VENTILATOR SPECIALIST Oxygen Saturation 91% 07/15/2024 11:00 PM VENTILATOR SPECIALIST Inhaled Oxygen Concentration - - Weight 111.1 kg (245 lb) 07/15/2024 8:37 PM VENTILATOR SPECIALIST Height 162.6 cm (5' 4 ) 07/15/2024 8:37 PM VENTILATOR SPECIALIST Body Mass Index 42.05 07/15/2024 8:37 PM VENTILATOR SPECIALIST Plan of Treatment Health Maintenance Due Date [...] Additional history exists INFLUENZA VACCINE (#1) 2025 2, 03/21/2021, 02/12/2020, Additional history exists HPV VACCINES Aged Out No longer eligi ble based on patient's age to complete this topic Medical Devices Implanted Type Area Dance Hall Hostess Device Identifier Shelf Expiration Date Model / Serial / Lot Clip Ligating Vesocclude Med Ti [id number] - [id number] Implanted:Qty: 1 on 07/24/2019 by Juan Pablo Bullock MD Clip N/A: Abdomen [employer] [id number] / / [id number] Mesh Soft Mesh [id number] - [id number] Implanted:11/2019 by Juan Pablo Bullock MD (Quantity not on file) Mesh N/A: Abdomen CR [employer]ARD[employer] 02/13/2024 [id number] / / [id number] Procedures Procedure Name Priority Date/Time Associated Diagnosis Comments DIABETES EYE EXAM Routine 12/23/2021 HEMOGLOBIN A1C Routine 11/18/2021 2:41 PM CDT Controlled type 2 diabetes mellitus without complication, with long-term current use of insulin (CMS/HCC) LIPID PANEL Routine 07/12/2021 8:27 AM VENTILATOR SPECIALIST Controlled type 2 diabetes mellitus without complication, unspecified whether detention insulin use (CMS/HCC) MICROALBUMIN/CREATI NINE RATIO, RANDOM UR Routine 06/24/2021 2:55 PM VENTILATOR SPECIALIST Controlled type 2 diabetes mellitus without complication, unspecified whether terminal operator insulin use (CMS/[facility]) MAMMO SCREEN BILAT W OR WO CAD Routine 01/14/2020 11:37 AM CDT Breast cancer screening by mammogram from Last 3 Months or Most Recently Relevant to Health Maintenance Results * DIABETES EYE EXAM (12/23/2021) us Abstract Provider HEALTH MAINTENANCE Final Resul t * (ABNORMAL) HEMOGLOBIN A1C (11/18/2021 2:41 PM CDT) HEMOGLOBIN A1C 6.5(H) <5.7 % of total Hgb [facility] Comment: For someone without known diabetes, [...] children. ESTIMATED AVERAGE GLUCOSE (MG/DL) 140 mg/dL [facility] ESTIMATED AVERAGE GLUCOSE (MMOL/L) 7.7 mmol/L [facility] Comment: Test Performed at: [facility] [id number] [place] [address] Josh Solitario D.O., MPH Blood 11/18/2021 2:41 PM CDT 11/19/2021 3:43 AM CDT Siomara Laboy MD CHEMISTRY ORDERABLES Final Result [facility] [phone] * (ABNORMAL) LIPID PANEL (07/12/2021 8:27 AM VENTILATOR SPECIALIST) CHOLESTEROL 129 <200 mg/dL [facility] HDL 35(L) > OR = 50 mg/dL [facility] TRIGLYCERIDE 192(H) <150 mg/dL [facility] LDL CALCULATED 68 mg/dL (calc) [facility] Comment: Reference range: <100 Desirable range <100 mg/dL for primary prevention; <70 mg/dL for patients with CHD or diabetic patients with > or = 2 CHD risk factors. LDL-C is now calculated using the Jennifer calculation, which is a validated novel method providing better accuracy than the Friedewald equation in the estimation of LDL-C. Miky BANSAL et al. HUAN. 2013;310(19): 6030-9641 (http://education.Bomboard.TV4 Entertainment/faq/FEN362) CHOL/HDL RATIO 3.7 <5.0 (calc) [facility] TOTAL NON-HDL CHOL(LDL+VLDL) 94 <130 mg/dL (calc) [facility] Comment: For patients with diabetes plus 1 major ASCVD risk factor, treating to a non-HDL-C goal of <100 mg/dL (LDL-C of <70 mg/dL) is considered a therapeutic option. Test Performed at: [facility] [id number] [place] [address] Josh Solitario D.O., MPH Blood 07/12/2021 8:27 AM VENTILATOR SPECIALIST 07/13/2021 4:04 AM VENTILATOR SPECIALIST us Siomara Laboy MD CHEMISTRY ORDERABLES Final Result Performing Organization Address [facility] de Phone Number [facility] [address] [place] [address] * MICROALBUMIN/CREATININE RATIO, RANDOM UR (06/24/2021 2:55 PM VENTILATOR SPECIALIST) Creatinine, Urine 188 20 - 275 mg/dL [facility] MICROALBUMIN, URINE 0.6 See Note: mg/dL [facility] Comment: Reference Range: Reference Range Not established MICROALBUMIN/CREAT RATIO, UR 3 <30 mcg/mg creat [facility] Comment: The ADA defines abnormalities in albumin excretion as follows: Albuminuria Category Result (mcg/mg creatinine) Normal to Mildly increased <30 Moderately increased 30-299 Severely increased > OR = 300 The ADA recommends that at least two of three specimens collected within a 3-6 month period be abnormal before considering a patient to be within a diagnostic category. Test Performed at: [facility] [id number] [place] [address] Josh Solitario D.O., MPH Urine URINE SPECIMEN OBTAINED BY CLEAN CATCH PROCEDURE / Unknown 06/24/2021 2:55 PM VENTILATOR SPECIALIST 06/25/2021 4:26 AM VENTILATOR SPECIALIST us Siomara Laboy MD URINE ORDERABLES Final Resu lt Performing Organization Address [facility] Co de Phone Number [facility] [address] [place] [address] * MAMMO SCREEN BILAT W OR WO [...] Recently Relevant to Health Maintenance Insurance [place] * Guarantor: JULISSA AVALOS Account Type Relation to Patient Date of Phone Billing Address Personal/Family [address] [place] [address] RX [employer]ING Medicaid Care Teams Canteen Manager Relationship Specialty Start Date End Date Siomara Laboy MD [address] [id number] PCP - General Family Practice 04/19/18
[2025-01-10 16:23] VITALS: BP 122/82; PULSE 84; RESP 18; O2SAT 96; BMI 43.0
[2025-01-10 18:08] VITALS: BP 130/86; PULSE 74; RESP 15; O2SAT 98
--- NOTE | 2025-01-10 18:26 | CTR_ITS ---
PROCEDURE INFORMATION: Exam: CT Head Without Contrast Exam date and time: 01/10/2025 6:33 PM Age: 44 years old Clinical indication: Pain; Headache; C/O LUND with dizziness; Additional info: Headache, dizzy TECHNIQUE: Imaging protocol: Computed tomography of the head without contrast. Radiation optimization: All CT scans at this facility use at least one of these dose optimization techniques: automated exposure control; mA and/or kV adjustment per patient size (includes targeted exams where dose is matched to clinical indication); or iterative reconstruction. COMPARISON: MR head wo con* [id number] 10/23/2024 12:38 PM RADIATION DOSE METRICS: Total DLP (mGy-cm): 1070.14 FINDINGS: Brain: No acute infarction, hemorrhage, mass, or extra-axial fluid collection is identified. No midline shift. Cerebral ventricles: No hydrocephalus. Paranasal sinuses: Paranasal sinuses are grossly clear. Mastoid air cells: Mastoid air cells are grossly clear. Bones: Calvarium appears intact. Soft tissues: Unremarkable. CT/CT head wo con* [id number] IMPRESSION: No acute intracranial abnormality.
[2025-01-10 18:33] LABS: Hematocrit 49.2 % (36-47); Hemoglobin 16.30 g/dL (11.27-16.99); Mean Corpuscular HGB Conc 33.1 g/dL (30-55); Mean Corpuscular Hemoglobin 28.3 pg (27-33); Mean Corpuscular Volume 85.4 fl (85-98); Nucleated Red Blood Cells % 0 %; Platelet Count 194 10^3/cmm (157-399); Red Blood Count 5.76 10^6/uL (3.85-5.65); White Blood Count 10.12 10^3/uL (3.29-11.43)
[2025-01-10] MEDS: metoclopramide 5 mg/mL SDV 2 mL 10 MG IVP (18:41)
[2025-01-10 18:44] VITALS: RESP 18; O2SAT 95
[2025-01-10] MEDS: morphine 4 mg/mL SDV 1 mL IVP (18:44)
[2025-01-10 18:45] VITALS: BP 119/92; PULSE 74; PULSE 76; RESP 18; RESP 20; O2SAT 88; O2SAT 95
[2025-01-10 18:47] LABS: INR 0.86 (0.8-1.2); Prothrombin Time 12.40 SECONDS (12.1-14.9)
[2025-01-10 18:54] LABS: Alanine Aminotransferase 18 U/L (0-33); Albumin Level 4.1 g/dL (3.5-5.2); Alkaline Phosphatase 144 U/L (35-105); Anion Gap 13.8 (5-19); Aspartate Amino Transferase 12 U/L (0-32); Blood Urea Nitrogen 8 mg/dL (6-20); Calcium 9.2 mg/dL (8.5-10.5); Carbon Dioxide 27 mmol/L (22-29); Chloride 101 mmol/L (98-107); Creatinine Clr Calc Pharmacy 144.9312; Globulin 3.1 g/dL (1.3-4.6); Glucose 203 mg/dL (65-115); Osmolality Calculated 290 mOsm/kg (285-295); Potassium 3.8 mmol/L (3.5-5.1); Sodium 138 mmol/L (136-145); Total Protein 7.2 g/dL (6.6-8.7)
--- NOTE | 2025-01-10 19:35 | W.ED.HA ---
HPI - Headache General: Chief Complaint: Headache Stated Complaint: headache / bloody nose Time Seen by Provider: 01/10/25 17:58 History of Present Illness: 44-year-old female complaining of headache to both sides and the back of her head. She says it started earlier today, after she had bent down and raised up. She says that she had blood from both of her nostrils at that point which is resolved now. Her headache is worsened since that time. No vomiting. She is nauseated. No significant dizziness. No language or vision problems. No weakness. Related Data Home Medications ?Medication ?Instructions ?Recorded ?Confirmed atorvastatin 40 mg tablet (Lipitor) 40 mg PO QPM 09/05/24 12/12/24 insulin lispro 100 unit/mL See Rx Instructions .Route .COMPLEX 09/05/24 12/12/24 subcutaneous pen (Humalog KwikPen (U-100) Insulin) Previous Rx's ?Medication ?Instructions ?Recorded omeprazole 20 mg capsule,delayed 20 mg PO DAILY #90 caps 05/30/24 release empagliflozin 25 mg tablet 25 mg PO DAILY #90 tabs 09/24/24 (Jardiance) insulin glargine 100 unit/mL (3 40 unit (0.4 mL) SUBCUT QAM #45 mL 10/24/24 mL) subcutaneous pen (Lantus Solostar U-100 Insulin) blood-glucose sensor ([employer] G7 #3 ea 10/31/24 Sensor device) gabapentin 300 mg capsule See Rx Instructions .Route 11/06/24 .COMPLEX #120 caps tramadol 50 mg tablet 50 mg PO TID PRN pain #90 tabs 11/06/24 citalopram 20 mg tablet 20 mg PO QAM #30 tabs 11/18/24 prazosin 2 mg capsule 4 mg (2 x 2 mg) PO BEDTIME #60 caps 11/18/24 quetiapine 100 mg tablet (Seroquel) 100 mg PO .HS #30 tabs 11/18/24 carvedilol 3.125 mg tablet 3.125 mg PO BID #60 tabs 12/05/24 fluconazole 150 mg tablet 150 mg PO Q3D #7 tabs 12/08/24 tirzepatide (weight loss) 2.5 2.5 mg (0.5 mL) SUBCUT .qwk #2 mL 12/15/24 mg/0.5 mL subcutaneous pen injector (Zepbound) tizanidine 4 mg tablet 4 mg PO TID PRN Muscle Spasm #60 12/26/24 tabs dulaglutide 0.75 mg/0.5 mL See Rx Instructions .Route 01/05/25 subcutaneous pen injector .COMPLEX #2 mL (Trulicity) Allergies Allergy/AdvReac Type Severity Reaction Status Date / Time metformin Allergy Severe ADR-Diarrhe Verified 12/19/24 15:43 a codeine Allergy Intermediate HALLUCINATI Verified 12/19/24 15:43 ONS latex Allergy Intermediate HIVES Verified 12/19/24 15:43 aspirin Allergy RASH Verified 12/19/24 15:43 oxycodone (From Percocet) Allergy RASH Verified 12/19/24 15:43 topiramate (From Topamax) Allergy RASH Verified 12/19/24 15:43 sumatriptan AdvReac Intermediate SOB; Verified 12/19/24 15:43 WHEEZING; DIZZINESS PFSH ED PFSH: Medical History Family history of colon cancer in father On combination antipsychotic drug therapy Instability of left knee joint Primary osteoarthritis of left knee GERD without esophagitis Calculus of kidney L 4.7mm UVP junction on CT Encounter for chronic pain management tramadol for chronic back pain Pain management contract signed tramadol; 10.9.24 HOMER (obstructive sleep apnea) on BIPAP Diabetic neuropathy associated with type 2 diabetes mellitus Uncontrolled type 2 diabetes mellitus with insulin therapy Facet arthritis, degenerative, lumbar spine Atherosclerosis of [place] coronary artery without angina pectoris Insomnia Urolithiasis Morbid obesity Bipolar 2 disorder Post-traumatic stress disorder, chronic Nicotine dependence, cigarettes, uncomplicated Psychiatric care Major depressive disorder without psychotic features Dyslipidemia Low back pain with sciatica Hypothyroidism Surgical History Hx of percutaneous transluminal coronary angioplasty History of total knee arthroplasty Right--has had 2 TKA--first in [facility]--got infected then had another TKA at [facility] Hx laparoscopic cholecystectomy 03/01/23 Dr. Alarcon Hx of colonoscopy 2009 History of hernia repair umbilical and abdominal R side H/O: hysterectomy w/ BSO; had precancerous cells age 14, then had hyst for menometrorrhagia Hx of appendectomy 2005 Hx of laparoscopic gastric banding 2009 Family History Mother CAD (coronary artery disease) Stroke Father CAD (coronary artery disease) Colon cancer Other Cancer Diabetes Hypertension Social History Smoking and tobacco/nicotine status: current every day tobacco/nicotine user cigarettes Packs smoked per day: 1.5 Years cigarettes smoked: 28 Alcohol intake: never Substance/Drug Use: never Household members: significant other Housing: House Marital status: / Number of children: 0 Current occupational status: employed Current occupation: [employer] Female Reproductive History: Spontaneous abortions: No Physical Exam Const: COMMON NORMALS: no acute distress, patient oriented x3 and alert GENERAL APPEARANCE: cooperative; not ill appearing and not frail appearing HENMT: COMMON NORMALS: normocephalic, atraumatic and Normal external nose present HEAD & SCALP: normocephalic and atraumatic FACE & SINUS: normal facial exam and face symmetric NOSE: Normal external nose present Eye: COMMON NORMALS: Equal, round and reactive pupils present and EOMs intact bilaterally PUPIL: Yes Equal, round and reactive pupils present Neck/C-Spine: COMMON NORMALS: no meningeal signs GENERAL: Yes trachea midline Chest: CHEST: Yes Symmetrical chest wall rise Resp: COMMON NORMALS: normal respiratory effort, No retractions, No use of accessory muscles and clear to auscultation bilaterally AUSCULTATION: clear to auscultation bilaterally Cardio: COMMON NORMALS: regular rate and regular rhythm RATE: regular rate RHYTHM: regular rhythm GI: COMMON NORMALS: Normal to inspection, nondistended, normoactive bowel sounds present Extremity: COMMON NORMALS: no pedal edema Neuro: EMELINA COMA SCALE: document GCS findings [place] coma scale eye opening: Spontaneous [place] coma scale verbal response: Orientated Emelina coma scale motor response: Obey commands Emelina coma scale total score: 15 COMMON NORMALS: patient oriented x3 SENSORIUM/ORIENTATION: Yes alert MENINGEAL SIGNS: Yes no meningeal signs and No nuccal rigidity CRANIAL NERVES: Yes CN normal except as noted COORDINATION/BALANCE: uovsvl-gs-rowk test normal and kvur-uh-nwck test normal SPEECH: speech normal SENSORY EXAM: Yes extremities (intact) MOTOR EXAM: Pronator motor function not present COORDINATION: [id number] test normal and eurn-bc-slku test normal Psych: COMMON NORMALS: speech normal SPEECH: Yes normal speech Skin: COMMON NORMALS: no rashes or lesions noted GENERAL SKIN EXAM: no rashes or lesions noted Course Vital Signs: Vital signs: Vital Signs Pulse Rate 76 01/10/25 20:32 Respiratory Rate 16 01/10/25 20:32 Blood Pressure 127/74 01/10/25 20:32 Pulse Oximetry 96 01/10/25 20:32 Oxygen Delivery Me thod Nasal Cannula 01/10/25 18:45 Oxygen Flow Rate 2 01/10/25 18:45 MDM - Headache Medical Decision Making Vitals are stable. She is afebrile. CBC is normal. BMP is nonactionable. Liver enzymes are normal. Head CT is nonacute. Headache is improved. She will be discharged home to return for any worsening symptoms. Outpatient follow-up. Lab Data 01/10/25 18:22 01/10/25 18:[address] 01/10/25 18:26 IMPRESSION: No acute intracranial abnormality. Laboratory Results WBC 10.12 10^3/uL (3.29-11.43) 01/10/25 18:22 RBC 5.76 10^6/uL (3.85-5.65) H 01/10/25 18:22 Hgb 16.30 g/dL (11.27-16.99) 01/10/25 18:22 Hct 49.2 % (36-47) H 01/10/25 18:22 MCV 85.4 fl (85-98) 01/10/25 18:22 MCH 28.3 pg (27-33) 01/10/25 18:22 MCHC 33.1 g/dL (30-55) 01/10/25 18:22 RDW 13.2 % (12.1-15.1) 01/10/25 18:22 Plt Count 194 10^3/cmm (157-399) 01/10/25 18:22 MPV 12.8 fL (7.4-10.4) H 01/10/25 18:22 Neut % (Auto) 59.9 % 01/10/25 18:22 Lymph % (Auto) 30.0 % 01/10/25 18:22 [place] % (Auto) 6.9 % 01/10/25 18:22 Eos % (Auto) 2.2 % 01/10/25 18:22 Baso % (Auto) 0.5 % 01/10/25 18:22 Neut # (Auto) 6.06 10^3/uL (1.8-7.7) 01/10/25 18:22 Lymph # (Auto) 3.0 10^3/uL (0.8-4.8) 01/10/25 18:22 [place] # (Auto) 0.7 10^3/uL (0.2-0.9) 01/10/25 18:22 Eos # (Auto) 0.2 10^3/uL (0.0-0.8) 01/10/25 18:22 Baso # (Auto) 0.1 10^3/uL (0.0-0.1) 01/10/25 18:22 Nucleated RBC % (auto) 0 % 01/10/25 18:22 Nucleated RBCs # 0.0 /100WBC 01/10/25 18:22 PT 12.40 SECONDS (12.1-14.9) 01/10/25 18:22 INR 0.86 (0.8-1.2) 01/10/25 18:22 Sodium 138 mmol/L (136-145) 01/10/25 18:22 Potassium 3.8 mmol/L (3.5-5.1) 01/10/25 18:22 Chloride 101 mmol/L (98-107) 01/10/25 18:22 Carbon Dioxide 27 mmol/L (22-29) 01/10/25 18:22 Anion Gap 13.8 (5-19) 01/10/25 18:22 BUN 8 mg/dL (6-20) 01/10/25 18:22 Creatinine 0.6 mg/dL (0.5-0.9) 01/10/25 18:22 GFR Calculation 107.6 mL/min (90-130) 01/10/25 18:22 Glucose 203 mg/dL (65-115) H 01/10/25 18:22 Calculated Osmolality 290 mOsm/kg (285-295) 01/10/25 18:22 Calcium 9.2 mg/dL (8.5-10.5) 01/10/25 18:22 Total Bilirubin 0.3 mg/dL (0.15-1.2) 01/10/25 18:22 AST 12 U/L (0-32) 01/10/25 18:22 ALT 18 U/L (0-33) 01/10/25 18:22 Alkaline Phosphatase 144 U/L (35-105) H 01/10/25 18:22 Creatine Kinase 46 U/L (26-192) 01/10/25 18:22 Total Protein 7.2 g/dL (6.6-8.7) 01/10/25 18:22 Albumin 4.1 g/dL (3.5-5.2) 01/10/25 18:22 Globulin 3.1 g/dL (1.3-4.6) 01/10/25 18:22 All radiology interpretation(s) finalized by discharge Discharge Plan Discharge Patient Disposition: Home Clinical Impression: Headache Condition: Stable Prescriptions: No Action fluconazole 150 mg tablet 150 mg PO Q3D Qty: 7 0RF quetiapine [Seroquel] 100 mg tablet 100 mg PO .HS Qty: 30 2RF prazosin 2 mg capsule 4 mg PO BEDTIME Qty: 60 2RF citalopram 20 mg tablet 20 mg PO QAM Qty: 30 2RF omeprazole 20 mg capsule,delayed release(DR/EC) 20 mg PO DAILY Qty: 90 3RF gabapentin 300 mg capsule See Rx Instructions .ROUTE .COMPLEX Qty: 120 5RF Dose Instruction: TAKE 1 CAPSULE BY MOUTH THREE TIMES DAILY AT 9 AM, NOON, AND 8 PM Rx Instructions: Take 1 capsule (300mg) by mouth at 9am and 12pm and two capsules (600mg) at bedtime. tramadol 50 mg tablet 50 mg PO TID PRN (Reason: pain) Qty: 90 3RF Jardiance 25 mg tablet 25 mg PO DAILY Qty: 90 1RF Rx Instructions: on insulin, failed metformin; uncontrolled (DME) Dexcom G7 Sensor Device See Rx Instructions .MEDSUPPLY Qty: 3 12RF Rx Instructions: Change every 10 days; Use as directed to check blood sugar carvedilol 3.125 mg tablet 3.125 mg PO BID Qty: 60 5RF Zepbound 2.5 mg/0.5 mL pen injector 2.5 mg SUBCUT .qwk Qty: 2 2RF tizanidine 4 mg tablet 4 mg PO TID PRN (Reason: Muscle Spasm) Qty: 60 2RF Trulicity 0.75 mg/0.5 mL pen injector See Rx Instructions .ROUTE .COMPLEX Qty: 2 1RF Dose Instruction: ADMINISTER 0.75 MG UNDER THE SKIN EVERY WEEK Rx Instructions: ADMINISTER 0.75 MG UNDER THE SKIN EVERY WEEK atorvastatin [Lipitor] 40 mg tablet 40 mg PO QPM insulin lispro [Humalog KwikPen Insulin] 100 unit/mL insulin pen See Rx Instructions .ROUTE .COMPLEX Rx Instructions: Per sliding scale; up to 30 units three times daily with meals. insulin glargine [Lantus Solostar U-100 Insulin] 100 unit/mL (3 mL) insulin pen 40 unit SUBCUT QAM Qty: 45 0RF Discharge Orders: Discharge ED (Routine); Ordered 01/10/25 Ordered By: Jerrell Rivers Referrals: Mikaela Hernadez MD [Primary Care Provider, Family Practice] - 1-3 days Patient Instructions: Acute Headache (ED), Opioid Safety, Pain Management, Patient Portal & Kalyn Instructions Activity Restrictions/Additional Instructions: Return for fever, vomiting, worsening pain, vision, speech, or weakness problems, any other concerning symptoms. Call your doctor next week for a follow-up appointment. Print Language: Argentine Coding Level of Care Code ED Drill Sharpener for Alcides Biggs
[2025-01-10 20:32] VITALS: BP 127/74; PULSE 76; RESP 16; O2SAT 96
== END 2025-01-10 20:21 | disposition home or self-care (01) ==
PROVIDERS: Emergency Provider Emergency Medicine; PCP Family Medicine
DX: R51.9 Headache, unspecified (principal); Z79.4 Long term (current) use of insulin; F17.210 Nicotine dependence, cigarettes, uncomplicated; E78.5 Hyperlipidemia, unspecified; E11.40 Type 2 diabetes mellitus with diabetic neuropathy, unspecified; I25.10 Atherosclerotic heart disease of native coronary artery without angina pectoris
CPT/HCPCS: 36415; 70450; 80053; 82550; 85025; 85610; 96374; 96375; 99285; J1885; J2270; J2765; J7030

== ENCOUNTER → 2025-01-16 10:21 | Outpatient (BNVA) | payer MEDICAID, SELFPAY ==
[2024-10-24 15:22] VITALS: BP 117/82; BMI 42.7
== END ==
PROVIDERS: PCP Family Medicine; Visit Provider Nurse Practitioner
DX: M17.12 Unilateral primary osteoarthritis, left knee (principal); M25.362 Other instability, left knee; Z68.41 Body mass index [BMI] 40.0-44.9, adult
CPT/HCPCS: 20610; 99024; J1100; J2795; J3301; J9999

== ENCOUNTER → 2025-01-21 07:36 | Outpatient (BNVA) | payer MEDICAID, SELFPAY ==
[2024-10-24 15:22] VITALS: BP 117/82; BMI 42.7
== END ==
PROVIDERS: PCP Family Medicine; Visit Provider Podiatrist Foot & Ankle Surgery
DX: L60.3 Nail dystrophy (principal); G62.9 Polyneuropathy, unspecified; E11.9 Type 2 diabetes mellitus without complications; Z79.4 Long term (current) use of insulin; M54.16 Radiculopathy, lumbar region; E11.42 Type 2 diabetes mellitus with diabetic polyneuropathy
CPT/HCPCS: 99213

== ENCOUNTER → 2025-02-06 09:53 | Outpatient (BNVA) | payer MEDICAID, SELFPAY ==
[2024-10-24 15:22] VITALS: BP 117/82; BMI 42.7
== END ==
PROVIDERS: PCP Family Medicine; Visit Provider Family Medicine
DX: E11.9 Type 2 diabetes mellitus without complications (principal); Z79.4 Long term (current) use of insulin; I10 Essential (primary) hypertension; E03.9 Hypothyroidism, unspecified; K21.9 Gastro-esophageal reflux disease without esophagitis; F17.210 Nicotine dependence, cigarettes, uncomplicated; G89.29 Other chronic pain; E11.40 Type 2 diabetes mellitus with diabetic neuropathy, unspecified; M54.16 Radiculopathy, lumbar region
CPT/HCPCS: 82043; 83036; 84439; 84443

== ENCOUNTER 2025-02-22 18:01 | Emergency (ER) | payer MEDICAID, SELFPAY ==
[2024-10-24 15:22] VITALS: BP 117/82; BMI 42.7
--- OUTSIDE RECORDS SUMMARY | 2025-02-22 18:05 | XMS_ITS | Clinical Summary ---
Author Organization [facility] Address [address] Alvarez: Epic Prelude ADT MICHELLE LOZADA [address] Care Team Providers Care Police Patrol Officer Name Role Phone Siomara Laboy MD Primary Care Provider [phone] Allergies Active Allergy Reactions Criticality Noted Date [...] Fuentes 1 Active naloxone (Narcan) 4 mg/spray [place], Non-Aerosol [address] Fuentes 1 Active fluticasone propionate (FLONASE) 50 mcg/spray [place], Suspension nasal inhaler SHAKE LIQUID AND USE 2 SPRAYS IN EACH NOSTRIL DAILY 16 Gram 1 1 Active LEVOTHYROXINE 88 mcg tablet TAKE 1 TABLET BY MOUTH EVERY DAY CHAIN MACHINE OPERATOR 90 Tablet 1 1 Active diphenhydrAMIN E [...] Encounters Date Type Department Care Team Description 02/18/2025 External Device Data [facility] ABSTRACTION Provider, Abstract 02/10/2025 External Device Data [facility] ABSTRACTION Provider, Abstract 02/10/2025 External Device Data [facility] ABSTRACTION Provider, Abstract 01/21/2025 External Device Data [facility] ABSTRACTION Provider, Abstract 12/31/2024 External Device Data [facility] ABSTRACTION Provider, [...] on file Legal Sex Female 3:34 AM ANCILLARY SERVICES MANAGER Gender Identity Not on file Sexual Orientation Not on file Last Filed Vital Signs Vital Sign Reading Time Taken Comments Blood Pressure 104/69 07/15/2024 11:00 PM ANCILLARY SERVICES MANAGER Pulse 79 07/15/2024 11:00 PM ANCILLARY SERVICES MANAGER Temperature 35.7 C (96.2 F) 07/15/2024 8:37 PM ANCILLARY SERVICES MANAGER Respiratory Rate 10 07/15/2024 11:00 PM ANCILLARY SERVICES MANAGER Oxygen Saturation 91% 07/15/2024 11:00 PM ANCILLARY SERVICES MANAGER Inhaled Oxygen Concentration - - Weight 111.1 kg (245 lb) 07/15/2024 8:37 PM ANCILLARY SERVICES MANAGER Height 162.6 cm (5' 4 ) 07/15/2024 8:37 PM ANCILLARY SERVICES MANAGER Body Mass Index 42.05 07/15/2024 8:37 PM ANCILLARY SERVICES MANAGER Plan of Treatment Health Maintenance Due Date [...] 06/24/2022 06/24/2021, 08/19/2020 LDL CHOLESTEROL ANNUAL 07/12/2022 2, 01/14/2021, 07/27/2020 DIABETES ANNUAL RETINAL EXAM 12/23/2022 12/23/2021, 09/24/2020, 03/18/2020 COLORECTAL SCREENING 11/28/2023 Colorectal Cancer Screening 11/28/2023 FIT-DNA Q 3 years 11/28/2023 FIT/FOBT Q 1 year 11/28/2023 Flex Sig/CT Colonography Q 5 years 11/28/2023 INFLUENZA VACCINE (#1) 2025 2, 03/21/2021, 02/12/2020, Additional history exists COVID-19 Vaccine ( season) 2025 07/05/2023, 03/24/2022, 04/16/2021, Additional history exists HPV VACCINES Aged Out No longer eligi ble based on patient's age to complete this topic Medical Devices Implanted Type Area Stone Paver Device Identifier Shelf Expiration Date Model / Serial / Lot Clip Ligating Vesocclude Med Ti [id number] - [id number] Implanted:Qty: 1 on 07/24/2019 by Juan Pablo Bullock MD Clip N/A: Abdomen [employer] [id number] / / [id number] Mesh Soft Mesh [id number] - [id number] Implanted:11/2019 by Juan Pablo Bullock MD (Quantity not on file) Mesh N/A: Abdomen CR [employer] 02/13/2024 [id number] / / [id number] Procedures Procedure Name Priority Date/Time Associated Diagnosis Comments DIABETES EYE EXAM Routine 12/23/2021 HEMOGLOBIN A1C Routine 11/18/2021 2:41 PM CDT Controlled type 2 diabetes mellitus without complication, with long-term current use of insulin (CMS/HCC) LIPID PANEL Routine 07/12/2021 8:27 AM ANCILLARY SERVICES MANAGER Controlled type 2 diabetes mellitus without complication, unspecified whether ad terminal makeup operator insulin use (CMS/HCC) MICROALBUMIN/CREATI NINE RATIO, RANDOM UR Routine 06/24/2021 2:55 PM ANCILLARY SERVICES MANAGER Controlled type 2 diabetes mellitus without complication, unspecified whether ad terminal makeup operator insulin use (CMS/HCC) MAMMO SCREEN BILAT W OR WO CAD Routine 01/14/2020 11:37 AM CDT Breast cancer screening by mammogram from Last 3 Months or Most Recently Relevant to Health Maintenance Results * DIABETES EYE EXAM (12/23/2021) us Abstract Provider HEALTH MAINTENANCE Final Resul t * (ABNORMAL) HEMOGLOBIN A1C (11/18/2021 2:41 PM CDT) HEMOGLOBIN A1C 6.5(H) <5.7 % of total Hgb [facility] Comment: For someone without known diabetes, a [...] children. ESTIMATED AVERAGE GLUCOSE (MG/DL) 140 mg/dL [facility] ESTIMATED AVERAGE GLUCOSE (MMOL/L) 7.7 mmol/L [facility] Comment: Test [facility]formed [facility]: [facility] [address] [place] [address] Josh Solitario D.O., MPH Blood 11/18/2021 2:41 PM CDT 11/19/2021 3:43 AM CDT us Siomara Laboy MD CHEMISTRY ORDERABLES Final Result [facility] [phone] * (ABNORMAL) LIPID PANEL (07/12/2021 8:27 AM ANCILLARY SERVICES MANAGER) CHOLESTEROL 129 <200 mg/dL [facility] HDL 35(L) > OR = 50 mg/dL [facility] TRIGLYCERIDE 192(H) <150 mg/dL [facility] LDL CALCULATED 68 mg/dL (calc) [facility] Comment: Reference range: <100 Desirable range <100 mg/dL for primary prevention; <70 mg/dL for patients with CHD or diabetic patients with > or = 2 CHD risk factors. LDL-C is now calculated using the Jennifer calculation, which is a validated novel method providing better accuracy than the Friedewald equation in the estimation of LDL-C. Miky BANSAL et al. HUAN. 2013;310(19): 7074-0734 (http://education.PopUp.Telogis/faq/HAE401) CHOL/HDL RATIO 3.7 <5.0 (calc) [facility] TOTAL NON-HDL CHOL(LDL+VLDL) 94 <130 mg/dL (calc) [facility] Comment: For patients with diabetes plus 1 major ASCVD risk factor, treating to a non-HDL-C goal of <100 mg/dL (LDL-C of <70 mg/dL) is considered a therapeutic option. Test Performed at: [facility] [address] Josh Solitario D.O., MPH Blood 07/12/2021 8:27 AM ANCILLARY SERVICES MANAGER 07/13/2021 4:04 AM ANCILLARY SERVICES MANAGER us Siomara Laboy MD CHEMISTRY ORDERABLES Final Result Performing Organization Address [facility] de Phone Number [facility] [address] [place] [address] * MICROALBUMIN/CREATININE RATIO, RANDOM UR (06/24/2021 2:55 PM ANCILLARY SERVICES MANAGER) Creatinine, Urine 188 20 - 275 mg/dL [facility] MICROALBUMIN, URINE 0.6 See Note: mg/dL [facility] Comment: Reference Range: Reference Range Not established MICROALBUMIN/CREAT RATIO, UR 3 <30 mcg/mg creat [facility] Comment: The ADA defines abnormalities in albumin excretion as follows: Albuminuria Category Result (mcg/mg creatinine) Normal to Mildly increased <30 Moderately increased 30-299 Severely increased > OR = 300 The ADA recommends that at least two of three specimens collected within a 3-6 month period be abnormal before considering a patient to be within a diagnostic category. Test Performed at: [email or web address] [address] [place] [id number] Josh Solitario D.O., MPH Urine URINE SPECIMEN OBTAINED BY CLEAN CATCH PROCEDURE / Unknown 06/24/2021 2:55 PM ANCILLARY SERVICES MANAGER 06/25/2021 4:26 AM ANCILLARY SERVICES MANAGER us Siomara Laboy MD URINE ORDERABLES Final Resu lt Performing Organization Address [facility]/ZIP Co de Phone Number [facility] [address] [place] [address] * MAMMO SCREEN BILAT W OR WO [...] Recently Relevant to Health Maintenance Insurance [place] * Guarantor: JULISSA AVALOS Account Type Relation to Patient Date of Phone Billing Address Personal/Family [address] [place] [address] RX INFOCROSSING Medicaid Care Teams Police Patrol Officer Relationship Specialty Start Date End Date Siomara Laboy MD [address] [id number] PCP - General Family Practice 04/19/18
--- OUTSIDE RECORDS SUMMARY | 2025-02-22 18:05 | XMS_ITS | Encounter Summary ---
Author Organization [facility] Address [address] [place] [address] Care Team Providers Care Financial Professional Name Role Phone Siomara Laboy MD Primary Care Provider [phone] Encounter Details Date Type Department Care Team (Late st Contact Info) Description 02/18/2025 External Device Data [facility] ABSTRACTION Provider, Abstract NO ADDRESS ON FILE Social History Tobacco Use Types Packs/Day Years Used Date Smoking Tobacco: Every Day Cigarettes Smokeless Tobacco: Never Alcohol Use Standard Drinks/Week Comments No 0 (1 standard drink = 0.6 oz pur e alcohol) Feeling Safe Answer Date Recorded Are you in a relationship wi th someone who hurts you emotionally and/or physically? No 07/15/2024 Comments No Sex and Gender Information Value Date Recorded Sex Assigned at Not on file Legal Sex Female 3:34 AM STOCK AND STATION AGENT Gender Identity Not on file Sexual Orientation Not on file documented as of this encounter Plan of Treatment Not on file documented as of this encounter Visit Diagnoses Not on filedocumented in this encounter Additional Health Concerns Assessment Noted Time PHQ-9 Depression Total Score: 3 10/09/19 18 10:00 AM CDT documented as of this encounter Care Teams Financial Professional Relationship Specialty Start Date End Date Siomara Laboy MD [address] [place] [address] PCP - General Family Practice 04/19/18 documented as of this encounter
[2025-02-22 18:13] VITALS: BP 141/92; PULSE 90; TEMP 36.7; O2SAT 93
--- NOTE | 2025-02-22 18:25 | CTR_ITS ---
PROCEDURE INFORMATION: Exam: CT Abdomen And Pelvis With Contrast Exam date and time: 02/22/2025 6:40 PM Age: 44 years old Clinical indication: Nausea and vomiting; Abdominal pain; Generalized; Prior surgery; Surgery date: 6+ months; Surgery type: Gastric band. Gb. Appy. Hernia repair. Full hysterectomy. Diffuse abd pain with n/v. ; Additional info: Tearing abdominal pain TECHNIQUE: Imaging protocol: Computed tomography of the abdomen and pelvis with contrast. 257 image(s) are submitted. Radiation optimization: All CT scans at this facility use at least one of these dose optimization techniques: automated exposure control; mA and/or kV adjustment per patient size (includes targeted exams where dose is matched to clinical indication); or iterative reconstruction. Contrast material: OMNI 350; Contrast volume: 100 ml; Contrast route: INTRAVENOUS (IV); COMPARISON: CT abdomen pelvis w con* [id number] 12/19/2024 5:58 PM RADIATION DOSE METRICS: Total DLP (mGy-cm): 1155.55 FINDINGS: Liver: Normal. No mass. Gallbladder and biliary ducts: See Stomach and bowel finding. Pancreas: Normal. No ductal dilation. Spleen: Normal. No splenomegaly. Adrenal glands: Normal. No mass. Kidneys and ureters: See Stomach and bowel finding. Stomach and bowel: status post gastric banding procedure, unchanged. No evidence of small bowel obstruction or constipation. Status post appendectomy. Status post hysterectomy. The urinary bladder is unremarkable. Nausea and vomiting is difficult to explain. No evidence of urinary tract obstruction or calculus. Status post cholecystectomy. Overall, no significant change since previous study. Appendix: See Stomach and bowel finding. Intraperitoneal space: Unremarkable. No free air. No significant fluid collection. Vasculature: Unremarkable. No abdominal aortic aneurysm. Lymph nodes: Unremarkable. No enlarged lymph nodes. Urinary bladder: See Stomach and bowel finding. Reproductive: See Stomach and bowel finding. Bones/joints: Unremarkable. No acute fracture. Soft tissues: Unremarkable. CT/CT abdomen pelvis w con* [id number] IMPRESSION: Status post gastric banding procedure, unchanged. No evidence of small bowel obstruction or constipation. Status post appendectomy. Status post hysterectomy. The urinary bladder is unremarkable. Nausea and vomiting is difficult to explain. No evidence of urinary tract obstruction or calculus. Status post cholecystectomy. Overall, no significant change since previous study.
--- NOTE | 2025-02-22 18:26 | W.ED.ABDPA2 ---
HPI - Abdominal Pain General: Chief Complaint: Abdominal Pain Stated Complaint: Abd pain Time Seen by Provider: 02/22/25 18:07 History of Present Illness: Patient is a 44-year-old female, diabetic, hypothyroidism, presents to ED with 4-5 days of abdominal pain, dry heaving. She is status post gastric banding, appendectomy, hysterectomy, and cholecystectomy. Patient states that she had a fried egg at 1130, and had worsening, and tearing, centrally located abdominal pain like her abdomen is being pulled apart. This is sharp in nature. She had dry heaving prior to the events of consuming a fried egg. She has not had anything else to eat today. She has had minimally looser stools today, however not a diarrhea or other change in her stools. No shortness of breath. Associated Symptoms: Reports nausea; Denies change in stool character, chills and fever(s) Related Data Home Medications ?Medication ?Instructions ?Recorded ?Confirmed atorvastatin 40 mg tablet (Lipitor) 40 mg PO QPM 09/05/24 02/19/25 insulin lispro 100 unit/mL See Rx Instructions .Route .COMPLEX 09/05/24 02/19/25 subcutaneous pen (Humalog KwikPen (U-100) Insulin) Previous Rx's ?Medication ?Instructions ?Recorded omeprazole 20 mg capsule,delayed 20 mg PO DAILY #90 caps 05/30/24 release empagliflozin 25 mg tablet 25 mg PO DAILY #90 tabs 09/24/24 (Jardiance) gabapentin 300 mg capsule See Rx Instructions .Route 11/06/24 .COMPLEX #120 caps carvedilol 3.125 mg tablet 3.125 mg PO BID #60 tabs 12/05/24 tizanidine 4 mg tablet 4 mg PO TID PRN Muscle Spasm #60 12/26/24 tabs insulin glargine 100 unit/mL (3 60 unit (0.6 mL) SUBCUT QAM #45 mL 01/15/25 mL) subcutaneous pen (Lantus Solostar U-100 Insulin) blood-glucose sensor (REAC Fuel G7 #3 ea 01/16/25 Sensor device) tramadol 50 mg tablet 50 mg PO TID PRN pain #90 tabs 01/26/25 fluconazole 150 mg tablet 150 mg PO Q3D PRN yeast infection 01/27/25 #7 tabs dulaglutide 1.5 mg/0.5 mL 1.5 mg (0.5 mL) SUBCUT .qwk #2 mL 02/06/25 [facility]or ([facility] citalopram 20 mg tablet 20 mg PO QAM #30 tabs 02/09/25 prazosin 2 mg capsule 4 mg (2 x 2 mg) PO BEDTIME #60 caps 02/09/25 quetiapine 100 mg tablet (Seroquel) 100 mg PO .HS #30 tabs 02/09/25 Allergies Allergy/AdvReac Type Severity Reaction Status Date / Time metformin Allergy Severe ADR-Diarrhe Verified 02/22/25 18:16 a codeine Allergy Intermediate HALLUCINATI Verified 02/22/25 18:16 ONS latex Allergy Intermediate HIVES Verified 02/22/25 18:16 aspirin Allergy RASH Verified 02/22/25 18:16 oxycodone (From Percocet) Allergy RASH Verified 02/22/25 18:16 topiramate (From Topamax) Allergy RASH Verified 02/22/25 18:16 sumatriptan AdvReac Intermediate SOB; Verified 02/22/25 18:16 WHEEZING; DIZZINESS Review of Systems General: Reports: 10 or more systems reviewed and unremarkable except in HPI and below Const: Denies: fever(s) or chills ENMT: Denies: throat pain or mouth pain Card: Denies: chest pain or palpitations Resp: Denies: dyspnea or non-productive cough GI: Reports: abdominal pain and nausea; Denies: pain on defecation or change in stool character : Denies: flank pain or difficulty voiding Musc: Denies: neck pain, back pain or extremity pain Skin/Breast: Denies: rash or pruritus Neuro: Denies: headache(s) or numbness in extremities Psych: Reports: change in appetite; Denies: anxiety or depression PFSH ED PFSH: Medical History (Updated 02/22/25 @ 20:36 by JACK Barr) Lumbar radiculopathy Chronic back pain greater than 3 months duration Family history of colon cancer in father On combination antipsychotic drug therapy Instability of left knee joint Primary osteoarthritis of left knee GERD without esophagitis Calculus of kidney L 4.7mm UVP junction on CT Encounter for chronic pain management tramadol for chronic back pain Pain management contract signed tramadol; 10..24 HOMER (obstructive sleep apnea) on BIPAP Diabetic polyneuropathy associated with type 2 diabetes mellitus Uncontrolled type 2 diabetes mellitus with insulin therapy Facet arthritis, degenerative, lumbar spine Atherosclerosis of [place] coronary artery without angina pectoris Insomnia Urolithiasis Morbid obesity Bipolar 2 disorder Post-traumatic stress disorder, chronic Nicotine dependence, cigarettes, uncomplicated Psychiatric care Major depressive disorder without psychotic features Dyslipidemia Low back pain with sciatica Hypothyroidism Surgical History Hx of percutaneous transluminal coronary angioplasty History of total knee arthroplasty Right--has had 2 TKA--first in [place]--got infected then had another TKA at [facility] Hx laparoscopic cholecystectomy 03/01/23 Dr. Alarcon Hx of colonoscopy 2009 History of hernia repair umbilical and abdominal R side H/O: hysterectomy w/ BSO; had precancerous cells age 14, then had hyst for menometrorrhagia Hx of appendectomy 2005 Hx of laparoscopic gastric banding 2009 Family History Mother CAD (coronary artery disease) Stroke Father CAD (coronary artery disease) Colon cancer Other Cancer Diabetes Hypertension Social History Smoking and tobacco/nicotine status: current every day tobacco/nicotine user (Mainly vapes) cigarettes Packs smoked per day: 1.5 Years cigarettes smoked: 28 Alcohol intake: never Substance/Drug Use: never Household members: significant other Housing: House Marital status: / Number of children: 0 Current occupational status: employed Current occupation: [employer] Female Reproductive History: Spontaneous abortions: No Physical Exam Const: COMMON NORMALS: no acute distress and patient oriented x3 GENERAL APPEARANCE: cooperative HENMT: COMMON NORMALS: normocephalic, atraumatic and Normal external nose present HEAD & SCALP: normocephalic and atraumatic FACE & SINUS: normal facial exam NOSE: Normal external nose present Neck/C-Spine: COMMON NORMALS: full ROM and no lymphadenopathy Lymph: LYMPHATIC: no lymphadenopathy noted Chest: COMMONS NORMALS: normal inspection of the chest Resp: COMMON NORMALS: normal respiratory effort, No retractions and clear to auscultation bilaterally AUSCULTATION: clear to auscultation bilaterally Cardio: COMMON NORMALS: regular rate and regular rhythm RATE: regular rate RHYTHM: regular rhythm GI: COMMON NORMALS: Soft to palpation (semi) INSPECTION: Yes normal to inspection and No Fluid wave present PALPATION: Yes Soft to palpation (semi), Yes Tenderness to palpation present (GI) (diffuse) and No Guarding due to palpation present (GI) PERCUSSION: dullness to percussion (All quadrants except epigastrium) and no fluid wave GI image (female):  1. Ripping tearing pain : COMMON NORMALS: Yes no CVA tenderness BLADDER/KIDNEY EXAM: Yes no CVA tenderness Back/Pelvis: COMMON NORMALS: no CVA tenderness Extremity: COMMON NORMALS: normal to inspection, full ROM and capillary refill normal Neuro: COMMON NORMALS: patient oriented x3 Psych: COMMON NORMALS: mental status grossly normal and Normal thought process present THOUGHT PROCESS: Normal thought process present Course Reevaluation(s): Reevaluation #1: no change, no n/v; pt updated on labs Vital Signs: Vital signs: Vital Signs Temperature 98.1 F 02/22/25 18:13 Pulse Rate 75 02/22/25 21:02 Respiratory Rate 18 02/22/25 21:02 Blood Pressure 127/95 02/22/25 21:02 Pulse Oximetry 94 02/22/25 21:02 Oxygen Delivery Me thod Room Air 02/22/25 18:13 MDM - Abdominal Pain Medical Decision Making Patient is 44-year-old female status post cholecystectomy, hysterectomy, and appendectomy, with lap band, presents to the emergency room with a ripping tearing central abdominal pain. I do suspect an association of obstipation or functional as differential given her anatomy scan on CT, and history. On reevaluation patient actually has a bowel movement about every 3 days. This is consistent with more obstipation. Suspect association of gut motility. Patient does have follow-up planned. Recommended obtaining probiotics, further discussed with primary doctor, possibly laxatives. Lab Data 02/22/25 18:28 02/22/25 18:28 Labs/Radiology: Radiology Impressions Abdomen/Pelvis CT 02/22/25 18:25 IMPRESSION: Status post gastric banding procedure, unchanged. No evidence of small bowel obstruction or constipation. Status post appendectomy. Status post hysterectomy. The urinary bladder is unremarkable. Nausea and vomiting is difficult to explain. No evidence of urinary tract obstruction or calculus. Status post cholecystectomy. Overall, no significant change since previous study. Laboratory Results WBC 12.23 10^3/uL (3.29-11.43) H 02/22/25 18: RBC 5.70 10^6/uL (3.85-5.65) H 02/22/25 18: Hgb 16.30 g/dL (11.27-16.99) 02/22/25 18: Hct 48.4 % (36-47) H 02/22/25 18: MCV 84.9 fl (85-98) L 02/22/25 18: MCH 28.6 pg (27-33) 02/22/25 18: MCHC 33.7 g/dL (30-55) 02/22/25 18: RDW 13.4 % (12.1-15.1) 02/22/25 18: Plt Count 186 10^3/cmm (157-399) 02/22/25 18: MPV 12.3 fL (7.4-10.4) H 02/22/25 18: Neut % (Auto) 67.8 % 02/22/25 18:28 Lymph % (Auto) 23.0 % 02/22/25 18: [place] % (Auto) 6.3 % 02/22/25 18: Eos % (Auto) 2.1 % 02/22/25 18: Baso % (Auto) 0.5 % 02/22/25 18: Neut # (Auto) 8.29 10^3/uL (1.8-7.7) H 02/22/25 18:28 Lymph # (Auto) 2.8 10^3/uL (0.8-4.8) 02/22/25 18: [place] # (Auto) 0.8 10^3/uL (0.2-0.9) 02/22/25 18: Eos # (Auto) 0.3 10^3/uL (0.0-0.8) 02/22/25 18: Baso # (Auto) 0.1 10^3/uL (0.0-0.1) 02/22/25 18: Nucleated RBC % (auto) 0 % 02/22/25 18: Nucleated RBCs # 0.0 /100WBC 02/22/25 18:28 Sodium 136 mmol/L (136-145) 02/22/25 18:28 Potassium 4.2 mmol/L (3.5-5.1) 02/22/25 18:28 Chloride 101 mmol/L (98-107) 02/22/25 18:28 Carbon Dioxide 23 mmol/L (22-29) 02/22/25 18:28 Anion Gap 16.2 (5-19) 02/22/25 18:28 BUN 11 mg/dL (6-20) 02/22/25 18:28 Creatinine 0.5 mg/dL (0.5-0.9) 02/22/25 18:28 GFR Calculation 132.8 mL/min (90-130) H 02/22/25 18: Glucose 240 mg/dL (65-115) H 02/22/25 18:28 Calculated Osmolality 289 mOsm/kg (285-295) 02/22/25 18:28 Lactic Acid 1.3 mmol/L (0.5-2.2) 02/22/25 18:28 Calcium 9.1 mg/dL (8.5-10.5) 02/22/25 18:28 Total Bilirubin 0.4 mg/dL (0.15-1.2) 02/22/25 18:28 AST 11 U/L (0-32) 02/22/25 18:28 ALT 16 U/L (0-33) 02/22/25 18:28 Alkaline Phosphatase 131 U/L (35-105) H 02/22/25 18:28 Total Protein 7.0 g/dL (6.6-8.7) 02/22/25 18:28 Albumin 3.8 g/dL (3.5-5.2) 02/22/25 18:28 Globulin 3.2 g/dL (1.3-4.6) 02/22/25 18:28 Lipase 27 U/L (13-60) 02/22/25 18:28 Urine Color Yellow (Yellow) 02/22/25 18:20 Urine Appearance Clear (CLEAR) 02/22/25 18:20 Urine pH 6.5 (5-7) 02/22/25 18:20 Ur Specific [place] 1.038 (1.005-1.030) H 02/22/25 18:20 Urine Protein Negative (Negative) 02/22/25 18:20 Urine Glucose (UA) 3+ (Normal) H 02/22/25 18:20 Urine Ketones Negative (Negative) 02/22/25 18:20 Urine Blood Negative (Negative) 02/22/25 18:20 Urine Nitrate Negative (Negative) 02/22/25 18:20 Urine Bilirubin Negative (Negative) 02/22/25 18:20 Urine Urobilinogen 1.0 mg/dL (Negative) 02/22/25 18:20 Ur Leukocyte Esterase Negative (Negative) 02/22/25 18:20 Urine RBC 3-5 /hpf (0-2) 02/22/25 18:20 Urine WBC 0-5 /hpf (0-5) 02/22/25 18:20 Ur Squamous Epith Cells 0-5 /hpf (0-5) 02/22/25 18:20 Amorphous Sediment Not Reportable 02/22/25 18:20 Urine Bacteria Trace /hpf (NONE) 02/22/25 18:20 Hyaline Casts 0-4 /lpf H 02/22/25 18:20 Urine Yeast Trace /hpf 02/22/25 18:20 All radiology interpretation(s) finalized by discharge Discharge Plan Discharge Patient Disposition: Home Clinical Impression: Obstipation Abdominal pain Qualifiers: Abdominal location: generalized Qualified Code(s): R10.84 - Generalized abdominal pain Condition: Stable Prescriptions: No Action Trulicity 1.5 mg/0.5 mL pen injector 1.5 mg SUBCUT .qwk Qty: 2 3RF omeprazole 20 mg capsule,delayed release(DR/EC) 20 mg PO DAILY Qty: 90 3RF gabapentin 300 mg capsule See Rx Instructions .ROUTE .COMPLEX Qty: 120 5RF Dose Instruction: TAKE 1 CAPSULE BY MOUTH THREE TIMES DAILY AT 9 AM, NOON, AND 8 PM Rx Instructions: Take 1 capsule (300mg) by mouth at 9am and 12pm and two capsules (600mg) at bedtime. citalopram 20 mg tablet 20 mg PO QAM Qty: 30 2RF quetiapine [Seroquel] 100 mg tablet 100 mg PO .HS Qty: 30 2RF prazosin 2 mg capsule 4 mg PO BEDTIME Qty: 60 2RF Jardiance 25 mg tablet 25 mg PO DAILY Qty: 90 1RF Rx Instructions: on insulin, failed metformin; uncontrolled carvedilol 3.125 mg tablet 3.125 mg PO BID Qty: 60 5RF tizanidine 4 mg tablet 4 mg PO TID PRN (Reason: Muscle Spasm) Qty: 60 2RF insulin glargine [Lantus Solostar U-100 Insulin] 100 unit/mL (3 mL) insulin pen 60 unit SUBCUT QAM Qty: 45 1RF (DME) Dexcom G7 Sensor Device See Rx Instructions .MEDSUPPLY Qty: 3 12RF Rx Instructions: Change every 10 days; Use as directed to check blood sugar tramadol 50 mg tablet 50 mg PO TID PRN (Reason: pain) Qty: 90 3RF fluconazole 150 mg tablet 150 mg PO Q3D PRN (Reason: yeast infection) Qty: 7 0RF atorvastatin [Lipitor] 40 mg tablet 40 mg PO QPM insulin lispro [Humalog KwikPen Insulin] 100 unit/mL insulin pen See Rx Instructions .ROUTE .COMPLEX Rx Instructions: Per sliding scale; up to 30 units three times daily with meals. Discharge Orders: Discharge ED (Routine); Ordered 02/22/25 Ordered By: Chiqui Sen Referrals: Mikaela Hernadez MD [Primary Care Provider, Family Practice] Discharge Diet: Clear Liquid Discharge Activity: Resume usual activity Patient Instructions: Abdominal Pain (ED), Patient Portal & Kalyn Instructions Activity Restrictions/Additional Instructions: Clear liquid diet only Zofran was sent home with you x 1. You indicated you had more at home. Use sparingly since this can cause constipation. Avoid narcotics since this can cause constipation As we discussed, this is most likely a functional issue with your abdomen, since your CAT scan appears fine. I suspect it secondary to constipation. Obtain a probiotic and take x 2 daily to help with your gut motility. Return to ED for worsening pain, fever. Print Language: Comoran Coding Level of Care Code ED Oxygen Therapy Teacher for Alcides Biggs
[2025-02-22 18:33] LABS: Glucose Urine UA 3+ (Normal); Nitrate Urine Negative (Negative)
[2025-02-22 18:33] LABS: Hematocrit 48.4 % (36-47); Hemoglobin 16.30 g/dL (11.27-16.99); Mean Corpuscular HGB Conc 33.7 g/dL (30-55); Mean Corpuscular Hemoglobin 28.6 pg (27-33); Mean Corpuscular Volume 84.9 fl (85-98); Nucleated Red Blood Cells % 0 %; Platelet Count 186 10^3/cmm (157-399); Red Blood Count 5.70 10^6/uL (3.85-5.65); White Blood Count 12.23 10^3/uL (3.29-11.43)
[2025-02-22 18:37] LABS: Add Urine Microscopic? YES
[2025-02-22 18:46] LABS: Specific Gravity, Urine 1.038 (1.005-1.030)
[2025-02-22 18:49] LABS: UA Slide Review UA Slide Review Perf
[2025-02-22 18:50] LABS: Alanine Aminotransferase 16 U/L (0-33); Albumin Level 3.8 g/dL (3.5-5.2); Alkaline Phosphatase 131 U/L (35-105); Anion Gap 16.2 (5-19); Aspartate Amino Transferase 11 U/L (0-32); Blood Urea Nitrogen 11 mg/dL (6-20); Calcium 9.1 mg/dL (8.5-10.5); Carbon Dioxide 23 mmol/L (22-29); Chloride 101 mmol/L (98-107); Creatinine Clr Calc Pharmacy 172.3061; Globulin 3.2 g/dL (1.3-4.6); Glucose 240 mg/dL (65-115); Lipase 27 U/L (13-60); Osmolality Calculated 289 mOsm/kg (285-295); Potassium 4.2 mmol/L (3.5-5.1); Sodium 136 mmol/L (136-145); Total Protein 7.0 g/dL (6.6-8.7)
[2025-02-22 18:51] LABS: Lactic Sepsis W/Reflex 1.3 mmol/L (0.5-2.2)
[2025-02-22] MEDS: iohexol 350 mg/mL 500 mL Btl (per mL) IV (18:55)
[2025-02-22] MEDS: orphenadrine 30 mg/mL Inj 2 mL IVP (20:56)
[2025-02-22] MEDS: ondansetron hcl ODT 4 mg Tab PO (20:57)
[2025-02-22 21:02] VITALS: BP 127/95; PULSE 75; RESP 18; O2SAT 94
== END 2025-02-22 21:03 | disposition home or self-care (01) ==
PROVIDERS: Emergency Provider Physician Assistant; PCP Family Medicine
DX: R10.84 Generalized abdominal pain (principal); K59.00 Constipation, unspecified; Z79.4 Long term (current) use of insulin; Z79.85 Long-term (current) use of injectable non-insulin antidiabetic drugs; F17.210 Nicotine dependence, cigarettes, uncomplicated; E78.5 Hyperlipidemia, unspecified; E11.42 Type 2 diabetes mellitus with diabetic polyneuropathy; I25.10 Atherosclerotic heart disease of native coronary artery without angina pectoris
CPT/HCPCS: 36415; 74177; 80053; 81001; 83605; 83690; 85025; 96374; 96375; 99285; J1885; J2360; J7030; Q0162

== ENCOUNTER 2025-02-24 08:07 | Day surgery (SDC) | payer MEDICAID, SELFPAY ==
[2024-10-24 15:22] VITALS: BP 117/82; BMI 42.7
[2025-02-24 08:22] VITALS: BP 111/87; PULSE 77; RESP 18; TEMP 36.6; O2SAT 96; BMI 42.5
--- NOTE | 2025-02-24 09:24 | ANES.PREANE2 ---
Pre-Anesthetic Assessment Height/Weight: Height 1.63 m Weight 112.491 kg Temp Pulse Resp BP Pulse Ox O2 Del Method 97.8 F 77 18 111/87 96 Room Air 02/24/25 08:22 02/24/25 08:22 02/24/25 08:22 02/24/25 08:22 02/24/25 08:22 02/24/25 08:22 Preop Diagnosis: screen Operation Date: 02/24/25 09:30 Proposed Procedures p Colonoscopy [id number] G0121 Z12.11(Not Applicable) - Enrico Simon MD Familial anesthetic complications: none Was Beta Micheline taken within 24 hours: Yes (carvedilol) Was Clonidine taken within 24 hours: N/A Last intake: Intake Last Liquid Date 02/23/25 Last Liquid Time 22:00 Last Solid Date 02/22/25 Last Solid Time 20:30 Social Tobacco and No alcohol 1 PPD x 33 years pack(s) per day Exam alert, oriented x 3, clear to auscultation bilaterally and regular rate & rhythm Airway Submandibular: within normal limits Cervical ROM: within normal limits Mallampati: Class II Dentition: loose and full History/ROS No significant history except as noted Pulmonary Chronic Obstructive Pulmonary Disease remote hx pneumonia CV/HEM Hypertension (controlled) andres cp. good exercise tao None reported Hepatic None reported GI None reported Metabolic Diabetes Mellitus (Type 1 -- accu check 147 0700 9.9.25) Musc/skel None reported Neuropsych None reported Anesthetic Plan ASA status: 3 Anesthesia: MAC Risk of > 500 ml blood loss (7ml/kg in children): No Medications/Allergies Home Medications ?Medication ?Instructions ?Recorded ?Confirmed ?Last Taken ?Type omeprazole 20 mg capsule,delayed 20 mg PO DAILY #90 caps 05/30/24 02/19/25 02/19/25 Rx release atorvastatin 40 mg tablet (Lipitor) 40 mg PO QPM 09/05/24 02/19/25 02/18/25 History insulin lispro 100 unit/mL See Rx Instructions .Route .COMPLEX 09/05/24 02/19/25 02/19/25 History subcutaneous pen (Humalog KwikPen (U-100) Insulin) empagliflozin 25 mg tablet 25 mg PO DAILY #90 tabs 09/24/24 02/19/25 02/19/25 Rx (Jardiance) gabapentin 300 mg capsule See Rx Instructions .Route 11/06/24 02/19/25 02/19/25 Rx .COMPLEX #120 caps carvedilol 3.125 mg tablet 3.125 mg PO BID #60 tabs 12/05/24 02/24/25 02/24/25 Rx 3.125mg tizanidine 4 mg tablet 4 mg PO TID PRN Muscle Spasm #60 12/26/24 02/19/25 02/18/25 Rx tabs insulin glargine 100 unit/mL (3 60 unit (0.6 mL) SUBCUT QAM #45 mL 01/15/25 02/19/25 02/19/25 Rx mL) subcutaneous pen (Lantus Solostar U-100 Insulin) blood-glucose sensor (Seventymm G7 #3 ea 01/16/25 02/09/25 01/20/25 Rx Sensor device) tramadol 50 mg tablet 50 mg PO TID PRN pain #90 tabs 01/26/25 02/24/25 02/24/25 Rx 50 mg fluconazole 150 mg tablet 150 mg PO Q3D PRN yeast infection 01/27/25 02/19/25 Unknown Rx #7 tabs dulaglutide 1.5 mg/0.5 mL 1.5 mg (0.5 mL) SUBCUT .qwk #2 mL 02/06/25 02/19/25 02/12/25 Rx subcutaneous pen injector (Trulicity) citalopram 20 mg tablet 20 mg PO QAM #30 tabs 02/09/25 02/19/25 02/19/25 Rx prazosin 2 mg capsule 4 mg (2 x 2 mg) PO BEDTIME #60 caps 02/09/25 02/19/25 02/18/25 Rx quetiapine 100 mg tablet (Seroquel) 100 mg PO .HS #30 tabs 02/09/25 02/19/25 02/18/25 Rx Allergies Allergy/AdvReac Type Severity Reaction Status Date / Time metformin Allergy Severe ADR-Diarrhe Verified 02/22/25 18:16 a codeine Allergy Intermediate HALLUCINATI Verified 02/22/25 18:16 ONS latex Allergy Intermediate HIVES Verified 02/22/25 18:16 aspirin Allergy RASH Verified 02/22/25 18:16 oxycodone (From Percocet) Allergy RASH Verified 02/22/25 18:16 topiramate (From Topamax) Allergy RASH Verified 02/22/25 18:16 sumatriptan AdvReac Intermediate SOB; Verified 02/22/25 18:16 WHEEZING; DIZZINESS Current Medications Generic Name Dose Route Start Last Admin Trade Name Freq PRN Reason Stop Dose Admin Sodium Chloride 1,000 mls @ 15 mls/hr 02/24/25 08:10 02/24/25 08:30 Sodium Chloride 0.9% IV 02/25/25 08:09 15 mls/hr .Q24H PRN Administration COLONOSCOPY FLUIDS PFSH Anesthesia Medical History (Updated 02/22/25 @ 20:36 by JACK Barr) Lumbar radiculopathy Chronic back pain greater than 3 months duration Family history of colon cancer in father On combination antipsychotic drug therapy Instability of left knee joint Primary osteoarthritis of left knee GERD without esophagitis Calculus of kidney L 4.7mm UVP junction on CT Encounter for chronic pain management tramadol for chronic back pain Pain management contract signed tramadol; 10.9.24 HOMER (obstructive sleep apnea) on BIPAP Diabetic polyneuropathy associated with type 2 diabetes mellitus Uncontrolled type 2 diabetes mellitus with insulin therapy Facet arthritis, degenerative, lumbar spine Atherosclerosis of [place] coronary artery without angina pectoris Insomnia Urolithiasis Morbid obesity Bipolar 2 disorder Post-traumatic stress disorder, chronic Nicotine dependence, cigarettes, uncomplicated Psychiatric care Major depressive disorder without psychotic features Dyslipidemia Low back pain with sciatica Hypothyroidism Surgical History Hx of percutaneous transluminal coronary angioplasty History of total knee arthroplasty Right--has had 2 TKA--first in [facility]--got infected then had another TKA at [facility] Hx laparoscopic cholecystectomy 03/01/23 Dr. Alarcon Hx of colonoscopy 2009 History of hernia repair umbilical and abdominal R side H/O: hysterectomy w/ BSO; had precancerous cells age 14, then had hyst for menometrorrhagia Hx of appendectomy 2005 Hx of laparoscopic gastric banding 2009 Family History Mother CAD (coronary artery disease) Stroke Father CAD (coronary artery disease) Colon cancer Other Cancer Diabetes Hypertension Social History Smoking and tobacco/nicotine status: current every day tobacco/nicotine user (Mainly vapes) cigarettes Packs smoked per day: 1.5 Years cigarettes smoked: 28 Alcohol intake: never Substance/Drug Use: never Household members: significant other Housing: House Marital status: / Number of children: 0 Current occupational status: employed Current occupation: [employer] and [employer] Female Reproductive History Spontaneous abortions: No Data Anesthesia Cardiac Studies: Echocardiogram 10/23/24 Sestamibi Stress Test (Cardiology) 09/23/23 Stress Echocardiogram 05/09/21 Cardiac Event Monitor 04/28/24
--- NOTE | 2025-02-24 09:45 | W.PM.OPSFHP ---
Same Day Surgery H&P Indication for Procedure/HPI DATE OF PROCEDURE: February 24, 2025 CHIEF COMPLAINT/INDICATIONFOR SURGICAL PROCEDURE: screening colonoscopy PREOP DIAGNOSIS: screening colonoscopy PLANNED PROCEDURE: Operation Date: 02/24/25 09:30 Proposed Procedures p Colonoscopy [id number] G0121 Z12.11(Not Applicable) - Enrico Simon MD Medications/Allergies* Home Medications ?Medication ?Instructions ?Recorded ?Confirmed ?Type atorvastatin 40 mg tablet (Lipitor) 40 mg PO QPM 09/05/24 02/19/25 History insulin lispro 100 unit/mL See Rx Instructions .Route .COMPLEX 09/05/24 02/19/25 History subcutaneous pen (Humalog KwikPen (U-100) Insulin) Allergies/Adverse Reactions Allergy/AdvReac Type Severity Reaction Status Date / Time metformin Allergy Severe ADR-Diarrhe Verified 02/22/25 18:16 a codeine Allergy Intermediate HALLUCINATI Verified 02/22/25 18:16 ONS latex Allergy Intermediate HIVES Verified 02/22/25 18:16 aspirin Allergy RASH Verified 02/22/25 18:16 oxycodone (From Percocet) Allergy RASH Verified 02/22/25 18:16 topiramate (From Topamax) Allergy RASH Verified 02/22/25 18:16 sumatriptan AdvReac Intermediate SOB; Verified 02/22/25 18:16 WHEEZING; DIZZINESS Current Medications: Generic Name Dose Route Start Last Admin Trade Name Freq PRN Reason Stop Dose Admin Sodium Chloride 1,000 mls @ 15 mls/hr 02/24/25 08:10 02/24/25 08:30 Sodium Chloride 0.9% IV 02/25/25 08:09 15 mls/hr .Q24H PRN Administration COLONOSCOPY FLUIDS Pertinent History/Comorbid Conditions* Medical History (Updated 02/22/25 @ 20:36 by JACK Barr) Lumbar radiculopathy Chronic back pain greater than 3 months duration Family history of colon cancer in father On combination antipsychotic drug therapy Instability of left knee joint Primary osteoarthritis of left knee GERD without esophagitis Calculus of kidney L 4.7mm UVP junction on CT Encounter for chronic pain management tramadol for chronic back pain Pain management contract signed tramadol; 10.9.24 HOMER (obstructive sleep apnea) on BIPAP Diabetic polyneuropathy associated with type 2 diabetes mellitus Uncontrolled type 2 diabetes mellitus with insulin therapy Facet arthritis, degenerative, lumbar spine Atherosclerosis of [place] coronary artery without angina pectoris Insomnia Urolithiasis Morbid obesity Bipolar 2 disorder Post-traumatic stress disorder, chronic Nicotine dependence, cigarettes, uncomplicated Psychiatric care Major depressive disorder without psychotic features Dyslipidemia Low back pain with sciatica Hypothyroidism Surgical History (Updated 10/25/24 @ 00:00 by SHAJI Thomas) Hx of percutaneous transluminal coronary angioplasty History of total knee arthroplasty Right--has had 2 TKA--first in [facility]--got infected then had another TKA at [facility] Hx laparoscopic cholecystectomy 03/01/23 Dr. Alarcon Hx of colonoscopy 2009 History of hernia repair umbilical and abdominal R side H/O: hysterectomy w/ BSO; had precancerous cells age 14, then had hyst for menometrorrhagia Hx of appendectomy 2005 Hx of laparoscopic gastric banding 2009 Family History (Updated 12/08/24 @ 10:57 by Mikaela Hernadez MD) Colon cancer Father Diabetes CAD (coronary artery disease) Mother Father Cancer Hypertension Stroke Mother Social History Smoking and tobacco/nicotine status: current every day tobacco/nicotine user (Mainly vapes) cigarettes Packs smoked per day: 1.5 Years cigarettes smoked: 28 Alcohol intake: never Substance/Drug Use: never Household members: significant other Housing: House Marital status: / Number of children: 0 Current occupational status: employed Current occupation: [employer] and [employer] Pertinent Exam Findings alert, oriented x 3, clear to auscultation bilaterally, regular rate & rhythm and procedure specific exam findings abdomen soft, nt, nd Recommendations Risks and benefits of procedure reviewed and Patient/family agree to proceed Surgery/Procedure today Coding Level of Care Code Acute Code for Alcides Biggs
--- NOTE | 2025-02-24 09:57 | PC.NURSE ---
cecum time 0999
[2025-02-24 10:16] VITALS: BP 148/97; PULSE 76; RESP 16; TEMP 36.6; O2SAT 90
--- NOTE | 2025-02-24 10:49 | ANE.PACU2 ---
Inpatient post-anesthesia follow up: Airway intact: Yes Vital signs: Temperature 97.9 F Pulse Rate 76 Respiratory Rate 16 Blood Pressure 148/97 Pulse Oximetry 90 Oxygen Delivery Me thod Room Air Oxygen Flow Rate Fraction of Inspir ed Oxygen Hydration adequate: Yes Nausea and vomiting: No Pain level: 1 Mental status: Baseline
== END 2025-02-24 10:49 | disposition home or self-care (01) ==
PROVIDERS: PCP Family Medicine; Visit Provider Student in an Organized Health Care Education/Training Program
PROC: 0DJD8ZZ Inspection of Lower Intestinal Tract, Via Natural or Artificial Opening Endoscopic (ICD-10-PCS; CPT 45378; principal; 2025-02-24 09:30)
DX: Z12.11 Encounter for screening for malignant neoplasm of colon (principal); K62.1 Rectal polyp; K21.9 Gastro-esophageal reflux disease without esophagitis; G47.33 Obstructive sleep apnea (adult) (pediatric); Z99.89 Dependence on other enabling machines and devices; E11.42 Type 2 diabetes mellitus with diabetic polyneuropathy; Z79.4 Long term (current) use of insulin; I25.10 Atherosclerotic heart disease of native coronary artery without angina pectoris; E66.01 Morbid (severe) obesity due to excess calories; Z68.41 Body mass index [BMI] 40.0-44.9, adult; F31.81 Bipolar II disorder; F43.12 Post-traumatic stress disorder, chronic; F17.210 Nicotine dependence, cigarettes, uncomplicated; F17.290 Nicotine dependence, other tobacco product, uncomplicated; E78.5 Hyperlipidemia, unspecified; E03.9 Hypothyroidism, unspecified; J44.9 Chronic obstructive pulmonary disease, unspecified; I10 Essential (primary) hypertension
CPT/HCPCS: 36416; 45385; 82962; 88305; J2704; J7030

== ENCOUNTER → 2025-03-12 10:37 | Outpatient (BNVA) | payer MEDICAID, SELFPAY ==
[2024-10-24 15:22] VITALS: BP 117/82; BMI 42.7
== END ==
PROVIDERS: PCP Family Medicine; Visit Provider Student in an Organized Health Care Education/Training Program
DX: Z09 Encounter for follow-up examination after completed treatment for conditions other than malignant neoplasm (principal)
CPT/HCPCS: 99213

== ENCOUNTER 2025-04-25 16:12 | Emergency (ER) | payer MEDICAID, SELFPAY ==
[2024-10-24 15:22] VITALS: BP 117/82; BMI 42.7
--- OUTSIDE RECORDS SUMMARY | 2025-04-25 16:18 | XMS_ITS | Encounter Summary ---
Author Organization [facility] Address 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
--- OUTSIDE RECORDS SUMMARY | 2025-04-25 16:18 | XMS_ITS | Clinical Summary ---
Author Organization [facility] Address [address] Alvarez: Epic Prelude ADT MICHELLE LOZADA [address] Care Team Providers Care Weigher And Crusher Name Role Phone Siomara Laboy MD Primary Care Provider [phone] Allergies Active Allergy Reactions Criticality Noted Date [...] Fuentes 1 Active naloxone (Narcan) 4 mg/spray [place], Non-Aerosol [address] time only. [address]. Fuentes 1 Active fluticasone propionate (FLONASE) 50 mcg/spray [place], Suspension nasal inhaler SHAKE LIQUID AND USE 2 SPRAYS IN EACH NOSTRIL DAILY 16 Gram 1 1 Active LEVOTHYROXINE 88 mcg tablet TAKE 1 TABLET BY MOUTH EVERY DAY RN IMMUNOLOGY 90 Tablet 1 1 Active diphenhydrAMIN E [...] differently: 300 mgOral DAILY AT BEDTIME,Dr Rivers [facility], Reported on 07/29/2021 propranoloL (INDERAL) 10 mg tablet TAKE 1 TABLET(10 MG) BY MOUTH TWICE DAILY 180 Tablet 1 2 Active metFORMIN (GLUCOPHAGE) 1,000 mg tablet TAKE 1 TABLET(1000 MG) BY MOUTH TWICE DAILY WITH MEALS 180 Tablet 1 2 Active prazosin (MINIPRESS) 2 mg capsule Take 2 mg by mouth daily at bedtime. Dr. 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 TITLES Gender Identity Not on file Sexual Orientation Not on file Last Filed Vital Signs Vital Sign Reading Time Taken Comments Blood Pressure 104/69 07/15/2024 11:00 PM ADVERTISING JOB TITLES Pulse 79 07/15/2024 11:00 PM ADVERTISING JOB TITLES Temperature 35.7 C (96.2 F) 07/15/2024 8:37 PM ADVERTISING JOB TITLES Respiratory Rate 10 07/15/2024 11:00 PM ADVERTISING JOB TITLES Oxygen Saturation 91% 07/15/2024 11:00 PM ADVERTISING JOB TITLES Inhaled Oxygen Concentration - - Weight 111.1 kg (245 lb) 07/15/2024 8:37 PM ADVERTISING JOB TITLES Height 162.6 cm (5' 4 ) 07/15/2024 8:37 PM ADVERTISING JOB TITLES Body Mass Index 42.05 07/15/2024 8:37 PM ADVERTISING JOB TITLES Plan of Treatment Health Maintenance Due Date [...] 5 years 11/28/2023 INFLUENZA VACCINE (#1) 2025 , 03/21/2021, 02/12/2020, Additional history exists COVID-19 Vaccine ( season) 2025 07/05/2023, 03/24/2022, 04/16/2021, Additional history exists HPV VACCINES Aged Out No longer eligi ble based on patient's age to complete this topic Medical Devices Implanted Type Area Director Of Plant Operations Device Identifier Shelf Expiration Date Model / Serial / Lot Clip Ligating Vesocclude Med Ti [id number] - [id number] Implanted:Qty: 1 on 07/24/2019 by Juan Pablo Bullock MD Clip N/A: Abdomen [employer] [id number] / / [id number] Mesh Soft Mesh [id number] - [id number] Implanted:11/2019 by Juan Pablo Bullock MD (Quantity not on file) Mesh N/A: Abdomen [employer] 02/13/2024 [id number] / / [id number] Procedures Procedure Name Priority Date/Time Associated Diagnosis Comments DIABETES EYE EXAM Routine 12/23/2021 HEMOGLOBIN A1C Routine 11/18/2021 2:41 PM CDT Controlled type 2 diabetes mellitus without complication, with long-term current use of insulin (CMS/HCC) LIPID PANEL Routine 07/12/2021 8:27 AM ADVERTISING JOB TITLES Controlled type 2 diabetes mellitus without complication, unspecified 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 insulin use (CMS/HCC) MICROALBUMIN/CREATI NINE RATIO, RANDOM UR Routine 06/24/2021 2:55 PM ADVERTISING JOB TITLES Controlled type 2 diabetes mellitus without complication, unspecified whether jail insulin use (CMS/HCC) MAMMO SCREEN BILAT W OR WO CAD Routine 01/14/2020 11:37 AM CDT Breast cancer screening by mammogram from Last 3 Months or Most Recently Relevant to Health Maintenance Results * DIABETES EYE EXAM (12/23/2021) us Abstract Provider HEALTH MAINTENANCE Final Resul t * (ABNORMAL) HEMOGLOBIN A1C (11/18/2021 2:41 PM CDT) HEMOGLOBIN A1C 6.5(H) <5.7 % of total Hgb [facility] Comment: For someone without known diabetes, a [...] children. ESTIMATED AVERAGE GLUCOSE (MG/DL) 140 mg/dL [facility] ESTIMATED AVERAGE GLUCOSE (MMOL/L) 7.7 mmol/L [facility] Comment: Test Performed at: [facility] [address] [place] [address] Josh Solitario D.O., MPH Blood 11/18/2021 2:41 PM CDT 11/19/2021 3:43 AM CDT Siomara Laboy MD CHEMISTRY ORDERABLES Final Result [facility] [phone] * (ABNORMAL) LIPID PANEL (07/12/2021 8:27 AM ADVERTISING JOB TITLES) CHOLESTEROL 129 <200 mg/dL [facility] HDL 35(L) > OR = 50 mg/dL [facility] TRIGLYCERIDE 192(H) <150 mg/dL [facility] LDL CALCULATED 68 mg/dL (calc) [facility] Comment: Reference range: <100 Desirable range <100 mg/dL for primary prevention; <70 mg/dL for patients with CHD or diabetic patients with > or = 2 CHD risk factors. LDL-C is now calculated using the Jennifer calculation, which is a validated novel method providing better accuracy than the Friedewald equation in the estimation of LDL-C. Miky SS et al. HUAN. 2013;310(19): 9769-1734 (http://education.[employer].com/faq/CUA209) CHOL/HDL RATIO 3.7 <5.0 (calc) [facility] TOTAL NON-HDL CHOL(LDL+VLDL) 94 <130 mg/dL (calc) [facility] Comment: For patients with diabetes plus 1 major ASCVD risk factor, treating to a non-HDL-C goal of <100 mg/dL (LDL-C of <70 mg/dL) is considered a therapeutic option. Test Performed at: [facility] [address] Josh Solitario D.O., MPH Blood 07/12/2021 8:27 AM ADVERTISING JOB TITLES 07/13/2021 4:04 AM ADVERTISING JOB TITLES us Siomara Laboy MD CHEMISTRY ORDERABLES Final Result Performing Organization Address [facility] de Phone Number [facility] [address] [place] [address] * MICROALBUMIN/CREATININE RATIO, RANDOM UR (06/24/2021 2:55 PM ADVERTISING JOB TITLES) Creatinine, Urine 188 20 - 275 mg/dL [facility] MICROALBUMIN, URINE 0.6 See Note: mg/dL [facility] Comment: Reference Range: Reference Range Not established MICROALBUMIN/CREAT RATIO, UR 3 <30 mcg/mg creat [facility] Comment: The ADA defines abnormalities in albumin excretion as follows: Albuminuria Category Result (mcg/mg creatinine) Normal to Mildly increased <30 Moderately increased 30-299 Severely increased > OR = 300 The ADA recommends that at least two of three specimens collected within a 3-6 month period be abnormal before considering a patient to be within a diagnostic category. Test Performed at: [facility] [address] [address] [place] [address] Josh Solitario D.O., MPH Urine URINE SPECIMEN OBTAINED BY CLEAN CATCH PROCEDURE / Unknown 06/24/2021 2:55 PM ADVERTISING JOB TITLES 06/25/2021 4:26 AM ADVERTISING JOB TITLES us Siomara Laboy MD URINE ORDERABLES Final Resu lt Performing Organization Address [facility]/State/ZIP Co de Phone Number [facility] [address] [place] [address] * MAMMO SCREEN BILAT W OR WO [...] Phone Billing Address Personal/Family [address] [place] [address] [employer] Care Teams Weigher And Crusher Relationship Specialty Start Date End Date Siomara Laboy MD [address] [phone] PCP - General Family Practice 04/19/18
[2025-04-25 16:22] VITALS: BP 123/88; PULSE 82; RESP 16; TEMP 36.7; O2SAT 94; BMI 43.4
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
--- NOTE | 2025-04-25 18:14 | ED_ITS ---
Documented by User: JACK Cabello 04/25/25 21:24 HPI - Headache General: Chief Complaint: Headache Stated Complaint: Hit head hurts N/V felt like passing out Time Seen by Provider: 04/25/25 17:53 Source: patient Mode of arrival: ambulatory Limitations: no limitations History of Present Illness: 4-year-old female present to the [facility] injuring her head last night. States that last night she fell on accident, striking the side of her head. She has had 10/10 headache since, does report a history of migraines states this feels different. Also notes 1 episode of vomiting. Today at work she states that she had a couple times where she felt like she was going to pass out. Has been taking Tylenol with no relief. No visual changes or unilateral numbness weakness or tingling in her arms or legs. No dizziness or lightheadedness. She does not use a blood thinner. She did not lose consciousness when she hit her head. MD elicited complaint: headache Pertinent past history: recent trauma Onset (ago): day(s) Associated symptoms: Reports nausea, pre-syncope and vomiting; Deny chest pain, fever(s), lightheadedness or rash Related Data Home Medications ?Medication ?Instructions ?Recorded ?Confirmed insulin lispro 100 unit/mL See Rx Instructions .Route .COMPLEX 09/05/24 04/10/25 subcutaneous pen (Humalog KwikPen (U-100) Insulin) Previous Rx's ?Medication ?Instructions ?Recorded omeprazole 20 mg capsule,delayed 20 mg PO DAILY #90 ca ps 05/30/24 release empagliflozin 25 mg tablet 25 mg PO DAILY #90 tabs 03/12 (Jardiance) gabapentin 300 mg capsule See Rx Instructions .Route 0 11/06/24 .COMPLEX #120 caps carvedilol 3.125 mg tablet 3.125 mg PO BID #60 tabs insulin glargine 100 unit/mL (3 60 unit (0.6 mL) SUBCU T QAM #45 mL 01/15/25 mL) subcutaneous pen (Lantus Solostar U-100 Insulin) blood-glucose sensor (DexUnboundID G7 #3 ea 01/16/25 Sensor device) tramadol 50 mg tablet 50 mg PO TID PRN pain #90 ta bs 01/26/25 dulaglutide 1.5 mg/0.5 mL 1.5 mg (0.5 mL) SUBCUT .qwk #2 mL 02/06/25 [facility] ([facility]) pantoprazole 40 mg tablet,delayed 40 mg PO BID #30 tab s 02/27/25 release tizanidine 4 mg tablet 4 mg PO TID PRN Muscle Spasm #60 03/31/25 tabs atorvastatin 40 mg tablet (Lipitor) 40 mg PO QPM #90 t abs 04/10/25 citalopram 20 mg tablet 20 mg PO QAM #30 tabs prazosin 2 mg capsule 4 mg (2 x 2 mg) PO BEDTIME # 60 caps 04/10/25 quetiapine 100 mg tablet (Seroquel) 100 mg PO .HS #30 tabs 04/10/25 fluconazole 150 mg tablet 150 mg PO Q3D PRN yeast infe ction 04/21/25 #7 tabs Allergies Allergy/AdvReac Type Severity Reaction Status Date / Time metformin Allergy Severe ADR-Diarrhe Verified 04/25/25 16:26 a codeine Allergy Intermediate HALLUCINATI Verified 04/25/25 16:26 ONS latex Allergy Intermediate HIVES Verified 04/25/25 16:26 aspirin Allergy RASH Verified 04/25/25 16:26 oxycodone (From Percocet) Allergy RASH Verified 04/25/25 16:26 topiramate (From Topamax) Allergy RASH Verified 04/25/25 16:26 sumatriptan AdvReac Intermediate SOB; Verified 04/25/25 16:26 WHEEZING; DIZZINESS Review of Systems General: Reports: 10 or more systems reviewed and unremarkable except in HPI and below Const: Denies: fever(s), chills or fatigue Eyes: Denies: change in vision ENMT: Denies: throat pain, ear or mastoid pain or nasal discharge Card: Reports: pre-syncope; Denies: chest pain, palpitations, swelling of feet/ankles or lightheadedness Resp: Denies: dyspnea, productive cough or wheezing GI: Reports: nausea and vomiting; Denies: abdominal pain, diarrhea or constipation : Denies: flank pain, difficulty voiding, dysuria or urinary frequency Musc: Denies: neck pain, back pain or joint pain Skin/Breast: Denies: rash Neuro: Reports: headache(s); Denies: numbness in extremities, weakness in extremities, lack of coordination, difficulty walking or seizure-like activity PFSH ED PFSH: Medical History Lumbar radiculopathy Chronic back pain greater than 3 months duration Family history of colon cancer in father On combination antipsychotic drug therapy Instability of left knee joint Primary osteoarthritis of left knee GERD without esophagitis Calculus of kidney L 4.7mm UVP junction on CT Encounter for chronic pain management tramadol for chronic back pain Pain management contract signed tramadol; 03.26.24 HOMER (obstructive sleep apnea) on BIPAP Diabetic polyneuropathy associated with type 2 diabetes mellitus Uncontrolled type 2 diabetes mellitus with insulin therapy Facet arthritis, degenerative, lumbar spine Atherosclerosis of [place] coronary artery without angina pectoris Insomnia Urolithiasis Morbid obesity Bipolar 2 disorder Post-traumatic stress disorder, chronic Nicotine dependence, cigarettes, uncomplicated Psychiatric care Major depressive disorder without psychotic features Dyslipidemia Low back pain with sciatica Hypothyroidism Surgical History Hx of percutaneous transluminal coronary angioplasty History of total knee arthroplasty Right--has had 2 TKA--first in [facility] [place]--got infected then had another TKA at [facility] Hx laparoscopic cholecystectomy 03/01/23 Dr. Alarcon Hx of colonoscopy 2009 History of hernia repair umbilical and abdominal R side H/O: hysterectomy w/ BSO; had precancerous cells age 14, then had hyst for menometrorrhagia Hx of appendectomy 2005 Hx of laparoscopic gastric banding 2009 Family History Mother CAD (coronary artery disease) Stroke Father CAD (coronary artery disease) Colon cancer Other Cancer Diabetes Hypertension Social History Smoking and tobacco/nicotine status: current every day tobacco/nicotine user cigarettes Packs smoked per day: 1.5 Years cigarettes smoked: 28 Alcohol intake: never Substance/Drug Use: never Household members: significant other Housing: House Marital status: / Number of children: 0 Current occupational status: employed Current occupation: [employer] and [employer] Female Reproductive History: Spontaneous abortions: No Physical Exam Const: COMMON NORMALS: no acute distress, patient oriented x3 and no limitations GENERAL APPEARANCE: cooperative, comfortable and well developed ORIENTATION/CONSCIOUSNESS: Yes awake, Yes oriented to person, Yes oriented to place and Yes oriented to time HENMT: COMMON NORMALS: normocephalic, atraumatic and hearing grossly normal bilaterally HEAD & SCALP: normocephalic and atraumatic; no Cha's sign and no raccoon eyes Eye: COMMON NORMALS: Equal, round and reactive pupils present, EOMs intact bilaterally and conjunctivae normal CONJUNCTIVA: Yes conjunctivae normal PUPIL: Yes Equal, round and reactive pupils present Neck/C-Spine: COMMON NORMALS: full ROM, supple and no JVD Resp: COMMON NORMALS: normal respiratory effort, No retractions, No use of accessory muscles and clear to auscultation bilaterally AUSCULTATION: clear to auscultation bilaterally Cardio: COMMON NORMALS: no JVD, regular rate, regular rhythm, No clicks present (Cardio), No murmurs present (Cardio) and No rub (Cardio) RATE: regular rate RHYTHM: regular rhythm Extremity: COMMON NORMALS: normal to inspection, full ROM and capillary refill normal Neuro: COMMON NORMALS: patient oriented x3, CN's II-XII intact bilaterally, moves all extremities, no focal motor deficits and no sensory deficits noted SENSORIUM/ORIENTATION: Yes oriented to person, Yes oriented to place and Yes oriented to time Skin: COMMON NORMALS: no rashes or lesions noted GENERAL SKIN EXAM: no rashes or lesions noted Course Vital Signs: Vital signs: Vital Signs Temperature 98.0 F 04/25/25 16:22 Pulse Rate 82 04/25/25 16:22 Respiratory Rate 16 04/25/25 16:22 Blood Pressure 123/88 04/25/25 16:22 Pulse Oximetry 94 04/25/25 16:22 MDM - Headache Medical Decision Making Patient presented, fell last night hurt her head and the headache has been worsening throughout the day. Also states she has felt she is going to pass out today had some vomiting. Did not lose conscious when she initially hit her head. No blood thinners. Neurologically intact at time of physical exam. Head CT normal, she has relief of symptoms after medications here in the Emergency Department likely this could have been exacerbation of her migraine history following the head injury, or just from the closed head injury itself but regardless there is no further need for workup in the ED at this time. Lab Data Radiology Impressions Head CT 04/25/25 17:56 IMPRESSION: No acute intracranial hemorrhage. All radiology interpretation(s) finalized by discharge Discharge Plan Discharge Patient Disposition: Home Clinical Impression: CHI (closed head injury) Qualifiers: Encounter type: initial encounter Qualified Code(s): S09.90XA - Unspecified injury of head, initial encounter Condition: Stable Prescriptions: No Action Trulicity 1.5 mg/0.5 mL pen injector 1.5 mg SUBCUT .qwk Qty: 2 3RF pantoprazole 40 mg tablet,delayed release (DR/EC) 40 mg PO BID Qty: 30 0RF Rx Instructions: stop omeprazole while taking this omeprazole 20 mg capsule,delayed release(DR/EC) 20 mg PO DAILY Qty: 90 3RF gabapentin 300 mg capsule See Rx Instructions .ROUTE .COMPLEX Qty: 120 5RF Dose Instruction: TAKE 1 CAPSULE BY MOUTH THREE TIMES DAILY AT 9 AM, NOON, AND 8 PM Rx Instructions: Take 1 capsule (300mg) by mouth at 9am and 12pm and two capsules (600mg) at bedtime. quetiapine [Seroquel] 100 mg tablet 100 mg PO .HS Qty: 30 2RF prazosin 2 mg capsule 4 mg PO BEDTIME Qty: 60 2RF citalopram 20 mg tablet 20 mg PO QAM Qty: 30 2RF Jardiance 25 mg tablet 25 mg PO DAILY Qty: 90 1RF Rx Instructions: on insulin, failed metformin; uncontrolled carvedilol 3.125 mg tablet 3.125 mg PO BID Qty: 60 5RF insulin glargine [Lantus Solostar U-100 Insulin] 100 unit/mL (3 mL) insulin pen 60 unit SUBCUT QAM Qty: 45 1RF (DME) Dexcom G7 Sensor Device See Rx Instructions .MEDSUPPLY Qty: 3 12RF Rx Instructions: Change every 10 days; Use as directed to check blood sugar tramadol 50 mg tablet 50 mg PO TID PRN (Reason: pain) Qty: 90 3RF tizanidine 4 mg tablet 4 mg PO TID PRN (Reason: Muscle Spasm) Qty: 60 2RF atorvastatin [Lipitor] 40 mg tablet 40 mg PO QPM Qty: 90 2RF fluconazole 150 mg tablet 150 mg PO Q3D PRN (Reason: yeast infection) Qty: 7 0RF insulin lispro [Humalog KwikPen Insulin] 100 unit/mL insulin pen See Rx Instructions .ROUTE .COMPLEX Rx Instructions: Per sliding scale; up to 30 units three times daily with meals. Discharge Orders: Discharge ED (Routine); Ordered 04/25/25 Ordered By: Zenon Lombardi Referrals: Moris Null DO [Primary Care Provider, Family Practice] Patient Instructions: Patient Portal & Kalyn Instructions Activity Restrictions/Additional Instructions: Knee Sprain Discharge Instructions You have been diagnosed with a right knee sprain. This means the ligaments around your knee have been stretched or mildly injured, but your X-ray did not show any broken bones. You will be referred to an engagement specialist for further evaluation, which may include an MRI if your symptoms do not improve. At home, follow these steps for recovery: - Rest your knee. Avoid activities that cause pain or put stress on your knee. Try to limit walking and standing for long periods. - Apply ice. Use an ice pack wrapped in a damp cloth on your knee for 20?30 minutes, 3?4 times a day. Do not put ice directly on your skin. - Compression. You may use an elastic bandage or knee sleeve for comfort, but make sure it is not too tight. If you notice numbness, tingling, or color changes in your foot, remove the wrap. - Elevate your leg. When sitting or lying down, prop your leg up on pillows to help reduce swelling. - Pain relief. You may use acetaminophen (Tylenol) or a short course of low-dose ibuprofen (Advil, Motrin) as needed for pain, unless you have been told not to use these medications. - Early movement. As pain allows, gently move your knee to keep it from getting stiff. Avoid forceful bending or twisting. - Activity modification. Gradually return to normal activities as your pain improves. If walking is painful, use a cane or crutches for support. Watch for these signs and seek medical attention if you notice: - Severe pain or swelling that does not improve - Inability to bear weight or walk - Numbness, tingling, or loss of movement in your leg or foot - Redness, warmth, or fever Follow-up: Attend your orthopedic appointment as scheduled. If your symptoms persist or worsen, further imaging (such as MRI) may be needed to check for ligament or meniscus injuries. Most knee sprains improve with conservative care and time. Staying active within your comfort level and following these instructions will help your recovery. Print Language: Yakut Coding Level of Care Code ED Web Content Writer for [employer] Documented by User: Jerrell Rivers, DO 04/26/25 03:38 HPI - Headache General: Chief Complaint: Headache Stated Complaint: Hit head hurts N/V felt like passing out Time Seen by Provider: 04/25/25 17:53 Related Data Home Medications ?Medication ?Instructions ?Recorded ?Confirmed insulin lispro 100 unit/mL See Rx Instructions .Route .COMPLEX 09/05/24 04/10/25 subcutaneous pen (Humalog KwikPen (U-100) Insulin) Previous Rx's ?Medication ?Instructions ?Recorded omeprazole 20 mg capsule,delayed 20 mg PO DAILY #90 ca ps 05/30/24 release empagliflozin 25 mg tablet 25 mg PO DAILY #90 tabs 03/12 (Jardiance) gabapentin 300 mg capsule See Rx Instructions .Route 0 11/06/24 .COMPLEX #120 caps carvedilol 3.125 mg tablet 3.125 mg PO BID #60 tabs insulin glargine 100 unit/mL (3 60 unit (0.6 mL) SUBCU T QAM #45 mL 01/15/25 mL) subcutaneous pen (Lantus Solostar U-100 Insulin) blood-glucose sensor ([employer] G7 #3 ea 01/16/25 Sensor device) tramadol 50 mg tablet 50 mg PO TID PRN pain #90 ta bs 01/26/25 dulaglutide 1.5 mg/0.5 mL 1.5 mg (0.5 mL) SUBCUT .qwk #2 mL 02/06/25 subcutaneous [facility]or ([facility]) pantoprazole 40 mg tablet,delayed 40 mg PO BID #30 tab s 02/27/25 release tizanidine 4 mg tablet 4 mg PO TID PRN Muscle Spasm #60 03/31/25 tabs atorvastatin 40 mg tablet (Lipitor) 40 mg PO QPM #90 t abs 04/10/25 citalopram 20 mg tablet 20 mg PO QAM #30 tabs prazosin 2 mg capsule 4 mg (2 x 2 mg) PO BEDTIME # 60 caps 04/10/25 quetiapine 100 mg tablet (Seroquel) 100 mg PO .HS #30 tabs 04/10/25 fluconazole 150 mg tablet 150 mg PO Q3D PRN yeast infe ction 04/21/25 #7 tabs Allergies Allergy/AdvReac Type Severity Reaction Status Date / Time metformin Allergy Severe ADR-Diarrhe Verified 04/25/25 16:26 a codeine Allergy Intermediate HALLUCINATI Verified 04/25/25 16:26 ONS latex Allergy Intermediate HIVES Verified 04/25/25 16:26 aspirin Allergy RASH Verified 04/25/25 16:26 oxycodone (From Percocet) Allergy RASH Verified 04/25/25 16:26 topiramate (From Topamax) Allergy RASH Verified 04/25/25 16:26 sumatriptan AdvReac Intermediate SOB; Verified 04/25/25 16:26 WHEEZING; DIZZINESS PFSH ED PFSH: Medical History Lumbar radiculopathy Chronic back pain greater than 3 months duration Family history of colon cancer in father On combination antipsychotic drug therapy Instability of left knee joint Primary osteoarthritis of left knee GERD without esophagitis Calculus of kidney L 4.7mm UVP junction on CT Encounter for chronic pain management tramadol for chronic back pain Pain management contract signed tramadol; 10.24 HOMER (obstructive sleep apnea) on BIPAP Diabetic polyneuropathy associated with type 2 diabetes mellitus Uncontrolled type 2 diabetes mellitus with insulin therapy Facet arthritis, degenerative, lumbar spine Atherosclerosis of [place] coronary artery without angina pectoris Insomnia Urolithiasis Morbid obesity Bipolar 2 disorder Post-traumatic stress disorder, chronic Nicotine dependence, cigarettes, uncomplicated Psychiatric care Major depressive disorder without psychotic features Dyslipidemia Low back pain with sciatica Hypothyroidism Surgical History Hx of percutaneous transluminal coronary angioplasty History of total knee arthroplasty Right--has had 2 TKA--first in [facility] [place]--got infected then had another TKA at [facility] Hx laparoscopic cholecystectomy 03/01/23 Dr. Alarcon Hx of colonoscopy 2009 History of hernia repair umbilical and abdominal R side H/O: hysterectomy w/ BSO; had precancerous cells age 14, then had hyst for menometrorrhagia Hx of appendectomy 2005 Hx of laparoscopic gastric banding 2009 Family History Mother CAD (coronary artery disease) Stroke Father CAD (coronary artery disease) Colon cancer Other Cancer Diabetes Hypertension Social History Smoking and tobacco/nicotine status: current every day tobacco/nicotine user cigarettes Packs smoked per day: 1.5 Years cigarettes smoked: 28 Alcohol intake: never Substance/Drug Use: never Household members: significant other Housing: House Marital status: / Number of children: 0 Current occupational status: employed Current occupation: [employer] Vital Signs: Vital signs: Vital Signs Temperature 98.0 F 04/25/25 16:22 Pulse Rate 82 04/25/25 16:22 Respiratory Rate 16 04/25/25 16:22 Blood Pressure 123/88 04/25/25 16:22 Pulse Oximetry 94 04/25/25 16:22 MDM - Headache Medical Decision Making Patient presented, fell last night hurt her head and the headache has been worsening throughout the day. Also states she has felt she is going to pass out today had some vomiting. Did not lose conscious when she initially hit her head. No blood thinners. Neurologically intact at time of physical exam. Head CT normal, she has relief of symptoms after medications here in the Emergency Department likely this could have been exacerbation of her migraine history following the head injury, or just from the closed head injury itself but regardless there is no further need for workup in the ED at this time. Patient originally seen by Mr. Maria C PA-C. I agree with his history, evaluation, and management. Lab Data Radiology Impressions Head CT 04/25/25 17:56 IMPRESSION: No acute intracranial hemorrhage. Discharge Plan Discharge Patient Disposition: Home Clinical Impression: CHI (closed head injury) Qualifiers: Encounter type: initial encounter Qualified Code(s): S09.90XA - Unspecified injury of head, initial encounter Condition: Stable Prescriptions: No Action Trulicity 1.5 mg/0.5 mL pen injector 1.5 mg SUBCUT .qwk Qty: 2 3RF pantoprazole 40 mg tablet,delayed release (DR/EC) 40 mg PO BID Qty: 30 0RF Rx Instructions: stop omeprazole while taking this omeprazole 20 mg capsule,delayed release(DR/EC) 20 mg PO DAILY Qty: 90 3RF gabapentin 300 mg capsule See Rx Instructions .ROUTE .COMPLEX Qty: 120 5RF Dose Instruction: TAKE 1 CAPSULE BY MOUTH THREE TIMES DAILY AT 9 AM, NOON, AND 8 PM Rx Instructions: Take 1 capsule (300mg) by mouth at 9am and 12pm and two capsules (600mg) at bedtime. quetiapine [Seroquel] 100 mg tablet 100 mg PO .HS Qty: 30 2RF prazosin 2 mg capsule 4 mg PO BEDTIME Qty: 60 2RF citalopram 20 mg tablet 20 mg PO QAM Qty: 30 2RF Jardiance 25 mg tablet 25 mg PO DAILY Qty: 90 1RF Rx Instructions: on insulin, failed metformin; uncontrolled carvedilol 3.125 mg tablet 3.125 mg PO BID Qty: 60 5RF insulin glargine [Lantus Solostar U-100 Insulin] 100 unit/mL (3 mL) insulin pen 60 unit SUBCUT QAM Qty: 45 1RF (DME) Dexcom G7 Sensor Device See Rx Instructions .MEDSUPPLY Qty: 3 12RF Rx Instructions: Change every 10 days; Use as directed to check blood sugar tramadol 50 mg tablet 50 mg PO TID PRN (Reason: pain) Qty: 90 3RF tizanidine 4 mg tablet 4 mg PO TID PRN (Reason: Muscle Spasm) Qty: 60 2RF atorvastatin [Lipitor] 40 mg tablet 40 mg PO QPM Qty: 90 2RF fluconazole 150 mg tablet 150 mg PO Q3D PRN (Reason: yeast infection) Qty: 7 0RF insulin lispro [Humalog KwikPen Insulin] 100 unit/mL insulin pen See Rx Instructions .ROUTE .COMPLEX Rx Instructions: Per sliding scale; up to 30 units three times daily with meals. Discharge Orders: Discharge ED (Routine); Ordered 04/25/25 Ordered By: Zenon Lombardi Referrals: Moris Null DO [Primary Care Provider, Family Practice] Patient Instructions: Patient Portal & Kalyn Instructions Activity Restrictions/Additional Instructions: Knee Sprain Discharge Instructions You have been diagnosed with a right knee sprain. This means the ligaments around your knee have been stretched or mildly injured, but your X-ray did not show any broken bones. You will be referred to an engagement specialist for further evaluation, which may include an MRI if your symptoms do not improve. At home, follow these steps for recovery: - Rest your knee. Avoid activities that cause pain or put stress on your knee. Try to limit walking and standing for long periods. - Apply ice. Use an ice pack wrapped in a damp cloth on your knee for 20?30 minutes, 3?4 times a day. Do not put ice directly on your skin. - Compression. You may use an elastic bandage or knee sleeve for comfort, but make sure it is not too tight. If you notice numbness, tingling, or color changes in your foot, remove the wrap. - Elevate your leg. When sitting or lying down, prop your leg up on pillows to help reduce swelling. - Pain relief. You may use acetaminophen (Tylenol) or a short course of low-dose ibuprofen (Advil, Motrin) as needed for pain, unless you have been told not to use these medications. - Early movement. As pain allows, gently move your knee to keep it from getting stiff. Avoid forceful bending or twisting. - Activity modification. Gradually return to normal activities as your pain improves. If walking is painful, use a cane or crutches for support. Watch for these signs and seek medical attention if you notice: - Severe pain or swelling that does not improve - Inability to bear weight or walk - Numbness, tingling, or loss of movement in your leg or foot - Redness, warmth, or fever Follow-up: Attend your orthopedic appointment as scheduled. If your symptoms persist or worsen, further imaging (such as MRI) may be needed to check for ligament or meniscus injuries. Most knee sprains improve with conservative care and time. Staying active within your comfort level and following these instructions will help your recovery. Print Language: Yakut Coding Level of Care Code ED Web Content Writer for Alcides Biggs
[2025-04-25] MEDS: diphenhydrAMINE 50 mg/mL SDV 1mL IVP (18:59)
[2025-04-25] MEDS: ondansetron 2 mg/ML SDV 2 mL 4 MG IVP (18:59)
== END 2025-04-25 21:08 | disposition home or self-care (01) ==
PROVIDERS: Emergency Provider Physician Assistant; PCP Family Medicine
DX: S09.8XXA Other specified injuries of head, initial encounter (principal); Z79.4 Long term (current) use of insulin; Z79.85 Long-term (current) use of injectable non-insulin antidiabetic drugs; F17.210 Nicotine dependence, cigarettes, uncomplicated; E78.5 Hyperlipidemia, unspecified; I25.10 Atherosclerotic heart disease of native coronary artery without angina pectoris; E11.42 Type 2 diabetes mellitus with diabetic polyneuropathy; W19.XXXA Unspecified fall, initial encounter
CPT/HCPCS: 70450; 96374; 96375; 99285; J1100; J1200; J1885; J2405; J7040

== ENCOUNTER → 2025-04-27 14:14 | Outpatient (BNVA) | payer MEDICAID, SELFPAY ==
[2024-10-24 15:22] VITALS: BP 117/82; BMI 42.7
== END ==
PROVIDERS: PCP Family Medicine; Visit Provider Nurse Practitioner
DX: M17.12 Unilateral primary osteoarthritis, left knee (principal); M25.362 Other instability, left knee; Z68.41 Body mass index [BMI] 40.0-44.9, adult
CPT/HCPCS: 20610; J1100; J2795; J3301; J9999

== ENCOUNTER 2025-05-22 14:25 | Emergency (ER) | payer MEDICAID, SELFPAY ==
[2024-10-24 15:22] VITALS: BP 117/82; BMI 42.7
[2025-05-22 14:27] VITALS: BP 199/155; PULSE 87; RESP 18; TEMP 36.5; O2SAT 97; BMI 42.5
--- NOTE | 2025-05-22 14:52 | W.ED.EXTPRO ---
HPI - Extremity Problem General: Chief complaint: Extremity Problem,Nontraumatic Stated complaint: LT knee inj Time Seen by Provider: 05/22/25 14:39 Source: patient Mode of arrival: wheelchair Limitations: no limitations History of Present Illness: Patient is a 44-year-old female who presents to the ED today with a complaint of left knee pain. Patient states she chronically has pain in the left knee and has been diagnosed with osteoarthritis. She is reportedly seen [facility] orthopedics and they are talking about a possible total knee replacement. Patient states yesterday she was walking on the knee but states she woke up today with significant discomfort. No injury or trauma. She has not noticed any redness or warmth to the knee. Last injection to the knee by orthopedics was over a month ago. No fevers. MD Complaint: joint pain Onset (ago): hour(s) (noticed when she awoke this AM-states knee was okay yesterday) Pain Consistency: constant Location: left and knee Radiation: none Exacerbating factors: range of motion, weight bearing, walking and palpation Associated symptoms: Reports no associated symptoms; Deny chest pain or fever(s) Related Data Home Medications ?Medication ?Instructions ?Recorded ?Confirmed insulin lispro 100 unit/mL See Rx Instructions .Route .COMPLEX 09/05/24 05/05/25 subcutaneous pen (Humalog KwikPen (U-100) Insulin) Previous Rx's ?Medication ?Instructions ?Recorded omeprazole 20 mg capsule,delayed 20 mg PO DAILY #90 caps 05/30/24 release gabapentin 300 mg capsule See Rx Instructions .Route 11/06/24 .COMPLEX #120 caps carvedilol 3.125 mg tablet 3.125 mg PO BID #60 tabs 12/05/24 insulin glargine 100 unit/mL (3 60 unit (0.6 mL) SUBCUT QAM #45 mL 01/15/25 mL) subcutaneous pen (Lantus Solostar U-100 Insulin) blood-glucose sensor ([employer]ake[employer] G7 #3 ea 01/16/25 Sensor device) tramadol 50 mg tablet 50 mg PO TID PRN pain #90 tabs 01/26/25 dulaglutide 1.5 mg/0.5 mL 1.5 mg (0.5 mL) SUBCUT .qwk #2 mL 02/06/25 subcutaneous pen injector (Trulicity) pantoprazole 40 mg tablet,delayed 40 mg PO BID #30 tabs 02/27/25 release tizanidine 4 mg tablet 4 mg PO TID PRN Muscle Spasm #60 03/31/25 tabs atorvastatin 40 mg tablet (Lipitor) 40 mg PO QPM #90 tabs 04/10/25 citalopram 20 mg tablet 20 mg PO QAM #30 tabs 04/10/25 prazosin 2 mg capsule 4 mg (2 x 2 mg) PO BEDTIME #60 caps 04/10/25 quetiapine 100 mg tablet (Seroquel) 100 mg PO .HS #30 tabs 04/10/25 amitriptyline 25 mg tablet 25 mg PO DAILY #30 tabs 05/11/25 empagliflozin 25 mg tablet 25 mg PO DAILY #90 tabs 05/11/25 (Jardiance) ibuprofen 800 mg tablet 800 mg PO Q8H PRN pain #20 tabs 05/22/25 methylprednisolone 4 mg tablets in See Rx Instructions PO .COMPLEX 05/22/25 a dose pack (Medrol (Eduardo)) #21 ea Allergies Allergy/AdvReac Type Severity Reaction Status Date / Time metformin Allergy Severe ADR-Diarrhe Verified 05/22/25 14:33 a codeine Allergy Intermediate HALLUCINATI Verified 05/22/25 14:33 ONS latex Allergy Intermediate HIVES Verified 05/22/25 14:33 aspirin Allergy RASH Verified 05/22/25 14:33 oxycodone (From Percocet) Allergy RASH Verified 05/22/25 14:33 topiramate (From Topamax) Allergy RASH Verified 05/22/25 14:33 sumatriptan AdvReac Intermediate SOB; Verified 05/22/25 14:33 WHEEZING; DIZZINESS Review of Systems Const: Denies: fever(s) Card: Denies: chest pain Resp: Denies: dyspnea Musc: Reports: joint pain (L knee); Denies: joint swelling, joint redness or joint warmth Neuro: Reports: difficulty walking (secondary to L knee pain); Denies: numbness in extremities or sensory changes PFSH ED PFSH: Medical History Lumbar radiculopathy Chronic back pain greater than 3 months duration Family history of colon cancer in father On combination antipsychotic drug therapy Instability of left knee joint Primary osteoarthritis of left knee GERD without esophagitis Calculus of kidney L 4.7mm UVP junction on CT Encounter for chronic pain management tramadol for chronic back pain Pain management contract signed tramadol; 10.9.24 HOMER (obstructive sleep apnea) on BIPAP Diabetic polyneuropathy associated with type 2 diabetes mellitus Uncontrolled type 2 diabetes mellitus with insulin therapy Facet arthritis, degenerative, lumbar spine Atherosclerosis of [place] coronary artery without angina pectoris Primary insomnia Urolithiasis Morbid obesity Bipolar 2 disorder Post-traumatic stress disorder, chronic Nicotine dependence, cigarettes, uncomplicated Psychiatric care Major depressive disorder without psychotic features Dyslipidemia Low back pain with sciatica Acquired hypothyroidism Surgical History Hx of percutaneous transluminal coronary angioplasty History of total knee arthroplasty Right--has had 2 TKA--first in [facility]--got infected then had another TKA at [facility] Hx laparoscopic cholecystectomy 03/01/23 Dr. Alarcon Hx of colonoscopy 2009 History of hernia repair umbilical and abdominal R side H/O: hysterectomy w/ BSO; had precancerous cells age 14, then had hyst for menometrorrhagia Hx of appendectomy 2005 Hx of laparoscopic gastric banding 2009 Family History Mother CAD (coronary artery disease) Stroke Father CAD (coronary artery disease) Colon cancer Other Cancer Diabetes Hypertension Social History Smoking and tobacco/nicotine status: current every day tobacco/nicotine user cigarettes Packs smoked per day: 1.5 Years cigarettes smoked: 28 Alcohol intake: never Substance/Drug Use: never Household members: significant other Housing: House Marital status: / Number of children: 0 Current occupational status: employed Current occupation: [employer] Female Reproductive History: Spontaneous abortions: No Physical Exam Const: COMMON NORMALS: no acute distress, patient oriented x3 and alert GENERAL APPEARANCE: cooperative NUTRITIONAL APPEARANCE: obese Resp: COMMON NORMALS: normal respiratory effort and clear to auscultation bilaterally AUSCULTATION: clear to auscultation bilaterally Cardio: COMMON NORMALS: regular rate and regular rhythm RATE: regular rate RHYTHM: regular rhythm Extremity: COMMON NORMALS: normal to inspection, capillary refill normal, no calf tenderness and no pedal edema GENERAL: Yes normal exam except as noted LEFT LOWER EXTREMITY: Yes knee joint (TTP posteriomedial L knee pain) Left knee: Yes inspection (no erythema or overlying warmth to the joint), Yes ROM (pain with ROM but fairly normal micromovements) and Yes neurovascular exam (normal) Neuro: COMMON NORMALS: patient oriented x3, moves all extremities, no focal motor deficits and no sensory deficits noted SENSORIUM/ORIENTATION: Yes alert Course Vital Signs: Vital signs: Vital Signs Temperature 97.7 F 05/22/25 14:27 Pulse Rate 87 05/22/25 14:27 Respiratory Rate 18 05/22/25 14:27 Blood Pressure 129/98 05/22/25 15:11 Pulse Oximetry 97 05/22/25 14:27 Oxygen Delivery Me thod Room Air 05/22/25 14:27 MDM - Extremity (Nontraumatic) Medical Decision Making Patient is a 44-year-old female here for left knee pain that she noticed upon awakening. No injury or trauma. Initially had XRs ordered but without injury or trauma I feel these will be fairly low yield. She has had imaging through her orthopedics team during routine care of osteoarthritis of the knee. At this point I do not suspect a septic arthritis, ruptured Bakers, pseudoaneurysm, septic bursitis, or other emergent condition. Patient will be treated with steroids and anti-inflammatories. She has crutches she can use as needed. Recommend she follow-up with her orthopedic team or primary care in the meantime. Return ED precautions discussed. No radiology studies performed this visit Discharge Plan Discharge Patient Disposition: Home Clinical Impression: Pain in left knee Condition: Stable Prescriptions: New ibuprofen 800 mg tablet 800 mg PO Q8H PRN (Reason: pain) Qty: 20 0RF methylprednisolone [Medrol (Eduardo)] 4 mg tablets,dose pack See Rx Instructions .ROUTE .COMPLEX Qty: 21 0RF Rx Instructions: orally per package directions No Action Trulicity 1.5 mg/0.5 mL pen injector 1.5 mg SUBCUT .qwk Qty: 2 3RF pantoprazole 40 mg tablet,delayed release (DR/EC) 40 mg PO BID Qty: 30 0RF Rx Instructions: stop omeprazole while taking this omeprazole 20 mg capsule,delayed release(DR/EC) 20 mg PO DAILY Qty: 90 3RF gabapentin 300 mg capsule See Rx Instructions .ROUTE .COMPLEX Qty: 120 5RF Dose Instruction: TAKE 1 CAPSULE BY MOUTH THREE TIMES DAILY AT 9 AM, NOON, AND 8 PM Rx Instructions: Take 1 capsule (300mg) by mouth at 9am and 12pm and two capsules (600mg) at bedtime. quetiapine [Seroquel] 100 mg tablet 100 mg PO .HS Qty: 30 2RF prazosin 2 mg capsule 4 mg PO BEDTIME Qty: 60 2RF citalopram 20 mg tablet 20 mg PO QAM Qty: 30 2RF carvedilol 3.125 mg tablet 3.125 mg PO BID Qty: 60 5RF insulin glargine [Lantus Solostar U-100 Insulin] 100 unit/mL (3 mL) insulin pen 60 unit SUBCUT QAM Qty: 45 1RF (DME) Dexcom G7 Sensor Device See Rx Instructions .MEDSUPPLY Qty: 3 12RF Rx Instructions: Change every 10 days; Use as directed to check blood sugar tramadol 50 mg tablet 50 mg PO TID PRN (Reason: pain) Qty: 90 3RF tizanidine 4 mg tablet 4 mg PO TID PRN (Reason: Muscle Spasm) Qty: 60 2RF atorvastatin [Lipitor] 40 mg tablet 40 mg PO QPM Qty: 90 2RF Jardiance 25 mg tablet 25 mg PO DAILY Qty: 90 1RF Rx Instructions: on insulin, failed metformin; uncontrolled amitriptyline 25 mg tablet 25 mg PO DAILY Qty: 30 5RF insulin lispro [Humalog KwikPen Insulin] 100 unit/mL insulin pen See Rx Instructions .ROUTE .COMPLEX Rx Instructions: Per sliding scale; up to 30 units three times daily with meals. Discharge Orders: Discharge ED (Routine); Ordered 05/22/25 Ordered By: Idalmis Gilbert Referrals: Moris Null DO [Primary Care Provider, Family Practice] Patient Instructions: Patient Portal & Kalyn Instructions Activity Restrictions/Additional Instructions: As we discussed, we will place you on steroids and anti-inflammatories. You may ice and elevate the knee to help with swelling and pain. You will be provided an Erik wrap here prior to discharge. You have indicated that you have crutches at home you may use. Follow-up with primary care in between now and when you see your store specialist. Print Language: Bhutanese Coding Level of Care Code ED Director Of Cardiology for Alcides Biggs
[2025-05-22 15:11] VITALS: BP 129/98
== END 2025-05-22 15:16 | disposition home or self-care (01) ==
PROVIDERS: Emergency Provider Physician Assistant; PCP Family Medicine
DX: M25.562 Pain in left knee (principal); Z79.4 Long term (current) use of insulin; Z79.85 Long-term (current) use of injectable non-insulin antidiabetic drugs; F17.210 Nicotine dependence, cigarettes, uncomplicated; I25.10 Atherosclerotic heart disease of native coronary artery without angina pectoris; E78.5 Hyperlipidemia, unspecified; E11.42 Type 2 diabetes mellitus with diabetic polyneuropathy
CPT/HCPCS: 99283

== ENCOUNTER → 2025-06-04 13:30 | Outpatient (BNVA) | payer MEDICAID, SELFPAY ==
[2024-10-24 15:22] VITALS: BP 117/82; BMI 42.7
== END ==
PROVIDERS: PCP Family Medicine; Visit Provider Family Medicine
DX: R79.89 Other specified abnormal findings of blood chemistry (principal); E11.9 Type 2 diabetes mellitus without complications; Z79.4 Long term (current) use of insulin; E03.9 Hypothyroidism, unspecified; E87.6 Hypokalemia
CPT/HCPCS: 80048; 82607; 83036; 84439; 84443; 85025

== ENCOUNTER 2025-06-12 13:39 | Outpatient (CLI) | payer MEDICAID, SELFPAY ==
[2024-10-24 15:22] VITALS: BP 117/82; BMI 42.7
--- NOTE | 2025-06-12 13:45 | MR_ITS ---
WS: [id number] MRI HEAD WITH CONTRAST WITH ATTENTION TO THE INTERNAL AUDITORY CANALS TECHNIQUE: Sagittal T1, T2 axial, T2 axial flair, axial susceptibility weighted imaging, axial diffusion weighted images, and coronal T2 images were obtained. Pre and post T1 axial and post T1 coronal images. ADC and FSPGR images. Post gadolinium images with attention to the internal auditory canals. Axial fiesta imaging. CLINICAL INFORMATION: DIZZINESS AND GIDDINESS COMPARISON: MRI 10/23/2024 FINDINGS: No evidence of restricted diffusion to suggest acute ischemia. Ventricular system and basilar cisterns are patent. No suspicious intracranial signal abnormalities. Normal salguero-white differentiation. Normal posterior fossa. Normal vascular flow voids at the skull base. No extra-axial fluid collections. No evidence of mass or mass effect. No hemosiderin on the susceptibility weighted images. Normal optic chiasm and pituitary infundibulum. The temporal lobes and hippocampal formations are normal in appearance. Proximal 7th and 8th cranial nerves are normal in appearance. No evidence of enhancing IAC or CP angle mass. Normal trigeminal nerve root entry zones. No abnormal gadolinium enhancement. Normal dural venous sinuses. MR/MR iac's wo/w con* [id number] IMPRESSION: 1. Proximal 7th and 8th cranial nerves are normal in appearance. Normal trigem inal nerve root entry zones. No evidence of enhancing IAC or CP angle mass. 2. Mastoid air cells are well aerated. 3. No hemosiderin on susceptibility-weighted images.
[2025-06-12] MEDS: gadobenate dimeglumine 20 mL vial 17 ML IV (14:42)
== END 2025-06-12 13:40 | disposition home or self-care (01) ==
PROVIDERS: PCP Family Medicine; Visit Provider Specialist
DX: R42 Dizziness and giddiness (principal)
CPT/HCPCS: 70553; A9577